=== PATIENT | female | born 1935 | race Caucasian/White ===

== ENCOUNTER 2016-10-30 09:15 | Emergency (ER) | payer BC ==
[~2016-10-30] VITALS: Ht 167.6 cm; Wt 64.0 kg
[~2016-10-30 09:15] MED LIST: CALC500C3 PO; CLC100X PO; CLR10 PO; COEN200C4 PO; DICL1GEL28 TD; FSM70 PO; LRT5 PO
[2016-10-30 09:22] VITALS: TEMP 36.5; Ht 167.6 cm; Wt 64.0 kg
[2016-10-30] MEDS ORDERED: METOPROLOL TARTRATE 50 MG TAB PO STA (09:52)
[2016-10-30] MEDS ORDERED: ONDANSETRON INJ 2 MG/ML 2 ML VIAL IV STA (09:53)
[2016-10-30 09:58] LABS: BASO % 0.1 %; BASO ABS # 0.02 K/uL (0-0.2); COMPLETE YES; EOS % 0.1 %; HEMATOCRIT 47.1 % (37-47); IG% 0.2 %; LYMPH ABS # 1.61 K/uL (1.2-3.4); MEAN CELL VOLUME 94.4 fL (80-100); MEAN CORPUSCULAR HEMOGLOBIN 32.5 pg (25-34); MEAN CORPUSCULAR HGB CONC 34.4 g/dl (32-36); NEUT % 84.6 %; PLATELET COUNT 213 K/uL (130-400); RED BLOOD COUNT 4.99 M/uL (4.2-5.4); WHITE BLOOD COUNT 17.95 K/uL (4.8-10.8)
[2016-10-30] MEDS ORDERED: COEN150C PO (09:59)
[2016-10-30] MEDS ORDERED: DOCU-94 PO (10:02)
[2016-10-30] MEDS ORDERED: HYDR-3419 PO (10:02)
[2016-10-30 10:32] LABS: ALKALINE PHOSPHATASE 87 U/L (45-117); ALT/SGPT 25 U/L (12-78); BLOOD UREA NITROGEN 11 mg/dl (7-18); BUN/CREATININE RATIO 15.2 (10-20); CALCIUM 9.1 mg/dl (8.5-10.1); CARBON DIOXIDE 32 mmol/L (21-32); CHLORIDE 96 mmol/L (98-107); CREATININE 0.75 mg/dl (0.60-1.20); GLUCOSE 140 mg/dl (70-99)
[2016-10-30 10:39] LABS: POTASSIUM 3.5 mmol/L (3.5-5.1); SODIUM 136 mmol/L (136-145)
--- NOTE | 2016-10-30 10:44 | DIAGNOSTIC IMAGING REPORT ---
CHEST ONE VIEW PORTABLE CLINICAL HISTORY: Altered mental status. Weakness. COMPARISON STUDY: Chest radiograph March 12, 2014. FINDINGS: Lung volumes are mildly diminished. There is no pneumothorax or pleural effusion. There is no evidence of pulmonary edema. No consolidation is identified. Cardiomediastinal silhouette is normal. IMPRESSION: No acute cardiopulmonary findings. Electronically signed by: Cornelio Davison M.D. 10/30/2016 10:42 AM Dictated Date/Time: 10/30/2016 10:42 AM
[2016-10-30 10:47] LABS: AST/SGOT 19 U/L (15-37); CKMB/CK RATIO 1.7 (0-3.0); MAGNESIUM 1.9 mg/dl (1.8-2.4)
[2016-10-30 10:53] LABS: URINE APPEARANCE CLEAR (CLEAR); URINE BILIRUBIN NEG (NEG); URINE COLOR YELLOW; URINE NITRITE NEG (NEG); URINE SPECIFIC GRAVITY 1.009 (1.000-1.030); UROBILINOGEN NEG (NEG); ZZUR CULT IF INDIC CLEAN CATCH NO
[2016-10-30 10:55] LABS: MANUAL MICROSCOPIC REQUIRED? NO; REVIEW REQ? NO
[2016-10-30] MEDS ORDERED: EZET10TA47 PO (11:17)
[2016-10-30] MEDS ORDERED: DULO-24 PO (11:17)
[2016-10-30] MEDS ORDERED: CLB/200 PO (11:17)
[2016-10-30] MEDS ORDERED: METO50TA16 PO (11:17)
--- NOTE | 2016-10-30 11:28 | DIAGNOSTIC IMAGING REPORT ---
HEAD CT NONCONTRAST CT DOSE: 537.48 mGy.cm HISTORY: Mental status change EVALUATE ALTERED MENTAL STATUS/WEAKNESS TECHNIQUE: Multiaxial CT images of the head were performed without the use of intravenous contrast. Comparison: None. Findings: The paranasal sinuses and mastoid air cells are clear. Findings of mild chronic small vessel change of aging. Ventricular system is midline. Mild benign tentorial calcification. No acute intracranial hemorrhage Impression: Age-related change. No acute process. Electronically signed by: Wlilie Montes M.D. 10/30/2016 11:26 AM Dictated Date/Time: 10/30/2016 11:26 AM
[2016-10-30 11:32] LABS: PARTIAL THROMBOPLASTIN RATIO 1.1; PROTHROMBIN TIME (PATIENT) 11.2 SECONDS (9.0-12.0)
[2016-10-30] MEDS ORDERED: PROCHLORPERAZINE 5 MG/ML 2 ML VIAL IV STA (11:52)
[2016-10-30] MEDS ORDERED: AMLO5TAB2 PO (11:58)
--- NOTE | 2016-10-30 11:58 | EMERGENCY ROOM VISIT NOTE ---
History Report prepared by Jorge: Marcy Cai Under the Supervision of: Beth PraterO. First contact with patient: 09:44 Chief Complaint: HYPERTENSION Stated Complaint: HIGH BLOOD PRESSURE, NAUSEA History of Present Illness The patient is a 81 year old female who presents to the Emergency Room with complaints of persistent hypertension starting last night. She also complains of lightheadedness, and nausea. The patient denies chest pain, shortness of breath, abdominal pain, or any other complaints. She takes Metoprolol for A-Fib but did not take it this morning. The patient also complains of increased stressed at home. Her has Alzheimer's disease. Source of History: patient Onset: last night Position: other (global) Quality: other (hypertension) Timing: other (persistent) Associated Symptoms: + nausea, No SOB, No abdominal pain, No chest pain Review of Systems See HPI for pertinent positives & negatives. A total of 10 systems reviewed and were otherwise negative. Past Medical & Surgical Medical Problems: (1) A-fib (2) CHF (congestive heart failure) (3) CHF (congestive heart failure) (4) Lumbar stenosis with neurogenic claudication (5) Osteoporosis Family History No significant family history Social History Smoking Status: Never Smoker Alcohol Use: occasionally Drug Use: none Marital Status: Housing Status: lives with significant other Occupation Status: unemployed Current/Historical Medications Scheduled Amlodipine Besylate (Norvasc), 1 TAB PO DAILY Aspirin (Aspirin Ec), 81 MG PO QAM Celecoxib (CeleBREX), 1 CAP PO HS Coenzyme Q10 (Ubidecarenone) (Co Q-10), 150 MG PO DAILY Docusate Sodium (Colace), 1 CAP PO BID Duloxetine HCl (Cymbalta), 1 CAP PO HS Ezetimibe (Zetia), 10 MG PO QAM Metoprolol Tartrate (Lopressor) (Lopressor), 50 MG PO BID Multivitamins/Minerals (Mvi With Minerals), 1 TAB PO QAM Scheduled PRN Hydrocodon/Acetaminophen 5MG/300MG (Vicodin (5MG/300MG)), 1 TAB PO Q6H PRN for Pain Loratadine (Claritin), 10 MG PO DAILY PRN for ALLERGIC REACTION Allergies Coded Allergies: Penicillins (Verified Allergy, Mild, RASH, 10/30/16) Amoxicillin (Verified Allergy, Unknown, RASH, 10/30/16) Physical Exam Vital Signs Date Time Temp Pulse Resp B/P Pulse Ox O2 Delivery O2 Flow Rate FiO2 10/30/16 11:45 63 18 189/92 93 Room Air 10/30/16 11:31 65 20 206/77 92 Room Air 10/30/16 10:57 70 22 209/87 93 Room Air 10/30/16 10:05 69 18 208/96 96 Room Air 10/30/16 09:37 67 10/30/16 09:22 36.5 67 18 209/92 96 Room Air Physical Exam CONSTITUTIONAL/VITAL SIGNS: Reviewed / noted above. GENERAL: Non-toxic in appearance. INTEGUMENTARY: Warm, dry, and [place]. HEAD: Normocephalic. EYES: without scleral icterus or trauma. ENT/OROPHARYNX: clear and moist. LYMPHADENOPATHY/NECK: Is supple without lymphadenopathy or meningismus. RESPIRATORY: Lungs clear and equal. CARDIOVASCULAR: Regular rate and rhythm. GI/ABDOMEN: Soft and nontender. No organomegaly or pulsatile mass. No rebound or guarding. Normal bowel sounds. EXTREMITIES: Warm and well perfused. BACK: No CVA tenderness. NEUROLOGICAL: Intact without focal deficits. PSYCHIATRIC: normal affect. MUSCULOSKELETAL: Normally developed with good muscle tone. Medical Decision & Procedures ER Provider Diagnostic Interpretation: X ray results and stated below per my interpretation and radiologist interpretation. CT radiology results and stated below per my review and radiologist interpretation: CHEST ONE VIEW PORTABLE CLINICAL HISTORY: Altered mental status. Weakness. COMPARISON STUDY: Chest radiograph March 12, 2014. FINDINGS: Lung volumes are mildly diminished. There is no pneumothorax or pleural effusion. There is no evidence of pulmonary edema. No consolidation is identified. Cardiomediastinal silhouette is normal. IMPRESSION: No acute cardiopulmonary findings. Electronically signed by: Cornelio Davison M.D. 10/30/2016 10:42 AM Dictated Date/Time: 10/30/2016 10:[address] CT DOSE: 537.48 mGy.cm HISTORY: Mental status change EVALUATE ALTERED MENTAL STATUS/WEAKNESS TECHNIQUE: Multiaxial CT images of the head were performed without the use of intravenous contrast. Comparison: None. Findings: The paranasal sinuses and mastoid air cells are clear. Findings of mild chronic small vessel change of aging. Ventricular system is midline. Mild benign tentorial calcification. No acute intracranial hemorrhage Impression: Age-related change. No acute process. Electronically signed by: Willie Montes M.D. 10/30/2016 11:26 AM Dictated Date/Time: 10/30/2016 11:26 AM Laboratory Results 10/30/16 09:42 Red Blood Count 4.99, Mean Corpuscular Volume 94.4, Mean Corpuscular Hemoglobin 32.5, Mean Corpuscular Hemoglobin Concent 34.4, Mean Platelet Volume 10.0, Neutrophils (%) (Auto) 84.6, Lymphocytes (%) (Auto) 9.0, Monocytes (%) (Auto) 6.0, Eosinophils (%) (Auto) 0.1, Basophils (%) (Auto) 0.1, Neutrophils # (Auto) 15.19, Lymphocytes # (Auto) 1.61, Monocytes # (Auto) 1.07, Eosinophils # (Auto) 0.02, Basophils # (Auto) 0.02 10/30/16 09:42 Test 10/30/16 09:42 10/30/16 10:32 10/30/16 11:10 White Blood Count 17.95 K/uL (4.8-10.8) Red Blood Count 4.99 M/uL (4.2-5.4) Hemoglobin 16.2 g/dL (12.0-16.0) Hematocrit 47.1 % (37-47) Mean Corpuscular Volume 94.4 fL (80-100) Mean Corpuscular Hemoglobin 32.5 pg (25-34) Mean Corpuscular Hemoglobin Concent 34.4 g/dl (32-36) Platelet Count 213 K/uL (130-400) Mean Platelet Volume 10.0 fL (7.4-10.4) Neutrophils (%) (Auto) 84.6 % Lymphocytes (%) (Auto) 9.0 % Monocytes (%) (Auto) 6.0 % Eosinophils (%) (Auto) 0.1 % Basophils (%) (Auto) 0.1 % Neutrophils # (Auto) 15.19 K/uL (1.4-6.5) Lymphocytes # (Auto) 1.61 K/uL (1.2-3.4) Monocytes # (Auto) 1.07 K/uL (0.11-0.59) Eosinophils # (Auto) 0.02 K/uL (0-0.5) Basophils # (Auto) 0.02 K/uL (0-0.2) RDW Standard Deviation 44.9 fL (36.4-46.3) RDW Coefficient of Variation 13.0 % (11.5-14.5) Immature Granulocyte % (Auto) 0.2 % Immature Granulocyte # (Auto) 0.04 K/uL (0.00-0.02) Anion Gap 8.0 mmol/L (3-11) Est Creatinine Clear Calc Drug Dose 56.9 ml/min Estimated GFR () 87.9 Estimated GFR (Non- 75.8 BUN/Creatinine Ratio 15.2 (10-20) Calcium Level 9.1 mg/dl (8.5-10.1) Magnesium Level 1.9 mg/dl (1.8-2.4) Total Bilirubin 0.8 mg/dl (0.2-1) Direct Bilirubin 0.2 mg/dl (0-0.2) Aspartate Amino Transf (AST/SGOT) 19 U/L (15-37) Alanine Aminotransferase (ALT/SGPT) 25 U/L (12-78) Alkaline Phosphatase 87 U/L (45-117) Total Creatine Kinase 82 U/L (26-192) Creatine Kinase MB 1.4 ng/ml (0.5-3.6) Creatine Kinase MB Ratio 1.7 (0-3.0) Troponin I < 0.015 ng/ml (0-0.045) Total Protein 8.4 gm/dl (6.4-8.2) Albumin 4.1 gm/dl (3.4-5.0) Lipase 116 U/L (73-393) Thyroid Stimulating Hormone (TSH) 1.140 uIu/ml (0.300-4.500) Urine Color YELLOW Urine Appearance CLEAR (CLEAR) Urine pH 8.0 (4.5-7.5) Urine Specific Helix 1.009 (1.000-1.030) Urine Protein NEG (NEG) Urine Glucose (UA) NEG (NEG) Urine Ketones TRACE (NEG) Urine Occult Blood NEG (NEG) Urine Nitrite NEG (NEG) Urine Bilirubin NEG (NEG) Urine Urobilinogen NEG (NEG) Urine Leukocyte Esterase NEG (NEG) Urine WBC (Auto) 1-5 /hpf (0-5) Urine RBC (Auto) 5-10 /hpf (0-4) Urine Hyaline Casts (Auto) 0 /lpf (0-5) Urine Epithelial Cells (Auto) 10-20 /lpf (0-5) Urine Bacteria (Auto) NEG (NEG) Prothrombin Time 11.2 SECONDS (9.0-12.0) Prothromb Time International Ratio 1.0 (0.9-1.1) Activated Partial Thromboplast Time 28.2 SECONDS (21.0-31.0) Partial Thromboplastin Ratio 1.1 Laboratory results as stated above per my review. Medications Administered Medications (Trade) Dose Ordered Sig/Jordan Route Start Time Stop Time Status Last Admin Dose Admin Metoprolol Tartrate (Lopressor Tab) 50 mg NOW STAT PO 10/30/16 09:52 10/30/16 09:54 DC 10/30/16 10:08 50 MG Ondansetron HCl (Zofran Inj) 4 mg NOW STAT IV 10/30/16 09:53 10/30/16 09:54 DC 10/30/16 10:08 4 MG Amlodipine Besylate (Norvasc Tab) 5 mg NOW ONCE PO 10/30/16 12:00 10/30/16 12:01 DC 10/30/16 12:05 5 MG Prochlorperazine Edisylate (Compazine Inj) 5 mg NOW STAT IV 10/30/16 11:52 10/30/16 11:54 DC 10/30/16 12:05 5 MG ECG Indication: other (Hypertension) Rate (beats per minute): 64 Rhythm: normal sinus Findings: no acute ischemic change, no ectopy ED Course 0944: Previous medical records were reviewed. The patient was evaluated in room A07. A complete history and physical examination was performed. 0952: Lopressor Tab 50 mg PO 0953: Zofran Inj 4 mg IV 1152: Compazine Inj 5 mg IV 1200: Norvasc Tab 5 mg PO, Norvasc Tab 5 mg PO 1201: On reevaluation, the patient is resting comfortably. I discussed the results and findings with the patient. She verbalized agreement of the treatment plan. She was discharged home. Medical Decision Differential includes acute coronary syndrome, myocardial infarction, CVA, TIA, anemia, infection, pneumonia, UTI, pyelonephritis, poor nutrition, dehydration, electrolyte disturbance,hypoglycemia. This is a 81-year-old female who presents to the ED with a chief complaint of hypertension. The patient states that she has recently felt tired and lightheaded and had some nausea. She checked her blood pressure this morning and it was elevated. She came into the ED for evaluation. She denies any focal deficits. No chest pains or shortness of breath. The patient has an elevated blood pressure 209/92. Her exam does not show any abnormalities. Chest x-ray did not show acute disease. EKG shows a normal sinus rhythm. CT scan of the brain was negative for acute disease. A blood cell count was 17.95. Troponin is negative. Complete metabolic panel is negative. TSH is normal. Urine did not show infection. The patient was told the results of the test. The cause for leukocytosis is unclear. She could have a viral type syndrome as she is feeling nauseated. She had taken Zofran at home and was given IV Zofran and IV Compazine here for this. Blood pressure is elevated. She was given her normal Lopressor as she did not take her Lopressor this morning. Her blood pressure did not improve after this. She was started on Norvasc 5 mg by mouth. Looking back in the records, her BP was elevated in March nearly the same as it is now. She was given a prescription for Norvasc. She has a follow-up with PCP for recheck this week. Impression Primary Impression: Systolic hypertension Additional Impression: Nausea Scribe Attestation The scribe's documentation has been prepared under my direction and personally reviewed by me in its entirety. I confirm that the note above accurately reflects all work, treatment, procedures, and medical decision making performed by me. Departure Information Dispostion Home / Self-Care Prescriptions Amlodipine Besylate (NORVASC) 5 Mg Tab 1 TAB PO DAILY for 30 Days, #30 TAB 0 Refills Prov: Landry Hamilton D.O. 10/30/16 Referrals Preston Moreno M.D. (PCP) Patient Instructions Hypertension Control, [facility] Additional Instructions Norvasc 5 mg daily has been prescribed. Follow-up with your doctor for recheck this week to have your blood pressure recheck. Return to the emergency department for new or worsening symptoms. Continue your current medications. Problem Qualifiers
[2016-10-30] MEDS ORDERED: AMLODIPINE BESYLATE 5 MG TAB PO ONE ×2 (12:00)
[2016-10-30 12:40] VITALS: BP 183/84; PULSE 64; O2SAT 93
[2016-10-30] MEDS ORDERED: ASPI81TA28 PO (19:38)
[2016-10-30] MEDS ORDERED: MULT-513 PO (19:38)
[2016-11-08] MEDS ORDERED: CPR500 PO (12:08)
[2016-11-08] MEDS ORDERED: APIX1TAB3 PO (12:08)
[2016-11-08] MEDS ORDERED: METR500T PO (12:08)
[2016-11-08] MEDS ORDERED: PRT40 PO (12:08)
[2016-11-08] MEDS ORDERED: OXYC-57 PO (12:08)
[2016-11-08] MEDS ORDERED: CRDCD180 PO (12:08)
[2017-01-17] MEDS ORDERED: PRT/40 PO (05:58)
== END 2016-10-30 12:58 | disposition home or self-care (01) ==
LOC: C.EDB 09:17 → C.EDA 12:58
DX: I10 Essential (primary) hypertension (principal); R11.0 Nausea; I48.91 Unspecified atrial fibrillation; Z88.0 Allergy status to penicillin; Z88.1 Allergy status to other antibiotic agents

== ENCOUNTER 2016-10-31 18:22 | Inpatient (IN) | payer BC, OTHER ==
[~2016-10-31] VITALS: Ht 167.6 cm; Wt 70.6 kg
[~2016-10-31 18:22] MED LIST changes: +AMLO5TAB2 PO; +ASPI81TA28 PO; -CALC500C3 PO; +CLB/200 PO; -CLC100X PO; +COEN150C PO; -COEN200C4 PO; -DICL1GEL28 TD; +DOCU-94 PO; +DULO-24 PO; +EZET10TA47 PO; -FSM70 PO; +HYDR-3419 PO; -LRT5 PO; +METO50TA16 PO; +MULT-513 PO
[2016-10-31] MEDS ORDERED: SODIUM CHLORIDE 0.9% 1000ML 250 ML IV STA (18:34)
[2016-10-31] MEDS ORDERED: SODIUM CHLORIDE 0.9% 1000ML 1,000 ML IV STA (18:34)
[2016-10-31] MEDS ORDERED: OPTIRAY 320 IV PRN (18:45)
--- NOTE | 2016-10-31 18:52 | EMERGENCY ROOM VISIT NOTE ---
History Report prepared by Jorge: Meseret Armstrong Under the Supervision of: Dr. Schuyler Chambers M.D. First contact with patient: 18:22 Chief Complaint: WEAKNESS Stated Complaint: WEAKNESS History of Present Illness The patient is a 81 year old female who presents to the Emergency Room with complaints of worsening weakness for the past couple of days. The patient was seen in the ED yesterday for abdominal pain and hypertension. She was discharged home on Amlodipine. Per EMS, when the patient got home yesterday she told her daughter that she still was not feeling well. She has been complaining of feeling weak. Daughter told EMS that the patient seems slightly altered today. She was staring off with a blank expression on her face throughout the day today. She seemed slightly confused about some of the questions that EMS was asking her. The patient reports RLQ abdominal pain, back pain, dark colored urine, and lower leg pain and weakness bilaterally. She denies shortness of breath, chest pain, headache, fever, and numbness. EMS states that she took a hydrocodone at 230pm. She then took a nap and when she woke up she tried to walk downstairs but became too weak and had to sit down retirement down the stairs. Her oxygen saturation was in the 80s en route to the ED but improved with 2L of O2. 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 A total of 10 systems reviewed and were otherwise negative. Past Medical & Surgical Medical Problems: (1) A-fib (2) Altered mental status (3) CHF (congestive heart failure) (4) CHF (congestive heart failure) (5) Lumbar stenosis with neurogenic claudication (6) Osteoporosis (7) V tach Old medical records were reviewed. Nurse's notes were reviewed and I agree with. She is not presently on any blood thinners Family History FH: heart disease Social History Drug Use: none Marital Status: Housing Status: lives with significant other Occupation Status: unemployed Current/Historical Medications Scheduled Amlodipine Besylate (Norvasc), 1 TAB PO DAILY Aspirin (Aspirin Ec), 81 MG PO QAM Celecoxib (CeleBREX), 1 CAP PO HS Coenzyme Q10 (Ubidecarenone) (Co Q-10), 150 MG PO DAILY Docusate Sodium (Colace), 1 CAP PO BID Duloxetine HCl (Cymbalta), 1 CAP PO HS Ezetimibe (Zetia), 10 MG PO QAM Metoprolol Tartrate (Lopressor) (Lopressor), 50 MG PO BID Multivitamins/Minerals (Mvi With Minerals), 1 TAB PO QAM Scheduled PRN Hydrocodon/Acetaminophen 5MG/300MG (Vicodin (5MG/300MG)), 1 TAB PO Q6H PRN for Pain Loratadine (Claritin), 10 MG PO DAILY PRN for ALLERGIC REACTION Allergies Coded Allergies: Penicillins (Verified Allergy, Mild, RASH, 10/30/16) Amoxicillin (Verified Allergy, Unknown, RASH, 10/30/16) Physical Exam Vital Signs Date Time Temp Pulse Resp B/P Pulse Ox O2 Delivery O2 Flow Rate FiO2 10/31/16 20:07 60 42 94 10/31/16 19:59 130/85 10/31/16 19:52 72 20 94 10/31/16 19:47 153/68 10/31/16 19:37 73 38 94 10/31/16 19:29 146/75 10/31/16 19:26 112 10/31/16 19:22 81 19 95 10/31/16 19:07 62 40 92 10/31/16 18:59 132/62 10/31/16 18:52 55 40 93 10/31/16 18:42 109 10/31/16 18:38 36.6 58 30 126/54 88 Room Air 10/31/16 18:35 126/54 Physical Exam General: Well developed well nourished non-ill appearing older female in no acute distress, breathing comfortably on room air. Normal speech. Answers most questions appropriately but others appears to be confused, sometimes slowly, no slurred speech. HEENT: Normal cephalic atraumatic. Pupils are equal round and reactive to light. Extraocular movements are intact. Oropharynx is pink with moist mucous membranes. No swelling of the mouth lips or tongue. Neck: Supple with a midline trachea. No meningeal signs or stiffness, no JVD or bruits. No Stridor. Chest: Clear to auscultation bilaterally. No wheezes or rhonchi. No increased work of breathing. Heart: regular rate and rhythm. Abdomen: Soft moderately tender in the right lower abdomen. Nondistended without rebound guarding or rigidity. Extremities: Mild to moderately weak bilaterally. No cyanosis clubbing or edema. No calf tenderness or assymetry Spine/Back. Non tender to palpation. No CVA tenderness Skin: Good turgor without rashes. Neurologic exam: Cranial nerves two through 12 are intact. Motor and sensation are intact and symmetrical throughout. Medical Decision & Procedures ER Provider Diagnostic Interpretation: A repeat ECG performed in the ED reveals sinus tachycardia at 123 with frequent PVCs and PACs, left axis deviation noted. Radiology results as stated below per my review and radiologist interpretation: CHEST ONE VIEW PORTABLE HISTORY: Atypical CHEST PAIN COMPARISON: Chest 10/30/2016. FINDINGS: 5 mm nodular density within the right upper lobe will be assessed on the same day chest CTA. Patient is slightly rotated. Linear densities the left lung base consistent with subsegmental atelectasis. No new focal lung consolidations. No evidence for pulmonary edema. No pleural effusions. No pneumothorax. The heart is normal in size. IMPRESSION: No acute process within the chest. Possible 5 mm nodule within the right upper lobe will be assessed on the same day chest CT. Electronically signed by: Alfonso Hill M.D. 10/31/2016 7:42 PM Dictated Date/Time: 10/31/2016 7:40 PM Laboratory Results 10/31/16 19:00 Red Blood Count 4.84, Mean Corpuscular Volume 93.0, Mean Corpuscular Hemoglobin 32.6, Mean Corpuscular Hemoglobin Concent 35.1, Mean Platelet Volume 10.2, Neutrophils (%) (Auto) 85.8, Lymphocytes (%) (Auto) 3.9, Monocytes (%) (Auto) 9.9, Eosinophils (%) (Auto) 0.0, Basophils (%) (Auto) 0.1, Neutrophils # (Auto) 12.67, Lymphocytes # (Auto) 0.57, Monocytes # (Auto) 1.46, Eosinophils # (Auto) 0.00, Basophils # (Auto) 0.01 10/31/16 19:00 Test 10/31/16 19:00 10/31/16 19:05 10/31/16 19:15 White Blood Count 14.76 K/uL (4.8-10.8) Red Blood Count 4.84 M/uL (4.2-5.4) Hemoglobin 15.8 g/dL (12.0-16.0) Hematocrit 45.0 % (37-47) Mean Corpuscular Volume 93.0 fL (80-100) Mean Corpuscular Hemoglobin 32.6 pg (25-34) Mean Corpuscular Hemoglobin Concent 35.1 g/dl (32-36) Platelet Count 189 K/uL (130-400) Mean Platelet Volume 10.2 fL (7.4-10.4) Neutrophils (%) (Auto) 85.8 % Lymphocytes (%) (Auto) 3.9 % Monocytes (%) (Auto) 9.9 % Eosinophils (%) (Auto) 0.0 % Basophils (%) (Auto) 0.1 % Neutrophils # (Auto) 12.67 K/uL (1.4-6.5) Lymphocytes # (Auto) 0.57 K/uL (1.2-3.4) Monocytes # (Auto) 1.46 K/uL (0.11-0.59) Eosinophils # (Auto) 0.00 K/uL (0-0.5) Basophils # (Auto) 0.01 K/uL (0-0.2) RDW Standard Deviation 45.3 fL (36.4-46.3) RDW Coefficient of Variation 13.3 % (11.5-14.5) Immature Granulocyte % (Auto) 0.3 % Immature Granulocyte # (Auto) 0.05 K/uL (0.00-0.02) Urine Color DK YELLOW Urine Appearance CLOUDY (CLEAR) Urine pH 5.0 (4.5-7.5) Urine Specific Balm 1.013 (1.000-1.030) Urine Protein 1+ (NEG) Urine Glucose (UA) NEG (NEG) Urine Ketones TRACE (NEG) Urine Occult Blood 1+ (NEG) Urine Nitrite NEG (NEG) Urine Bilirubin NEG (NEG) Urine Urobilinogen NEG (NEG) Urine Leukocyte Esterase NEG (NEG) Urine WBC (Auto) 1-5 /hpf (0-5) Urine RBC (Auto) 0-4 /hpf (0-4) Urine Hyaline Casts (Auto) 1-5 /lpf (0-5) Urine Epithelial Cells (Auto) >30 /lpf (0-5) Urine Bacteria (Auto) 1+ (NEG) Urine Pathogenic Casts 0-3 GRANULAR CASTS /lpf (0) Anion Gap 11.0 mmol/L (3-11) Est Creatinine Clear Calc Drug Dose 30.5 ml/min Estimated GFR () 41.3 Estimated GFR (Non- 35.6 BUN/Creatinine Ratio 16.8 (10-20) Osmolality 276 mOsm/kg (280-300) Calcium Level 9.7 mg/dl (8.5-10.1) Magnesium Level 1.8 mg/dl (1.8-2.4) Total Bilirubin 1.6 mg/dl (0.2-1) Direct Bilirubin 0.4 mg/dl (0-0.2) Aspartate Amino Transf (AST/SGOT) 27 U/L (15-37) Alanine Aminotransferase (ALT/SGPT) 22 U/L (12-78) Alkaline Phosphatase 72 U/L (45-117) Total Protein 7.3 gm/dl (6.4-8.2) Albumin 3.5 gm/dl (3.4-5.0) Lipase 66 U/L (73-393) Thyroid Stimulating Hormone (TSH) 0.881 uIu/ml (0.300-4.500) Bedside Lactic Acid Venous 2.07 mmol/L (0.90-1.70) Bedside D-Dimer > 450 ng/mlFEU (0-450) Bedside Troponin I 0.000 ng/ml (0-0.045) Laboratory studies as stated above per my review. Medications Administered Medications (Trade) Dose Ordered Sig/Jordan Route Start Time Stop Time Status Last Admin Dose Admin Sodium Chloride 250 ml @ 999 mls/hr Q16M STAT IV 10/31/16 18:34 10/31/16 18:49 DC 10/31/16 19:00 999 MLS/HR Sodium Chloride (Nss 1000ml) 1,000 ml @ 100 mls/hr Q10H STAT IV 10/31/16 18:34 10/31/16 20:36 DC 10/31/16 19:20 100 MLS/HR Amiodarone HCL/ Dextrose (Nexterone / D5w) 150 mg NOW STAT IV 10/31/16 19:59 10/31/16 20:00 DC 10/31/16 20:15 150 MG Magnesium Sulfate (Magnesium Sulfate) 1 gm NOW STAT IV 10/31/16 20:18 10/31/16 20:20 DC 10/31/16 20:35 1 GM ECG Indication: altered mental status, weakness Rate (beats per minute): 56 Rhythm: sinus bradycardia Findings: no acute ischemic change, other (normal QRS) Comparison ECG Date: 10/30/2016 Change: no significant change ED Course 1821: Past medical records reviewed. The patient was evaluated in room C7, and a complete history and physical examination were performed. 1833: NSS 1000 ml @ 100 mls/hr IV, NSS 250 ml @ 999 mls/hr IV 1841: I reassessed the patient at this time. She agreed with the plan and seems very lucid. 1914: The patient's daughter has arrived in the ED. I spoke with both the patient and her daughter. I updated them on the results and treatment plan. 1940: I reassessed the patient and obtained a repeat ECG. 1944: [facility] was paged at this time. 1953: I reassessed the patient at this time. She is resting comfortably. She is having episodes of 2-3 beats of wide complex in a row. I discussed the results and treatment plan with the patient and her daughter. I answered all pertaining questions that they had. They expressed understanding and verbalized agreement. 1958: Nexterone 150 mg IV 2009: I spoke with Dr. Perez. We discussed the patients results and treatment plan. The patient will be evaluated by the [facility] for further management. 2015: I updated the patient and her daughter. Dr. Perez was at the bedside. 2043: I reassessed the patient. She seems more awake. She is non-tachycardic with less ectopy. 2124: I reassessed the patient again. She is much more lucid. Her HR with 90 with minimal ectopy. Medical Decision Differential diagnoses includes infection, CVA, PE, acute coronary syndrome, arrhythmia, electrolyte or metabolic abnormality. This patient comes in as described above. She was placed in room C7. She is here with several different complaints. She seems more confused today. She also has weakness in her legs. She was noted to be mildly hypoxemic as well and she's been having some abdominal pain which seems to have been more chronic. She's had no fall or trauma. She did have extensive workup yesterday and had a negative chest x-ray and urine. her white count was elevated at 17. On exam, she answers some questions appropriately but others not and her mental status seems to wax and wane. She appears in no respiratory distress but is hypoxemic. Abdomen is mildly mildly tender in the right lower abdomen. She seems weak in both her legs but has no focal neurologic findings. IV access was established. I was concerned for sepsis neurologic cardiac and other etiologies. She was hydrated with IV normal saline. I did order multiple blood testing as well as EKG and CAT scans of her head chest abdomen and pelvis. Her initial EKG shows sinus bradycardia. She has no significant electrolyte or metabolic abnormalities. White count is down from 17-14. While we're waiting to send her over to CAT scan she started been a lot of ectopy on the monitor and had a significant PACs as well as PVCs. She had multiple consecutive PVCs with small runs of V. tach. In light of this, I did give her amiodarone 150 mg IV. I attempted to contact the it security consulting director but he could not be reached by phone and did not return the call. The amiodarone seemed to settle her down. I also gave a gram of mag IV. Dr. Bauer saw her in the ER and has put additional orders for amiodarone and can admit her to the unit. She seemed to be doing much better and her mental status and seemed better. She was afebrile here. CAT scan was obtained on the way to the ICU of her head which was unremarkable. Her chest shows no evidence of PE and her abdomen shows what is likely a ruptured appendicitis Dr. Bauer is aware and has put her on antibiotics and have surgery see her as well. Consults Time Called: 2005 Consulting Physician: Dr. Perez Returned Call: [address] Perez. We discussed the patients results and treatment plan. The patient will be evaluated by the [facility] for further management. Impression Primary Impression: V tach Additional Impressions: Ruptured appendicitis Altered mental status Weakness Critical Care I have personally spent greater than 45 minutes of critical care time in the direct management of this patient. This includes bedside care, interpretation of diagnostic studies, and testing, discussion with consultants, patient, and family members, and other required patient management activities. This 45 minutes is in excess of all separately billable procedures. Scribe Attestation The scribe's documentation has been prepared under my direction and personally reviewed by me in its entirety. I confirm that the note above accurately reflects all work, treatment, procedures, and medical decision making performed by me. Departure Information Dispostion Being Evaluated By Hospitalist Patient Instructions My [facility] Problem Qualifiers
[2016-10-31 19:14] LABS: BASO % 0.1 %; BASO ABS # 0.01 K/uL (0-0.2); COMPLETE YES; IG% 0.3 %; LYMPH % 3.9 %; LYMPH ABS # 0.57 K/uL (1.2-3.4); MEAN CORPUSCULAR HEMOGLOBIN 32.6 pg (25-34); MEAN CORPUSCULAR HGB CONC 35.1 g/dl (32-36); MEAN PLATELET VOLUME 10.2 fL (7.4-10.4); MONO % 9.9 %; NEUT % 85.8 %; PLATELET COUNT 189 K/uL (130-400); RED BLOOD COUNT 4.84 M/uL (4.2-5.4); WHITE BLOOD COUNT 14.76 K/uL (4.8-10.8)
[2016-10-31 19:34] LABS: BUN/CREATININE RATIO 16.8 (10-20); CALCIUM 9.7 mg/dl (8.5-10.1); CREATININE 1.4 mg/dl (0.60-1.20); POTASSIUM 3.6 mmol/L (3.5-5.1)
--- NOTE | 2016-10-31 19:43 | DIAGNOSTIC IMAGING REPORT ---
CHEST ONE VIEW PORTABLE HISTORY: Atypical CHEST PAIN COMPARISON: Chest 10/30/2016. FINDINGS: 5 mm nodular density within the right upper lobe will be assessed on the same day chest CTA. Patient is slightly rotated. Linear densities the left lung base consistent with subsegmental atelectasis. No new focal lung consolidations. No evidence for pulmonary edema. No pleural effusions. No pneumothorax. The heart is normal in size. IMPRESSION: No acute process within the chest. Possible 5 mm nodule within the right upper lobe will be assessed on the same day chest CT. Electronically signed by: Alfonso Hill M.D. 10/31/2016 7:42 PM Dictated Date/Time: 10/31/2016 7:40 PM
[2016-10-31 19:45] LABS: URINE APPEARANCE CLOUDY (CLEAR); URINE BILIRUBIN NEG (NEG); URINE COLOR DK YELLOW; URINE EPITHELIAL CELL AUTO >30 /lpf (0-5); URINE NITRITE NEG (NEG); URINE SPECIFIC GRAVITY 1.013 (1.000-1.030); UROBILINOGEN NEG (NEG)
[2016-10-31 19:50] LABS: MANUAL MICROSCOPIC REQUIRED? NO; REVIEW REQ? YES
[2016-10-31 19:54] LABS: URINE PATH CASTS 0-3 GRANULAR CASTS /lpf (0)
[2016-10-31] MEDS ORDERED: AMIODARONE 150MG / 100ML D5W IV STA (19:59)
[2016-10-31] MEDS ORDERED: AMIODARONE IV BOLUS / DRIP IV STA (20:18)
[2016-10-31] MEDS ORDERED: MAGNESIUM SULFATE 1GM / D5W 1 GM BAG IV STA (20:18)
[2016-10-31] MEDS ORDERED: AMIODARONE / D5W 100 ML IV SCH (20:30)
[2016-10-31] MEDS ORDERED: AMIODARONE / D5W 200 ML IV SCH (20:45)
[2016-10-31] MEDS: NSS + 20MEQ KCL 1000ML 1,000 ML IV SCH (21:00)
[2016-10-31 22:10] VITALS: BP 137/60; PULSE 92; TEMP 36.4; O2SAT 93; Ht 167.6 cm; Wt 70.6 kg
--- NOTE | 2016-10-31 22:28 | DIAGNOSTIC IMAGING REPORT ---
HEAD CT NONCONTRAST CT DOSE: HISTORY: weakness, confusion TECHNIQUE: Multiaxial CT images of the head were performed without the use of intravenous contrast. Automated exposure control was utilized for this study. Comparison: Head CT 10/30/2016. Findings: The paranasal sinuses and mastoid air cells are clear. The calvarium and skull base are intact. There is no mass, hematoma, midline shift, acute infarct. White matter hypodensity is nonspecific but suggestive of microvascular ischemic change. The ventricles and sulci demonstrate mild age-related involutional changes. Stable slight increased density along the right tentorium, therefore, this is likely chronic. Impression: No significant change compared to the prior study. No acute intracranial abnormality. Electronically signed by: Alfonso Hill M.D. 10/31/2016 10:27 PM Dictated Date/Time: 10/31/2016 10:19 PM
--- NOTE | 2016-10-31 22:35 | DIAGNOSTIC IMAGING REPORT ---
CHEST CTA for PULMONARY ARTERIES CT DOSE: HISTORY: Short of breath. TECHNIQUE: Multiaxial CT images of the chest were performed following the intravenous administration of contrast to evaluate the pulmonary arteries. Maximal intensity projection images were also obtained. COMPARISON STUDY: None. FINDINGS: Mild anterior wedging within the T12 vertebral body is likely old. No acute fractures identified. The heart is normal in size. No pleural or pericardial effusions. Normal caliber thoracic aorta with no evidence for dissection. Evaluation of the subsegmental pulmonary arteries within the bilateral lower lobes are nondiagnostic due to the motion artifact. Otherwise, there are no filling defects seen within the remaining pulmonary arteries to suggest pulmonary embolus. Small hiatus hernia. No mediastinal or hilar lymphadenopathy. No acute fractures within the visualized osseous structures. No pneumothorax. The central airways are patent. 3 mm subpleural nodule along the right minor fissure is of doubtful clinical significance. Patchy densities within the base of the lower lobes. IMPRESSION: 1. No evidence for pulmonary embolus with limitations as described above. 2. Patchy densities within the bases of the bilateral lower lobes. This favors atelectasis. A pneumonia could also have a similar appearance but is considered less likely. 3. Small hiatus hernia. Electronically signed by: Alfonso Hill M.D. 10/31/2016 10:34 PM Dictated Date/Time: 10/31/2016 10:27 PM
--- NOTE | 2016-10-31 22:42 | DIAGNOSTIC IMAGING REPORT ---
ABDOMEN AND PELVIS CT WITH IV CONTRAST CT DOSE: 2.34 mGy.cm HISTORY: Sepsis. eval for infection TECHNIQUE: Multiaxial CT images of the abdomen and pelvis were performed following the use of intravenous contrast. COMPARISON STUDY: Pelvis CT 04/11/2016. FINDINGS: Left total hip arthroplasty. Old, healing left pubic ring fractures. Bilateral sacral insufficiency fractures are again noted. Small hiatus hernia. Mild thickening at the cecal base. There is a distended and fluid-filled appendix within the right lower quadrant measuring up to 16 mm in diameter. There is suggestion of a few small appendicoliths within the appendix. There is small amount of extraluminal gas within the right lower quadrant and suspected developing small abscess within the right pelvic cul-de-sac which is partially loculated. This measures 4.3 x 2.6 cm. Therefore, these findings are consistent with perforated acute appendicitis. The liver, gallbladder, pancreas, and spleen are unremarkable. Normal adrenal glands. The kidneys enhance normally. No hydronephrosis. No evidence for bowel obstruction. No retroperitoneal lymphadenopathy. The uterus enhances normally. The bladder is unremarkable. Colonic diverticulosis. IMPRESSION: 1. Above findings consistent with perforated acute appendicitis. There appears to be a small developing abscess within the right pelvic cul-de-sac. 2. No evidence for bowel obstruction. 3. Healing pelvic fractures as described above. 4. Small hiatus hernia. 5. Mild thickening at the cecal base is likely reactive to the acute appendicitis. Electronically signed by: Alfonso Hill M.D. 10/31/2016 10:41 PM Dictated Date/Time: 10/31/2016 10:34 PM
[2016-10-31] MEDS ORDERED: CIPROFLOXACIN 400MG / 200ML D5W IV STA (23:24)
[2016-10-31] MEDS ORDERED: METRONIDAZOLE 500MG / 100ML NSS IV STA (23:24)
[2016-10-31] MEDS ORDERED: METRONIDAZOLE / NSS 500 MG in PREMIXED NSS 100 ML IV SCH (23:45)
[2016-10-31] MEDS: CIPROFLOXACIN / D5W 400 MG in PREMIXED IN D5W 200 ML IV SCH (23:56)
[2016-10-31 23:59] VITALS: BP 125/48; PULSE 96; TEMP 36.5; O2SAT 92
[2016-11-01] VITALS (26 sets, daily range): BP systolic 109–151; BP diastolic 38–99; PULSE 77–99; TEMP 36.6–37.2; O2SAT 90–95
--- NOTE | 2016-11-01 01:45 | HISTORY & PHYSICAL EXAMINATION ---
DATE OF ADMISSION: 11/01/2016 REASON FOR CONSULT: Ruptured appendix. HISTORY OF PRESENT ILLNESS: The patient is a 81-year-old female, admitted through the Emergency Room with progressive weakness, some mild altered mental status and evidence on CT scan of a ruptured appendix. The patient was in the Emergency Room yesterday with lightheadedness and nausea and she also had hypertension at that point which they felt was the primary etiology. She has had some ventricular ectopy and is currently on an amiodarone drip because of very short runs of V-tach in the ER. There is also some concern that because of her A-Fib she could have had emboli to the brain, although CT scan yesterday did not show this. Her other history includes history of A-Fib and congestive heart failure. She does have this recent history of 2-3 rounds of beats of V-tach. REVIEW OF SYSTEMS: Please see the HPI, 10 other systems were reviewed and negative. FAMILY AND SOCIAL HISTORY: Noncontributory. She does take care of her who has Alzheimer's. MEDICATIONS: Include; Norvasc, aspirin, Cymbalta and Lopressor. ALLERGIES: SHE HAS ALLERGY TO PENICILLIN AND AMOXICILLIN. DATA: I did review her CT scan. Her white blood cell count was 14.7 slightly elevated lactic acid most likely from dehydration. PHYSICAL EXAMINATION: GENERAL: She is a mildly ill-appearing female, in no distress. She is responsive. Her skin is pale. HEENT: Her sclerae are of normal color. Her mucous membranes are dry. NECK: Supple. LUNGS: Clear. HEART: Shows regular rate and rhythm at the present time. ABDOMEN: Soft, but she does have some tenderness in the right lower abdomen to deep palpation. EXTREMITIES: Without significant edema. ASSESSMENT AND PLAN: A 81-year-old female, admitted with progressive weakness and found to have a contained ruptured appendix. She does not have a large abscess, apparently it measured at 4 x 2 cm. She has had some ventricular ectopy and is currently on amiodarone drip with cardiology to evaluate the patient. I do feel at the present time we can treat her medically, although I think in the long run she is going to do much better with appendectomy and drainage of the abscess. We will discuss this with the cardiology team and medical team in the morning and then we will make a plan. As long as she remains stable, we can continue with nonoperative treatment, but if she does become worse we may have to urgently operate. HANGD
[2016-11-01] MEDS: METRONIDAZOLE / NSS 500 MG in PREMIXED NSS 100 ML IV SCH ×3 (02:06→16:39)
--- NOTE | 2016-11-01 02:24 | Progress Note ---
Progress Note Date of Service Nov 01, 2016. Progress Note I was paged at approximately 23:00 on 10/31/2016. Result of abdomen pelvis CT had been reported. CT report shows acute perforated appendicitis. Currently the patient is doing well and is overall comfortable. I noted to the nurse that I would be over to promptly evaluate the patient I arrived at the to the bedside to assess the patient: SUBJECTIVE: Mrs. Young is comfortable at this time. She does note mild lower abdominal pain, but does not radiate into the back or flanks. She is slightly confused and is unable to give me qualifiers of her pain. OBJECTIVE: Vital signs on the monitor: HR 96; SPO2 92%; BP 134/63; RR 28; afebrile General inspection: Patient appears comfortable, slightly confused, alert and oriented to person and place but not time. Does not appear to be in acute distress Cardiac: S1 and S2 with no added sounds or murmurs Abdomen: Abdomen soft, diffuse mild lower abdominal tenderness, pain in the left lower quadrant as well as left lower quadrant rebound pain, right lower quadrant pain to palpation. The abdomen does not appear distended and there is no evidence of guarding or rigidity. ASSESSMENT/PLAN: 81-year-old female admitted for weakness and altered mental status found on CT to have an acute appendicitis with perforation. Hemodynamically the patient is stable at this time and looks overall well considering findings of perforation on imaging. I have placed a an urgent consultation for the patient to be evaluated by general surgery. I did discuss the case directly with Dr. Patel, who will come to evaluate the patient. Her sisters are at the bedside, I have updated them on the situation. I've also phoned the patient's daughter and SHOAIB Ward, to inform her of the CT findings and need for possible surgery if patient decompensates The patient herself did express to me that if she required urgent surgery, she would like to have it done. I did also confirm this with her daughter since the patient is somewhat confused, and the daughter also states that if emergently required overnight she would like her mother to have the procedure done. In the meantime, I have started Cipro and Flagyl IV for antibiotic coverage. At this time I will continue to monitor the patient clinically into the overnight and unless clinical status changes, I will sign out to the day team.
[2016-11-01] MEDS: AMIODARONE / D5W 200 ML IV SCH ×2 (02:44→13:57)
--- NOTE | 2016-11-01 03:36 | History and Physical ---
History & Physical Date & Time of Service: Nov 01, 2016 at 03:19 Chief Complaint: Altered Mental Status, V Tach Primary Care Physician: Preston Moreno M.D. History of Present Illness Source: patient, family The patient is a 81-year-old female who is brought into the emergency department with family with complaints of worsening weakness and abdominal pain the past couple days. She had been seen in the emergency department the previous day for abdominal pain and hypertension was discharged home on amlodipine. Daughter reports that patient seems more altered mental status- copeland today, often starting off with a blank expression on her face, and acting more confused. She woke up after a nap this afternoon, and that she try to walk downstairs she became too weak and had sit down senior living downstairs to rest. When she was seen by EMS at home, she was found to be altered, and en route her pulse ox was in the 80s and improved with 2 L of oxygen. Past Medical/Surgical History Medical Problems: (1) A-fib Status: Resolved (2) CHF (congestive heart failure) Status: Resolved (3) CHF (congestive heart failure) Status: Resolved (4) Lumbar stenosis with neurogenic claudication Status: Resolved (5) Osteoporosis Status: Chronic Family History FH: heart disease Social History Smoking Status: Never Smoker Smokeless Tobacco Use: No Alcohol Use: none Drug Use: none Marital Status: Housing status: lives with family Occupational Status: unemployed Immunizations History of Tetanus Vaccine?: UNSURE History of Pneumococcal: 2003 History of Hepatitis B Vaccine: No Multi-Drug Resistant Organisms History of MDRO: No Allergies Coded Allergies: Penicillins (Verified Allergy, Mild, RASH, 10/30/16) Amoxicillin (Verified Allergy, Unknown, RASH, 10/30/16) Home Medications Scheduled Amlodipine Besylate (Norvasc), 1 TAB PO DAILY Aspirin (Aspirin Ec), 81 MG PO QAM Celecoxib (CeleBREX), 1 CAP PO HS Coenzyme Q10 (Ubidecarenone) (Co Q-10), 150 MG PO DAILY Docusate Sodium (Colace), 1 CAP PO BID Duloxetine HCl (Cymbalta), 1 CAP PO HS Ezetimibe (Zetia), 10 MG PO QAM Metoprolol Tartrate (Lopressor) (Lopressor), 50 MG PO BID Multivitamins/Minerals (Mvi With Minerals), 1 TAB PO QAM Scheduled PRN Hydrocodon/Acetaminophen 5MG/300MG (Vicodin (5MG/300MG)), 1 TAB PO Q6H PRN for Pain Loratadine (Claritin), 10 MG PO DAILY PRN for ALLERGIC REACTION Review of Systems The patient denies chest pain, palpitations, shortness of breath, cough, lower extremity swelling, vision change, hearing change, sore throat, fevers, chills, sweats, weight change, nausea, vomiting, blood in urine or stool, dysuria, urinary frequency or urgency, headache, rash, abnormal bruising or bleeding, focal weakness, numbness or tingling in arms or legs, arthralgias or myalgias, back or neck pain, night sweats, or allergy symptoms. The review of systems is otherwise negative other than for that already noted above, and at least 10 systems have been reviewed. Physical Exam Vital Signs Date Time Temp Pulse Resp B/P Pulse Ox O2 Delivery O2 Flow Rate FiO2 11/01/16 00:59 94 18 118/56 93 Nasal Cannula 2.0 11/01/16 00:00 Nasal Cannula 2.0 10/31/16 23:59 36.5 96 16 125/48 92 Nasal Cannula 2.0 10/31/16 22:10 36.4 92 30 137/60 93 Room Air 10/31/16 21:30 95 20 117/68 93 Nasal Cannula 2.0 10/31/16 21:14 116/54 10/31/16 21:07 92 20 91 10/31/16 20:59 114/76 10/31/16 20:53 113/49 10/31/16 20:52 98 20 93 10/31/16 20:44 113/49 10/31/16 20:37 102 28 92 10/31/16 20:29 131/49 10/31/16 20:22 110 34 128/62 93 10/31/16 20:07 60 42 94 10/31/16 19:59 130/85 10/31/16 19:52 72 20 94 10/31/16 19:47 153/68 10/31/16 19:37 73 38 94 10/31/16 19:29 146/75 10/31/16 19:26 112 10/31/16 19:22 81 19 95 10/31/16 19:07 62 40 92 10/31/16 18:59 132/62 10/31/16 18:52 55 40 93 10/31/16 18:42 109 10/31/16 18:38 36.6 58 30 126/54 88 Room Air 10/31/16 18:35 126/54 The patient is awake, disoriented and slow to respond, normocephalic and atraumatic, lying in bed and in no acute distress. HEENT--PERRL, EOMI, mucous membranes and oropharynx dry. Neck--supple, no JVD or bruits, thyroid normal, trachea midline, no adenopathy. Heart--tachycardic, with frequent premature contractions, no murmurs, rubs or gallops. Lungs--diminished at the bases bilaterally, no respiratory distress, no accessory muscle use. Abdomen--decreased bowel sounds, mildly distended, tender right lower quadrant. Extremities--no cyanosis, clubbing or edema. There are good distal pulses b/l. Dermatologic--normal skin turgor, normal color, warm and dry, no abnormal lymph nodes, no rash. Neurologic--cranial nerves II through XII grossly intact. Psychiatric--disoriented and lethargic. Diagnostics Laboratory Results Results Past 24 Hours Test 10/31/16 19:00 10/31/16 19:05 10/31/16 19:15 10/31/16 22:20 Range/Units White Blood Count 14.76 4.8-10.8 K/uL Red Blood Count 4.84 4.2-5.4 M/uL Hemoglobin 15.8 12.0-16.0 g/dL Hematocrit 45.0 37-47 % Mean Corpuscular Volume 93.0 80-100 fL Mean Corpuscular Hemoglobin 32.6 25-34 pg Mean Corpuscular Hemoglobin Concent 35.1 32-36 g/dl Platelet Count 189 130-400 K/uL Mean Platelet Volume 10.2 7.4-10.4 fL Neutrophils (%) (Auto) 85.8 % Lymphocytes (%) (Auto) 3.9 % Monocytes (%) (Auto) 9.9 % Eosinophils (%) (Auto) 0.0 % Basophils (%) (Auto) 0.1 % Neutrophils # (Auto) 12.67 1.4-6.5 K/uL Lymphocytes # (Auto) 0.57 1.2-3.4 K/uL Monocytes # (Auto) 1.46 0.11-0.59 K/uL Eosinophils # (Auto) 0.00 0-0.5 K/uL Basophils # (Auto) 0.01 0-0.2 K/uL RDW Standard Deviation 45.3 36.4-46.3 fL RDW Coefficient of Variation 13.3 11.5-14.5 % Immature Granulocyte % (Auto) 0.3 % Immature Granulocyte # (Auto) 0.05 0.00-0.02 K/uL Urine Color DK YELLOW Urine Appearance CLOUDY CLEAR Urine pH 5.0 4.5-7.5 Urine Specific Sandy 1.013 1.000-1.030 Urine Protein 1+ NEG Urine Glucose (UA) NEG NEG Urine Ketones TRACE NEG Urine Occult Blood 1+ NEG Urine Nitrite NEG NEG Urine Bilirubin NEG NEG Urine Urobilinogen NEG NEG Urine Leukocyte Esterase NEG NEG Urine WBC (Auto) 1-5 0-5 /hpf Urine RBC (Auto) 0-4 0-4 /hpf Urine Hyaline Casts (Auto) 1-5 0-5 /lpf Urine Epithelial Cells (Auto) >30 0-5 /lpf Urine Bacteria (Auto) 1+ NEG Urine Pathogenic Casts 0-3 GRANULAR CASTS 0 /lpf Sodium Level 128 136-145 mmol/L Potassium Level 3.6 3.5-5.1 mmol/L Chloride Level 91 98-107 mmol/L Carbon Dioxide Level 26 21-32 mmol/L Anion Gap 11.0 3-11 mmol/L Blood Urea Nitrogen 24 7-18 mg/dl Creatinine 1.40 0.60-1.20 mg/dl Est Creatinine Clear Calc Drug Dose 30.5 ml/min Estimated GFR () 41.3 Estimated GFR (Non- 35.6 BUN/Creatinine Ratio 16.8 10-20 Random Glucose 177 70-99 mg/dl Osmolality 276 280-300 mOsm/kg Calcium Level 9.7 8.5-10.1 mg/dl Magnesium Level 1.8 1.8-2.4 mg/dl Total Bilirubin 1.6 0.2-1 mg/dl Direct Bilirubin 0.4 0-0.2 mg/dl Aspartate Amino Transf (AST/SGOT) 27 15-37 U/L Alanine Aminotransferase (ALT/SGPT) 22 12-78 U/L Alkaline Phosphatase 72 45-117 U/L Total Protein 7.3 6.4-8.2 gm/dl Albumin 3.5 3.4-5.0 gm/dl Lipase 66 73-393 U/L Thyroid Stimulating Hormone (TSH) 0.881 0.300-4.500 uIu/ml Bedside Lactic Acid Venous 2.07 0.90-1.70 mmol/L Bedside D-Dimer > 450 0-450 ng/mlFEU Bedside Troponin I 0.000 0-0.045 ng/ml Lactic Acid Level 2.1 0.4-2.0 mmol/L Test 11/01/16 01:10 Range/Units Microbiology Results 10/31/16 Blood Culture, Received Pending 10/31/16 Blood Culture, Received Pending 11/01/16 MRSA DNA Surveillance Screen, Tian Batch Pending 10/31/16 Urine Culture, Received Pending Diagnostic Radiology Patient Name: FLYNN GABRIEL Unit Number: [id number] Dictated: 10/31/161939 Transcribed: 10/31/161939 [email or web address] Printed Date/Time: [~ rep prt dt]/[~ rep prt tm] [~ rep ct labl] - [~ rep ct ivnm] [facility] [place] [address] Dictated: 10/31/161939 Transcribed: 10/31/161939 [email or web address] Printed Date/Time: [~ rep prt dt]/[~ rep prt tm] [~ rep ct labl] - [~ rep ct ivnm] CHEST ONE VIEW PORTABLE HISTORY: Atypical CHEST PAIN COMPARISON: Chest 10/30/2016. FINDINGS: 5 mm nodular density within the right upper lobe will be assessed on the same day chest CTA. Patient is slightly rotated. Linear densities the left lung base consistent with subsegmental atelectasis. No new focal lung consolidations. No evidence for pulmonary edema. No pleural effusions. No pneumothorax. The heart is normal in size. IMPRESSION: No acute process within the chest. Possible 5 mm nodule within the right upper lobe will be assessed on the same day chest CT. Electronically signed by: Alfonso Hill M.D. 10/31/2016 7:42 PM Dictated Date/Time: 10/31/2016 7:40 PM The status of this report is Signed. Draft = Not yet reviewed or approved by Radiologist. Signed = Reviewed and approved by Radiologist. <AttendingPhy></AttendingPhy> <FamilyPhy>Preston Moreno M.D.</FamilyPhy > <PrimaryPhy>Preston Moreno M.D.</PrimaryPhy> <UnitNumber>[id number]</ UnitNumber> <VisitNumber>[id number]</VisitNumber> <PatientName>FLYNN GABRIEL</ PatientName> <DateOfBirth>1935</DateOfBirth> <Location>C.EDC</Location> < ServiceDate>10/31/16</ServiceDate> <MNE>ESINDI</MNE> <OrderingPhy>Schuyler Chambers M.D.</OrderingPhy> <OrderingPhyMNE>f rep ord dr salomon</OrderingPhyMNE> < DictatingPhyMNE>f rep dict dr salomon</DictatingPhyMNE> <CCListMNE>f rep ct mne</ CCListMNE> <AdmittingPhyMNE>f pt admit dr salomon</AdmittingPhyMNE> <AttendingPhyMNE >f pt attend dr salomon</AttendingPhyMNE> <ConsultingPhyMNE>f pt consult dr salomon</ConsultingPhyMNE> <FamilyPhyMNE>f pt fam dr salomon</FamilyPhyMNE> <OtherPhyMNE>f pt other dr salomon</OtherPhyMNE> < PrimaryPhyMNE>f pt prim care dr salomon</PrimaryPhyMNE> <ReferringPhyMNE>f pt referring dr salomon</ReferringPhyMNE> Patient Name: FLYNN GABRIEL Unit Number: [id number] Dictated: 10/31/162218 Transcribed: 10/31/162218 MARY Printed Date/Time: [~ rep prt dt]/[~ rep prt tm] [~ rep ct labl] - [~ rep ct ivnm] [facility] [place] [address] Dictated: 10/31/162218 Transcribed: 10/31/162218 [email or web address] Printed Date/Time: [~ rep prt dt]/[~ rep prt tm] [~ rep ct labl] - [~ rep ct ivnm] [~ rep ct add3]] HEAD CT NONCONTRAST CT DOSE: HISTORY: weakness, confusion TECHNIQUE: Multiaxial CT images of the head were performed without the use of intravenous contrast. Automated exposure control was utilized for this study. Comparison: Head CT 10/30/2016. Findings: The paranasal sinuses and mastoid air cells are clear. The calvarium and skull base are intact. There is no mass, hematoma, midline shift, acute infarct. White matter hypodensity is nonspecific but suggestive of microvascular ischemic change. The ventricles and sulci demonstrate mild age-related involutional changes. Stable slight increased density along the right tentorium, therefore, this is likely chronic. Impression: No significant change compared to the prior study. No acute intracranial abnormality. Electronically signed by: Alfonso Hill M.D. 10/31/2016 10:27 PM Dictated Date/Time: 10/31/2016 10:19 PM The status of this report is Signed. Draft = Not yet reviewed or approved by Radiologist. Signed = Reviewed and approved by Radiologist. <AttendingPhy>Shashi Perez M.D.</AttendingPhy> <FamilyPhy>Preston Moreno M.D.</FamilyPhy> <PrimaryPhy>Preston Moreno M.D.</ PrimaryPhy> <UnitNumber>[id number]</UnitNumber> <VisitNumber>[id number]</ VisitNumber> <PatientName>FLYNN GABRIEL</PatientName> <DateOfBirth>1935</ DateOfBirth> <Location>C.MSICU</Location> <ServiceDate>10/31/16</ServiceDate> < MNE>ESINDI</MNE> <OrderingPhy>Schuyler Chambers M.D.</OrderingPhy> < OrderingPhyMNE>f rep ord dr salomon</OrderingPhyMNE> <DictatingPhyMNE>f rep dict dr salomon</DictatingPhyMNE> <CCListMNE>f rep ct mne</CCListMNE> <AdmittingPhyMNE>f pt admit dr salomon</AdmittingPhyMNE> <AttendingPhyMNE>f pt attend dr salomon</ AttendingPhyMNE> <ConsultingPhyMNE>f pt consult dr aslomon</ConsultingPhyMNE> <FamilyPhyMNE>f pt fam dr salomon</FamilyPhyMNE> <OtherPhyMNE>f pt other dr salomon</OtherPhyMNE> < PrimaryPhyMNE>f pt prim care dr salomon</PrimaryPhyMNE> <ReferringPhyMNE>f pt referring dr salomon</ReferringPhyMNE> Patient Name: FLYNN GABRIEL Unit Number: [id number] Dictated: 10/31/162226 Transcribed: 10/31/162226 [facility] Printed Date/Time: [~ rep prt dt]/[~ rep prt tm] [~ rep ct labl] - [~ rep ct ivnm] [facility] [place] [address] Dictated: 10/31/162226 Transcribed: 10/31/162226 [facility] Printed Date/Time: [~ rep prt dt]/[~ rep prt tm] [~ rep ct labl] - [~ rep ct ivnm] [~ rep ct add3]] CHEST CTA for PULMONARY ARTERIES CT DOSE: HISTORY: Short of breath. TECHNIQUE: Multiaxial CT images of the chest were performed following the intravenous administration of contrast to evaluate the pulmonary arteries. Maximal intensity projection images were also obtained. COMPARISON STUDY: None. FINDINGS: Mild anterior wedging within the T12 vertebral body is likely old. No acute fractures identified. The heart is normal in size. No pleural or pericardial effusions. Normal caliber thoracic aorta with no evidence for dissection. Evaluation of the subsegmental pulmonary arteries within the bilateral lower lobes are nondiagnostic due to the motion artifact. Otherwise, there are no filling defects seen within the remaining pulmonary arteries to suggest pulmonary embolus. Small hiatus hernia. No mediastinal or hilar lymphadenopathy. No acute fractures within the visualized osseous structures. No pneumothorax. The central airways are patent. 3 mm subpleural nodule along the right minor fissure is of doubtful clinical significance. Patchy densities within the base of the lower lobes. IMPRESSION: 1. No evidence for pulmonary embolus with limitations as described above. 2. Patchy densities within the bases of the bilateral lower lobes. This favors atelectasis. A pneumonia could also have a similar appearance but is considered less likely. 3. Small hiatus hernia. Electronically signed by: Alfonso Hill M.D. 10/31/2016 10:34 PM Dictated Date/Time: 10/31/2016 10:27 PM The status of this report is Signed. Draft = Not yet reviewed or approved by Radiologist. Signed = Reviewed and approved by Radiologist. <AttendingPhy>Shashi Perez M.D.</AttendingPhy> <FamilyPhy>Preston Moreno M.D.</FamilyPhy> <PrimaryPhy>Preston Moreno M.D.</ PrimaryPhy> <UnitNumber>[id number]</UnitNumber> <VisitNumber>[id number]</ VisitNumber> <PatientName>FLYNN GABRIEL</PatientName> <DateOfBirth>1935</ DateOfBirth> <Location>C.MSICU</Location> <ServiceDate>10/31/16</ServiceDate> < MNE>ESINDI</MNE> <OrderingPhy>Schuyler Chambers M.D.</OrderingPhy> < OrderingPhyMNE>f rep ord dr salomon</OrderingPhyMNE> <DictatingPhyMNE>f rep dict dr salomon</DictatingPhyMNE> <CCListMNE>f rep ct aime</CCListMNE> <AdmittingPhyMNE>f pt admit dr salomon</AdmittingPhyMNE> <AttendingPhyMNE>f pt attend dr salomon</ AttendingPhyMNE> <ConsultingPhyMNE>f pt consult dr salomon</ConsultingPhyMNE> <FamilyPhyMNE>f pt fam dr salomon</FamilyPhyMNE> <OtherPhyMNE>f pt other dr salomon</OtherPhyMNE> < PrimaryPhyMNE>f pt prim care dr salomon</PrimaryPhyMNE> <ReferringPhyMNE>f pt referring dr salomon</ReferringPhyMNE> Patient Name: FLYNN GABRIEL Unit Number: [id number] Dictated: 10/31/162233 Transcribed: 10/31/162233 [facility] Printed Date/Time: [~ rep prt dt]/[~ rep prt tm] [~ rep ct labl] - [~ rep ct ivnm] [facility] [place] [address] Dictated: 10/31/162233 Transcribed: 10/31/162233 [facility] Printed Date/Time: [~ rep prt dt]/[~ rep prt tm] [~ rep ct labl] - [~ rep ct ivnm] [~ rep ct add3]] ABDOMEN AND PELVIS CT WITH IV CONTRAST CT DOSE: 2021.34 mGy.cm HISTORY: Sepsis. eval for infection TECHNIQUE: Multiaxial CT images of the abdomen and pelvis were performed following the use of intravenous contrast. COMPARISON STUDY: Pelvis CT 04/11/2016. FINDINGS: Left total hip arthroplasty. Old, healing left pubic ring fractures. Bilateral sacral insufficiency fractures are again noted. Small hiatus hernia. Mild thickening at the cecal base. There is a distended and fluid-filled appendix within the right lower quadrant measuring up to 16 mm in diameter. There is suggestion of a few small appendicoliths within the appendix. There is small amount of extraluminal gas within the right lower quadrant and suspected developing small abscess within the right pelvic cul-de-sac which is partially loculated. This measures 4.3 x 2.6 cm. Therefore, these findings are consistent with perforated acute appendicitis. The liver, gallbladder, pancreas, and spleen are unremarkable. Normal adrenal glands. The kidneys enhance normally. No hydronephrosis. No evidence for bowel obstruction. No retroperitoneal lymphadenopathy. The uterus enhances normally. The bladder is unremarkable. Colonic diverticulosis. IMPRESSION: 1. Above findings consistent with perforated acute appendicitis. There appears to be a small developing abscess within the right pelvic cul-de-sac. 2. No evidence for bowel obstruction. 3. Healing pelvic fractures as described above. 4. Small hiatus hernia. 5. Mild thickening at the cecal base is likely reactive to the acute appendicitis. Electronically signed by: Alfonso Hill M.D. 10/31/2016 10:41 PM Dictated Date/Time: 10/31/2016 10:34 PM The status of this report is Signed. Draft = Not yet reviewed or approved by Radiologist. Signed = Reviewed and approved by Radiologist. <AttendingPhy>Shashi Perez M.D.</AttendingPhy> <FamilyPhy>Preston Moreno M.D.</FamilyPhy> <PrimaryPhy>Preston Moreno M.D.</ PrimaryPhy> <UnitNumber>[id number]</UnitNumber> <VisitNumber>[id number]</ VisitNumber> <PatientName>FLYNN GABRIEL</PatientName> <DateOfBirth>1935</ DateOfBirth> <Location>C.MSICU</Location> <ServiceDate>10/31/16</ServiceDate> < MNE>ESINDI</MNE> <OrderingPhy>Schuyler Chambers M.D.</OrderingPhy> < OrderingPhyMNE>f rep ord dr salomon</OrderingPhyMNE> <DictatingPhyMNE>f rep dict dr salomon</DictatingPhyMNE> <CCListMNE>f rep ct mne</CCListMNE> <AdmittingPhyMNE>f pt admit dr salomon</AdmittingPhyMNE> <AttendingPhyMNE>f pt attend dr salomon</ AttendingPhyMNE> <ConsultingPhyMNE>f pt consult dr salomon</ConsultingPhyMNE> <FamilyPhyMNE>f pt fam dr salomon</FamilyPhyMNE> <OtherPhyMNE>f pt other dr salomon</OtherPhyMNE> < PrimaryPhyMNE>f pt prim care dr salomon</PrimaryPhyMNE> <ReferringPhyMNE>f pt referring dr salomon</ReferringPhyMNE> EKG EKG shows sinus tachycardia at 123 bpm, with frequent PVCs. Monitor while in the emergency department, as reported by the emergency department physician, showed runs of symptomatic V. tach the patient being more disoriented during these intervals. Impression Assessment and Plan Symptomatic V. tach--the patient was given serial amiodarone IV boluses of 150 mg 2, and then started on amiodarone drip with good response and heart rate and blood pressure control while in the emergency department. She was admitted to the ICU for further care. She'll have serial cardiac enzymes, cardiac rhythm monitoring, and a 2-D echocardiogram with Dopplers. Will hold amlodipine , and metoprolol tartrate 50 mg by mouth twice a day for now. Perforated appendix--the patient's presenting symptoms were that of abdominal pain, but due to the presence of symptomatic V. tach, she was first stabilized on amiodarone drip, and then CT of the abdomen and pelvis was performed, which revealed perforated appendix. She was then started on Cipro 500 mg IV twice a day and Flagyl 500 mg IV every 8 hours, with a known penicillin allergy. Surgical consult with Dr. Patel agreed that patient should be continued to be stabilized cardiovascularly but further workup to be done in the morning, and the patient would likely need surgery either later on in the day or the following day. She will continue to be nothing by mouth, and also be on normal saline with potassium chloride 20 mEq at 100 ML's per hour. Zofran 4 mg IV every 6 hours when necessary, and Protonix 40 mg IV daily. Hypercholesterolemia--hold Zetia 10 mg by mouth daily. Depression--hold Cymbalta. Arthritis--hold Celebrex. Level of Care Critical Care Advanced Directives Existing Living Will: Yes Existing Power of Inspector Balance Truing: Yes Resuscitation Status FULL RESUSCITATION VTE Prophylaxis VTE Risk Assessment Done? Y/N: Yes Risk Level: High Given or contraindicated: SCD's Note Total Time: Critical Care 30 - 74 minutes
[2016-11-01 05:12] LABS: BASO % 0.1 %; BASO ABS # 0.01 K/uL (0-0.2); COMPLETE YES; IG% 0.2 %; LYMPH % 9.3 %; LYMPH ABS # 1.51 K/uL (1.2-3.4); MEAN CELL VOLUME 94.2 fL (80-100); MEAN CORPUSCULAR HEMOGLOBIN 33.2 pg (25-34); MEAN CORPUSCULAR HGB CONC 35.2 g/dl (32-36); MEAN PLATELET VOLUME 10.3 fL (7.4-10.4); MONO % 8.3 %; NEUT % 82.1 %; PLATELET COUNT 166 K/uL (130-400); RED BLOOD COUNT 4.46 M/uL (4.2-5.4)
--- NOTE | 2016-11-01 05:27 | Surgery Progress Note ---
Surgery Progress Note Date of Service Nov 01, 2016. Subjective pt is uncomfortable from abd pain- may be worse than last pm Objective Vital Signs: Date Time Temp Pulse Resp B/P Pulse Ox O2 Delivery O2 Flow Rate FiO2 11/01/16 00:59 94 18 118/56 93 Nasal Cannula 2.0 11/01/16 00:00 Nasal Cannula 2.0 10/31/16 23:59 36.5 96 16 125/48 92 Nasal Cannula 2.0 10/31/16 22:10 36.4 92 30 137/60 93 Room Air 10/31/16 21:30 95 20 117/68 93 Nasal Cannula 2.0 10/31/16 21:14 116/54 10/31/16 21:07 92 20 91 10/31/16 20:59 114/76 10/31/16 20:53 113/49 10/31/16 20:52 98 20 93 10/31/16 20:44 113/49 10/31/16 20:37 102 28 92 10/31/16 20:29 131/49 10/31/16 20:22 110 34 128/62 93 10/31/16 20:07 60 42 94 10/31/16 19:59 130/85 10/31/16 19:52 72 20 94 10/31/16 19:47 153/68 10/31/16 19:37 73 38 94 10/31/16 19:29 146/75 10/31/16 19:26 112 10/31/16 19:22 81 19 95 10/31/16 19:07 62 40 92 10/31/16 18:59 132/62 10/31/16 18:52 55 40 93 10/31/16 18:42 109 10/31/16 18:38 36.6 58 30 126/54 88 Room Air 10/31/16 18:35 126/54 General Appearance: + mild distress (mild to moderate) Respiratory/Chest: no respiratory distress Abdomen: soft, + guarding, + tenderness Laboratory Results: Results Past 24 Hours Test 10/31/16 19:00 10/31/16 19:05 10/31/16 19:15 10/31/16 22:20 Range/Units White Blood Count 14.76 4.8-10.8 K/uL Red Blood Count 4.84 4.2-5.4 M/uL Hemoglobin 15.8 12.0-16.0 g/dL Hematocrit 45.0 37-47 % Mean Corpuscular Volume 93.0 80-100 fL Mean Corpuscular Hemoglobin 32.6 25-34 pg Mean Corpuscular Hemoglobin Concent 35.1 32-36 g/dl Platelet Count 189 130-400 K/uL Mean Platelet Volume 10.2 7.4-10.4 fL Neutrophils (%) (Auto) 85.8 % Lymphocytes (%) (Auto) 3.9 % Monocytes (%) (Auto) 9.9 % Eosinophils (%) (Auto) 0.0 % Basophils (%) (Auto) 0.1 % Neutrophils # (Auto) 12.67 1.4-6.5 K/uL Lymphocytes # (Auto) 0.57 1.2-3.4 K/uL Monocytes # (Auto) 1.46 0.11-0.59 K/uL Eosinophils # (Auto) 0.00 0-0.5 K/uL Basophils # (Auto) 0.01 0-0.2 K/uL RDW Standard Deviation 45.3 36.4-46.3 fL RDW Coefficient of Variation 13.3 11.5-14.5 % Immature Granulocyte % (Auto) 0.3 % Immature Granulocyte # (Auto) 0.05 0.00-0.02 K/uL Urine Color DK YELLOW Urine Appearance CLOUDY CLEAR Urine pH 5.0 4.5-7.5 Urine Specific Theriot 1.013 1.000-1.030 Urine Protein 1+ NEG Urine Glucose (UA) NEG NEG Urine Ketones TRACE NEG Urine Occult Blood 1+ NEG Urine Nitrite NEG NEG Urine Bilirubin NEG NEG Urine Urobilinogen NEG NEG Urine Leukocyte Esterase NEG NEG Urine WBC (Auto) 1-5 0-5 /hpf Urine RBC (Auto) 0-4 0-4 /hpf Urine Hyaline Casts (Auto) 1-5 0-5 /lpf Urine Epithelial Cells (Auto) >30 0-5 /lpf Urine Bacteria (Auto) 1+ NEG Urine Pathogenic Casts 0-3 GRANULAR CASTS 0 /lpf Sodium Level 128 136-145 mmol/L Potassium Level 3.6 3.5-5.1 mmol/L Chloride Level 91 98-107 mmol/L Carbon Dioxide Level 26 21-32 mmol/L Anion Gap 11.0 3-11 mmol/L Blood Urea Nitrogen 24 7-18 mg/dl Creatinine 1.40 0.60-1.20 mg/dl Est Creatinine Clear Calc Drug Dose 30.5 ml/min Estimated GFR () 41.3 Estimated GFR (Non- 35.6 BUN/Creatinine Ratio 16.8 10-20 Random Glucose 177 70-99 mg/dl Osmolality 276 280-300 mOsm/kg Calcium Level 9.7 8.5-10.1 mg/dl Magnesium Level 1.8 1.8-2.4 mg/dl Total Bilirubin 1.6 0.2-1 mg/dl Direct Bilirubin 0.4 0-0.2 mg/dl Aspartate Amino Transf (AST/SGOT) 27 15-37 U/L Alanine Aminotransferase (ALT/SGPT) 22 12-78 U/L Alkaline Phosphatase 72 45-117 U/L Total Protein 7.3 6.4-8.2 gm/dl Albumin 3.5 3.4-5.0 gm/dl Lipase 66 73-393 U/L Thyroid Stimulating Hormone (TSH) 0.881 0.300-4.500 uIu/ml Bedside Lactic Acid Venous 2.07 0.90-1.70 mmol/L Bedside D-Dimer > 450 0-450 ng/mlFEU Bedside Troponin I 0.000 0-0.045 ng/ml Lactic Acid Level 2.1 0.4-2.0 mmol/L Test 11/01/16 01:10 11/01/16 04:21 11/01/16 04:47 Range/Units Urine Osmolality 490 500-800 mOms/kg Creatine Kinase MB Ratio 0-3.0 White Blood Count 16.20 4.8-10.8 K/uL Red Blood Count 4.46 4.2-5.4 M/uL Hemoglobin 14.8 12.0-16.0 g/dL Hematocrit 42.0 37-47 % Mean Corpuscular Volume 94.2 80-100 fL Mean Corpuscular Hemoglobin 33.2 25-34 pg Mean Corpuscular Hemoglobin Concent 35.2 32-36 g/dl Platelet Count 166 130-400 K/uL Mean Platelet Volume 10.3 7.4-10.4 fL Neutrophils (%) (Auto) 82.1 % Lymphocytes (%) (Auto) 9.3 % Monocytes (%) (Auto) 8.3 % Eosinophils (%) (Auto) 0.0 % Basophils (%) (Auto) 0.1 % Neutrophils # (Auto) 13.30 1.4-6.5 K/uL Lymphocytes # (Auto) 1.51 1.2-3.4 K/uL Monocytes # (Auto) 1.35 0.11-0.59 K/uL Eosinophils # (Auto) 0.00 0-0.5 K/uL Basophils # (Auto) 0.01 0-0.2 K/uL RDW Standard Deviation 46.8 36.4-46.3 fL RDW Coefficient of Variation 13.6 11.5-14.5 % Immature Granulocyte % (Auto) 0.2 % Immature Granulocyte # (Auto) 0.03 0.00-0.02 K/uL Microbiology Results 10/31/16 Blood Culture, Received Pending 10/31/16 Blood Culture, Received Pending 11/01/16 MRSA DNA Surveillance Screen - Final, Complete Specimen Negative for MRSA by DNA Probe 10/31/16 Urine Culture, Received Pending Assessment & Plan 11/01/16- Pt seems more uncomfortable- certainly not improved- would favor proceeding with appendectomy and drainage of abscess today after cardio/ med eval. Will ask anesthesia to see preop
[2016-11-01 05:28] LABS: INR 1.3 (0.9-1.1); PARTIAL THROMBOPLASTIN RATIO 1.2; PROTHROMBIN TIME (PATIENT) 13.6 SECONDS (9.0-12.0)
[2016-11-01 05:53] LABS: ALT/SGPT 20 U/L (12-78); AST/SGOT 14 U/L (15-37); BLOOD UREA NITROGEN 23 mg/dl (7-18); BUN/CREATININE RATIO 21.3 (10-20); CALCIUM 8.6 mg/dl (8.5-10.1); CARBON DIOXIDE 28 mmol/L (21-32); CHLORIDE 97 mmol/L (98-107); GLUCOSE 160 mg/dl (70-99); MAGNESIUM 2.1 mg/dl (1.8-2.4); POTASSIUM 3.8 mmol/L (3.5-5.1); SODIUM 134 mmol/L (136-145)
[2016-11-01 06:03] LABS: ALKALINE PHOSPHATASE 61 U/L (45-117); PHOSPHORUS 2.8 mg/dl (2.5-4.9)
[2016-11-01] MEDS ORDERED: NEOSTIGMINE METHYLSULFATE 5 MG/5 ML SYR ONE (07:34)
[2016-11-01] MEDS ORDERED: PROPOFOL IV EMULSION 10 MG/ML 20 ML VIAL IV ONE (07:34)
[2016-11-01] MEDS ORDERED: ONDANSETRON INJ 2 MG/ML 2 ML VIAL ONE (07:34)
[2016-11-01] MEDS ORDERED: GLYCOPYRROLATE INJ 0.2 MG/ML VIAL ONE (07:34)
[2016-11-01] MEDS ORDERED: FENTANYL CITRATE INJ 50 MCG/1 ML 2 ML VIAL ONE (07:34)
[2016-11-01] MEDS ORDERED: DEXAMETHASONE SOD INJ 4 MG/ML VIAL ONE (07:34)
[2016-11-01] MEDS ORDERED: LIDOCAINE HCL 2% 2 ML VIAL (20MG/ML) ONE (07:34)
[2016-11-01] MEDS ORDERED: ROCURONIUM BROMIDE 10 MG/ML 5 ML VIAL ONE (07:34)
--- NOTE | 2016-11-01 07:41 | DIAGNOSTIC IMAGING REPORT ---
CHEST ONE VIEW PORTABLE CLINICAL HISTORY: V TACH chest pain COMPARISON STUDY: 10/31/2016 FINDINGS: The bones soft tissues and hemidiaphragms are normal. The cardiomediastinal silhouette is normal. The lungs are clear. The pulmonary vasculature is normal. IMPRESSION: Negative chest. The lungs are clear. Electronically signed by: Willie Montes M.D. 11/01/2016 7:40 AM Dictated Date/Time: 11/01/2016 7:39 AM
--- NOTE | 2016-11-01 07:46 | ECHOCARDIOGRAM REPORT ---
*NOTICE TO RECEIVING [employer] This information is strictly Confidential and protected under [place] law. [place] law prohibits you from making any further disclosure of this information unless further disclosure is expressly permitted by the written consent of the person to whom it pertains or is authorized by law. A general authorization for the release of medical or other information is not sufficient for this purpose. Hospital accepts no responsibility if the information is made available to any other person, INCLUDING THE PATIENT. Interpretation Summary * Name: FLYNN GABRIEL Study Date: 11/01/2016 07:27 AM BP: 114/48 mmHg * Patient Location: .MSICU\S\E109\S\1 HR: 96 * : 1935 (M/d/yyyy) Gender: Female Height: 66 in * Age: 81 yrs Ethnicity: CA Weight: 140 lb * Ordering Physician: Shashi Perez * Referring Physician: Self, Referred * Performed By: Monika Blank RCS * * Reason For Study: V-TACH * BSA: 1.7 m2 * The study was technically adequate. * -- Conclusions -- * Sinus rhythm with occasional premature atrial complexes was present during the echocardiogram examination. * There is mild concentric left ventricular hypertrophy. * No regional wall motion abnormalities noted. * The left ventricle is hyperdynamic. * The qualitative LV Ejection Fraction = >70 %. * The right ventricle is normal in size and function. * Aortic valve sclerosis mild, without significant aortic valvular stenosis. * The anterior mitral valve is mildly calcified. * Significant mitral regurgitation is absent. * There is no mitral valve stenosis. * Grade I diastolic dysfunction, (abnormal relaxation pattern). Procedure Details * A complete two-dimensional transthoracic echocardiogram was performed (2D, M-mode, Doppler and color flow Doppler). * A contrast injection of Definity was performed to improve assessment of LV function. * Contrast was injected into an intravenous site in the right arm. * One vial of Definity ultrasound contrast was diluted in normal saline to a total volume of 10 ml. A total of '2' ml of solution was administered during imaging. * Lot # [id number] of Definity utilized for procedure. * Expiration date OCT 27. * The attending nurse who injected the contrast agent was JOSEFINA, ICU, RN. Left Ventricle * The left ventricle is normal in size. * There is mild concentric left ventricular hypertrophy. * The left ventricle is hyperdynamic. * Ejection Fraction = >70 %. * The left ventricular wall motion is normal. * No regional wall motion abnormalities noted. Right Ventricle * The right ventricle is normal in size and function. Atria * The left atrium is mildly dilated. * Right atrial size is normal. * There is no evidence of atrial septal defect, but resolution does not allow assessment for a patent foramen ovale. Mitral Valve * The anterior mitral valve is mildly calcified. * There is no mitral valve stenosis. * Significant mitral regurgitation is absent. Tricuspid Valve * The tricuspid valve is normal. * There is no tricuspid stenosis. * Significant tricuspid regurgitation is absent. * Doppler findings do not suggest pulmonary hypertension. Aortic Valve * The aortic valve is trileaflet. * Aortic valve sclerosis mild, without significant aortic valvular stenosis. * Aortic stenosis is absent. * There is no significant aortic regurgitation. Pulmonic Valve * The pulmonary valve is not well seen, but the Doppler examination is normal without significant regurgitation or stenosis. Great Vessels * The aortic root and proximal ascending aorta are normal sized. Pericardium/Pleural * There is no pericardial effusion. Great Vessels * Normal inferior vena cava diameter and respiratory variation suggests normal central venous pressure. * Normal inferior vena cava size and collapsability with sniff indicates a normal right atrial pressure of 3 mmHg Left Ventricular Diastolic Function * Grade I diastolic dysfunction, (abnormal relaxation pattern). MMode 2D Measurements and Calculations IVSd 1.4 cm IVSs 1.6 cm LVIDd 2.8 cm LVIDs 2.2 cm LVPWd 1.1 cm LVPWs 1.4 cm IVS/LVPW 1.3 FS 19.3 % EDV(Teich) 28.3 ml ESV(Teich) 16.6 ml EF(Teich) 41.3 % EDV(cubed) 20.8 ml ESV(cubed) 11.0 ml EF(cubed) 47.4 % % IVS thick 10.1 % % LVPW thick 26.3 % LV mass(C)d 106.7 grams LV mass(C)dI 62.1 grams/m\S\2 LV mass(C)s 108.4 grams LV mass(C)sI 63.1 grams/m\S\2 SV(Teich) 11.7 ml SI(Teich) 6.8 ml/m\S\2 SV(cubed) 9.9 ml SI(cubed) 5.7 ml/m\S\2 Ao root diam 3.2 cm Ao root area 8.0 cm\S\2 LA dimension 3.4 cm LA/Ao 1.1 LVOT diam 1.5 cm LVOT area 1.9 cm\S\2 LVAd ap4 20.6 cm\S\2 LVLd ap4 7.2 cm EDV(MOD-sp4) 48.6 ml EDV(sp4-el) 50.1 ml LVAs ap4 14.7 cm\S\2 LVLs ap4 6.2 cm ESV(MOD-sp4) 29.0 ml ESV(sp4-el) 29.6 ml EF(MOD-sp4) 40.3 % EF(sp4-el) 40.8 % LVAd ap2 18.3 cm\S\2 LVLd ap2 6.3 cm EDV(MOD-sp2) 44.6 ml EDV(sp2-el) 45.6 ml LVAs ap2 12.6 cm\S\2 LVLs ap2 5.4 cm ESV(MOD-sp2) 24.1 ml ESV(sp2-el) 25.1 ml EF(MOD-sp2) 46.0 % EF(sp2-el) 44.8 % LVLd %diff -14.57 % EDV(MOD-bp) 49.7 ml LVLs %diff -15.77 % ESV(MOD-bp) 27.6 ml EF(MOD-bp) 44.4 % SV(MOD-sp4) 19.6 ml SI(MOD-sp4) 11.4 ml/m\S\2 SV(MOD-sp2) 20.5 ml SI(MOD-sp2) 11.9 ml/m\S\2 SV(MOD-bp) 22.1 ml SI(MOD-bp) 12.8 ml/m\S\2 SV(sp4-el) 20.4 ml SI(sp4-el) 11.9 ml/m\S\2 SV(sp2-el) 20.4 ml SI(sp2-el) 11.9 ml/m\S\2 Doppler Measurements and Calculations MV E max shanon 128.3 cm/sec MV A max shanon 188.2 cm/sec MV E/A 0.68 MV P1/2t max shanon 149.5 cm/sec MV P1/2t 180.4 msec MVA(P1/2t) 1.2 cm\S\2 MV dec slope 242.7 cm/sec\S\2 MV dec time 0.46 sec Ao V2 max 218.9 cm/sec Ao max PG 19.2 mmHg Ao max PG (full) 9.1 mmHg ABHIJEET(V,A) 1.3 cm\S\2 ABHIJEET(V,D) 1.3 cm\S\2 LV V1 max PG 10.1 mmHg LV V1 max 158.6 cm/sec PA V2 max 127.1 cm/sec PA max PG 6.5 mmHg TR max shanon 281.9 cm/sec
[2016-11-01] MEDS ORDERED: CLINDAMYCIN 600 MG/54 ML D5W IV ONE (08:04)
--- NOTE | 2016-11-01 08:12 | History & Physical Bridge Note ---
H&P Re-Evaluation Bridge Note: I have examined the patient, reviewed the History & Physical and in the interval since the performance of the History & Physical I have noted the following changes of clinical significance: No changes noted pt examined rlq tenderness family member at bedside procedure explained to pt including drains
[2016-11-01] MEDS: PANTOprazole INJ 40 MG in SYRINGE 0 ML IV SCH (08:23)
[2016-11-01] MEDS ORDERED: BUPIVACAINE 0.5 % 5 MG/1 ML MPF 30ML VIAL ONE (08:31)
[2016-11-01] MEDS ORDERED: LIDOCAINE/EPINEPHRINE 1% 20 ML VIAL ONE (08:43)
[2016-11-01] MEDS: ASPIRIN 81 MG ECTAB PO SCH (09:00)
[2016-11-01] MEDS ORDERED: EpHEDrine SULFATE 50MG/5ML SYR ONE (09:30)
[2016-11-01] MEDS ORDERED: SUCCINYLCHOLINE 100MG/5ML SYR IV ONE (09:30)
[2016-11-01] MEDS ORDERED: ESMOLOL HCL 10 MG/ML 10 ML VIAL ONE (09:30)
[2016-11-01] MEDS ORDERED: ETOMIDATE 2 MG/ML 20 ML VIAL IV ONE (09:30)
--- NOTE | 2016-11-01 09:38 | [facility] Post Operative Brief Note ---
Immediate Operative Summary Operative Date Nov 01, 2016. Pre-Operative Diagnosis Ruptured Appendix Post-Operative Diagnosis Ruptured Appendix Procedure(s) Performed Appendectomy(open) Surgeon Dr. Macario Rn Forensic Surgeon(s) GETACHEW Pennington Estimated Blood Loss 5 ml Findings ruptured necrotic appendicitis walled off Specimens Culture--Peritoneal Fluid--for gram stain, routine culture and sensitivity, aerobes, anerobes--sent to lab at 0930 A. Appendix Drains 19 kaur right gutter pelcis and small piece sub cut
--- NOTE | 2016-11-01 09:42 | Clinical Documentation Query ---
JARRETT Whitten : CLINICAL DOCUMENTATION QUERY Patient is a 81 year old female admitted for treatment of a perforated appendix. Admission WBC were 14.76, patient with tachypnea (30), hypoxemia (88% on room air), shortly after presentation became tachycardic (to 110's), and had elevated POC and lab drawn lactic acid levels. She is being treated with IV antibiotics, surgical consultation, and pending appendectomy with peritoneal washout. In your clinical opinion is this patient being managed for: (X ) Sepsis, POA, secondary to perforated appendix ( ) Other explanation of clinical findings (Please Explain) ( ) Unable to determine (Please Define) ( ) Need to Discuss ( ) Not Agree The medical record reflects the following clinical findings, treatment, and risk factors. Clinical Indicators: As above Treatment:She is being treated with IV antibiotics, surgical consultation, and pending appendectomy with peritoneal washout Risk Factors: Perforated appendix Please clarify and document your clinical opinion in the progress notes and discharge summary. Terms such as "probable", "suspected", "likely", "questionable", "possible", or "still to be ruled out" are acceptable. IF IN AGREEMENT, YOU MUST DOCUMENT ABOVE DIAGNOSTIC STATEMENT IN DAILY PROGRESS NOTES AND DISCHARGE SUMMARY. This document is not part of the patient's record. Thank You, Schuyler Rodriguez, YVONNE [phone]
--- NOTE | 2016-11-01 10:12 | Anesthesiology Progress Note ---
Anesthesia Post Op Note Date & Time Nov 01, 2016 at 10:12 Vital Signs Pain Intensity: 0 Vital Signs Past 12 Hours Date Time Temp Pulse Resp B/P Pulse Ox O2 Delivery O2 Flow Rate FiO2 11/01/16 10:00 10 26 147/55 96 Mask 10 11/01/16 09:54 37.1 106 24 118/97 99 Mask 10 11/01/16 08:00 Nasal Cannula 2.0 11/01/16 08:00 36.8 98 24 120/65 94 Nasal Cannula 2.0 11/01/16 05:59 99 26 109/38 94 Nasal Cannula 2.0 11/01/16 04:59 80 30 114/48 95 Nasal Cannula 2.0 11/01/16 04:00 Nasal Cannula 2.0 11/01/16 03:59 36.6 88 34 118/38 94 Nasal Cannula 2.0 11/01/16 02:59 77 31 110/44 92 Nasal Cannula 2.0 11/01/16 01:59 87 25 116/46 92 Nasal Cannula 2.0 11/01/16 00:59 94 18 118/56 93 Nasal Cannula 2.0 11/01/16 00:00 Nasal Cannula 2.0 10/31/16 23:59 36.5 96 16 125/48 92 Nasal Cannula 2.0 Notes Mental Status: alert / awake / arousable, participated in evaluation Pt Amnestic to Procedure: Yes Nausea / Vomiting: adequately controlled Pain: adequately controlled Airway Patency, RR, SpO2: stable & adequate BP & HR: stable & adequate Hydration State: stable & adequate Anesthetic Complications: no major complications apparent
[2016-11-01] MEDS ORDERED: LABETALOL HCL IV 5 MG/ML 20ML IV PRN (10:15)
[2016-11-01] MEDS ORDERED: NALOXONE HCL 0.4 MG/1 ML VIAL/CARP IV PRN (10:15)
[2016-11-01] MEDS ORDERED: ONDANSETRON INJ 2 MG/ML 2 ML VIAL IV PRN (10:15)
[2016-11-01] MEDS ORDERED: PROMETHAZINE HCL INJ 12.5 MG in SODIUM CHLORIDE 0.9% 50ML 50 ML IV PRN (10:15)
[2016-11-01] MEDS ORDERED: EpHEDrine SULFATE INJ 50 MG/ML AMP IV PRN (10:15)
[2016-11-01] MEDS ORDERED: ATROPINE SULFATE 0.1 MG/ML 5ML SYR IV PRN (10:15)
[2016-11-01] MEDS ORDERED: FENTANYL CITRATE INJ 50 MCG/1 ML 2 ML VIAL IV PRN (10:15)
--- NOTE | 2016-11-01 10:50 | OPERATIVE REPORT ---
DATE OF OPERATION: 11/01/2016 SURGEON: Dr. Macario. AUTOMATION OPERATOR: GETACHEW Pennington. PREOPERATIVE DIAGNOSIS: Ruptured appendix. POSTOPERATIVE DIAGNOSIS: Same, walled off. PROCEDURE: Open appendectomy. SUMMARY: The patient was brought into the operating room theater. The abdomen was prepped with Betadine solution and properly draped. We made about an inch and a half incision just below McBurney's point, deepened through subcutaneous tissue. This was a Alfonso-Tono incision, muscle splitting. We elevated the peritoneum and were able to identify some cloudy fluid, which we cultured. We at this point irrigated, then were able to place a finger in there and outlined the appendix that seemed to be more medially. We then easily with just blunt dissection, we were able to identify the tip of the appendix, which appeared intact, but the center appeared to be necrotic with actually some stool coming out of the opening. We then divided the mesoappendix in right angle, ligating with 2-0 silk and also some ligature of 3-0 silk. The base of the appendix was then delivered after actually the mid portion was completely ruptured. We took it in 2 pieces. This was taken down to the cecal area where I used a BOSSMAN application, and fired across the cecum where the tissue appeared to be less swollen. The area was checked for hemostasis and appeared satisfactory. The wound was cleared. The pelvis was irrigated after the patient was placed in reverse Trendelenburg and I elected to drain the pelvic area using a Telly drain which was made through a small incision below the incision, positioned towards the right gutter and pelvis, attached to skin edge with 2-0 silk. Alfonso-Tono incision was closed with a 3-0 chromic for the peritoneum and then reapproximated the muscle splitting with one single 0 Vicryl, external oblique closed with 3 interrupted [id number] of 0 Vicryl, subcutaneous tissue irrigated. We took a piece of the Telly drain in I placed it subcutaneously on the incision and attached to either side with 3-0 nylon suture, then closed it over with vertical mattress to bed the central portion of the drain in the subQ. Dressing was applied. The procedure was tolerated well by the patient. Estimated blood loss approximately 5 mL. The patient was taken to recovery room in good condition. I attest to the content of the Intraoperative Record and any orders documented therein. Any exceptio ns are noted below.
[2016-11-01] MEDS: MoRPHine SULFATE 2 MG/ML CARP IV PRN ×3 (12:14→23:45)
[2016-11-01] MEDS: POTASSIUM CHLR 10 MEQ / WTR 10 MEQ in PREMIXED WATER 100 ML IV SCH ×3 (12:15→18:02)
[2016-11-01] MEDS: CIPROFLOXACIN / D5W 400 MG in PREMIXED IN D5W 200 ML IV SCH (13:54)
[2016-11-01] MEDS: NSS + 20MEQ KCL 1000ML 1,000 ML IV SCH (13:59)
--- NOTE | 2016-11-01 16:10 | Cardiology Consultation ---
Cardiology Consultation Date of Consultation: Nov 01, 2016. Requesting Physician: Dr. Perez Reason for Consultation: AF, VT Pt evaluation today including: conversation w/ patient, physical exam, lab review, review of studies, review of inpatient medication list History of Present Illness This is a very pleasant 81-year-old woman who has a history of rapid atrial fibrillation which was identified when she presented with an acute illness on . She had normal left ventricular function at the time, she had a 3 day hospitalization and other than her initial presentation after which she converted to normal rhythm she had no further atrial fibrillation. She did have low-grade enzymes and mild congestive heart failure at that time. Subsequently it is unclear that she had any symptoms or documentation of an atrial arrhythmia until presentation here on 10/31/2016. She presented with weakness and abdominal discomfort, in the emergency room was noted to have bradycardia with frequent premature ventricular beats and short runs of nonsustained ventricular tachycardia as well as brief periods of paroxysmal atrial fibrillation. She was started on IV amiodarone. She went to surgery today for a ruptured appendix, afterwards in her room she is still having some abdominal pain but appears comfortable and lucid and has no cardiac complaints. She cannot describe symptoms of palpitations, chest discomfort, etc. leading up to or following her admission this visit. An echocardiogram done 10/31/2016 showed mild left ventricular hypertrophy, a hyperdynamic left ventricle with an ejection fraction of 70%. Past Medical/Surgical History Medical Problems: (1) A-fib Status: Resolved (2) CHF (congestive heart failure) Status: Resolved (3) CHF (congestive heart failure) Status: Resolved (4) Lumbar stenosis with neurogenic claudication Status: Resolved (5) Osteoporosis Status: Chronic Family History FH: heart disease Social History Smoking Status: Never Smoker History of Alcohol Use: No Review of Systems Constitutional: No fever, No weakness, No weight loss Respiratory: No cough, No dyspnea on exertion, No shortness of breath, No wheezing Cardiac: + see HPI, No PND, No chest pain, No edema, No orthopnea, No palpitations Abdomen: + pain, + see HPI, No GI bleeding, No diarrhea, No nausea, No vomiting Female : No problem reported Neurologic: No balance problems, No numbness/tingling, No paralysis, No weakness Heme: No abnormal bleeding/bruising, No clotting problems Endo: No fatigue Skin: No problem reported All Other Systems: Reviewed and Negative Allergies Coded Allergies: Penicillins (Verified Allergy, Mild, RASH, 10/30/16) Amoxicillin (Verified Allergy, Unknown, RASH, 10/30/16) Medications Current Inpatient Medications Medications (Trade) Dose Ordered Sig/Jordan Route Start Time Stop Time Status Last Admin Dose Admin Ioversol 100 ml 100 ml UD PRN IV 10/31/16 18:45 11/04/16 18:44 Amiodarone HCL/ Dextrose 200 ml @ 16.7 mls/hr [id number] IV 11/01/16 02:50 12/01/16 02:49 11/01/16 13:57 16.7 MLS/HR Potassium Chloride/Sodium Chloride (Nss + 20meq KCl 1000ml) 1,000 ml @ 100 mls/hr Q10H IV 10/31/16 21:00 11/30/16 20:59 11/01/16 13:59 100 MLS/HR Acetaminophen (Tylenol Tab) 650 mg Q4H PRN PO 10/31/16 20:30 11/30/16 20:29 Lorazepam 0.5 mg 0.5 mg Q4H PRN IV 10/31/16 20:30 11/30/16 20:29 Pantoprazole Sodium/Syringe (Protonix Inj/ Syringe) 10 ml @ 5 mls/min DAILY IV 11/01/16 09:00 12/01/16 08:59 11/01/16 08:23 5 MLS/MIN Aspirin 81 mg 81 mg QAM PO 11/01/16 09:00 12/01/16 08:59 Ciprofloxacin/ Dextrose 400 mg/ Prmx 200 ml @ 100 mls/hr Q12H IV 11/01/16 00:00 11/11/16 00:00 11/01/16 13:54 100 MLS/HR Metronidazole/Prmx (Flagyl / Nss/ Premixed Nss) 100 ml @ 100 mls/hr Q8H IV 11/01/16 00:00 11/11/16 00:00 11/01/16 08:22 100 MLS/HR Morphine Sulfate (MoRPHine SULFATE INJ) 2 mg Q1H PRN IV 11/01/16 10:00 11/15/16 09:59 11/01/16 13:55 2 MG Physical Exam Vital Signs Past 12 Hours Date Time Temp Pulse Resp B/P Pulse Ox O2 Delivery O2 Flow Rate FiO2 11/01/16 13:59 86 23 123/57 95 Nasal Cannula 4.0 11/01/16 12:59 80 23 136/55 95 11/01/16 12:44 19 124/99 94 11/01/16 12:29 23 122/62 95 11/01/16 12:14 21 137/58 95 11/01/16 12:00 Nasal Cannula 4.0 11/01/16 11:59 90 22 132/62 95 11/01/16 11:44 30 131/74 95 11/01/16 11:40 28 137/61 94 11/01/16 11:29 36.6 20 137/61 94 11/01/16 11:14 28 144/57 94 11/01/16 10:59 88 26 151/46 90 11/01/16 10:44 36.8 18 118/61 94 11/01/16 10:41 142/67 94 11/01/16 10:20 37.2 96 20 141/50 94 Nasal Cannula 4 11/01/16 10:10 105 24 152/54 98 Mask 10 11/01/16 10:00 107 26 147/55 96 Mask 10 11/01/16 09:54 37.1 106 24 118/97 99 Mask 10 11/01/16 08:00 Nasal Cannula 2.0 11/01/16 08:00 36.8 98 24 120/65 94 Nasal Cannula 2.0 11/01/16 05:59 99 26 109/38 94 Nasal Cannula 2.0 11/01/16 04:59 80 30 114/48 95 Nasal Cannula 2.0 Constitutional: General Apperance: heathly-appearing Level of Distress: NAD Psychiatric: Mental Status: active & alert Head: normocephalic Eyes: EOM: EOMI ENMT: normal ENT inspection, hearing grossly normal Neck: supple, no masses Lungs: Respiratory effort: no dyspnea, good air movement Auscultation: breath sounds normal, no wheezing Cardiovascular: Heart Auscultation: RRR, no murmurs, no rubs, no gallops Peripheral Pulses: Bruits: none appreciated Abdomen: Bowel Sounds: diminished Inspection & Palpation: soft, no masses, LLQ tenderness, RLQ tenderness Musculoskeletal: normal strength (5/5 throughout) Extremities: no edema Neurologic: Cranial Nerves: grossly intact Sensation: grossly intact Data Laboratory Results: Last 24 Hours Test 10/31/16 19:00 10/31/16 19:05 10/31/16 19:15 10/31/16 22:20 White Blood Count 14.76 K/uL Red Blood Count 4.84 M/uL Hemoglobin 15.8 g/dL Hematocrit 45.0 % Mean Corpuscular Volume 93.0 fL Mean Corpuscular Hemoglobin 32.6 pg Mean Corpuscular Hemoglobin Concent 35.1 g/dl Platelet Count 189 K/uL Mean Platelet Volume 10.2 fL Neutrophils (%) (Auto) 85.8 % Lymphocytes (%) (Auto) 3.9 % Monocytes (%) (Auto) 9.9 % Eosinophils (%) (Auto) 0.0 % Basophils (%) (Auto) 0.1 % Neutrophils # (Auto) 12.67 K/uL Lymphocytes # (Auto) 0.57 K/uL Monocytes # (Auto) 1.46 K/uL Eosinophils # (Auto) 0.00 K/uL Basophils # (Auto) 0.01 K/uL RDW Standard Deviation 45.3 fL RDW Coefficient of Variation 13.3 % Immature Granulocyte % (Auto) 0.3 % Immature Granulocyte # (Auto) 0.05 K/uL Urine Color DK YELLOW Urine Appearance CLOUDY Urine pH 5.0 Urine Specific [place] 1.013 Urine Protein 1+ Urine Glucose (UA) NEG Urine Ketones TRACE Urine Occult Blood 1+ Urine Nitrite NEG Urine Bilirubin NEG Urine Urobilinogen NEG Urine Leukocyte Esterase NEG Urine WBC (Auto) 1-5 /hpf Urine RBC (Auto) 0-4 /hpf Urine Hyaline Casts (Auto) 1-5 /lpf Urine Epithelial Cells (Auto) >30 /lpf Urine Bacteria (Auto) 1+ Urine Pathogenic Casts 0-3 GRANULAR CASTS /lpf Sodium Level 128 mmol/L Potassium Level 3.6 mmol/L Chloride Level 91 mmol/L Carbon Dioxide Level 26 mmol/L Anion Gap 11.0 mmol/L Blood Urea Nitrogen 24 mg/dl Creatinine 1.40 mg/dl Est Creatinine Clear Calc Drug Dose 30.5 ml/min Estimated GFR () 41.3 Estimated GFR (Non- 35.6 BUN/Creatinine Ratio 16.8 Random Glucose 177 mg/dl Osmolality 276 mOsm/kg Calcium Level 9.7 mg/dl Magnesium Level 1.8 mg/dl Total Bilirubin 1.6 mg/dl Direct Bilirubin 0.4 mg/dl Aspartate Amino Transf (AST/SGOT) 27 U/L Alanine Aminotransferase (ALT/SGPT) 22 U/L Alkaline Phosphatase 72 U/L Total Protein 7.3 gm/dl Albumin 3.5 gm/dl Lipase 66 U/L Thyroid Stimulating Hormone (TSH) 0.881 uIu/ml Bedside Lactic Acid Venous 2.07 mmol/L Bedside D-Dimer > 450 ng/mlFEU Bedside Troponin I 0.000 ng/ml Lactic Acid Level 2.1 mmol/L Test 11/01/16 01:10 11/01/16 04:47 11/01/16 12:31 Urine Osmolality 490 mOms/kg White Blood Count 16.20 K/uL Red Blood Count 4.46 M/uL Hemoglobin 14.8 g/dL Hematocrit 42.0 % Mean Corpuscular Volume 94.2 fL Mean Corpuscular Hemoglobin 33.2 pg Mean Corpuscular Hemoglobin Concent 35.2 g/dl Platelet Count 166 K/uL Mean Platelet Volume 10.3 fL Neutrophils (%) (Auto) 82.1 % Lymphocytes (%) (Auto) 9.3 % Monocytes (%) (Auto) 8.3 % Eosinophils (%) (Auto) 0.0 % Basophils (%) (Auto) 0.1 % Neutrophils # (Auto) 13.30 K/uL Lymphocytes # (Auto) 1.51 K/uL Monocytes # (Auto) 1.35 K/uL Eosinophils # (Auto) 0.00 K/uL Basophils # (Auto) 0.01 K/uL RDW Standard Deviation 46.8 fL RDW Coefficient of Variation 13.6 % Immature Granulocyte % (Auto) 0.2 % Immature Granulocyte # (Auto) 0.03 K/uL Prothrombin Time 13.6 SECONDS Prothromb Time International Ratio 1.3 Activated Partial Thromboplast Time 32.1 SECONDS Partial Thromboplastin Ratio 1.2 Sodium Level 134 mmol/L Potassium Level 3.8 mmol/L Chloride Level 97 mmol/L Carbon Dioxide Level 28 mmol/L Anion Gap 9.0 mmol/L Blood Urea Nitrogen 23 mg/dl Creatinine 1.10 mg/dl Est Creatinine Clear Calc Drug Dose 38.8 ml/min Estimated GFR () 55.3 Estimated GFR (Non- 47.7 BUN/Creatinine Ratio 21.3 Random Glucose 160 mg/dl Calcium Level 8.6 mg/dl Phosphorus Level 2.8 mg/dl Magnesium Level 2.1 mg/dl Total Bilirubin 0.5 mg/dl Direct Bilirubin 0.2 mg/dl Aspartate Amino Transf (AST/SGOT) 14 U/L Alanine Aminotransferase (ALT/SGPT) 20 U/L Alkaline Phosphatase 61 U/L Total Creatine Kinase 84 U/L 74 U/L Creatine Kinase MB 0.8 ng/ml 1.5 ng/ml Creatine Kinase MB Ratio 1.0 2.0 Troponin I < 0.015 ng/ml < 0.015 ng/ml Total Protein 6.3 gm/dl Albumin 3.0 gm/dl EKG: On arrival sinus bradycardia 56 bpm with no acute changes, essentially normal. Shortly thereafter sinus tachycardia with frequent PVCs and a ventricular triplet. Telemetry reviewed: On presentation and shortly after she had periods of bradycardia with PVCs, and short ventricular runs of nonsustained tachycardia. She also had short runs of rapidly conducted atrial fibrillation. Shortly after admission (and starting IV amiodarone) this settled down and she has been in sinus rhythm. Assessment & Plan #1. Atrial fibrillation: She has a history of atrial fibrillation during an acute illness, and she had brief atrial fibrillation here again during an acute presentation. Is not clear whether this represents a more serious arrhythmia than these brief episodes when she is acutely ill. longterm monitoring might be reasonable to future. For now I would treat her with the intravenous amiodarone overnight and then we can consider discontinuing it and see if she has recurrence of her arrhythmia. #2. Nonsustained ventricular tachycardia: She had runs of premature ventricular beats and brief nonsustained ventricular tachycardia, seemingly monomorphic. These were in association of her acute illness on presentation, and may not represent an ongoing problem. Either the intravenous amiodarone for treatment of her underlying condition and has resulted in resolution of these arrhythmias. I would probably keep her on the amiodarone overnight and then discontinue it and see what her rhythm does its own. Thank you for allowing me to participate in her care.
[2016-11-02] VITALS (9 sets, daily range): BP systolic 111–146; BP diastolic 61–72; PULSE 79–95; TEMP 36.5–37.1; O2SAT 90–95
[2016-11-02] MEDS: CIPROFLOXACIN / D5W 400 MG in PREMIXED IN D5W 200 ML IV SCH ×3 (00:23→23:15)
[2016-11-02] MEDS: METRONIDAZOLE / NSS 500 MG in PREMIXED NSS 100 ML IV SCH ×4 (00:23→23:15)
[2016-11-02] MEDS: ACETAMINOPHEN 325 MG TAB PO PRN ×2 (00:39→08:17)
[2016-11-02] MEDS: AMIODARONE / D5W 200 ML IV SCH ×2 (01:20→15:07)
[2016-11-02] MEDS: NSS + 20MEQ KCL 1000ML 1,000 ML IV SCH ×2 (03:48→16:15)
[2016-11-02] MEDS: MoRPHine SULFATE 2 MG/ML CARP IV PRN (04:59)
[2016-11-02 06:09] LABS: BASO % 0.1 %; BASO ABS # 0.01 K/uL (0-0.2); COMPLETE YES; EOS % 0.1 %; HEMATOCRIT 38.4 % (37-47); IG% 0.2 %; LYMPH % 5.5 %; LYMPH ABS # 0.78 K/uL (1.2-3.4); MEAN CELL VOLUME 93.7 fL (80-100); MEAN CORPUSCULAR HGB CONC 34.1 g/dl (32-36); MEAN PLATELET VOLUME 10.3 fL (7.4-10.4); MONO % 6.2 %; NEUT % 87.9 %; PLATELET COUNT 150 K/uL (130-400); WHITE BLOOD COUNT 14.27 K/uL (4.8-10.8)
[2016-11-02 06:20] LABS: INR 1.2 (0.9-1.1); PARTIAL THROMBOPLASTIN RATIO 1.2; PROTHROMBIN TIME (PATIENT) 12.6 SECONDS (9.0-12.0)
[2016-11-02 06:57] LABS: BUN/CREATININE RATIO 21.2 (10-20); CREATININE 0.66 mg/dl (0.60-1.20); MAGNESIUM 1.9 mg/dl (1.8-2.4); POTASSIUM 3.7 mmol/L (3.5-5.1)
[2016-11-02 07:08] LABS: PHOSPHORUS 1.3 mg/dl (2.5-4.9)
[2016-11-02] MEDS: ASPIRIN 81 MG ECTAB PO SCH (08:01)
[2016-11-02] MEDS: PANTOprazole INJ 40 MG in SYRINGE 0 ML IV SCH (08:01)
--- NOTE | 2016-11-02 08:05 | DIAGNOSTIC IMAGING REPORT ---
CHEST ONE VIEW PORTABLE HISTORY: Ventricular tachycardia. COMPARISON: Chest 11/01/2016. FINDINGS: Slight progression of the interstitial and vascular thickening suggestive of developing congestive change. Bibasilar linear densities favor subsegmental atelectasis. The heart is stable in size. No pneumothorax. No pleural effusions. IMPRESSION: Slight progression of the interstitial and vascular thickening suggestive of developing congestive change. Bibasilar linear densities favor subsegmental atelectasis. Electronically signed by: Alfonso Hill M.D. 11/02/2016 8:04 AM Dictated Date/Time: 11/02/2016 8:03 AM
--- NOTE | 2016-11-02 08:09 | Anesthesiology Progress Note ---
Anesthesia Post Op Note Date & Time Nov 02, 2016 at 08:08 Vital Signs Vital Signs Past 12 Hours Date Time Temp Pulse Resp B/P Pulse Ox O2 Delivery O2 Flow Rate FiO2 11/02/16 07:35 36.7 89 18 126/62 90 Room Air 11/02/16 04:00 92 Room Air 11/02/16 03:40 37.1 95 20 111/61 92 Room Air 11/02/16 00:01 95 Room Air 11/01/16 23:37 36.9 82 20 128/69 92 Room Air Notes Mental Status: alert / awake / arousable, participated in evaluation Pt Amnestic to Procedure: Yes Nausea / Vomiting: adequately controlled Pain: adequately controlled Airway Patency, RR, SpO2: stable & adequate BP & HR: stable & adequate Hydration State: stable & adequate Anesthetic Complications: no major complications apparent
--- NOTE | 2016-11-02 09:08 | Surgery Progress Note ---
Surgery Progress Note Date of Service Nov 02, 2016. Subjective Post OP Day: 1 + diet (some regular), + feeling well, + pain controlled, No complaints, No nausea Objective Vital Signs: Date Time Temp Pulse Resp B/P Pulse Ox O2 Delivery O2 Flow Rate FiO2 11/02/16 07:35 36.7 89 18 126/62 90 Room Air 11/02/16 04:00 92 Room Air 11/02/16 03:40 37.1 95 20 111/61 92 Room Air 11/02/16 00:01 95 Room Air 11/01/16 23:37 36.9 82 20 128/69 92 Room Air 11/01/16 20:00 95 Room Air 2.0 11/01/16 19:24 37.2 90 16 110/55 95 2.0 11/01/16 18:25 36.9 86 19 114/62 93 Nasal Cannula 3.0 11/01/16 18:17 36.8 82 22 95 2.0 11/01/16 16:00 36.8 82 22 120/61 95 Nasal Cannula 2.0 11/01/16 16:00 Nasal Cannula 2.0 11/01/16 13:59 86 23 123/57 95 Nasal Cannula 4.0 11/01/16 12:59 80 23 136/55 95 11/01/16 12:44 19 124/99 94 11/01/16 12:29 23 122/62 95 11/01/16 12:14 21 137/58 95 11/01/16 12:00 Nasal Cannula 4.0 11/01/16 11:59 90 22 132/62 95 11/01/16 11:44 30 131/74 95 11/01/16 11:40 28 137/61 94 11/01/16 11:29 36.6 20 137/61 94 11/01/16 11:14 28 144/57 94 11/01/16 10:59 88 26 151/46 90 11/01/16 10:44 36.8 18 118/61 94 11/01/16 10:41 142/67 94 11/01/16 10:20 37.2 96 20 141/50 94 Nasal Cannula 4 11/01/16 10:10 105 24 152/54 98 Mask 10 11/01/16 10:00 107 26 147/55 96 Mask 10 11/01/16 09:54 37.1 106 24 118/97 99 Mask 10 Physical Exam: Kaur drainage (25 cc overnight) Abdomen: non distended, soft Incision(s): clean, dry (dressing) Laboratory Results: Results Past 24 Hours Test 11/01/16 12:31 11/02/16 05:29 Range/Units Total Creatine Kinase 74 26-192 U/L Creatine Kinase MB 1.5 0.5-3.6 ng/ml Creatine Kinase MB Ratio 2.0 0-3.0 Troponin I < 0.015 0-0.045 ng/ml White Blood Count 14.27 4.8-10.8 K/uL Red Blood Count 4.10 4.2-5.4 M/uL Hemoglobin 13.1 12.0-16.0 g/dL Hematocrit 38.4 37-47 % Mean Corpuscular Volume 93.7 80-100 fL Mean Corpuscular Hemoglobin 32.0 25-34 pg Mean Corpuscular Hemoglobin Concent 34.1 32-36 g/dl Platelet Count 150 130-400 K/uL Mean Platelet Volume 10.3 7.4-10.4 fL Neutrophils (%) (Auto) 87.9 % Lymphocytes (%) (Auto) 5.5 % Monocytes (%) (Auto) 6.2 % Eosinophils (%) (Auto) 0.1 % Basophils (%) (Auto) 0.1 % Neutrophils # (Auto) 12.55 1.4-6.5 K/uL Lymphocytes # (Auto) 0.78 1.2-3.4 K/uL Monocytes # (Auto) 0.88 0.11-0.59 K/uL Eosinophils # (Auto) 0.02 0-0.5 K/uL Basophils # (Auto) 0.01 0-0.2 K/uL RDW Standard Deviation 47.4 36.4-46.3 fL RDW Coefficient of Variation 13.9 11.5-14.5 % Immature Granulocyte % (Auto) 0.2 % Immature Granulocyte # (Auto) 0.03 0.00-0.02 K/uL Prothrombin Time 12.6 9.0-12.0 SECONDS Prothromb Time International Ratio 1.2 0.9-1.1 Activated Partial Thromboplast Time 30.2 21.0-31.0 SECONDS Partial Thromboplastin Ratio 1.2 Sodium Level 134 136-145 mmol/L Potassium Level 3.7 3.5-5.1 mmol/L Chloride Level 99 98-107 mmol/L Carbon Dioxide Level 25 21-32 mmol/L Anion Gap 10.0 3-11 mmol/L Blood Urea Nitrogen 14 7-18 mg/dl Creatinine 0.66 0.60-1.20 mg/dl Est Creatinine Clear Calc Drug Dose 64.7 ml/min Estimated GFR () 97.4 Estimated GFR (Non- 84.0 BUN/Creatinine Ratio 21.2 10-20 Random Glucose 128 70-99 mg/dl Calcium Level 8.0 8.5-10.1 mg/dl Phosphorus Level 1.3 2.5-4.9 mg/dl Magnesium Level 1.9 1.8-2.4 mg/dl Total Bilirubin 0.5 0.2-1 mg/dl Direct Bilirubin 0.2 0-0.2 mg/dl Aspartate Amino Transf (AST/SGOT) 14 15-37 U/L Alanine Aminotransferase (ALT/SGPT) 14 12-78 U/L Alkaline Phosphatase 68 45-117 U/L Total Protein 5.9 6.4-8.2 gm/dl Albumin 2.5 3.4-5.0 gm/dl Assessment & Plan s/p appendectomy, perforated continue IV abx continue kaur remove subQ drain in a day or two
[2016-11-02] MEDS ORDERED: POTASSIUM PHOS 3 MMOL/1 ML INFUSION IV STA (09:29)
[2016-11-02] MEDS ORDERED: HYDROCODONE/ACETAMOPHEN 5/325MG TAB PO PRN (09:30)
--- NOTE | 2016-11-02 09:39 | SURGERY PROGRESS NOTE ---
DATE: 11/02/2016 Lucinda is 1st postoperative day status post an open appendectomy for perforated necrotic appendix. She is resting comfortably in no acute distress. She is alert, coherent. Intraoperative findings were discussed with the patient. Her last vitals showed a temperature of 36.7, pulse 89, respirations 18, blood pressure 126/62, O2 sats 90 on room air. Her I\T\O, she is fairly balanced. She had 200 mL of urine overnight. The laboratory this morning's potassium is 3.7, phosphorus is low at 1.3. BUN is down as is the creatinine at 0.66. White count is similarly down with a decreasing left shift, hemoglobin 13.1. The abdomen is softly distended. There is minimal drainage out of the Telly which is about 25 mL minimal sanguineous. The subcutaneous piece of Telly placed in the wound is intact. There is no drainage or cellulitis on the incision. At this point I talked to the patient and most likely she will be here until the beginning of the week. I would go slow with her diet and probably keep her more of a full liquid diet for a few days until her bowel activity returns.
[2016-11-02] MEDS ORDERED: POTASSIUM PHOSPHATE INJ 30 MMOL in SODIUM CHLORIDE 0.9% 500ML 500 ML IV SCH (10:00)
[2016-11-02] MEDS: OXYCODONE/ACETAMINOPHEN 5-325 TAB PO PRN (10:55)
[2016-11-02] MEDS ORDERED: NURSING VERBAL MED ORDER ONE (13:15)
[2016-11-02] MEDS ORDERED: ONDANSETRON INJ 2 MG/ML 2 ML VIAL ONE (13:18)
--- NOTE | 2016-11-02 13:35 | Progress Note ---
Subjective Date of Service: Nov 02, 2016. Subjective Pt evaluation today including: conversation w/ patient, physical exam, chart review, lab review, review of studies, review of inpatient medication list Problem List Medical Problems: (1) Nausea Status: Acute (2) Ruptured appendicitis Status: Acute (3) Systolic hypertension Status: Acute (4) Weakness Status: Acute Review of Systems Constitutional: No chills, No fever Respiratory: No cough, No dyspnea on exertion, No shortness of breath, No sputum, No wheezing Cardiac: No chest pain, No orthopnea Abdomen: No constipation, No diarrhea, No nausea, No pain, No vomiting Musculoskeletal: No joint pain, No muscle pain Female : No dysuria, No urinary frequency Objective Vital Signs Date Time Temp Pulse Resp B/P Pulse Ox O2 Delivery O2 Flow Rate FiO2 11/02/16 12:00 Room Air 11/02/16 11:52 36.7 81 18 132/71 92 Room Air 11/02/16 08:00 Room Air 11/02/16 07:35 36.7 89 18 126/62 90 Room Air 11/02/16 04:00 92 Room Air 11/02/16 03:40 37.1 95 20 111/61 92 Room Air 11/02/16 00:01 95 Room Air 11/01/16 23:37 36.9 82 20 128/69 92 Room Air 11/01/16 20:00 95 Room Air 2.0 11/01/16 19:24 37.2 90 16 110/55 95 2.0 11/01/16 18:25 36.9 86 19 114/62 93 Nasal Cannula 3.0 11/01/16 18:17 36.8 82 22 95 2.0 11/01/16 16:00 36.8 82 22 120/61 95 Nasal Cannula 2.0 11/01/16 16:00 Nasal Cannula 2.0 11/01/16 13:59 86 23 123/57 95 Nasal Cannula 4.0 Physical Exam General Appearance: WD/WN, no apparent distress Neck: supple, no adenopathy Respiratory/Chest: chest non-tender, lungs clear, normal breath sounds Cardiovascular: no gallop, no JVD Abdomen: non tender, soft Neurologic/Psychiatric: alert, oriented x 3 Laboratory Results Last 24 Hours Test 11/02/16 05:29 White Blood Count 14.27 K/uL Red Blood Count 4.10 M/uL Hemoglobin 13.1 g/dL Hematocrit 38.4 % Mean Corpuscular Volume 93.7 fL Mean Corpuscular Hemoglobin 32.0 pg Mean Corpuscular Hemoglobin Concent 34.1 g/dl Platelet Count 150 K/uL Mean Platelet Volume 10.3 fL Neutrophils (%) (Auto) 87.9 % Lymphocytes (%) (Auto) 5.5 % Monocytes (%) (Auto) 6.2 % Eosinophils (%) (Auto) 0.1 % Basophils (%) (Auto) 0.1 % Neutrophils # (Auto) 12.55 K/uL Lymphocytes # (Auto) 0.78 K/uL Monocytes # (Auto) 0.88 K/uL Eosinophils # (Auto) 0.02 K/uL Basophils # (Auto) 0.01 K/uL RDW Standard Deviation 47.4 fL RDW Coefficient of Variation 13.9 % Immature Granulocyte % (Auto) 0.2 % Immature Granulocyte # (Auto) 0.03 K/uL Prothrombin Time 12.6 SECONDS Prothromb Time International Ratio 1.2 Activated Partial Thromboplast Time 30.2 SECONDS Partial Thromboplastin Ratio 1.2 Sodium Level 134 mmol/L Potassium Level 3.7 mmol/L Chloride Level 99 mmol/L Carbon Dioxide Level 25 mmol/L Anion Gap 10.0 mmol/L Blood Urea Nitrogen 14 mg/dl Creatinine 0.66 mg/dl Est Creatinine Clear Calc Drug Dose 64.7 ml/min Estimated GFR () 97.4 Estimated GFR (Non- 84.0 BUN/Creatinine Ratio 21.2 Random Glucose 128 mg/dl Calcium Level 8.0 mg/dl Phosphorus Level 1.3 mg/dl Magnesium Level 1.9 mg/dl Total Bilirubin 0.5 mg/dl Direct Bilirubin 0.2 mg/dl Aspartate Amino Transf (AST/SGOT) 14 U/L Alanine Aminotransferase (ALT/SGPT) 14 U/L Alkaline Phosphatase 68 U/L Total Protein 5.9 gm/dl Albumin 2.5 gm/dl Assessment and Plan Symptomatic V. tach--the patient was given serial amiodarone IV boluses of 150 mg 2, and then started on amiodarone drip with good response and heart rate and blood pressure control while in the emergency department. She was admitted to the ICU for further care. Sepsis POA secondary to perforated appendix--the patient's presenting symptoms were that of abdominal pain, but due to the presence of symptomatic V. tach, she was first stabilized on amiodarone drip, and then CT of the abdomen and pelvis was performed, which revealed perforated appendix. She was then started on Cipro 500 mg IV twice a day and Flagyl 500 mg IV every 8 hours, with a known penicillin allergy. Surgical consult with Dr. Patel. STAT ECHO completed determined hyperdynamic LV function, no WMA, underwent open appendectomy on with drain placed. Will advance diet per general surgery recs. Hypercholesterolemia--hold Zetia 10 mg by mouth daily. Depression--hold Cymbalta. Arthritis--hold Celebrex.
--- NOTE | 2016-11-02 16:19 | Cardiology Follow-Up ---
Subjective Date of Service: Nov 02, 2016. Pt evaluation today including: conversation w/ patient, physical exam, lab review, review of studies, review of inpatient medication list History of Present Illness This is a very pleasant 81-year-old woman who has a history of rapid atrial fibrillation which was identified when she presented with an acute illness on . She had normal left ventricular function at the time, she had a 3 day hospitalization and other than her initial presentation after which she converted to normal rhythm she had no further atrial fibrillation. She did have low-grade enzymes and mild congestive heart failure at that time. Subsequently it is unclear that she had any symptoms or documentation of an atrial arrhythmia until presentation here on 10/31/2016. She presented with weakness and abdominal discomfort, in the emergency room was noted to have bradycardia with frequent premature ventricular beats and short runs of nonsustained ventricular tachycardia as well as brief periods of paroxysmal atrial fibrillation. She was started on IV amiodarone. She went to surgery today for a ruptured appendix She cannot describe symptoms of palpitations, chest discomfort, etc. leading up to or following her admission this visit. An echocardiogram done 10/31/2016 showed mild left ventricular hypertrophy, a hyperdynamic left ventricle with an ejection fraction of 70%. Cardiac enzymes have been negative. Social History Smoking Status: Never Smoker History of Alcohol Use: No Review of Systems Respiratory: No cough, No dyspnea on exertion, No shortness of breath, No sputum, No wheezing Cardiac: No chest pain, No orthopnea Medications Cardiovascular: Item Value Date Time Aspirin 81 mg 11/01/16 0900 (Ecotrin Tab) QAM/PO 11/02/16 0801 Amiodarone HCL/ 200 ml @ 16.7 mls/hr 11/01/16 0250 Dextrose .[id number]/IV 11/02/16 1507 Objective Vital Signs Past 12 Hours Date Time Temp Pulse Resp B/P Pulse Ox O2 Delivery O2 Flow Rate FiO2 11/02/16 15:30 36.6 79 20 138/72 90 Room Air 11/02/16 12:00 Room Air 11/02/16 11:52 36.7 81 18 132/71 92 Room Air 11/02/16 08:00 Room Air 11/02/16 07:35 36.7 89 18 126/62 90 Room Air Last Recorded Weight-Kilograms: 63.100 Intake & Output 8-Hour Column 11/01/16 11/02/16 11/02/16 16:00 00:00 08:00 Intake Total 1510 ml 448 ml 1347 ml Output Total 485 ml 925 ml 225 ml Balance 1025 ml -477 ml 1122 ml 24-Hour Column 11/02/16 08:00 Intake Total 3305 ml Output Total 1635 ml Balance 1670 ml Data Laboratory Results: Last 24 Hours Test 11/02/16 05:29 White Blood Count 14.27 K/uL Red Blood Count 4.10 M/uL Hemoglobin 13.1 g/dL Hematocrit 38.4 % Mean Corpuscular Volume 93.7 fL Mean Corpuscular Hemoglobin 32.0 pg Mean Corpuscular Hemoglobin Concent 34.1 g/dl Platelet Count 150 K/uL Mean Platelet Volume 10.3 fL Neutrophils (%) (Auto) 87.9 % Lymphocytes (%) (Auto) 5.5 % Monocytes (%) (Auto) 6.2 % Eosinophils (%) (Auto) 0.1 % Basophils (%) (Auto) 0.1 % Neutrophils # (Auto) 12.55 K/uL Lymphocytes # (Auto) 0.78 K/uL Monocytes # (Auto) 0.88 K/uL Eosinophils # (Auto) 0.02 K/uL Basophils # (Auto) 0.01 K/uL RDW Standard Deviation 47.4 fL RDW Coefficient of Variation 13.9 % Immature Granulocyte % (Auto) 0.2 % Immature Granulocyte # (Auto) 0.03 K/uL Prothrombin Time 12.6 SECONDS Prothromb Time International Ratio 1.2 Activated Partial Thromboplast Time 30.2 SECONDS Partial Thromboplastin Ratio 1.2 Sodium Level 134 mmol/L Potassium Level 3.7 mmol/L Chloride Level 99 mmol/L Carbon Dioxide Level 25 mmol/L Anion Gap 10.0 mmol/L Blood Urea Nitrogen 14 mg/dl Creatinine 0.66 mg/dl Est Creatinine Clear Calc Drug Dose 64.7 ml/min Estimated GFR () 97.4 Estimated GFR (Non- 84.0 BUN/Creatinine Ratio 21.2 Random Glucose 128 mg/dl Calcium Level 8.0 mg/dl Phosphorus Level 1.3 mg/dl Magnesium Level 1.9 mg/dl Total Bilirubin 0.5 mg/dl Direct Bilirubin 0.2 mg/dl Aspartate Amino Transf (AST/SGOT) 14 U/L Alanine Aminotransferase (ALT/SGPT) 14 U/L Alkaline Phosphatase 68 U/L Total Protein 5.9 gm/dl Albumin 2.5 gm/dl Telemetry reviewed: Sinus rhythm in the past 24 hours, no atrial fibrillation or DVT Assessment and Plan #1. Atrial fibrillation: She has a history of atrial fibrillation during an acute illness, and she had brief atrial fibrillation here again during an acute presentation. Is not clear whether this represents a more frequent arrhythmia than these brief episodes when she is acutely ill. skilled nursing monitoring might be reasonable to future. For now I would discontinue the amiodarone and resume her beta blockade. #2. Nonsustained ventricular tachycardia: She had runs of premature ventricular beats and brief nonsustained ventricular tachycardia, seemingly monomorphic. These were in association of her acute illness on presentation, and may not represent an ongoing problem. Either the intravenous amiodarone for treatment of her underlying condition and has resulted in resolution of these arrhythmias. I would probably discontinue amiodarone now and see if the beta- blockade will control her arrhythmia. Thank you for allowing me to participate in her care.
[2016-11-02] MEDS: METOPROLOL TARTRATE 50 MG TAB PO SCH (20:14)
[2016-11-02] MEDS: HEPARIN SOD 5000 UNIT/0.5 ML CARP SQ SCH (20:15)
[2016-11-02] MEDS: ONDANSETRON INJ 2 MG/ML 2 ML VIAL IV PRN (23:07)
[2016-11-03] VITALS (8 sets, daily range): BP systolic 132–161; BP diastolic 69–77; PULSE 75–95; TEMP 36.6–37.3; O2SAT 91–97
[2016-11-03] MEDS: ONDANSETRON INJ 2 MG/ML 2 ML VIAL IV PRN ×3 (03:27→20:38)
[2016-11-03] MEDS ORDERED: NURSING VERBAL MED ORDER ONE ×2 (05:30→09:00)
[2016-11-03] MEDS: PROMETHAZINE HCL INJ 12.5 MG in SODIUM CHLORIDE 0.9% 50ML 50 ML IV PRN ×2 (05:45→13:00)
[2016-11-03] MEDS: OXYCODONE/ACETAMINOPHEN 5-325 TAB PO PRN (05:52)
[2016-11-03 06:45] LABS: BASO % 0.1 %; BASO ABS # 0.01 K/uL (0-0.2); COMPLETE YES; EOS % 0.1 %; HEMATOCRIT 40.8 % (37-47); IG% 0.3 %; LYMPH % 3.1 %; LYMPH ABS # 0.56 K/uL (1.2-3.4); MEAN CELL VOLUME 93.2 fL (80-100); MEAN CORPUSCULAR HEMOGLOBIN 32.2 pg (25-34); MEAN CORPUSCULAR HGB CONC 34.6 g/dl (32-36); MEAN PLATELET VOLUME 10.4 fL (7.4-10.4); MONO % 6.8 %; NEUT % 89.6 %; PLATELET COUNT 184 K/uL (130-400); RED BLOOD COUNT 4.38 M/uL (4.2-5.4); WHITE BLOOD COUNT 18.22 K/uL (4.8-10.8)
[2016-11-03 07:00] LABS: INR 1.2 (0.9-1.1); PARTIAL THROMBOPLASTIN RATIO 1.2; PROTHROMBIN TIME (PATIENT) 12.7 SECONDS (9.0-12.0)
[2016-11-03 07:22] LABS: BUN/CREATININE RATIO 20.3 (10-20); CALCIUM 7.9 mg/dl (8.5-10.1); CREATININE 0.64 mg/dl (0.60-1.20); MAGNESIUM 1.9 mg/dl (1.8-2.4); POTASSIUM 4.3 mmol/L (3.5-5.1)
[2016-11-03 07:40] LABS: PHOSPHORUS 1.9 mg/dl (2.5-4.9)
[2016-11-03] MEDS: PANTOprazole INJ 40 MG in SYRINGE 0 ML IV SCH (08:11)
[2016-11-03] MEDS: METRONIDAZOLE / NSS 500 MG in PREMIXED NSS 100 ML IV SCH ×3 (08:11→23:51)
[2016-11-03] MEDS: NSS + 20MEQ KCL 1000ML 1,000 ML IV SCH ×2 (08:12→20:40)
[2016-11-03] MEDS: HEPARIN SOD 5000 UNIT/0.5 ML CARP SQ SCH ×2 (08:26→21:13)
[2016-11-03] MEDS ORDERED: SODIUM PHOSPHATE 3 MMOL/1 ML INFUSION IV STA (08:57)
[2016-11-03] MEDS: EZETIMIBE 10MG TAB PO SCH (09:00)
[2016-11-03] MEDS: ASPIRIN 81 MG ECTAB PO SCH (09:00)
[2016-11-03] MEDS: METOPROLOL TARTRATE 50 MG TAB PO SCH (09:00)
[2016-11-03] MEDS: DOCUSATE SODIUM 100 MG CAP PO SCH ×2 (09:00→20:39)
[2016-11-03] MEDS: AMLODIPINE BESYLATE 5 MG TAB PO SCH (09:00)
[2016-11-03] MEDS ORDERED: SIMETHICONE 80 MG CHEW PO PRN (09:00)
[2016-11-03] MEDS ORDERED: BISACODYL 10 MG SUPP PR PRN (09:15)
[2016-11-03] MEDS ORDERED: BISACODYL 5 MG TABEC PO ONE (09:15)
[2016-11-03] MEDS ORDERED: SODIUM PHOSPHATE INJ 21 MMOL in SODIUM CHLORIDE 0.9% 500ML 500 ML IV SCH (09:30)
--- NOTE | 2016-11-03 10:31 | Cardiology Follow-Up ---
Subjective General Date of Service: Nov 03, 2016. Pt evaluation today including: conversation w/ patient, chart review, lab review, review of studies, conversation w/ corporate health consultant History of Present Illness The patient is a 81 year old female Allergies Coded Allergies: Penicillins (Verified Allergy, Mild, RASH, 10/30/16) Amoxicillin (Verified Allergy, Unknown, RASH, 10/30/16) Social History Smoking Status: Never Smoker Hx Tobacco Use In Past Year?: No Hx Alcohol Use - Type And Amou: No Hx Substance Use - Type And Am: No Problem List Medical Problems: (1) Nausea Status: Acute (2) Ruptured appendicitis Status: Acute (3) Systolic hypertension Status: Acute (4) Weakness Status: Acute Review of Systems Respiratory: No cough, No shortness of breath Cardiac: No chest pain, No edema, No palpitations Additional ROS Details: Nausea, distended abd, feels poorly Physical Exam Vital Signs Last Vital Signs Documentation Date Time Temp Pulse Resp B/P Pulse Ox O2 Delivery O2 Flow Rate FiO2 11/03/16 04:00 92 Nasal Cannula 2.0 11/03/16 03:23 36.6 84 18 132/69 Physical Exam Constitutional: Level of Distress: acutely ill Lungs: Auscultation: breath sounds normal, no wheezing, no rales/crackles, no rhonchi Cardiovascular: Heart Auscultation: RRR, no murmurs, no rubs, no gallops Abdomen: Bowel Sounds: pertinent finding (reduced bowel sounds) Inspection & Palpation: soft, distended Extremities: no edema Assessment and Plan Assessment and Plan #1. Atrial fibrillation: She has a history of atrial fibrillation during an acute illness, and she had brief atrial fibrillation here again during an acute presentation. #2. Nonsustained ventricular tachycardia pre op #3 Normal LV function without RWMA #4 Ruptured Appendix with abscess #5 ?? ileus this am If still nauseated change BB to Lopressor 5 IV Q6 Pac's yesterday but no Afib or NSVT Consider KUB No CP or SOB Laboratory Results Last 24 Hours Test 11/03/16 06:24 White Blood Count 18.22 K/uL Red Blood Count 4.38 M/uL Hemoglobin 14.1 g/dL Hematocrit 40.8 % Mean Corpuscular Volume 93.2 fL Mean Corpuscular Hemoglobin 32.2 pg Mean Corpuscular Hemoglobin Concent 34.6 g/dl Platelet Count 184 K/uL Mean Platelet Volume 10.4 fL Neutrophils (%) (Auto) 89.6 % Lymphocytes (%) (Auto) 3.1 % Monocytes (%) (Auto) 6.8 % Eosinophils (%) (Auto) 0.1 % Basophils (%) (Auto) 0.1 % Neutrophils # (Auto) 16.34 K/uL Lymphocytes # (Auto) 0.56 K/uL Monocytes # (Auto) 1.23 K/uL Eosinophils # (Auto) 0.02 K/uL Basophils # (Auto) 0.01 K/uL RDW Standard Deviation 48.0 fL RDW Coefficient of Variation 14.0 % Immature Granulocyte % (Auto) 0.3 % Immature Granulocyte # (Auto) 0.06 K/uL Prothrombin Time 12.7 SECONDS Prothromb Time International Ratio 1.2 Activated Partial Thromboplast Time 31.3 SECONDS Partial Thromboplastin Ratio 1.2 Sodium Level 139 mmol/L Potassium Level 4.3 mmol/L Chloride Level 104 mmol/L Carbon Dioxide Level 26 mmol/L Anion Gap 9.0 mmol/L Blood Urea Nitrogen 13 mg/dl Creatinine 0.64 mg/dl Est Creatinine Clear Calc Drug Dose 66.7 ml/min Estimated GFR () 98.4 Estimated GFR (Non- 84.9 BUN/Creatinine Ratio 20.3 Random Glucose 142 mg/dl Calcium Level 7.9 mg/dl Phosphorus Level 1.9 mg/dl Magnesium Level 1.9 mg/dl Total Bilirubin 0.7 mg/dl Direct Bilirubin 0.2 mg/dl Aspartate Amino Transf (AST/SGOT) 12 U/L Alanine Aminotransferase (ALT/SGPT) 14 U/L Alkaline Phosphatase 78 U/L Total Protein 5.5 gm/dl Albumin 2.3 gm/dl
--- NOTE | 2016-11-03 10:54 | DIAGNOSTIC IMAGING REPORT ---
KUB CLINICAL HISTORY: distended abdomen COMPARISON STUDY: CT scan dated 10/31/2016 FINDINGS: There is a surgical drain projected over the right lower quadrant. There are dilated small bowel loops measuring up to 54 mm in diameter. There is a small amount of colonic gas but the small bowel is dilated out of proportion to the degree of colonic distention. The findings are suggestive of a small bowel obstruction, although given the history of recent surgery a postoperative small bowel ileus cannot be excluded. There is an old left inferior pubic ramus fracture. IMPRESSION: Dilated small bowel loops, possibly representing a small bowel obstruction. Clinical and radiographic follow-up is recommended. Electronically signed by: John Paul Douglass M.D. 11/03/2016 10:53 AM Dictated Date/Time: 11/03/2016 10:50 AM
--- NOTE | 2016-11-03 11:35 | Progress Note ---
Subjective Date of Service: Nov 03, 2016. Subjective Pt evaluation today including: conversation w/ patient, physical exam, chart review, lab review, review of studies, conversation w/ data quality consultant, review of inpatient medication list Nausea and bloating since last night Problem List Medical Problems: (1) Nausea Status: Acute (2) Ruptured appendicitis Status: Acute (3) Systolic hypertension Status: Acute (4) Weakness Status: Acute Review of Systems Constitutional: No chills, No fever Respiratory: No cough, No dyspnea on exertion, No shortness of breath, No sputum, No wheezing Cardiac: No chest pain, No orthopnea Abdomen: + pain, + vomiting, No diarrhea Musculoskeletal: No joint pain, No muscle pain Female : No dysuria, No urinary frequency Psychiatric: No anxiety, No depression symptoms Objective Vital Signs Date Time Temp Pulse Resp B/P Pulse Ox O2 Delivery O2 Flow Rate FiO2 11/03/16 08:00 36.9 76 18 161/77 97 Nasal Cannula 2.0 11/03/16 04:00 92 Nasal Cannula 2.0 11/03/16 03:23 36.6 84 18 132/69 92 Nasal Cannula 2.0 11/03/16 00:01 91 Room Air 11/02/16 23:53 36.8 83 18 146/72 91 Room Air 11/02/16 20:00 91 Room Air 11/02/16 19:00 36.5 88 16 129/68 91 Room Air 11/02/16 16:00 Room Air 11/02/16 15:30 36.6 79 20 138/72 90 Room Air 11/02/16 12:00 Room Air 11/02/16 11:52 36.7 81 18 132/71 92 Room Air Physical Exam General Appearance: WD/WN, + mild distress Neck: supple, no adenopathy Respiratory/Chest: lungs clear, normal breath sounds Cardiovascular: no edema, no gallop Abdomen: + distended, + tenderness Neurologic/Psychiatric: alert, normal mood/affect, oriented x 3 Laboratory Results Last 24 Hours Test 11/03/16 06:24 White Blood Count 18.22 K/uL Red Blood Count 4.38 M/uL Hemoglobin 14.1 g/dL Hematocrit 40.8 % Mean Corpuscular Volume 93.2 fL Mean Corpuscular Hemoglobin 32.2 pg Mean Corpuscular Hemoglobin Concent 34.6 g/dl Platelet Count 184 K/uL Mean Platelet Volume 10.4 fL Neutrophils (%) (Auto) 89.6 % Lymphocytes (%) (Auto) 3.1 % Monocytes (%) (Auto) 6.8 % Eosinophils (%) (Auto) 0.1 % Basophils (%) (Auto) 0.1 % Neutrophils # (Auto) 16.34 K/uL Lymphocytes # (Auto) 0.56 K/uL Monocytes # (Auto) 1.23 K/uL Eosinophils # (Auto) 0.02 K/uL Basophils # (Auto) 0.01 K/uL RDW Standard Deviation 48.0 fL RDW Coefficient of Variation 14.0 % Immature Granulocyte % (Auto) 0.3 % Immature Granulocyte # (Auto) 0.06 K/uL Prothrombin Time 12.7 SECONDS Prothromb Time International Ratio 1.2 Activated Partial Thromboplast Time 31.3 SECONDS Partial Thromboplastin Ratio 1.2 Sodium Level 139 mmol/L Potassium Level 4.3 mmol/L Chloride Level 104 mmol/L Carbon Dioxide Level 26 mmol/L Anion Gap 9.0 mmol/L Blood Urea Nitrogen 13 mg/dl Creatinine 0.64 mg/dl Est Creatinine Clear Calc Drug Dose 66.7 ml/min Estimated GFR () 98.4 Estimated GFR (Non- 84.9 BUN/Creatinine Ratio 20.3 Random Glucose 142 mg/dl Calcium Level 7.9 mg/dl Phosphorus Level 1.9 mg/dl Magnesium Level 1.9 mg/dl Total Bilirubin 0.7 mg/dl Direct Bilirubin 0.2 mg/dl Aspartate Amino Transf (AST/SGOT) 12 U/L Alanine Aminotransferase (ALT/SGPT) 14 U/L Alkaline Phosphatase 78 U/L Total Protein 5.5 gm/dl Albumin 2.3 gm/dl Assessment and Plan Sepsis POA secondary to perforated appendix--the patient's presenting symptoms were that of abdominal pain, but due to the presence of symptomatic V. tach, she was first stabilized on amiodarone drip, and then CT of the abdomen and pelvis was performed, which revealed perforated appendix. She was then started on Cipro 500 mg IV twice a day and Flagyl 500 mg IV every 8 hours, with a known penicillin allergy. Surgical consult with Dr. Patel. STAT ECHO completed determined hyperdynamic LV function, no WMA, underwent open appendectomy on with drain placed. Kept NPO, as pt developed abd pain, bloating, N/V 11/03. KUB determined SBO. NGT placed. Symptomatic V. tach--the patient was given serial amiodarone IV boluses of 150 mg 2, and then started on amiodarone drip with good response and heart rate and blood pressure control while in the emergency department. DCed of amio and toleratinfg metoprolol. Appreciate cardiology recs Hypercholesterolemia--hold Zetia 10 mg by mouth daily. Depression--hold Cymbalta. Arthritis--hold Celebrex.
--- NOTE | 2016-11-03 12:02 | DIAGNOSTIC IMAGING REPORT ---
KUB CLINICAL HISTORY: Bowel obstruction. Nasogastric tube placement COMPARISON STUDY: 11/03/2016 FINDINGS: There is been interval placement of a nasogastric tube which is positioned within the stomach. There is persistent small bowel dilatation. There is a right lower quadrant surgical drain. IMPRESSION: 1. Persistent small bowel dilatation 2. Interval placement of nasogastric tube with its tip in the stomach Electronically signed by: John Paul Douglass M.D. 11/03/2016 12:01 PM Dictated Date/Time: 11/03/2016 12:00 PM
--- NOTE | 2016-11-03 12:06 | Surgery Progress Note ---
Surgery Progress Note Date of Service Nov 03, 2016. Subjective Post OP Day: 2 Nausea and vomiting causing ng placement this morning. Feels better (400 cc drained). No flatus or bowel activity yet (very tiny bowel movement this morning ). Did walk yesterday with PT. Pain is controlled. Objective Vital Signs: Date Time Temp Pulse Resp B/P Pulse Ox O2 Delivery O2 Flow Rate FiO2 11/03/16 08:00 36.9 76 18 161/77 97 Nasal Cannula 2.0 11/03/16 04:00 92 Nasal Cannula 2.0 11/03/16 03:23 36.6 84 18 132/69 92 Nasal Cannula 2.0 11/03/16 00:01 91 Room Air 11/02/16 23:53 36.8 83 18 146/72 91 Room Air 11/02/16 20:00 91 Room Air 11/02/16 19:00 36.5 88 16 129/68 91 Room Air 11/02/16 16:00 Room Air 11/02/16 15:30 36.6 79 20 138/72 90 Room Air General Appearance: WD/WN, no apparent distress Head: normocephalic, atraumatic Respiratory/Chest: normal breath sounds, no respiratory distress, no accessory muscle use Cardiovascular: regular rate, rhythm Abdomen: soft, + abnormal bowel sounds (hypoactive), + distended (mild), + tenderness (mild at incision) Incision(s): clean, dry, intact, findings (caleb in place, BERHANE serosanguinous) Laboratory Results: Results Past 24 Hours Test 11/03/16 06:24 Range/Units White Blood Count 18.22 4.8-10.8 K/uL Red Blood Count 4.38 4.2-5.4 M/uL Hemoglobin 14.1 12.0-16.0 g/dL Hematocrit 40.8 37-47 % Mean Corpuscular Volume 93.2 80-100 fL Mean Corpuscular Hemoglobin 32.2 25-34 pg Mean Corpuscular Hemoglobin Concent 34.6 32-36 g/dl Platelet Count 184 130-400 K/uL Mean Platelet Volume 10.4 7.4-10.4 fL Neutrophils (%) (Auto) 89.6 % Lymphocytes (%) (Auto) 3.1 % Monocytes (%) (Auto) 6.8 % Eosinophils (%) (Auto) 0.1 % Basophils (%) (Auto) 0.1 % Neutrophils # (Auto) 16.34 1.4-6.5 K/uL Lymphocytes # (Auto) 0.56 1.2-3.4 K/uL Monocytes # (Auto) 1.23 0.11-0.59 K/uL Eosinophils # (Auto) 0.02 0-0.5 K/uL Basophils # (Auto) 0.01 0-0.2 K/uL RDW Standard Deviation 48.0 36.4-46.3 fL RDW Coefficient of Variation 14.0 11.5-14.5 % Immature Granulocyte % (Auto) 0.3 % Immature Granulocyte # (Auto) 0.06 0.00-0.02 K/uL Prothrombin Time 12.7 9.0-12.0 SECONDS Prothromb Time International Ratio 1.2 0.9-1.1 Activated Partial Thromboplast Time 31.3 21.0-31.0 SECONDS Partial Thromboplastin Ratio 1.2 Sodium Level 139 136-145 mmol/L Potassium Level 4.3 3.5-5.1 mmol/L Chloride Level 104 98-107 mmol/L Carbon Dioxide Level 26 21-32 mmol/L Anion Gap 9.0 3-11 mmol/L Blood Urea Nitrogen 13 7-18 mg/dl Creatinine 0.64 0.60-1.20 mg/dl Est Creatinine Clear Calc Drug Dose 66.7 ml/min Estimated GFR () 98.4 Estimated GFR (Non- 84.9 BUN/Creatinine Ratio 20.3 10-20 Random Glucose 142 70-99 mg/dl Calcium Level 7.9 8.5-10.1 mg/dl Phosphorus Level 1.9 2.5-4.9 mg/dl Magnesium Level 1.9 1.8-2.4 mg/dl Total Bilirubin 0.7 0.2-1 mg/dl Direct Bilirubin 0.2 0-0.2 mg/dl Aspartate Amino Transf (AST/SGOT) 12 15-37 U/L Alanine Aminotransferase (ALT/SGPT) 14 12-78 U/L Alkaline Phosphatase 78 45-117 U/L Total Protein 5.5 6.4-8.2 gm/dl Albumin 2.3 3.4-5.0 gm/dl Assessment & Plan POD#2 from open appendectomy for necrotic appendicitis. Ileus - agree with ngt, npo for now until return of bowel function. Increase activity. Continue antibiotics.
[2016-11-03] MEDS: METOPROLOL TARTRATE 1 MG/ML VIAL IV. SCH ×3 (12:15→23:50)
[2016-11-03] MEDS: MoRPHine SULFATE 2 MG/ML CARP IV PRN (20:38)
[2016-11-03] MEDS: CIPROFLOXACIN / D5W 400 MG in PREMIXED IN D5W 200 ML IV SCH (20:39)
[2016-11-03] MEDS: DULOXETINE HCL 20 MG CAP PO SCH (20:39)
[2016-11-04] MEDS ORDERED: NURSING DECISION MEDICATION ORDER SCH
[2016-11-04 03:13] VITALS: BP 156/76; PULSE 96; TEMP 37.2; O2SAT 93
[2016-11-04] MEDS: NSS + 20MEQ KCL 1000ML 1,000 ML IV SCH ×3 (04:11→21:39)
[2016-11-04] MEDS: METOPROLOL TARTRATE 1 MG/ML VIAL IV. SCH ×4 (05:53→23:44)
[2016-11-04 06:37] LABS: BASO % 0.2 %; BASO ABS # 0.03 K/uL (0-0.2); COMPLETE YES; IG% 0.5 %; LYMPH % 7.2 %; LYMPH ABS # 1.23 K/uL (1.2-3.4); MEAN CELL VOLUME 96.1 fL (80-100); MEAN CORPUSCULAR HEMOGLOBIN 32.3 pg (25-34); MEAN CORPUSCULAR HGB CONC 33.6 g/dl (32-36); MEAN PLATELET VOLUME 9.8 fL (7.4-10.4); MONO % 8.6 %; NEUT % 82.5 %; PLATELET COUNT 212 K/uL (130-400); RED BLOOD COUNT 4.06 M/uL (4.2-5.4); WHITE BLOOD COUNT 17.08 K/uL (4.8-10.8)
[2016-11-04 06:44] LABS: INR 1.2 (0.9-1.1); PARTIAL THROMBOPLASTIN RATIO 1.2; PROTHROMBIN TIME (PATIENT) 12.9 SECONDS (9.0-12.0)
[2016-11-04 07:01] LABS: BUN/CREATININE RATIO 29.6 (10-20); CALCIUM 7.9 mg/dl (8.5-10.1); CREATININE 0.47 mg/dl (0.60-1.20); MAGNESIUM 1.7 mg/dl (1.8-2.4)
[2016-11-04 07:14] VITALS: BP 168/81; PULSE 86; TEMP 36.4; O2SAT 90
[2016-11-04] MEDS: ASPIRIN 81 MG ECTAB PO SCH (08:27)
[2016-11-04] MEDS: DOCUSATE SODIUM 100 MG CAP PO SCH ×2 (08:27→19:31)
[2016-11-04] MEDS: AMLODIPINE BESYLATE 5 MG TAB PO SCH (08:27)
[2016-11-04] MEDS: EZETIMIBE 10MG TAB PO SCH (08:27)
[2016-11-04] MEDS: CIPROFLOXACIN / D5W 400 MG in PREMIXED IN D5W 200 ML IV SCH (08:28)
[2016-11-04] MEDS: PANTOprazole INJ 40 MG in SYRINGE 0 ML IV SCH (08:28)
[2016-11-04] MEDS: METRONIDAZOLE / NSS 500 MG in PREMIXED NSS 100 ML IV SCH (08:28)
[2016-11-04] MEDS: HEPARIN SOD 5000 UNIT/0.5 ML CARP SQ SCH ×2 (08:52→20:24)
[2016-11-04] MEDS ORDERED: SODIUM PHOSPHATE 3 MMOL/1 ML INFUSION IV STA (09:47)
--- NOTE | 2016-11-04 09:53 | Surgery Progress Note ---
Surgery Progress Note Date of Service Nov 04, 2016. Subjective Feels better after ng placement. Xray showed small bowel dilation. Passing small amounts of flatus and had a small stool but still feels distended. Not hungry. No nausea. Objective Vital Signs: Date Time Temp Pulse Resp B/P Pulse Ox O2 Delivery O2 Flow Rate FiO2 11/04/16 07:14 36.4 86 18 168/81 90 Room Air 11/04/16 05:53 94 182/70 11/04/16 04:00 Room Air 11/04/16 03:13 37.2 96 18 156/76 93 Nasal Cannula 3.0 11/03/16 23:59 Room Air 11/03/16 23:50 90 154/83 11/03/16 23:24 37.3 95 18 154/73 91 Room Air 11/03/16 20:00 Room Air 11/03/16 19:37 37.3 82 18 152/74 91 Room Air 11/03/16 17:44 75 144/76 11/03/16 16:00 Room Air 11/03/16 15:45 36.8 75 16 144/76 91 Room Air 11/03/16 12:24 36.7 80 133/73 91 11/03/16 12:15 76 161/77 11/03/16 12:00 Room Air Physical Exam: Telly drainage (20/ 5 cc serosanguinous), nasogastric drainage ( 650/140 cc) General Appearance: WD/WN, no apparent distress Neck: supple, trachea midline Respiratory/Chest: lungs clear, normal breath sounds, no respiratory distress, no accessory muscle use Cardiovascular: regular rate, rhythm, no JVD Abdomen: non tender, soft, + abnormal bowel sounds (quiet), + distended (mild) Incision(s): clean, dry, intact Extremities: no pedal edema Laboratory Results: Results Past 24 Hours Test 11/04/16 06:21 Range/Units White Blood Count 17.08 4.8-10.8 K/uL Red Blood Count 4.06 4.2-5.4 M/uL Hemoglobin 13.1 12.0-16.0 g/dL Hematocrit 39.0 37-47 % Mean Corpuscular Volume 96.1 80-100 fL Mean Corpuscular Hemoglobin 32.3 25-34 pg Mean Corpuscular Hemoglobin Concent 33.6 32-36 g/dl Platelet Count 212 130-400 K/uL Mean Platelet Volume 9.8 7.4-10.4 fL Neutrophils (%) (Auto) 82.5 % Lymphocytes (%) (Auto) 7.2 % Monocytes (%) (Auto) 8.6 % Eosinophils (%) (Auto) 1.0 % Basophils (%) (Auto) 0.2 % Neutrophils # (Auto) 14.10 1.4-6.5 K/uL Lymphocytes # (Auto) 1.23 1.2-3.4 K/uL Monocytes # (Auto) 1.47 0.11-0.59 K/uL Eosinophils # (Auto) 0.17 0-0.5 K/uL Basophils # (Auto) 0.03 0-0.2 K/uL RDW Standard Deviation 50.5 36.4-46.3 fL RDW Coefficient of Variation 14.2 11.5-14.5 % Immature Granulocyte % (Auto) 0.5 % Immature Granulocyte # (Auto) 0.08 0.00-0.02 K/uL Prothrombin Time 12.9 9.0-12.0 SECONDS Prothromb Time International Ratio 1.2 0.9-1.1 Activated Partial Thromboplast Time 30.8 21.0-31.0 SECONDS Partial Thromboplastin Ratio 1.2 Sodium Level 137 136-145 mmol/L Potassium Level 4.0 3.5-5.1 mmol/L Chloride Level 104 98-107 mmol/L Carbon Dioxide Level 27 21-32 mmol/L Anion Gap 6.0 3-11 mmol/L Blood Urea Nitrogen 14 7-18 mg/dl Creatinine 0.47 0.60-1.20 mg/dl Est Creatinine Clear Calc Drug Dose 90.8 ml/min Estimated GFR () 108.9 Estimated GFR (Non- 93.9 BUN/Creatinine Ratio 29.6 10-20 Random Glucose 116 70-99 mg/dl Calcium Level 7.9 8.5-10.1 mg/dl Phosphorus Level 2.0 2.5-4.9 mg/dl Magnesium Level 1.7 1.8-2.4 mg/dl Total Bilirubin 0.7 0.2-1 mg/dl Direct Bilirubin 0.2 0-0.2 mg/dl Aspartate Amino Transf (AST/SGOT) 14 15-37 U/L Alanine Aminotransferase (ALT/SGPT) 13 12-78 U/L Alkaline Phosphatase 59 45-117 U/L Total Protein 5.3 6.4-8.2 gm/dl Albumin 2.2 3.4-5.0 gm/dl Assessment & Plan POD#3 from open appendectomy for necrotic appendicitis. Ileus appears to be slowly resolving. Discussed option of removing ng today vs keeping for 1 more day. She is willing to try and keep until tomorrow as her distention is improving. Increase activity. Continue antibiotics.
[2016-11-04] MEDS ORDERED: MAGNESIUM SULFATE 1GM / D5W 1 GM in PREMIXED IN D5W 100 ML IV ONE (10:00)
[2016-11-04] MEDS ORDERED: SODIUM PHOSPHATE INJ 30 MMOL in SODIUM CHLORIDE 0.9% 500ML 500 ML IV SCH (10:15)
--- NOTE | 2016-11-04 10:31 | Progress Note ---
Subjective Date of Service: Nov 04, 2016. Subjective Pt evaluation today including: conversation w/ patient, physical exam, chart review, lab review, review of studies, review of inpatient medication list Pt reports less nausea and abd pain Resting comfortably in bed Tolerating NG tube at this time Problem List Medical Problems: (1) Nausea Status: Acute (2) Ruptured appendicitis Status: Acute (3) Systolic hypertension Status: Acute (4) Weakness Status: Acute Review of Systems Constitutional: No chills, No fever Respiratory: No cough, No dyspnea on exertion, No shortness of breath, No sputum, No wheezing Cardiac: No chest pain, No orthopnea Abdomen: No constipation, No diarrhea, No nausea, No pain, No vomiting Musculoskeletal: No joint pain, No muscle pain Female : No dysuria, No urinary frequency Psychiatric: No anhedonism, No depression symptoms Objective Vital Signs Date Time Temp Pulse Resp B/P Pulse Ox O2 Delivery O2 Flow Rate FiO2 11/04/16 07:14 36.4 86 18 168/81 90 Room Air 11/04/16 05:53 94 182/70 11/04/16 04:00 Room Air 11/04/16 03:13 37.2 96 18 156/76 93 Nasal Cannula 3.0 11/03/16 23:59 Room Air 11/03/16 23:50 90 154/83 11/03/16 23:24 37.3 95 18 154/73 91 Room Air 11/03/16 20:00 Room Air 11/03/16 19:37 37.3 82 18 152/74 91 Room Air 11/03/16 17:44 75 144/76 11/03/16 16:00 Room Air 11/03/16 15:45 36.8 75 16 144/76 91 Room Air 11/03/16 12:24 36.7 80 133/73 91 11/03/16 12:15 76 161/77 11/03/16 12:00 Room Air Physical Exam General Appearance: WD/WN, no apparent distress Neck: supple, no adenopathy Respiratory/Chest: lungs clear, normal breath sounds Cardiovascular: no edema, no gallop Abdomen: non tender, soft Neurologic/Psychiatric: alert, normal mood/affect, oriented x 3 Laboratory Results Last 24 Hours Test 11/04/16 06:21 White Blood Count 17.08 K/uL Red Blood Count 4.06 M/uL Hemoglobin 13.1 g/dL Hematocrit 39.0 % Mean Corpuscular Volume 96.1 fL Mean Corpuscular Hemoglobin 32.3 pg Mean Corpuscular Hemoglobin Concent 33.6 g/dl Platelet Count 212 K/uL Mean Platelet Volume 9.8 fL Neutrophils (%) (Auto) 82.5 % Lymphocytes (%) (Auto) 7.2 % Monocytes (%) (Auto) 8.6 % Eosinophils (%) (Auto) 1.0 % Basophils (%) (Auto) 0.2 % Neutrophils # (Auto) 14.10 K/uL Lymphocytes # (Auto) 1.23 K/uL Monocytes # (Auto) 1.47 K/uL Eosinophils # (Auto) 0.17 K/uL Basophils # (Auto) 0.03 K/uL RDW Standard Deviation 50.5 fL RDW Coefficient of Variation 14.2 % Immature Granulocyte % (Auto) 0.5 % Immature Granulocyte # (Auto) 0.08 K/uL Prothrombin Time 12.9 SECONDS Prothromb Time International Ratio 1.2 Activated Partial Thromboplast Time 30.8 SECONDS Partial Thromboplastin Ratio 1.2 Sodium Level 137 mmol/L Potassium Level 4.0 mmol/L Chloride Level 104 mmol/L Carbon Dioxide Level 27 mmol/L Anion Gap 6.0 mmol/L Blood Urea Nitrogen 14 mg/dl Creatinine 0.47 mg/dl Est Creatinine Clear Calc Drug Dose 90.8 ml/min Estimated GFR () 108.9 Estimated GFR (Non- 93.9 BUN/Creatinine Ratio 29.6 Random Glucose 116 mg/dl Calcium Level 7.9 mg/dl Phosphorus Level 2.0 mg/dl Magnesium Level 1.7 mg/dl Total Bilirubin 0.7 mg/dl Direct Bilirubin 0.2 mg/dl Aspartate Amino Transf (AST/SGOT) 14 U/L Alanine Aminotransferase (ALT/SGPT) 13 U/L Alkaline Phosphatase 59 U/L Total Protein 5.3 gm/dl Albumin 2.2 gm/dl Assessment and Plan Sepsis POA secondary to perforated appendix--the patient's presenting symptoms were that of abdominal pain, but due to the presence of symptomatic V. tach, she was first stabilized on amiodarone drip, and then CT of the abdomen and pelvis was performed, which revealed perforated appendix. She was then started on Cipro 500 mg IV twice a day and Flagyl 500 mg IV every 8 hours, with a known penicillin allergy. Surgical consult with Dr. Patel. For cardiac clearance STAT ECHO was completed which determined hyperdynamic LV function, no WMA. Pt underwent open appendectomy on 11/01 with drain placed. Pt placed NPO, as pt developed abd pain, bloating, N/V on 11/03. KUB determined SBO. NGT placed. Symptomatic V. tach--the patient was given serial amiodarone IV boluses of 150 mg 2, and then started on amiodarone drip with good response and heart rate and blood pressure control while in the emergency department. DCed amio drip on and started on IV metoprolol. Appreciate cardiology recs. Can convert to PO metoprolol once tolerating PO Hypomagnesemia/hypophosphatemia - Replace PRN Hypercholesterolemia--hold Zetia 10 mg by mouth daily. Depression--hold Cymbalta. Arthritis--hold Celebrex.
--- NOTE | 2016-11-04 10:55 | Cardiology Follow-Up ---
Subjective General Date of Service: Nov 04, 2016. Pt evaluation today including: conversation w/ patient, chart review, lab review, review of studies History of Present Illness The patient is a 81 year old female Allergies Coded Allergies: Penicillins (Verified Allergy, Mild, RASH, 10/30/16) Amoxicillin (Verified Allergy, Unknown, RASH, 10/30/16) Social History Smoking Status: Never Smoker Hx Tobacco Use In Past Year?: No Hx Alcohol Use - Type And Amou: No Hx Substance Use - Type And Am: No Problem List Medical Problems: (1) Nausea Status: Acute (2) Ruptured appendicitis Status: Acute (3) Systolic hypertension Status: Acute (4) Weakness Status: Acute Review of Systems Respiratory: No cough, No dyspnea at rest, No shortness of breath Cardiac: No chest pain, No edema, No palpitations Additional ROS Details: Improved belly pain, no nausea, no NEWSOME this am to toilet Physical Exam Vital Signs Last Vital Signs Documentation Date Time Temp Pulse Resp B/P Pulse Ox O2 Delivery O2 Flow Rate FiO2 11/04/16 07:14 36.4 86 18 168/81 90 Room Air 11/04/16 03:13 3.0 Physical Exam Constitutional: Level of Distress: acutely ill Lungs: Auscultation: breath sounds normal, no wheezing, no rales/crackles, no rhonchi Cardiovascular: Heart Auscultation: RRR, no murmurs, no rubs, no gallops Abdomen: Bowel Sounds: pertinent finding ( bowel sounds better) Inspection & Palpation: soft Extremities: no edema Assessment and Plan Assessment and Plan #1. Atrial fibrillation: She has a history of atrial fibrillation during an acute illness, and she had brief atrial fibrillation here again during an acute presentation. Brief periods of PAF last 24 hours #2. Nonsustained ventricular tachycardia pre op #3 Normal LV function without RWMA #4 Ruptured Appendix with abscess #5 ileus Increase Lopressor to 7.5 IV Q6 No CP or SOB but up 4 liters, if any SOB then lasix 20mg IV x1 Replete K+, Mg, PO4 Laboratory Results Last 24 Hours Test 11/04/16 06:21 White Blood Count 17.08 K/uL Red Blood Count 4.06 M/uL Hemoglobin 13.1 g/dL Hematocrit 39.0 % Mean Corpuscular Volume 96.1 fL Mean Corpuscular Hemoglobin 32.3 pg Mean Corpuscular Hemoglobin Concent 33.6 g/dl Platelet Count 212 K/uL Mean Platelet Volume 9.8 fL Neutrophils (%) (Auto) 82.5 % Lymphocytes (%) (Auto) 7.2 % Monocytes (%) (Auto) 8.6 % Eosinophils (%) (Auto) 1.0 % Basophils (%) (Auto) 0.2 % Neutrophils # (Auto) 14.10 K/uL Lymphocytes # (Auto) 1.23 K/uL Monocytes # (Auto) 1.47 K/uL Eosinophils # (Auto) 0.17 K/uL Basophils # (Auto) 0.03 K/uL RDW Standard Deviation 50.5 fL RDW Coefficient of Variation 14.2 % Immature Granulocyte % (Auto) 0.5 % Immature Granulocyte # (Auto) 0.08 K/uL Prothrombin Time 12.9 SECONDS Prothromb Time International Ratio 1.2 Activated Partial Thromboplast Time 30.8 SECONDS Partial Thromboplastin Ratio 1.2 Sodium Level 137 mmol/L Potassium Level 4.0 mmol/L Chloride Level 104 mmol/L Carbon Dioxide Level 27 mmol/L Anion Gap 6.0 mmol/L Blood Urea Nitrogen 14 mg/dl Creatinine 0.47 mg/dl Est Creatinine Clear Calc Drug Dose 90.8 ml/min Estimated GFR () 108.9 Estimated GFR (Non- 93.9 BUN/Creatinine Ratio 29.6 Random Glucose 116 mg/dl Calcium Level 7.9 mg/dl Phosphorus Level 2.0 mg/dl Magnesium Level 1.7 mg/dl Total Bilirubin 0.7 mg/dl Direct Bilirubin 0.2 mg/dl Aspartate Amino Transf (AST/SGOT) 14 U/L Alanine Aminotransferase (ALT/SGPT) 13 U/L Alkaline Phosphatase 59 U/L Total Protein 5.3 gm/dl Albumin 2.2 gm/dl
[2016-11-04 11:48] VITALS: BP 161/77; PULSE 97; TEMP 37.3; O2SAT 91
[2016-11-04 14:45] VITALS: BP 148/78; PULSE 85; TEMP 36.6; O2SAT 94
[2016-11-04] MEDS ORDERED: NURSING VERBAL MED ORDER ONE (16:15)
[2016-11-04 19:11] VITALS: BP 173/80; PULSE 80; TEMP 36.5; O2SAT 93
[2016-11-04] MEDS: DULOXETINE HCL 20 MG CAP PO SCH (19:31)
[2016-11-04] MEDS ORDERED: HydrALAZINE HCL 20 MG/ML VIAL IV. PRN (20:15)
[2016-11-04] MEDS ORDERED: HydrALAZINE HCL 20 MG/ML VIAL ONE (20:29)
[2016-11-04 23:40] VITALS: BP 135/58; PULSE 98; TEMP 37; O2SAT 94
[2016-11-04] MEDS: LORAZEPAM 2 MG/ML 1 ML VIAL IV PRN ×2 (23:43)
[2016-11-05] MEDS: DILTIAZEM HCL 5 MG/ML 5 ML VIAL ONE ×2 (02:29→02:36)
[2016-11-05 03:20] VITALS: BP 154/77; PULSE 91; TEMP 36.7; O2SAT 94
[2016-11-05] MEDS: METOPROLOL TARTRATE 1 MG/ML VIAL IV. SCH ×3 (06:09→18:04)
[2016-11-05] MEDS: NSS + 20MEQ KCL 1000ML 1,000 ML IV SCH (06:33)
[2016-11-05 06:42] LABS: BASO % 0.2 %; BASO ABS # 0.03 K/uL (0-0.2); COMPLETE YES; EOS % 0.6 %; HEMATOCRIT 36.2 % (37-47); IG% 0.5 %; LYMPH % 10.6 %; LYMPH ABS # 1.49 K/uL (1.2-3.4); MEAN CELL VOLUME 94.5 fL (80-100); MEAN CORPUSCULAR HEMOGLOBIN 31.9 pg (25-34); MEAN CORPUSCULAR HGB CONC 33.7 g/dl (32-36); MEAN PLATELET VOLUME 9.3 fL (7.4-10.4); MONO % 10.5 %; NEUT % 77.6 %; PLATELET COUNT 212 K/uL (130-400); RED BLOOD COUNT 3.83 M/uL (4.2-5.4); WHITE BLOOD COUNT 14.09 K/uL (4.8-10.8)
[2016-11-05 06:58] LABS: INR 1.2 (0.9-1.1); PARTIAL THROMBOPLASTIN RATIO 1.1; PROTHROMBIN TIME (PATIENT) 12.7 SECONDS (9.0-12.0)
[2016-11-05] MEDS ORDERED: FUROSEMIDE INJ 10 MG in SYRINGE 0 ML IV ONE (07:00)
[2016-11-05 07:13] LABS: BUN/CREATININE RATIO 32.1 (10-20); CALCIUM 7.8 mg/dl (8.5-10.1); CREATININE 0.39 mg/dl (0.60-1.20); MAGNESIUM 1.9 mg/dl (1.8-2.4); POTASSIUM 3.7 mmol/L (3.5-5.1)
[2016-11-05 07:16] VITALS: BP 145/67; PULSE 80; TEMP 36.7; O2SAT 94
[2016-11-05 07:16] LABS: PHOSPHORUS 2.5 mg/dl (2.5-4.9)
[2016-11-05] MEDS: METRONIDAZOLE / NSS 500 MG in PREMIXED NSS 100 ML IV SCH ×3 (07:19→21:32)
[2016-11-05] MEDS: DOCUSATE SODIUM 100 MG CAP PO SCH ×2 (07:26→21:32)
[2016-11-05] MEDS: ASPIRIN 81 MG ECTAB PO SCH (07:27)
[2016-11-05] MEDS: EZETIMIBE 10MG TAB PO SCH (07:27)
[2016-11-05] MEDS: AMLODIPINE BESYLATE 5 MG TAB PO SCH (07:27)
[2016-11-05] MEDS: PANTOprazole INJ 40 MG in SYRINGE 0 ML IV SCH (07:28)
--- NOTE | 2016-11-05 08:17 | SURGERY PROGRESS NOTE ---
DATE: 11/05/2016 HISTORY OF PRESENT ILLNESS: Lucinda is 4th postoperative day status post an open appendectomy for a perforated gangrenous appendix. She required NG tube placement a few days ago for likely postoperative ileus that would normally developed after such a significant pathology. Yesterday I have noted the antibiotics were discontinued on the . I checked with pharmacy apparently was put on postoperatively as a postop antibiotic and automatically triggers off discontinue it. Having said that, Lucinda feels pretty good this morning and she says she is starting to pass some flatus. Her NG tube is still in place. PHYSICAL EXAMINATION: Her last vitals showed a temperature of 36.7, a pulse 92, respirations 18, blood pressure 168/72. I\T\O, she is slightly positive at about 4 liters or so. The NG drainage had been only about 50 mL. The Telly drainage is only 10. It is serous, slightly sanguineous, and nonpurulent. The abdomen is soft, with slightly a fluid wave. The right lower quadrant incision, the subcutaneous drain was removed, and there is slight cellulitis along the incision, but no real signs of infection and this may be related to the sutures itself. LABORATORY DATA: The lab this morning is pending. ASSESSMENT AND PLAN: At this point, we will reinstitute antibiotic therapy since yesterday her white count was still 17,000 with a significant left shift. I will cut her IVs back to about 50 mL an hour, give her a touch of Lasix, discontinue the NG tube, and start her activity and also discontinue the Villagran. But overall, she is progressing as one would expect from such significant pathology. OLAF
[2016-11-05] MEDS: CIPROFLOXACIN / D5W 400 MG in PREMIXED IN D5W 200 ML IV SCH ×2 (08:38→21:32)
[2016-11-05] MEDS: HEPARIN SOD 5000 UNIT/0.5 ML CARP SQ SCH ×2 (08:49→22:40)
--- NOTE | 2016-11-05 10:26 | Cardiology Follow-Up ---
Subjective Date of Service: Nov 05, 2016. Pt evaluation today including: conversation w/ patient, physical exam, lab review, review of studies, review of inpatient medication list, conversation w/ attending History of Present Illness This is a very pleasant 81-year-old woman who has a history of rapid atrial fibrillation which was identified when she presented with an acute illness on . She had normal left ventricular function at the time, she had a 3 day hospitalization and other than her initial presentation after which she converted to normal rhythm she had no further atrial fibrillation. She did have low-grade enzymes and mild congestive heart failure at that time. Subsequently it is unclear that she had any symptoms or documentation of an atrial arrhythmia until presentation here on 10/31/2016. She presented with weakness and abdominal discomfort, in the emergency room was noted to have bradycardia with frequent premature ventricular beats and short runs of nonsustained ventricular tachycardia as well as brief periods of paroxysmal atrial fibrillation. She was briefly on IV amiodarone. She went to surgery for a ruptured appendix She cannot describe symptoms of palpitations, chest discomfort, etc. leading up to or following her admission this visit. An echocardiogram done 10/31/2016 showed mild left ventricular hypertrophy, a hyperdynamic left ventricle with an ejection fraction of 70%. Cardiac enzymes have been negative. This morning she went back into atrial fibrillation, this was identified on telemetry but she was unaware of it. On further discussion with her however she has observed a rapid heart rate when she takes her blood pressure from time to time at home, she can't give me specific as to how often but apparently it is relatively frequent. She had not told us about this before but that is consistent with having atrial fibrillation at home. Social History Smoking Status: Never Smoker History of Alcohol Use: No Review of Systems Respiratory: No cough, No dyspnea on exertion, No shortness of breath, No wheezing Cardiac: + see HPI, No PND, No chest pain, No edema, No orthopnea, No palpitations Medications Cardiovascular: Item Value Date Time Hydralazine HCl 10 mg 11/04/162014 (HydrALAZINE INJ) Q4H PRN/IV. 11/04/162029 Metoprolol 7.5 mg 11/04/16 1200 Tartrate Q6/IV. 11/05/16 0609 (Lopressor Iv) Amlodipine 5 mg 11/03/16 0900 Besylate DAILY/PO (Norvasc Tab) EZETIMIBE 10 mg 11/03/16 0900 (Zetia Tab) QAM/PO Aspirin 81 mg 11/01/16 0900 (Ecotrin Tab) QAM/PO Objective Vital Signs Past 12 Hours Date Time Temp Pulse Resp B/P Pulse Ox O2 Delivery O2 Flow Rate FiO2 11/05/16 08:00 Nasal Cannula 2.0 11/05/16 07:16 36.7 80 18 145/67 94 Room Air 11/05/16 06:09 92 168/72 11/05/16 04:00 Room Air 11/05/16 03:20 36.7 91 18 154/77 94 Nasal Cannula 2.0 11/04/16 23:59 Room Air 11/04/16 23:44 98 11/04/16 23:40 37.0 98 18 135/58 94 Nasal Cannula 2.0 Last Recorded Weight-Kilograms: 72.100 Intake & Output 8-Hour Column 11/04/16 11/04/16 11/05/16 15:59 23:59 07:59 Intake Total 1111 ml 618 ml 570 ml Output Total 525 ml 750 ml 410 ml Balance 586 ml -132 ml 160 ml 24-Hour Column 11/05/16 07:59 Intake Total 2299 ml Output Total 1685 ml Balance 614 ml Physical Exam Constitutional: General Apperance: heathly-appearing Level of Distress: NAD Lungs: Respiratory effort: no dyspnea, good air movement Auscultation: breath sounds normal, no wheezing Cardiovascular: Heart Auscultation: no murmurs, no rubs, no gallops, tachycardia, irregular rate rhythm Peripheral Pulses: Bruits: none appreciated Extremities: no edema Data Laboratory Results: Last 24 Hours Test 11/05/16 06:22 White Blood Count 14.09 K/uL Red Blood Count 3.83 M/uL Hemoglobin 12.2 g/dL Hematocrit 36.2 % Mean Corpuscular Volume 94.5 fL Mean Corpuscular Hemoglobin 31.9 pg Mean Corpuscular Hemoglobin Concent 33.7 g/dl Platelet Count 212 K/uL Mean Platelet Volume 9.3 fL Neutrophils (%) (Auto) 77.6 % Lymphocytes (%) (Auto) 10.6 % Monocytes (%) (Auto) 10.5 % Eosinophils (%) (Auto) 0.6 % Basophils (%) (Auto) 0.2 % Neutrophils # (Auto) 10.93 K/uL Lymphocytes # (Auto) 1.49 K/uL Monocytes # (Auto) 1.48 K/uL Eosinophils # (Auto) 0.09 K/uL Basophils # (Auto) 0.03 K/uL RDW Standard Deviation 49.7 fL RDW Coefficient of Variation 14.5 % Immature Granulocyte % (Auto) 0.5 % Immature Granulocyte # (Auto) 0.07 K/uL Prothrombin Time 12.7 SECONDS Prothromb Time International Ratio 1.2 Activated Partial Thromboplast Time 29.2 SECONDS Partial Thromboplastin Ratio 1.1 Sodium Level 139 mmol/L Potassium Level 3.7 mmol/L Chloride Level 105 mmol/L Carbon Dioxide Level 27 mmol/L Anion Gap 7.0 mmol/L Blood Urea Nitrogen 13 mg/dl Creatinine 0.39 mg/dl Est Creatinine Clear Calc Drug Dose 118.9 ml/min Estimated GFR () 115.8 Estimated GFR (Non- 99.9 BUN/Creatinine Ratio 32.1 Random Glucose 100 mg/dl Calcium Level 7.8 mg/dl Phosphorus Level 2.5 mg/dl Magnesium Level 1.9 mg/dl Total Bilirubin 0.6 mg/dl Direct Bilirubin 0.2 mg/dl Aspartate Amino Transf (AST/SGOT) 25 U/L Alanine Aminotransferase (ALT/SGPT) 17 U/L Alkaline Phosphatase 58 U/L Total Protein 5.1 gm/dl Albumin 2.1 gm/dl Telemetry reviewed: Onset of atrial fibrillation with a rapid ventricular response this morning, sinus rhythm prior to that Assessment and Plan #1. Atrial fibrillation: She has a history of atrial fibrillation during an acute illness, and she had brief atrial fibrillation here again during an acute presentation. I suspect this represents a more frequent arrhythmia than these brief episodes when she is acutely ill, especially in view of her now recalling that she detects a rapid heart rate on her automatic blood pressure machine with some frequency. 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 If we can't adequately control the rate we can consider rhythm control. I am going to add calcium blockade to her beta mayra, I think she can take oral now since she is on clear liquids. We also need to consider anticoagulation and I would add one of the oral agents if possible (I prefer Zetia). I would anticipate that she needs long-term anticoagulant therapy. #2. Nonsustained ventricular tachycardia: She had runs of premature ventricular beats and brief nonsustained ventricular tachycardia, seemingly monomorphic, on admission. These were in association of her acute illness on presentation, and may not represent an ongoing problem. She has had no further events. For now I would just use the beta mayra and did not investigate any further. #3. Hypertension: At home she was on amlodipine as well as metoprolol, here on intravenous metoprolol her blood pressure is somewhat elevated and she is on hydralazine. My approach would be to switch her amlodipine to diltiazem to help with rate control and continue beta-blockade. If blood pressure still an issue we can add some other agent and later date but we may need higher doses of beta blockade and calcium blockade to achieve rate control. Thank you for allowing me to participate in her care.
[2016-11-05 11:09] VITALS: BP 104/69; PULSE 130; TEMP 36.6; O2SAT 91
[2016-11-05] MEDS: DILTIAZEM HCL 180 MG CAPCR PO SCH (11:28)
[2016-11-05 16:03] VITALS: BP 109/65; PULSE 140; TEMP 36.7; O2SAT 92
[2016-11-05 20:07] VITALS: BP 118/69; PULSE 137; TEMP 37; O2SAT 95
--- NOTE | 2016-11-05 20:17 | Hospitalist Progress Note ---
Hospitalist Progress Note Date of Service Nov 05, 2016. Subjective Pt evaluation today including: conversation w/ patient, physical exam, chart review, lab review, review of studies, conversation w/ [facility] consultant (Cardiology), review of inpatient medication list Pt ahving abd pain but is doing ok. NGT removed today and jayjay clears, passing flatus and had small BM this AM. Heart rate remains in rapid A-fib Constitutional: No fever Respiratory: No shortness of breath Cardiovascular: No chest pain, No palpitations Abdomen: + pain, No constipation, No diarrhea, No nausea, No vomiting Skin: + rash (lef AC fossa with hard red lump) All Other Systems: Reviewed and Negative Objective Vital Signs Date Time Temp Pulse Resp B/P Pulse Ox O2 Delivery O2 Flow Rate FiO2 11/05/16 20:07 37.0 137 20 118/69 95 Nasal Cannula 2.0 11/05/16 18:04 140 109/65 11/05/16 16:03 36.7 140 18 109/65 92 Nasal Cannula 2.0 11/05/16 16:00 Nasal Cannula 2.0 11/05/16 12:00 Nasal Cannula 2.0 11/05/16 11:09 36.6 130 19 104/69 91 11/05/16 11:06 139 145/67 11/05/16 08:00 Nasal Cannula 2.0 11/05/16 07:16 36.7 80 18 145/67 94 Room Air 11/05/16 06:09 92 168/72 11/05/16 04:00 Room Air 11/05/16 03:20 36.7 91 18 154/77 94 Nasal Cannula 2.0 11/04/16 23:59 Room Air 11/04/16 23:44 98 11/04/16 23:40 37.0 98 18 135/58 94 Nasal Cannula 2.0 Physical Exam General Appearance: WD/WN, no apparent distress Eyes: normal inspection, sclerae normal ENT: pharynx normal Neck: trachea midline Respiratory/Chest: lungs clear, normal breath sounds, no respiratory distress, no accessory muscle use Cardiovascular: no edema, no gallop, no murmur, + tachycardia Abdomen: normal bowel sounds, soft, + tenderness (mostly RLQ without guarding or rebound) Extremities: non-tender, normal inspection, no pedal edema, no calf tenderness Neurologic/Psychiatric: alert, normal mood/affect, oriented x 3 Skin: warm/dry, + pertinent finding (left AC fossa with 3 x 2 cm indurated raised palpable mass that is TTP) Laboratory Results Last 24 Hours Test 11/05/16 06:22 White Blood Count 14.09 K/uL Red Blood Count 3.83 M/uL Hemoglobin 12.2 g/dL Hematocrit 36.2 % Mean Corpuscular Volume 94.5 fL Mean Corpuscular Hemoglobin 31.9 pg Mean Corpuscular Hemoglobin Concent 33.7 g/dl Platelet Count 212 K/uL Mean Platelet Volume 9.3 fL Neutrophils (%) (Auto) 77.6 % Lymphocytes (%) (Auto) 10.6 % Monocytes (%) (Auto) 10.5 % Eosinophils (%) (Auto) 0.6 % Basophils (%) (Auto) 0.2 % Neutrophils # (Auto) 10.93 K/uL Lymphocytes # (Auto) 1.49 K/uL Monocytes # (Auto) 1.48 K/uL Eosinophils # (Auto) 0.09 K/uL Basophils # (Auto) 0.03 K/uL RDW Standard Deviation 49.7 fL RDW Coefficient of Variation 14.5 % Immature Granulocyte % (Auto) 0.5 % Immature Granulocyte # (Auto) 0.07 K/uL Prothrombin Time 12.7 SECONDS Prothromb Time International Ratio 1.2 Activated Partial Thromboplast Time 29.2 SECONDS Partial Thromboplastin Ratio 1.1 Sodium Level 139 mmol/L Potassium Level 3.7 mmol/L Chloride Level 105 mmol/L Carbon Dioxide Level 27 mmol/L Anion Gap 7.0 mmol/L Blood Urea Nitrogen 13 mg/dl Creatinine 0.39 mg/dl Est Creatinine Clear Calc Drug Dose 118.9 ml/min Estimated GFR () 115.8 Estimated GFR (Non- 99.9 BUN/Creatinine Ratio 32.1 Random Glucose 100 mg/dl Calcium Level 7.8 mg/dl Phosphorus Level 2.5 mg/dl Magnesium Level 1.9 mg/dl Total Bilirubin 0.6 mg/dl Direct Bilirubin 0.2 mg/dl Aspartate Amino Transf (AST/SGOT) 25 U/L Alanine Aminotransferase (ALT/SGPT) 17 U/L Alkaline Phosphatase 58 U/L Total Protein 5.1 gm/dl Albumin 2.1 gm/dl Assessment and Plan Sepsis POA secondary to perforated appendix--the patient's presenting symptoms were that of abdominal pain, but due to the presence of symptomatic V. tach, she was first stabilized on amiodarone drip, and then CT of the abdomen and pelvis was performed, which revealed perforated appendix. She was then started on Cipro 500 mg IV twice a day and Flagyl 500 mg IV every 8 hours, with a known penicillin allergy. Surgical consult with Dr. Patel. For cardiac clearance STAT ECHO was completed which determined hyperdynamic LV function, no WMA. Pt underwent open appendectomy on 11/01 with drain placed. Pt placed NPO, as pt developed abd pain, bloating, N/V on 11/03. KUB determined SBO. NGT placed. NGT removed on 11/05, jayjay clears and passing stool. SBO resolved Peritoneal cx growing bacteroides -continue to adv diet as tolerated -pain control -bowel regimen -BERHANE drain to be removed as per Surgery -continue IV Cipro and Flagyl Symptomatic V. tach--the patient was given serial amiodarone IV boluses of 150 mg 2, and then started on amiodarone drip with good response and heart rate and blood pressure control while in the emergency department. DCed amio drip on and started on IV metoprolol. Continues to have intermittent rapid A-fib. -Appreciate cardiology recs to add on po diltiazem today but rate still in 130s- 140s this evening -will call Cardiology and see about starting Cardizem gtt vs adding on increased po dilt -Can convert to PO metoprolol once tolerating PO better -needs anticoagulation when safe to do so from surgical standpoint, still with some bloody serosang fluid in BERHANE--> will d/w Surgery tomorrow Hypomagnesemia/hypophosphatemia - Replaced PRN in IVFs Hypercholesterolemia--hold Zetia 10 mg by mouth daily. Depression--hold Cymbalta. Arthritis--hold Celebrex. DVT Proph-SCDs Dispo-FULL CODE Will need PT/OT evals
[2016-11-05] MEDS: DULOXETINE HCL 20 MG CAP PO SCH (21:32)
[2016-11-05] MEDS: OXYCODONE/ACETAMINOPHEN 5-325 TAB PO PRN (21:33)
[2016-11-05] MEDS: METOPROLOL TARTRATE 50 MG TAB PO SCH (21:50)
[2016-11-05 23:45] VITALS: BP 130/64; PULSE 87; TEMP 37.1; O2SAT 97
[2016-11-06] VITALS (8 sets, daily range): BP systolic 109–158; BP diastolic 52–73; PULSE 69–81; TEMP 36.5–36.8; O2SAT 87–96
[2016-11-06] MEDS ORDERED: METOPROLOL TARTRATE 1 MG/ML VIAL IV PRN
[2016-11-06] MEDS: METRONIDAZOLE / NSS 500 MG in PREMIXED NSS 100 ML IV SCH ×3 (05:06→21:33)
[2016-11-06 06:19] LABS: BASO % 0.2 %; BASO ABS # 0.02 K/uL (0-0.2); COMPLETE YES; EOS % 1.1 %; HEMATOCRIT 34.6 % (37-47); IG% 0.5 %; MEAN CORPUSCULAR HEMOGLOBIN 31.8 pg (25-34); MEAN CORPUSCULAR HGB CONC 33.8 g/dl (32-36); MEAN PLATELET VOLUME 9.6 fL (7.4-10.4); MONO % 15.5 %; NEUT % 65.7 %; PLATELET COUNT 235 K/uL (130-400); RED BLOOD COUNT 3.68 M/uL (4.2-5.4); WHITE BLOOD COUNT 12.96 K/uL (4.8-10.8)
[2016-11-06 06:26] LABS: INR 1.2 (0.9-1.1); PROTHROMBIN TIME (PATIENT) 13.3 SECONDS (9.0-12.0)
[2016-11-06 06:51] LABS: BUN/CREATININE RATIO 23.8 (10-20); CALCIUM 7.7 mg/dl (8.5-10.1); CREATININE 0.46 mg/dl (0.60-1.20); MAGNESIUM 1.7 mg/dl (1.8-2.4); POTASSIUM 3.5 mmol/L (3.5-5.1)
--- NOTE | 2016-11-06 07:10 | SURGERY PROGRESS NOTE ---
DATE: 11/06/2016 Lucinda's 5th postoperative day status post an open appendectomy for perforated necrotic appendicitis. She states she feels much better today. She has had few small bowel movements. She had quite a urine output yesterday, we had given her just 10 mg of Lasix. Her last vitals showed a temperature of 36.6, pulse 74, respirations 18, blood pressure 102/52, O2 sats 95 on 2 liters. I\T\O as stated with excellent urine output. Her weight is down to 69.8; on admission, she was 63 kilograms, so she may slightly be overloaded. Laboratory [place], this morning's is pending. The Telly drainage is very little, it is serous, slightly sanguineous. The abdomen is much softer, no fluid wave appreciated. The right lower quadrant incision is less erythematous than it was yesterday morning. She is tolerating a liquid diet. At this point, we will advance her diet. Certainly, she should be ready to have her Telly drain removed later today. We will evaluate the laboratory studies first and will increase activity. 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
[2016-11-06] MEDS: METOPROLOL TARTRATE 50 MG TAB PO SCH ×2 (07:57→21:34)
[2016-11-06] MEDS: PANTOprazole INJ 40 MG in SYRINGE 0 ML IV SCH (07:57)
[2016-11-06] MEDS: EZETIMIBE 10MG TAB PO SCH (07:57)
[2016-11-06] MEDS: CIPROFLOXACIN / D5W 400 MG in PREMIXED IN D5W 200 ML IV SCH ×2 (07:57→21:34)
[2016-11-06] MEDS: DILTIAZEM HCL 180 MG CAPCR PO SCH (07:58)
[2016-11-06] MEDS: DOCUSATE SODIUM 100 MG CAP PO SCH ×2 (07:58→21:34)
[2016-11-06] MEDS ORDERED: MAGNESIUM SULFATE 1GM / D5W 1 GM in PREMIXED IN D5W 100 ML IV ONE (09:00)
[2016-11-06] MEDS: HEPARIN SOD 5000 UNIT/0.5 ML CARP SQ SCH ×2 (09:01→21:39)
[2016-11-06] MEDS ORDERED: POTASSIUM CHLORIDE 20 MEQ TABCR PO ONE (09:30)
--- NOTE | 2016-11-06 18:48 | Cardiology Follow-Up ---
Subjective Date of Service: Nov 06, 2016. Pt evaluation today including: conversation w/ patient, physical exam, lab review, review of studies, review of inpatient medication list History of Present Illness This is a very pleasant 81-year-old woman who has a history of rapid atrial fibrillation which was identified when she presented with an acute illness on . She had normal left ventricular function at the time, she had a 3 day hospitalization and other than her initial presentation after which she converted to normal rhythm she had no further atrial fibrillation. She did have low-grade enzymes and mild congestive heart failure at that time. Subsequently it is unclear that she had any symptoms or documentation of an atrial arrhythmia until presentation here on 10/31/2016. She presented with weakness and abdominal discomfort, in the emergency room was noted to have bradycardia with frequent premature ventricular beats and short runs of nonsustained ventricular tachycardia as well as brief periods of paroxysmal atrial fibrillation. She was briefly on IV amiodarone. She went to surgery for a ruptured appendix She cannot describe symptoms of palpitations, chest discomfort, etc. leading up to or following her admission this visit. An echocardiogram done 10/31/2016 showed mild left ventricular hypertrophy, a hyperdynamic left ventricle with an ejection fraction of 70%. Cardiac enzymes have been negative. On 11/05/2016 she went back into atrial fibrillation, this was identified on telemetry but she was unaware of it. On further discussion with her however she has observed a rapid heart rate when she takes her blood pressure from time to time at home, she can't give me specific as to how often but apparently it is relatively frequent. She had not told us about this before but that is consistent with having atrial fibrillation at home. We need better rate control if possible, so I added diltiazem to her regimen yesterday. Her beta mayra was converted to oral yesterday evening. She feels well today from the standpoint of the arrhythmia and is eating well now. Social History Smoking Status: Never Smoker History of Alcohol Use: No Review of Systems Respiratory: No shortness of breath Cardiac: No chest pain, No palpitations Medications Cardiovascular: Item Value Date Time Diltiazem HCl 180 mg 11/05/16 0945 (Cardizem Cd Cap) QAM/PO 11/06/16 0758 Hydralazine HCl 10 mg 11/04/162014 (HydrALAZINE INJ) Q4H PRN/IV. 11/04/162029 Metoprolol 50 mg 11/02/16 2100 Tartrate BID/PO 11/06/16 0757 (Lopressor Tab) Heparin Sodium 5,000 unit 11/02/162099 (Porcine) Q12/SQ 11/06/16 0901 (Heparin Sq 5000 Unit/0.5ml) Objective Vital Signs Past 12 Hours Date Time Temp Pulse Resp B/P Pulse Ox O2 Delivery O2 Flow Rate FiO2 11/06/16 16:15 Nasal Cannula 2.0 11/06/16 16:10 36.5 75 16 138/73 94 11/06/16 16:00 Nasal Cannula 2.0 11/06/16 14:42 Nasal Cannula 2.0 11/06/16 12:00 Nasal Cannula 2.0 11/06/16 11:51 36.8 69 18 118/67 96 Nasal Cannula 2.0 11/06/16 08:00 Nasal Cannula 2.0 11/06/16 07:30 36.6 80 20 126/67 93 Nasal Cannula 2.0 Last Recorded Weight-Kilograms: 69.800 Intake & Output 8-Hour Column 11/05/16 11/06/16 11/06/16 16:00 00:00 08:00 Intake Total 870 ml 601 ml 807 ml Output Total 1305 ml 360 ml 205 ml Balance -435 ml 241 ml 602 ml 24-Hour Column 11/06/16 08:00 Intake Total 2278 ml Output Total 1870 ml Balance 408 ml Physical Exam Constitutional: General Apperance: heathly-appearing Level of Distress: NAD Lungs: Respiratory effort: no dyspnea, good air movement Auscultation: breath sounds normal, no wheezing Cardiovascular: Heart Auscultation: no murmurs, no rubs, no gallops, tachycardia, irregular rate rhythm Peripheral Pulses: Bruits: none appreciated Extremities: no edema Data Laboratory Results: Last 24 Hours Test 11/06/16 05:47 White Blood Count 12.96 K/uL Red Blood Count 3.68 M/uL Hemoglobin 11.7 g/dL Hematocrit 34.6 % Mean Corpuscular Volume 94.0 fL Mean Corpuscular Hemoglobin 31.8 pg Mean Corpuscular Hemoglobin Concent 33.8 g/dl Platelet Count 235 K/uL Mean Platelet Volume 9.6 fL Neutrophils (%) (Auto) 65.7 % Lymphocytes (%) (Auto) 17.0 % Monocytes (%) (Auto) 15.5 % Eosinophils (%) (Auto) 1.1 % Basophils (%) (Auto) 0.2 % Neutrophils # (Auto) 8.52 K/uL Lymphocytes # (Auto) 2.20 K/uL Monocytes # (Auto) 2.01 K/uL Eosinophils # (Auto) 0.14 K/uL Basophils # (Auto) 0.02 K/uL RDW Standard Deviation 49.5 fL RDW Coefficient of Variation 14.3 % Immature Granulocyte % (Auto) 0.5 % Immature Granulocyte # (Auto) 0.07 K/uL Prothrombin Time 13.3 SECONDS Prothromb Time International Ratio 1.2 Sodium Level 141 mmol/L Potassium Level 3.5 mmol/L Chloride Level 105 mmol/L Carbon Dioxide Level 28 mmol/L Anion Gap 8.0 mmol/L Blood Urea Nitrogen 11 mg/dl Creatinine 0.46 mg/dl Est Creatinine Clear Calc Drug Dose 92.8 ml/min Estimated GFR () 109.7 Estimated GFR (Non- 94.6 BUN/Creatinine Ratio 23.8 Random Glucose 121 mg/dl Calcium Level 7.7 mg/dl Magnesium Level 1.7 mg/dl Total Bilirubin 0.7 mg/dl Direct Bilirubin 0.2 mg/dl Aspartate Amino Transf (AST/SGOT) 19 U/L Alanine Aminotransferase (ALT/SGPT) 18 U/L Alkaline Phosphatase 50 U/L Total Protein 5.0 gm/dl Albumin 2.2 gm/dl Telemetry reviewed: In SR since about 8 PM on 11/05/2016, rate not slow. Assessment and Plan #1. Atrial fibrillation: She has a history of atrial fibrillation during an acute illness, and she had brief atrial fibrillation here again during an acute presentation. I suspect this represents a more frequent arrhythmia than these brief episodes when she is acutely ill, especially in view of her now recalling that she detects a rapid heart rate on her automatic blood pressure machine with some frequency. intermediate frame tender monitoring might be reasonable to future, however based on her blood pressure measurements and recurrent atrial fibrillation here I think we need to treat her for recurrent atrial fibrillation with anticoagulation and rate control. If we can't adequately control the rate we can consider rhythm control. So far she is doing well on tghe combination of calcium and beta blockade with no bradycardia, she is not in AF so we can't assess rate control very well. We also need to consider anticoagulation and I would add one of the oral agents if possible (I prefer Eliquis). I would anticipate that she needs long-term anticoagulant therapy. #2. Nonsustained ventricular tachycardia: She had runs of premature ventricular beats and brief nonsustained ventricular tachycardia, seemingly monomorphic, on admission. These were in association of her acute illness on presentation, and may not represent an ongoing problem. She has had no further events. For now I would just use the beta mayra and did not investigate any further. #3. Hypertension: At home she was on amlodipine as well as metoprolol, here on intravenous metoprolol her blood pressure was somewhat elevated and she was on hydralazine. My approach would be to switch her amlodipine to diltiazem to help with rate control and continue beta-blockade. If blood pressure still an issue we can add some other agent and later date but we may need higher doses of beta blockade and calcium blockade to achieve rate control. So far her BP has been under good control on beta and calcium blockade. Thank you for allowing me to participate in her care.
[2016-11-06] MEDS: DULOXETINE HCL 20 MG CAP PO SCH (21:35)
--- NOTE | 2016-11-06 22:32 | Hospitalist Progress Note ---
Hospitalist Progress Note Date of Service Nov 06, 2016. Subjective Pt evaluation today including: conversation w/ patient, physical exam, lab review, conversation w/ middleware consultant (Surgery, Cardiology), review of inpatient medication list Pt doing well, jayjay reg diet, min abd pain, remains in NSR since 8 PM last night after restarting po metoprolol All Other Systems: Reviewed and Negative Objective Vital Signs Date Time Temp Pulse Resp B/P Pulse Ox O2 Delivery O2 Flow Rate FiO2 11/06/16 19:19 36.6 76 18 155/70 94 Room Air 11/06/16 16:15 Nasal Cannula 2.0 11/06/16 16:10 36.5 75 16 138/73 94 11/06/16 16:00 Nasal Cannula 2.0 11/06/16 14:42 Nasal Cannula 2.0 11/06/16 12:00 Nasal Cannula 2.0 11/06/16 11:51 36.8 69 18 118/67 96 Nasal Cannula 2.0 11/06/16 08:00 Nasal Cannula 2.0 11/06/16 07:30 36.6 80 20 126/67 93 Nasal Cannula 2.0 11/06/16 04:00 Nasal Cannula 2.0 11/06/16 03:05 36.6 74 18 109/52 95 Room Air 11/06/16 00:00 Nasal Cannula 2.0 11/05/16 23:45 37.1 87 16 130/64 97 Nasal Cannula 2.0 Physical Exam General Appearance: WD/WN, no apparent distress Eyes: normal inspection, sclerae normal ENT: hearing grossly normal, pharynx normal Neck: trachea midline Respiratory/Chest: lungs clear, normal breath sounds, no respiratory distress, no accessory muscle use Cardiovascular: regular rate, rhythm, no edema, no gallop, no murmur Abdomen: normal bowel sounds, soft, + tenderness (minimal in RLQ, drain removed , no guarding or rebound) Extremities: normal inspection, no calf tenderness Neurologic/Psychiatric: alert, normal mood/affect, oriented x 3 Skin: normal color, warm/dry, no rash Laboratory Results Last 24 Hours Test 11/06/16 05:47 White Blood Count 12.96 K/uL Red Blood Count 3.68 M/uL Hemoglobin 11.7 g/dL Hematocrit 34.6 % Mean Corpuscular Volume 94.0 fL Mean Corpuscular Hemoglobin 31.8 pg Mean Corpuscular Hemoglobin Concent 33.8 g/dl Platelet Count 235 K/uL Mean Platelet Volume 9.6 fL Neutrophils (%) (Auto) 65.7 % Lymphocytes (%) (Auto) 17.0 % Monocytes (%) (Auto) 15.5 % Eosinophils (%) (Auto) 1.1 % Basophils (%) (Auto) 0.2 % Neutrophils # (Auto) 8.52 K/uL Lymphocytes # (Auto) 2.20 K/uL Monocytes # (Auto) 2.01 K/uL Eosinophils # (Auto) 0.14 K/uL Basophils # (Auto) 0.02 K/uL RDW Standard Deviation 49.5 fL RDW Coefficient of Variation 14.3 % Immature Granulocyte % (Auto) 0.5 % Immature Granulocyte # (Auto) 0.07 K/uL Prothrombin Time 13.3 SECONDS Prothromb Time International Ratio 1.2 Sodium Level 141 mmol/L Potassium Level 3.5 mmol/L Chloride Level 105 mmol/L Carbon Dioxide Level 28 mmol/L Anion Gap 8.0 mmol/L Blood Urea Nitrogen 11 mg/dl Creatinine 0.46 mg/dl Est Creatinine Clear Calc Drug Dose 92.8 ml/min Estimated GFR () 109.7 Estimated GFR (Non- 94.6 BUN/Creatinine Ratio 23.8 Random Glucose 121 mg/dl Calcium Level 7.7 mg/dl Magnesium Level 1.7 mg/dl Total Bilirubin 0.7 mg/dl Direct Bilirubin 0.2 mg/dl Aspartate Amino Transf (AST/SGOT) 19 U/L Alanine Aminotransferase (ALT/SGPT) 18 U/L Alkaline Phosphatase 50 U/L Total Protein 5.0 gm/dl Albumin 2.2 gm/dl Assessment and Plan Sepsis POA secondary to perforated appendix--the patient's presenting symptoms were that of abdominal pain, but due to the presence of symptomatic V. tach, she was first stabilized on amiodarone drip, and then CT of the abdomen and pelvis was performed, which revealed perforated appendix. She was then started on Cipro 500 mg IV twice a day and Flagyl 500 mg IV every 8 hours, with a known penicillin allergy. Surgical consult with Dr. Patel. For cardiac clearance STAT ECHO was completed which determined hyperdynamic LV function, no WMA. Pt underwent open appendectomy on 11/01 with drain placed. Pt placed NPO, as pt developed abd pain, bloating, N/V on 11/03. KUB determined SBO. NGT placed. NGT removed on 11/05, jayjay clears and passing stool. SBO resolved Peritoneal cx growing bacteroides Tolerating reg diet, afebrile, WBC count trending downward, Telly drain removed -pain control -bowel regimen -appreciate Surgery management -continue IV Cipro and Flagyl Symptomatic V. tach--the patient was given serial amiodarone IV boluses of 150 mg 2, and then started on amiodarone drip with good response and heart rate and blood pressure control while in the emergency department. DCed amio drip on and started on IV metoprolol. Continued to have intermittent rapid A-fib. -Appreciate cardiology recs -continue po diltiazem and metoprolol -needs anticoagulation when safe to do so from surgical standpoint--> Surgery says ok 24 hrs after drain removed -will start Eliquis tomorrow evening Hypomagnesemia/hypophosphatemia - Replaced PRN in IVFs Hypercholesterolemia-restart Zetia 10 mg by mouth daily. Depression--restart Cymbalta. Arthritis--hold Celebrex. DVT Proph-SCDs, SQ heparin Dispo-FULL CODE to [facility] when ready in 1-2 days
[2016-11-06] MEDS: OXYCODONE/ACETAMINOPHEN 5-325 TAB PO PRN (23:23)
[2016-11-07] VITALS (11 sets, daily range): BP systolic 109–176; BP diastolic 60–85; PULSE 68–82; TEMP 36.3–37; O2SAT 91–97
[2016-11-07] MEDS: METRONIDAZOLE / NSS 500 MG in PREMIXED NSS 100 ML IV SCH ×3 (05:39→22:27)
[2016-11-07 05:57] LABS: BASO % 0.1 %; BASO ABS # 0.01 K/uL (0-0.2); COMPLETE YES; EOS % 1.6 %; IG% 0.8 %; LYMPH % 14.6 %; LYMPH ABS # 1.67 K/uL (1.2-3.4); MEAN CELL VOLUME 93.9 fL (80-100); MEAN CORPUSCULAR HEMOGLOBIN 31.5 pg (25-34); MEAN CORPUSCULAR HGB CONC 33.5 g/dl (32-36); MEAN PLATELET VOLUME 9.8 fL (7.4-10.4); MONO % 13.9 %; PLATELET COUNT 229 K/uL (130-400); RED BLOOD COUNT 3.62 M/uL (4.2-5.4); WHITE BLOOD COUNT 11.42 K/uL (4.8-10.8)
[2016-11-07 06:29] LABS: BUN/CREATININE RATIO 18.2 (10-20); CALCIUM 7.7 mg/dl (8.5-10.1); CREATININE 0.48 mg/dl (0.60-1.20); MAGNESIUM 1.8 mg/dl (1.8-2.4); POTASSIUM 3.9 mmol/L (3.5-5.1)
--- NOTE | 2016-11-07 08:06 | SURGERY PROGRESS NOTE ---
DATE: 11/07/2016 Lucinda is 6th postoperative day status post open appendectomy for perforated necrotic appendix. She is starting to feel much better. Yesterday she had a very good day. She is voicing no complaints. Her Telly drain had been removed. The last vitals showed a temperature of 36.6, pulse 68, respirations 18, blood pressure 125/60, O2 sats 94 on 2 liters. Her I\T\O, she is still slightly positive, but she is mobilizing fluids. Her bowels have moved. The abdomen is completely benign. The right lower quadrant Alfonso-Tono incision. The sutures were removed. There is slight irritation probably from the sutures, but no dafne cellulitis. I did reapply the dressing on her. She will have some drainage from that wound and may actually even open up more. At this point, there is nothing to do for it except apply daily dressing and this was discussed with the patient. It will eventually heal up. Her last laboratory showed a white count 11.42 which is decreasing as is her left shift. At this point, from my point of view, the patient can be discharged at the discretion of her primary service. I would continue her on Cipro and Flagyl for approximately another 4 or 5 days to complete her course due to significant inflammation that she had in her abdominal cavity from the ruptured appendix. I will see her back in the office in approximately 1 week. There is no restriction on her activity. She can shower and they are waiting as my understanding to have a bed at [facility] and she will be discharged.
[2016-11-07] MEDS: CIPROFLOXACIN / D5W 400 MG in PREMIXED IN D5W 200 ML IV SCH ×2 (09:23→20:28)
[2016-11-07] MEDS: METOPROLOL TARTRATE 50 MG TAB PO SCH ×2 (09:24→20:30)
[2016-11-07] MEDS: DILTIAZEM HCL 180 MG CAPCR PO SCH (09:24)
[2016-11-07] MEDS: PANTOprazole SOD 40 MG TAB PO SCH (09:24)
[2016-11-07] MEDS: DOCUSATE SODIUM 100 MG CAP PO SCH ×2 (09:24→20:28)
[2016-11-07] MEDS: EZETIMIBE 10MG TAB PO SCH (09:24)
[2016-11-07] MEDS: HEPARIN SOD 5000 UNIT/0.5 ML CARP SQ SCH (09:27)
[2016-11-07] MEDS: ACETAMINOPHEN 325 MG TAB PO PRN (15:45)
[2016-11-07] MEDS: OXYCODONE/ACETAMINOPHEN 5-325 TAB PO PRN (20:28)
[2016-11-07] MEDS: DULOXETINE HCL 20 MG CAP PO SCH (20:29)
[2016-11-07] MEDS: APIXABAN 2.5 MG TAB PO SCH (20:30)
--- NOTE | 2016-11-07 22:02 | Hospitalist Progress Note ---
Hospitalist Progress Note Date of Service Nov 07, 2016. Subjective Pt evaluation today including: conversation w/ patient, physical exam, lab review, review of inpatient medication list Doing very well, eating and min abd pain, passing stool and flatus. No CP or SOB , heart remains in NSR Constitutional: No fever Cardiovascular: No chest pain All Other Systems: Reviewed and Negative Objective Vital Signs Date Time Temp Pulse Resp B/P Pulse Ox O2 Delivery O2 Flow Rate FiO2 11/07/16 20:00 96 Room Air 2.0 11/07/16 19:39 36.5 77 18 146/85 96 Room Air 11/07/16 16:00 95 Nasal Cannula 2.0 11/07/16 15:38 37.0 76 18 109/62 95 11/07/16 12:00 97 Nasal Cannula 2.0 11/07/16 11:51 36.5 76 18 141/62 96 11/07/16 11:25 82 94 11/07/16 08:00 97 Nasal Cannula 2.0 11/07/16 07:27 36.3 73 18 145/64 97 Nasal Cannula 2.0 11/07/16 04:00 Nasal Cannula 2.0 11/07/16 04:00 36.6 68 18 125/60 94 Nasal Cannula 2.0 11/07/16 00:00 Nasal Cannula 2.0 11/06/16 23:24 92 Nasal Cannula 2.0 11/06/16 23:23 36.6 81 18 158/64 87 Room Air Physical Exam General Appearance: WD/WN, no apparent distress Eyes: normal inspection, sclerae normal Neck: trachea midline Respiratory/Chest: normal breath sounds, no respiratory distress, no accessory muscle use Cardiovascular: regular rate, rhythm, no edema, no murmur Abdomen: normal bowel sounds, soft, + tenderness (mild in RLQ w/o guarding) Extremities: non-tender, normal inspection, no pedal edema, no calf tenderness Neurologic/Psychiatric: alert, normal mood/affect, oriented x 3 Skin: normal color, warm/dry, no rash Laboratory Results Last 24 Hours Test 11/07/16 05:24 White Blood Count 11.42 K/uL Red Blood Count 3.62 M/uL Hemoglobin 11.4 g/dL Hematocrit 34.0 % Mean Corpuscular Volume 93.9 fL Mean Corpuscular Hemoglobin 31.5 pg Mean Corpuscular Hemoglobin Concent 33.5 g/dl Platelet Count 229 K/uL Mean Platelet Volume 9.8 fL Neutrophils (%) (Auto) 69.0 % Lymphocytes (%) (Auto) 14.6 % Monocytes (%) (Auto) 13.9 % Eosinophils (%) (Auto) 1.6 % Basophils (%) (Auto) 0.1 % Neutrophils # (Auto) 7.88 K/uL Lymphocytes # (Auto) 1.67 K/uL Monocytes # (Auto) 1.59 K/uL Eosinophils # (Auto) 0.18 K/uL Basophils # (Auto) 0.01 K/uL RDW Standard Deviation 49.5 fL RDW Coefficient of Variation 14.4 % Immature Granulocyte % (Auto) 0.8 % Immature Granulocyte # (Auto) 0.09 K/uL Sodium Level 139 mmol/L Potassium Level 3.9 mmol/L Chloride Level 104 mmol/L Carbon Dioxide Level 29 mmol/L Anion Gap 6.0 mmol/L Blood Urea Nitrogen 9 mg/dl Creatinine 0.48 mg/dl Est Creatinine Clear Calc Drug Dose 88.9 ml/min Estimated GFR () 108.1 Estimated GFR (Non- 93.3 BUN/Creatinine Ratio 18.2 Random Glucose 136 mg/dl Calcium Level 7.7 mg/dl Magnesium Level 1.8 mg/dl Assessment and Plan Sepsis POA secondary to perforated appendix--the patient's presenting symptoms were that of abdominal pain, but due to the presence of symptomatic V. tach, she was first stabilized on amiodarone drip, and then CT of the abdomen and pelvis was performed, which revealed perforated appendix. She was then started on Cipro 500 mg IV twice a day and Flagyl 500 mg IV every 8 hours, with a known penicillin allergy. Surgical consult with Dr. Patel. For cardiac clearance STAT ECHO was completed which determined hyperdynamic LV function, no WMA. Pt underwent open appendectomy on 11/01 with drain placed. Pt placed NPO, as pt developed abd pain, bloating, N/V on 11/03. KUB determined SBO. NGT placed. NGT removed on 11/05, jayjay clears and passing stool. SBO resolved Peritoneal cx growing bacteroides Tolerating reg diet, afebrile, WBC count trending downward, Telly drain removed -pain control -bowel regimen -appreciate Surgery management -continue IV Cipro and Flagyl for 5 more days through 11/12/16 Symptomatic V. tach, PAF, Chronic diastolic CHF, HTN--for VT the patient was given serial amiodarone IV boluses of 150 mg 2, and then started on amiodarone drip with good response and heart rate and blood pressure control while in the emergency department. DCed amiodarone drip and started on IV metoprolol. Continued to have intermittent rapid A-fib. A-fib now resolved, back in NSR. CHADS2 score is 3. ECHO: * Sinus rhythm with occasional premature atrial complexes was present during the echocardiogram examination. * There is mild concentric left ventricular hypertrophy. * No regional wall motion abnormalities noted. * The left ventricle is hyperdynamic. * The qualitative LV Ejection Fraction = >70 %. * The right ventricle is normal in size and function. * Aortic valve sclerosis mild, without significant aortic valvular stenosis. * The anterior mitral valve is mildly calcified. * Significant mitral regurgitation is absent. * There is no mitral valve stenosis. * Grade I diastolic dysfunction, (abnormal relaxation pattern). -Appreciate cardiology recs -continue po diltiazem and metoprolol -needs anticoagulation when safe to do so from surgical standpoint--> Surgery says ok 24 hrs after drain removed -After discussion of risk/benefits/alt, pt agrees to start Eliquis today Hypomagnesemia/hypophosphatemia - Replaced PRN in IVFs Hypercholesterolemia-restart Zetia 10 mg by mouth daily. Depression--restart Cymbalta. Arthritis--hold Celebrex. DVT Proph-SCDs, Eliquis Dispo-FULL CODE to [facility] when approved-hopefully tomorrow
[2016-11-08 04:22] VITALS: BP 146/88; PULSE 74; TEMP 36.8; O2SAT 91
[2016-11-08] MEDS: METRONIDAZOLE / NSS 500 MG in PREMIXED NSS 100 ML IV SCH (05:45)
[2016-11-08 07:00] VITALS: BP 151/77; PULSE 78; TEMP 36.5; O2SAT 94
[2016-11-08 08:00] VITALS: O2SAT 94
--- NOTE | 2016-11-08 08:01 | SURGERY PROGRESS NOTE ---
DATE: 11/08/2016 Lucinda is doing well overall. She has no real issues. She is resting very comfortably. The only problem which is not a problem is that she has been given I guess some diuretic yesterday and mobilized fluid quite a bit during the night. Her last vitals showed a temperature of 36.8, pulse 74, respirations 18, blood pressure 146/88, O2 sats 91 on room air. Her abdomen is completely benign; the right lower quadrant incision. The cellulitis wherever it was white almost a skin reaction to the suture is unchanged. Very little drainage. I asked her to continue placing a dressing in that area. The plan according to the patient is that she will be discharged to [facility] today and I had written instructions on her yesterday regarding followup activity.
[2016-11-08 08:20] LABS: BASO % 0.1 %; BASO ABS # 0.01 K/uL (0-0.2); COMPLETE YES; EOS % 1.2 %; HEMATOCRIT 38.9 % (37-47); LYMPH % 15.4 %; LYMPH ABS # 1.71 K/uL (1.2-3.4); MEAN CELL VOLUME 95.8 fL (80-100); MEAN CORPUSCULAR HEMOGLOBIN 32.5 pg (25-34); MEAN CORPUSCULAR HGB CONC 33.9 g/dl (32-36); MEAN PLATELET VOLUME 9.5 fL (7.4-10.4); MONO % 10.7 %; NEUT % 71.6 %; PLATELET COUNT 277 K/uL (130-400); RED BLOOD COUNT 4.06 M/uL (4.2-5.4); WHITE BLOOD COUNT 11.13 K/uL (4.8-10.8)
[2016-11-08] MEDS: PANTOprazole SOD 40 MG TAB PO SCH (08:29)
[2016-11-08] MEDS: CIPROFLOXACIN / D5W 400 MG in PREMIXED IN D5W 200 ML IV SCH (08:29)
[2016-11-08] MEDS: APIXABAN 2.5 MG TAB PO SCH (08:29)
[2016-11-08] MEDS: DILTIAZEM HCL 180 MG CAPCR PO SCH (08:30)
[2016-11-08] MEDS: METOPROLOL TARTRATE 50 MG TAB PO SCH (08:30)
[2016-11-08] MEDS: EZETIMIBE 10MG TAB PO SCH (08:30)
[2016-11-08] MEDS: DOCUSATE SODIUM 100 MG CAP PO SCH (08:30)
[2016-11-08 08:53] LABS: BUN/CREATININE RATIO 17.5 (10-20); CALCIUM 8.2 mg/dl (8.5-10.1); CREATININE 0.4 mg/dl (0.60-1.20); MAGNESIUM 1.7 mg/dl (1.8-2.4); POTASSIUM 3.8 mmol/L (3.5-5.1)
[2016-11-08] MEDS: OXYCODONE/ACETAMINOPHEN 5-325 TAB PO PRN (09:21)
[2016-11-08 12:00] VITALS: O2SAT 94
[2016-11-08] MEDS ORDERED: MAGNESIUM SULFATE 1GM / D5W 1 GM in PREMIXED IN D5W 100 ML IV ONE (12:00)
[2016-11-08] MEDS ORDERED: CPR500 PO (12:08)
[2016-11-08] MEDS ORDERED: PRT40 PO (12:08)
[2016-11-08] MEDS ORDERED: APIX1TAB3 PO (12:08)
[2016-11-08] MEDS ORDERED: CRDCD180 PO (12:08)
[2016-11-08] MEDS ORDERED: METR500T PO (12:08)
[2016-11-08] MEDS ORDERED: OXYC-57 PO (12:08)
--- NOTE | 2016-11-08 12:39 | Discharge Instructions ---
Discharge Instructions Admission Reason for Admission: Ruptured acute appendicitis, NSVT Discharge Discharge Diagnosis / Problem: Ruptured acute appendicitis, NSVT, Rapid atrial fibrillation Discharge Goals Goal(s): Improve disease control, Diagnostic testing, Therapeutic intervention Activity Recommendations Activity Level: Assistance Required Therapies: Physical Therapy, Occupational Therapy Shower/Bathe: no limitations . Additional Information Patient informed of condition: Yes Advance Directives: Yes DNR: No Level of Care: Acute Rehab Communicable Disease: No Prognosis: Stable Oxygen at (LPM): N/A Villagran Catheter: No Instructions / Follow-Up Instructions / Follow-Up The patient is a 81-year-old female who presented to the emergency department with family with complaints of worsening weakness and abdominal pain the past couple days. She had been seen in the emergency department the previous day for nausea and hypertension, was discharged home on amlodipine after being treated for hypertensive urgency. She did have a WBC count at that time of 17k but was thought that she may have a viral illness. On the day of admission, the daughter reported that patient was more altered mental status-copeland, often staring off with a blank expression on her face, and acting more confused. She woke up after a nap and when she tried to walk downstairs she became too weak and had sit down intermediate downstairs to rest. When she was seen by EMS at home, she was found to be altered, and en route her pulse ox was in the 80s and improved with 2 L of oxygen. She was found to have a ruptured appendix on CT scan in the ER. She was tachycardic and was having some runs of NSVT in the ER. She was given serial amiodarone IV boluses of 150 mg 2, and then started on amiodarone drip with good response and heart rate and blood pressure control while in the emergency department. She was admitted to the ICU for further care. Serial cardiac enzymes were negative, and a 2-D echocardiogram with Dopplers showed mild LVH, hyperdynamic LV function and grade 1 diastolic dysfunction. Her amlodipine and metoprolol were held. Sepsis POA secondary to perforated appendix--Started on IV Cipro and Flagyl. Surgical consult with Dr. Patel. For cardiac clearance STAT ECHO was completed which determined hyperdynamic LV function, no WMA. Pt underwent open appendectomy on 11/01 with drain placed. Pt placed NPO, as pt developed abd pain , bloating, N/V on 11/03. KUB determined SBO. NGT placed. NGT removed on 11/05, jayjay clears and passing stool. SBO resolved Peritoneal cx growing bacteroides, diphtheroids Blood cultures with no growth Tolerating reg diet, afebrile, WBC count trending downward, Telly drain removed and doing very well, passing stool. Pain controlled with percocet. -continue pain control -bowel regimen -appreciate Surgery management -continue po Cipro and Flagyl for 4 more days through 11/12/16 -Follow up with Surgery/Dr. Macario in 1 week Symptomatic V. tach, PAF, Chronic diastolic CHF, HTN--for VT the patient was given serial amiodarone IV boluses of 150 mg 2, and then started on amiodarone drip with good response and heart rate and blood pressure control while in the emergency department. DCed amiodarone drip and started on IV metoprolol. Continued to have intermittent rapid A-fib. A-fib now resolved, back in NSR. CHADS2 score is 3. ECHO: * Sinus rhythm with occasional premature atrial complexes was present during the echocardiogram examination. * There is mild concentric left ventricular hypertrophy. * No regional wall motion abnormalities noted. * The left ventricle is hyperdynamic. * The qualitative LV Ejection Fraction = >70 %. * The right ventricle is normal in size and function. * Aortic valve sclerosis mild, without significant aortic valvular stenosis. * The anterior mitral valve is mildly calcified. * Significant mitral regurgitation is absent. * There is no mitral valve stenosis. * Grade I diastolic dysfunction, (abnormal relaxation pattern). -Appreciate cardiology recs -continue po diltiazem and metoprolol -needs anticoagulation when safe to do so from surgical standpoint--> Surgery says ok 24 hrs after drain removed -After discussion of risk/benefits/alt, pt agreed to start Eliquis -Follow up with Dr. Tolliver/Cardiology in 1 month Hypomagnesemia/hypophosphatemia - Replaced PRN in IV Hypercholesterolemia-restart Zetia 10 mg by mouth daily. Depression--restarted Cymbalta. Arthritis--hold Celebrex. DVT Proph-SCDs, Eliquis Dispo-FULL CODE to [facility] today Current Hospital Diet Patient's current hospital diet: AHA Diet (Heart Healthy) Discharge Diet Recommended Diet: AHA Diet (Heart Healthy) Procedures Procedures Performed: Appendectomy(open) Pending Studies Studies pending at discharge: no Physician Orders On Transfer Special Precautions: Fall risk Dressing Changes: Daily wound dressing changes IV Therapy: None Vital Signs: Routine Weigh: Routine Additional Orders: Follow up Surgery 1 week Follow up Cardiology Dr. Tolliver in 1 month [facility] Discussion: Not Applicable Laboratory Results Last 24 Hours Test 11/08/16 08:10 White Blood Count 11.13 K/uL Red Blood Count 4.06 M/uL Hemoglobin 13.2 g/dL Hematocrit 38.9 % Mean Corpuscular Volume 95.8 fL Mean Corpuscular Hemoglobin 32.5 pg Mean Corpuscular Hemoglobin Concent 33.9 g/dl Platelet Count 277 K/uL Mean Platelet Volume 9.5 fL Neutrophils (%) (Auto) 71.6 % Lymphocytes (%) (Auto) 15.4 % Monocytes (%) (Auto) 10.7 % Eosinophils (%) (Auto) 1.2 % Basophils (%) (Auto) 0.1 % Neutrophils # (Auto) 7.98 K/uL Lymphocytes # (Auto) 1.71 K/uL Monocytes # (Auto) 1.19 K/uL Eosinophils # (Auto) 0.13 K/uL Basophils # (Auto) 0.01 K/uL RDW Standard Deviation 50.9 fL RDW Coefficient of Variation 14.4 % Immature Granulocyte % (Auto) 1.0 % Immature Granulocyte # (Auto) 0.11 K/uL Sodium Level 137 mmol/L Potassium Level 3.8 mmol/L Chloride Level 102 mmol/L Carbon Dioxide Level 27 mmol/L Anion Gap 8.0 mmol/L Blood Urea Nitrogen 7 mg/dl Creatinine 0.40 mg/dl Est Creatinine Clear Calc Drug Dose 106.7 ml/min Estimated GFR () 114.8 Estimated GFR (Non- 99.1 BUN/Creatinine Ratio 17.5 Random Glucose 162 mg/dl Calcium Level 8.2 mg/dl Magnesium Level 1.7 mg/dl Medical Emergencies . Who to Call and When: Medical Emergencies: If at any time you feel your situation is an emergency, please call 911 immediately. . 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 . "Provider Documentation" section prepared by Jenn Flores. Core Measure Problem Core Measures: None [place] Drug Monitoring Program Search Results: patient reviewed within database, no issues identified
[2016-11-08 13:17] VITALS: BP 151/77; PULSE 78; TEMP 36.5; O2SAT 94
--- NOTE | 2016-11-08 17:55 | Cardiology Follow-Up ---
Subjective Date of Service: Nov 08, 2016. Pt evaluation today including: conversation w/ patient, physical exam, lab review, review of studies, review of inpatient medication list History of Present Illness This is a very pleasant 81-year-old woman who has a history of rapid atrial fibrillation which was identified when she presented with an acute illness on . She had normal left ventricular function at the time, she had a 3 day hospitalization and other than her initial presentation after which she converted to normal rhythm she had no further atrial fibrillation. She did have low-grade enzymes and mild congestive heart failure at that time. Subsequently it is unclear that she had any symptoms or documentation of an atrial arrhythmia until presentation here on 10/31/2016. She presented with weakness and abdominal discomfort, in the emergency room was noted to have bradycardia with frequent premature ventricular beats and short runs of nonsustained ventricular tachycardia as well as brief periods of paroxysmal atrial fibrillation. She was briefly on IV amiodarone. She went to surgery for a ruptured appendix She cannot describe symptoms of palpitations, chest discomfort, etc. leading up to or following her admission this visit. An echocardiogram done 10/31/2016 showed mild left ventricular hypertrophy, a hyperdynamic left ventricle with an ejection fraction of 70%. Cardiac enzymes have been negative. On 11/05/2016 she went back into atrial fibrillation, this was identified on telemetry but she was unaware of it. On further discussion with her however she has observed a rapid heart rate when she takes her blood pressure from time to time at home, she can't give me specific as to how often but apparently it is relatively frequent. She had not told us about this before but that is consistent with having atrial fibrillation at home. We need better rate control if possible, so I added diltiazem to her regimen. Her beta mayra was converted to oral. She converted to sinus rhythm just before she received her oral beta mayra and has remained in sinus rhythm so we don't know the degree of heart rate control. She feels well today from the standpoint of the arrhythmia and is eating well now. Social History Smoking Status: Never Smoker History of Alcohol Use: No Review of Systems Respiratory: No shortness of breath Cardiac: No chest pain Objective Vital Signs Past 12 Hours Date Time Temp Pulse Resp B/P Pulse Ox O2 Delivery O2 Flow Rate FiO2 11/08/16 13:17 36.5 78 18 94 Room Air 11/08/16 12:00 94 Room Air 11/08/16 08:00 94 Room Air 11/08/16 07:00 36.5 78 18 151/77 94 Room Air Last Recorded Weight-Kilograms: 70.600 Intake & Output 8-Hour Column 11/07/16 11/08/16 11/08/16 16:00 00:00 08:00 Intake Total 863 ml 479 ml 300 ml Output Total 450 ml 1050 ml 200 ml Balance 413 ml -571 ml 100 ml 24-Hour Column 11/08/16 08:00 Intake Total 1642 ml Output Total 1700 ml Balance -58 ml Physical Exam Constitutional: General Apperance: heathly-appearing Level of Distress: NAD Lungs: Respiratory effort: no dyspnea, good air movement Auscultation: breath sounds normal, no wheezing Cardiovascular: Heart Auscultation: no murmurs, no rubs, no gallops, tachycardia, irregular rate rhythm Peripheral Pulses: Bruits: none appreciated Extremities: no edema Data Laboratory Results: Last 24 Hours Test 11/08/16 08:10 White Blood Count 11.13 K/uL Red Blood Count 4.06 M/uL Hemoglobin 13.2 g/dL Hematocrit 38.9 % Mean Corpuscular Volume 95.8 fL Mean Corpuscular Hemoglobin 32.5 pg Mean Corpuscular Hemoglobin Concent 33.9 g/dl Platelet Count 277 K/uL Mean Platelet Volume 9.5 fL Neutrophils (%) (Auto) 71.6 % Lymphocytes (%) (Auto) 15.4 % Monocytes (%) (Auto) 10.7 % Eosinophils (%) (Auto) 1.2 % Basophils (%) (Auto) 0.1 % Neutrophils # (Auto) 7.98 K/uL Lymphocytes # (Auto) 1.71 K/uL Monocytes # (Auto) 1.19 K/uL Eosinophils # (Auto) 0.13 K/uL Basophils # (Auto) 0.01 K/uL RDW Standard Deviation 50.9 fL RDW Coefficient of Variation 14.4 % Immature Granulocyte % (Auto) 1.0 % Immature Granulocyte # (Auto) 0.11 K/uL Sodium Level 137 mmol/L Potassium Level 3.8 mmol/L Chloride Level 102 mmol/L Carbon Dioxide Level 27 mmol/L Anion Gap 8.0 mmol/L Blood Urea Nitrogen 7 mg/dl Creatinine 0.40 mg/dl Est Creatinine Clear Calc Drug Dose 106.7 ml/min Estimated GFR () 114.8 Estimated GFR (Non- 99.1 BUN/Creatinine Ratio 17.5 Random Glucose 162 mg/dl Calcium Level 8.2 mg/dl Magnesium Level 1.7 mg/dl Telemetry reviewed: Sinus rhythm the past 48 hours. Assessment and Plan #1. Atrial fibrillation: She has a history of atrial fibrillation during an acute illness, and she had brief atrial fibrillation here again during an acute presentation. I suspect this represents a more frequent arrhythmia than these brief episodes when she is acutely ill, especially in view of her now recalling that she detects a rapid heart rate on her automatic blood pressure machine with some frequency. custodial monitoring might be reasonable in the future, however based on her blood pressure measurements and recurrent atrial fibrillation here I think we need to treat her for recurrent atrial fibrillation with anticoagulation and rate control. If we can't adequately control the rate we can consider rhythm control. So far she is doing well on the combination of calcium and beta blockade with no bradycardia, she is not in AF so we can't assess rate control very well. I would anticipate that she needs long-term anticoagulant therapy. #2. Nonsustained ventricular tachycardia: She had runs of premature ventricular beats and brief nonsustained ventricular tachycardia, seemingly monomorphic, on admission. These were in association of her acute illness on presentation, and may not represent an ongoing problem. She has had no further events. For now I would just use the beta mayra and did not investigate any further. #3. Hypertension: At home she was on amlodipine as well as metoprolol, here on intravenous metoprolol her blood pressure was somewhat elevated and she was on hydralazine. My approach would be to switch her amlodipine to diltiazem to help with rate control and continue beta-blockade. If blood pressure still an issue we can add some other agent and later date but we may need higher doses of beta blockade and calcium blockade to achieve rate control. So far her BP has been under fair control on beta and calcium blockade. Thank you for allowing me to participate in her care.
--- NOTE | 2016-11-15 15:24 | Discharge Summary ---
Discharge Summary Date of Service Nov 08, 2016. 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 Possible 5 mm nodule within the right upper lobe will be assessed on the same day chest CT Chest CT: 1. No evidence for pulmonary embolus with limitations as described above. 2. Patchy densities within the bases of the bilateral lower lobes. This favors atelectasis. A pneumonia could also have a similar appearance but is considered less likely. 3. Small hiatus hernia. Head CT: No significant change compared to the prior study. No acute intracranial abnormality CT Abd/pel: 1. Above findings consistent with perforated acute appendicitis. There appears to be a small developing abscess within the right pelvic cul-de-sac. 2. No evidence for bowel obstruction. 3. Healing pelvic fractures as described above. 4. Small hiatus hernia. 5. Mild thickening at the cecal base is likely reactive to the acute appendicitis. KUB: IMPRESSION: Dilated small bowel loops, possibly representing a small bowel obstruction. Clinical and radiographic follow-up is recommended Consultations: General Surgery Cardiology Medication Reconciliation New Medications: Apixaban (Eliquis) 5 Mg Tab 5 MG PO BID for 30 Days, #60 TAB Ciprofloxacin (Ciprofloxacin HCl) 500 Mg Tab 500 MG PO BID for 4 Days, #8 TAB Diltiazem HCl (Diltiazem HCl ER) 180 Mg Capcr 180 MG PO QAM for 30 Days Oxycodone/Acetaminophen 5MG/325MG (Percocet 5MG/325MG) Tab 1 TAB PO Q4H PRN for Pain for 2 Days, #12 TAB PAIN Pantoprazole (Pantoprazole Sodium) 40 Mg Tab 40 MG PO QAM for 30 Days, #30 TAB Continued Medications: Docusate Sodium (Colace) 100 Mg Cap 1 CAP PO BID for 30 Days, #60 CAP Duloxetine HCl (Cymbalta) 20 Mg Cap 1 CAP PO HS for 30 Days, #30 CAP 2 Refills Ezetimibe (Zetia) 10 Mg Tab 10 MG PO QAM, TAB Loratadine (Claritin) 10 Mg Tab 10 MG PO DAILY PRN for ALLERGIC REACTION, TAB Metoprolol Tartrate (Lopressor) (Lopressor) 50 Mg Tab 50 MG PO BID, TAB Multivitamins/Minerals (Mvi With Minerals) Tab 1 TAB PO QAM, TAB Discontinued Medications: Amlodipine Besylate (Norvasc) 5 Mg Tab 1 TAB PO DAILY for 30 Days, #30 TAB 0 Refills Aspirin (Aspirin Ec) 81 Mg Tab 81 MG PO QAM Celecoxib (CeleBREX) 200 Mg Cap 1 CAP PO HS for 30 Days, #30 CAP 2 Refills Coenzyme Q10 (Ubidecarenone) (Co Q-10) 150 Mg Cap 150 MG PO DAILY, CAP Hydrocodon/Acetaminophen 5MG/300MG (Vicodin (5MG/300MG)) 1 Tab Tab 1 TAB PO Q6H PRN for Pain, TAB Referrals At Discharge Follow up Referrals: Validation Software Facilitator Referral - Within a Month with Tariq Tolliver M.D. Surgery Referral - Within 1 Week with Venkat Macario M.D. Discharge Exam Physical Exam General Appearance: WD/WN, no apparent distress Eyes: normal inspection, sclerae normal Neck: trachea midline Respiratory/Chest: normal breath sounds, no respiratory distress, no accessory muscle use Cardiovascular: regular rate, rhythm, no edema, no murmur Abdomen: normal bowel sounds, soft, + tenderness (mild in RLQ w/o guarding) Extremities: non-tender, normal inspection, no pedal edema, no calf tenderness Neurologic/Psychiatric: alert, normal mood/affect, oriented x 3 Skin: normal color, warm/dry, no rash Review of Systems: Constitutional: No chills, No fever Eyes: No problem reported ENT: No problem reported Respiratory: No problem reported Cardiovascular: No chest pain, No palpitations Abdomen: + pain, No constipation, No diarrhea, No nausea, No vomiting Musculoskeletal: No problem reported Genitourinary - Female: No problem reported Neurologic: No problem reported Psychiatric: No problem reported Endocrine: No problem reported Hematologic / Lymphatic: No problem reported Integumentary: No problem reported Hospital Course The patient is a 81-year-old female who presented to the emergency department with family with complaints of worsening weakness and abdominal pain the past couple days. She had been seen in the emergency department the previous day for nausea and hypertension, was discharged home on amlodipine after being treated for hypertensive urgency. She did have a WBC count at that time of 17k but was thought that she may have a viral illness. On the day of admission, the daughter reported that patient was more altered mental status-copeland, often staring off with a blank expression on her face, and acting more confused. She woke up after a nap and when she tried to walk downstairs she became too weak and had sit down longterm downstairs to rest. When she was seen by EMS at home, she was found to be altered, and en route her pulse ox was in the 80s and improved with 2 L of oxygen. She was found to have a ruptured appendix on CT scan in the ER. She was tachycardic and was having some runs of NSVT in the ER. She was given serial amiodarone IV boluses of 150 mg 2, and then started on amiodarone drip with good response and heart rate and blood pressure control while in the emergency department. She was admitted to the ICU for further care. Serial cardiac enzymes were negative, and a 2-D echocardiogram with Dopplers showed mild LVH, hyperdynamic LV function and grade 1 diastolic dysfunction. Her amlodipine and metoprolol were held. Sepsis POA secondary to perforated appendix--Started on IV Cipro and Flagyl. Surgical consult with Dr. Patel. For cardiac clearance STAT ECHO was completed which determined hyperdynamic LV function, no WMA. Pt underwent open appendectomy on 11/01 with drain placed. Pt placed NPO, as pt developed abd pain , bloating, N/V on 11/03. KUB determined SBO. NGT placed. NGT removed on 11/05, jayjay clears and passing stool. SBO resolved Peritoneal cx growing bacteroides, diphtheroids Blood cultures with no growth Tolerating reg diet, afebrile, WBC count trending downward, Telly drain removed and doing very well, passing stool. Pain controlled with percocet. -continue pain control -bowel regimen -appreciate Surgery management -continue po Cipro and Flagyl for 4 more days through 11/12/16 -Follow up with Surgery/Dr. Macario in 1 week Symptomatic V. tach, PAF, Chronic diastolic CHF, HTN--for VT the patient was given serial amiodarone IV boluses of 150 mg 2, and then started on amiodarone drip with good response and heart rate and blood pressure control while in the emergency department. DCed amiodarone drip and started on IV metoprolol. Continued to have intermittent rapid A-fib. A-fib now resolved, back in NSR. CHADS2 score is 3. ECHO: * Sinus rhythm with occasional premature atrial complexes was present during the echocardiogram examination. * There is mild concentric left ventricular hypertrophy. * No regional wall motion abnormalities noted. * The left ventricle is hyperdynamic. * The qualitative LV Ejection Fraction = >70 %. * The right ventricle is normal in size and function. * Aortic valve sclerosis mild, without significant aortic valvular stenosis. * The anterior mitral valve is mildly calcified. * Significant mitral regurgitation is absent. * There is no mitral valve stenosis. * Grade I diastolic dysfunction, (abnormal relaxation pattern). -Appreciate cardiology recs -continue po diltiazem and metoprolol -needs anticoagulation when safe to do so from surgical standpoint--> Surgery says ok 24 hrs after drain removed -After discussion of risk/benefits/alt, pt agreed to start Eliquis -Follow up with Dr. Tolliver/Cardiology in 1 month Hypomagnesemia/hypophosphatemia - Replaced PRN in IV Hypercholesterolemia-restart Zetia 10 mg by mouth daily. Depression--restarted Cymbalta. Arthritis--d/c Celebrex now that on Eliquis DVT Proph-SCDs, Eliquis Dispo-FULL CODE to [facility] today Total Time Spent: Greater than 30 minutes This includes examination of the patient, discharge planning, medication reconciliation, and communication with other providers. Discharge Instructions Please refer to the electronic Patient Visit Report (Discharge Instructions) for additional information. Follow-Up PCP within 1 week Cardiology in 1 month Surgery in 1 week Additional Copies To Preston Moreno M.D.; Tariq Tolliver M.D.; Venkat Macario M.D.
--- NOTE | 2016-11-16 13:25 | Progress Note ---
Progress Note Date of Service Nov 16, 2016. Progress Note An preparation room worker consult was ordered on this patient but I did not see her before she left the preparation room worker care unit. The consult should have been cancelled but unfortunately was not. Please do not bill this patient for an preparation room worker consult.
[2017-01-17] MEDS ORDERED: PRT/40 PO (05:58)
== END 2016-11-08 14:28 | DRG 853 ==
LOC: ENRESERVTM → ENRESERVDT → EDUNIT# 18:22 → C.EDC 18:22 → EDBD 18:22 → C.MSICU 20:21 → EDBEDREQSVC 11-01 17:46 → C.2T 11-01 18:54
PROVIDERS: ADMIT Hospitalist; ATTEND Family Medicine
PROC: 0DTJ0ZZ Resection of Appendix, Open Approach (ICD-10-PCS; principal; 2016-11-01 08:30)
DX: A41.9 Sepsis, unspecified organism (principal); K35.2 Acute appendicitis with generalized peritonitis; J98.11 Atelectasis; I47.2 Ventricular tachycardia; K56.69 Other intestinal obstruction; I48.0 Paroxysmal atrial fibrillation; I50.9 Heart failure, unspecified; I10 Essential (primary) hypertension; M81.0 Age-related osteoporosis without current pathological fracture; Z82.49 Family history of ischemic heart disease and other diseases of the circulatory system; Z88.0 Allergy status to penicillin; G93.41 Metabolic encephalopathy; I50.32 Chronic diastolic (congestive) heart failure; E83.42 Hypomagnesemia; E83.39 Other disorders of phosphorus metabolism; M19.90 Unspecified osteoarthritis, unspecified site; F32.9 Major depressive disorder, single episode, unspecified; E78.00 Pure hypercholesterolemia, unspecified; R11.0 Nausea; Z88.1 Allergy status to other antibiotic agents

== ENCOUNTER → 2016-11-23 | Outpatient (CLI) | payer BC, OTHER ==
[~2016-11-23] MED LIST changes: -AMLO5TAB2 PO; +APIX1TAB3 PO; -ASPI81TA28 PO; -CLB/200 PO; -COEN150C PO; +CPR500 PO; +CRDCD180 PO; +DILT180C48 PO; +DULO-76 PO; -HYDR-3419 PO; +OXYC-57 PO; +PRT/40 PO; +PRT40 PO
[2016-11-23 16:52] LABS: BASO % 0.4 %; BASO ABS # 0.04 K/uL (0-0.2); COMPLETE YES; EOS % 1.7 %; IG% 0.2 %; LYMPH % 20.5 %; MEAN CELL VOLUME 97.3 fL (80-100); MEAN CORPUSCULAR HEMOGLOBIN 32.1 pg (25-34); MEAN PLATELET VOLUME 10.8 fL (7.4-10.4); MONO % 12.2 %; PLATELET COUNT 287 K/uL (130-400); RED BLOOD COUNT 4.11 M/uL (4.2-5.4); WHITE BLOOD COUNT 10.74 K/uL (4.8-10.8)
== END | disposition home or self-care (01) ==
LOC: C.LABBFT 17:27
PROVIDERS: ATTEND Internal Medicine
DX: D72.829 Elevated white blood cell count, unspecified (principal)

== ENCOUNTER 2017-01-17 04:40 | Emergency (ER) | payer BC ==
[~2017-01-17] VITALS: Ht 167.6 cm; Wt 66.7 kg
[~2017-01-17 04:40] MED LIST changes: -APIX1TAB3 PO; -DILT180C48 PO; -DULO-76 PO; -PRT/40 PO
[2017-01-17] MEDS ORDERED: SODIUM CHLORIDE 0.9% 1000ML 1,000 ML IV SCH (04:48)
[2017-01-17 04:58] LABS: BASO % 0.2 %; BASO ABS # 0.02 K/uL (0-0.2); COMPLETE YES; EOS % 1.7 %; HEMATOCRIT 46.1 % (37-47); IG% 0.1 %; LYMPH % 35.5 %; LYMPH ABS # 2.95 K/uL (1.2-3.4); MEAN CELL VOLUME 98.7 fL (80-100); MEAN CORPUSCULAR HEMOGLOBIN 32.8 pg (25-34); MEAN CORPUSCULAR HGB CONC 33.2 g/dl (32-36); MONO % 10.8 %; NEUT % 51.7 %; PLATELET COUNT 206 K/uL (130-400); RED BLOOD COUNT 4.67 M/uL (4.2-5.4)
[2017-01-17 04:59] VITALS: TEMP 36.7; Ht 167.6 cm; Wt 66.7 kg
[2017-01-17 05:04] VITALS: O2SAT 94
[2017-01-17 05:06] LABS: INR 1.1 (0.9-1.1); PARTIAL THROMBOPLASTIN RATIO 1.1; PROTHROMBIN TIME (PATIENT) 11.4 SECONDS (9.0-12.0)
[2017-01-17] MEDS ORDERED: LABETALOL HCL IV 5 MG/ML 20ML IV STA (05:06)
[2017-01-17 05:07] LABS: BUN/CREATININE RATIO 17.2 (10-20); CREATININE 0.88 mg/dl (0.60-1.20); POTASSIUM 3.9 mmol/L (3.5-5.1)
--- NOTE | 2017-01-17 05:29 | EMERGENCY ROOM VISIT NOTE ---
History Report prepared by Jorge: Curtis Waters Under the Supervision of: Dr. Claudia Robison M.D. First contact with patient: 04:48 Chief Complaint: NEURO SYMPTOMS Stated Complaint: NEURO SYMPTOMS Nursing Triage Summary: Pt presents ALS for evaluation s/p fall and neuro symptoms. Pt not feeling well past 2 days, this morning woke up on ground. New right sided facial droop and right sided weakness. History of Present Illness The patient is a 81 year old female who presents to the Emergency Room with complaints of sudden neuro symptoms starting around 0400 this morning. The patient states that she was not feeling well yesterday and went to bed, and when she woke up around 0400 to go to the bathroom she fell to the ground. The ambulance was then called. The patient had some right sided facial droop and weakness. The patient's last known well time is unknown. The patient denies any shortness of breath and chest pain. She does not know whether she uses blood thinners or not. The patient's daughter states that the patient was dizzy all day for the past two days, however all of her vitals were good. Additionally, the daughter states that that the patient's appendix ruptured in november, and she has a lump on her vagina. Source of History: patient Onset: 0400 Position: other (global) Quality: other (neuro symptoms) Timing: other (sudden) Associated Symptoms: + weakness, No SOB, No chest pain Note: Associated symptoms: Dizziness, right sided facial droop Review of Systems See HPI for pertinent positives & negatives. A total of 10 systems reviewed and were otherwise negative. Past Medical & Surgical Medical Problems: (1) A-fib (2) Altered mental status (3) Atrial fibrillation (4) CHF (congestive heart failure) (5) CHF (congestive heart failure) (6) Lumbar stenosis with neurogenic claudication (7) Osteoporosis (8) V tach Family History FH: heart disease Social History Smoking Status: Never Smoker Alcohol Use: occasionally Drug Use: none Marital Status: Housing Status: lives with significant other Occupation Status: unemployed Current/Historical Medications Scheduled Apixaban (Eliquis), 5 MG PO BID Diltiazem Hcl (Dilt-Xr), 180 MG PO DAILY Docusate Sodium (Colace), 1 CAP PO BID Duloxetine HCl (Duloxetine HCl), 40 MG PO DAILY Ezetimibe (Zetia), 10 MG PO QAM Metoprolol Tartrate (Lopressor) (Lopressor), 50 MG PO BID Multivitamins/Minerals (Mvi With Minerals), 1 TAB PO QAM Pantoprazole (Pantoprazole Sodium), 40 MG PO DAILY Allergies Coded Allergies: Amoxicillin (Verified Allergy, Intermediate, RASH, 11/05/16) Penicillins (Verified Allergy, Intermediate, RASH, 11/05/16) Physical Exam Vital Signs Date Time Temp Pulse Resp B/P Pulse Ox O2 Delivery O2 Flow Rate FiO2 01/17/17 06:20 70 18 200/83 96 01/17/17 05:45 176/105 95 Room Air 01/17/17 05:41 216/119 01/17/17 05:40 86 19 01/17/17 05:12 166/91 01/17/17 05:10 77 21 93 Room Air 01/17/17 05:05 215/106 01/17/17 05:04 94 Room Air 01/17/17 04:59 36.7 92 18 201/107 96 Room Air 01/17/17 04:58 201/107 01/17/17 04:51 80 01/17/17 04:43 184/98 Physical Exam Vital signs reviewed. General: Well-appearing female, in no significant distress. HEENT: No scleral icterus, PERRLA, neck supple. Atraumatic. Cardiovascular: Regular rate and rhythm, no extra sounds. Pulmonary: Clear to auscultation bilaterally, normal work of breathing. Abdomen: Soft, nontender, nondistended, positive bowel sounds. Musculoskeletal: Atraumatic, no peripheral edema. Neurologic: Weak bilateral motion picture critic strength but equal 3/5 triceps strength bilaterally. Full biceps strength bilaterally. Slight right upper extremity ataxia and mild drift in the right upper extremity. Answers all questions appropriately. Some slurred speech. Patient awake alert and oriented x 3. Cranial nerves 2 through 12 grossly intact. Skin: Warm, dry, no rash Medical Decision & Procedures ER Provider Diagnostic Interpretation: X-ray results as stated below per interpretation by me Chest 1 View: Mild pulmonary congestion. No focal lung consolidation. No pleural effusion. Radiology results as stated below per my review and radiologist interpretation: CT HEAD: No acute intracranial finding or significant change from prior CT 10/31/16 White matter hypodensities, which are nonspecific but most likely related to mild chronic small vessel ischemic changes. Mild global cerebral volume loss. Visualized paranasal sinuses and mastoid air cells are clear. Laboratory Results 01/17/17 04:45 Red Blood Count 4.67, Mean Corpuscular Volume 98.7, Mean Corpuscular Hemoglobin 32.8, Mean Corpuscular Hemoglobin Concent 33.2, Mean Platelet Volume 10.0, Neutrophils (%) (Auto) 51.7, Lymphocytes (%) (Auto) 35.5, Monocytes (%) (Auto) 10.8, Eosinophils (%) (Auto) 1.7, Basophils (%) (Auto) 0.2, Neutrophils # (Auto ) 4.28, Lymphocytes # (Auto) 2.95, Monocytes # (Auto) 0.90, Eosinophils # (Auto ) 0.14, Basophils # (Auto) 0.02 01/17/17 04:45 Test 01/17/17 04:45 01/17/17 05:07 01/17/17 05:15 White Blood Count 8.30 K/uL (4.8-10.8) Red Blood Count 4.67 M/uL (4.2-5.4) Hemoglobin 15.3 g/dL (12.0-16.0) Hematocrit 46.1 % (37-47) Mean Corpuscular Volume 98.7 fL (80-100) Mean Corpuscular Hemoglobin 32.8 pg (25-34) Mean Corpuscular Hemoglobin Concent 33.2 g/dl (32-36) Platelet Count 206 K/uL (130-400) Mean Platelet Volume 10.0 fL (7.4-10.4) Neutrophils (%) (Auto) 51.7 % Lymphocytes (%) (Auto) 35.5 % Monocytes (%) (Auto) 10.8 % Eosinophils (%) (Auto) 1.7 % Basophils (%) (Auto) 0.2 % Neutrophils # (Auto) 4.28 K/uL (1.4-6.5) Lymphocytes # (Auto) 2.95 K/uL (1.2-3.4) Monocytes # (Auto) 0.90 K/uL (0.11-0.59) Eosinophils # (Auto) 0.14 K/uL (0-0.5) Basophils # (Auto) 0.02 K/uL (0-0.2) RDW Standard Deviation 50.0 fL (36.4-46.3) RDW Coefficient of Variation 13.7 % (11.5-14.5) Immature Granulocyte % (Auto) 0.1 % Immature Granulocyte # (Auto) 0.01 K/uL (0.00-0.02) Prothrombin Time 11.4 SECONDS (9.0-12.0) Prothromb Time International Ratio 1.1 (0.9-1.1) Activated Partial Thromboplast Time 29.8 SECONDS (21.0-31.0) Partial Thromboplastin Ratio 1.1 Anion Gap 5.0 mmol/L (3-11) Est Creatinine Clear Calc Drug Dose 48.5 ml/min Estimated GFR () 72.4 Estimated GFR (Non- 62.5 BUN/Creatinine Ratio 17.2 (10-20) Calcium Level 9.0 mg/dl (8.5-10.1) Total Creatine Kinase 78 U/L (26-192) Creatine Kinase MB 1.5 ng/ml (0.5-3.6) Creatine Kinase MB Ratio 1.9 (0-3.0) Troponin I 0.093 ng/ml (0-0.045) Bedside Glucose 121 mg/dl (70-90) Urine Color YELLOW Urine Appearance TURBID (CLEAR) Urine pH 8.5 (4.5-7.5) Urine Specific [place] 1.010 (1.000-1.030) Urine Protein NEG (NEG) Urine Glucose (UA) NEG (NEG) Urine Ketones NEG (NEG) Urine Occult Blood 2+ (NEG) Urine Nitrite POS (NEG) Urine Bilirubin NEG (NEG) Urine Urobilinogen NEG (NEG) Urine Leukocyte Esterase LARGE (NEG) Urine WBC (Auto) >30 /hpf (0-5) Urine RBC (Auto) 10-30 /hpf (0-4) Urine Hyaline Casts (Auto) 0 /lpf (0-5) Urine Epithelial Cells (Auto) >30 /lpf (0-5) Urine Bacteria (Auto) 4+ (NEG) Urine Pathogenic Casts /lpf (0) Laboratory results per my review. Medications Administered Medications (Trade) Dose Ordered Sig/Jordan Route Start Time Stop Time Status Last Admin Dose Admin Sodium Chloride (Nss 1000ml) 1,000 ml @ 100 mls/hr Q10H IV 01/17/17 04:48 5/11/17 06:49 DC 01/17/17 04:48 100 MLS/HR ECG Indication: other (neuro symptoms) Rate (beats per minute): 84 Rhythm: sinus rhythm Findings: no acute ischemic change, no ectopy, other (Poor quality baseline for interpretation) ED Course 0448: Past medical records reviewed. The patient was evaluated in room B1. A complete history and physical examination was performed. I ordered Sodium Chloride 1000 ml @ 100 mls/hr IV 0506: Labetalol HCl 10mg IV 0513: I discussed the patient's case with Dr. Damon, Neurology [facility], and he is going to accept the patient as a transfer by helicopter. 0518 I reevaluated the patient, and her nasolabial folds are back 0620: The patient has been transferred Medical Decision Differential diagnosis: Etiologies such as metabolic, infection, hypo/hyperglycemia, electrolyte abnormalities, cardiac sources, intracerebral event, toxicologic, neurologic, as well as others were entertained. This patient was evaluated and appeared to be in no significant distress. Physical examination is consistent with a right facial droop, right upper extremity drift and weakness. The patient seems to be cognizant of conversation. She is able to answer questions appropriately however she does have some slurred speech. A CT scan of the head was performed and is negative. The situation is unfortunate in that the timing of the symptoms is unclear. The patient is not a candidate for IV TPA at this time. I did contact Dr. Simon at [facility] via tele-stroke who has recommended transfer to their facility for interventional evaluation. The patient is aware of the plan and agrees. She was transferred via helicopter. I did speak with the patient's daughter by telephone. Case management has been consulted to help make arrangements for her demented who is at the bedside. Consults Time Called: [phone] Consulting Physician: Dr. Damon, Neurology [facility] Returned Call: [phone] I discussed the patient's case with Dr. Damon, Neurology [facility] , and he is going to accept the patient as a transfer by helicopter. Impression Primary Impression: Stroke Critical Care I have personally spent greater than 30 minutes of critical care time in the direct management of this patient. This includes bedside care, interpretation of diagnostic studies, and testing, discussion with consultants, patient, and family members, and other required patient management activities. This 30 minutes is in excess of all separately billable procedures. Scribe Attestation The scribe's documentation has been prepared under my direction and personally reviewed by me in its entirety. I confirm that the note above accurately reflects all work, treatment, procedures, and medical decision making performed by me. Departure Information Dispostion Transfer Acute Care Facility Referrals Preston Moreno M.D. (PCP) Patient Instructions My [facility]
[2017-01-17 05:30] LABS: URINE APPEARANCE TURBID (CLEAR); URINE BILIRUBIN NEG (NEG); URINE COLOR YELLOW; URINE EPITHELIAL CELL AUTO >30 /lpf (0-5); URINE NITRITE POS (NEG); URINE PH 8.5 (4.5-7.5); UROBILINOGEN NEG (NEG); ZZURINE CULT IF INDIC CATH YES
[2017-01-17 05:33] LABS: MANUAL MICROSCOPIC REQUIRED? NO; REVIEW REQ? YES
[2017-01-17 05:33] LABS: CKMB/CK RATIO 1.9 (0-3.0)
[2017-01-17] MEDS ORDERED: APIX1TAB3 PO (05:57)
[2017-01-17] MEDS ORDERED: PANT40TA2 PO (05:58)
[2017-01-17] MEDS ORDERED: DILT180C48 PO (05:58)
[2017-01-17] MEDS ORDERED: DULO-76 PO (05:58)
[2017-01-17 06:20] VITALS: BP 200/83; PULSE 70; O2SAT 96
--- NOTE | 2017-01-17 06:28 | DIAGNOSTIC IMAGING REPORT ---
CT HEAD WITHOUT CONTRAST (CT) CLINICAL HISTORY: Stroke CHANGE IN MENTAL STATUS COMPARISON STUDY: 10/31/2016 TECHNIQUE: Axial CT of the brain is performed from the vertex to the skull base. IV contrast was not administered for this examination. CT DOSE: 537.48 mGy.cm FINDINGS: No intra or extra-axial mass lesions are visualized. There is no CT evidence of acute cortical infarction. There is no evidence of midline shift. There is no acute hemorrhage. No calvarial fractures are visualized. There are patchy white matter hypodensities likely on a small vessel basis. There is no evidence of pathologic ventricular dilatation. There is no evidence of acute sinusitis IMPRESSION: No acute intracranial findings Electronically signed by: John Paul Douglass M.D. 01/17/2017 6:26 AM Dictated Date/Time: 01/17/2017 6:25 AM
--- NOTE | 2017-01-17 07:09 | DIAGNOSTIC IMAGING REPORT ---
CHEST ONE VIEW PORTABLE CLINICAL HISTORY: Stroke COMPARISON STUDY: 11/02/2016 FINDINGS: The heart is at the upper limits of normal in size. There is aortic tortuosity. There is interstitial thickening slightly less prominent than on the prior study. There is no lobar consolidation.[ Increased markings within the right infrahilar region, likely represent a summation IMPRESSION: AP portable study. Mild interstitial thickening likely chronic. No evidence of lobar consolidation Electronically signed by: John Paul Douglass M.D. 01/17/2017 7:07 AM Dictated Date/Time: 01/17/2017 7:06 AM
== END 2017-01-17 06:21 | disposition short-term general hospital (02) ==
LOC: EDBD 04:40 → EDSEX 04:40 → C.EDB 04:41
DX: I63.9 Cerebral infarction, unspecified (principal); W19.XXXA Unspecified fall, initial encounter; I48.91 Unspecified atrial fibrillation; R41.82 Altered mental status, unspecified; I50.9 Heart failure, unspecified; M81.0 Age-related osteoporosis without current pathological fracture; M99.73 Connective tissue and disc stenosis of intervertebral foramina of lumbar region; Z82.49 Family history of ischemic heart disease and other diseases of the circulatory system

== ENCOUNTER → 2017-03-19 | Outpatient (CLI) | payer BC ==
[~2017-03-19] MED LIST changes: +APIX1TAB3 PO; -CLR10 PO; -CPR500 PO; -CRDCD180 PO; +DILT180C48 PO; -DULO-24 PO; +DULO-76 PO; -OXYC-57 PO; +PRT/40 PO; -PRT40 PO
[2017-03-19 17:27] LABS: URINE APPEARANCE CLEAR (CLEAR); URINE BILIRUBIN NEG (NEG); URINE COLOR YELLOW; URINE EPITHELIAL CELL AUTO >30 /lpf (0-5); URINE NITRITE NEG (NEG); URINE PH 6.5 (4.5-7.5); URINE SPECIFIC GRAVITY 1.021 (1.000-1.030); UROBILINOGEN NEG (NEG)
[2017-03-19 17:36] LABS: MANUAL MICROSCOPIC REQUIRED? NO; REVIEW REQ? NO
== END | disposition home or self-care (01) ==
LOC: C.LABBFT 17:53
PROVIDERS: ATTEND Internal Medicine
DX: N32.81 Overactive bladder (principal)

== ENCOUNTER → 2017-04-17 | Outpatient (CLI) | payer BC ==
--- NOTE | 2017-04-17 12:24 | MAMMOGRAPHY REPORT ---
BILATERAL DIGITAL DIAGNOSTIC MAMMOGRAM TOMOSYNTHESIS WITH CAD AND TARGETED RIGHT ULTRASOUND: 04/17/2017 CLINICAL HISTORY: The patient reports that she had a fall approximately 3-4 weeks ago and her entire right breast was bruised. She reports a palpable lump in the right breast. TECHNIQUE: Breast tomosynthesis in addition to standard 2D mammography was performed. Current study was also evaluated with a Computer Aided Detection (CAD) system. Bilateral CC and MLO 2-D and tomosy nthesis images were obtained. COMPARISON: Comparison is made to exam dated: 04/06/2010 mammogram - [facility]. BREAST COMPOSITION: There are scattered areas of fibroglandular density in both breasts. FINDINGS: A triangle marker schroeder the site of the palpable lump in the right 12:00 breast. At the s ite of the palpable lump there is a large focal asymmetry which is ill-defined and therefore difficul t to measure but measures at least 5 cm on the MLO view. On the tomosynthesis images, multiple round circumscribed fat density masses are seen within the asymmetry, consistent with benign oil cysts fro m fat necrosis. Mild diffuse right breast skin thickening is noted, which may related to the recent injury. The remainder of both breasts demonstrate no suspicious masses, calcifications, or areas of architectural distortion. Scattered benign-appearing calcifications are stable. Targeted ultrasound was performed of the area of the palpable lump pointed out by the patient in the right breast at 12:00, centered around 5 cm from the nipple. There are numerous anechoic circumscrib ed masses seen throughout the region, consistent with oil cysts from fat necrosis. Surrounding hyper echoic tissue is also seen. There is also hypoechoic shadowing seen in the posterior tissues in this region which makes evaluation of the deeper tissues difficult on ultrasound. However, the mammograp hic and sonographic features are suggestive of fat necrosis related to the patient's recent injury. IMPRESSION: ACR-BI-RADS CATEGORY 3: PROBABLY BENIGN, TARGETED ULTRASOUND ACR-BI-RADS CATEGORY 3: PRO BABLY BENIGN Large focal asymmetry in the right 12:00 at the site of the palpable lump, with mixed echogenicity ti ssue including oil cysts seen in this region on ultrasound. Findings are probably benign and likely represent fat necrosis related to the recent right breast injury. Recommend follow-up diagnostic mando osynthesis mammograms and possible ultrasound of the right breast in 6 months to ensure resolution. The patient has been verbally notified of the results. Approximately 10% of breast cancers are not detected with mammography. A negative mammographic report should not delay biopsy if a clinically suggestive mass is present. Lea Jimenez M.D. ah/:04/17/2017 12:03:15 Water Main Installer Helper: Shelby GREEN(Bell)(Cathy), [facility] letter sent: Follow Up Recommended 3 BI-RADS Code: ACR-BI-RADS Category 3: Probably Benign Ultrasound BI-RADS: ACR-BI-RADS Category 3: Pr obably Benign
== END | disposition home or self-care (01) ==
LOC: C.MAMM 08:51
PROVIDERS: ATTEND Physician Assistant Medical
DX: R92.8 Other abnormal and inconclusive findings on diagnostic imaging of breast (principal); N63 Unspecified lump in breast

== ENCOUNTER → 2017-06-11 | Outpatient (CLI) | payer BC ==
[2017-06-11 12:26] LABS: BASO % 0.3 %; BASO ABS # 0.02 K/uL (0-0.2); COMPLETE YES; EOS % 1.4 %; HEMATOCRIT 47.8 % (37-47); IG% 0.2 %; LYMPH % 32.7 %; LYMPH ABS # 2.08 K/uL (1.2-3.4); MEAN CELL VOLUME 100.2 fL (80-100); MEAN CORPUSCULAR HEMOGLOBIN 31.2 pg (25-34); MEAN CORPUSCULAR HGB CONC 31.2 g/dl (32-36); MEAN PLATELET VOLUME 10.7 fL (7.4-10.4); MONO % 11.9 %; NEUT % 53.5 %; PLATELET COUNT 199 K/uL (130-400); RED BLOOD COUNT 4.77 M/uL (4.2-5.4); WHITE BLOOD COUNT 6.36 K/uL (4.8-10.8)
[2017-06-11 12:56] LABS: BLOOD UREA NITROGEN 23 mg/dl (7-18); BUN/CREATININE RATIO 32.3 (10-20); CALCIUM 9.2 mg/dl (8.5-10.1); CARBON DIOXIDE 29 mmol/L (21-32); CHLORIDE 106 mmol/L (98-107); CREATININE 0.72 mg/dl (0.60-1.20); GLUCOSE 113 mg/dl (70-99); POTASSIUM 4.7 mmol/L (3.5-5.1); SODIUM 143 mmol/L (136-145)
[2017-06-11 13:14] LABS: ALB/GLOB RATIO 1.1 (0.9-2); ALKALINE PHOSPHATASE 93 U/L (45-117); ALT/SGPT 35 U/L (12-78); AST/SGOT 24 U/L (15-37); CHOLESTEROL 122 mg/dl (0-200); CHOLESTEROL/HDL RATIO 1.9; HDL CHOLESTEROL 65 mg/dl; LDL CHOLESTEROL CALCULATED 42 mg/dl; THYROID STIMULATING HORMONE 0.681 uIu/ml (0.300-4.500); TRIGLYCERIDES 74 mg/dl (0-150); VERY LOW DENSITY LIPOPROT CALC 15 mg/dl
== END | disposition home or self-care (01) ==
LOC: C.LABBFT 09:14
PROVIDERS: ATTEND Internal Medicine
DX: G62.9 Polyneuropathy, unspecified (principal); E55.9 Vitamin D deficiency, unspecified; R73.03 Prediabetes

== ENCOUNTER → 2017-08-06 | Outpatient (CLI) | payer BC ==
[~2017-08-06] MED LIST changes: +PANT40TA2 PO; -PRT/40 PO
== END | disposition home or self-care (01) ==
LOC: C.LABBFT 10:58
PROVIDERS: ATTEND Internal Medicine Cardiovascular Disease
DX: I48.91 Unspecified atrial fibrillation (principal)

== ENCOUNTER → 2017-10-18 | Outpatient (CLI) | payer BC ==
--- NOTE | 2017-10-18 15:27 | MAMMOGRAPHY REPORT ---
UNILATERAL RIGHT DIGITAL DIAGNOSTIC MAMMOGRAM TOMOSYNTHESIS WITH CAD AND TARGETED RIGHT ULTRASOUND: CLINICAL HISTORY: The patient presents for short interval follow-up of right breast findings which we re felt to represent fat necrosis due to a right breast injury. The patient can no longer feel the p reviously felt right breast lump. TECHNIQUE: Breast tomosynthesis in addition to standard 2D mammography was performed. Current study was also evaluated with a Computer Aided Detection (CAD) system. Right CC and MLO 2-D and tomosynthe sis images were obtained. COMPARISON: Comparison is made to exams dated: 04/17/2017 ultrasound, 04/17/2017 mammogram, and 0 mammogram - [facility]. BREAST COMPOSITION: There are scattered areas of fibroglandular density in the right breast. FINDINGS: The previously described large mixed density focal asymmetry seen within the right 12:00 b reast has significantly decreased in size compared to the April 2017 exam. Some residual asymmetrie s are seen within the region mammographically. The remainder of the right breast demonstrates no james picious masses, calcifications, or areas of architectural distortion. Targeted ultrasound was performed of the right 12:00 breast in the region of the mammographic asymmet ry. Multiple circumscribed subdermal anechoic masses are seen within the right 12:00 breast, 5-6 cm from the nipple, the largest measuring 5 mm, consistent with benign oil cysts. Ill-defined hypoechoi c shadowing is also noted in the right 12:00 breast, centered around 2-3 cm from the nipple, which is significantly decreased compared to the April 2017 exam. The areas ill-defined and difficult to me asure but measures at least 2.5 x 1.5 x 3.3 cm. This corresponds with the residual asymmetry and giv en the interval decrease is consistent with resolving fat necrosis. IMPRESSION: ACR BI-RADS CATEGORY 2: BENIGN, TARGETED ULTRASOUND ACR BI-RADS CATEGORY 2: BENIGN Significant interval decrease in mammographic focal asymmetry in the right 12:00 breast at the site o f a prior right breast injury with bruising. Given the interval decrease, findings are benign and co mpatible with resolving fat necrosis related to the prior right breast injury. There is no mammograp hic or targeted sonographic evidence of malignancy. Return to annual mammogram screening schedule is recommended unless otherwise clinically indicated. Also recommend continued clinical follow-up for t he palpable lump in the right 12:00 breast region which the patient can no longer feel. The patient has been verbally notified of the results. Approximately 10% of breast cancers are not detected with mammography. A negative mammographic report should not delay biopsy if a clinically suggestive mass is present. Lea Jimenez M.D. ah/:10/18/2017 11:20:15 Power Driven Brush Maker: Shelby GREEN(Bell)(Cathy), [facility] letter sent: Normal 1/2 BI-RADS Code: ACR BI-RADS Category 2: Benign Ultrasound BI-RADS: ACR BI-RADS Category 2: Benign
== END | disposition home or self-care (01) ==
LOC: C.MAMM 10:25
PROVIDERS: ATTEND Physician Assistant Medical
DX: R92.8 Other abnormal and inconclusive findings on diagnostic imaging of breast (principal); N64.89 Other specified disorders of breast

== ENCOUNTER → 2017-10-18 | Outpatient (CLI) | payer BC ==
--- NOTE | 2017-10-18 12:38 | DIAGNOSTIC IMAGING REPORT ---
ULTRASOUND OF THE CAROTID ARTERIES CLINICAL HISTORY: Cerebral infarction COMPARISON STUDY: None. TECHNIQUE: Real-time, grayscale, and color Doppler sonography of the carotid arteries was performed. Imaging reviewed in the transverse and longitudinal planes. NASCET criteria was utilized for stenosis calcification. FINDINGS: There is extensive atherosclerotic plaque present at the right carotid bulb. The peak systolic velocity within the right internal carotid artery is 139 cm/sec. There is no diastolic flow. The vessel "petered out", and no flow is visualized within the mid to distal right internal carotid. The systolic velocity ratio of right internal to common carotid artery is 0.9. The peak systolic velocity within the left internal carotid artery is 108 cm/sec. The systolic velocity ratio left internal to common carotid artery is 1.3. Antegrade flow is seen in the vertebral arteries. The external carotid arteries are patent. Blood pressure in the right arm measured 162 mm/Hg. Blood pressure in the left arm measured 171 mm/Hg. IMPRESSION: 1. 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 CT angiography might be considered in follow-up for further evaluation. 2. No evidence of hemodynamically significant left internal carotid artery stenosis Electronically signed by: John Paul Douglass M.D. 10/18/2017 12:37 PM Dictated Date/Time: 10/18/2017 12:31 PM
== END | disposition home or self-care (01) ==
LOC: C.ULTR 11:22
PROVIDERS: ATTEND Psychiatry & Neurology Neurology
DX: I63.312 Cerebral infarction due to thrombosis of left middle cerebral artery (principal); I65.21 Occlusion and stenosis of right carotid artery; E78.2 Mixed hyperlipidemia

== ENCOUNTER 2018-04-20 16:59 | Inpatient (IN) | payer BC, OTHER ==
[~2018-04-20] VITALS: Ht 167.6 cm; Wt 62.4 kg
[~2018-04-20 16:59] MED LIST changes: -MULT-513 PO
[2018-04-20] MEDS ORDERED: ACETAMINOPHEN 500 MG TAB PO STA (17:09)
[2018-04-20] MEDS ORDERED: ATOR-22 PO (17:24)
[2018-04-20] MEDS ORDERED: TPRSR/100 PO (17:24)
[2018-04-20] MEDS ORDERED: DIGO30TA PO (17:24)
[2018-04-20] MEDS ORDERED: EZET10TA66 PO (17:24)
[2018-04-20] MEDS ORDERED: CYM20 PO (17:24)
[2018-04-20] MEDS ORDERED: MIRA100T PO (17:24)
[2018-04-20] MEDS ORDERED: ASPI81TA28 PO (17:26)
[2018-04-20 17:41] LABS: BASO % 0.3 %; BASO ABS # 0.02 K/uL (0-0.2); EOS % 1.5 %; EOS ABS # 0.11 K/uL (0-0.5); HEMATOCRIT 43.9 % (37-47); HEMOGLOBIN 14.6 g/dL (12.0-16.0); IG# 0.02 K/uL (0.00-0.02); LYMPH % 26.9 %; LYMPH ABS # 1.91 K/uL (1.2-3.4); MEAN CELL VOLUME 97.8 fL (80-100); MEAN CORPUSCULAR HEMOGLOBIN 32.5 pg (25-34); MEAN CORPUSCULAR HGB CONC 33.3 g/dl (32-36); MEAN PLATELET VOLUME 10.6 fL (7.4-10.4); MONO % 12.3 %; MONO ABS # 0.87 K/uL (0.11-0.59); NEUT % 58.7 %; NEUT ABS # 4.17 K/uL (1.4-6.5); PLATELET COUNT 165 K/uL (130-400); RED CELL DISTRIBUTION WIDTH CV 13.5 % (11.5-14.5); RED CELL DISTRIBUTION WIDTH SD 47.7 fL (36.4-46.3)
[2018-04-20 18:11] LABS: CALCIUM 8.9 mg/dl (8.5-10.1); CREATININE 0.84 mg/dl (0.60-1.20); POTASSIUM 3.8 mmol/L (3.5-5.1)
--- NOTE | 2018-04-20 18:37 | DIAGNOSTIC IMAGING REPORT ---
R KNEE 3 VIEWS CLINICAL HISTORY: Right knee pain and swelling. COMPARISON: None FINDINGS: Alignment of the right knee is anatomic with exception of slight lateral patellar tilt. No acute fracture is identified. There is a moderate to large right knee joint effusion. Minimal narrowing of the lateral patellofemoral compartment is noted. IMPRESSION: 1. No acute fracture. 2. Moderate to large right knee joint effusion. 3. Mild osteoarthritis of the right knee. Electronically signed by: Cornelio Davison M.D. 04/20/2018 6:36 PM Dictated Date/Time: 04/20/2018 6:29 PM
--- NOTE | 2018-04-20 19:05 | EMERGENCY ROOM VISIT NOTE ---
History First contact with patient: 17:02 Chief Complaint: KNEEPAIN Stated Complaint: R KNEE PAIN History of Present Illness 82 year old female with history of afib, htn, and stroke presents with sudden onset after waking from a nap for right knee pain. Denies any trauma. No swelling here. Compliant with her anti-coag ablation, Eliquis. Did not take anything for pain. Also endorses pain predominantly with movement of the knee and into the distal thigh. Does complain of muscle cramping here. No hip pain. No numbness or tingling. No other complaint. No fever. No history of issues with this knee. No replacement prior. Symptoms are constant again exacerbated by movement. Source of History: patient Onset: 1 hr ago Position: knee (right) Symptom Intensity: moderate Quality: cramping Timing: constant Modifying Factors (Worsening): exertion Modifying Factors (Relieving): rest Associated Symptoms: No fevers, No abdominal pain Review of Systems See HPI for pertinent positives and negatives. A total of ten systems were reviewed and were otherwise negative. Past Medical/Surgical History Medical Problems: (1) A-fib (2) Altered mental status (3) Atrial fibrillation (4) CHF (congestive heart failure) (5) CHF (congestive heart failure) (6) Lumbar stenosis with neurogenic claudication (7) Osteoporosis (8) V tach Family History FH: heart disease Social History Smoking Status: Never Smoker Alcohol Use: occasionally Drug Use: none Marital Status: Housing Status: lives with significant other Occupation Status: unemployed Current/Historical Medications Scheduled Apixaban (Eliquis), 5 MG PO BID Aspirin (Aspirin Ec), 81 MG PO DAILY Atorvastatin (Lipitor), 20 MG PO HS Digoxin (Digitek), 0.125 MG PO DAILY Duloxetine HCl (Duloxetine HCl), 20 MG PO DAILY Ezetimibe (Ezetimibe), 10 MG PO QAM Metoprolol Succinate (Metoprolol Succinate ER), 100 MG PO BID Mirabegron (Myrbetriq Er), 25 MG PO DAILY Multivitamins/Minerals (Mvi With Minerals), 1 TAB PO QAM Physical Exam Vital Signs Date Time Temp Pulse Resp B/P (MAP) Pulse Ox O2 Delivery O2 Flow Rate FiO2 04/20/18 19:48 67 25 210/98 94 Room Air 04/20/18 18:22 68 04/20/18 17:54 67 16 176/74 94 Room Air 04/20/18 17:23 94 Room Air 04/20/18 17:16 36.9 66 18 204/122 94 Room Air Physical Exam GENERAL: Awake, alert, well-appearing HENT: Normocephalic, atraumatic. Oropharynx unremarkable. EYES: Normal conjunctiva. Sclera non-icteric. NECK: Supple. No nuchal rigidity. RESPIRATORY: Clear to auscultation. No wheezes. Normal respiratory effort. CARDIAC: Normal rate. Extremities warm and well perfused. Regular rhythm GI: Soft, non-distended. No tenderness to palpation. No rebound or guarding. RECTAL: Deferred. MUSCULOSKELETAL: Atraumatic. Chest examination reveals no tenderness. Leg as below. LOWER EXTREMITIES: Calves are equal size bilaterally and non-tender. Right knee not warm or erythematous quality. Pain with passive range of motion of the right knee. No hip or ankle or calf pain. Muscular tenderness of the distal posterior thigh into the posterior knee. No LLE tenderness or redness. NEURO: Normal sensorium. No sensory or motor deficits noted. Slight right sided facial droop - she states chronic. SKIN: Warm and dry. No rash or jaundice noted. Medical Decision & Procedures Laboratory Results 04/20/18 17:35 Red Blood Count 4.49, Mean Corpuscular Volume 97.8, Mean Corpuscular Hemoglobin 32.5, Mean Corpuscular Hemoglobin Concent 33.3, Mean Platelet Volume 10.6, Neutrophils (%) (Auto) 58.7, Lymphocytes (%) (Auto) 26.9, Monocytes (%) (Auto) 12.3, Eosinophils (%) (Auto) 1.5, Basophils (%) (Auto) 0.3, Neutrophils # (Auto ) 4.17, Lymphocytes # (Auto) 1.91, Monocytes # (Auto) 0.87, Eosinophils # (Auto ) 0.11, Basophils # (Auto) 0.02 04/20/18 17:35 Test 04/20/18 17:35 04/20/18 18:30 White Blood Count 7.10 K/uL (4.8-10.8) Red Blood Count 4.49 M/uL (4.2-5.4) Hemoglobin 14.6 g/dL (12.0-16.0) Hematocrit 43.9 % (37-47) Mean Corpuscular Volume 97.8 fL (80-100) Mean Corpuscular Hemoglobin 32.5 pg (25-34) Mean Corpuscular Hemoglobin Concent 33.3 g/dl (32-36) Platelet Count 165 K/uL (130-400) Mean Platelet Volume 10.6 fL (7.4-10.4) Neutrophils (%) (Auto) 58.7 % Lymphocytes (%) (Auto) 26.9 % Monocytes (%) (Auto) 12.3 % Eosinophils (%) (Auto) 1.5 % Basophils (%) (Auto) 0.3 % Neutrophils # (Auto) 4.17 K/uL (1.4-6.5) Lymphocytes # (Auto) 1.91 K/uL (1.2-3.4) Monocytes # (Auto) 0.87 K/uL (0.11-0.59) Eosinophils # (Auto) 0.11 K/uL (0-0.5) Basophils # (Auto) 0.02 K/uL (0-0.2) RDW Standard Deviation 47.7 fL (36.4-46.3) RDW Coefficient of Variation 13.5 % (11.5-14.5) Immature Granulocyte % (Auto) 0.3 % Immature Granulocyte # (Auto) 0.02 K/uL (0.00-0.02) Anion Gap 7.0 mmol/L (3-11) Est Creatinine Clear Calc Drug Dose 34.1 ml/min Estimated GFR () 76.1 Estimated GFR (Non- 65.6 BUN/Creatinine Ratio 18.6 (10-20) Uric Acid 4.2 mg/dl (2.6-7.2) Calcium Level 8.9 mg/dl (8.5-10.1) Magnesium Level 1.9 mg/dl (1.8-2.4) Total Bilirubin 0.4 mg/dl (0.2-1) Direct Bilirubin 0.1 mg/dl (0-0.2) Aspartate Amino Transf (AST/SGOT) 23 U/L (15-37) Alanine Aminotransferase (ALT/SGPT) 40 U/L (12-78) Alkaline Phosphatase 70 U/L (45-117) C-Reactive Protein < 0.29 mg/dl (0-0.29) Total Protein 7.0 gm/dl (6.4-8.2) Albumin 3.8 gm/dl (3.4-5.0) Thyroid Stimulating Hormone (TSH) 0.608 uIu/ml (0.300-4.500) Urine Color YELLOW Urine Appearance CLEAR (CLEAR) Urine pH 7.5 (4.5-7.5) Urine Specific [place] 1.009 (1.000-1.030) Urine Protein NEG (NEG) Urine Glucose (UA) NEG (NEG) Urine Ketones NEG (NEG) Urine Occult Blood TRACE (NEG) Urine Nitrite NEG (NEG) Urine Bilirubin NEG (NEG) Urine Urobilinogen NEG (NEG) Urine Leukocyte Esterase SMALL (NEG) Urine WBC (Auto) 10-30 /hpf (0-5) Urine RBC (Auto) 0-4 /hpf (0-4) Urine Hyaline Casts (Auto) 0 /lpf (0-5) Urine Epithelial Cells (Auto) 10-20 /lpf (0-5) Urine Bacteria (Auto) NEG (NEG) Medications Administered Medications (Trade) Dose Ordered Sig/Jordan Route Start Time Stop Time Status Last Admin Dose Admin Acetaminophen (Tylenol Tab) 1,000 mg NOW STAT PO 04/20/18 17:09 04/20/18 17:13 DC 04/20/18 17:54 1,000 MG ED Course 1705: The patient was evaluated in room C6. A complete history and physical exam was performed. 1900: Reevaluated. Nursing attempted to have patient use bedside commode without success. Discussed with patient and family members findings. Hospitalist paged. Medical Decision Differential diagnosis: Etiologies such as DVT, musculoskeletal, infection, joint effusion, trauma, lymphedema, idiopathic, CHF, as well as others were entertained. Presentations concerning for possible knee injury although atraumatic. X-rays of the knee were completed to exclude occult fracture. Some edema surrounding the knee but not warm and I doubt infection. Acute onset also leans against this. Is on anticoagulation and could be a bit of a hemarthrosis. Electrolytes and basic blood work were completed; excluding significant electrolyte abnormalities to cause the muscle spasm component of it. Intact neurologically and do not believe this is an ischemic limb. Already on anticoagulation and doubt this is DVT. At neurological baseline from prior stroke. Acute hypertension likely secondary to pain. X-ray shows no acute fracture but evidence of knee effusion. Again doubt infection here. No leukocytosis. UA questionable but no symptoms. Could be reactive to small trauma from sleep that is unnoticed versus mild hemorrhage. Is not warm and I have lower suspicion that this represents acute gout or pseudogout. Attempted ambulation here but difficulty with this and she is unable to walk. Lives at home by herself. Nearby family are sisters approximately her age. Given her amatory dysfunction believe that she would require inpatient observation and likely rehab; especially since she is on Eliquis. Patient agrees. Routine ortho consult would be appropriate in morning. Hospitalist to be contacted for admission. Medication Reconcilliation Current Medication List: was personally reviewed by me Blood Pressure Screening Patient's blood pressure: Elevated blood pressure Blood pressure disposition: Referred to PCP Impression Primary Impression: Knee effusion, right Additional Impressions: Ambulatory dysfunction Right knee pain Departure Information Dispostion Being Evaluated By Hospitalist Condition GOOD Referrals Preston Moreno M.D. (PCP) Patient Instructions [facility] Problem Qualifiers Additional Impressions: Right knee pain Chronicity: acute Qualified Codes: M25.561 - Pain in right knee
[2018-04-20] MEDS ORDERED: MULT-513 PO (19:38)
[2018-04-20] MEDS ORDERED: ONDANSETRON INJ 2 MG/ML 2 ML VIAL IV PRN (20:00)
[2018-04-20] MEDS ORDERED: ACETAMINOPHEN 325 MG TAB PO PRN (20:00)
[2018-04-20 20:01] LABS: ALBUMIN 3.8 gm/dl (3.4-5.0); ALKALINE PHOSPHATASE 70 U/L (45-117); ALT/SGPT 40 U/L (12-78); AST/SGOT 23 U/L (15-37); URIC ACID 4.2 mg/dl (2.6-7.2)
[2018-04-20] MEDS ORDERED: MoRPHine SULFATE 2 MG/ML CARP IV PRN (20:15)
[2018-04-20] MEDS ORDERED: APIXABAN 5 MG TAB PO SCH (21:00)
[2018-04-20 21:03] VITALS: BP 229/96; PULSE 64; TEMP 36.9; O2SAT 96; BMI 14.4; BMI 21.7; BMI 22.2
--- NOTE | 2018-04-20 21:07 | Family Medicine Progress Note ---
Progress Note Date of Service Apr 20, 2018. Subjective Pt evaluation today including: conversation w/ patient, physical exam, chart review, lab review, review of studies Pain: Right knee pain 06/18 Voiding: no voiding problems, no incontinence The patient is a 82-year-old female with a past medical history of hyperlipidemia, atrial fibrillation, and CVA 1 year ago on Eliquis that presents with right-sided knee pain. The patient took a nap earlier this afternoon and when she awoke she had excruciating right knee pain and was unable to ambulate. The patient denies any injury or extensive use of the knee this morning, although her daughter states that she did do a lot of walking yesterday. She denies any knowledge of trauma, redness, or any other sort of injury to the right knee. The patient denies any fevers, chills, sweats, or any other systemic symptoms. The patient has been using a cane since experiencing her stroke, although she has been able to ambulate on her own. The patient does live at home alone at this time, and is unable to ambulate on her own. She denies any knowledge of tick bites or any previous history of tickborne illnesses. Constitutional: No fever, No chills, No sweats, No fatigue Respiratory: No cough, No sputum, No wheezing, No shortness of breath Cardiovascular: No chest pain, No edema, No palpitations Abdomen: No pain, No nausea, No vomiting, No diarrhea, No constipation Musculoskeletal: + joint pain (Right Knee), + swelling, No calf pain Female : No dysuria, No urinary frequency Neurologic: + balance problems, No memory loss, No weakness Medications Current Inpatient Medications Medications (Trade) Dose Ordered Sig/Jordan Route Start Time Stop Time Status Last Admin Dose Admin Acetaminophen (Tylenol Tab) 650 mg Q4H PRN PO 04/20/18 20:00 05/20/18 19:59 Ondansetron HCl (Zofran Inj) 4 mg Q6H PRN IV 04/20/18 20:00 05/20/18 19:59 Apixaban (Eliquis) 5 mg BID PO 04/20/18 21:00 05/20/18 20:59 Aspirin (Ecotrin Tab) 81 mg DAILY PO 04/21/18 09:00 05/21/18 08:59 Atorvastatin Calcium (Lipitor Tab) 20 mg HS PO 04/20/18 21:00 05/20/18 20:59 Digoxin (Lanoxin Tab) 0.125 mg DAILY PO 04/21/18 09:00 05/21/18 08:59 UNV Duloxetine HCl (Cymbalta Cap) 20 mg DAILY PO 04/21/18 09:00 05/21/18 08:59 EZETIMIBE (Zetia Tab) 10 mg QAM PO 04/21/18 09:00 05/21/18 08:59 Mirabegron (Myrbetriq Er) 25 mg DAILY PO 04/21/18 09:00 05/21/18 08:59 Multivitamins/ Minerals (Multivitamin W/ Minerals Tab) 1 tab QAM PO 04/21/18 09:00 05/21/18 08:59 Metoprolol Succinate (Toprol Xl Tab) 100 mg BID PO 04/20/18 21:00 05/20/18 20:59 Ketorolac Tromethamine (Toradol Inj) 15 mg Q6H PRN IV 04/20/18 20:15 04/25/18 20:14 UNV Objective Vital Signs Date Time Temp Pulse Resp B/P (MAP) Pulse Ox O2 Delivery O2 Flow Rate FiO2 04/20/18 19:48 67 25 210/98 94 Room Air 04/20/18 18:22 68 04/20/18 17:54 67 16 176/74 94 Room Air 04/20/18 17:23 94 Room Air 04/20/18 17:16 36.9 66 18 204/122 94 Room Air Physical Exam General Appearance: WD/WN, no apparent distress Eyes: normal inspection, sclerae normal Neck: supple, no carotid bruits Respiratory/Chest: chest non-tender, lungs clear, normal breath sounds Cardiovascular: regular rate, rhythm, no edema, no gallop, no murmur Abdomen: normal bowel sounds, non tender, soft Extremities: + swelling, + pertinent finding (Right sided knee pain with palpable effusion. Tenderness to light palpation, unable to perform further knee exam due to exquisite tenderness) Neurologic/Psychiatric: alert, normal mood/affect, oriented x 3 Laboratory Results Results Past 24 Hours Test 04/20/18 17:35 04/20/18 18:30 Range/Units White Blood Count 7.10 4.8-10.8 K/uL Red Blood Count 4.49 4.2-5.4 M/uL Hemoglobin 14.6 12.0-16.0 g/dL Hematocrit 43.9 37-47 % Mean Corpuscular Volume 97.8 80-100 fL Mean Corpuscular Hemoglobin 32.5 25-34 pg Mean Corpuscular Hemoglobin Concent 33.3 32-36 g/dl Platelet Count 165 130-400 K/uL Mean Platelet Volume 10.6 7.4-10.4 fL Neutrophils (%) (Auto) 58.7 % Lymphocytes (%) (Auto) 26.9 % Monocytes (%) (Auto) 12.3 % Eosinophils (%) (Auto) 1.5 % Basophils (%) (Auto) 0.3 % Neutrophils # (Auto) 4.17 1.4-6.5 K/uL Lymphocytes # (Auto) 1.91 1.2-3.4 K/uL Monocytes # (Auto) 0.87 0.11-0.59 K/uL Eosinophils # (Auto) 0.11 0-0.5 K/uL Basophils # (Auto) 0.02 0-0.2 K/uL RDW Standard Deviation 47.7 36.4-46.3 fL RDW Coefficient of Variation 13.5 11.5-14.5 % Immature Granulocyte % (Auto) 0.3 % Immature Granulocyte # (Auto) 0.02 0.00-0.02 K/uL Sodium Level 141 136-145 mmol/L Potassium Level 3.8 3.5-5.1 mmol/L Chloride Level 104 98-107 mmol/L Carbon Dioxide Level 30 21-32 mmol/L Anion Gap 7.0 3-11 mmol/L Blood Urea Nitrogen 16 7-18 mg/dl Creatinine 0.84 0.60-1.20 mg/dl Est Creatinine Clear Calc Drug Dose 34.1 ml/min Estimated GFR () 76.1 Estimated GFR (Non- 65.6 BUN/Creatinine Ratio 18.6 10-20 Random Glucose 152 70-99 mg/dl Uric Acid 4.2 2.6-7.2 mg/dl Calcium Level 8.9 8.5-10.1 mg/dl Magnesium Level 1.9 1.8-2.4 mg/dl Total Bilirubin 0.4 0.2-1 mg/dl Direct Bilirubin 0.1 0-0.2 mg/dl Aspartate Amino Transf (AST/SGOT) 23 15-37 U/L Alanine Aminotransferase (ALT/SGPT) 40 12-78 U/L Alkaline Phosphatase 70 45-117 U/L C-Reactive Protein < 0.29 0-0.29 mg/dl Total Protein 7.0 6.4-8.2 gm/dl Albumin 3.8 3.4-5.0 gm/dl Thyroid Stimulating Hormone (TSH) 0.608 0.300-4.500 uIu/ml Urine Color YELLOW Urine Appearance CLEAR CLEAR Urine pH 7.5 4.5-7.5 Urine Specific [place] 1.009 1.000-1.030 Urine Protein NEG NEG Urine Glucose (UA) NEG NEG Urine Ketones NEG NEG Urine Occult Blood TRACE NEG Urine Nitrite NEG NEG Urine Bilirubin NEG NEG Urine Urobilinogen NEG NEG Urine Leukocyte Esterase SMALL NEG Urine WBC (Auto) 10-30 0-5 /hpf Urine RBC (Auto) 0-4 0-4 /hpf Urine Hyaline Casts (Auto) 0 0-5 /lpf Urine Epithelial Cells (Auto) 10-20 0-5 /lpf Urine Bacteria (Auto) NEG NEG Assessment and Plan The patient is a 82-year-old female with a past medical history of hyperlipidemia, atrial fibrillation, and CVA 1 year ago on Eliquis that presents with right-sided knee pain Right Knee Effusion - Right Knee X-Ray: 1. No acute fracture. 2. Moderate to large right knee joint effusion. 3. Mild osteoarthritis of the right knee. - Right Knee CT Pending - Holding home Eliquis and Aspirin for risk of hemarthrosis - Continue to follow CBC - Tylenol, Toradol, and Morphine PRN orders for pain - Bedrest at this time - PT/OT - Lyme IgM and IgG Atrial Fibrillation - Continue home Metoprolol and Digoxin CVA History - Hold home Eliquis Overactive Bladder - Continue home Mirabegron HLD - Continue home Lipitor and Ezetimibe DVT - SCDs Code Status - Full Resuscitation Disposition - Await PT/OT Recs - [employer] referral for SNF placement Resident Tracking Resident Involvement: Resident Care Provided Care Provided: Adult [facility] Medicine
[2018-04-20] MEDS ORDERED: IV FLUIDS COMPLETED PRN (21:15)
[2018-04-20] MEDS ORDERED: SENN-65 PO (21:31)
[2018-04-20] MEDS ORDERED: CHOL1000 PO (21:31)
[2018-04-20] MEDS: KETOROLAC TROMETHAMINE 15 MG/ML VIAL IV PRN (21:52)
--- NOTE | 2018-04-20 21:59 | DIAGNOSTIC IMAGING REPORT ---
CT OF THE RIGHT KNEE WITHOUT CONTRAST CLINICAL HISTORY: Right knee pain. COMPARISON STUDY: Right knee radiographs performed earlier today. TECHNIQUE: Axial images of the right knee were obtained without IV contrast. Sagittal and coronal reconstructed reviewed. FINDINGS: There is mild lateral patellar tilt. No acute fracture is identified. No suspicious osseous lesion is present. There is a large right knee joint effusion which contains foci of increased attenuation consistent with hemorrhage. A fat fluid level is present. There is mild to moderate tricompartmental osteoarthritis of the right knee. IMPRESSION: 1. No acute fracture. 2. Large right knee joint effusion consistent with a hemarthrosis. Electronically signed by: Cornelio Davison M.D. 04/20/2018 9:58 PM Dictated Date/Time: 04/20/2018 9:51 PM
[2018-04-20 22:16] VITALS: BP 169/82; PULSE 61
[2018-04-20] MEDS: ATORVASTATIN 20 MG TAB PO SCH (22:18)
[2018-04-20] MEDS: METOPROLOL SUCC 50MG EXT REL TAB PO SCH (22:23)
[2018-04-20 23:40] VITALS: BP 158/67; PULSE 63; TEMP 36.7; O2SAT 94
[2018-04-21] VITALS (7 sets, daily range): BP systolic 124–190; BP diastolic 68–78; PULSE 54–82; TEMP 36.4–36.8; O2SAT 94–97; Ht 167.6 cm; Wt 62.4 kg
[2018-04-21] MEDS: MoRPHine SULFATE 4 MG/ML 1 ML CARP\\VIAL IV PRN ×2 (02:07→07:30)
[2018-04-21] MEDS: KETOROLAC TROMETHAMINE 15 MG/ML VIAL IV PRN (06:03)
--- NOTE | 2018-04-21 07:01 | Family Medicine Progress Note ---
Progress Note Date of Service Apr 21, 2018. Subjective Pt evaluation today including: conversation w/ patient, physical exam, chart review, lab review, review of inpatient medication list Pain: Right knee pain reported PO Intake: Tolerating PO intake Voiding: no voiding problems Mr. Young reports she remains with right knee pain and swelling. She states that the pain is improved with the analgesic medications she has been receiving. She denies pain in any other joints. She states she has no history of trauma to the right knee and has never injured it before. She reports no other complaints. Constitutional: No fever, No chills Cardiovascular: No chest pain Abdomen: No pain, No nausea, No vomiting Musculoskeletal: + joint pain (right knee pain) All Other Systems: Reviewed and Negative Medications Current Inpatient Medications Medications (Trade) Dose Ordered Sig/Jordan Route Start Time Stop Time Status Last Admin Dose Admin Acetaminophen (Tylenol Tab) 650 mg Q4H PRN PO 04/20/18 20:00 05/20/18 19:59 Ondansetron HCl (Zofran Inj) 4 mg Q6H PRN IV 04/20/18 20:00 05/20/18 19:59 Atorvastatin Calcium (Lipitor Tab) 20 mg HS PO 04/20/18 21:00 05/20/18 20:59 04/20/18 22:18 20 MG Digoxin (Lanoxin Tab) 0.125 mg DAILY@1600 PO 04/21/18 16:00 05/21/18 15:59 04/21/18 16:29 0.125 MG Duloxetine HCl (Cymbalta Cap) 20 mg DAILY PO 04/21/18 09:00 05/21/18 08:59 04/21/18 09:16 20 MG EZETIMIBE (Zetia Tab) 10 mg QAM PO 04/21/18 09:00 05/21/18 08:59 04/21/18 09:15 10 MG Mirabegron (Myrbetriq Er) 25 mg DAILY PO 04/21/18 09:00 05/21/18 08:59 04/21/18 09:16 25 MG Multivitamins/ Minerals (Multivitamin W/ Minerals Tab) 1 tab QAM PO 04/21/18 09:00 05/21/18 08:59 04/21/18 09:16 1 TAB Metoprolol Succinate (Toprol Xl Tab) 100 mg BID PO 04/20/18 21:00 05/20/18 20:59 04/20/18 22:23 100 MG Ketorolac Tromethamine (Toradol Inj) 15 mg Q6H PRN IV 04/20/18 20:15 04/25/18 20:14 04/21/18 06:03 15 MG Miscellaneous (Iv Fluids Completed) 1 ea PRN PRN N/A 04/20/18 21:15 04/20/19 21:14 Morphine Sulfate (MoRPHine SULFATE INJ) 4 mg Q4H PRN IV 04/21/18 00:30 05/05/18 00:29 04/21/18 07:30 4 MG Docusate Sodium (coLACE CAP) 100 mg BID PO 04/21/18 21:00 05/21/18 20:59 Objective Vital Signs Date Time Temp Pulse Resp B/P (MAP) Pulse Ox O2 Delivery O2 Flow Rate FiO2 04/21/18 16:29 63 04/21/18 16:17 36.6 63 18 147/73 (97) 94 Room Air 04/21/18 09:14 54 145/71 (95) 04/21/18 07:30 Room Air 04/21/18 07:08 36.4 55 20 190/78 (115) 95 Room Air 04/21/18 06:23 36.8 82 18 124/74 (91) 94 Room Air 04/20/18 23:40 36.7 63 18 158/67 (97) 94 Room Air 04/20/18 23:40 94 Room Air 04/20/18 22:16 61 169/82 (111) 04/20/18 21:03 36.9 64 18 229/96 96 Room Air 04/20/18 20:43 36.9 67 25 210/98 94 04/20/18 19:48 67 25 210/98 94 Room Air 04/20/18 18:22 68 04/20/18 17:54 67 16 176/74 94 Room Air 04/20/18 17:23 94 Room Air 04/20/18 17:16 36.9 66 18 204/122 94 Room Air Physical Exam General Appearance: WD/WN, no apparent distress Respiratory/Chest: lungs clear, normal breath sounds, no respiratory distress, no accessory muscle use Cardiovascular: regular rate, rhythm, no edema, no murmur Abdomen: non tender, soft Extremities: + pertinent finding (Right knee swollen, particularly over medial aspect. Tender to palpation. Restricted ROM. No erythema. Slightly warm to touch.) Neurologic/Psychiatric: alert, normal mood/affect, oriented x 3 Laboratory Results Last 24 Hours Test 04/20/18 17:35 04/20/18 18:30 White Blood Count 7.10 K/uL Red Blood Count 4.49 M/uL Hemoglobin 14.6 g/dL Hematocrit 43.9 % Mean Corpuscular Volume 97.8 fL Mean Corpuscular Hemoglobin 32.5 pg Mean Corpuscular Hemoglobin Concent 33.3 g/dl Platelet Count 165 K/uL Mean Platelet Volume 10.6 fL Neutrophils (%) (Auto) 58.7 % Lymphocytes (%) (Auto) 26.9 % Monocytes (%) (Auto) 12.3 % Eosinophils (%) (Auto) 1.5 % Basophils (%) (Auto) 0.3 % Neutrophils # (Auto) 4.17 K/uL Lymphocytes # (Auto) 1.91 K/uL Monocytes # (Auto) 0.87 K/uL Eosinophils # (Auto) 0.11 K/uL Basophils # (Auto) 0.02 K/uL RDW Standard Deviation 47.7 fL RDW Coefficient of Variation 13.5 % Immature Granulocyte % (Auto) 0.3 % Immature Granulocyte # (Auto) 0.02 K/uL Erythrocyte Sedimentation Rate 5 mm/hr Sodium Level 141 mmol/L Potassium Level 3.8 mmol/L Chloride Level 104 mmol/L Carbon Dioxide Level 30 mmol/L Anion Gap 7.0 mmol/L Blood Urea Nitrogen 16 mg/dl Creatinine 0.84 mg/dl Est Creatinine Clear Calc Drug Dose 34.1 ml/min Estimated GFR () 76.1 Estimated GFR (Non- 65.6 BUN/Creatinine Ratio 18.6 Random Glucose 152 mg/dl Uric Acid 4.2 mg/dl Calcium Level 8.9 mg/dl Magnesium Level 1.9 mg/dl Total Bilirubin 0.4 mg/dl Direct Bilirubin 0.1 mg/dl Aspartate Amino Transf (AST/SGOT) 23 U/L Alanine Aminotransferase (ALT/SGPT) 40 U/L Alkaline Phosphatase 70 U/L C-Reactive Protein < 0.29 mg/dl Total Protein 7.0 gm/dl Albumin 3.8 gm/dl Thyroid Stimulating Hormone (TSH) 0.608 uIu/ml Lyme Disease IgG Antibody NEG Lyme Disease IgM Antibody NEG Urine Color YELLOW Urine Appearance CLEAR Urine pH 7.5 Urine Specific [place] 1.009 Urine Protein NEG Urine Glucose (UA) NEG Urine Ketones NEG Urine Occult Blood TRACE Urine Nitrite NEG Urine Bilirubin NEG Urine Urobilinogen NEG Urine Leukocyte Esterase SMALL Urine WBC (Auto) 10-30 /hpf Urine RBC (Auto) 0-4 /hpf Urine Hyaline Casts (Auto) 0 /lpf Urine Epithelial Cells (Auto) 10-20 /lpf Urine Bacteria (Auto) NEG Assessment and Plan Ms. Young is a 82 year old female with a past medical history of hyperlipidemia , atrial fibrillation, and CVA 1 year ago on Eliquis who presented with right- sided knee pain Right Knee Effusion - Right Knee CT showed right sided hemarthrosis - orthopedic surgery consulted, thank you for recs -> pt underwent arthrocentesis and steroid injection -> continue w/ice and compression -> weightbearing as tolerated -> f/u in office in 1 week's time - Tylenol, Toradol, and Morphine PRN orders for pain - PT/OT ordered - Lyme IgM and IgG negative Atrial Fibrillation - Continue home Metoprolol and Digoxin - restart eliquis tomorrow Hypertension - BP as high as 229/96 last night - likely secondary to pain as has downtrended after joint aspiration and injection - will continue to monitor CVA History - restart aspirin today Constipation - restart colace BID Overactive Bladder - Continue home Mirabegron HLD - Continue home Lipitor and Ezetimibe DVT - SCDs, restart eliquis tomorrow Code Status - Full Resuscitation Disposition - Await PT/OT Recs - [employer] referral for SNF placement. Referrals being [facility] to [facility] and [facility] for rehab. Resident Physician Supervision Note: I was present with the resident during the history and exam. I discussed the case with the resident and agree with the findings and plan as documented in the note. Any exceptions or clarifications are listed here: SUBJECTIVE She looks markedly better following her aspiration this afternoon. She is seated in the chair, compression and ice on her knee, and tells me the pain is much improved. EXAM Pleasant. No acute distress. Non toxic. Afebrile. Knee is wrapped (compression and ice). IMPRESSION/PLAN Hemarthrosis S/P aspiration Restart Eliquis in AM Restart ASA PT consult pending. Documented By: Lucio Colbert Resident Tracking Resident Involvement: Resident Care Provided Care Provided: Adult [facility] Medicine
[2018-04-21] MEDS: METOPROLOL SUCC 50MG EXT REL TAB PO SCH ×2 (09:00→20:51)
[2018-04-21] MEDS ORDERED: ASPIRIN 81 MG ECTAB PO SCH (09:00)
[2018-04-21] MEDS: EZETIMIBE 10MG TAB PO SCH (09:15)
[2018-04-21] MEDS: CEROVITE ADV FORMULA TAB PO SCH (09:16)
[2018-04-21] MEDS: MIRABEGRON ER 25 MG TAB PO SCH (09:16)
[2018-04-21] MEDS: DULOXETINE HCL 20 MG CAP PO SCH (09:16)
--- NOTE | 2018-04-21 14:47 | Consultant Recommendations ---
[place] Recommendations Date of Service Apr 21, 2018. [place] Recommendations R knee hemarthrosis S/P R knee aspiration. Recommend: Hermann wrap x 72hrs and then as needed Ice for 20min every hour or as needed WBAT R LE with assistive device as needed. (No restrictions- limitations based on pain and swelling) F/U with Mable Jessica PA-C on 04-28 at 1:45 at [facility]. [phone]
--- NOTE | 2018-04-21 15:07 | Medical Consult ---
Consultation Note Date of Service Apr 21, 2018. Consultation Note CHIEF COMPLAINT: Right knee pain. HISTORY OF PRESENT ILLNESS: Lucinda is a pleasant 82 year old female with 1 day history of severe right knee pain after waking up from a nap. She was brought to the ER by ambulance and admitted by the hospitalist service. She had a CVA approximately 1 year ago and is on Eliquis. X-rays and CT was obtained and showed an effusion. I was consulted to evaluate and treat. Past medical history: (1) A-fib (2) Altered mental status (3) CHF (congestive heart failure) (4) Lumbar stenosis with neurogenic claudication (5) Osteoporosis (6) V tach Past surgical history: Appendectomy 2017, Toenail surgery. MEDICATIONS: Apixaban (Eliquis), 5 MG PO BID Aspirin (Aspirin Ec), 81 MG PO DAILY Atorvastatin (Lipitor), 20 MG PO HS Digoxin (Digitek), 0.125 MG PO DAILY Duloxetine HCl (Duloxetine HCl), 20 MG PO DAILY Ezetimibe (Ezetimibe), 10 MG PO QAM Metoprolol Succinate (Metoprolol Succinate ER), 100 MG PO BID Mirabegron (Myrbetriq Er), 25 MG PO DAILY Multivitamins/Minerals (Mvi With Minerals), 1 TAB PO QAM ALLERGIES: Amoxicillin & PCN. FAMILY HISTORY: heart disease. SOCIAL HISTORY: Smoking Status: Never Smoker Alcohol Use: occasionally Drug Use: none Marital Status: Housing Status: lives with significant other Occupation Status: unemployed REVIEW OF SYSTEMS: A 10-point review of systems is noted in the ER medical record. PHYSICAL EXAM: Patient is in no acute distress breathing easily at 18 breaths per minute. The patient is resting comfortably in her hospital bed. They have an appropriate mood and affect. They weigh 62.4 kg And are 171 cm tall. Focusing on the patient's right lower extremity, 2+ DP pulse, sensation to light touch is intact, motor to the gastroc soleus, tibialis anterior, and EHL is 5/5. Able to perform straight leg raise. No joint line tenderness. Negative Miranda's. Ligamentous examination exhibits: Stable Janak, posterior drawer, varus and valgus stress at zero and 30. Range of motion 0- 30 degrees. + effusion. calf is soft and non-tender. RADIOGRAPHS: No acute fracture or dislocation. Mild OA. + Effusion. CT RLE: No acute fracture or dislocation. Mild OA. + Effusion. LABS: WBC 7.10, ESR 5, CRP <0.29, Lyme -. IMPRESSION: Right knee effusion, in a patient on Eliquis. PLAN: After a lengthy discussion with the patient and her daughter regarding my above findings, as well as reviewing her imaging, she was offerred to have her right knee aspirated and if fluid not concerning to have a cortisone injection. The risks of the injection were discussed include but not limited to : Infection, bleeding, nerve damage, and permanent skin changes at the site of the injection. The patient wished to proceed with the injection. They will keep track of how much pain relief they obtains and for how long. They will ice tonight and over the next several days and understands that they may be more painful due to a steroid flare. They will continue with ice and compression. She is weight bearing astolerated. She will follow up in the office with my PA Karina Jessica in 1 week. They understand that from an orthopaedic standpoint, she does not need to stay in hospital. The patient and her daughter understood all my instructions and explanation; all their questions were satisfactorily addressed. PROCEDURE: After obtaining verbal consent, performing a time-out, my PA under my direct supervision identifying the right knee as the correct knee for intra- articular aspiration and cortisone injection, the Superolateral portal area was palpated and marked. This area was prepped with Betadine, followed by ethyl chloride spray and alcohol wipe. An 18 gauge needle was used to aspirate 20 ml of bloody fluid. Then, a combination of 2 mL of 1% lidocaine plain plus 2 mL of 0.5% Marcaine plain plus 1 mL of 40 mg of Depo-Medrol were easily injected. The patient noted immediate relief with improved ROM and ability to perform a straigh leg raise. The area was cleaned and dried and an RONNA bandage was placed to compress the knee. The patient will follow all my above-noted instructions. Thank you for allowing me to participate in Lucinda's care.
[2018-04-21] MEDS: DIGOXIN 0.125 MG TAB PO SCH (16:29)
[2018-04-21] MEDS ORDERED: ASPIRIN 81 MG ECTAB PO ONE (17:06)
[2018-04-21] MEDS: DOCUSATE SODIUM 100 MG CAP PO SCH (20:51)
[2018-04-21] MEDS: ATORVASTATIN 20 MG TAB PO SCH (20:51)
[2018-04-22 05:58] LABS: HEMATOCRIT 43.2 % (37-47); HEMOGLOBIN 14.3 g/dL (12.0-16.0); MEAN CELL VOLUME 96.6 fL (80-100); MEAN CORPUSCULAR HGB CONC 33.1 g/dl (32-36); MEAN PLATELET VOLUME 10.3 fL (7.4-10.4); PLATELET COUNT 173 K/uL (130-400); RED CELL DISTRIBUTION WIDTH CV 13.4 % (11.5-14.5); RED CELL DISTRIBUTION WIDTH SD 46.9 fL (36.4-46.3)
[2018-04-22 07:28] VITALS: BP 156/68; PULSE 64; TEMP 36.5; O2SAT 94
[2018-04-22 07:53] LABS: IG# 0.02 K/uL (0.00-0.02); LYMPH % 14.3 %; LYMPH ABS # 1.67 K/uL (1.2-3.4); MONO % 6.4 %; MONO ABS # 0.75 K/uL (0.11-0.59); NEUT % 79.1 %; NEUT ABS # 9.21 K/uL (1.4-6.5)
--- NOTE | 2018-04-22 08:34 | Family Medicine Progress Note ---
Progress Note Date of Service Apr 22, 2018. Subjective Pt evaluation today including: conversation w/ patient, physical exam, chart review, lab review, review of inpatient medication list Pain: Minimal pain reported PO Intake: Tolerating PO intake Voiding: no voiding problems Ms. Young reports she feels much improved after her knee aspiration. She reports a decrease in her level of pain, and notes that she has increased range of motion of her right knee. She denies chest pain, nausea or vomiting. She states that she is constipated, and notes she does take a daily stool softener at home. Constitutional: No fever, No chills Respiratory: No cough Cardiovascular: No chest pain Abdomen: + constipation, No pain, No nausea, No vomiting Musculoskeletal: No joint pain Medications Current Inpatient Medications Medications (Trade) Dose Ordered Sig/Jordan Route Start Time Stop Time Status Last Admin Dose Admin Acetaminophen (Tylenol Tab) 650 mg Q4H PRN PO 04/20/18 20:00 05/20/18 19:59 Ondansetron HCl (Zofran Inj) 4 mg Q6H PRN IV 04/20/18 20:00 05/20/18 19:59 Atorvastatin Calcium (Lipitor Tab) 20 mg HS PO 04/20/18 21:00 05/20/18 20:59 04/21/18 20:51 20 MG Digoxin (Lanoxin Tab) 0.125 mg DAILY@1600 PO 04/21/18 16:00 05/21/18 15:59 04/21/18 16:29 0.125 MG Duloxetine HCl (Cymbalta Cap) 20 mg DAILY PO 04/21/18 09:00 05/21/18 08:59 04/21/18 09:16 20 MG EZETIMIBE (Zetia Tab) 10 mg QAM PO 04/21/18 09:00 05/21/18 08:59 04/21/18 09:15 10 MG Mirabegron (Myrbetriq Er) 25 mg DAILY PO 04/21/18 09:00 05/21/18 08:59 04/21/18 09:16 25 MG Multivitamins/ Minerals (Multivitamin W/ Minerals Tab) 1 tab QAM PO 04/21/18 09:00 05/21/18 08:59 04/21/18 09:16 1 TAB Metoprolol Succinate (Toprol Xl Tab) 100 mg BID PO 04/20/18 21:00 05/20/18 20:59 04/21/18 20:51 100 MG Ketorolac Tromethamine (Toradol Inj) 15 mg Q6H PRN IV 04/20/18 20:15 04/25/18 20:14 04/21/18 06:03 15 MG Miscellaneous (Iv Fluids Completed) 1 ea PRN PRN N/A 04/20/18 21:15 04/20/19 21:14 Docusate Sodium (coLACE CAP) 100 mg BID PO 04/21/18 21:00 05/21/18 20:59 04/21/18 20:51 100 MG Aspirin (Ecotrin Tab) 81 mg QAM PO 04/22/18 09:00 05/22/18 08:59 Apixaban (Eliquis) 5 mg BID PO 04/22/18 09:00 05/22/18 08:59 Objective Vital Signs Date Time Temp Pulse Resp B/P (MAP) Pulse Ox O2 Delivery O2 Flow Rate FiO2 04/22/18 07:28 36.5 64 16 156/68 (97) 94 Room Air 04/21/18 23:40 97 Room Air 04/21/18 22:50 36.8 77 16 133/68 (89) 97 Room Air 04/21/18 16:29 63 04/21/18 16:17 36.6 63 18 147/73 (97) 94 Room Air 04/21/18 16:10 95 Room Air 04/21/18 09:14 54 145/71 (95) Physical Exam General Appearance: WD/WN, no apparent distress Respiratory/Chest: lungs clear, normal breath sounds, no respiratory distress, no accessory muscle use Cardiovascular: regular rate, rhythm, no edema, no murmur Abdomen: non tender, soft Extremities: no pedal edema, no calf tenderness, + pertinent finding (right knee in RONNA bandage. Not tender to touch. Improved ROM) Laboratory Results Last 24 Hours Test 04/22/18 05:37 White Blood Count 11.20 K/uL Red Blood Count 4.47 M/uL Hemoglobin 14.3 g/dL Hematocrit 43.2 % Mean Corpuscular Volume 96.6 fL Mean Corpuscular Hemoglobin 32.0 pg Mean Corpuscular Hemoglobin Concent 33.1 g/dl Platelet Count 173 K/uL Mean Platelet Volume 10.3 fL Neutrophils (%) (Auto) 79.1 % Lymphocytes (%) (Auto) 14.3 % Monocytes (%) (Auto) 6.4 % Eosinophils (%) (Auto) 0.0 % Basophils (%) (Auto) 0.0 % Neutrophils # (Auto) 9.21 K/uL Lymphocytes # (Auto) 1.67 K/uL Monocytes # (Auto) 0.75 K/uL Eosinophils # (Auto) 0.00 K/uL Basophils # (Auto) 0.00 K/uL RDW Standard Deviation 46.9 fL RDW Coefficient of Variation 13.4 % Immature Granulocyte % (Auto) 0.2 % Immature Granulocyte # (Auto) 0.02 K/uL Nucleated RBC Absolute Count (auto) 0.00 K/uL Nucleated Red Blood Cells % 0.0 % Assessment and Plan Ms. Young is a 82 year old female with a past medical history of hyperlipidemia , atrial fibrillation, and CVA 1 year ago on Eliquis who presented with right- sided knee pain Right Knee Effusion - Right Knee CT showed right sided hemarthrosis - orthopedic surgery consulted, thank you for recs -> s/p arthrocentesis and steroid injection -> continue w/ice and compression & weightbearing as tolerated -> f/u in office - pt no longer requiring pain medication - WCC elevated slightly at 11.2, but afebrile and knee exam improved from yesterday. Repeat CBC tomorrow to monitor. - PT/OT ordered Atrial Fibrillation - Continue home Metoprolol and Digoxin - restart eliquis this AM Hypertension - improved after arthrocentesis -> likely secondary to pain CVA History - aspirin restarted Constipation - continue home colace BID Overactive Bladder - Continue home Mirabegron HLD - Continue home Lipitor and Ezetimibe DVT - SCDs, eliquis Code Status - Full Resuscitation Disposition - Await OT Recs - [facility] referral for SNF placement. Referrals being placed to [facility] for rehab. Resident Physician Supervision Note: I was present with the resident physician during the history and exam. I discussed the case with the resident and agree with the findings and plan as documented in the note. Upon examination today, the patient denies knee pain. She has full flexion and extension of the knee today without any discomfort. Her Eliquis and aspirin have been restarted. Physical therapy consultation recommends inpatient rehabilitation and case management is looking into this presently. She is doing well overall and would suspect it would be a short rehabilitation stent. Documented By: Lucio Colbert Resident Tracking Resident Involvement: Resident Care Provided Care Provided: [facility]
[2018-04-22] MEDS ORDERED: APIXABAN 5 MG TAB PO SCH (09:00)
[2018-04-22] MEDS ORDERED: ASPIRIN 81 MG ECTAB PO SCH (09:00)
[2018-04-22] MEDS: DOCUSATE SODIUM 100 MG CAP PO SCH (09:59)
[2018-04-22] MEDS: CEROVITE ADV FORMULA TAB PO SCH (10:00)
[2018-04-22] MEDS: EZETIMIBE 10MG TAB PO SCH (10:00)
[2018-04-22] MEDS: DULOXETINE HCL 20 MG CAP PO SCH (10:00)
[2018-04-22] MEDS: METOPROLOL SUCC 50MG EXT REL TAB PO SCH (10:01)
[2018-04-22] MEDS: MIRABEGRON ER 25 MG TAB PO SCH (10:01)
[2018-04-22 11:12] VITALS: BP 126/72; PULSE 68; TEMP 36.3; O2SAT 95
[2018-04-22 15:13] VITALS: BP 151/67; PULSE 74; TEMP 36.4; O2SAT 94
[2018-04-22] MEDS: DIGOXIN 0.125 MG TAB PO SCH (16:24)
--- NOTE | 2018-04-22 16:32 | Discharge Instructions ---
Discharge Instructions Date of Service Apr 22, 2018. Admission Reason for Admission: Knee Effusion, Right Discharge Discharge Diagnosis / Problem: Knee Hemarthorsis Discharge Goals Goal(s): Decrease discomfort, Improve function, Increase independence, Learn about illness, Therapeutic intervention, Specific goals Activity Recommendations Activity Limitations: resume your previous activity . Instructions / Follow-Up Instructions / Follow-Up You presented to the hospital with Right knee pain/swelling likely from bleeding into joint while on medication Eliquis. You had your Knee aspirated during hospital stay. Per Orthopedic recommendations, please apply HERMANN wrap daily for the next 72 hrs. Ice knee for 20 min every hour or as needed. There are no restrictions of activity at this time. - Please attend follow up appointment with Orthopedics [facility]. Appointment is at 1:45 at [facility]. Office number is if you have not gotten confirmation. If you experience worsening pain, swelling, bleeding, fever, please contact the above number or if you feel concerned , return to Emergency Dept. Current Hospital Diet Patient's current hospital diet: AHA Diet (Heart Healthy) Discharge Diet Recommended Diet: Regular Diet Procedures Procedures Performed: Right Knee Aspiration Pending Studies Studies pending at discharge: no Laboratory Results Hemoglobin A1c Test 03/26/18 14:31 Range/Units Estimated Average Glucose 148 mg/dl Hemoglobin A1c 6.8 H 4.5-5.6 % Medical Emergencies . Who to Call and When: Medical Emergencies: If at any time you feel your situation is an emergency, please call 911 immediately. . Non-Emergent Contact Non-Emergency issues call your: Primary Care Provider, Specialist (Orthopedic surgeon) Call Non-Emergent contact if: you have a fever, your pain is not controlled, your pain is worsening, your pain is unusual for you, your pain is concerning you, wound has increased drainage, wound has increased redness, wound has increased pain, you have any medication questions . . "Provider Documentation" section prepared by Joey Person. . Associate Program Manager Recommendations Associate Program Manager Recommendations: R knee hemarthrosis S/P R knee aspiration. Recommend: Hermann wrap x 72hrs and then as needed Ice for 20min every hour or as needed WBAT R LE with assistive device as needed. (No restrictions- limitations based on pain and swelling) F/U with Mable Jessica PA-C on 8-20 at 1:45 at [facility]. [phone]
--- NOTE | 2018-04-22 17:24 | Discharge Summary ---
Discharge Summary Date of Service Apr 22, 2018. Discharge Summary Admission Date: Apr 21, 2018 at 17:06 Discharge Date: Apr 22, 2018 Discharge Disposition: Home Principal Diagnosis: Right knee hemarthrosis Problems/Secondary Diagnoses: 1) Atrial fibrillation 2) Hx of CVA 3) Hyperlipidemia Immunizations: History of Tetanus Vaccine?: UNSURE History of Pneumococcal: 2003 History of Hepatitis B Vaccine: No Procedures: Arthrocentesis and Steroid Injection of Right Knee CT OF THE RIGHT KNEE WITHOUT CONTRAST CLINICAL HISTORY: Right knee pain. COMPARISON STUDY: Right knee radiographs performed earlier today. TECHNIQUE: Axial images of the right knee were obtained without IV contrast. Sagittal and coronal reconstructed reviewed. FINDINGS: There is mild lateral patellar tilt. No acute fracture is identified. No suspicious osseous lesion is present. There is a large right knee joint effusion which contains foci of increased attenuation consistent with hemorrhage. A fat fluid level is present. There is mild to moderate tricompartmental osteoarthritis of the right knee. IMPRESSION: 1. No acute fracture. 2. Large right knee joint effusion consistent with a hemarthrosis. Consultations: Orthopedics Medication Reconciliation Continued Medications: Apixaban (Eliquis) 5 Mg Tab 5 MG PO BID Aspirin (Aspirin Ec) 81 Mg Tab 81 MG PO DAILY Atorvastatin (Lipitor) 20 Mg Tab 20 MG PO HS Cholecalciferol (Vitamin D3) 1,000 Unit Tab 1000 INTER.UNIT PO DAILY, TAB Digoxin (Digitek) 0.125 Mg Tab 0.125 MG PO DAILY Duloxetine HCl (Duloxetine HCl) 20 Mg Cap 20 MG PO DAILY Ezetimibe (Ezetimibe) 10 Mg Tab 10 MG PO QAM Metoprolol Succinate (Metoprolol Succinate ER) 100 Mg Tabcr 100 MG PO BID Mirabegron (Myrbetriq Er) 25 Mg Tab 25 MG PO DAILY Multivitamins/Minerals (Mvi With Minerals) Tab 1 TAB PO QAM, TAB Senna/Docusate Sod (Senokot S) 1 Tab Tab 1 TAB PO BID, TAB Discharge Exam Ms. Young reports her pain is much improved today after the joint aspiration. She reports increased ROM. She denies chest pain, SOB, n/v, dizziness or lightheadedness. Review of Systems: Constitutional: No fever, No chills Respiratory: No cough, No shortness of breath Cardiovascular: No chest pain Abdomen: No nausea, No vomiting Physical Exam: General Appearance: WD/WN, no apparent distress Respiratory/Chest: lungs clear, normal breath sounds, no respiratory distress, no accessory muscle use Cardiovascular: regular rate, rhythm, no edema Extremities: + pertinent finding Hospital Course Ms. Young is a 82 year old female with a past medical history of hyperlipidemia , atrial fibrillation, and CVA 1 year ago on Eliquis who presented with right- sided knee pain. Right Knee Effusion - Right Knee CT showed right sided hemarthrosis - no hx of trauma to knee. Likely secondary to anticoagulation usage. - orthopedic surgery consulted -> s/p arthrocentesis and steroid injection -> continue w/ice and compression & weightbearing as tolerated -> f/u in office as per below - WCC elevated slightly at 11.2, but afebrile and knee exam improved from yesterday. No concern at this time for infection - PT and OT recommended short stay at inpatient rehab, but pt reported she would prefer to return home and stated she is active w[facility] Atrial Fibrillation - restarted eliquis the morning after her arthrocentesis Hypertension - BP was in 200s systolic on admission,but improved after arthrocentesis -> likely secondary to pain Resident Physician Supervision Note: I was present with the resident physician during the history and exam. I discussed the case with the resident and agree with the findings and plan as documented in the note. The patient did quite well in physical therapy today. As such, it was determined that she could go home and continue home exercises rather than inpatient therapy. The patient was happy with this plan; she will follow-up with her PCP as well as orthopedics; she will call her PCP or orthopedics with any change in symptoms. Documented By: Lucio Colbert Total Time Spent: Less than 30 minutes This includes examination of the patient, discharge planning, medication reconciliation, and communication with other providers. Discharge Instructions Please refer to the electronic Patient Visit Report (Discharge Instructions) for additional information. Follow-Up F/U with Mable Jessica PA-C on 04-28 at 1:45 at [facility]. Additional Copies To Preston Moreno M.D. Resident Tracking Resident Involvement: Resident Care Provided Care Provided: [facility]
[2018-04-22 17:54] VITALS: BP 151/67; PULSE 79; TEMP 36.4; O2SAT 94
== END 2018-04-22 18:15 | disposition home or self-care (01) | DRG 813 ==
LOC: EDBD 16:59 → C.EDC 17:00 → C.3E 20:05 → ENRESERV 20:21 → OBSVTOIN 04-21 17:06
PROVIDERS: ADMIT Student in an Organized Health Care Education/Training Program; ATTEND Family Medicine
PROC: 3E0U33Z Introduction of Anti-inflammatory into Joints, Percutaneous Approach (ICD-10-PCS; principal; 2018-04-21)
PROC: 0Y9F3ZZ Drainage of Right Knee Region, Percutaneous Approach (ICD-10-PCS; principal; 2018-04-21)
DX: D68.32 Hemorrhagic disorder due to extrinsic circulating anticoagulants (principal); M25.062 Hemarthrosis, left knee; I48.91 Unspecified atrial fibrillation; I50.9 Heart failure, unspecified; M48.061 Spinal stenosis, lumbar region without neurogenic claudication; M81.0 Age-related osteoporosis without current pathological fracture; Z86.73 Personal history of transient ischemic attack (TIA), and cerebral infarction without residual deficits; E78.5 Hyperlipidemia, unspecified; Z79.01 Long term (current) use of anticoagulants; N32.81 Overactive bladder; T45.515A Adverse effect of anticoagulants, initial encounter; Y92.009 Unspecified place in unspecified non-institutional (private) residence as the place of occurrence of the external cause

== ENCOUNTER 2019-01-27 17:19 | Inpatient (IN) ==
[2019-01-27] MEDS ORDERED: SODIUM CHLORIDE 0.9% 1000ML 1,000 ML IV SCH (17:30)
[2019-01-27 17:50] LABS: Basophils # (auto) 0.02 K/uL (0-0.2); Basophils % (auto) 0.2 %; Eosinophils # (auto) 0.14 K/uL (0-0.5); Eosinophils % (auto) 1.7 %; Hematocrit (blood only) 48.9 % (37-47); Hemoglobin 16.6 g/dL (12.0-16.0); Immature Granulocytes # (auto) 0.06 K/uL (0.00-0.02); Immature Granulocytes % (auto) 0.7 %; Lymphocytes # (auto) 2.26 K/uL (1.2-3.4); Lymphocytes % (auto) 27.4 %; Mean Corpuscular Hgb Conc 33.9 g/dL (32-36); Mean Corpuscular Volume 95.9 fL (80-100); Mean Platelet Volume 10.8 fL (7.4-10.4); Monocytes # (auto) 0.76 K/uL (0.11-0.59); Monocytes % (auto) 9.2 %; Neutrophils # (auto) 5.01 K/uL (1.4-6.5); Neutrophils % (auto) 60.8 %; Platelet Count 155 K/uL (130-400); RDW Coefficient of Variation 13.2 % (11.5-14.5); RDW Standard Deviation 46.3 fL (36.4-46.3); White Blood Count 8.25 K/uL (4.8-10.8)
[2019-01-27] MEDS ORDERED: MoRPHine SULFATE 2 MG/ML CARP IV STA (17:54)
--- NOTE | 2019-01-27 18:01 | XRay Report ---
XR hip RT 2-3V w pelvis HISTORY: 83 years-old Female falll acute right hip pain status post fall COMPARISON: Pelvis and hip radiographs 07/10/2018 TECHNIQUE: AP view of the pelvis with 2 views of the right hip FINDINGS: Demineralized appearance of the bones. 2.8 cm corticated ossification superior to the left greater tr ochanter redemonstrated. Left hip total joint arthroplasty. Remote fracture of the left inferior pubi c ramus. Advanced degenerative changes of the lumbar spine. There is an acute subcapital fracture abo ut the right femur with approximately 1.4 cm impaction and 2.0 cm superior displacement. Adjacent sof t tissue swelling about the right hip is also noted. Moderate right hip posterior arthritis. IMPRESSION: Acute displaced and angulated subcapital fracture of the right femur. The above report was generated using voice recognition software. It may contain grammatical, syntax o r spelling errors. Electronically signed by: Tex Glass M.D. 01/27/2019 5:59 PM
[2019-01-27 18:02] LABS: Partial Thromboplastin Ratio 0.9; Partial Thromboplastin Time 23.1 Seconds (21.0-31.0); Prothrombin Time 10.4 Seconds (9.0-12.0)
--- NOTE | 2019-01-27 18:02 | XRay Report ---
XR chest 1V portable HISTORY: 83 years-old Female fall acute chest trauma status post fall COMPARISON: Chest radiograph 01/17/2017 TECHNIQUE: Portable AP view of the chest FINDINGS: Cardiomediastinal and hilar silhouettes are unchanged. Calcification the thoracic arch. Chronic inter stitial coarsening without pneumothorax, pleural effusion or overt pulmonary edema. Degenerative camacho ges of the shoulders and spine. IMPRESSION: No acute process. The above report was generated using voice recognition software. It may contain grammatical, syntax o r spelling errors. Electronically signed by: Tex Glass M.D. 01/27/2019 6:01 PM
[2019-01-27] MEDS: MoRPHine SULFATE 4 MG/ML 1 ML CARP\\VIAL IV PRN ×3 (18:07→20:38)
[2019-01-27 18:09] LABS: BUN Creatinine Ratio 19.8 (10-20); Calcium 9.5 mg/dl (8.5-10.1); Creatinine Clr Calc Pharmacy 59.9 ml/min; Est GFR (African American) 94.6; Est GFR (Non-African American) 81.6; Potassium 3.6 mmol/L (3.5-5.1)
--- NOTE | 2019-01-27 19:04 | CT Scan Report ---
CT head/brain wo con CLINICAL HISTORY: 83 years-old Female presenting with fall. TECHNIQUE: Multidetector CT imaging of the head was performed without the use of intravenous contrast . IV contrast: None. One or more dose lowering techniques were used consistent with the principles of ALARA (as low as reasonably achievable), including automatic exposure control, mA or kV adjustment t o individual patient size, and/or use of iterative reconstruction. COMPARISON: 02/18/2018. CT DOSE (mGy.cm): The estimated cumulative dose is 537.48 mGy.cm. FINDINGS: Ship Ceiler topogram: Unremarkable. Proportional ventricular and sulcal prominence, likely age-related parenchymal volume loss. No hemorr chapito. Old lacunar infarct in the left periventricular white matter. Additional old lacunar infarcts m ay be present in the bilateral basal ganglia. No acute territorial infarct. No mass effect or midline shift. No extra-axial fluid collection. Paranasal sinuses and mastoid air cells clear. Calvarium int act. Intracranial atherosclerosis noted. IMPRESSION: 1. No significant change compared to the prior study. No acute intracranial abnormality. Electronically signed by: Juan Chin M.D. 01/27/2019 7:02 PM
[2019-01-27 19:28] LABS: Albumin Level 4.3 gm/dl (3.4-5.0); Bilirubin,Total 0.5 mg/dl (0.2-1); Total Protein 8.2 gm/dl (6.4-8.2)
[2019-01-27 19:33] LABS: Bilirubin Direct 0.1 mg/dl (0-0.2)
--- NOTE | 2019-01-27 19:54 | History & Physical Report ---
Date of Service January 27, 2019 Assessment & Plan (1) Hip fracture: 83 y/o F Hx chronic diastolic CHF, chronic AF, HTN, HLD, NSVT, osteoporosis. Presents following a mechanical fall onto her L side where she sustained a subcapital femoral fracture. She denies preceding symptoms such as lightheadedness, palpitations or CP. The pt's SBP was over 200 on arrival to the ER which was likely related to pain. 1) Hip fracture - admitted per protocol. She took her Eliquis AM and not this evening so she may be able to have surgery tomorrow. We will keep her NPO > midnight in the event that surgery can take place. Her RCRI merits a cardiology evaluation and we have consulted her clinical pathologist. Her pain has been difficult to control so that we will consider placing her on telemetry if we have to give her higher doses of narcotics. 2) Chronic AF and history of NSVT - cont Metoprolol 100BID and Dig 0.125 daily - restart anticoagulation at earliest possible time as she does have a history of CVA and Eliquis is obviously held for surgery 3) HTN, HLD - cont Metop, Atorvastatin - Ezitimibe held Full code - Eliquis anticoagulation Total time for this admit including review of labs, meds, imaging, records - discussion with pt and ER attending - 41 min Present on Admission?: Yes History of Present Illness Chief Complaint: Hip fracture Primary Care Provider: Preston Moreno MD 83 y/o F Hx chronic diastolic CHF, chronic AF, HTN, HLD, NSVT, osteoporosis. Presents following a mechanical fall onto her L side where she sustained a subcapital femoral fracture. She denies preceding symptoms such as lightheadedness, palpitations or CP. The pt's SBP was over 200 on arrival to the ER which was likely related to pain. 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 Maintains independence. Family: Both parents due to CAD/MIs Allergies Allergy/AdvReac Type Severity Reaction Status Date / Time amoxicillin Allergy Intermediate RASH Verified 05/21/19 18:07 Penicillins Allergy Intermediate RASH Verified 01/27/19 18:07 pravastatin Allergy Intermediate MYALGIA Verified 01/27/19 18:07 simvastatin Allergy Intermediate MYALGIA Verified 01/27/19 18:07 Home Medications Home Medications Medication Instructions Recorded Confirmed Type acetaminophen [Tylenol Extra 500 mg PO Q4 PRN 01/27/19 01/27/19 History Strength] apixaban [Eliquis] 5 mg PO BID 01/27/19 01/27/19 History aspirin [Aspir-81] 81 mg PO DAILY 01/27/19 01/27/19 History atorvastatin 20 mg PO HS 01/27/19 01/27/19 History cholecalciferol (vitamin D3) 2,000 unit PO DAILY 01/27/19 01/27/19 History [Vitamin D3] cyanocobalamin (vitamin B-12) 1,000 mcg PO DAILY 01/27/19 01/27/19 History [Vitamin B-12] diclofenac sodium 4 g TOPICAL QID 01/27/19 01/27/19 History digoxin [Digox] 125 mcg PO DAILY 01/27/19 01/27/19 History duloxetine 20 mg PO DAILY 01/27/19 01/27/19 History ezetimibe 10 mg PO QDD 01/27/19 01/27/19 History metoprolol succinate 100 mg PO BID 01/27/19 01/27/19 History mirabegron [Myrbetriq] 25 mg PO DAILY 01/27/19 01/27/19 History sennosides-docusate sodium 1 tab PO BID 01/27/19 01/27/19 History [Senna-S] Past Med/Surg History Medical History Osteoporosis (Chronic) Atrial fibrillation CHF (congestive heart failure) (Resolved 03/19/14) Lumbar stenosis with neurogenic claudication (Resolved 03/16/14) Family History Other Family history non-contributory Social History Feels Safe at Home: Yes Smoking Status: Never smoker Review of Systems Review of Systems: Gen: Denies fevers, night sweats, rigors, fatigue, malaise, weight loss/gain ENT: Denies congestion, throat pain, hearing loss Eyes: Denies acute visual changes CV: Denies CP, palpitations Pulmonary: Denies SOB, cough, wheezing GI: Denies N/V, diarrhea, constipation Neuro: Denies acute or unilateral weakness, acute gait impairment, headache or acute visual changes Musculoskeletal: Severe pain in hip Endocrine: Denies polydipsia, polyuria Skin: Denies acute rashes or ulcers Physical Exam Physical Exam: General: AAO x 3 - distressed due to hip pain ENT: No erythema or exudates, no thrush Eyes: HEMANTH, EOMI Head and neck: Normocephalic, atraumatic, No JVD, neck is supple. Chest/heart: Nontender, S1,2, irregular, no murmurs, no gallops Lungs: CTAB, no wheezing or crackles Abdomen: Nontender, nondistended, BS+ Neuro: AAO x 3, speech is clear, no unilateral weakness or loss of sensation, coordination intact Musculoskeletal: Did not palpate hip - there was no LE rotation - pulses + Skin: No acute rashes or ulcers Extremities: No clubbing, cyanosis, edema Results & Data Vital Signs (Past 12 Hours) Vital Signs Temp Pulse Pulse Resp BP BP Pulse Ox 01/27/19 18:31 91 01/27/19 18:13 69 18 211/95 H 91 01/27/19 17:28 97.5 F L 72 18 224/90 H 92 Diagnostic Findings Hip XR: Acute displaced and angulated subcapital fracture of the right femur. (1) Hip fracture Encounter type: initial encounter Fracture type: closed Laterality: right Qualified Code(s): S72.001A - Fracture of unspecified part of neck of right femur, initial encounter for closed fracture
[2019-01-27] MEDS ORDERED: D5W AND LACTATED RINGERS 1,000 ML IV SCH (20:15)
[2019-01-27] MEDS ORDERED: BISACODYL 10 MG SUPP PR PRN (21:35)
[2019-01-27] MEDS ORDERED: ONDANSETRON INJ 2 MG/ML 2 ML VIAL IV PRN (21:35)
[2019-01-27] MEDS ORDERED: MAGNESIUM HYDROXIDE SUSP 30 ML UDC PO PRN (21:35)
[2019-01-27] MEDS ORDERED: HydrALAZINE HCL 20 MG/ML VIAL IV PRN (21:35)
[2019-01-27] MEDS ORDERED: NALOXONE HCL 0.4 MG/1 ML VIAL/CARP IV PRN (21:35)
[2019-01-27 22:00] LABS: Appearance Urine Clear (Clear); Bacteria Urine Automated Negative (Negative); Bilirubin Urine Negative (Negative); Blood Urine Trace (Negative); Cast Urine Automated 0 /lpf (0-5); Color Urine Yellow; Epithelial Cell Urine Auto 0-5 /lpf (0-5); Glucose Urine UA Negative (Negative); Ketones Urine Negative (Negative); Leukocyte Esterase Urine Negative (Negative); Nitrite Urine Negative (Negative); Protein Urine Negative (Negative); RBC Urine Automated 0-4 /hpf (0-4); Specific Gravity Urine 1.013 (1.000-1.030); Urobilinogen Urine Negative (Negative); WBC Urine Automated 0 /hpf (0-5); pH Urine 8.5 (4.5-7.5)
[2019-01-27] MEDS: ATORVASTATIN 20 MG TAB PO SCH (22:45)
[2019-01-27] MEDS: METOPROLOL SUCC 50MG EXT REL TAB PO SCH (22:45)
[2019-01-27] MEDS: DOCUSATE SODIUM/SENNA 50/8.6MG TAB PO SCH (22:47)
--- NOTE | 2019-01-27 23:50 | Emergency Department Note ---
Entered by Chon Parrish acting as a scribe for Sacha Cadena DO History of Present Illness General Chief complaint: Hip Pain Stated complaint: FALL, R HIP PAIN Source: patient History of Present Illness Onset (ago): minute(s) (prior to arrival) Location: right (hip) Pain Consistency: + constant Quality: + other (right hip pain after fall) Exacerbated By: + movement Associated symptoms: + other (denies loss of consciousness or head trauma) The patient is an 83 year old female who presents to the Emergency Room with complaints of constant right hip pain after a mechanical fall occurring prior to arrival. The patient reports that she was washing windows when she lost her footing and fell onto her right hip. She states that she did not lose consciousness or strike her head. Her pain is worsened with movement. She states that she does not take blood thinners. The patient denies any other pain. Patient has no other complaints this time point Home Medications Home Medications Medication Instructions Recorded Confirmed Type acetaminophen [Tylenol Extra 500 mg PO Q4 PRN 01/27/19 01/27/19 History Strength] apixaban [Eliquis] 5 mg PO BID 01/27/19 01/27/19 History aspirin [Aspir-81] 81 mg PO DAILY 01/27/19 01/27/19 History atorvastatin 20 mg PO HS 01/27/19 01/27/19 History cholecalciferol (vitamin D3) 2,000 unit PO DAILY 01/27/19 01/27/19 History [Vitamin D3] cyanocobalamin (vitamin B-12) 1,000 mcg PO DAILY 01/27/19 01/27/19 History [Vitamin B-12] diclofenac sodium 4 g TOPICAL QID 01/27/19 01/27/19 History digoxin [Digox] 125 mcg PO DAILY 01/27/19 01/27/19 History duloxetine 20 mg PO DAILY 01/27/19 01/27/19 History ezetimibe 10 mg PO QDD 01/27/19 01/27/19 History metoprolol succinate 100 mg PO BID 01/27/19 01/27/19 History mirabegron [Myrbetriq] 25 mg PO DAILY 01/27/19 01/27/19 History sennosides-docusate sodium 1 tab PO BID 05/21/19 05/21/19 History [Senna-S] Allergies Allergy/AdvReac Type Severity Reaction Status Date / Time amoxicillin Allergy Intermediate RASH Verified 01/27/19 18:07 Penicillins Allergy Intermediate RASH Verified 01/27/19 18:07 pravastatin Allergy Intermediate MYALGIA Verified 01/27/19 18:07 simvastatin Allergy Intermediate MYALGIA Verified 01/27/19 18:07 Past Med/Surg History Medical History Osteoporosis (Chronic) Atrial fibrillation CHF (congestive heart failure) (Resolved 03/19/14) Lumbar stenosis with neurogenic claudication (Resolved 03/16/14) Family History Other Family history non-contributory Social History Preferred Language: [place] Communication Ability: Effective Consumer Educator Required: No Current Living Situation: Alone Other Information That Helps Us Care for You: No Feels Safe at Home: Yes Safety Concerns: Feels Safe At This Time Smoking Status: Never smoker Hx Alcohol Use: No Hx Substance Use: No Review of Systems See HPI for pertinent positives & negatives. and A total of 10 systems reviewed and were otherwise negative Physical Exam Vital Signs Vital Signs - 24 hr 01/27/19 17:28 01/27/19 18:13 01/27/19 18:31 Temperature 36.4 C L Temperature Source Oral Sepsis Recent Fever Within 48 Hours No Sepsis New/Unexplained Change in Mental Status No Sepsis Action Taken by Nursing No Action Required Pulse Rate 72 Pulse Rate [Finger] 69 Pulse Rhythm Regular Pulse Strength Normal Respiratory Rate 18 18 Respiratory Effort / Characteristics Non-Labored Respiratory Depth Normal Respiratory Pattern Regular Blood Pressure 224/90 H Blood Pressure [Right Arm] 211/95 H Blood Pressure Mean 134 Blood Pressure Mean [Right Arm] 133 Blood Pressure Position Lying Pulse Oximetry 92 91 91 Oxygen Delivery Method Room Air Room Air Nasal Cannula Oxygen Flow Rate 1 GENERAL: alert, well appearing, well nourished, no distress, non-toxic HEAD: normal cephalic, atraumatic EYE EXAM: normal conjunctiva, PERRL and EOM's grossly intact OROPHARYNX: no exudate, no erythema, lips, buccal mucosa, and tongue normal and mucous membranes are moist EARS: TMs clear b/l NECK: supple, no nuchal rigidity, no adenopathy, non-tender CHEST: stable to compression anteriorly and posteriorly LUNGS: clear to auscultation. Normal chest wall mechanics HEART: no murmurs, S1 normal and S2 normal ABDOMEN: abdomen soft, non-tender, normo-active bowel sounds, no masses, no rebound or guarding. PELVIS: stable to compression anteriorly and posteriorly BACK: Back is symmetrical on inspection and there is no deformity, no midline tenderness, no CVA tenderness. UPPER EXTREMITIES: full active and passive range of motion of all joints without tenderness to palpation, with exception of abrasion to the right elbow. LOWER EXTREMITIES: full active and passive range of motion of all joints without tenderness to palpation, with exception of significant pain on palpation of the right hip. DP pulses 2/4, gross sensation intact. NEURO EXAM: Normal sensorium, cranial nerves II-XII grossly intact, normal spee ch, no gross weakness of arms, no gross weakness of legs. GCS: 15. Course ED COURSE: Vital signs were reviewed and showed hypertension felt to be situational The patients medical record was reviewed The above diagnostic studies were performed and reviewed. ED treatments and interventions as stated above. 172: The patient was evaluated in room B8. A complete history and physical examination was performed. 1813: I updated the patient on current results. 0: Dr. Parker � [facility] Hospitalist was notified of the patient. She will be reevaluated for hospitalization. 0: I consulted Dr. Banegas � Orthopedics. Based on the patients age, coexisting illnesses, exam and lab findings the decision to treat as an inpatient was made. The patient remained stable while under my care. The patient will be evaluated for further management. Administered Medications Atorvastatin Calcium (Lipitor) 20 mg PO HS [facility] Stop: 02/26/19 21:34 Last Admin: 01/27/19 22:45 Dose: 20 mg Documented by: [id number] Hydralazine HCl (Hydralazine Hcl) 2.5 mg IV Q6H PRN PRN Reason: SBP > 160 Stop: 02/26/19 21:34 Last Admin: 01/27/19 22:43 Dose: 2.5 mg Documented by: [id number] Dextrose/Lactated Ringer's (D5w And Lactated Ringers) 1,000 mls @ 60 mls/hr IV .[id number] QUANG Stop: 01/28/19 12:54 Last Admin: 01/27/19 22:54 Dose: 60 mls/hr Documented by: [id number] Metoprolol Succinate (Toprol Xl) 100 mg PO BID QUANG Stop: 02/26/19 21:34 Last Admin: 01/27/19 22:45 Dose: 100 mg Documented by: [id number] Senna/Docusate Sodium (Senokot S) 2 tab PO HS QUANG Stop: 02/26/19 21:34 Last Admin: 01/27/19 22:47 Dose: 2 tab Documented by: [id number] Discontinued Medications Sodium Chloride (Nss 1000ml) 1,000 mls @ 250 mls/hr IV .Q4H QUANG Stop: 01/27/19 21:29 Last Infusion: 01/27/19 23:17 Dose: 0 mls/hr Documented by: [id number] Admin: 01/27/19 18:07 Dose: 250 mls/hr Documented by: [id number] Morphine Sulfate (Morphine Sulfate) 4 mg IV Q1H PRN PRN Reason: Severe Pain (Rating 7,8,9,10) Stop: 02/10/19 17:25 Last Admin: 01/27/19 20:38 Dose: 4 mg Documented by: [id number] Admin: 01/27/19 19:10 Dose: 4 mg Documented by: [id number] Admin: 01/27/19 18:07 Dose: 4 mg Documented by: [id number] Morphine Sulfate (Morphine Sulfate) 2 mg IV NOW STA Stop: 01/27/19 17:55 Last Admin: 01/27/19 18:07 Dose: Not Given Documented by: [id number] Medical Decision Making Differential Diagnosis Differential diagnoses include major intracranial, cervical, spinal, thoracic, abdominal, pelvic and neurologic injury. Fracture, contusion, sprain, strain, laceration, abrasions included as well. Medical Records Attestation: I reviewed the patient's medical records. Home Medications Current Medication List: was personally reviewed by me Laboratory Data Attestation: I reviewed the patient's lab results. Result diagrams: 01/27/19 17:41 01/27/19 17:41 Lab Results 01/27/19 01/27/19 01/27/19 Range/Units 17:41 17:41 17:41 WBC 8.25 (4.8-10.8) K/uL RBC 5.10 (4.2-5.4) M/uL Hgb 16.6 H (12.0-16.0) g/dL Hct 48.9 H (37-47) % MCV 95.9 (80-100) fL MCH 32.5 (25-34) pg MCHC 33.9 (32-36) g/dL RDW Std Deviation 46.3 (36.4-46.3) fL RDW Coeff of Diya 13.2 (11.5-14.5) % Plt Count 155 (130-400) K/uL MPV 10.8 H (7.4-10.4) fL Immature Gran % (Auto) 0.7 % Neut % (Auto) 60.8 % Lymph % (Auto) 27.4 % [place] % (Auto) 9.2 % Eos % (Auto) 1.7 % Baso % (Auto) 0.2 % Immature Gran # (Auto) 0.06 H (0.00-0.02) K/uL Neut # (Auto) 5.01 (1.4-6.5) K/uL Lymph # (Auto) 2.26 (1.2-3.4) K/uL Free[place] # (Auto) 0.76 H (0.11-0.59) K/uL Eos # (Auto) 0.14 (0-0.5) K/uL Baso # (Auto) 0.02 (0-0.2) K/uL PT 10.4 (9.0-12.0) Seconds INR 1.0 (0.9-1.1) APTT 23.1 (21.0-31.0) Seconds PTT Ratio 0.9 Sodium 140 (136-145) mmol/L Potassium 3.6 (3.5-5.1) mmol/L Chloride 102 (98-107) mmol/L Carbon Dioxide 32 (21-32) mmol/L Anion Gap 6.0 (3-11) BUN 14 (7-18) mg/dl Creatinine 0.69 (0.6-1.2) mg/dl Est Cr Clr Drug Dosing 59.9 ml/min Est GFR ( Amer) 94.6 Est GFR (Non-Af Amer) 81.6 BUN/Creatinine Ratio 19.8 (10-20) Glucose 122 H (70-99) mg/dl Calcium 9.5 (8.5-10.1) mg/dl Total Bilirubin 0.5 (0.2-1) mg/dl Direct Bilirubin 0.1 (0-0.2) mg/dl AST 34 (15-37) U/L ALT 47 (12-78) U/L Alkaline Phosphatase 98 (45-117) U/L Total Protein 8.2 (6.4-8.2) gm/dl Albumin 4.3 (3.4-5.0) gm/dl Blood Type Antibody Screen 01/27/19 01/27/19 01/27/19 Range/Units 17:41 17:41 19:01 WBC (4.8-10.8) K/uL RBC (4.2-5.4) M/uL Hgb (12.0-16.0) g/dL Hct (37-47) % MCV (80-100) fL MCH (25-34) pg MCHC (32-36) g/dL RDW Std Deviation (36.4-46.3) fL RDW Coeff of Diya (11.5-14.5) % Plt Count (130-400) K/uL MPV (7.4-10.4) fL Immature Gran % (Auto) % Neut % (Auto) % Lymph % (Auto) % Free[place] % (Auto) % Eos % (Auto) % Baso % (Auto) % Immature Gran # (Auto) (0.00-0.02) K/uL Neut # (Auto) (1.4-6.5) K/uL Lymph # (Auto) (1.2-3.4) K/uL [place] # (Auto) (0.11-0.59) K/uL Eos # (Auto) (0-0.5) K/uL Baso # (Auto) (0-0.2) K/uL PT (9.0-12.0) Seconds INR (0.9-1.1) APTT (21.0-31.0) Seconds PTT Ratio Sodium (136-145) mmol/L Potassium (3.5-5.1) mmol/L Chloride (98-107) mmol/L Carbon Dioxide (21-32) mmol/L Anion Gap (3-11) BUN (7-18) mg/dl Creatinine (0.6-1.2) mg/dl Est Cr Clr Drug Dosing ml/min Est GFR ( Amer) Est GFR (Non-Af Amer) BUN/Creatinine Ratio (10-20) Glucose (70-99) mg/dl Calcium (8.5-10.1) mg/dl Total Bilirubin Cancelled (0.2-1) mg/dl Direct Bilirubin Cancelled (0-0.2) mg/dl AST Cancelled (15-37) U/L ALT Cancelled (12-78) U/L Alkaline Phosphatase Cancelled (45-117) U/L Total Protein Cancelled (6.4-8.2) gm/dl Albumin Cancelled (3.4-5.0) gm/dl Blood Type Cancelled A Positive Antibody Screen Cancelled NEGATIVE Imaging Data Radiologist's Impression: Radiology results as stated below per my review and the radiologist's interp retation: XR chest 1V portable HISTORY: 83 years-old Female fall acute chest trauma status post fall COMPARISON: Chest radiograph 01/17/2017 TECHNIQUE: Portable AP view of the chest FINDINGS: Cardiomediastinal and hilar silhouettes are unchanged. Calcification the thoracic arch. Chronic interstitial coarsening without pneumothorax, pleural effusion or overt pulmonary edema. Degenerative changes of the shoulders and spine. IMPRESSION: No acute process. The above report was generated using voice recognition software. It may contain grammatical, syntax or spelling errors. Electronically signed by: Tex Glass M.D. 01/27/2019 6:[address] head/brain wo con CLINICAL HISTORY: 83 years-old Female presenting with fall. TECHNIQUE: Multidetector CT imaging of the head was performed without the use of intravenous contrast. IV contrast: None. One or more dose lowering techniques were used consistent with the principles of ALARA (as low as reasonably achievable), including automatic exposure control, mA or kV adjustment to individual patient size, and/or use of iterative reconstruction. COMPARISON: 02/18/2018. CT DOSE (mGy.cm): The estimated cumulative dose is 537.48 mGy.cm. FINDINGS: Employee Benefits Attorney topogram: Unremarkable. Proportional ventricular and sulcal prominence, likely age-related parenchymal volume loss. No hemorrhage. Old lacunar infarct in the left periventricular white matter. Additional old lacunar infarcts may be present in the bilateral basal ganglia. No acute territorial infarct. No mass effect or midline shift. No extra-axial fluid collection. Paranasal sinuses and mastoid air cells clear. Calvarium intact. Intracranial atherosclerosis noted. IMPRESSION: 1. No significant change compared to the prior study. No acute intracranial abnormality. Electronically signed by: Juan Chin M.D. 01/27/2019 7:02 PM XR hip RT 2-3V w pelvis HISTORY: 83 years-old Female falll acute right hip pain status post fall COMPARISON: Pelvis and hip radiographs 07/10/2018 TECHNIQUE: AP view of the pelvis with 2 views of the right hip FINDINGS: Demineralized appearance of the bones. 2.8 cm corticated ossification superior to the left greater trochanter redemonstrated. Left hip total joint arthroplasty. Remote fracture of the left inferior pubic ramus. Advanced degenerative changes of the lumbar spine. There is an acute subcapital fracture about the right femur with approximately 1.4 cm impaction and 2.0 cm superior displacement. Adjacent soft tissue swelling about the right hip is also noted. Moderate right hip posterior arthritis. IMPRESSION: Acute displaced and angulated subcapital fracture of the right femur. The above report was generated using voice recognition software. It may contain grammatical, syntax or spelling errors. Electronically signed by: Tex Glass M.D. 01/27/2019 5:59 PM ECG Data Attestation: I personally reviewed and interpreted this ECG as follows: Indication: other (trauma) Rate (beats per minute): 68 Rhythm: sinus rhythm Findings: + other (normal axis, poor baseline); no PVC Blood Pressure Blood Pressure Findings: Elevated blood pressure Blood Pressure Disposition: further management by hospitalist ALLI Narrative Patient is an 83-year-old female who presents the ER for mechanical fall and right hip pain. No other complaints at this time. Labs were obtained and showed no significant leukocytosis or anemia. INR was unremarkable. MP is unremarkable. UA was unremarkable. X-rays of the hip pelvis chest and CT head show right subcapital hip fracture. This is discussed with orthopedics. Patient was updated bedside. Given multiple dose of IV narcotics and fluids. Discussed the hospitalist patient was admitted for right hip fracture. Impression & Plan Hip fracture, Fall Discharge Plan Visit Data *Final* Discharge Date/Time: 01/27/19 21:07 Chief Complaint: Hip Pain Stated Complaint: FALL, R HIP PAIN ED Provider: Sacha Cadena Discharge Problem: Hip fracture, Fall Patient Disposition: Admitted As Inpatient Discharge Instructions Interventions: ED Discharge Assessment Last Done: 01/27/19 21:07 Discharge Problem: Hip fracture Qualifiers: Encounter type: initial encounter Fracture type: closed Laterality: right Qualified Code(s): S72.001A - Fracture of unspecified part of neck of right femur, initial encounter for closed fracture Fall Qualifiers: Encounter type: initial encounter Qualified Code(s): W19.XXXA - Unspecified fall, initial encounter The scribe's documentation has been prepared under my direction and personally reviewed by me in its entirety. I confirm that the note above accurately reflects all work, treatment, procedures, and medical decision making performed by me.
[2019-01-28] MEDS: MoRPHine SULFATE 4 MG/ML 1 ML CARP\\VIAL IV PRN ×3 (00:13→11:09)
[2019-01-28] MEDS: OXYCODONE HCL IR 5 MG TAB (IMMEDIATE RELEASE) PO PRN ×3 (01:59→13:40)
[2019-01-28] MEDS ORDERED: CEFAZOLIN 2000MG 2,000 MG/15 ML SYR IV SCH (06:00)
[2019-01-28 06:40] LABS: Basophils # (auto) 0.02 K/uL (0-0.2); Basophils % (auto) 0.1 %; Eosinophils # (auto) 0.17 K/uL (0-0.5); Eosinophils % (auto) 1.1 %; Hematocrit (blood only) 44.9 % (37-47); Hemoglobin 15.1 g/dL (12.0-16.0); Immature Granulocytes # (auto) 0.02 K/uL (0.00-0.02); Immature Granulocytes % (auto) 0.1 %; Lymphocytes # (auto) 1.91 K/uL (1.2-3.4); Lymphocytes % (auto) 12.8 %; Mean Corpuscular Hgb Conc 33.6 g/dL (32-36); Mean Corpuscular Volume 95.5 fL (80-100); Mean Platelet Volume 10.7 fL (7.4-10.4); Monocytes # (auto) 1.29 K/uL (0.11-0.59); Monocytes % (auto) 8.7 %; Neutrophils % (auto) 77.2 %; Platelet Count 133 K/uL (130-400); RDW Coefficient of Variation 13.3 % (11.5-14.5); RDW Standard Deviation 46.7 fL (36.4-46.3); White Blood Count 14.91 K/uL (4.8-10.8)
--- NOTE | 2019-01-28 06:54 | Anesthesiology Consultation ---
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 entry initiated History Surgery Operation Date: 01/28/19 09:10 Proposed Procedures p Right Bipolar Hip Prosthesis Cemented - El Emanuel MD Height/Weight Height: 5 ft 6 in Weight: 59.829 kg Allergies Allergy/AdvReac Type Severity Reaction Status Date / Time amoxicillin Allergy Intermediate RASH Verified 01/27/19 18:07 Penicillins Allergy Intermediate RASH Verified 01/27/19 18:07 pravastatin Allergy Intermediate MYALGIA Verified 01/27/19 18:07 simvastatin Allergy Intermediate MYALGIA Verified 01/27/19 18:07 Medications Home Medications Medication Instructions Recorded Confirmed Last Taken acetaminophen [Tylenol Extra 500 mg PO Q4 PRN 01/27/19 01/27/19 Unknown Strength] apixaban [Eliquis] 5 mg PO BID 01/27/19 01/27/19 01/27/19 08:00 aspirin [Aspir-81] 81 mg PO DAILY 01/27/19 01/27/19 01/27/19 atorvastatin 20 mg PO HS 01/27/19 01/27/19 01/26/19 cholecalciferol (vitamin D3) 2,000 unit PO DAILY 01/27/19 01/27/19 01/27/19 [Vitamin D3] cyanocobalamin (vitamin B-12) 1,000 mcg PO DAILY 01/27/19 01/27/19 01/27/19 [Vitamin B-12] diclofenac sodium 4 g TOPICAL QID 01/27/19 01/27/19 01/27/19 digoxin [Digox] 125 mcg PO DAILY 01/27/19 01/27/19 01/27/19 duloxetine 20 mg PO DAILY 01/27/19 01/27/19 01/27/19 ezetimibe 10 mg PO QDD 01/27/19 01/27/19 01/26/19 metoprolol succinate 100 mg PO BID 01/27/19 01/27/19 01/27/19 08:00 mirabegron [Myrbetriq] 25 mg PO DAILY 01/27/19 01/27/19 01/27/19 sennosides-docusate sodium 1 tab PO BID 01/27/19 01/27/19 01/27/19 08:00 [Senna-S] Active Medications Generic Name Dose Route Start Last Admin Trade Name Freq PRN Reason Stop Dose Admin Atorvastatin Calcium 20 mg 01/27/19 21:35 01/27/19 22:45 Lipitor PO 02/26/19 21:34 20 mg HS QUANG Administration Hydralazine HCl 2.5 mg 01/27/19 21:35 01/27/19 22:43 Hydralazine Hcl IV 02/26/19 21:34 2.5 mg Q6H PRN Administration SBP > 160 Dextrose/Lactated Ringer's 1,000 mls @ 60 mls/hr 01/27/19 20:15 01/27/19 22:54 D5w And Lactated Ringers IV 01/28/19 12:54 60 mls/hr .[id number] QUANG Administration Metoprolol Succinate 100 mg 01/27/19 21:35 01/27/19 22:45 Toprol Xl PO 02/26/19 21:34 100 mg BID QUANG Administration Morphine Sulfate 4 mg 01/27/19 21:35 01/28/19 05:27 Morphine Sulfate IV 02/10/19 21:34 4 mg Q2H PRN Administration SEVERE Pain (Scale 7,8,9,10) Oxycodone HCl 10 mg 01/27/19 21:35 01/28/19 01:59 Roxicodone Immediate Rel PO 02/10/19 21:34 10 mg Q4H PRN Administration SEVERE Pain (Scale 7,8,9,10) Senna/Docusate Sodium 2 tab 01/27/19 21:35 01/27/19 22:47 Senokot S PO 02/26/19 21:34 2 tab HS QUANG Administration Past Medical History Medical History Osteoporosis (Chronic) Atrial fibrillation CHF (congestive heart failure) (Resolved 03/19/14) Lumbar stenosis with neurogenic claudication (Resolved 03/16/14) Past Family History Family History Other Family history non-contributory Past Surgical History Surgical History S/P appendectomy S/P cataract surgery S/P lumbar laminectomy S/P total hip arthroplasty Social History Smoking Status: Never smoker Hx Alcohol Use: No Hx Substance Use: No Physical Exam Vital Signs Last Vital Signs Temp 98.2 F 01/27/19 23:07 Pulse 67 01/27/19 23:07 Resp 16 01/27/19 23:07 BP 152/72 H 01/28/19 03:07 Pulse Ox 95 01/27/19 23:07 Testing Electrocardiogram Date: 01/27/19 Sinus rhythm with Premature atrial complexes, rate 68 bpm Otherwise normal ECG When compared with ECG of 17-JAN-2017 04:46, Premature atrial complexes are now Present Chest X-Ray Date: 01/27/19 Findings: + NAD Echocardiogram Date: 11/01/16 � Sinus rhythm with occasional premature atrial complexes was present during the echocardiogram examination. � There is mild concentric left ventricular hypertrophy. � No regional wall motion abnormalities noted. � The left ventricle is hyperdynamic. � The qualitative LV Ejection Fraction = >70 %. � The right ventricle is normal in size and function. � Aortic valve sclerosis mild, without significant aortic valvular stenosis. � The anterior mitral valve is mildly calcified. � Significant mitral regurgitation is absent. � There is no mitral valve stenosis. � Grade I diastolic dysfunction, (abnormal relaxation pattern).
[2019-01-28] MEDS ORDERED: BUPIVACAINE 0.5 % 5 MG/1 ML PF 10ML VIAL ONE (07:00)
[2019-01-28 07:17] LABS: Calcium 8.6 mg/dl (8.5-10.1); Creatinine Clr Calc Pharmacy 59.9 ml/min; Est GFR (African American) 94.6; Est GFR (Non-African American) 81.6; Magnesium 1.9 mg/dl (1.8-2.4); Potassium 3.7 mmol/L (3.5-5.1)
[2019-01-28] MEDS: METOPROLOL SUCC 50MG EXT REL TAB PO SCH ×2 (07:42→21:12)
[2019-01-28] MEDS: DOCUSATE SODIUM/SENNA 50/8.6MG TAB PO SCH ×3 (07:43→21:12)
[2019-01-28] MEDS: CYANOCOBALAMIN 500 MCG TABLET (VITAMIN B-12) PO SCH (07:43)
[2019-01-28] MEDS: DULOXETINE HCL 20 MG CAP PO SCH (07:43)
[2019-01-28] MEDS: MIRABEGRON ER 25 MG TAB PO SCH (07:43)
[2019-01-28] MEDS ORDERED: PHENYLEPHRINE 100MCG/ML 5ML SYR ONE (14:04)
[2019-01-28] MEDS ORDERED: GLYCOPYRROLATE 0.2 MG/ML VIAL ONE (14:04)
[2019-01-28] MEDS ORDERED: DEXAMETHASONE SOD INJ 4 MG/ML VIAL ONE (14:04)
[2019-01-28] MEDS ORDERED: NEOSTIGMINE METHYLSULFATE 5 MG/5 ML SYR ONE (14:04)
[2019-01-28] MEDS ORDERED: ROCURONIUM BROMIDE 10 MG/ML 5 ML VIAL ONE (14:04)
[2019-01-28] MEDS ORDERED: LIDOCAINE HCL 2% 2 ML VIAL/AMP(20MG/ML) INFIL ONE (14:04)
[2019-01-28] MEDS ORDERED: ONDANSETRON INJ 2 MG/ML 2 ML VIAL ONE (14:04)
[2019-01-28] MEDS ORDERED: LARYING-O-JET KIT (LTA) ONE (14:04)
[2019-01-28] MEDS ORDERED: fentaNYL citrate 100 MCG/2 ML VIAL ONE (14:04)
[2019-01-28] MEDS ORDERED: ePHEDrine sulfate 50 MG/ML SYR ONE (14:04)
[2019-01-28] MEDS ORDERED: PROPOFOL IV EMULSION 10 MG/ML 20 ML VIAL IV ONE (14:04)
[2019-01-28] MEDS ORDERED: BACITRACIN INJ 50,000 UNIT VIAL ONE (14:31)
[2019-01-28] MEDS ORDERED: BUPIVACAINE/EPINEPHRINE 0.5% MPF 1:200,000 30 ML VIAL ONE (14:31)
--- NOTE | 2019-01-28 14:34 | Orthopedic Consultation ---
Date of Consultation January 28, 2019 Assessment & Plan (1) Hip fracture: npo at this time. She was seen by Dr. Emanuel as well We will plan on cemented hemiarthroplasty today. Procedure was explained including risks and benefits to surgery. Consent obtained. History of Present Illness Reason for Consultation: right hip fracture Attending Physician: Dustin Avendano History of Present Illness Lucinda is an 83 y/o female who fell yesterday suffering a right hip fx. She had previous L DALJIT by Dr. Emanuel in the past. She was admitted last night by they hospitalist service. She does have a h/o a. fib and a stroke and is on eliquis. She denies any other m/s complaints. Complete history reviewed and please refer to admission h & p Allergies Allergy/AdvReac Type Severity Reaction Status Date / Time amoxicillin Allergy Intermediate RASH Verified 01/27/19 18:07 Penicillins Allergy Intermediate RASH Verified 01/27/19 18:07 pravastatin Allergy Intermediate MYALGIA Verified 01/27/19 18:07 simvastatin Allergy Intermediate MYALGIA Verified 01/27/19 18:07 Home Medications Home Medications Medication Instructions Recorded Confirmed Type acetaminophen [Tylenol Extra 500 mg PO Q4 PRN 01/27/19 01/27/19 History Strength] apixaban [Eliquis] 5 mg PO BID 01/27/19 01/27/19 History aspirin [Aspir-81] 81 mg PO DAILY 01/27/19 01/27/19 History atorvastatin 20 mg PO HS 01/27/19 01/27/19 History cholecalciferol (vitamin D3) 2,000 unit PO DAILY 01/27/19 01/27/19 History [Vitamin D3] cyanocobalamin (vitamin B-12) 1,000 mcg PO DAILY 01/27/19 01/27/19 History [Vitamin B-12] diclofenac sodium 4 g TOPICAL QID 01/27/19 01/27/19 History digoxin [Digox] 125 mcg PO DAILY 01/27/19 01/27/19 History duloxetine 20 mg PO DAILY 01/27/19 01/27/19 History ezetimibe 10 mg PO QDD 01/27/19 01/27/19 History metoprolol succinate 100 mg PO BID 01/27/19 01/27/19 History mirabegron [Myrbetriq] 25 mg PO DAILY 01/27/19 01/27/19 History sennosides-docusate sodium 1 tab PO BID 01/27/19 01/27/19 History [Senna-S] Patient History Medical History Osteoporosis (Chronic) Atrial fibrillation CHF (congestive heart failure) (Resolved 03/19/14) Lumbar stenosis with neurogenic claudication (Resolved 03/16/14) Surgical History S/P appendectomy S/P cataract surgery S/P lumbar laminectomy S/P total hip arthroplasty Family History Other Family history non-contributory Social History Preferred Language: Urdu Communication Ability: Effective 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 She is able to DF/PF bilaterally. NVI. I did not do any motion of the right hip. Results & Data Vital Signs (Past 12 Hours) Vital Signs Temp Pulse Resp BP Pulse Ox 01/28/19 12:01 36.9 C 73 18 196/76 H 96 01/28/19 07:18 36.9 C 70 18 166/93 H 96 01/28/19 03:07 152/72 H Diagnostic Findings xrays show displaced femoral neck fx of right hip (1) Hip fracture Encounter type: initial encounter Fracture type: closed Laterality: right Qualified Code(s): S72.001A - Fracture of unspecified part of neck of right femur, initial encounter for closed fracture
--- NOTE | 2019-01-28 14:41 | History & Physical Bridge Note ---
Date of Service January 28, 2019 History & Physical Bridge Note I have examined the patient, reviewed the History & Physical and in the interval since the performance of the History & Physical I have noted the following changes of clinical significance: no changes noted
--- NOTE | 2019-01-28 15:03 | Cardiology Consultation ---
Date of Consultation January 28, 2019 Assessment & Plan (1) Fall: She seems to remember her fall quite well, she is difficult to follow because of her expressive a aphasia from her stroke but it seems pretty clear that she did not have lightheadedness or dizziness or loss of consciousness triggering the fall. I think it was a mechanical fall. (2) Atrial fibrillation: She has a history of well-documented atrial fibrillation which has been asymptomatic. She is currently in sinus rhythm so holding the anticoagulant for several days is not an issue. If you go back into atrial fibrillation would have to start it as soon as possible due to her history of stroke. I would also start it as soon as it is felt safe after surgery. If she goes into atrial fibrillation it might be reasonable to transfer her to telemetry, but as long as she remains stable with normal heart rates I do not think we need to transfer her. History of Present Illness Reason for Consultation: Paroxysmal atrial fibrillation Attending Physician: Dustin Avendano History of Present Illness This is a very pleasant 83-year-old woman who has a history of atrial fibrillation identified in 2013. This converted spontaneously to sinus rhythm during her initial hospitalization where it was identified. She had no further documentation of atrial fibrillation until 2017 when she had weakness and abdominal discomfort and was noted to be bradycardic with episodes of paroxysmal atrial fibrillation. She had an appendectomy at that time, several days later she went into atrial fibrillation identified on telemetry monitoring but was unaware of it. She was started on Eliquis at that time. She then presented in January 2017 with inability to walk, she was found to be having a stroke and was transferred to [facility]. She reports that she was taking Eliquis. We have been following her for arrhythmia subsequently, she has not been aware of having episodes although I suspect she has had some. She remains on Eliquis as an anticoagulant. She has some gait instability, in part from her stroke, and fell causing a leg fracture. She was admitted for that. Other than some discomfort in her legs she has no complaints, she denies palpitations, she denies lightheadedness or dizziness leading to the fall and denies syncope. Allergies Allergy/AdvReac Type Severity Reaction Status Date / Time amoxicillin Allergy Intermediate RASH Verified 01/27/19 18:07 Penicillins Allergy Intermediate RASH Verified 01/27/19 18:07 pravastatin Allergy Intermediate MYALGIA Verified 01/27/19 18:07 simvastatin Allergy Intermediate MYALGIA Verified 01/27/19 18:07 Home Medications Home Medications Medication Instructions Recorded Confirmed Type acetaminophen [Tylenol Extra 500 mg PO Q4 PRN 01/27/19 01/27/19 History Strength] apixaban [Eliquis] 5 mg PO BID 01/27/19 01/27/19 History aspirin [Aspir-81] 81 mg PO DAILY 01/27/19 01/27/19 History atorvastatin 20 mg PO HS 01/27/19 01/27/19 History cholecalciferol (vitamin D3) 2,000 unit PO DAILY 01/27/19 01/27/19 History [Vitamin D3] cyanocobalamin (vitamin B-12) 1,000 mcg PO DAILY 01/27/19 01/27/19 History [Vitamin B-12] diclofenac sodium 4 g TOPICAL QID 01/27/19 01/27/19 History digoxin [Digox] 125 mcg PO DAILY 01/27/19 01/27/19 History duloxetine 20 mg PO DAILY 01/27/19 01/27/19 History ezetimibe 10 mg PO QDD 01/27/19 01/27/19 History metoprolol succinate 100 mg PO BID 01/27/19 01/27/19 History mirabegron [Myrbetriq] 25 mg PO DAILY 01/27/19 01/27/19 History sennosides-docusate sodium 1 tab PO BID 01/27/19 01/27/19 History [Senna-S] Patient History Medical History Osteoporosis (Chronic) Atrial fibrillation CHF (congestive heart failure) (Resolved 03/19/14) Lumbar stenosis with neurogenic claudication (Resolved 03/16/14) Surgical History S/P appendectomy S/P cataract surgery S/P lumbar laminectomy S/P total hip arthroplasty Family History Other Family history non-contributory Social History Preferred Language: Nicaraguan Communication Ability: Effective Tap Grinder Required: No Current Living Situation: Alone Other Information That Helps Us Care for You: No Feels Safe at Home: Yes Safety Concerns: Feels Safe At This Time Smoking Status: Never smoker Hx Alcohol Use: No Hx Substance Use: No Physical Exam Physical Exam: Constitutional: Alert, cooperative and in no distress. HEENT: Unremarkable Neck: No jugular venous distention, carotid pulses are normal and equal bilaterally without bruits. Pulmonary: Clear to auscultation bilaterally. Cardiac: Regular rhythm with no murmur, gallop or rub. Abdomen: Soft, nontender with normal bowel sounds. Extremities: No edema. Distal pulses intact. Right hip fracture. Neurologic: No focal findings. Gait is steady. Skin: No rash, ecchymoses or petechiae. Results & Data Vital Signs (Past 12 Hours) Vital Signs Temp Pulse Resp BP Pulse Ox 01/28/19 14:10 176/113 H 01/28/19 12:01 36.9 C 73 18 196/76 H 96 01/28/19 07:18 36.9 C 70 18 166/93 H 96 01/28/19 03:07 152/72 H Diagnostic Findings Her presenting electrocardiogram shows sinus rhythm with no acute changes (1) Fall Encounter type: initial encounter Qualified Code(s): W19.XXXA - Unspecified fall, initial encounter
--- NOTE | 2019-01-28 16:39 | Post Operative Brief Note ---
Immediate Post Op Note v1 Date of Surgery January 28, 2019 Pre & Post Diagnosis Operation Date: 01/28/19 09:10 Pre-Op Diagnosis: Acute displaced and angulated subcapital fracture of the right femur. Post-Op Diagnosis: Acute displaced and angulated subcapital fracture of the right femur. Procedure Operation Date: 01/28/19 09:10 Actual Procedures p Right Bipolar Hip Prosthesis Cemented - El Emanuel MD Surgeon El Emanuel MD Commodity Lead Melissa, PAC Estimated Blood Loss 300 Findings Consistent with Post-Op Diagnosis Fluids 1600 cc Specimens Right Femoral Head Drains Flores Catheter (Patient arrived to OR with flores.) Anesthesia Type General Complications none Disposition Accompanied Patient To Recovery: Yes Disposition: Recovery Room
--- NOTE | 2019-01-28 17:22 | XRay Report ---
XR hip RT min 2V CLINICAL HISTORY: 83 years-old Female presenting with Post-Operative implant position. TECHNIQUE: Frontal and crosstable lateral views of the right hip were obtained. COMPARISON: 01/27/2019. FINDINGS: There has been interval total right hip arthroplasty. Expected soft tissue emphysema. Overlying skin kalin. No periprosthetic fracture or malalignment. Remainder of the visualized bony pelvis intact. IMPRESSION: Expected postsurgical appearance status post total right hip arthroplasty. Electronically signed by: Juan Chin M.D. 01/28/2019 5:21 PM
--- NOTE | 2019-01-28 17:29 | Anesthesiology Progress Note ---
Date of Service January 28, 2019 Anesthesia Post Procedure Vital Signs Vital Signs: Temp Pulse Pulse Pulse Resp BP BP 01/28/19 17:20 85 17 144/97 H 01/28/19 17:10 36.5 C 82 17 146/82 H 01/28/19 17:00 83 20 137/86 01/28/19 16:50 104 H 17 143/70 H 01/28/19 16:43 36.4 C L 109 H 18 155/77 H 01/28/19 14:10 176/113 H 01/28/19 12:01 36.9 C 73 18 196/76 H 01/28/19 07:18 36.9 C 70 18 166/93 H 01/28/19 03:07 152/72 H 01/28/19 00:02 181/75 H 01/27/19 23:07 36.8 C 67 16 190/77 H 01/27/19 21:24 36.8 C 80 18 205/87 H 01/27/19 21:07 76 18 181/81 H 01/27/19 20:40 76 18 181/81 H 01/27/19 18:31 01/27/19 18:13 69 18 211/95 H Pulse Ox 01/28/19 17:20 96 01/28/19 17:10 95 01/28/19 17:00 97 01/28/19 16:50 97 01/28/19 16:43 95 01/28/19 14:10 01/28/19 12:01 96 01/28/19 07:18 96 01/28/19 03:07 01/28/19 00:02 01/27/19 23:07 95 01/27/19 21:24 90 01/27/19 21:07 93 01/27/19 20:40 92 01/27/19 18:31 91 01/27/19 18:13 91 Pain Intensity Right Hip: Pain Intensity: 6 Transfer of Care Handoff Completed per policy Notes Mental Status: alert / awake / arousable Patient Amnestic to Procedure: Yes Nausea / Vomiting: adequately controlled Pain: adequately controlled Airway Patency, RR, SpO2: stable & adequate BP & HR: stable & adequate Hydration State: stable & adequate Anesthetic Complications: no major complications apparent
[2019-01-28] MEDS ORDERED: ONDANSETRON INJ 2 MG/ML 2 ML VIAL IV PRN (17:58)
[2019-01-28] MEDS ORDERED: BISACODYL 10 MG SUPP PR PRN (17:58)
[2019-01-28] MEDS ORDERED: NALOXONE HCL 0.4 MG/1 ML VIAL/CARP IV PRN (17:58)
[2019-01-28] MEDS ORDERED: HYDROmorphone INJ 0.5 MG/0.5 ML SYR IV PRN (17:58)
[2019-01-28] MEDS ORDERED: MAGNESIUM HYDROXIDE SUSP 30 ML UDC PO PRN (17:58)
[2019-01-28] MEDS: EZETIMIBE 10 MG TABLET PO SCH (18:26)
[2019-01-28] MEDS: DIGOXIN 0.125 MG TAB PO SCH (18:26)
[2019-01-28] MEDS: CEFAZOLIN 1000MG 1,000 MG/7.5 ML SYR IV SCH (18:37)
[2019-01-28] MEDS: ATORVASTATIN 20 MG TAB PO SCH (21:12)
[2019-01-28] MEDS: SENNA 8.6 MG TAB PO SCH (21:13)
--- NOTE | 2019-01-28 22:31 | Operative Report ---
DATE OF OPERATION: 01/28/2019 DATE OF PROCEDURE: 01/28/2019 SURGEON: El Emanuel MD SAFETY LEAD: GETACHEW Dewitt PREOPERATIVE DIAGNOSIS: Right displaced femoral neck fracture. POSTOPERATIVE DIAGNOSIS: Right displaced femoral neck fracture. PROCEDURE PERFORMED: Right cemented bipolar hip arthroplasty. COMPLICATIONS: None. ESTIMATED BLOOD LOSS: 300 mL. FLUID REPLACEMENT: 1600 mL of crystalloid fluid replacement. SPECIMENS: Right femoral head sent for pathology. ANESTHESIA: General. OPERATIVE INDICATIONS: The patient is an 83-year-old female who has been a long-term patient of mine who sustained a fall yesterday. She had acute onset of hip pain and was unable to ambulate. She was brought to the Emergency Room where x-rays revealed displaced femoral neck fracture. She is admitted by the hospitalist service, medically optimized and indicated for surgical treatment. The patient is an assisted ambulator. She walks with a cane. No preexisting hip pain on this side. 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 OPERATIVE IMPLANTS: Operative implants consisted of: 1. A Biomet generation 4 size 9 polished high offset femoral stem. 2. A +3/28 mm articular ball. 3. A 46 mm bipolar shell and liner. 4. A 10 centralizer. 5. A small cement restrictor. OPERATIVE PROCEDURE: The patient taken to the operating room, identified and placed on the operative table in supine position. All contact areas were appropriately padded. IV antibiotics were provided by anesthesia team. A general anesthetic was implemented as the patient is on Eliquis for thrombosis prophylaxis due to some AFib. The patient received IV antibiotics. The patient was then placed in the left lateral decubitus position. An axillary roll was placed. [facility] was used for positioning. The right hip and leg were then prepped and draped in usual sterile fashion. A posterolateral approach to the right hip was then performed through a curvilinear incision centered over the greater trochanter. Sharp dissection was carried through the subcutaneous tissues down over the IT band and gluteal fascia. The IT band and gluteal fascia were incised longitudinally in line with skin incision. The greater trochanteric bursa was excised. The piriformis and external rotators were tagged and taken off the posterior aspect of the hip joint capsule. Great care was taken throughout the procedure to protect the sciatic nerve at all times. Posterior capsulotomy was then performed leaving a large flap for later repair. Hip was internally rotated. Femoral neck osteotomy cut was then made about a centimeter above the lesser trochanter, which was below the base of the fracture. The remaining femoral neck and femoral head was removed. I sized the femoral head and sized the acetabulum to size 46. Attention was then drawn to the femur. The proximal femur was entered with a cookie cutter followed by canal finder and lateralizing reamer. I then broached beginning with a size 7 and progressed up to a 9. A pretty good fit with a 9. We trialed the hip and the +3 articular ball provided full stability and full extension and external rotation and flexion to 90 degrees, internal rotation over 70 degrees. Leg lengths seemed appropriate. We elected to place a high offset stem to maximize stability in this elderly patient with right hemiparesis. We elected to place these implants. All trial implants were removed. A cement restrictor was placed distally. A double batch of Palacos G cement was mixed and injected the canal with the cement and then placed a size 9 generation 4 highly polished high offset femoral stem. I tried to maximize anteversion. All extraneous cement was removed. Once the cement hardened, a +3/28 mm articular ball was placed followed by a 46 mm bipolar shell and liner. Hip was located and once again found to be stable. Attention was then drawn toward closing. The posterior capsule was closed with a #2 Ti-Cron suture in a [id number] fashion. The external rotators were then reapproximated to the posterior aspect of the hip abductors with #2 Ti-Cron suture. The IT band and gluteal fascia were then closed with #1 PDS suture in running fashion and subcutaneous tissue, then closed in 2 layers, the deep layer of 0 Vicryl suture and subcutaneous tissue with 2-0 Dexon suture in a buried interrupted fashion. Skin was closed with skin kalin. Leg was then cleaned and dried and a sterile dressing of Xeroform, 4 x 4, sterile ABD pad and foam tape was applied. The patient was then brought out of general anesthesia and transferred to the recovery room in stable condition. The patient tolerated the procedure well with no complications. All needle and sponge counts were correct at the end of the operation. I attest to the content of the Intraoperative Record and any orders documented therein. Any exception s are noted below.
[2019-01-28] MEDS: LACTATED RINGER'S 1,000 ML IV SCH (22:32)
--- NOTE | 2019-01-28 23:02 | Hospitalist Progress Note ---
Date of Service January 28, 2019 Assessment & Plan (1) Hip fracture: 83 y/o F Hx chronic diastolic CHF, chronic AF, HTN, HLD, NSVT, osteoporosis. Presents following a mechanical fall onto her L side where she sustained a subcapital femoral fracture. She denies preceding symptoms such as lightheadedness, palpitations or CP. The pt's SBP was over 200 on arrival to the ER which was likely related to pain. 1) Hip fracture - admitted per protocol. Patient is NPO after midnight. She is going for surgery. She has been evaluated by cardio and has had risk assessed. She ill be going for surgery shortly. Patient is currently off xarelto. 2) Chronic AF and history of NSVT - cont Metoprolol 100BID and Dig 0.125 daily - restart anticoagulation at earliest possible time as she does have a history of CVA and Eliquis is obviously held for surgery 3) HTN, HLD - cont Metop, Atorvastatin - Ezitimibe held Full code - Eliquis anticoagulation Spent 35 minutes in management of patient Subjective 83 yo female reports no new symptoms. Family reports she appeared more confused after taking her pain medicine. But when I was in the room, family stated she was back to her baseline. Patient continues to have pain in her affected hip. Review of Systems Review of Systems: All systems reviewed & are unremarkable except as noted in HPI & below Physical Exam Physical Exam: General: AAO x 3 - distressed due to hip pain ENT: No erythema or exudates, no thrush Eyes: HEMANTH, EOMI Head and neck: Normocephalic, atraumatic, No JVD, neck is supple. Chest/heart: Nontender, S1,2, irregular, no murmurs, no gallops Lungs: CTAB, no wheezing or crackles Abdomen: Nontender, nondistended, BS+ Neuro: AAO x 3, speech is clear, no unilateral weakness or loss of sensation, coordination intact, ocular eye movements were normal. Musculoskeletal: Did not palpate hip - there was no LE rotation - pulses + Skin: No acute rashes or ulcers Extremities: No clubbing, cyanosis, edema Results & Data Vital Signs (Past 12 Hours) Vital Signs Temp Pulse Pulse Pulse Pulse Resp BP 01/28/19 22:59 36.7 C 73 14 134/61 01/28/19 20:39 36.5 C 72 18 109/61 01/28/19 19:38 69 17 114/65 01/28/19 18:26 68 01/28/19 18:25 36.8 C 63 16 117/62 01/28/19 17:55 36.7 C 65 16 110/56 L 01/28/19 17:45 36.8 C 67 16 107/56 L 01/28/19 17:35 71 16 122/60 01/28/19 17:20 85 17 144/97 H 01/28/19 17:10 36.5 C 82 17 146/82 H 01/28/19 17:00 83 20 137/86 01/28/19 16:50 104 H 17 143/70 H 01/28/19 16:43 36.4 C L 109 H 18 155/77 H 01/28/19 14:10 176/113 H 01/28/19 12:01 36.9 C 73 18 196/76 H Pulse Ox 01/28/19 22:59 97 01/28/19 20:39 96 01/28/19 19:38 95 01/28/19 18:26 01/28/19 18:25 92 01/28/19 17:55 16 L 01/28/19 17:45 92 01/28/19 17:35 98 01/28/19 17:20 96 01/28/19 17:10 95 01/28/19 17:00 97 01/28/19 16:50 97 01/28/19 16:43 95 01/28/19 14:10 01/28/19 12:01 96 (1) Hip fracture Encounter type: initial encounter Fracture type: closed Laterality: right Qualified Code(s): S72.001A - Fracture of unspecified part of neck of right femur, initial encounter for closed fracture
[2019-01-29] MEDS: CEFAZOLIN 1000MG 1,000 MG/7.5 ML SYR IV SCH (01:32)
[2019-01-29] MEDS: OXYCODONE HCL IR 5 MG TAB (IMMEDIATE RELEASE) PO PRN (01:36)
[2019-01-29 06:30] LABS: BUN Creatinine Ratio 26.7 (10-20); Creatinine Clr Calc Pharmacy 60.7 ml/min; Est GFR (African American) 95.1; Potassium 3.5 mmol/L (3.5-5.1)
[2019-01-29 06:31] LABS: Basophils # (auto) 0.01 K/uL (0-0.2); Basophils % (auto) 0.1 %; Eosinophils # (auto) 0.02 K/uL (0-0.5); Eosinophils % (auto) 0.1 %; Hematocrit (blood only) 34.6 % (37-47); Hemoglobin 11.8 g/dL (12.0-16.0); Immature Granulocytes # (auto) 0.04 K/uL (0.00-0.02); Immature Granulocytes % (auto) 0.3 %; Lymphocytes # (auto) 0.77 K/uL (1.2-3.4); Mean Corpuscular Hgb Conc 34.1 g/dL (32-36); Mean Corpuscular Volume 94.3 fL (80-100); Mean Platelet Volume 10.5 fL (7.4-10.4); Monocytes # (auto) 1.57 K/uL (0.11-0.59); Monocytes % (auto) 10.2 %; Neutrophils # (auto) 12.99 K/uL (1.4-6.5); Neutrophils % (auto) 84.3 %; Platelet Count 110 K/uL (130-400); RDW Coefficient of Variation 13.8 % (11.5-14.5); RDW Standard Deviation 47.8 fL (36.4-46.3); Red Blood Count 3.67 M/uL (4.2-5.4)
[2019-01-29] MEDS: MIRABEGRON ER 25 MG TAB PO SCH (08:09)
[2019-01-29] MEDS: CYANOCOBALAMIN 500 MCG TABLET (VITAMIN B-12) PO SCH (08:09)
[2019-01-29] MEDS: DULOXETINE HCL 20 MG CAP PO SCH (08:10)
[2019-01-29] MEDS: METOPROLOL SUCC 50MG EXT REL TAB PO SCH ×2 (08:10→20:22)
[2019-01-29] MEDS: DOCUSATE SODIUM/SENNA 50/8.6MG TAB PO SCH ×3 (08:10→20:22)
--- NOTE | 2019-01-29 08:44 | Cardiology Progress Note ---
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 I think it was a mechanical fall. (2) Atrial fibrillation: She has a history of well-documented atrial fibrillation which has been asymptomatic. She is currently in sinus rhythm so holding the anticoagulant for several days is not probably too much of an issue. Based on her exam I believe she remains in sinus rhythm. If she goes back into atrial fibrillation we would have to start it as soon as possible due to her history of stroke. I would also start it as soon as it is felt safe after surgery. If she goes into atrial fibrillation it might be reasonable to transfer her to telemetry, but as long as she remains stable with normal heart rates I do not think we need to transfer her. Subjective She seems to be doing well post surgery, she does not appear to be in pain but with her expressive aphasia it is difficult to obtain history and she does not seem to be able to tell me specifically that she is not having pain. She does not seem to have any cardiovascular symptoms. Physical Exam Physical Exam: Constitutional: Alert, cooperative and in no distress. Expressive a aphasia unchanged. Pulmonary: Clear to auscultation bilaterally. Cardiac: Regular rhythm with a soft holosystolic murmur at the apex, no gallop or rub. Abdomen: Soft, nontender with normal bowel sounds. Extremities: No edema. Right hip bandaged Skin: No rash, ecchymoses or petechiae. Results & Data Vital Signs (Past 12 Hours) Vital Signs Temp Pulse Pulse Resp BP Pulse Ox 01/29/19 07:06 37.7 C H 95 H 14 130/57 L 92 01/29/19 03:29 36.8 C 89 16 146/71 H 91 01/28/19 22:59 36.7 C 73 14 134/61 97 (1) Fall Encounter type: initial encounter Qualified Code(s): W19.XXXA - Unspecified fall, initial encounter
--- NOTE | 2019-01-29 10:30 | XRay Report ---
XR chest 1V portable HISTORY: 83 years-old Female fever, confusion acute fever with altered mental status COMPARISON: Chest radiograph 01/27/2019 TECHNIQUE: Portable AP view of the chest FINDINGS: Cardiomediastinal and hilar silhouettes are unchanged. Calcification of the thoracic aortic arch. No pneumothorax, pleural effusion or overt pulmonary edema. Ill-defined linear opacity of the left midlu ng, new from prior. Degenerative changes of the shoulders and spine. IMPRESSION: Linear ill-defined left midlung opacity suggests atelectasis. Pneumonitis also within the differential. The above report was generated using voice recognition software. It may contain grammatical, syntax o r spelling errors. Electronically signed by: Tex Glass M.D. 01/29/2019 10:29 AM
[2019-01-29] MEDS: LACTATED RINGER'S 1,000 ML IV SCH (11:00)
--- NOTE | 2019-01-29 12:53 | Hospitalist Progress Note ---
Date of Service January 29, 2019 Assessment & Plan (1) Hip fracture: 83 y/o F Hx chronic diastolic CHF, chronic AF, HTN, HLD, NSVT, osteoporosis. Presents following a mechanical fall onto her L side where she sustained a subcapital femoral fracture. She denies preceding symptoms such as lightheadedness, palpitations or CP. The pt's SBP was over 200 on arrival to the ER which was likely related to pain. 1) Hip fracture - admitted per protocol. Acute displaced and angulated subcapital fracture of the right femur Patient s/p Right cemented bipolar hip arthroplasty. Patient reports no new symptoms. Restart xarelto in the evening. 2) Chronic AF and history of NSVT - cont Metoprolol 100BID and Dig 0.125 daily - restart anticoagulation this evening. 3) HTN, HLD - cont Metop, Atorvastatin - Ezitimibe held Full code - Eliquis anticoagulation Spent 25 minutes in management of patient Subjective Patient reports feeling well in regards to pain. However, patient is having worse expressive aphasia today. Patient however does not communicate any other symptoms today. Review of Systems Review of Systems: All systems reviewed & are unremarkable except as noted in HPI & below Physical Exam Physical Exam: General: Awake and Alert- Patient appears comfortbale in bed. ENT: No erythema or exudates, no thrush Eyes: HEMANTH, EOMI Head and neck: Normocephalic, atraumatic, No JVD, neck is supple. Chest/heart: Nontender, S1,2, irregular, no murmurs, no gallops Lungs: CTAB, no wheezing or crackles Abdomen: Nontender, nondistended, BS+ Neuro: expressive aphasia, no unilateral weakness or loss of sensation, coordination intact, ocular eye movements were normal. Musculoskeletal: pulses + Skin: No acute rashes or ulcers Extremities: No clubbing, cyanosis, edema Results & Data Vital Signs (Past 12 Hours) Vital Signs Temp Pulse Pulse Resp BP Pulse Ox Pulse Ox 01/29/19 12:11 94 01/29/19 11:08 37.2 C 85 15 148/67 H 94 01/29/19 07:06 37.7 C H 95 H 14 130/57 L 92 01/29/19 03:29 36.8 C 89 16 146/71 H 91 (1) Hip fracture Encounter type: initial encounter Fracture type: closed Laterality: right Qualified Code(s): S72.001A - Fracture of unspecified part of neck of right femur, initial encounter for closed fracture
--- NOTE | 2019-01-29 14:18 | Progress Note ---
DATE: 01/29/2019 SUBJECTIVE: An 83-year-old white female postop day 1 from a right cemented bipolar hip arthroplasty for fracture. She seems to be doing okay. A little bit difficult to communicate with her speech issues. She denies any significant pain this afternoon. OBJECTIVE: VITAL SIGNS: Temperature 37.2. Vital signs stable. GENERAL: Physical examination shows a pleasant elderly female. She is lying in bed. She is receiving some oxygen. She looks pretty comfortable. EXTREMITIES: Examination of the right leg reveals the leg to be well aligned. Leg lengths are equal. Hip is located. Dressing is clean, dry and intact. She is neurologically intact. LABORATORY DATA: Hemoglobin is 11.8 and hematocrit 34.6. White cell count 15.40. Electrolytes are stable. ASSESSMENT: An 83-year-old white female with multiple medical comorbidities with a history of stroke in the past as well as atrial fibrillation and postop day 1 from right cemented bipolar hip arthroplasty for fracture. She is doing pretty well. Her pain seems to be controlled. No new complaints. PLAN: 1. DVT prophylaxis including thigh-high TEDs, SCDs, and put her back on Eliquis. We would recommend a prophylactic dose for these next 2 days and then 72 hours postop. She can go to a full therapeutic dose. 2. PT/OT. Weight bear as tolerated. Right total hip protocol. 3. Pain control. Seems to be doing pretty well with current pain regimen. 4. Medical management as per the medicine service. 5. Disposition: Plan to discharge. She will likely need a rehab stay. administrative services director involved and will help arrange this.
[2019-01-29] MEDS: DIGOXIN 0.125 MG TAB PO SCH (15:34)
[2019-01-29] MEDS: EZETIMIBE 10 MG TABLET PO SCH (15:34)
[2019-01-29] MEDS: ACETAMINOPHEN 500 MG TAB PO PRN (20:21)
[2019-01-29] MEDS: SENNA 8.6 MG TAB PO SCH (20:21)
[2019-01-29] MEDS: ATORVASTATIN 20 MG TAB PO SCH (20:22)
[2019-01-29] MEDS: APIXABAN 2.5 MG TAB PO SCH (20:22)
[2019-01-30] MEDS: CYANOCOBALAMIN 500 MCG TABLET (VITAMIN B-12) PO SCH (07:57)
[2019-01-30] MEDS: MIRABEGRON ER 25 MG TAB PO SCH (07:57)
[2019-01-30] MEDS: DULOXETINE HCL 20 MG CAP PO SCH (07:57)
[2019-01-30] MEDS: METOPROLOL SUCC 50MG EXT REL TAB PO SCH ×2 (07:57→20:39)
[2019-01-30] MEDS: APIXABAN 2.5 MG TAB PO SCH ×2 (07:58→20:39)
[2019-01-30] MEDS: DOCUSATE SODIUM/SENNA 50/8.6MG TAB PO SCH ×3 (07:58→20:43)
--- NOTE | 2019-01-30 08:08 | Progress Note ---
DATE: 01/30/2019 SUBJECTIVE: An 83-year-old white female postop day 2 from right cemented bipolar hip arthroplasty for fracture. She looks much better today. Looks like she has got mentally and physically back to baseline. No new complaints. She is having some right hip pain. OBJECTIVE: VITAL SIGNS: Temperature 36.9. Vital signs stable. GENERAL: Physical examination shows a pleasant elderly frail female. She is lying in bed, looks reasonably comfortable. She seems awake, alert and appropriate. EXTREMITIES: Examination of the right hip reveals leg lengths to be equal. Dressing is clean, dry and intact. She can dorsiflex and plantarflex her foot appropriately. She is otherwise neurologically stable. 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 LABORATORY DATA: None. ASSESSMENT: An 83-year-old white female postop day 2 from right cemented bipolar hip arthroplasty for fracture. She is doing reasonably well. Looks to be back to baseline. PLAN: 1. DVT prophylaxis including thigh-high TEDs, SCDs. She is back on anticoagulation as per history of AFib. We will put her on a prophylactic dose and then increase to therapeutic dose at 72 hours postop. 2. PT/OT. Weight bear as tolerated. Right total hip protocol. 3. Pain control, doing okay with current pain regimen. 4. Medical management as per the medicine service. 5. Disposition: She is orthopedically okay for discharge any time medically stable. I need to see her back 2 weeks out from surgery. She is weightbearing as tolerated on this right leg. Any orthopedic questions can be directed to me at [phone].
[2019-01-30] MEDS: DIGOXIN 0.125 MG TAB PO SCH (16:16)
[2019-01-30] MEDS: EZETIMIBE 10 MG TABLET PO SCH (16:16)
[2019-01-30] MEDS: POLYETHYLENE (MIRALAX) 17 GM PACK PO SCH (19:43)
[2019-01-30] MEDS: ATORVASTATIN 20 MG TAB PO SCH (20:39)
--- NOTE | 2019-01-30 23:13 | Hospitalist Progress Note ---
Date of Service January 30, 2019 Assessment & Plan (1) Hip fracture: 83 y/o F Hx chronic diastolic CHF, chronic AF, HTN, HLD, NSVT, osteoporosis. Presents following a mechanical fall onto her L side where she sustained a subcapital femoral fracture. She denies preceding symptoms such as lightheadedness, palpitations or CP. The pt's SBP was over 200 on arrival to the ER which was likely related to pain. 1) Hip fracture - admitted per protocol. Acute displaced and angulated subcapital fracture of the right femur Patient s/p Right cemented bipolar hip arthroplasty. Patient reports no new symptoms. Patient is back to her baseline, awaiting placement. 2) Chronic AF and history of NSVT - cont Metoprolol 100BID and Dig 0.125 daily - restart anticoagulation on PM of 01/29 3) HTN, HLD - cont Metop, Atorvastatin - Ezitimibe held Full code - Eliquis anticoagulation Spent 25 minutes in management of patient Subjective Patient reports doing well. Friends and family at bedside. Patient reports doing better. She is awake tolerating her diet and is back to her baseline. Review of Systems Review of Systems: All systems reviewed & are unremarkable except as noted in HPI & below Physical Exam Physical Exam: General: Awake and Alert- Patient appears comfortable in bed. ENT: No erythema or exudates, no thrush Eyes: HEMANTH, EOMI Head and neck: Normocephalic, atraumatic, No JVD, neck is supple. Chest/heart: Nontender, S1,2, irregular, no murmurs, no gallops Lungs: CTAB, no wheezing or crackles Abdomen: Nontender, nondistended, BS+ Neuro: expressive aphasia, no unilateral weakness or loss of sensation, coordination intact, ocular eye movements were normal. Musculoskeletal: pulses + Skin: No acute rashes or ulcers Extremities: No clubbing, cyanosis, edema Results & Data Vital Signs (Past 12 Hours) Vital Signs Temp Pulse Pulse Pulse Resp BP Pulse Ox 01/30/19 20:38 78 135/63 01/30/19 16:20 98 01/30/19 16:16 75 01/30/19 16:15 75 01/30/19 15:33 36.8 C 73 17 149/68 H 98 01/30/19 12:05 36.5 C 72 17 142/76 H 100 01/30/19 11:16 Pulse Ox Pulse Ox Pulse Ox 01/30/19 20:38 01/30/19 16:20 01/30/19 16:16 01/30/19 16:15 01/30/19 15:33 01/30/19 12:05 01/30/19 11:16 96 97 98 (1) Hip fracture Encounter type: initial encounter Fracture type: closed Laterality: right Qualified Code(s): S72.001A - Fracture of unspecified part of neck of right femur, initial encounter for closed fracture
[2019-01-31] MEDS: POLYETHYLENE (MIRALAX) 17 GM PACK PO SCH ×3 (00:17→12:40)
[2019-01-31] MEDS: DOCUSATE SODIUM/SENNA 50/8.6MG TAB PO SCH ×3 (08:01→20:56)
[2019-01-31] MEDS: CYANOCOBALAMIN 500 MCG TABLET (VITAMIN B-12) PO SCH (08:01)
[2019-01-31] MEDS: METOPROLOL SUCC 50MG EXT REL TAB PO SCH ×2 (08:01→20:56)
[2019-01-31] MEDS: APIXABAN 2.5 MG TAB PO SCH ×2 (08:01→20:56)
[2019-01-31] MEDS: MIRABEGRON ER 25 MG TAB PO SCH (08:01)
[2019-01-31] MEDS: DULOXETINE HCL 20 MG CAP PO SCH (08:02)
--- NOTE | 2019-01-31 08:18 | Progress Note ---
DATE: 01/31/2019 SUBJECTIVE: An 83-year-old white female postop day 3 from right bipolar hip replacement for fracture. She is doing pretty well. No pain at all while resting in bed. No chest pain or shortness of breath. No other aches or pains. No other injuries reported. OBJECTIVE: VITAL SIGNS: Temperature 36.6. Vital signs stable. GENERAL: Physical examination shows a pleasant elderly female. She is lying in bed, looks pretty comfortable. EXTREMITIES: Examination of the right hip and leg reveals the dressing to be clean, dry and intact. Hip is located. She can dorsiflex and plantarflex her foot appropriately. She is neurologically stable. ASSESSMENT: An 83-year-old white female with multiple medical comorbidities postop day 3 from right cemented bipolar hip arthroplasty for fracture. Orthopedically, she is doing well and seems to be back to her baseline medically as well. Her pain is controlled. Hip is located. She is neurologically intact. PLAN: 1. DVT prophylaxis including thigh-high TEDs, SCDs, and Eliquis. May increase to therapeutic dose if needed 72 hours post-op 2. PT/OT. Weight bear as tolerated. Right total hip protocol. 3. Pain control, doing well with current pain regimen. 4. Medical management as per the medicine service. 5. Disposition: She is orthopedically okay for discharge any time. I need to see her back 2 weeks out from surgery date. Any orthopedic questions can be directed to me at [phone]. MTDD
[2019-01-31] MEDS: DIGOXIN 0.125 MG TAB PO SCH (16:35)
[2019-01-31] MEDS: EZETIMIBE 10 MG TABLET PO SCH (16:35)
[2019-01-31] MEDS: ACETAMINOPHEN 500 MG TAB PO PRN (16:38)
[2019-01-31] MEDS: ATORVASTATIN 20 MG TAB PO SCH (20:56)
[2019-01-31] MEDS: OXYCODONE HCL IR 5 MG TAB (IMMEDIATE RELEASE) PO PRN (20:57)
--- NOTE | 2019-01-31 23:55 | Hospitalist Progress Note ---
Date of Service January 31, 2019 Assessment & Plan (1) Hip fracture: 83 y/o F Hx chronic diastolic CHF, chronic AF, HTN, HLD, NSVT, osteoporosis. Presents following a mechanical fall onto her L side where she sustained a subcapital femoral fracture. She denies preceding symptoms such as lightheadedness, palpitations or CP. The pt's SBP was over 200 on arrival to the ER which was likely related to pain. 1) Hip fracture - admitted per protocol. Acute displaced and angulated subcapital fracture of the right femur Patient s/p Right cemented bipolar hip arthroplasty. Patient reports no new symptoms. Patient is back to her baseline, awaiting placement. 2) Chronic AF and history of NSVT - cont Metoprolol 100BID and Dig 0.125 daily - restart anticoagulation on PM of 01/29 3) HTN, HLD - cont Metop, Atorvastatin - Ezitimibe held Full code - Eliquis anticoagulation Spent 25 minutes in management of patient Patient is awaiting placement. Subjective Patient and family report she is back to baseline. Patient has no new complaints. Review of Systems Review of Systems: All systems reviewed & are unremarkable except as noted in HPI & below Physical Exam Physical Exam: General: Awake and Alert- Patient appears comfortable in bed. ENT: No erythema or exudates, no thrush Eyes: HEMANTH, EOMI Head and neck: Normocephalic, atraumatic, No JVD, neck is supple. Chest/heart: Nontender, S1,2, irregular, no murmurs, no gallops Lungs: CTAB, no wheezing or crackles Abdomen: Nontender, nondistended, BS+ Neuro: expressive aphasia, no unilateral weakness or loss of sensation, coordination intact, ocular eye movements were normal. Musculoskeletal: pulses + Skin: No acute rashes or ulcers Extremities: No clubbing, cyanosis, neisha Results & Data Vital Signs (Past 12 Hours) Vital Signs Temp Pulse Pulse Pulse Pulse Resp BP 01/31/19 23:24 36.6 C 75 14 01/31/19 20:54 80 01/31/19 16:35 72 01/31/19 16:00 01/31/19 15:53 37.5 C 81 18 148/67 H 01/31/19 12:00 BP Pulse Ox Pulse Ox 01/31/19 23:24 117/64 98 01/31/19 20:54 137/67 01/31/19 16:35 01/31/19 16:00 90 01/31/19 15:53 92 01/31/19 12:00 93 (1) Hip fracture Encounter type: initial encounter Fracture type: closed Laterality: right Qualified Code(s): S72.001A - Fracture of unspecified part of neck of right femur, initial encounter for closed fracture
[2019-02-01] MEDS: OXYCODONE HCL IR 5 MG TAB (IMMEDIATE RELEASE) PO PRN ×2 (03:48→09:05)
[2019-02-01] MEDS: CYANOCOBALAMIN 500 MCG TABLET (VITAMIN B-12) PO SCH (08:57)
[2019-02-01] MEDS: METOPROLOL SUCC 50MG EXT REL TAB PO SCH ×2 (08:57→20:12)
[2019-02-01] MEDS: APIXABAN 2.5 MG TAB PO SCH ×2 (08:57→20:12)
[2019-02-01] MEDS: MIRABEGRON ER 25 MG TAB PO SCH (08:58)
[2019-02-01] MEDS: DULOXETINE HCL 20 MG CAP PO SCH (08:58)
[2019-02-01] MEDS: DOCUSATE SODIUM/SENNA 50/8.6MG TAB PO SCH ×3 (08:59→20:12)
--- NOTE | 2019-02-01 12:12 | Progress Note ---
DATE: 02/01/2019 SUBJECTIVE: An 83-year-old white female postop day 4 from right cemented bipolar hip arthroplasty for fracture. She is doing pretty well. Pain seems to be getting better. No particular complaints at all. Denies any significant pain. OBJECTIVE: VITAL SIGNS: Temperature 36.5. Vital signs stable. GENERAL: Physical examination shows a pleasant elderly female. She is lying in bed, I had to wake her this morning. She is awake, alert and appropriate. EXTREMITIES: Examination of the right leg reveals the incision to be clean, dry and intact. No significant drainage. Thigh is soft and supple. Hip is located. She is neurologically stable. ASSESSMENT: An 83-year-old white female now 4 days out from a right cemented bipolar hip arthroplasty for fracture. Orthopedically, she is doing well. Getting better daily. Medically, she seems to be about baseline. PLAN: 1. DVT prophylaxis including thigh-high TEDs, SCDs, and back on her Eliquis that she was on preoperatively. 2. PT/OT. The patient can weightbear as tolerated, right lower extremity. She needs to obey hip precautions. 3. Medical management as per the medicine service. 4. Disposition: She is orthopedically acceptable for discharge any time. I need to see her back 2 weeks from her surgery date. Any orthopedic questions can be directed to me at [phone].
[2019-02-01] MEDS: DIGOXIN 0.125 MG TAB PO SCH (16:22)
[2019-02-01] MEDS: EZETIMIBE 10 MG TABLET PO SCH (16:22)
[2019-02-01] MEDS: ATORVASTATIN 20 MG TAB PO SCH (20:12)
--- NOTE | 2019-02-01 22:36 | Hospitalist Progress Note ---
Date of Service February 01, 2019 Assessment & Plan (1) Hip fracture: 83 y/o F Hx chronic diastolic CHF, chronic AF, HTN, HLD, NSVT, osteoporosis. Presents following a mechanical fall onto her L side where she sustained a subcapital femoral fracture. She denies preceding symptoms such as lightheadedness, palpitations or CP. The pt's SBP was over 200 on arrival to the ER which was likely related to pain. 1) Hip fracture - admitted per protocol. Acute displaced and angulated subcapital fracture of the right femur Patient s/p Right cemented bipolar hip arthroplasty. Patient reports no new symptoms. Patient is back to her baseline, awaiting placement. 2) Chronic AF and history of NSVT - cont Metoprolol 100BID and Dig 0.125 daily - restart anticoagulation on PM of 01/29 3) HTN, HLD - cont Metop, Atorvastatin - Ezitimibe held Full code - Eliquis anticoagulation Patient is awaiting placement, likely will be completed on Saturday.. Subjective Patient in bed. She has no new complaints. Review of Systems Review of Systems: All systems reviewed & are unremarkable except as noted in HPI & below Physical Exam Physical Exam: General: Awake and Alert- Patient appears comfortable in bed. ENT: No erythema or exudates, no thrush Eyes: HEMANTH, EOMI Head and neck: Normocephalic, atraumatic, No JVD, neck is supple. Chest/heart: Nontender, S1,2, irregular, no murmurs, no gallops Lungs: CTAB, no wheezing or crackles Abdomen: Nontender, nondistended, BS+ Neuro: expressive aphasia, no unilateral weakness or loss of sensation, coordination intact, ocular eye movements were normal. Musculoskeletal: pulses + Skin: No acute rashes or ulcers. Incision over right hip appears clean, no erythema noted. Extremities: No clubbing, cyanosis, edema Results & Data Vital Signs (Past 12 Hours) Vital Signs Temp Pulse Pulse Pulse Pulse Resp BP 02/01/19 20:10 83 137/86 02/01/19 16:22 74 02/01/19 16:21 74 02/01/19 16:15 02/01/19 15:01 36.7 C 72 18 122/70 Pulse Ox Pulse Ox 02/01/19 20:10 02/01/19 16:22 02/01/19 16:21 02/01/19 16:15 96 02/01/19 15:01 95 (1) Hip fracture Encounter type: initial encounter Fracture type: closed Laterality: right Qualified Code(s): S72.001A - Fracture of unspecified part of neck of right femur, initial encounter for closed fracture
[2019-02-01] MEDS: ACETAMINOPHEN 500 MG TAB PO PRN (23:17)
[2019-02-02] MEDS: OXYCODONE HCL IR 5 MG TAB (IMMEDIATE RELEASE) PO PRN (06:06)
[2019-02-02] MEDS: CYANOCOBALAMIN 500 MCG TABLET (VITAMIN B-12) PO SCH (07:40)
[2019-02-02] MEDS: MIRABEGRON ER 25 MG TAB PO SCH (07:40)
[2019-02-02] MEDS: METOPROLOL SUCC 50MG EXT REL TAB PO SCH ×2 (07:41→20:23)
[2019-02-02] MEDS: DOCUSATE SODIUM/SENNA 50/8.6MG TAB PO SCH ×3 (07:41→20:23)
[2019-02-02] MEDS: APIXABAN 2.5 MG TAB PO SCH ×2 (07:41→20:23)
[2019-02-02] MEDS: DULOXETINE HCL 20 MG CAP PO SCH (07:41)
[2019-02-02 08:30] LABS: Hemoglobin 11.1 g/dL (12.0-16.0); Mean Corpuscular Hgb Conc 32.6 g/dL (32-36); Mean Corpuscular Volume 96.3 fL (80-100); Mean Platelet Volume 10.5 fL (7.4-10.4); Platelet Count 196 K/uL (130-400); RDW Coefficient of Variation 13.6 % (11.5-14.5); RDW Standard Deviation 47.6 fL (36.4-46.3); Red Blood Count 3.53 M/uL (4.2-5.4); White Blood Count 9.59 K/uL (4.8-10.8)
[2019-02-02 08:56] LABS: BUN Creatinine Ratio 20.5 (10-20); Calcium 8.9 mg/dl (8.5-10.1); Creatinine Clr Calc Pharmacy 61.6 ml/min; Est GFR (African American) 95.5; Est GFR (Non-African American) 82.4
--- NOTE | 2019-02-02 08:59 | Progress Note ---
DATE: 02/02/2019 SUBJECTIVE: An 83-year-old white female postop day 5 from a right cemented bipolar hip arthroplasty for fracture. She is doing pretty well. Not much pain today. She is sitting in her bedside chair and eating breakfast. She looks awake, alert and appropriate. OBJECTIVE: VITAL SIGNS: Temperature 36.8. Vital signs stable. PHYSICAL EXAMINATION: GENERAL: Reveals a pleasant elderly female. She is sitting up in her bedside chair eating breakfast. Looks comfortable. EXTREMITIES: Examination of the right hip reveals incision to be clean, dry and intact. Thigh is soft and supple. Hip is located. She is neurologically intact. LABORATORIES: Hemoglobin 11.1. Hematocrit 34.0. Electrolytes are pending. ASSESSMENT: An 83-year-old white female postoperative day 5 from a right cemented bipolar hip arthroplasty for fracture. She is doing well. She looks to be improving daily. She is neurologically stable. PLAN: 1. DVT prophylaxis including thigh-high TEDs, SCDs, and back on her Eliquis. 2. PT/OT. She can weightbear as tolerated. Right total hip protocol. 3. Pain control, doing well with current pain regimen. 4. Medical management as per the Medicine service. 5. Disposition: She is orthopedically okay for discharge any time. I think they are just waiting for bed availability and insurance authorization that likely will happen tomorrow.
--- NOTE | 2019-02-02 11:44 | Hospitalist Progress Note ---
Date of Service February 02, 2019 Assessment & Plan (1) Hip fracture: Acute displaced and angulated subcapital fracture of the right femur Patient s/p Right cemented bipolar hip arthroplasty. (2) Atrial fibrillation: Chronic AF and history of NSVT - cont Metoprolol 100BID and Dig 0.125 daily, Eliquis (3) Hypertension: cont Metoprolol, (4) Hyperlipidemia: Atorvastatin - Ezitimibe held (5) DVT prophylaxis: Eliquis Dispo: awaiting placement, likely Saturday, [facility] vs Subjective Ms. Young has no complaints today. Review of Systems Review of Systems: All systems reviewed & are unremarkable except as noted in HPI & below Physical Exam Physical Exam: General: no distress Eyes: normal inspection, PERLL Respiratory: chest non tender, clear to auscultation, normal breath sounds, no respiratory distress, no accessory muscle use Cardiac: regular rate and rhythm, no rub or gallop, no murmur, no edema, no jvd GI/: active bowel sounds, no abd pain or tenderness, soft, non distended Extremities: normal range of motion, normal strength, non tender Neuro/Psych: alert and oriented x 3, normal mood and affect Skin: normal color, dry Results & Data Vital Signs (Past 12 Hours) Vital Signs Temp Pulse Resp BP Pulse Ox Pulse Ox 02/02/19 07:20 91 02/02/19 06:17 36.8 C 79 16 172/75 H 99 02/02/19 05:02 93 (1) Hip fracture Encounter type: initial encounter Fracture type: closed Laterality: right Qualified Code(s): S72.001A - Fracture of unspecified part of neck of right femur, initial encounter for closed fracture
[2019-02-02] MEDS: ACETAMINOPHEN 500 MG TAB PO PRN (16:04)
[2019-02-02] MEDS: DIGOXIN 0.125 MG TAB PO SCH (16:05)
[2019-02-02] MEDS: EZETIMIBE 10 MG TABLET PO SCH (16:16)
[2019-02-02] MEDS: ATORVASTATIN 20 MG TAB PO SCH (20:24)
[2019-02-03] MEDS: CYANOCOBALAMIN 500 MCG TABLET (VITAMIN B-12) PO SCH (08:35)
[2019-02-03] MEDS: APIXABAN 2.5 MG TAB PO SCH ×2 (08:35→21:09)
[2019-02-03] MEDS: METOPROLOL SUCC 50MG EXT REL TAB PO SCH ×2 (08:35→21:09)
[2019-02-03] MEDS: DULOXETINE HCL 20 MG CAP PO SCH (08:36)
[2019-02-03] MEDS: MIRABEGRON ER 25 MG TAB PO SCH (08:36)
[2019-02-03] MEDS: DOCUSATE SODIUM/SENNA 50/8.6MG TAB PO SCH ×3 (08:36→21:10)
[2019-02-03] MEDS: ACETAMINOPHEN 500 MG TAB PO PRN ×2 (13:15→21:10)
--- NOTE | 2019-02-03 14:28 | Progress Note ---
DATE: 02/03/2019 SUBJECTIVE: An 83-year-old white female postop day 6 from a right cemented bipolar hip arthroplasty for fracture. She is doing pretty well. Some pain, but manageable. No new complaints. OBJECTIVE: VITAL SIGNS: Temperature 36.4. Vital signs stable. GENERAL: Physical examination shows a pleasant elderly female. She is lying in bed, looks comfortable. EXTREMITIES: Examination of the right hip reveals incision to be clean, dry and intact. No drainage. Very minimal thigh swelling. Hip is located. She is neurologically stable. ASSESSMENT: An 83-year-old white female postop day 6 from a right cemented bipolar hip arthroplasty for fracture. Orthopedically, she is doing well. PLAN: 1. DVT prophylaxis including thigh-high TEDs, SCDs, and she is back on her Eliquis. 2. PT/OT. Weight bear as tolerated. Right total hip protocol. 3. Pain control, doing well with current pain regimen. 4. Medical management as per the medicine service. 5. Disposition: She is orthopedically okay for discharge any time. I need to see her back 2 weeks out from surgery date. Any orthopedic questions can be directed to me at [phone].
[2019-02-03] MEDS: DIGOXIN 0.125 MG TAB PO SCH (15:37)
[2019-02-03] MEDS: EZETIMIBE 10 MG TABLET PO SCH (15:37)
--- NOTE | 2019-02-03 15:37 | Cardiology Progress Note ---
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 I think it was a mechanical fall. (2) Atrial fibrillation: She has a history of well-documented atrial fibrillation which has been asymptomatic. She was in sinus rhythm and probably still is, she is back on her anticoagulant which she needs to be in the long run. Subjective She is doing well today, she is having minimal pain and is in good spirits. Physical Exam Physical Exam: Constitutional: Alert, cooperative and in no distress. Pulmonary: Clear to auscultation bilaterally. Cardiac: Regular rhythm with no murmur, gallop or rub. Abdomen: Soft, nontender with normal bowel sounds. Extremities: No edema. Skin: No rash, ecchymoses or petechiae. Results & Data Vital Signs (Past 12 Hours) Vital Signs Temp Pulse Pulse Resp BP BP Pulse Ox 02/03/19 14:57 36.7 C 76 16 154/65 H 91 02/03/19 08:30 76 159/63 H 02/03/19 07:59 02/03/19 06:45 36.4 C L 73 17 156/74 H 96 Pulse Ox 02/03/19 14:57 02/03/19 08:30 02/03/19 07:59 93 02/03/19 06:45 (1) Fall Encounter type: initial encounter Qualified Code(s): W19.XXXA - Unspecified fall, initial encounter
--- NOTE | 2019-02-03 16:41 | Hospitalist Progress Note ---
Date of Service February 03, 2019 Assessment & Plan (1) Hip fracture: Acute displaced and angulated subcapital fracture of the right femur Patient s/p Right cemented bipolar hip arthroplasty. Weight bearing as tolerated per ortho (2) Atrial fibrillation: Chronic AF and history of NSVT and history of CVA - cont Metoprolol 100BID and Dig 0.125 daily, Eliquis (3) Hypertension: cont Metoprolol, (4) Hyperlipidemia: Atorvastatin - Ezitimibe held (5) DVT prophylaxis: Eliquis Dispo: awaiting placement, likely [facility] Subjective Ms. Young has no complaints. Comfortable, pain is controlled. Per outpatient notes, has had some aphasia at baseline due to past CVA. She answers my iram entation questions appropriately but keeps her other answers short. Review of Systems Review of Systems: All systems reviewed & are unremarkable except as noted in HPI & below Physical Exam Physical Exam: General: no distress Eyes: normal inspection, PERLL Respiratory: chest non tender, clear to auscultation, normal breath sounds, no respiratory distress, no accessory muscle use Cardiac: regular rate and rhythm, no rub or gallop, no murmur, no edema, no jvd GI/: active bowel sounds, no abd pain or tenderness, soft, non distended Extremities: normal range of motion, normal strength, non tender Neuro/Psych: alert and oriented x 3, normal mood and affect, CN II - XII intact, no drift in arms. Skin: normal color, dry Results & Data Vital Signs (Past 12 Hours) Vital Signs Temp Pulse Pulse Pulse Resp BP BP 02/03/19 15:37 73 02/03/19 14:57 36.7 C 76 16 154/65 H 02/03/19 08:30 76 159/63 H 02/03/19 07:59 02/03/19 06:45 36.4 C L 73 17 156/74 H Pulse Ox Pulse Ox 02/03/19 15:37 02/03/19 14:57 91 02/03/19 08:30 02/03/19 07:59 93 02/03/19 06:45 96 (1) Hip fracture Encounter type: initial encounter Fracture type: closed Laterality: right Qualified Code(s): S72.001A - Fracture of unspecified part of neck of right femur, initial encounter for closed fracture
[2019-02-03] MEDS: ATORVASTATIN 20 MG TAB PO SCH (21:09)
[2019-02-04 07:14] LABS: Hematocrit (blood only) 31.5 % (37-47); Hemoglobin 10.3 g/dL (12.0-16.0); Mean Corpuscular Hgb Conc 32.7 g/dL (32-36); Mean Corpuscular Volume 96.6 fL (80-100); Mean Platelet Volume 9.7 fL (7.4-10.4); Platelet Count 228 K/uL (130-400); RDW Coefficient of Variation 13.9 % (11.5-14.5); RDW Standard Deviation 48.7 fL (36.4-46.3); Red Blood Count 3.26 M/uL (4.2-5.4); White Blood Count 9.28 K/uL (4.8-10.8)
[2019-02-04 07:45] LABS: BUN Creatinine Ratio 24.8 (10-20); Calcium 8.3 mg/dl (8.5-10.1); Creatinine Clr Calc Pharmacy 87.9 ml/min; Est GFR (African American) 107.4; Est GFR (Non-African American) 92.6
[2019-02-04] MEDS: CYANOCOBALAMIN 500 MCG TABLET (VITAMIN B-12) PO SCH (08:53)
[2019-02-04] MEDS: APIXABAN 2.5 MG TAB PO SCH (08:53)
[2019-02-04] MEDS: METOPROLOL SUCC 50MG EXT REL TAB PO SCH (08:53)
[2019-02-04] MEDS: DULOXETINE HCL 20 MG CAP PO SCH (08:54)
[2019-02-04] MEDS: MIRABEGRON ER 25 MG TAB PO SCH (08:54)
[2019-02-04] MEDS: DOCUSATE SODIUM/SENNA 50/8.6MG TAB PO SCH ×2 (08:55→14:07)
--- NOTE | 2019-02-04 10:53 | Progress Note ---
DATE: 02/04/2019 SUBJECTIVE: An 83-year-old white female, now postop day 7 from right cemented bipolar hip arthroplasty for fracture. She is doing pretty well. Does not report any real significant pain. No new complaints. No chest pain or shortness of breath. OBJECTIVE: VITAL SIGNS: Temperature 36.9. Vital signs stable. GENERAL: Reveals a pleasant elderly female. I did wake her when I went in the room this morning. She is awake. She is alert, oriented and appropriate. EXTREMITIES: Examination of right hip reveals incision to be clean and dry. No drainage. Very mild swelling. Hip is located. Leg lengths were equal. She is neurologically intact. LABORATORY DATA: Hemoglobin is 10.3, hematocrit 31.5. Electrolytes are stable. ASSESSMENT: An 83-year-old white female postop day 7 from a right cemented bipolar hip arthroplasty for fracture. Orthopedically, she is doing well. Pain is controlled. Hip is located. She is neurologically intact. PLAN: 1. DVT prophylaxis including thigh-high TEDs, SCDs and she should be back on her Eliquis at a regular dose. 2. PT/OT. She will weightbear as tolerated. Right total hip protocol. 3. Pain control, doing well with current pain regimen. She had just taken Tylenol. 4. Disposition: She is orthopedically okay for discharge. I believe she is planning on being discharged to [facility] later today. I need to see her back 2 weeks out from surgery date which is about a week from now. Any orthopedic questions can be directed at [phone].
--- NOTE | 2019-02-04 11:33 | Discharge Summary ---
Date of Service February 04, 2019 Admission HPI Per Admitting Provider 83 y/o F Hx chronic diastolic CHF, chronic AF, HTN, HLD, NSVT, osteoporosis. Presents following a mechanical fall onto her L side where she sustained a subcapital femoral fracture. She denies preceding symptoms such as lightheadedness, palpitations or CP. The pt's SBP was over 200 on arrival to the ER which was likely related to pain. 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 Maintains independence. Family: Both parents due to CAD/MIs Principal Diagnosis Hip fracture Discharge Exam Constitutional WD/WN, vitals as above Respiratory normal respiratory effort, lungs clear to auscultation Cardiovascular Rate/Rhythm: regular rate and regular rhythm right leg edema Gastrointestinal (Abdomen) normal bowel sounds, soft, nontender, no hepatosplenomegaly Musculoskeletal no cyanosis or clubbing, extremities motor strength 5/5 Skin no rashes, warm and dry Neurologic moves all extremities and awake Psychiatric A+Ox3, euthymic affect Discharge Data Allergies Allergy/AdvReac Type Severity Reaction Status Date / Time amoxicillin Allergy Intermediate RASH Verified 01/27/19 18:07 Penicillins Allergy Intermediate RASH Verified 01/27/19 18:07 pravastatin Allergy Intermediate MYALGIA Verified 01/27/19 18:07 simvastatin Allergy Intermediate MYALGIA Verified 01/27/19 18:07 Consultations 01/27/19 19:08 ED Decision to Admit Stat 01/27/19 20:19 Consult Cardiology Routine 01/27/19 21:35 Consult Case Management - Discharge Planning Routine Consult Orthopedic Surgery Routine 01/28/19 17:58 Consult Case Management - Discharge Planning Routine Procedures Performed Operation Date: 01/28/19 09:10 Actual Procedures p Right Bipolar Hip Prosthesis Cemented - El Emanuel MD Ordered Studies 01/27/19 17:27 CT head/brain wo con Stat 02/04/19 10:25 US venous doppler LE RT Routine Hospital Course (1) Hip fracture: Acute displaced and angulated subcapital fracture of the right femur Patient s/p Right cemented bipolar hip arthroplasty. Weight bearing as tolerated per ortho (2) Atrial fibrillation: Chronic AF and history of NSVT and history of CVA - cont Metoprolol 100BID and Dig 0.125 daily, Eliquis (3) Hypertension: cont Metoprolol, (4) Hyperlipidemia: Atorvastatin - Ezitimibe held (5) Acute blood loss anemia: Hgb dropped to 11.8 after surgery, has drifted to 10.3 today. No apparent bleeding, incision site looks good, soft to palpation. No dark or tarry stools. Would recommend rechecking on Saturday. (6) Right leg swelling: with tenderness in the calf - doppler right lower extremity showed popliteal cyst, no DVT (7) DVT prophylaxis: Eliquis Dispo: [facility] for rehab Total Time Total Time Spent Total Time Spent (In Minutes): greater than 30 minutes Discharge Plan Discharge Items Patient Disposition: Transfer Detention Fac Reason For Visit: HIP FRACTURE Discharge Diagnosis: Hip fracture and repair Discharge Goals: Decrease discomfort, Improve disease control, Improve function and Therapeutic intervention Activity: Per 'Additional Instructions' section Activity Comment: Follow hip precautions at all times Non-emergency contact: Primary Care Provider Call non-emergency contact if: you have any medication questions Follow-up/Referrals: Carlos Moreno MD [Primary Care Provider] - El Emanuel MD [Surgeon] - (Orthopedic follow-up 2 weeks from surgery date) Diet: Heart Healthy Addtl Provider Instructions: Ultrasound of the right lower extremity was performed, it did not show DVT but did show a popliteal cyst (Rodriguez's cyst). There is nothing that needs to be done for this at this time but if it continues to bother you, you should follow up with your primary care provider. Please have Irene take blood work to check your hemoglobin and hematocrit on Saturday. ACTIVITY RECOMMENDATIONS: Physical Therapy: * Aggressive physical therapy is not usually needed. You will learn to take care of yourself safely and walk. * Follow the "Hip Precautions Instructions." * In some cases, the social work job titles at the hospital will arrange to have a the rapist come to your house for the first couple of weeks to help you learn these skills. * You need to practice on your own or with the help of a family member as needed. * When you learn these skills, most of the therapy can be done on your own. Home Exercise: * You were shown a series of exercises in the hospital. Do these exercises three to four times each day including the exercises you were shown in physical therapy. Walking: * Get up and walk several times each day. For the first four weeks, try not to stand or walk for more than one hour at a time. If you do stand or walk for more than one hour, you will not hurt anything, but your leg will likely swell. * As you feel comfortable, you may change from the walker or crutches to a cane and then to independent walking. * The most common side effects of pain medicine and iron are nausea and constipation. If nausea or constipation is too much of a problem or if you have any questions about your new medicines or doses, call [facility] at . We will try to help you manage these issues. "VERY IMPORTANT TO READ AND REVIEW" Pain: * The immediate post-operative period after hip replacement surgery is often quite painful. * You are given a prescription for pain medicine. You should take it, as directed, when you need it, especially before physical therapy and before going to bed. Pain that interferes with sleep is very common and can last several months. * You will likely need pain medicine for the first two to four weeks. It will not stop all of the pain. The pain will lessen and as you feel better, you may change to milder pain medicine such as Tylenol. * The most common side effects of pain medicine are nausea and constipation, so don't take more than you need. SPECIAL CARE INSTRUCTIONS: TEDs/Elastic Stockings: * The white elastic stockings help limit swelling and prevent blood clots from forming in your legs. The more you wear them, the more they work. * Wear them for six weeks. Prevention of Infection: * Take antibiotics one hour before any dental cleaning, dental work, urological procedure, gastrointestinal procedure or any invasive surgery in order to prevent your new joint from getting infected. * You may get the antibiotics from the doctor performing the procedure or you may call our office at before and we will call in a prescription to the pharmacy of your choice. Things to Watch For: * Drainage from the incision site that occurs more than one week after your surgery. * Severely increased leg pain or swelling. * Increased redness at the incision site. * Fever above 102 degrees Fahrenheit. * Unusual chest pain or shortness of breath. * Unusual pain or burning with urination. Call [facility] at with any of the above problems or if you have any questions about your medicines or recovery. FOLLOW UP VISIT: Make an appointment to see your doctor for approximately two weeks after surgery for a progress check and staple removal by calling the office at . Prescriptions: New oxycodone 5 mg Tablet 5 - 10 mg PO Q4H PRN (Reason: pain) Qty: 20 RF: 0 Eliquis 2.5 mg Tablet 2.5 mg PO BID Qty: 30 RF: 0 Continued atorvastatin 20 mg Tablet 20 mg PO HS RF: 0 cyanocobalamin (vitamin B-12) [Vitamin B-12] 1,000 mcg Tablet 1,000 mcg PO DAILY RF: 0 aspirin [Aspir-81] 81 mg Tablet,Delayed Release (Dr/Ec) 81 mg PO DAILY RF: 0 acetaminophen [Tylenol Extra Strength] 500 mg Tablet 500 mg PO Q4 PRN (Reason: Fever Or Pain) RF: 0 diclofenac sodium 1 % Gel 4 g TOPICAL QID RF: 0 sennosides-docusate sodium [Senna-S] 8.6-50 mg Tablet 1 tab PO BID RF: 0 metoprolol succinate 100 mg Tablet Extended Release 24 Hr 100 mg PO BID RF: 0 digoxin [Digox] 125 mcg Tablet 125 mcg PO DAILY RF: 0 cholecalciferol (vitamin D3) [Vitamin D3] 1,000 unit Capsule 2,000 unit PO DAILY RF: 0 ezetimibe 10 mg Tablet 10 mg PO QDD RF: 0 duloxetine 20 mg Capsule,Delayed Release(Dr/Ec) 20 mg PO DAILY RF: 0 Myrbetriq 25 mg Tablet Extended Release 24 Hr 25 mg PO DAILY RF: 0 Discontinued Eliquis 5 mg Tablet 5 mg PO BID RF: 0 Stand-Alone Forms: [facility] [employer] [facility]/Other Patient Handouts: Cyst Popliteal Discharge Orders: Discharge Order (Routine); Ordered 02/04/19 Ordered By: Sol Dacosta Skilled Items Patient informed of condition?: Yes DNR: No Discharge Level of Care: Acute rehab Communicable Disease: No Discharge Prognosis: Stable Admission Data Admit Date/Time: 01/27/19 19:45 Attending Provider: Nazario Tierney Admit Provider: Bari Parker Primary Care Provider: Carlos Moreno Other Providers: Bari Parker ; Tariq Tolliver ; Josue Banegas ; Dustin Avendano ; Sol Dacosta Service: Surgical Services
--- NOTE | 2019-02-04 13:54 | Ultrasound Report ---
ULTRASOUND RIGHT LOWER EXTREMITY VENOUS CLINICAL HISTORY: Right leg pain and swelling. COMPARISON STUDY: No priors. TECHNIQUE: Real-time, grayscale, and color Doppler sonography of the deep veins of the right lower ex tremity was performed from the inguinal crease to the calf. Compression and augmentation were utilize d. FINDINGS: There is no sonographic evidence of deep venous thrombosis identified in the right lower ex tremity. The common femoral, superficial femoral, and popliteal veins are patent and normally maria t sible. The greater saphenous vein and the profunda femoris vein at the junction with the common femor al vein are clear. The visualized calf veins are patent. A popliteal cyst measures 5.3 x 1.1 x 2.2 cm . IMPRESSION: 1. There is no sonographic evidence of deep venous thrombosis identified in the right lower extremity . 2. Popliteal cyst. Electronically signed by: Jd Garza M.D. 02/04/2019 1:52 PM
== END 2019-02-04 15:10 | DRG 470 ==
LOC: ED 17:19 → 3E 19:45 → SUATTDRO 19:45 → 3E 21:07 → 3W 02-02 14:30

== ENCOUNTER 2019-11-05 12:10 | Observation (INO) ==
[2019-11-05] MEDS ORDERED: SODIUM CHLORIDE 0.9% 500 ML IV ONE (12:31)
--- NOTE | 2019-11-05 13:08 | XRay Report ---
XR chest 1V portable HISTORY: Atypical Chest Pain COMPARISON: Chest 06/14/2019. FINDINGS: No pneumothorax. No pleural effusions. The heart is normal in size. No evidence for pulmona ry edema. Mild interstitial thickening at the lung bases. This is likely chronic. No new focal lung c onsolidations to suggest pneumonia. No evidence for pulmonary edema. IMPRESSION: Mild bibasilar chronic interstitial thickening. Otherwise, no acute process within the chest. ACT 112: Negative or not required by law. Electronically signed by: Alfonso Hill M.D. 11/05/2019 1:07 PM
[2019-11-05 13:26] LABS: Basophils # (auto) 0.02 K/uL (0-0.2); Basophils % (auto) 0.3 %; Eosinophils # (auto) 0.09 K/uL (0-0.5); Eosinophils % (auto) 1.2 %; Hematocrit (blood only) 46.1 % (37-47); Hemoglobin 15.4 g/dL (12.0-16.0); Immature Granulocytes # (auto) 0.01 K/uL (0.00-0.02); Immature Granulocytes % (auto) 0.1 %; Lymphocytes # (auto) 2.13 K/uL (1.2-3.4); Lymphocytes % (auto) 29.3 %; Mean Corpuscular Hemoglobin 33.3 pg (25-34); Mean Corpuscular Hgb Conc 33.4 g/dL (32-36); Mean Corpuscular Volume 99.6 fL (80-100); Mean Platelet Volume 10.5 fL (7.4-10.4); Monocytes # (auto) 0.84 K/uL (0.11-0.59); Monocytes % (auto) 11.6 %; Neutrophils # (auto) 4.18 K/uL (1.4-6.5); Neutrophils % (auto) 57.5 %; Platelet Count 155 K/uL (130-400); RDW Coefficient of Variation 12.9 % (11.5-14.5); RDW Standard Deviation 46.9 fL (36.4-46.3); Red Blood Count 4.63 M/uL (4.2-5.4); White Blood Count 7.27 K/uL (4.8-10.8)
[2019-11-05 13:52] LABS: Alanine Aminotransferase 28 U/L (12-78); Albumin Level 3.9 gm/dl (3.4-5.0); Aspartate Aminotransferase 16 U/L (15-37); BUN Creatinine Ratio 24.1 (10-20); Blood Urea Nitrogen 15 mg/dl (7-18); Carbon Dioxide 33 mmol/L (21-32); Chloride 104 mmol/L (98-107); Creatinine Clr Calc Pharmacy 63.4 ml/min; Est GFR (African American) 96.3; Est GFR (Non-African American) 83.1; Glucose 171 mg/dl (70-99); Lipase 137 U/L (73-393); Magnesium 1.9 mg/dl (1.8-2.4); Potassium 3.8 mmol/L (3.5-5.1); Sodium 140 mmol/L (136-145)
[2019-11-05 14:04] LABS: Albumin Globulin Ratio 1.1 (0.9-2); Alkaline Phosphatase 74 U/L (45-117); Bilirubin,Total 0.7 mg/dl (0.2-1); Globulin 3.6 gm/dl (2.5-4.0); Phosphorus 3.2 mg/dl (2.5-4.9); Total Protein 7.5 gm/dl (6.4-8.2); Troponin I < 0.015 ng/ml (0-0.045)
[2019-11-05] MEDS ORDERED: OPTIRAY 320 125ml IV PRN (14:57)
--- NOTE | 2019-11-05 15:02 | CT Scan Report ---
HEAD CT NONCONTRAST CT DOSE: 638.56 mGycm HISTORY: dizziness, vertigo, h/o cva TECHNIQUE: Multiaxial CT images of the head were performed without the use of intravenous contrast. A utomated exposure control was utilized for this study. A dose lowering technique was utilized adheri ng to the principles of ALARA. Comparison: Head CT 06/14/2019. Findings: The paranasal sinuses and mastoid air cells are clear. The calvarium and skull base are int act. There is no mass, hematoma, midline shift, acute infarct. White matter hypodensity is nonspecifi c but suggestive of microvascular ischemic change. The ventricles and sulci demonstrate mild age-rela wanda involutional changes. Old lacunar infarcts within the bilateral basal ganglia, unchanged. Impression: No significant change compared to the prior study. No acute intracranial abnormality. ACT 112: Negative or not required by law. Electronically signed by: Alfonso Hill M.D. 11/05/2019 3:01 PM
--- NOTE | 2019-11-05 15:10 | CT Scan Report ---
CT angio head w con HISTORY: dizziness, vertigo, h/o cva TECHNIQUE: Multiaxial CT angiography of the head was performed IV contrast: 100 cc nonionic Maximu m intensity projection images were also obtained. A dose lowering technique was utilized adhering to the principles of ALARA. COMPARISON: None. FINDINGS: There is no mass, hematoma, midline shift, or acute infarct. Visualized intracranial corporate communications intern al carotid arteries, distal vertebral arteries, and basilar artery are widely patent. There is no sig nificant stenosis, occlusion, or aneurysm seen within the bilateral ACAs, MCAs, or script worker. IMPRESSION: No significant stenosis, occlusion, or aneurysm within the [place]. ACT 112: Negative or not required by law. The above report was generated using voice recognition software. It may contain grammatical, syntax or spelling errors. Electronically signed by: Willie oMntes M.D. 11/05/2019 3:08 PM
--- NOTE | 2019-11-05 15:19 | CT Scan Report ---
NECK CTA HISTORY: dizziness, vertigo, h/o cva TECHNIQUE: Multiaxial CT images of the neck were performed following the intravenous administration o f contrast to evaluate the major cervical vessels. Maximum intensity projection images were also obta ined. All measurements were calculated based on NASCET criteria. A dose lowering technique was utili zed adhering to the principles of ALARA. COMPARISON STUDY: Carotid Doppler 10/18/2017. FINDINGS: The aortic arch and proximal great vessels are widely patent. Moderate calcified plaque wi thin the bilateral carotid arteries. The bilateral vertebral arteries are patent. No evidence for ryann tebral artery dissection. There is approximately 50% narrowing within the proximal left internal kessler tid artery. There is approximately 60% narrowing at the right carotid bifurcation and origin of the r ight internal carotid artery due to the calcified plaque. The bilateral mid to distal carotid arterie s are widely patent. IMPRESSION: 1. Approximately 60% narrowing at the right carotid bifurcation and origin of the right internal kessler tid artery with approximately 50% narrowing at the proximal left internal carotid artery due to the c alcified plaque. 2. The bilateral vertebral arteries are widely patent. ACT 112: Negative or not required by law. Electronically signed by: Alfonso Hill M.D. 11/05/2019 3:18 PM
--- NOTE | 2019-11-05 16:22 | History & Physical Report ---
Date of Service November 05, 2019 Assessment & Plan (1) Gait abnormality: - After CVA in January 2017 her gait was affected despite several PT/OT therapy referrals - she subsequently fell and sustained a left subcapital femoral fracture no s/p surgical fixation in January 2019. - PT/OT consults (2) Dizziness: - Admit to med surg - Imaging reviewed including U/S neck showing R carotid stenosis of 60% at bifrucation and origin of the ROSY with 50 % narrowing at the proximal left ICA due to calcified plaque. - PT/OT consulted - This has been an ongoing issues for several years since hx of CVA where she has residual right sided weakness. At baseline she ambulates in her home with a walker and outside/other places with a cane. - Consider Meclizine for dizziness - Possible that the pt may need an inpatient stay after hospital, as she lives at home alone. (3) History of CVA with residual deficit: - January 2017 suffered left ganglion ischemic stroke. Follow with [facility] as outpatient, Dr. Ag previously however did not feel she needed further follow up as of December 2018. (4) Bilateral carotid artery stenosis: - Continue eliquis, no hx with bleeding complications. - Neck CTA reviewed as above. - Most recent lipid panel was good with LDL less than 100. BP well controlled. - Pt would not want aggressive intervention and is not felt to be a good candidate for surgery. Follow as outpt with PCP. (5) CHF (congestive heart failure): - Chronic diastolic, no acute exacerbation - Continue cardioprotective medications as above including metoprolol succinate 100 mg BID, digoxin 125 mcg daily, asa 81 mg, atorvastatin 20 mg HS (6) Atrial fibrillation: - Continue on eliquis 2.5 mg BID with age and weight (7) Hypertension: - BP well controlled with antihypertensives as above (8) Hyperlipidemia: - Cont statin therapy (9) Diabetes mellitus type II, controlled: - Last a1c done earlier this month and was 6.8, no need to recheck - ISS with accuchecks achs, no home medications and does not check her glucose at home - HH/DM diet (10) Peripheral neuropathy: - Continue Lyrica 75 mg HS (11) Osteoporosis: - Cont Vit D supplementation (12) Polycythemia: - H&H with 15.4 and 44 respectively, follow H&H as outpatient. Pt does not follow with hematology as an outpatient at this time. (13) Candidiasis: - Under breasts bilaterally, continue topical nystatin powder, encourage pt to keep the area dry. Discussed using a dry towel/cloth to place between skin folds after bathing to wick [place] away and encouraged to use a hairdryer on cool or low warmth setting to completely dry the skin in folds. (14) Psoriasis: - Multiple lesions overlying upper extremities and affecting extensor surfaces. Pt denies irritation/itch/pain. Follows with dermatology as outpt. (15) DVT prophylaxis: - teds, continue eliquis CODE: Full Dispo: From home, lives alone, likely to remain in the hospital x 2 days for PT/OT and possible inpatient rehab History of Present Illness Primary Care Provider: Preston Moreno MD This is an 84 yo F with PMHx of chronic CHF, atrial fibrillation, HTN, HLD, bilateral carotid artery stenosis, DM type II, history of ischemic CVA with residual unsteady gait, lumbar radiculopathy, DJD lumbar spine, peripheral neuropathy, polycythemia, and osteoporosis who presents with acute worsening of dizziness and gait disturbance over the past 3 days. Patient lives at home by herself, uses a walker for ambulation at all times, felt very unsteady and was fearful for her safety, therefore called her sisters to bring her to the ER. Patient reports that standing makes her significantly dizzy, however when sitting still her symptoms are much improved. She denies any changes in her visual status currently, but admits having worse right-sided blurred vision earlier today. She denies any facial numbness, slurred speech, focal weakness in upper or lower extremities. At baseline, she does have some weakness in the lower extremities secondary to gait/residual deficits s/p CVA in January 2017. Allergies Allergy/AdvReac Type Severity Reaction Status Date / Time amoxicillin Allergy Intermediate RASH Verified 11/05/19 14:21 Penicillins Allergy Intermediate RASH Verified 11/05/19 14:21 pravastatin Allergy Intermediate MYALGIA Verified 11/05/19 14:21 simvastatin Allergy Intermediate MYALGIA Verified 11/05/19 14:21 Home Medications Home Medications Medication Instructions Recorded Confirmed Type acetaminophen [Tylenol Extra 500 mg PO Q4 PRN 01/27/19 11/05/19 History Strength] aspirin [Aspir-81] 81 mg PO DAILY 01/27/19 11/05/19 History cyanocobalamin (vitamin B-12) 1,000 mcg PO DAILY 01/27/19 11/05/19 History [Vitamin B-12] sennosides-docusate sodium 1 tab PO BID 01/27/19 11/05/19 History [Senna-S] cholecalciferol (vitamin D3) 25 2,000 units PO DAILY cap 03/02/19 11/05/19 History mcg (1,000 unit) capsule acetaminophen 300 mg-codeine 30 mg 1 tab PO Q6H PRN #30 tab 08/12/19 11/05/19 Rx tablet apixaban 2.5 mg tablet 2.5 mg PO BID #180 tab 10/14/19 11/05/19 Rx atorvastatin 20 mg tablet 20 mg PO HS #90 tab 10/14/19 11/05/19 Rx duloxetine 20 mg capsule,delayed 20 mg PO DAILY #90 cap 10/14/19 11/05/19 Rx release ezetimibe 10 mg tablet 10 mg PO DAILY #90 tab 10/14/19 11/05/19 Rx mirabegron 25 mg tablet,extended 25 mg PO DAILY #90 tab 10/14/19 11/05/19 Rx release 24 hr nystatin 100,000 unit/gram topical 1 appln TOP TID #60 gm 10/14/19 11/05/19 Rx powder pregabalin 75 mg capsule 75 mg PO HS #90 cap 10/14/19 11/05/19 Rx digoxin 125 mcg (0.125 mg) tablet 125 mcg PO DAILY #90 tab 10/15/19 11/05/19 Rx metoprolol succinate 100 mg PO BID 11/05/19 11/05/19 History Past Med/Surg History Medical History Acute ischemic stroke (Acute) Allergic rhinitis due to pollen (Acute) Atrial fibrillation Bilateral carotid artery stenosis (Acute) CHF (congestive heart failure) (Resolved 03/19/14) Cystocele, midline (Acute) Depression (Acute) Diabetes mellitus type II, controlled (Acute) Disc degeneration, lumbar (Acute) Dysphasia following cerebrovascular accident (CVA) (Acute) Expressive aphasia (Acute) Hemorrhoids (Acute) History of CVA with residual deficit (Resolved) Hypercholesterolemia (Acute) Lumbar radiculopathy (Acute) Lumbar stenosis with neurogenic claudication (Resolved 03/16/14) Microscopic hematuria (Acute) Neurologic gait dysfunction (Acute) On continuous oral anticoagulation (Acute) Osteoporosis (Chronic) Overactive bladder (Acute) Peripheral neuropathy (Acute) Polycythemia (Acute) Primary localized osteoarthrosis of the hip (Acute) Stress incontinence in female (Acute) Vitamin D deficiency (Acute) Surgical History S/P appendectomy S/P cataract surgery S/P lumbar laminectomy S/P total hip arthroplasty Family History Grandfather Coronary heart disease Mother Coronary heart disease Sister Diabetes Father Coronary heart disease Other Family history non-contributory Denies family history of Ovarian cancer Prostate cancer Myocardial infarction Breast cancer Colorectal cancer Social History Preferred Language: Cym[place] Communication Ability: Impaired Hearing Ability: Use of Hearing Aid Bulk Intake Worker Required: No Beliefs That Will Affect Care: None marital status: Current Living Situation: Alone Current Living Situation Comment: House Other Information That Helps Us Care for You: No Feels Safe at Home: Yes Safety Concerns: Feels Safe At This Time Smoking Status: Never smoker Hx Alcohol Use: No Hx Substance Use: No Seatbelt Use: always Sunscreen Use: Yes Review of Systems Review of Systems: Constitutional: No fever, sweats or chills, + dizziness Eyes: No diplopia, + As per HPI - earlier today had right eye worsening/ blurred vision now resolved ENT: normal hearing, no trouble swallowing Respiratory: No cough, sputum, dyspnea at rest or on exertion Cardiovascular: No chest pain, tightness or palpitations Abdomen: No pain, nausea, vomiting, diarrhea or constipation Musculoskeletal: No joint pain, calf pain, swelling Neurologic: + generalized LE weakness at baseline, no numbness/tingling, + pe ripheral neuropathy in BLE, uses a walker for ambulation Psychiatric: No anxiety or depression Skin: No rash or itch Physical Exam Physical Exam: General: awake, alert, no apparent distress Head: Normocephalic, atraumatic ENT: PERRL, EOMI, no pharyngeal exudate, mucous membranes moist, + glasses, anicteric sclera Chest: Clear to auscultation, on room air, no adventitious breath sounds Cardiac: Regular rate and rhythm, no murmur, no JVD, normal peripheral pulses, good capillary refill Abdominal: NABS x 4 quadrants, soft, nontender to palpation, no rebound, guarding or tenderness Extremities: Normal inspection, no peripheral edema or erythema, calfs nontender to palpation Psych: Normal mood and affect Skin: erythematous excoriation over extremities, non puritic, , chronic, +bright erythematous rash underneath breasts bilaterally Neuro: AAO x 3, + has minor difficulty word finding but states this is s/p CVA and not acute, strength intact bilaterally and related 4/5, no motor deficits, speech is clear, no peripheral sensory deficits Results & Data Vital Signs (Past 12 Hours) Vital Signs Temp Pulse Resp BP Pulse Ox 11/05/19 12:21 36.3 C L 69 16 163/130 H 96 Diagnostic Findings NECK CTA HISTORY: dizziness, vertigo, h/o cva TECHNIQUE: Multiaxial CT images of the neck were performed following the intravenous administration of contrast to evaluate the major cervical vessels. Maximum intensity projection images were also obtained. All measurements were calculated based on NASCET criteria. A dose lowering technique was utilized adhering to the principles of ALARA. COMPARISON STUDY: Carotid Doppler 10/18/2017. FINDINGS: The aortic arch and proximal great vessels are widely patent. Moderate calcified plaque within the bilateral carotid arteries. The bilateral vertebral arteries are patent. No evidence for vertebral artery dissection. There is approximately 50% narrowing within the proximal left internal carotid artery. There is approximately 60% narrowing at the right carotid bifurcation and origin of the right internal carotid artery due to the calcified plaque. The bilateral mid to distal carotid arteries are widely patent. IMPRESSION: 1. Approximately 60% narrowing at the right carotid bifurcation and origin of the right internal carotid artery with approximately 50% narrowing at the proximal left internal carotid artery due to the calcified plaque. 2. The bilateral vertebral arteries are widely patent. CT angio head w con HISTORY: dizziness, vertigo, h/o cva TECHNIQUE: Multiaxial CT angiography of the head was performed IV contrast: 100 cc nonionic Maximum intensity projection images were also obtained. A dose lowering technique was utilized adhering to the principles of ALARA. COMPARISON: None. FINDINGS: There is no mass, hematoma, midline shift, or acute infarct. Visualized intracranial internal carotid arteries, distal vertebral arteries, and basilar artery are widely patent. There is no significant stenosis, occlusion, or aneurysm seen within the bilateral ACAs, MCAs, or hand turner. IMPRESSION: No significant stenosis, occlusion, or aneurysm within the [place]. ACT 112: Negative or not required by law. The above report was generated using voice recognition software. It may contain grammatical, syntax or spelling errors. Electronically signed by: Willie Montes M.D. 11/05/2019 3:[address] CT DOSE: 638.56 mGycm HISTORY: dizziness, vertigo, h/o cva TECHNIQUE: Multiaxial CT images of the head were performed without the use of intravenous contrast. Automated exposure control was utilized for this study. A dose lowering technique was utilized adhering to the principles of ALARA. Comparison: Head CT 06/14/2019. Findings: The paranasal sinuses and mastoid air cells are clear. The calvarium and skull base are intact. There is no mass, hematoma, midline shift, acute infarct. White matter hypodensity is nonspecific but suggestive of microvascular ischemic change. The ventricles and sulci demonstrate mild age-related involutional changes. Old lacunar infarcts within the bilateral basal ganglia, unchanged. Impression: No significant change compared to the prior study. No acute intracranial abnormality. ACT 112: Negative or not required by law. Electronically signed by: Alfonso Hill M.D. 11/05/2019 3:01 PM XR chest 1V portable HISTORY: Atypical Chest Pain COMPARISON: Chest 06/14/2019. FINDINGS: No pneumothorax. No pleural effusions. The heart is normal in size. No evidence for pulmonary edema. Mild interstitial thickening at the lung bases. This is likely chronic. No new focal lung consolidations to suggest pneumonia. No evidence for pulmonary edema. IMPRESSION: Mild bibasilar chronic interstitial thickening. Otherwise, no acute process within the chest. ACT 112: Negative or not required by law. Electronically signed by: Alfonso Hill M.D. 11/05/2019 1:07 PM ECG Additional Comments: 05-NOV-2019 12:16:09 [facility]-EDSTAT ROUTINE RETRIEVAL Sinus rhythm with 1st degree A-V block Cannot rule out Inferior infarct , age undetermined Abnormal ECG When compared with ECG of 14-JUN-2019 07:36, VT interval has increased 25mm/s 10mm/mV 150Hz 9.0.9 12SL 241 FRED: 11 Referred by: REFERRED SELF Unconfirmed Vent. rate 65 BPM VT interval 246 ms QRS duration 86 ms QT/QTc 390/405 ms P-R-T axes 86 -15 44 Code Status & VTE Plan Code Status Full - discussed with the pt at bedside Supervising Physician Co-Signing Physician Notes I have seen and examined pt with Niru Post PA-C and agree with her assessment and plan. PG Care Time/CCT Total # of Minutes Spent Total Time Spent with Patient: Total time spent is greater than 50% in coordination of care (as documented) at patient's floor/unit and/or counseling patient: Coding Level of Care Code 17443 Initial Inpt Care Lvl 3 Diagnoses Gait abnormality R26.9 Dizziness R42 History of CVA with residual deficit I69.30 Bilateral carotid artery stenosis I65.23 CHF (congestive heart failure) I50.9 Atrial fibrillation I48.91 Hypertension I10 Hyperlipidemia E78.5 Diabetes mellitus type II, controlled E11.9 Peripheral neuropathy G62.9 Osteoporosis M81.0 Polycythemia D75.1 Candidiasis B37.9 Psoriasis L40.9 DVT prophylaxis Z29.9
[2019-11-05] MEDS ORDERED: ACETAMINOPHEN W/CODEINE #3 1 TAB PO PRN (17:53)
[2019-11-05] MEDS ORDERED: GLUCOSE 40% GEL 15 GM TUBE PO PRN (17:53)
[2019-11-05] MEDS ORDERED: GLUCOSE 10 TABS/TUBE PO PRN (17:53)
[2019-11-05] MEDS ORDERED: ACETAMINOPHEN 500 MG TAB PO PRN (17:53)
[2019-11-05] MEDS ORDERED: DEXTROSE 50% 50 ML SYRINGE IV PRN (17:53)
[2019-11-05] MEDS ORDERED: ONDANSETRON INJ 2 MG/ML 2 ML VIAL IV PRN (17:53)
[2019-11-05] MEDS ORDERED: GLUCAGON FOR INJ 1 MG VIAL SQ PRN (17:53)
[2019-11-05] MEDS ORDERED: CARBOHYDRATES FOR HYPOGLYCEMIA PO PRN (17:53)
[2019-11-05] MEDS: METOPROLOL SUCC 50MG EXT REL TAB PO SCH (18:41)
--- NOTE | 2019-11-05 19:14 | Electrocardiogram Report ---
Test Reason : Blood Pressure : / mmHG Vent. Rate : 065 BPM Atrial Rate : 065 BPM P-R Int : 246 ms QRS Dur : 086 ms QT Int : 390 ms P-R-T Axes : 086 -15 044 degrees QTc Int : 405 ms Sinus rhythm with 1st degree A-V block Abnormal ECG When compared with ECG of 14-JUN-2019 07:36, IA interval has increased Confirmed by Preston Baker ([id number]) on 11/05/2019 7:14:04 PM Referred By: REFERRED SELF Confirmed By:Dandy Baker
--- NOTE | 2019-11-05 19:52 | Emergency Department Note ---
Entered by Pauly Chen acting as a scribe for Sage Varghese MD History of Present Illness General Chief complaint: Vertigo Stated complaint: Intermittent dizziness couple days Time Seen by Provider: 11/05/19 12:31 Source: patient History of Present Illness Provider complaint: Vertigo Onset (ago): day(s) 1 Location: head Pain Consistency: + intermittent Maximum Pain Intensity: 0 Relieved By: + none Exacerbated By: + movement Associated symptoms: + other (Difficulty with balance, facial numbness) The patient is a 84 year old female who presents to the Emergency Room with complaints of intermittent vertigo that began last night while at [employer] but notes that this problem has been ongoing for years. The patient also notes that she has these episodes usually about twice a day. The patient states that her symptoms are exacerbated by movement and not relieved by anything specific. The patient reports having difficulty with balance and walks with a cane. The patient also reports experiencing facial numbness which she states is baseline. The patient mentioned that she had a stroke in February and is on Eliquis. The patient denies feeling like the room is spinning. The patient saw her PCP on October 14 and got a physical therapy referral for balance and gait problems. The patient's daughter has previously reported that the patient awakens at times and feels like she can't walk. The patient saw a spine surgeon and there was no obvious concerns. The patient has a history of peripheral neuropathy and lumbar disc herniation but does not want aggressive treatment. Home Medications Home Medications Medication Instructions Recorded Confirmed Type acetaminophen [Tylenol Extra 500 mg PO Q4 PRN 01/27/19 11/05/19 History Strength] aspirin [Aspir-81] 81 mg PO DAILY 01/27/19 11/05/19 History cyanocobalamin (vitamin B-12) 1,000 mcg PO DAILY 01/27/19 11/05/19 History [Vitamin B-12] sennosides-docusate sodium 1 tab PO BID 01/27/19 11/05/19 History [Senna-S] cholecalciferol (vitamin D3) 25 2,000 units PO DAILY cap 03/02/19 11/05/19 History mcg (1,000 unit) capsule acetaminophen 300 mg-codeine 30 mg 1 tab PO Q6H PRN #30 tab 08/12/19 11/05/19 Rx tablet apixaban 2.5 mg tablet 2.5 mg PO BID #180 tab 10/14/19 11/05/19 Rx atorvastatin 20 mg tablet 20 mg PO HS #90 tab 10/14/19 11/05/19 Rx duloxetine 20 mg capsule,delayed 20 mg PO DAILY #90 cap 10/14/19 11/05/19 Rx release ezetimibe 10 mg tablet 10 mg PO DAILY #90 tab 10/14/19 11/05/19 Rx mirabegron 25 mg tablet,extended 25 mg PO DAILY #90 tab 10/14/19 11/05/19 Rx release 24 hr nystatin 100,000 unit/gram topical 1 appln TOP TID #60 gm 10/14/19 11/05/19 Rx powder pregabalin 75 mg capsule 75 mg PO HS #90 cap 10/14/19 11/05/19 Rx digoxin 125 mcg (0.125 mg) tablet 125 mcg PO DAILY #90 tab 10/15/19 11/05/19 Rx metoprolol succinate 100 mg PO BID 11/05/19 11/05/19 History Allergies Allergy/AdvReac Type Severity Reaction Status Date / Time amoxicillin Allergy Intermediate RASH Verified 11/05/19 14:21 Penicillins Allergy Intermediate RASH Verified 11/05/19 14:21 pravastatin Allergy Intermediate MYALGIA Verified 11/05/19 14:21 simvastatin Allergy Intermediate MYALGIA Verified 11/05/19 14:21 Past Med/Surg History Medical History Acute ischemic stroke (Acute) Allergic rhinitis due to pollen (Acute) Atrial fibrillation Bilateral carotid artery stenosis (Acute) CHF (congestive heart failure) (Resolved 03/19/14) Cystocele, midline (Acute) Depression (Acute) Diabetes mellitus type II, controlled (Acute) Disc degeneration, lumbar (Acute) Dysphasia following cerebrovascular accident (CVA) (Acute) Expressive aphasia (Acute) Hemorrhoids (Acute) History of CVA with residual deficit (Resolved) Hypercholesterolemia (Acute) Lumbar radiculopathy (Acute) Lumbar stenosis with neurogenic claudication (Resolved 03/16/14) Microscopic hematuria (Acute) Neurologic gait dysfunction (Acute) On continuous oral anticoagulation (Acute) Osteoporosis (Chronic) Overactive bladder (Acute) Peripheral neuropathy (Acute) Polycythemia (Acute) Primary localized osteoarthrosis of the hip (Acute) Stress incontinence in female (Acute) Vitamin D deficiency (Acute) Surgical History S/P appendectomy S/P cataract surgery S/P lumbar laminectomy S/P total hip arthroplasty Family History Grandfather Coronary heart disease Mother Coronary heart disease Sister Diabetes Father Coronary heart disease Other Family history non-contributory Denies family history of Ovarian cancer Prostate cancer Myocardial infarction Breast cancer Colorectal cancer Social History Preferred Language: Iraqi Communication Ability: Impaired Hearing Ability: Use of Hearing Aid Tobacco Farmworker Required: No Beliefs That Will Affect Care: None marital status: Current Living Situation: Alone Current Living Situation Comment: House Other Information That Helps Us Care for You: No Feels Safe at Home: Yes Safety Concerns: Feels Safe At This Time Smoking Status: Never smoker Hx Alcohol Use: No Hx Substance Use: No Seatbelt Use: always Sunscreen Use: Yes Review of Systems See HPI for pertinent positives & negatives. and A total of 10 systems reviewed and were otherwise negative Physical Exam Vital Signs Vital Signs - 24 hr 11/05/19 12:21 Temperature 36.3 C L Temperature Source Oral Pulse Rate 69 Pulse Rhythm Regular Pulse Strength Normal Respiratory Rate 16 Respiratory Effort / Characteristics Non-Labored Respiratory Depth Normal Respiratory Pattern Regular Blood Pressure 163/130 H Blood Pressure Mean 141 Blood Pressure Position Lying Pulse Oximetry 96 Oxygen Delivery Method Room Air Sepsis Recent Fever Within 48 Hours No Sepsis New/Unexplained Change in Mental Status No Sepsis Action Taken by Nursing No Action Required GENERAL: Awake, alert, fatigued but well-appearing, in no distress HENT: Normocephalic, atraumatic. Oropharynx with dry mucous membranes and otherwise unremarkable. EYES: Normal conjunctiva. Sclera non-icteric. EOMI. No nystamgus. PEARRL. NECK: Supple. No nuchal rigidity. FROM. No JVD. RESPIRATORY: CTAB. CARDIAC: Regular rate, normal rhythm. Extremities warm and well perfused. Pulses equal. ABDOMEN: Soft, non-distended. No tenderness to palpation. No rebound or guarding. No masses. RECTAL: Deferred. MUSCULOSKELETAL: Chest examination reveals no tenderness. The back is symmetrical on inspection without obvious abnormality. There is no CVA ten derness to palpation. No joint edema. LOWER EXTREMITIES: Calves are equal size bilaterally and non-tender. No edema. No discoloration. NEURO: Normal sensorium. No sensory or motor deficits noted. 5/5 strength and SILT x4 extremities. Cerebellar function intact, including finger to nose, alternating palms, heel to mcneil. SKIN: No rash or jaundice noted. Course Course 1239: Past medical records reviewed. The patient was evaluated in room C08. A complete history and physical exam was performed. 1346: I spoke with the patient about her decision to deny aggressive treatment and she states that she does not remember why she would not want aggressive treatment done. 1527: I spoke with the patient's daughter and she agrees with the plan for admission of the patient. 1600: I spoke with Niru Post PA-C about the patient's case and Dr. Hernandez- Hospitalist will accept the patient for further evaluation. Administered Medications Acetaminophen/Codeine Phosphate (Tylenol W/Codeine #3) 1 tab PO Q6H PRN PRN Reason: pain Stop: 12/05/19 17:52 Last Admin: 11/06/19 00:29 Dose: 1 tab Documented by: [id number] Apixaban (Eliquis) 2.5 mg PO BID QUANG Stop: 12/05/19 20:59 Last Admin: 11/05/19 21:30 Dose: 2.5 mg Documented by: [id number] Atorvastatin Calcium (Lipitor) 20 mg PO HS QUANG Stop: 12/05/19 20:59 Last Admin: 11/05/19 21:30 Dose: 20 mg Documented by: [id number] Gadobutrol (Gadavist 65ml) 6.4 ml IV ONCE PRN PRN Reason: Interaction Checking Stop: 11/09/19 20:30 Last Admin: 11/05/19 20:31 Dose: 6.4 ml Documented by: [id number] Insulin Aspart (Novolog Flexpen) 0 units SC ACHS QUANG Stop: 12/05/19 20:59 Last Admin: 11/05/19 21:39 Dose: Not Given Documented by: [id number] Cosigned by: [id number] Ioversol (Optiray 320 125ml) 118 ml IV ONCE PRN PRN Reason: Interaction Checking Stop: 11/09/19 14:56 Last Admin: 11/05/19 14:58 Dose: 118 ml Documented by: [id number] Metoprolol Succinate (Toprol Xl) 100 mg PO BID QUANG Stop: 12/05/19 20:59 Last Admin: 11/05/19 18:41 Dose: 100 mg Documented by: [id number] Nystatin (Mycostatin) 1 appln EXT TID QUANG Stop: 12/05/19 20:59 Last Admin: 11/05/19 21:30 Dose: 1 appln Documented by: [id number] Pregabalin (Lyrica) 75 mg PO HS QUANG Stop: 12/05/19 20:59 Last Admin: 11/05/19 21:33 Dose: 75 mg Documented by: [id number] Senna/Docusate Sodium (Senokot S) 1 tab PO BID QUANG Stop: 12/05/19 20:59 Last Admin: 11/05/19 21:31 Dose: 1 tab Documented by: [id number] Discontinued Medications Sodium Chloride (Nss) 500 mls @ 999 mls/hr IV .Q31M ONE Stop: 11/05/19 13:01 Last Infusion: 11/05/19 13:42 Dose: 0 mls/hr Documented by: [id number] Admin: 11/05/19 13:03 Dose: 999 mls/hr Documented by: [id number] Medical Decision Making Differential Diagnosis Differential diagnosis includes etiologies such as benign positional vertigo, dehydration, hypovolemia, anemia, tumor, infection, hypoglycemia, electrolyte abnormalities, cardiac sources, intracerebral event, toxicologic, neurologic, as well as others were entertained. Medical Records Attestation: I reviewed the patient's medical records. Home Medications Current Medication List: was personally reviewed by me Laboratory Data Attestation: I reviewed the patient's lab results. Result diagrams: 11/05/19 13:05 11/05/19 13:05 Lab Results 11/05/19 11/05/19 Range/Units 13:05 13:05 WBC 7.27 (4.8-10.8) K/uL RBC 4.63 (4.2-5.4) M/uL Hgb 15.4 (12.0-16.0) g/dL Hct 46.1 (37-47) % MCV 99.6 (80-100) fL MCH 33.3 (25-34) pg MCHC 33.4 (32-36) g/dL RDW Std Deviation 46.9 H (36.4-46.3) fL RDW Coeff of Diya 12.9 (11.5-14.5) % Plt Count 155 (130-400) K/uL MPV 10.5 H (7.4-10.4) fL Immature Gran % (Auto) 0.1 % Neut % (Auto) 57.5 % Lymph % (Auto) 29.3 % [place] % (Auto) 11.6 % Eos % (Auto) 1.2 % Baso % (Auto) 0.3 % Immature Gran # (Auto) 0.01 (0.00-0.02) K/uL Neut # (Auto) 4.18 (1.4-6.5) K/uL Lymph # (Auto) 2.13 (1.2-3.4) K/uL [place] # (Auto) 0.84 H (0.11-0.59) K/uL Eos # (Auto) 0.09 (0-0.5) K/uL Baso # (Auto) 0.02 (0-0.2) K/uL Sodium 140 (136-145) mmol/L Potassium 3.8 (3.5-5.1) mmol/L Chloride 104 (98-107) mmol/L Carbon Dioxide 33 H (21-32) mmol/L Anion Gap 3.0 (3-11) BUN 15 (7-18) mg/dl Creatinine 0.64 (0.6-1.2) mg/dl Est Cr Clr Drug Dosing 63.4 ml/min Est GFR ( Amer) 96.3 Est GFR (Non-Af Amer) 83.1 BUN/Creatinine Ratio 24.1 H (10-20) Glucose 171 H (70-99) mg/dl Calcium 9.0 (8.5-10.1) mg/dl Phosphorus 3.2 (2.5-4.9) mg/dl Magnesium 1.9 (1.8-2.4) mg/dl Total Bilirubin 0.7 (0.2-1) mg/dl AST 16 (15-37) U/L ALT 28 (12-78) U/L Alkaline Phosphatase 74 (45-117) U/L Troponin I < 0.015 (0-0.045) ng/ml Total Protein 7.5 (6.4-8.2) gm/dl Albumin 3.9 (3.4-5.0) gm/dl Globulin 3.6 (2.5-4.0) gm/dl Albumin/Globulin Ratio 1.1 (0.9-2) Lipase 137 (73-393) U/L TSH 0.690 (0.300-4.500) uIu/ml Imaging Data Radiologist's Impression: Radiology results as stated below per my review and the radiologist's interpretation: XR chest 1V portable HISTORY: Atypical Chest Pain COMPARISON: Chest 06/14/2019. FINDINGS: No pneumothorax. No pleural effusions. The heart is normal in size. No evidence for pulmonary edema. Mild interstitial thickening at the lung bases. This is likely chronic. No new focal lung consolidations to suggest pneumonia. No evidence for pulmonary edema. IMPRESSION: Mild bibasilar chronic interstitial thickening. Otherwise, no acute process within the chest. ACT 112: Negative or not required by law. Electronically signed by: Alfonso Hill M.D. 11/05/2019 1:[address] NONCONTRAST CT DOSE: 638.56 mGycm HISTORY: dizziness, vertigo, h/o cva TECHNIQUE: Multiaxial CT images of the head were performed without the use of intravenous contrast. Automated exposure control was utilized for this study. A dose lowering technique was utilized adhering to the principles of ALARA. Comparison: Head CT 06/14/2019. Findings: The paranasal sinuses and mastoid air cells are clear. The calvarium and skull base are intact. There is no mass, hematoma, midline shift, acute infarct. White matter hypodensity is nonspecific but suggestive of microvascular ischemic change. The ventricles and sulci demonstrate mild age-related involutional changes. Old lacunar infarcts within the bilateral basal ganglia, unchanged. Impression: No significant change compared to the prior study. No acute intracranial abnormality. ACT 112: Negative or not required by law. Electronically signed by: Alfonso Hill M.D. 11/05/2019 3:[address] angio head w con HISTORY: dizziness, vertigo, h/o cva TECHNIQUE: Multiaxial CT angiography of the head was performed IV contrast: 100 cc nonionic Maximum intensity projection images were also obtained. A dose lowering technique was utilized adhering to the principles of ALARA. COMPARISON: None. FINDINGS: There is no mass, hematoma, midline shift, or acute infarct. Visualized intracranial internal carotid arteries, distal vertebral arteries, and basilar artery are widely patent. There is no significant stenosis, occlusion, or aneurysm seen within the bilateral ACAs, MCAs, or plastic surgery assistant. IMPRESSION: No significant stenosis, occlusion, or aneurysm within the [place]. ACT 112: Negative or not required by law. The above report was generated using voice recognition software. It may contain grammatical, syntax or spelling errors. Electronically signed by: Willie Montes M.D. 11/05/2019 3:08 PM NECK CTA HISTORY: dizziness, vertigo, h/o cva TECHNIQUE: Multiaxial CT images of the neck were performed following the intravenous administration of contrast to evaluate the major cervical vessels. Maximum intensity projection images were also obtained. All measurements were calculated based on NASCET criteria. A dose lowering technique was utilized adhering to the principles of ALARA. COMPARISON STUDY: Carotid Doppler 10/18/2017. FINDINGS: The aortic arch and proximal great vessels are widely patent. Moderate calcified plaque within the bilateral carotid arteries. The bilateral vertebral arteries are patent. No evidence for vertebral artery dissection. There is approximately 50% narrowing within the proximal left internal carotid artery. There is approximately 60% narrowing at the right carotid bifurcation and origin of the right internal carotid artery due to the calcified plaque. The bilateral mid to distal carotid arteries are widely patent. IMPRESSION: 1. Approximately 60% narrowing at the right carotid bifurcation and origin of the right internal carotid artery with approximately 50% narrowing at the proximal left internal carotid artery due to the calcified plaque. 2. The bilateral vertebral arteries are widely patent. ACT 112: Negative or not required by law. Electronically signed by: Alfonso Hill M.D. 11/05/2019 3:18 PM ECG Data Attestation: I personally reviewed and interpreted this ECG as follows: Indication: + other (Dizziness) Rate (beats per minute): 65 Rhythm: + sinus rhythm ECG Intervals/blocks: + First degree AV block, + Normal QRS (86) and + Normal QT-c (405) ECG ST segments: no ST depression and no ST elevation Blood Pressure Blood Pressure Findings: Elevated blood pressure Blood Pressure Disposition: further management by hospitalist ALLI Coles The patient is a pleasant 84-year-old woman accompanied by her 2 elderly sisters with a past medical history of CVA and chronic gait disturbance, carotid artery stenosis, paroxysmal A. saira on John presents emergency department for dizziness/imbalance with complaint of left facial numbness and difficulty "g etting her words out" per HPI. Note, the patient is a poor historian regarding the severity of the symptoms and whether or not they are new. She reports her gait problems have been ongoing for years which is documented in prior notes. When asked about her facial numbness and speech issues she reports that this also occurs daily, though she is unable to explicitly say how any of these were any worse though she feels confident that there was a difference that compelled her to want to come to the hospital. On arrival the patient is in no acute distress, afebrile with stable vital signs. She appears clinically dry. She has no overt focal deficits. EKG without overt acute ischemia. Chest x-ray with chronic bibasilar interstitial thickening and otherwise no acute process. WBC, H/H, platelets wnl. Chemistry without acidosis. LFTs and electrolytes unremarkable. Troponin negative. CTA of the head and neck was performed and negative for ICH or ischemia. Moderate bilateral carotid disease is noted. Did discuss the patient's visit today with her daughter who is currently in [place] and she agrees with plan for admission for further evaluation of her symptoms of which the patient's daughter says that she is not previously complained of facial numbness or problems with her speech. She further agrees with likely plan for PT evaluation and possible placement if indicated. Patient is also agreeable. Case was discussed with Vanessa Paredes, AVELINO BRIAN, who will evaluate the patient for admission. MRI ordered and pending. Impression & Plan Dizziness, Facial numbness, Aphasia, Acute dehydration Discharge Plan Visit Data *Final* Discharge Date/Time: 11/05/19 17:27 Chief Complaint: Vertigo Stated Complaint: Intermittent dizziness couple days ED Provider: Sage Varghese Discharge Problem: Dizziness, Facial numbness, Aphasia, Acute dehydration Patient Disposition: Admitted As Inpatient Discharge Instructions Interventions: ED Discharge Assessment Last Done: 11/05/19 17:27 The scribe's documentation has been prepared under my direction and personally reviewed by me in its entirety. I confirm that the note above accurately reflects all work, treatment, procedures, and medical decision making performed by me.
[2019-11-05] MEDS ORDERED: GADOBUTROL 65ML VIAL IV PRN (20:31)
[2019-11-05] MEDS ORDERED: PREGABALIN 75 MG CAP PO SCH (21:00)
[2019-11-05] MEDS ORDERED: ATORVASTATIN 20 MG TAB PO SCH (21:00)
--- NOTE | 2019-11-05 21:14 | Magnetic Resonance Report ---
MR brain wo/w con HISTORY: 84 years-old Female ataxia, vertigo, h/o cva acute stroke like symptoms COMPARISON: CTA head and neck of same day TECHNIQUE: Multiplanar multisequence MRI of the brain was obtained both with and without the use of 6 .4 mL Gadavist FINDINGS: Boss Dyer localizer images demonstrate no gross extracranial abnormality. There is no restricted diffusio n to suggest acute or subacute infarct. Midline structures including the corpus callosum, brainstem, optic chiasm, pituitary and pineal glands appear unremarkable. No cerebellar tonsillar herniation. De generative changes are noted about the imaged cervical spine. Study is mildly motion degraded. No acute intracranial hemorrhage, midline shift, abnormal extra-axial collection, hydrocephalus or in tracranial mass. Age-related involutional changes with ex vacuo ventriculomegaly. Moderate T2/flair h yperintensities of the white matter suggest chronic microvascular ischemic disease. Remote lacunar in farction of the left frontal lobe marrero radiata with additional remote lacunar infarctions of the bi lateral basal ganglia. Major flow voids appear patent and unremarkable. Mastoid air cells are general ly clear. No significant paranasal sinus disease. Prior bilateral cataract appear. The skull and soft tissues are unremarkable. No abnormal intra-axial or extra-axial enhancement. IMPRESSION: 1. No acute intracranial abnormality, specifically there is no evidence of acute or subacute infarct. 2. No abnormal enhancement. 3. Age-related involutional changes with moderate chronic microvascular ischemic disease and remote l acunar infarctions as above. ACT 112: Negative or not required by law. The above report was generated using voice recognition software. It may contain grammatical, syntax o r spelling errors. Electronically signed by: Tex Glass M.D. 11/05/2019 9:13 PM
[2019-11-05] MEDS: APIXABAN 2.5 MG TAB PO SCH (21:30)
[2019-11-05] MEDS: NYSTATIN POWDER 15GM BTL EXT SCH (21:30)
[2019-11-05] MEDS: DOCUSATE SODIUM/SENNA 50/8.6MG TAB PO SCH (21:31)
[2019-11-05] MEDS: INSULIN ASPART 100 UNITS/ML 3 ML PEN SC SCH (21:39)
[2019-11-06 06:11] LABS: Hematocrit (blood only) 45.8 % (37-47); Hemoglobin 15.4 g/dL (12.0-16.0); Mean Corpuscular Hemoglobin 33.4 pg (25-34); Mean Corpuscular Hgb Conc 33.6 g/dL (32-36); Mean Corpuscular Volume 99.3 fL (80-100); Mean Platelet Volume 10.6 fL (7.4-10.4); Platelet Count 162 K/uL (130-400); RDW Coefficient of Variation 13.1 % (11.5-14.5); RDW Standard Deviation 47.3 fL (36.4-46.3); Red Blood Count 4.61 M/uL (4.2-5.4); White Blood Count 8.38 K/uL (4.8-10.8)
[2019-11-06 06:46] LABS: Albumin Level 3.7 gm/dl (3.4-5.0); Calcium 8.7 mg/dl (8.5-10.1); Creatinine Clr Calc Pharmacy 50.6 ml/min; Est GFR (African American) 79.6; Est GFR (Non-African American) 68.7; Potassium 3.8 mmol/L (3.5-5.1)
[2019-11-06 06:49] LABS: Bilirubin,Total 0.8 mg/dl (0.2-1); Globulin 3.6 gm/dl (2.5-4.0); Total Protein 7.3 gm/dl (6.4-8.2)
[2019-11-06] MEDS: INSULIN ASPART 100 UNITS/ML 3 ML PEN SC SCH ×3 (08:55→12:26)
[2019-11-06] MEDS: DOCUSATE SODIUM/SENNA 50/8.6MG TAB PO SCH (08:55)
[2019-11-06] MEDS: APIXABAN 2.5 MG TAB PO SCH (08:55)
[2019-11-06] MEDS: NYSTATIN POWDER 15GM BTL EXT SCH ×2 (08:56→13:25)
[2019-11-06] MEDS: METOPROLOL SUCC 50MG EXT REL TAB PO SCH (08:56)
[2019-11-06] MEDS ORDERED: EZETIMIBE 10 MG TABLET PO SCH (09:00)
[2019-11-06] MEDS ORDERED: DULOXETINE HCL 20 MG CAP PO SCH (09:00)
[2019-11-06] MEDS ORDERED: ASPIRIN 81 MG ECTAB PO SCH (09:00)
[2019-11-06] MEDS ORDERED: CHOLECALCIFEROL 1,000 UNITS 25 MCG TAB PO SCH (09:00)
[2019-11-06] MEDS ORDERED: MIRABEGRON ER 25 MG TAB PO SCH (09:00)
[2019-11-06] MEDS ORDERED: CYANOCOBALAMIN 500 MCG TABLET (VITAMIN B-12) PO SCH (09:00)
[2019-11-06] MEDS ORDERED: DIGOXIN 0.125 MG TAB PO SCH (16:00)
--- NOTE | 2019-11-06 18:41 | Discharge Summary ---
Date of Service November 06, 2019 Admission HPI Per Admitting Provider This is an 84 yo F with PMHx of chronic CHF, atrial fibrillation, HTN, HLD, bilateral carotid artery stenosis, DM type II, history of ischemic CVA with residual unsteady gait, lumbar radiculopathy, DJD lumbar spine, peripheral neuropathy, polycythemia, and osteoporosis who presents with acute worsening of dizziness and gait disturbance over the past 3 days. Patient lives at home by herself, uses a walker for ambulation at all times, felt very unsteady and was fearful for her safety, therefore called her sisters to bring her to the ER. Patient reports that standing makes her significantly dizzy, however when sitting still her symptoms are much improved. She denies any changes in her visual status currently, but admits having worse right-sided blurred vision earlier today. She denies any facial numbness, slurred speech, focal weakness in upper or lower extremities. At baseline, she does have some weakness in the lower extremities secondary to gait/residual deficits s/p CVA in January 2017. Principal Diagnosis Orthostasis Discharge Exam Constitutional WD/WN, vitals as above Eyes + anicteric sclerae ENMT Ears: no hearing impairment Neck trachea midline Respiratory normal respiratory effort, lungs clear to auscultation Cardiovascular RRR, no murmur, no edema Gastrointestinal (Abdomen) Inspection/Auscultation: normal bowel sounds Percussion/Palpation: abdomen soft; abdomen nontender Musculoskeletal Head/Neck/Chest: normocephalic and head atraumatic Skin no rashes, warm and dry Neurologic moves all extremities Motor/Sensory: no tremor Psychiatric A+Ox3, euthymic affect Discharge Data Allergies Allergy/AdvReac Type Severity Reaction Status Date / Time amoxicillin Allergy Intermediate RASH Verified 11/05/19 14:21 Penicillins Allergy Intermediate RASH Verified 11/05/19 14:21 pravastatin Allergy Intermediate MYALGIA Verified 11/05/19 14:21 simvastatin Allergy Intermediate MYALGIA Verified 11/05/19 14:21 Consultations 11/05/19 15:59 ED Decision to Admit Stat 11/05/19 17:53 Consult Case Management - Discharge Planning Routine Ordered Studies 11/05/19 14:31 CT angio head w con Stat CT angio neck with con Stat CT head/brain wo con Stat 11/05/19 15:59 MR brain wo/w con Stat Hospital Course (1) Gait abnormality: - After CVA in January 2017 her gait was affected despite several PT/OT therapy referrals - she subsequently fell and sustained a left subcapital femoral fracture no s/p surgical fixation in January 2019. - Also has peripheral neuropathy that is likely contributing - No acute findings to explain this and seemed to do rather well with PT/OT here - but will set up home PT/OT services; recommend to continue using walker and cane with ambulation (2) Dizziness: - Head MRI - negative for acute strokes - Evidence of carotid stenosis of 60% at bifrucation and origin of the ROSY with 50 % narrowing at the proximal left ICA due to calcified plaque. - Has also been a chronic issue since her previous CVA and has residual R sided weakness - Did check orthostatic BP -- 143/76 with laying down, 148/71 sitting, but dropped to 117/67 with standing which is positive findings - also states she felt better after some IVF in the ED so possibly orthostasis could have been worse prior to admission --She can have rather high BP readings but given findings of orthostasis did not adjust BP medications; advised slow position changes and compression stockings for conservative measures; educated on proper oral intake and monitoring of urine for appropriate hydration (3) History of CVA with residual deficit: - January 2017 suffered left ganglion ischemic stroke. Follow with [facility] as outpatient, Dr. Ag previously however did not feel she needed further follow up as of December 2018 - Did reports transient L cheek numbness and R hand numbness prior to admission that spontaneously resolved - uncertain of these findings as not too consistent with TIA/stroke and no findings on imaging - she would be at risk for TIA but do not suspect this is the case -- Discussed possibility of switching ASA over to Plavix and continuing Eliquis but no good evidence shows this improves outcome in general when used with Eliquis but this could be considered if ongoing issues with transient neuro symptoms (4) Bilateral carotid artery stenosis: - Continue eliquis, no hx with bleeding complications. - Neck CTA reviewed as above. - Most recent lipid panel was good with LDL less than 100 - Pt would not want aggressive intervention and is not felt to be a good candidate for surgery. Follow as outpt with PCP for monitoring (5) CHF (congestive heart failure): - Chronic diastolic, no acute exacerbation - Continue metoprolol succinate 100 mg BID, digoxin 125 mcg daily, asa 81 mg, atorvastatin 20 mg HS (6) Atrial fibrillation: - Continue on eliquis 2.5 mg BID due to age/weight adjustments (7) Hypertension: - Metoprolol - orthostasis discussed above (8) Hyperlipidemia: - Cont statin therapy (9) Diabetes mellitus type II, controlled: - Last A1c 6.8; continue dietary management (10) Peripheral neuropathy: - Continue Lyrica 75 mg HS (11) Polycythemia: - H&H with 15.4 and 44 respectively, follow H&H as outpatient. Pt does not follow with hematology as an outpatient at this time. - Maybe some component of hemoconcentration? (12) Psoriasis: - Multiple lesions overlying upper extremities and affecting extensor surfaces. Pt denies irritation/itch/pain. Follows with dermatology as outpt. (13) DVT prophylaxis: - Eliquis CODE: Full Dispo: From home, lives alone but has fall alert and will have home PT/OT Total Time Total Time Spent Total Time Spent (In Minutes): Greater than 30 minutes Discharge Plan Discharge Items Patient Disposition: Home - Home Health Services Reason For Visit: DIZZINESS, UNSTEADY GAIT Discharge Diagnosis: Orthostasis Activity: Resume your previous activity Non-emergency contact: Primary Care Provider Call non-emergency contact if: you have any medication questions, your symptoms worsen and you have a fever Follow-up/Referrals: Carlos Moreno MD [Primary Care Provider] - 11/10/19 1:00 pm (Patient will see Rebekah Colon NP. If this date and time is not suitable, please phone the office to reschedule.) Diet: Regular Addtl Attending Provider Instructions: Dizziness and Unsteadiness: - This may be a little multifactorial between residual issues from your previous stroke, hip fracture, neuropathy, and likely blood pressure related - You do have carotid stenosis which is plaque build-up in the vessels of the neck. You are on the right medications for this, aspirin and making sure cholesterol is good. - We did check orthostatic blood pressures. Normally the blood pressure should rise when you go from sitting to standing. -- Your blood pressure was 143/76 when laying down and 148/71 when sitting up which is good and is normal. However your blood pressure went from that to 117/67 when you were standing which is a good drop and what we would consider orthostasis. Granted thats not a bad blood pressure but that drastic difference can cause some dizziness/unsteadiness. -- Some things you can do to help with this is to change your positiion slowly. When you are sitting it may be best to sit a couple minutes before standing up. Then while standing wait a minute or two and make sure you are not dizzy then walk. continue to use your walker and cane to help with extra walking support -- You can also use compression stockings on your legs. This can help push blood out of the legs and get that quickly moved to the upper part of your body. -- Another thing to do is make sure you are staying hydrated. The best thing to look at is your urine color. You want it pale yellow or clear as that is a sign you are drinking enough. If it is dark or cloudy it means you need more fluids. - It is possibly the Metoprolol could be causing some of this as it is a blood pressure medication. However is also used to help the heart. Would recommend to check you blood pressure at home and write them down to see how they trend. Your family doctor or Dr. Rodriguez can look at them to see if anything needs adjusted Numbness: - It is uncertain what the numbness was caused by. Thankfully we do not see any acute strokes on the MRI of your brain. Given that the symptoms were on different sides of the body is different and not typical of strokes or TIAs (transient ischemic attacks - some people call these "mini strokes") - If this would return it is recommended to have it checked out by doctor to just make sure. Given your stroke history and blockages in your neck, you are at risk for this however you are on the right medications to help prevent this which is good. - At this time we will not make adjustments to your medications. We discussed on whether to change your aspirin to Plavix. At this time we do not have evidence to do this but if you have further issues with numbness, using Plavix in place of aspirin could be considered. -- At this time there is not a lot of research that supports added benefit from switching aspirin/plavix when you are also on Eliquis. Home Medications: - Continue your home medications as previously prescribed. We did not make adjustments to these Case management also made arrangements for home physical therapy for you. Pending Studies at Discharge: No Stand-Alone Forms: My [facility], Smoking Cessation Medications and DC Order Prescriptions: Continued digoxin [Digox] 125 mcg (0.125 mg) tablet 125 mcg PO DAILY Qty: 90 RF: 1 acetaminophen-codeine 300-30 mg tablet 1 tab PO Q6H PRN (Reason: pain) Qty: 30 RF: 0 Eliquis 2.5 mg tablet 2.5 mg PO BID Qty: 180 RF: 1 atorvastatin 20 mg tablet 20 mg PO HS Qty: 90 RF: 1 duloxetine 20 mg capsule,delayed release(DR/EC) 20 mg PO DAILY Qty: 90 RF: 1 ezetimibe 10 mg tablet 10 mg PO DAILY Qty: 90 RF: 1 Myrbetriq 25 mg tablet extended release 24 hr 25 mg PO DAILY Qty: 90 RF: 1 pregabalin [Lyrica] 75 mg capsule 75 mg PO HS Qty: 90 RF: 0 nystatin 100,000 unit/gram powder 1 appln TOP TID Qty: 60 RF: 5 cyanocobalamin (vitamin B-12) [Vitamin B-12] 1,000 mcg Tablet 1,000 mcg PO DAILY RF: 0 aspirin [Aspir-81] 81 mg Tablet,Delayed Release (Dr/Ec) 81 mg PO DAILY RF: 0 acetaminophen [Tylenol Extra Strength] 500 mg Tablet 500 mg PO Q4 PRN (Reason: Fever Or Pain) RF: 0 sennosides-docusate sodium [Senna-S] 8.6-50 mg Tablet 1 tab PO BID RF: 0 cholecalciferol (vitamin D3) [Vitamin D3] 1,000 unit capsule 2,000 units PO DAILY RF: 0 metoprolol succinate 100 mg tablet extended release 24 hr 100 mg PO BID RF: 0 Discharge Orders: Discharge Order (Routine); Ordered 11/06/19 Ordered By: Anastasiya Varela Admission Data Admit Date/Time: 11/05/19 16:06 Attending Provider: Praveen Salazar Admit Provider: Janet Hernandez Primary Care Provider: Carlos Moreno Other Providers: Janet Hernandez Other Interventions: Discharge Summary Assessment (RN) Last Done: 11/06/19 16:35 DC Date/Time DO NOT enter until pt leaves facility: 11/06/19 17:34 Coding Level of Care Code D/C Day Management >30 mins Diagnoses Gait abnormality R26.9 Dizziness R42 History of CVA with residual deficit I69.30 Bilateral carotid artery stenosis I65.23 CHF (congestive heart failure) I50.9 Atrial fibrillation I48.91 Hypertension I10 Hyperlipidemia E78.5 Diabetes mellitus type II, controlled E11.9 Peripheral neuropathy G62.9 Polycythemia D75.1 Psoriasis L40.9 DVT prophylaxis Z29.9
== END 2019-11-06 17:34 | disposition home health service (06) | DRG 92 ==
LOC: ED 12:10 → SUATTDRO 16:06 → INTOOBSV 16:06 → 2W 16:06

== ENCOUNTER 2022-10-28 17:30 | Inpatient (IN) ==
[2022-10-28] MEDS ORDERED: MoRPHine SULFATE 2 MG/ML CARP IV PRN (17:40)
[2022-10-28] MEDS ORDERED: MoRPHine SULFATE 4 MG/ML 1 ML CARP\\VIAL IV PRN (17:40)
[2022-10-28] MEDS ORDERED: ACETAMINOPHEN 1,000 MG/100 ML VIAL IV STA (17:44)
[2022-10-28] MEDS ORDERED: SODIUM CHLORIDE 0.9% 1000ML 1,000 ML IV SCH (17:45)
--- NOTE | 2022-10-28 17:58 | Emergency Department Note ---
Impression & Plan Periprosthetic fracture around internal prosthetic right hip joint, initial encounter, Fall, Hypokalemia, On continuous oral anticoagulation ED Provider Note NAME: FLYNN GABRIEL AGE: 87 SEX: F ARRIVES VIA: Ambulance INFORMANT: Patient ED PROVIDER(S): Sage Varghese MD CHIEF COMPLAINT: Fall, right hip pain. PLAN: Disposition: Admit MEDICAL DECISION MAKING: The patient is a pleasant 87-year-old woman with a past medical history of atrial fibrillation on Eliquis, history of CVA with residual right-sided weakness, history of bilateral hip arthroplasties, type 2 diabetes who presents to the emergency department via EMS for evaluation of right hip and thigh pain after having mechanical fall when she was attempting to get out of her wheelchair and thinks she got her leg caught falling to the ground. She denies hitting her head or losing consciousness. She has any recent illness including fevers, chills, cough, congestion, GI or symptoms. On arrival patient uncomfortable but no acute distress, afebrile with stable vital signs. She appears clinically dry. She has tenderness of the proximal to mid right thigh without gross deformity. There is no overt shortening. Distal PMS is intact. WBC, H/H and platelets within normal limits. Chemistry without metabolic acidosis. Potassium 2.9 with repletion initiated. LFTs unremarkable. UA without convincing evidence of infection with epithelial cells present. COVID- 19, RNA, GIANA test was negative. Chest x-ray negative for acute abnormality. Plan films of the right hip and pelvis demonstrate minimally displaced periprosthetic spiral fracture of the right femoral shaft. CT of the head was negative for acute findings. Patient's prior DALJIT was done by Dr. Emanuel, [facility] orthopedic surgery. Case discussed with Dr. Deluna, orthopedic surgery on-call for MD reviewed the images with Dr. Figueroa in and agrees with admission to hospital service for anticipated surgical repair. Case was discussed with Dr. Perez, [facility] hospitalist, who will evaluate the patient for admission. Triage Nursing notes reviewed and agree them. Prior/outside medical records reviewed Vital Signs: reviewed Differential diagnosis: Fracture, dislocation, contusion, intra-abdominal, pneumothorax, intrathoracic, intracranial, neurologic, compartment syndrome, rhabdomyolysis, as well as other pathologies. ER treatment provided: See below. Diagnostics interpreted by me: ECG: Normal sinus rhythm, 63 bpm, no ectopy, Nonspecific ST abnormality, no overt ST elevation or depression, QTc 45 QRS 70. Cardiac Monitoring: An order for continuous cardiac monitoring was placed and demonstrated normal sinus rhythm, 63 bpm, no ectopy. Laboratory studies: See below Imaging studies: See below Consultation(s): Dr. Deluna, [facility] orthopedic surgery on-call for [place]. Dr. Perez, [facility] hospitalist HPI: The patient is a pleasant 87-year-old woman with a past medical history of atrial fibrillation on Eliquis, history of CVA with residual right-sided weakness, history of bilateral hip arthroplasties, type 2 diabetes who presents to the emergency department via EMS for evaluation of right hip and thigh pain after having mechanical fall when she was attempting to get out of her wheelchair and thinks she got her leg caught falling to the ground. She denies hitting her head or losing consciousness. She has any recent illness including fevers, chills, cough, congestion, GI or symptoms. ROS: See above HPI for pertinent positives & negatives. A total of 10 systems reviewed and were otherwise negative. VITALS:See Below PHYSICAL EXAMINATION: GENERAL: Awake, alert, uncomfortable-appearing, in no distress HENT: Normocephalic, atraumatic. Oropharynx with dry mucous membranes and otherwise unremarkable. EYES: Normal conjunctiva. Sclera non-icteric. NECK: Supple. No nuchal rigidity. FROM. No JVD. RESPIRATORY: Clear to auscultation. CARDIAC: Regular rate, normal rhythm. Extremities warm and well perfused. Pulses equal. ABDOMEN: Soft, non-distended. No tenderness to palpation. No rebound or guarding. No masses. RECTAL: Deferred. MUSCULOSKELETAL: Chest examination reveals no tenderness. The back is symmetrical on inspection without obvious abnormality. No midline CTL spine ttp or stepoffs. There is no CVA tenderness to palpation. Pelvis is stable. Tenderness of the proximal to mid right thigh without gross deformity. There is no overt shortening. Distal PMS is intact. LOWER EXTREMITIES: Calves are equal size bilaterally and non-tender. No edema. No discoloration. NEURO: Normal sensorium. No sensory or motor deficits noted. SKIN: No rash or jaundice noted. Sage Varghese MD Past Med/Surg History Medical History Acute ischemic stroke Allergic rhinitis due to pollen Atrial fibrillation Bilateral carotid artery stenosis CHF (congestive heart failure) (03/19/14) Cystocele, midline Depression Diabetes mellitus type II, controlled Disc degeneration, lumbar Dysphasia following cerebrovascular accident (CVA) Expressive aphasia Hemorrhoids History of CVA with residual deficit Hypertension Lumbar radiculopathy Lumbar stenosis with neurogenic claudication (03/16/14) Microscopic hematuria Neurologic gait dysfunction On continuous oral anticoagulation Osteoporosis Overactive bladder Peripheral neuropathy Polycythemia Primary localized osteoarthrosis of the hip Stress incontinence in female Vitamin D deficiency Surgical History S/P appendectomy S/P cataract surgery S/P lumbar laminectomy S/P total hip arthroplasty Family History Grandfather Coronary heart disease Mother Coronary heart disease Sister Diabetes Father Coronary heart disease Other Family history non-contributory Denies family history of Ovarian cancer Prostate cancer Myocardial infarction Breast cancer Colorectal cancer Social History Smoking Status: Never smoker Second Hand Exposure: No; Do You Dip or Chew Tobacco: No; Tobacco Cessation Education Requested by Patient: No Hx Alcohol Use: No Hx Substance Use: No Preferred Language: Kyrgyz Communication Ability: Effective Visual Impairment: No Limitations Hearing Ability: Use of Hearing Aid Research Scholar Required: No Beliefs That Will Affect Care: None marital status: Current Living Situation: Alone Current Living Situation Comment: her lives in [facility], she has a life alert that she wears at home current occupational status: retired 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 How many Children do You have: 1 Other Information That Helps Us Care for You: No Feels Safe at Home: Yes Safety Concerns: Feels Safe At This Time Childhood Exposure to Second-Hand Smoke: No caffeine: Yes during the past year weight has: remained stable Dental Care, Regularly: Yes Physical Activity Frequency: 1-2 Times per Week Seatbelt Use: always Sunscreen Use: Yes Assistive Devices: Cane, Walker and Wheelchair Allergies Allergies Allergy/AdvReac Type Severity Reaction Status Date / Time amoxicillin Allergy Intermediate RASH Verified 10/28/22 20:59 Penicillins Allergy Intermediate RASH Verified 10/28/22 20:59 pravastatin Allergy Intermediate MYALGIA Verified 10/28/22 20:59 simvastatin Allergy Intermediate MYALGIA Verified 10/28/22 20:59 Home Meds Home Medications Medication Instructions Recorded Confirmed cyanocobalamin (vitamin B-12) 1,000 mcg PO QAM 01/27/19 10/28/22 1,000 mcg tablet (Vitamin B-12) sennosides 8.6 mg-docusate sodium 1 tab PO BID 01/27/19 10/28/22 50 mg tablet (Senna-S) cholecalciferol (vitamin D3) 25 1,000 units PO BID 03/02/19 10/28/22 mcg (1,000 unit) capsule (Vitamin D3) aspirin 81 mg tablet,delayed 81 mg PO DAILY 10/28/22 10/28/22 release Previous Rx's Medication Instructions Recorded amlodipine 10 mg tablet 10 mg PO DAILY #90 tabs 02/06/22 mirabegron 25 mg tablet,extended 25 mg PO DAILY #90 tabs 03/13/22 release 24 hr (Myrbetriq) apixaban 2.5 mg tablet (Eliquis) 2.5 mg PO BID #180 tabs 03/19/22 atorvastatin 20 mg tablet 20 mg PO HS #90 tabs 03/19/22 digoxin 125 mcg (0.125 mg) tablet 125 mcg PO QAM #90 tabs 03/19/22 (Digox) duloxetine 20 mg capsule,delayed 20 mg PO QAM #90 caps 03/19/22 release ezetimibe 10 mg tablet 10 mg PO QAM #90 tabs 03/19/22 glipizide 2.5 mg tablet, extended 2.5 mg PO DAILY #90 tabs 03/27/22 release 24 hr pregabalin 75 mg capsule (Lyrica) 75 mg PO HS #90 caps 08/24/22 metoprolol succinate 100 mg 100 mg PO BID #180 tabs 09/26/22 tablet,extended release 24 hr Results & Data (ED) Laboratory Data 10/29/22 06:42 10/29/22 06:42 Lab Results 10/28/22 10/28/22 10/28/22 Range/Units 17:52 17:52 17:52 WBC 7.02 (4.8-10.8) K/ul RBC 4.63 (4.20-5.40) M/uL Hgb 15.0 (12.0-16.0) g/dl Hct 44.1 (37.0-47.0) % MCV 95.2 (80.0-100.0) fL MCH 32.4 (25.0-34.0) pg MCHC 34.0 (32.0-36.0) g/dL RDW Std Deviation 43.6 (36.4-46.3) fL RDW Coeff of Diya 12.5 (11.5-14.5) % Plt Count 192 (130-400) K/uL MPV 10.6 (9.4-12.4) fL Immature Gran % (Auto) 0.4 % Neut % (Auto) 64.1 % Lymph % (Auto) 23.8 % Quay % (Auto) 9.8 % Eos % (Auto) 1.3 % Baso % (Auto) 0.6 % Neut # (Auto) 4.50 (1.40-6.50) K/uL Lymph # (Auto) 1.67 (1.2-3.4) K/uL Quay # (Auto) 0.69 H (0.11-0.59) K/uL Eos # (Auto) 0.09 (0-0.50) K/uL Baso # (Auto) 0.04 (0-0.2) K/uL Immature Gran # (Auto) 0.03 (0.01-0.20) K/uL PT 11.1 (9.0-12.0) Seconds INR 1.0 (0.9-1.1) APTT 27.0 (21.0-31.0) Seconds PTT Ratio 1.0 Sodium 142 (136-145) mmol/L Potassium 2.9 L (3.5-5.1) mmol/L Chloride 115 H (98-107) mmol/L Carbon Dioxide 23 (21-32) mmol/L Anion Gap 4 (3-11) BUN 14 (6-23) mg/dl Creatinine 0.41 L (0.6-1.2) mg/dl Est Cr Clr Drug Dosing 93.8 ml/min Est GFR ( Amer) 109.2 ml/min Est GFR (Non-Af Amer) 94.2 ml/min BUN/Creatinine Ratio 34.1 H (10-20) Glucose 183 H (70-99(Fasting)) mg/dl Estimat Average Glucose mg/dl Hemoglobin A1c (4.5-5.6) % Calcium 6.6 L (8.5-10.1) mg/dl Total Bilirubin 0.5 (0.2-1.0) mg/dl AST 14 (13-39) U/L ALT 16 (7-52) U/L Alkaline Phosphatase 46 (34-104) U/L Total Protein 5.3 L (6.0-8.3) gm/dl Albumin 3.3 L (3.4-5.0) gm/dl Globulin 2.0 L (2.5-4.0) gm/dl Albumin/Globulin Ratio 1.7 (0.9-2) SARS-CoV-2, RNA, NAAT (NEGATIVE) 10/28/22 10/28/22 Range/Units 17:52 17:52 WBC (4.8-10.8) K/ul RBC (4.20-5.40) M/uL Hgb (12.0-16.0) g/dl Hct (37.0-47.0) % MCV (80.0-100.0) fL MCH (25.0-34.0) pg MCHC (32.0-36.0) g/dL RDW Std Deviation (36.4-46.3) fL RDW Coeff of Diya (11.5-14.5) % Plt Count (130-400) K/uL MPV (9.4-12.4) fL Immature Gran % (Auto) % Neut % (Auto) % Lymph % (Auto) % Quay % (Auto) % Eos % (Auto) % Baso % (Auto) % Neut # (Auto) (1.40-6.50) K/uL Lymph # (Auto) (1.2-3.4) K/uL Quay # (Auto) (0.11-0.59) K/uL Eos # (Auto) (0-0.50) K/uL Baso # (Auto) (0-0.2) K/uL Immature Gran # (Auto) (0.01-0.20) K/uL PT (9.0-12.0) Seconds INR (0.9-1.1) APTT (21.0-31.0) Seconds PTT Ratio Sodium (136-145) mmol/L Potassium (3.5-5.1) mmol/L Chloride (98-107) mmol/L Carbon Dioxide (21-32) mmol/L Anion Gap (3-11) BUN (6-23) mg/dl Creatinine (0.6-1.2) mg/dl Est Cr Clr Drug Dosing ml/min Est GFR ( Amer) ml/min Est GFR (Non-Af Amer) ml/min BUN/Creatinine Ratio (10-20) Glucose (70-99(Fasting)) mg/dl Estimat Average Glucose 194 mg/dl Hemoglobin A1c 8.4 H (4.5-5.6) % Calcium (8.5-10.1) mg/dl Total Bilirubin (0.2-1.0) mg/dl AST (13-39) U/L ALT (7-52) U/L Alkaline Phosphatase (34-104) U/L Total Protein (6.0-8.3) gm/dl Albumin (3.4-5.0) gm/dl Globulin (2.5-4.0) gm/dl Albumin/Globulin Ratio (0.9-2) SARS-CoV-2, RNA, NAAT NEGATIVE (NEGATIVE) Administered Medications Atorvastatin Calcium (Atorvastatin 20 Mg Tab) 20 mg PO HS QUANG Stop: 11/28/22 20:59 Last Admin: 10/29/22 20:25 Dose: 20 mg Documented By: AIMEE Cefazolin Sodium (Ancef 1000mg) 1,000 mg in 7.5 mls @ 2.5 mls/min IV Q8H [facility]; Protocol Stop: 10/30/22 06:02 Last Admin: 10/29/22 22:44 Dose: 2.5 mls/min Documented By: AIMEE Sodium Chloride (Nss 1000ml) 1,000 mls @ 80 mls/hr IV .[id number] QUANG Stop: 10/30/22 17:44 Last Admin: 10/29/22 17:41 Dose: 80 mls/hr Documented By: RENATO Insulin Aspart (Insulin Aspart Per Unit) 0 units SC ACHS QUANG Stop: 11/27/22 21:57 Last Admin: 10/29/22 20:19 Dose: 4 units Documented By: AIMEE Co-signed By: FREDO Admin: 10/29/22 17:40 Dose: 1 units Documented By: RENATO Co-signed By: SONIA Admin: 10/29/22 16:46 Dose: Not Given Documented By: Admin: 10/29/22 09:47 Dose: 1 units Documented By: RENATO Co-signed By: NAMITA Admin: 10/28/22 22:34 Dose: 1 units Documented By: BRENNON Co-signed By: POORNIMA Menthol (Cough Drop (Sugar Free) Souleymane 24 Souleymane/1 Box) 1 souleymane BUCCAL Q2H PRN PRN Reason: Sore Throat Stop: 11/28/22 16:44 Last Admin: 10/29/22 18:10 Dose: 1 souleymane Documented By: RENATO Metoprolol Succinate (Metoprolol Succ 50mg Ext Rel Tab) 100 mg PO BID QUANG Stop: 11/28/22 20:59 Last Admin: 10/29/22 20:25 Dose: 100 mg Documented By: AIMEE Morphine Sulfate (Morphine Sulfate 4 Mg/Ml 1 Ml Carp\Vial) 2 mg IV Q3H PRN PRN Reason: Severe Pain Stop: 11/11/22 21:57 Last Admin: 10/29/22 09:30 Dose: 2 mg Documented By: Admin: 10/29/22 01:28 Dose: 2 mg Documented By: Admin: 10/28/22 22:33 Dose: 2 mg Documented By: BRENNON Pregabalin (Pregabalin 75 Mg Cap) 75 mg PO HS QUANG Stop: 11/28/22 20:59 Last Admin: 10/29/22 20:28 Dose: 75 mg Documented By: AIMEE Senna/Docusate Sodium (Docusate Sodium/Senna 50/8.6mg Tab) 2 tab PO HS QUANG Stop: 11/27/22 21:57 Last Admin: 10/29/22 20:26 Dose: 2 tab Documented By: Admin: 10/28/22 22:32 Dose: 2 tab Documented By: BRENNON Vitamin D (Cholecalciferol 1,000 Units 25 Mcg Tab) 1,000 units PO BID QUANG Stop: 11/28/22 20:59 Last Admin: 10/29/22 20:25 Dose: 1,000 units Documented By: AIMEE Discontinued Medications Hydrocodone Bitart/Acetaminophen (Hydrocodone/Acetamophen 5/325mg Tab) 1 tab PO Q4H PRN PRN Reason: MODERATE Pain (4,5,6) & Pre PT Stop: 11/11/22 21:57 Last Admin: 10/28/22 22:32 Dose: 1 tab Documented By: BRENNON Bupivacaine HCl/Epinephrine Bitart (Bupivacaine/Epinephrine 0.5% Mpf 1:200,000 30 Ml Vial) Confirm Administered Dose 60 ml .ROUTE .STK-MED ONE Stop: 10/29/22 12:54 Last Admin: 10/29/22 15:24 Dose: 60 ml Documented By: LANA Cefazolin Sodium (Cefazolin 2,000 Mg/15 Ml Iv Push) Confirm Administered Dose 2,000 mg IV .STK-MED ONE Stop: 10/29/22 13:06 Last Admin: 10/29/22 13:33 Dose: Not Given Documented By: YAS Sodium Chloride (Nss 1000ml) 1,000 mls @ 150 mls/hr IV .[id number] [facility] Stop: 10/29/22 00:24 Last Infusion: 10/28/22 22:18 Dose: 0 mls/hr Documented By: Infusion: 10/28/22 22:14 Dose: 0 mls/hr Documented By: Infusion: 10/28/22 22:09 Dose: 0 mls/hr Documented By: Admin: 10/28/22 18:05 Dose: 150 mls/hr Documented By: MURPHY Acetaminophen (Ofirmev) 1,000 mg in 100 mls @ 400 mls/hr IV NOW STA Stop: 10/28/22 17:58 Last Infusion: 10/28/22 18:28 Dose: 0 mls/hr Documented By: Admin: 10/28/22 18:04 Dose: 400 mls/hr Documented By: MURPHY Potassium Chloride (K Patrick / Wtr) 10 meq in 100 mls @ 100 mls/hr IV ONE ONE; Protocol Stop: 10/28/22 19:58 Last Infusion: 10/28/22 20:39 Dose: 0 mls/hr Documented By: MARY BETH Admin: 10/28/22 19:17 Dose: 100 mls/hr Documented By: MURPHY Potassium Chloride/Sodium Chloride (Normal Saline W/20 Meq Kcl) 20 meq in 1,000 mls @ 80 mls/hr IV .[id number] [facility]; Protocol Stop: 11/27/22 20:44 Last Infusion: 10/29/22 12:15 Dose: 0 mls/hr Documented By: Admin: 10/29/22 09:40 Dose: 80 mls/hr Documented By: Infusion: 10/29/22 09:17 Dose: 80 mls/hr Documented By: Admin: 10/28/22 20:47 Dose: 80 mls/hr Documented By: [facility] Magnesium Sulfate/Dextrose (Magnesium Sulfate / D5w) 1 gm in 100 mls @ 50 mls/hr IV Q2H QUANG Stop: 10/29/22 11:44 Last Infusion: 10/29/22 13:16 Dose: 0 mls/hr Documented By: Admin: 10/29/22 11:16 Dose: 50 mls/hr Documented By: Infusion: 10/29/22 11:16 Dose: 50 mls/hr Documented By: Admin: 10/29/22 09:16 Dose: 50 mls/hr Documented By: RENATO Cefazolin Sodium (Ancef 2000mg) 2,000 mg in 15 mls @ 3.75 mls/min IV PREOP ONE; Protocol Stop: 10/29/22 13:06 Last Admin: 10/29/22 13:27 Dose: 3.75 mls/min Documented By: [id number] Morphine Sulfate (Morphine Sulfate 4 Mg/Ml 1 Ml Carp\Vial) 2 mg IV Q2H PRN PRN Reason: Severe Pain (Rating 7,8,9,10) Stop: 11/11/22 17:39 Last Admin: 10/28/22 19:20 Dose: 2 mg Documented By: [facility] Tranexamic Acid (Tranexamic Acid / 0.7% Nacl 1000mg/100ml Bag) Confirm Administered Dose 1,000 mg IV .STK-MED ONE Stop: 10/29/22 13:49 Last Admin: 10/29/22 13:45 Dose: 1,000 mg Documented By: [id number] Imaging Data Radiologist's Impression: Hip/Pelvis X-Ray 10/28/22 17:40 SINGLE VIEW PELVIS; 2 VIEWS RIGHT HIP; 3 VIEWS RIGHT FEMUR CLINICAL HISTORY: Fall. Hip pain. Preoperative examination. FINDINGS: An AP view of the pelvis, AP and frog-leg views of the right hip, with AP, frog-leg, and crosstable lateral views of the right femur are obtained. Correlation is made with pelvic x-ray dated 07/15/2019. The skeletal structures are osteopenic. Bilateral hip arthroplasties are in near anatomic alignment. There is chronic posttraumatic deformity of the left pubic ring. No acute fracture is seen involving the left hip or the bony pelvis. There is a minimally displaced periprosthetic spiral fracture of the right proximal femoral shaft. Fracture lucency extends at least 2 cm below the tip of the arthroplasty stem. Overlying soft tissue edema is noted. The distal right femur is intact. The right knee joint is grossly maintained. Ossification superior to the greater trochanter on the left is unchanged. Advanced atherosclerotic calcification is noted in the femoral arteries. Sclerotic change is seen in the sacroiliac joints. IMPRESSION: 1. Minimally displaced periprosthetic spiral fracture of the right femoral shaft as above. 2. No additional fractures seen involving the left hip or the bony pelvis. Electronically signed by: Jd Garza M.D. 10/28/2022 6:23 PM Chest X-Ray 10/28/22 17:44 SINGLE VIEW CHEST CLINICAL HISTORY: Preoperative examination. Hip fracture. FINDINGS: An AP, portable, supine chest radiograph is compared to study dated 11/26/2019. The heart is enlarged noting atherosclerotic calcification of the thoracic aorta. The pulmonary vasculature is noncongested. Chronic interstitial thickening is similar to previous. The lungs and pleural spaces are clear noting bibasilar scarring/atelectasis. No pneumothorax is seen. The skeletal structures are osteopenic. There are chronic/healed right-sided rib fractures. IMPRESSION: Cardiomegaly with no acute cardiopulmonary abnormality. ACT 112: Negative or not required by law. Electronically signed by: Jd Garza M.D. 10/28/2022 6:[address] 10/28/22 17:46 CT SCAN OF THE BRAIN WITHOUT IV CONTRAST CLINICAL HISTORY: Fall. COMPARISON STUDY: CT of the brain dated 11/26/2019. TECHNIQUE: Unenhanced axial CT scan of the brain is performed from the vertex to the skull base. A dose lowering technique was utilized adhering to the principles of ALARA. CT DOSE: 471.71 mGycm FINDINGS: Brain parenchyma: There is age-related involutional change noting [id number] subcortical and periventricular microangiopathic disease. There is no hemorrhage, mass effect, or evidence of acute territorial ischemia by CT criteria. A chronic lacunar infarct is seen in the left marrero radiata. Reyes- white matter differentiation is preserved. No extra-axial fluid collection is seen. Ventricles, sulci, cisterns: Prominent secondary to involutional change. Intracranial vasculature: There is atherosclerotic calcification of the cavernous carotid and vertebral artery. Calvarium: The skeletal structures are osteopenic. There is no depressed calvarial fracture. Sinuses and mastoids: The visualized paranasal sinuses are clear. The mastoid air cells are well pneumatized. Orbits: The bony orbits are grossly intact. There are bilateral ocular lens implants. IMPRESSION: There is no hemorrhage, mass effect, or evidence of acute territorial ischemia by CT criteria. ACT 112: Negative or not required by law. Electronically signed by: Jd Garza M.D. 10/28/2022 7:16 PM Femur X-Ray 10/28/22 17:55 SINGLE VIEW PELVIS; 2 VIEWS RIGHT HIP; 3 VIEWS RIGHT FEMUR CLINICAL HISTORY: Fall. Hip pain. Preoperative examination. FINDINGS: An AP view of the pelvis, AP and frog-leg views of the right hip, with AP, frog-leg, and crosstable lateral views of the right femur are obtained. Correlation is made with pelvic x-ray dated 07/15/2019. The skeletal structures are osteopenic. Bilateral hip arthroplasties are in near anatomic alignment. There is chronic posttraumatic deformity of the left pubic ring. No acute fracture is seen involving the left hip or the bony pelvis. There is a minimally displaced periprosthetic spiral fracture of the right proximal femoral shaft. Fracture lucency extends at least 2 cm below the tip of the arthroplasty stem. Overlying soft tissue edema is noted. The distal right femur is intact. The right knee joint is grossly maintained. Ossification superior to the greater trochanter on the left is unchanged. Advanced atherosclerotic calcification is noted in the femoral arteries. Sclerotic change is seen in the sacroiliac kuldip ints. IMPRESSION: 1. Minimally displaced periprosthetic spiral fracture of the right femoral shaft as above. 2. No additional fractures seen involving the left hip or the bony pelvis. Electronically signed by: Jd Garza M.D. 10/28/2022 6:23 PM Discharge Plan Visit Data Chief Complaint: Fall Stated Complaint: FALL, R THIGH PAIN ED Provider: Sage Varghese Discharge Problem: Periprosthetic fracture around internal prosthetic right hip joint, initial encounter, Fall, Hypokalemia, On continuous oral anticoagulation Patient Disposition: Admitted As Inpatient Discharge Instructions Interventions: ED Discharge Assessment Last Done: 10/28/22 21:34
--- NOTE | 2022-10-28 18:21 | XRay Report ---
SINGLE VIEW CHEST CLINICAL HISTORY: Preoperative examination. Hip fracture. FINDINGS: An AP, portable, supine chest radiograph is compared to study dated 11/26/2019. The heart is enlarged noting atherosclerotic calcification of the thoracic aorta. The pulmonary vasculature is no ncongested. Chronic interstitial thickening is similar to previous. The lungs and pleural spaces are clear noting bibasilar scarring/atelectasis. No pneumothorax is seen. The skeletal structures are ost eopenic. There are chronic/healed right-sided rib fractures. IMPRESSION: Cardiomegaly with no acute cardiopulmonary abnormality. ACT 112: Negative or not required by law. Electronically signed by: Jd Garza M.D. 10/28/2022 6:19 PM
[2022-10-28 18:22] LABS: Basophils # (auto) 0.04 K/uL (0-0.2); Basophils % (auto) 0.6 %; Eosinophils # (auto) 0.09 K/uL (0-0.50); Eosinophils % (auto) 1.3 %; Hematocrit (blood only) 44.1 % (37.0-47.0); Immature Granulocytes # (auto) 0.03 K/uL (0.01-0.20); Immature Granulocytes % (auto) 0.4 %; Lymphocytes # (auto) 1.67 K/uL (1.2-3.4); Lymphocytes % (auto) 23.8 %; Mean Corpuscular Hemoglobin 32.4 pg (25.0-34.0); Mean Corpuscular Volume 95.2 fL (80.0-100.0); Mean Platelet Volume 10.6 fL (9.4-12.4); Monocytes # (auto) 0.69 K/uL (0.11-0.59); Monocytes % (auto) 9.8 %; Neutrophils % (auto) 64.1 %; Platelet Count 192 K/uL (130-400); RDW Coefficient of Variation 12.5 % (11.5-14.5); RDW Standard Deviation 43.6 fL (36.4-46.3); Red Blood Count 4.63 M/uL (4.20-5.40); White Blood Count 7.02 K/ul (4.8-10.8)
--- NOTE | 2022-10-28 18:26 | XRay Report ---
SINGLE VIEW PELVIS; 2 VIEWS RIGHT HIP; 3 VIEWS RIGHT FEMUR CLINICAL HISTORY: Fall. Hip pain. Preoperative examination. FINDINGS: An AP view of the pelvis, AP and frog-leg views of the right hip, with AP, frog-leg, and cr osstable lateral views of the right femur are obtained. Correlation is made with pelvic x-ray dated 09/14/2018. The skeletal structures are osteopenic. Bilateral hip arthroplasties are in near anatomic a lignment. There is chronic posttraumatic deformity of the left pubic ring. No acute fracture is seen involving the left hip or the bony pelvis. There is a minimally displaced periprosthetic spiral fract ure of the right proximal femoral shaft. Fracture lucency extends at least 2 cm below the tip of the arthroplasty stem. Overlying soft tissue edema is noted. The distal right femur is intact. The right knee joint is grossly maintained. Ossification superior to the greater trochanter on the left is unch anged. Advanced atherosclerotic calcification is noted in the femoral arteries. Sclerotic change is s een in the sacroiliac joints. IMPRESSION: 1. Minimally displaced periprosthetic spiral fracture of the right femoral shaft as above. 2. No additional fractures seen involving the left hip or the bony pelvis. Electronically signed by: Jd Garza M.D. 10/28/2022 6:23 PM
[2022-10-28 18:38] LABS: Albumin Globulin Ratio 1.7 (0.9-2); Albumin Level 3.3 gm/dl (3.4-5.0); BUN Creatinine Ratio 34.1 (10-20); Bilirubin,Total 0.5 mg/dl (0.2-1.0); Calcium 6.6 mg/dl (8.5-10.1); Creatinine Clr Calc Pharmacy 93.8 ml/min; Est GFR (African American) 109.2 ml/min; Est GFR (Non-African American) 94.2 ml/min; Potassium 2.9 mmol/L (3.5-5.1); Total Protein 5.3 gm/dl (6.0-8.3)
[2022-10-28] MEDS ORDERED: POTASSIUM CHLORIDE / WTR 10 MEQ/100 ML PLCT IV ONE (18:59)
[2022-10-28 19:02] LABS: Prothrombin Time 11.1 Seconds (9.0-12.0)
--- NOTE | 2022-10-28 19:19 | CT Scan Report ---
CT SCAN OF THE BRAIN WITHOUT IV CONTRAST CLINICAL HISTORY: Fall. COMPARISON STUDY: CT of the brain dated 11/26/2019. TECHNIQUE: Unenhanced axial CT scan of the brain is performed from the vertex to the skull base. A do se lowering technique was utilized adhering to the principles of ALARA. CT DOSE: 471.71 mGycm FINDINGS: Brain parenchyma: There is age-related involutional change noting [id number] subcortical and pe riventricular microangiopathic disease. There is no hemorrhage, mass effect, or evidence of acute ter ritorial ischemia by CT criteria. A chronic lacunar infarct is seen in the left marrero radiata. Reyes- white matter differentiation is preserved. No extra-axial fluid collection is seen. Ventricles, sulci, cisterns: Prominent secondary to involutional change. Intracranial vasculature: There is atherosclerotic calcification of the cavernous carotid and vertebr al artery. Calvarium: The skeletal structures are osteopenic. There is no depressed calvarial fracture. Sinuses and mastoids: The visualized paranasal sinuses are clear. The mastoid air cells are well pneu matized. Orbits: The bony orbits are grossly intact. There are bilateral ocular lens implants. IMPRESSION: There is no hemorrhage, mass effect, or evidence of acute territorial ischemia by CT aaron ortiz. ACT 112: Negative or not required by law. Electronically signed by: Jd Garza M.D. 10/28/2022 7:16 PM
--- NOTE | 2022-10-28 20:19 | History & Physical Report ---
Date of Service October 28, 2022 Assessment & Plan (1) Periprosthetic fracture around internal prosthetic right hip joint, initial encounter: (2) Sensorineural hearing loss (SNHL) of both ears: (3) Osteoporosis: (4) Atrial fibrillation: (5) CHF (congestive heart failure): (6) Lumbar stenosis with neurogenic claudication: (7) Hypertension: (8) Hyperlipidemia: (9) Vitamin D deficiency: (10) Stress incontinence in female: (11) Peripheral neuropathy: (12) Diabetes mellitus type II, controlled: (13) Depression: (14) Anticoagulant long-term use: (15) Diabetes mellitus, type II: Plan Closed right hip periprosthetic fracture- Secondary to mechanical fall Orthopedic surgery is aware, and due to patient being on apixaban, will not likely get surgery for 2 days Continue usual diet Acetaminophen 650 mg p.o. every 6 hours as needed for mild pain or fever Logan 5/325, 1 tablet every 6 hours as needed for moderate pain Morphine sulfate 2 mg IV every 4 hours as needed for severe pain Zofran 4 mg IV every 6 hours as needed Holding apixaban and aspirin Hypokalemia- Given K CL 10 mEq IV for in the ED Placed on NSS + KCl 20 mEq at 80 mils per hour Repeat laboratories in a.m. Atrial fibrillation/hypertension/CHF/history of V. tach- Continue amlodipine, digoxin, metoprolol succinate Hold apixaban and aspirin preoperatively Diabetes mellitus- Hold glipizide Place on Accu-Cheks before meals and at bedtime with NovoLog SSI Hyperlipidemia- Continue atorvastatin 20 mg at bedtime and Zetia B12 deficiency- Continue 1000 mcg daily supplement Depression- Continue duloxetine delayed release 20 mg every morning Bladder spasm- Continue mirabegron 25 mg extended release daily History of Present Illness Chief Complaint: The patient presents to the emergency department with complaint of right hip and thigh pain after mechanical fall as she was attempting to get out of her wheelchair earlier this evening. She landed on her hip and thigh, and denies any other injury or impact, including to her head. She reports that she has been having more of an issue with falling over the past few months. Primary Care Provider: Preston Moreno MD The patient is an 87-year-old female with a past medical history including SNHL bilaterally, osteoporosis, atrial fibrillation, CHF, lumbar stenosis with neurogenic claudication, V. tach, hypertension, hyperlipidemia, vitamin D deficiency, urinary stress incontinence, polycythemia Pat, peripheral neuropathy, overactive bladder, neurologic gait dysfunction, diabetes mellitus type 2, bilateral carotid artery stenosis, depression, psoriasis, long-term anticoagulation, and first-degree AV block. The patient presents to the emergency department with complaint of right hip and thigh pain after mechanical fall as noted above. X-rays in the emergency department showed a right femoral shaft periprosthetic fracture. Significant laboratories: Potassium 2.9, glucose 183, albumin 3.3, calcium 6.6. Patient was COVID-19 negative In ED patient received the following: Morphine 1 mg and 2 mg IV, Tylenol 1 g IV, potassium chloride 10 mill equivalent K rider, NSS at 150 mils per hour Allergies Allergy/AdvReac Type Severity Reaction Status Date / Time amoxicillin Allergy Intermediate RASH Verified 10/28/22 20:59 Penicillins Allergy Intermediate RASH Verified 10/28/22 20:59 pravastatin Allergy Intermediate MYALGIA Verified 10/28/22 20:59 simvastatin Allergy Intermediate MYALGIA Verified 10/28/22 20:59 Home Medications Medication Instructions Recorded Confirmed Type cyanocobalamin (vitamin B-12) 1,000 mcg PO QAM 01/27/19 10/28/22 History 1,000 mcg tablet (Vitamin B-12) sennosides 8.6 mg-docusate sodium 1 tab PO BID 01/27/19 10/28/22 History 50 mg tablet (Senna-S) cholecalciferol (vitamin D3) 25 1,000 units PO BID 03/02/19 10/28/22 History mcg (1,000 unit) capsule (Vitamin D3) amlodipine 10 mg tablet 10 mg PO DAILY #90 tabs 02/06/22 10/28/22 Rx mirabegron 25 mg tablet,extended 25 mg PO DAILY #90 tabs 03/13/22 10/28/22 Rx release 24 hr (Myrbetriq) apixaban 2.5 mg tablet (Eliquis) 2.5 mg PO BID #180 tabs 03/19/22 10/28/22 Rx atorvastatin 20 mg tablet 20 mg PO HS #90 tabs 03/19/22 10/28/22 Rx digoxin 125 mcg (0.125 mg) tablet 125 mcg PO QAM #90 tabs 03/19/22 10/28/22 Rx (Digox) duloxetine 20 mg capsule,delayed 20 mg PO QAM #90 caps 03/19/22 10/28/22 Rx release ezetimibe 10 mg tablet 10 mg PO QAM #90 tabs 03/19/22 10/28/22 Rx glipizide 2.5 mg tablet, extended 2.5 mg PO DAILY #90 tabs 03/27/22 10/28/22 Rx release 24 hr pregabalin 75 mg capsule (Lyrica) 75 mg PO HS #90 caps 08/24/22 10/28/22 Rx metoprolol succinate 100 mg 100 mg PO BID #180 tabs 09/26/22 10/28/22 Rx tablet,extended release 24 hr aspirin 81 mg tablet,delayed 81 mg PO DAILY 10/28/22 10/28/22 History release Past Med/Surg History Medical History (Updated 10/29/22 @ 01:46 by Shashi Perez MD) Acute ischemic stroke Allergic rhinitis due to pollen Atrial fibrillation Bilateral carotid artery stenosis CHF (congestive heart failure) (03/19/14) Cystocele, midline Depression Diabetes mellitus type II, controlled Disc degeneration, lumbar Dysphasia following cerebrovascular accident (CVA) Expressive aphasia Hemorrhoids History of CVA with residual deficit Hypertension Lumbar radiculopathy Lumbar stenosis with neurogenic claudication (03/16/14) Microscopic hematuria Neurologic gait dysfunction On continuous oral anticoagulation Osteoporosis Overactive bladder Peripheral neuropathy Polycythemia Primary localized osteoarthrosis of the hip Stress incontinence in female Vitamin D deficiency Surgical History S/P appendectomy S/P cataract surgery S/P lumbar laminectomy S/P total hip arthroplasty Family History Grandfather Coronary heart disease Mother Coronary heart disease Sister Diabetes Father Coronary heart disease Other Family history non-contributory Denies family history of Ovarian cancer Prostate cancer Myocardial infarction Breast cancer Colorectal cancer Social History Smoking Status: Never smoker Second Hand Exposure: No; Do You Dip or Chew Tobacco: No; Tobacco Cessation Education Requested by Patient: No Hx Alcohol Use: No Hx Substance Use: No Preferred Language: Dutch Communication Ability: Effective Visual Impairment: No Limitations Hearing Ability: Use of Hearing Aid Field Identification Specialist Required: No Beliefs That Will Affect Care: None marital status: Current Living Situation: Alone Current Living Situation Comment: her lives in [facility], she has a life alert that she wears at home current occupational status: retired 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 How many Children do You have: 1 Other Information That Helps Us Care for You: No Feels Safe at Home: Yes Safety Concerns: Feels Safe At This Time Childhood Exposure to Second-Hand Smoke: No caffeine: Yes during the past year weight has: remained stable Dental Care, Regularly: Yes Physical Activity Frequency: 1-2 Times per Week Seatbelt Use: always Sunscreen Use: Yes Assistive Devices: Cane, Denture - Upper, Glasses, Hearing Aid - Bilateral and Walker Review of Systems Review of Systems: The patient denies chest pain, palpitations, shortness of breath, dyspnea on exertion, cough, lower extremity swelling, sore throat, fevers, chills, sweats, weight change, fatigue, nausea, vomiting, diarrhea , constipation, abdominal pain, pelvic pain, blood in urine or stool, dysuria, urinary frequency or urgency, loss of consciousness, rash, abnormal bruising or bleeding, focal weakness, numbness or tingling in arms or legs, generalized arthralgias or myalgias, back or neck pain, or night sweats. The review of systems is otherwise negative other than for that already noted above, and at least 10 systems have been reviewed. Physical Exam Physical Exam: The patient is awake, alert and oriented 3, well developed and well nourished, normocephalic and atraumatic, lying in bed and in no acute distress. HEENT--PERRL, EOMI, mucous membranes and oropharynx dry. Neck--supple. No JVD. No bruits. Thyroid normal, trachea midline, no adenopath y. Heart--normal S1 and S2. No murmurs, rubs or gallops. Lungs--clear bilaterally, no respiratory distress, no accessory muscle use. Abdomen--normal bowel sounds and soft. Nontender. Nondistended, no hernias or masses, no organomegaly. Extremities--no cyanosis or clubbing. No edema. Dermatologic--normal skin turgor, normal color, no abnormal lymph nodes, no rash. Neurologic--cranial nerves II through XII grossly intact. Rheumatologic--limited exam Psychiatric--normal affect. Results & Data Results & Data ([facility]) Vital Signs (Past 12 Hours) Vital Signs Temp Pulse Resp BP Pulse Ox O2 Del Method 10/28/22 19:17 65 16 145/96 H 94 Room Air 10/28/22 18:08 36.8 C 79 18 149/63 H 96 Room Air 10/28/22 17:57 64 Laboratory Results Laboratory Results WBC 7.02 K/ul (4.8-10.8) 10/28/22 17:52 RBC 4.63 M/uL (4.20-5.40) 10/28/22 17:52 Hgb 15.0 g/dl (12.0-16.0) 10/28/22 17:52 Hct 44.1 % (37.0-47.0) 10/28/22 17:52 MCV 95.2 fL (80.0-100.0) 10/28/22 17:52 MCH 32.4 pg (25.0-34.0) 10/28/22 17:52 MCHC 34.0 g/dL (32.0-36.0) 10/28/22 17:52 RDW Std Deviation 43.6 fL (36.4-46.3) 10/28/22 17:52 RDW Coeff of Diya 12.5 % (11.5-14.5) 10/28/22 17:52 Plt Count 192 K/uL (130-400) 10/28/22 17:52 MPV 10.6 fL (9.4-12.4) 10/28/22 17:52 Immature Gran % (Auto) 0.4 % 10/28/22 17:52 Neut % (Auto) 64.1 % 10/28/22 17:52 Lymph % (Auto) 23.8 % 10/28/22 17:52 [place] % (Auto) 9.8 % 10/28/22 17:52 Eos % (Auto) 1.3 % 10/28/22 17:52 Baso % (Auto) 0.6 % 10/28/22 17:52 Neut # (Auto) 4.50 K/uL (1.40-6.50) 10/28/22 17:52 Lymph # (Auto) 1.67 K/uL (1.2-3.4) 10/28/22 17:52 [place] # (Auto) 0.69 K/uL (0.11-0.59) H 10/28/22 17:52 Eos # (Auto) 0.09 K/uL (0-0.50) 10/28/22 17:52 Baso # (Auto) 0.04 K/uL (0-0.2) 10/28/22 17:52 Immature Gran # (Auto) 0.03 K/uL (0.01-0.20) 10/28/22 17:52 PT 11.1 Seconds (9.0-12.0) 10/28/22 17:52 INR 1.0 (0.9-1.1) 10/28/22 17:52 APTT 27.0 Seconds (21.0-31.0) 10/28/22 17:52 PTT Ratio 1.0 10/28/22 17:52 Sodium 142 mmol/L (136-145) 10/28/22 17:52 Potassium 2.9 mmol/L (3.5-5.1) L 10/28/22 17:52 Chloride 115 mmol/L (98-107) H 10/28/22 17:52 Carbon Dioxide 23 mmol/L (21-32) 10/28/22 17:52 Anion Gap 4 (3-11) 10/28/22 17:52 BUN 14 mg/dl (6-23) 10/28/22 17:52 Creatinine 0.41 mg/dl (0.6-1.2) L 10/28/22 17:52 Est Cr Clr Drug Dosing 93.8 ml/min 10/28/22 17:52 Est GFR ( Amer) 109.2 ml/min 10/28/22 17:52 Est GFR (Non-Af Amer) 94.2 ml/min 10/28/22 17:52 BUN/Creatinine Ratio 34.1 (10-20) H 10/28/22 17:52 Glucose 183 mg/dl (70-99(Fasting)) H 10/28/22 17:52 POC Glucose 151 mg/dl (70-99) H 10/28/22 22:06 Calcium 6.6 mg/dl (8.5-10.1) L 10/28/22 17:52 Total Bilirubin 0.5 mg/dl (0.2-1.0) 10/28/22 17:52 AST 14 U/L (13-39) 10/28/22 17:52 ALT 16 U/L (7-52) 10/28/22 17:52 Alkaline Phosphatase 46 U/L (34-104) 10/28/22 17:52 Total Protein 5.3 gm/dl (6.0-8.3) L 10/28/22 17:52 Albumin 3.3 gm/dl (3.4-5.0) L 10/28/22 17:52 Globulin 2.0 gm/dl (2.5-4.0) L 10/28/22 17:52 Albumin/Globulin Ratio 1.7 (0.9-2) 10/28/22 17:52 Urine Color Yellow 10/28/22 21:25 Urine Appearance Clear (Clear) 10/28/22 21:25 Urine pH 8.0 (4.5-7.5) H 10/28/22 21:25 Ur Specific [place] 1.008 (1.000-1.030) 10/28/22 21:25 Urine Protein Negative (Negative) 10/28/22 21:25 Urine Glucose (UA) Trace (Negative) H 10/28/22 21:25 Urine Ketones Negative (Negative) 10/28/22 21:25 Urine Blood Negative (Negative) 10/28/22 21:25 Urine Nitrite Negative (Negative) 10/28/22 21:25 Urine Bilirubin Negative (Negative) 10/28/22 21:25 Urine Urobilinogen Negative (Negative) 10/28/22 21:25 Ur Leukocyte Esterase 3+ (Negative) H 10/28/22 21:25 Urine WBC (Auto) 10-30 /hpf (0-5) H 10/28/22 21:25 Urine RBC (Auto) 0-4 /hpf (0-4) 10/28/22 21:25 U Hyaline Cast (Auto) 0 /lpf (0-5) 10/28/22 21:25 U Epithel Cells (Auto) >30 /lpf (0-5) H 10/28/22 21:25 Urine Bacteria (Auto) Negative (Negative) 10/28/22 21:25 SARS-CoV-2, RNA, NAAT NEGATIVE (NEGATIVE) 10/28/22 17:52 Blood Type A Positive 10/28/22 20:35 Antibody Screen NEGATIVE 10/28/22 20:35 Impressions Hip/Pelvis X-Ray 10/28/22 17:40 SINGLE VIEW PELVIS; 2 VIEWS RIGHT HIP; 3 VIEWS RIGHT FEMUR CLINICAL HISTORY: Fall. Hip pain. Preoperative examination. FINDINGS: An AP view of the pelvis, AP and frog-leg views of the right hip, with AP, frog-leg, and crosstable lateral views of the right femur are obtained. Correlation is made with pelvic x-ray dated 07/15/2019. The skeletal structures are osteopenic. Bilateral hip arthroplasties are in near anatomic alignment. There is chronic posttraumatic deformity of the left pubic ring. No acute fracture is seen involving the left hip or the bony pelvis. There is a minimally displaced periprosthetic spiral fracture of the right proximal femoral shaft. Fracture lucency extends at least 2 cm below the tip of the arthroplasty stem. Overlying soft tissue edema is noted. The distal right femur is intact. The right knee joint is grossly maintained. Ossification superior to the greater trochanter on the left is unchanged. Advanced atherosclerotic calcification is noted in the femoral arteries. Sclerotic change is seen in the sacroiliac joints. IMPRESSION: 1. Minimally displaced periprosthetic spiral fracture of the right femoral shaft as above. 2. No additional fractures seen involving the left hip or the bony pelvis. Electronically signed by: Jd Garza M.D. 10/28/2022 6:23 PM Chest X-Ray 10/28/22 17:44 SINGLE VIEW CHEST CLINICAL HISTORY: Preoperative examination. Hip fracture. FINDINGS: An AP, portable, supine chest radiograph is compared to study dated 11/26/2019. The heart is enlarged noting atherosclerotic calcification of the thoracic aorta. The pulmonary vasculature is noncongested. Chronic interstitial thickening is similar to previous. The lungs and pleural spaces are clear noting bibasilar scarring/atelectasis. No pneumothorax is seen. The skeletal structures are osteopenic. There are chronic/healed right-sided rib fractures. IMPRESSION: Cardiomegaly with no acute cardiopulmonary abnormality. ACT 112: Negative or not required by law. Electronically signed by: Jd Garza M.D. 10/28/2022 6:[address] 10/28/22 17:46 CT SCAN OF THE BRAIN WITHOUT IV CONTRAST CLINICAL HISTORY: Fall. COMPARISON STUDY: CT of the brain dated 11/26/2019. TECHNIQUE: Unenhanced axial CT scan of the brain is performed from the vertex to the skull base. A dose lowering technique was utilized adhering to the principles of ALARA. CT DOSE: 471.71 mGycm FINDINGS: Brain parenchyma: There is age-related involutional change noting trfy-ld-rotmiqyc subcortical and periventricular microangiopathic disease. There is no hemorrhage, mass effect, or evidence of acute territorial ischemia by CT criteria. A chronic lacunar infarct is seen in the left marrero radiata. Reyes- white matter differentiation is preserved. No extra-axial fluid collection is seen. Ventricles, sulci, cisterns: Prominent secondary to involutional change. Intracranial vasculature: There is atherosclerotic calcification of the cavernous carotid and vertebral artery. Calvarium: The skeletal structures are osteopenic. There is no depressed ca lvarial fracture. Sinuses and mastoids: The visualized paranasal sinuses are clear. The mastoid air cells are well pneumatized. Orbits: The bony orbits are grossly intact. There are bilateral ocular lens implants. IMPRESSION: There is no hemorrhage, mass effect, or evidence of acute territorial ischemia by CT criteria. ACT 112: Negative or not required by law. Electronically signed by: Jd Garza M.D. 10/28/2022 7:16 PM Femur X-Ray 10/28/22 17:55 SINGLE VIEW PELVIS; 2 VIEWS RIGHT HIP; 3 VIEWS RIGHT FEMUR CLINICAL HISTORY: Fall. Hip pain. Preoperative examination. FINDINGS: An AP view of the pelvis, AP and frog-leg views of the right hip, with AP, frog-leg, and crosstable lateral views of the right femur are obtained. Correlation is made with pelvic x-ray dated 07/15/2019. The skeletal structures are osteopenic. Bilateral hip arthroplasties are in near anatomic alignment. There is chronic posttraumatic deformity of the left pubic ring. No acute fracture is seen involving the left hip or the bony pelvis. There is a minimally displaced periprosthetic spiral fracture of the right proximal femoral shaft. Fracture lucency extends at least 2 cm below the tip of the arthroplasty stem. Overlying soft tissue edema is noted. The distal right femur is intact. The right knee joint is grossly maintained. Ossification superior to the greater trochanter on the left is unchanged. Advanced atherosclerotic calcification is noted in the femoral arteries. Sclerotic change is seen in the sacroiliac joints. IMPRESSION: 1. Minimally displaced periprosthetic spiral fracture of the right femoral shaft as above. 2. No additional fractures seen involving the left hip or the bony pelvis. Electronically signed by: Jd Garza M.D. 10/28/2022 6:23 PM Code Status & VTE Plan Code Status Full code VTE Prophylaxis Plan VTE Prophylaxis will be ordered: Yes PG Care Time/CCT Total # of Minutes Spent Total Time Spent with Patient: Total time spent is greater than 50% in coordination of care (as documented) at patient's floor/unit and/or counseling patient: Coding Level of Care Code 62981 INT INP/OBS CARE 3/75MIN Diagnoses Periprosthetic fracture around internal prosthetic right hip joint, initial encounter M97.01XA Sensorineural hearing loss (SNHL) of both ears H90.3 Osteoporosis M81.0 Atrial fibrillation I48.0 Atrial fibrillation type: paroxysmal CHF (congestive heart failure) I50.9 Lumbar stenosis with neurogenic claudication M48.062 Hypertension I10 Hypertension type: essential hypertension Hyperlipidemia E78.5 Vitamin D deficiency E55.9 Stress incontinence in female N39.3 Peripheral neuropathy G62.9 Diabetes mellitus type II, controlled E11.9 Depression F32.9 Anticoagulant long-term use Z79.01 Diabetes mellitus, type II E11.9 (4) Atrial fibrillation Atrial fibrillation type: paroxysmal Qualified Code(s): I48.0 - Paroxysmal a trial fibrillation (7) Hypertension Hypertension type: essential hypertension Qualified Code(s): I10 - Essential (primary) hypertension
[2022-10-28] MEDS: NSS + 20MEQ KCL 20 MEQ/1,000 ML BAG IV SCH (20:47)
[2022-10-28 21:51] LABS: Appearance Urine Clear (Clear); Bacteria Urine Automated Negative (Negative); Bilirubin Urine Negative (Negative); Blood Urine Negative (Negative); Cast Urine Automated 0 /lpf (0-5); Color Urine Yellow; Epithelial Cell Urine Auto >30 /lpf (0-5); Glucose Urine UA Trace (Negative); Ketones Urine Negative (Negative); Leukocyte Esterase Urine 3+ (Negative); Nitrite Urine Negative (Negative); Protein Urine Negative (Negative); RBC Urine Automated 0-4 /hpf (0-4); Specific Gravity Urine 1.008 (1.000-1.030); Urobilinogen Urine Negative (Negative)
[2022-10-28] MEDS ORDERED: bisacodyL 10 MG SUPP PR PRN (21:58)
[2022-10-28] MEDS ORDERED: GLUCOSE 40% GEL 15 GM TUBE PO PRN (21:58)
[2022-10-28] MEDS ORDERED: MAGNESIUM HYDROXIDE SUSP 30 ML UDC PO PRN (21:58)
[2022-10-28] MEDS ORDERED: NALOXONE HCL 0.4 MG/1 ML VIAL/CARP IV PRN (21:58)
[2022-10-28] MEDS ORDERED: ONDANSETRON INJ 2 MG/ML 2 ML VIAL IV PRN (21:58)
[2022-10-28] MEDS ORDERED: DEXTROSE 50% 50 ML SYRINGE IV PRN (21:58)
[2022-10-28] MEDS ORDERED: GLUCOSE 10 TAB/TUBE PO PRN (21:58)
[2022-10-28] MEDS ORDERED: GLUCAGON FOR INJ 1 MG VIAL SQ PRN (21:58)
[2022-10-28] MEDS ORDERED: HYDROCODONE/ACETAMOPHEN 5/325MG TAB PO PRN (21:58)
[2022-10-28] MEDS ORDERED: ACETAMINOPHEN 325 MG TAB PO PRN (21:58)
[2022-10-28] MEDS ORDERED: CARBOHYDRATES FOR HYPOGLYCEMIA PO PRN (21:58)
[2022-10-28] MEDS: DOCUSATE SODIUM/SENNA 50/8.6MG TAB PO SCH (22:32)
[2022-10-28] MEDS: MoRPHine SULFATE 4 MG/ML 1 ML CARP\\VIAL IV PRN (22:33)
[2022-10-28] MEDS: INSULIN ASPART PER UNIT SC SCH (22:34)
[2022-10-29] MEDS: MoRPHine SULFATE 4 MG/ML 1 ML CARP\\VIAL IV PRN ×2 (01:28→09:30)
[2022-10-29] MEDS ORDERED: TRANEXAMIC ACID / 0.7% NACL 1,000 MG/100 ML BAG IV SCH ×2 (06:00→06:30)
[2022-10-29 07:10] LABS: Basophils # (auto) 0.03 K/uL (0-0.2); Basophils % (auto) 0.3 %; Eosinophils # (auto) 0.13 K/uL (0-0.50); Eosinophils % (auto) 1.4 %; Hemoglobin 13.2 g/dl (12.0-16.0); Immature Granulocytes # (auto) 0.04 K/uL (0.01-0.20); Immature Granulocytes % (auto) 0.4 %; Lymphocytes # (auto) 1.99 K/uL (1.2-3.4); Lymphocytes % (auto) 21.1 %; Mean Corpuscular Hgb Conc 33.8 g/dL (32.0-36.0); Mean Corpuscular Volume 94.4 fL (80.0-100.0); Mean Platelet Volume 10.5 fL (9.4-12.4); Monocytes # (auto) 1.09 K/uL (0.11-0.59); Monocytes % (auto) 11.5 %; Neutrophils # (auto) 6.17 K/uL (1.40-6.50); Neutrophils % (auto) 65.3 %; Platelet Count 162 K/uL (130-400); RDW Coefficient of Variation 12.7 % (11.5-14.5); RDW Standard Deviation 43.8 fL (36.4-46.3); Red Blood Count 4.13 M/uL (4.20-5.40); White Blood Count 9.45 K/ul (4.8-10.8)
--- NOTE | 2022-10-29 07:19 | Orthopedic Consultation ---
Date of Service October 29, 2022 Assessment & Plan (1) Periprosthetic fracture around internal prosthetic right hip joint, initial encounter: Discussed treatment plans with the patient. I described treatment options including conservative versus operative invention. As she is strongly desiring a surgical treatment of this which is reasonable. She does live by herself and gets around with use of a walker or cane. In light of this we will proceed with open reduction internal fixation of right periprosthetic femur fracture. I will hold her Eliquis. DVT prophylax include teds and SCDs and restart the Eliquis postoperatively. Will hopefully do this later this afternoon if possible if she is medically optimized. I will keep her n.p.o. for now. Strict bedrest. Any orthopedic questions can direct me [phone] History of Present Illness Reason for Consultation: . Right periprosthetic femur fracture Requesting Physician: . Attending Physician: Shashi Perez MD . 87-year-old female with multiple medical comorbidities including atrial fibrillation on Eliquis, hypertension, elevated clot cholesterol, neuropathy, history of a CVA with right-sided weakness, spinal stenosis, carotid stenosis and diabetes who sustained a fall at her home yesterday. She had cute onset of pain. She brought the emergency room x-rays of a right periprosthetic femur fracture. She been admitted to the medicine service and were consulted for treatment. No pre-existing hip pain. She does have a history of bipolar hip arthroplasty about 4 years ago done for fracture. Allergies Allergy/AdvReac Type Severity Reaction Status Date / Time amoxicillin Allergy Intermediate RASH Verified 10/28/22 20:59 Penicillins Allergy Intermediate RASH Verified 10/28/22 20:59 pravastatin Allergy Intermediate MYALGIA Verified 10/28/22 20:59 simvastatin Allergy Intermediate MYALGIA Verified 10/28/22 20:59 Home Medications Medication Instructions Recorded Confirmed Type cyanocobalamin (vitamin B-12) 1,000 mcg PO QAM 01/27/19 10/28/22 History 1,000 mcg tablet (Vitamin B-12) sennosides 8.6 mg-docusate sodium 1 tab PO BID 01/27/19 10/28/22 History 50 mg tablet (Senna-S) cholecalciferol (vitamin D3) 25 1,000 units PO BID 03/02/19 10/28/22 History mcg (1,000 unit) capsule (Vitamin D3) amlodipine 10 mg tablet 10 mg PO DAILY #90 tabs 02/06/22 10/28/22 Rx mirabegron 25 mg tablet,extended 25 mg PO DAILY #90 tabs 03/13/22 10/28/22 Rx release 24 hr (Myrbetriq) apixaban 2.5 mg tablet (Eliquis) 2.5 mg PO BID #180 tabs 03/19/22 10/28/22 Rx atorvastatin 20 mg tablet 20 mg PO HS #90 tabs 03/19/22 10/28/22 Rx digoxin 125 mcg (0.125 mg) tablet 125 mcg PO QAM #90 tabs 03/19/22 10/28/22 Rx (Digox) duloxetine 20 mg capsule,delayed 20 mg PO QAM #90 caps 03/19/22 10/28/22 Rx release ezetimibe 10 mg tablet 10 mg PO QAM #90 tabs 03/19/22 10/28/22 Rx glipizide 2.5 mg tablet, extended 2.5 mg PO DAILY #90 tabs 03/27/22 10/28/22 Rx release 24 hr pregabalin 75 mg capsule (Lyrica) 75 mg PO HS #90 caps 08/24/22 10/28/22 Rx metoprolol succinate 100 mg 100 mg PO BID #180 tabs 09/26/22 10/28/22 Rx tablet,extended release 24 hr aspirin 81 mg tablet,delayed 81 mg PO DAILY 10/28/22 10/28/22 History release Past Med/Surg History Medical History Acute ischemic stroke Allergic rhinitis due to pollen Atrial fibrillation Bilateral carotid artery stenosis CHF (congestive heart failure) (03/19/14) Cystocele, midline Depression Diabetes mellitus type II, controlled Disc degeneration, lumbar Dysphasia following cerebrovascular accident (CVA) Expressive aphasia Hemorrhoids History of CVA with residual deficit Hypertension Lumbar radiculopathy Lumbar stenosis with neurogenic claudication (03/16/14) Microscopic hematuria Neurologic gait dysfunction On continuous oral anticoagulation Osteoporosis Overactive bladder Peripheral neuropathy Polycythemia Primary localized osteoarthrosis of the hip Stress incontinence in female Vitamin D deficiency Surgical History S/P appendectomy S/P cataract surgery S/P lumbar laminectomy S/P total hip arthroplasty Family History Grandfather Coronary heart disease Mother Coronary heart disease Sister Diabetes Father Coronary heart disease Other Family history non-contributory Denies family history of Ovarian cancer Prostate cancer Myocardial infarction Breast cancer Colorectal cancer Social History Smoking Status: Never smoker Second Hand Exposure: No; Do You Dip or Chew Tobacco: No; Tobacco Cessation Education Requested by Patient: No Hx Alcohol Use: No Hx Substance Use: No Preferred Language: Spanish Communication Ability: Effective Visual Impairment: No Limitations Hearing Ability: Use of Hearing Aid Dietetics Teacher Required: No Beliefs That Will Affect Care: None marital status: Current Living Situation: Alone Current Living Situation Comment: her lives in [facility], she has a life alert that she wears at home current occupational status: retired 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 Physical Exam . Physical examination reveals a pleasant elderly female. She is lying in bed looks pretty comfortable in general. She is awake, alert and oriented. Examination of the right leg reveals a well-healed incision over this lateral lateral side of her hip. She does have a patch of psoriasis in the area of the incision. She is tender to palpate anywhere around her thigh. There is no obvious deformity. Minimal swelling. She does have some weakness in this right leg but can dorsiflex and plantarflex her foot. Pain with any type of hip motion. No knee effusion. She is neurologically intact. Results & Data Results & Data Laboratory Results . Diagnostic Findings . X-rays reveal a cemented bipolar hip arthroplasty on the right side with a periprosthetic femur fracture repair minimally displaced. PG Care Time/CCT Total # of Minutes Spent Total Time Spent with Patient: Total time spent is greater than 50% in coordination of care (as documented) at patient's floor/unit and/or counseling patient: Coding Level of Care Code INP/OBS CONSULT LVL 5, 80 MIN Diagnoses Periprosthetic fracture around internal prosthetic right hip joint, initial encounter M97.01XA
[2022-10-29 07:37] LABS: INR 1.1 (0.9-1.1); Partial Thromboplastin Time 28.5 Seconds (21.0-31.0); Prothrombin Time 11.4 Seconds (9.0-12.0)
[2022-10-29 07:38] LABS: BUN Creatinine Ratio 19.2 (10-20); Calcium 8.9 mg/dl (8.5-10.1); Creatinine Clr Calc Pharmacy 69.1 ml/min; Est GFR (Non-African American) 87.1 ml/min; Magnesium 1.6 mg/dl (1.7-2.4); Phosphorus 3.2 mg/dl (2.5-4.9)
[2022-10-29 08:07] LABS: Estimated Average Glucose 194 mg/dl; Hemoglobin A1C 8.4 % (4.5-5.6)
[2022-10-29] MEDS: MAGNESIUM SULFATE / D5W 1 GM/100 ML BAG IV SCH ×2 (09:16→11:16)
--- NOTE | 2022-10-29 09:22 | Electrocardiogram Report ---
Test Reason : Blood Pressure : / mmHG Vent. Rate : 063 BPM Atrial Rate : 060 BPM P-R Int : 000 ms QRS Dur : 070 ms QT Int : 416 ms P-R-T Axes : 000 -21 052 degrees QTc Int : 425 ms Poor data quality, interpretation may be adversely affected Normal sinus rhythm Nonspecific ST abnormality Abnormal ECG Confirmed by Preston Baker ([id number]) on 10/29/2022 9:22:44 AM Referred By: REFERRED SELF Confirmed By:Dandy Baker
[2022-10-29] MEDS: NSS + 20MEQ KCL 20 MEQ/1,000 ML BAG IV SCH (09:40)
[2022-10-29] MEDS: INSULIN ASPART PER UNIT SC SCH ×4 (09:47→20:19)
--- NOTE | 2022-10-29 10:44 | Hospitalist Progress Note ---
Date of Service October 29, 2022 Assessment & Plan (1) Periprosthetic fracture around internal prosthetic right hip joint, initial encounter: Plan: Closed right hip periprosthetic fracture- Secondary to mechanical fall Medically optimized for surgery at this time Orthopedic surgery consultation appreciated-plan for surgical fixation today Continue pain management with acetaminophen 650 mg p.o. every 6 hours as needed for mild pain or fever, [place] 5/325, 1 tablet every 6 hours as needed for moderate pain, morphine sulfate 2 mg IV every 4 hours as needed for severe pain Holding apixaban and aspirin and restart when okay with orthopedic surgery Will need PT/OT consultations and likely rehab placement Bowel regimen We will monitor on telemetry for 24 hours postoperatively to assess for atrial fibrillation and then can be downgraded to medical/surgical floor after that Follow CBC and BMP in the morning (2) Osteoporosis: Plan: Osteoporotic fracture with fall from standing height Check vitamin D level in the morning Continue vitamin D supplementation from home Follow-up with PCP for treatment for osteoporosis after recovery (3) Atrial fibrillation: Plan: With history of paroxysmal atrial fibrillation-is in sinus rhythm here with first-degree AV block, PACs Also has a history of nonsustained ventricular tachycardia during acute illness on previous hospitalizations many years ago -Restart home digoxin, metoprolol succinate Hold apixaban and aspirin preoperatively -Continue telemetry monitoring for 24 hours postoperatively -Keep electrolytes replete-give 2 g of IV magnesium sulfate today Follow BMP, magnesium in the morning (4) CHF (congestive heart failure): Plan: Most recent echocardiogram in our system is 2016 and shows mild LVH, LVEF greater than 70%, grade 1 diastolic dysfunction No evidence of volume overload Okay to continue IV fluids in the perioperative setting Monitor I's and O's, daily weights (5) Lumbar stenosis with neurogenic claudication: Plan: Noted (6) Hypertension: Plan: Blood pressures are normal Hold home amlodipine for now Continue home metoprolol specially with history of paroxysmal atrial fibrillation for rate control Monitor blood pressures (7) Hyperlipidemia: Plan: -Restart atorvastatin 20 mg at bedtime and Zetia (8) Vitamin D deficiency: Plan: Check level in the morning Continue home supplement (9) Stress incontinence in female: Plan: Hold home mirabegron 25 mg extended release daily while with Villagran catheter in place and until able to void (10) Peripheral neuropathy: Plan: Restart home duloxetine and Lyrica (11) Depression: Plan: Continue duloxetine (12) Anticoagulant long-term use: Plan: Holding Eliquis as above for surgery (13) Diabetes mellitus, type II: Plan: Hemoglobin A1c 8.4% Hold glipizide Place on Accu-Cheks before meals and at bedtime with NovoLog SSI May need to add on Lantus if has hyperglycemia (14) Sensorineural hearing loss (SNHL) of both ears: Plan: Noted (15) B12 deficiency: Plan: Restart home B12 supplement Not anemic Plan DVT prophylaxis-SCDs for now, restart Eliquis when okay with orthopedic surgery Disposition-we will need PT/OT consults postoperatively and will likely need rehab placement. Case management making referrals for rehab Discussed care with daughter at the bedside. Admission and Anticipated Discharge Date Admission Date: October 28, 2022 Subjective Having pain in the right hip. Denies chest pain or shortness of breath, no nausea or lightheadedness, no abdominal pains. Has chronic pain in the feet but otherwise no other injuries. Telemetry with sinus rhythm, PACs, first-degree block, rates in the 60s I discussed her care with orthopedic surgery and I discussed her care with her daughter at the bedside. Physical Exam Constitutional: well developed; no acute distress Eyes: + anicteric sclerae Results & Data Results & Data ([facility]) Vital Signs (Past 12 Hours) Vital Signs Temp Pulse Pulse Resp BP Pulse Ox Pulse Ox 10/29/22 07:19 36.6 C 63 18 143/55 H 98 10/29/22 04:12 36.8 C 60 18 144/68 H 96 10/29/22 03:00 98 10/28/22 23:50 96 10/28/22 23:51 63 10/28/22 23:06 36.6 C 59 L 17 134/55 L 92 O2 Del Method O2 Del Method O2 Flow Rate O2 Flow Rate 10/29/22 07:19 Nasal Cannula 2 10/29/22 04:12 Nasal Cannula 2 10/29/22 03:00 Nasal Cannula 2 10/28/22 23:50 Nasal Cannula 2 10/28/22 23:51 10/28/22 23:06 Room Air Laboratory Results CBC and BMP and magnesium level reviewed PG Care Time/CCT Total # of Minutes Spent Total Time Spent with Patient: Total time spent is greater than 50% in coordination of care (as documented) at patient's floor/unit and/or counseling patient: Coding Level of Care Code 54694 SUB INP/OBS CARE 50MIN Diagnoses Periprosthetic fracture around internal prosthetic right hip joint, initial enco unter M97.01XA Osteoporosis M81.0 Atrial fibrillation I48.0 Atrial fibrillation type: paroxysmal CHF (congestive heart failure) I50.9 Lumbar stenosis with neurogenic claudication M48.062 Hypertension I10 Hypertension type: essential hypertension Hyperlipidemia E78.5 Vitamin D deficiency E55.9 Stress incontinence in female N39.3 Peripheral neuropathy G62.9 Depression F32.9 Anticoagulant long-term use Z79.01 Diabetes mellitus, type II E11.9 Sensorineural hearing loss (SNHL) of both ears H90.3 B12 deficiency E53.8 (3) Atrial fibrillation Atrial fibrillation type: paroxysmal Qualified Code(s): I48.0 - Paroxysmal atrial fibrillation (6) Hypertension Hypertension type: essential hypertension Qualified Code(s): I10 - Essential (primary) hypertension
--- NOTE | 2022-10-29 12:11 | Anesthesiology Consultation ---
Date of Service October 29, 2022 Assessment & Plan (1) Encounter for pre-operative examination: Chart Review Chart Review: Acceptable Risk for Surgery and Patient NOT seen in Pre Admission Testing Consults Requested none History Surgery Operation Date: 10/29/22 11:50 Proposed Procedures p Right Open Reduction Internal Fixation Periprosthetic Hip Jerry Emanuel MD Height/Weight Height: 5 ft 6 in Weight: 55.3 kg Allergies Allergy/AdvReac Type Severity Reaction Status Date / Time amoxicillin Allergy Intermediate RASH Verified 10/28/22 20:59 Penicillins Allergy Intermediate RASH Verified 10/28/22 20:59 pravastatin Allergy Intermediate MYALGIA Verified 10/28/22 20:59 simvastatin Allergy Intermediate MYALGIA Verified 10/28/22 20:59 Medications Home Medications Medication Instructions Recorded Confirmed Last Taken cyanocobalamin (vitamin B-12) 1,000 mcg PO QAM 01/27/19 10/28/22 11/26/19 1,000 mcg tablet (Vitamin B-12) sennosides 8.6 mg-docusate sodium 1 tab PO BID 01/27/19 10/28/22 11/26/19 50 mg tablet (Senna-S) cholecalciferol (vitamin D3) 25 1,000 units PO BID 03/02/19 10/28/22 11/26/19 mcg (1,000 unit) capsule (Vitamin D3) amlodipine 10 mg tablet 10 mg PO DAILY #90 tabs 02/06/22 10/28/22 Unknown mirabegron 25 mg tablet,extended 25 mg PO DAILY #90 tabs 03/13/22 10/28/22 Unkn own release 24 hr (Myrbetriq) apixaban 2.5 mg tablet (Eliquis) 2.5 mg PO BID #180 tabs 03/19/22 10/28/22 Unknown atorvastatin 20 mg tablet 20 mg PO HS #90 tabs 03/19/22 10/28/22 Unknown digoxin 125 mcg (0.125 mg) tablet 125 mcg PO QAM #90 tabs 03/19/22 10/28/22 Unknown (Digox) duloxetine 20 mg capsule,delayed 20 mg PO QAM #90 caps 03/19/22 10/28/22 Unknown release ezetimibe 10 mg tablet 10 mg PO QAM #90 tabs 03/19/22 10/28/22 Unknown glipizide 2.5 mg tablet, extended 2.5 mg PO DAILY #90 tabs 03/27/22 10/28/22 Unknown release 24 hr pregabalin 75 mg capsule (Lyrica) 75 mg PO HS #90 caps 08/24/22 10/28/22 Unknown metoprolol succinate 100 mg 100 mg PO BID #180 tabs 09/26/22 10/28/22 Unknown tablet,extended release 24 hr aspirin 81 mg tablet,delayed 81 mg PO DAILY 10/28/22 10/28/22 Unknown release Active Medications Generic Name Dose Route Start Last Admin Trade Name Freq PRN Reason Stop Dose Admin Hydrocodone Bitart/Acetaminophen 1 tab 10/28/22 21:58 10/28/22 22:32 Hydrocodone/Acetamophen 5/325mg Tab PO 11/11/22 21:57 1 tab Q4H PRN Administration MODERATE Pain (4,5,6) & Pre PT Potassium Chloride/Sodium Chloride 20 meq in 1,000 mls @ 80 mls/hr 10/28/22 20:45 10/29/22 09:40 Normal Saline W/20 Meq Kcl IV 11/27/22 20:44 80 mls/hr .[id number] QUANG Administration Protocol Insulin Aspart 0 units 10/28/22 21:58 10/29/22 09:47 Insulin Aspart Per Unit SC 11/27/22 21:57 1 units ACHS QUANG Administration Morphine Sulfate 2 mg 10/28/22 21:58 10/29/22 09:30 Morphine Sulfate 4 Mg/Ml 1 Ml Carp\Vial IV 11/11/22 21:57 2 mg Q3H PRN Administration Severe Pain Senna/Docusate Sodium 2 tab 10/28/22 21:58 10/28/22 22:32 Docusate Sodium/Senna 50/8.6mg Tab PO 11/27/22 21:57 2 tab HS QUANG Administration Past Medical History Medical History Acute ischemic stroke Allergic rhinitis due to pollen Atrial fibrillation Bilateral carotid artery stenosis CHF (congestive heart failure) (03/19/14) Cystocele, midline Depression Diabetes mellitus type II, controlled Disc degeneration, lumbar Dysphasia following cerebrovascular accident (CVA) Expressive aphasia Hemorrhoids History of CVA with residual deficit Hypertension Lumbar radiculopathy Lumbar stenosis with neurogenic claudication (03/16/14) Microscopic hematuria Neurologic gait dysfunction On continuous oral anticoagulation Osteoporosis Overactive bladder Peripheral neuropathy Polycythemia Primary localized osteoarthrosis of the hip Stress incontinence in female Vitamin D deficiency Past Family History Family History Grandfather Coronary heart disease Mother Coronary heart disease Sister Diabetes Father Coronary heart disease Other Family history non-contributory Denies family history of Ovarian cancer Prostate cancer Myocardial infarction Breast cancer Colorectal cancer Past Surgical History Surgical History S/P appendectomy S/P cataract surgery S/P lumbar laminectomy S/P total hip arthroplasty Social History Smoking Status: Never smoker Do You Dip or Chew Tobacco: No Hx Alcohol Use: No Hx Substance Use: No Physical Exam Vital Signs Last Vital Signs Temp 36.7 C 10/29/22 11:04 Pulse 59 L 10/29/22 11:04 Resp 18 10/29/22 11:04 BP 129/64 10/29/22 11:04 Pulse Ox 94 10/29/22 11:04 O2 Del Method Room Air 10/29/22 11:04 O2 Flow Rate 2 10/29/22 07:19 Testing Laboratory Results 10/29/22 06:42 10/29/22 06:42 PT 11.4 Seconds (9.0-12.0) 10/29/22 06:42 INR 1.1 (0.9-1.1) 10/29/22 06:42 APTT 28.5 Seconds (21.0-31.0) 10/29/22 06:42 Hemoglobin A1c 8.4 % (4.5-5.6) H 10/28/22 17:52 Urine Color Yellow 10/28/22 21:25 Urine Appearance Clear (Clear) 10/28/22 21:25 Urine pH 8.0 (4.5-7.5) H 10/28/22 21:25 Ur Specific Mertens 1.008 (1.000-1.030) 10/28/22 21:25 Urine Protein Negative (Negative) 10/28/22 21:25 Urine Glucose (UA) Trace (Negative) H 10/28/22 21:25 Urine Ketones Negative (Negative) 10/28/22 21:25 Urine Nitrite Negative (Negative) 10/28/22 21:25 Ur Leukocyte Esterase 3+ (Negative) H 10/28/22 21:25 Urine WBC (Auto) 10-30 /hpf (0-5) H 10/28/22 21:25 Urine RBC (Auto) 0-4 /hpf (0-4) 10/28/22 21:25 U Hyaline Cast (Auto) 0 /lpf (0-5) 10/28/22 21:25 U Epithel Cells (Auto) >30 /lpf (0-5) H 10/28/22 21:25 Urine Bacteria (Auto) Negative (Negative) 10/28/22 21:25 Blood Type A Positive 10/28/22 20:35 Antibody Screen NEGATIVE 10/28/22 20:35 10/28/22 21:25 Urine Culture - Preliminary Urine,Indwelling Cath No growth - Less than 1,000 colonies/mL, Final report to follow. 10/29/22 10/29/22 11:59 07:22 POC Glucose 142 H 179 H Electrocardiogram Date: 10/28/22 DICTATED BY:Preston Baker MD Test Reason : Blood Pressure : / mmHG Vent. Rate : 063 BPM Atrial Rate : 060 BPM P-R Int : 000 ms QRS Dur : 070 ms QT Int : 416 ms P-R-T Axes : 000 -21 052 degrees QTc Int : 425 ms Poor data quality, interpretation may be adversely affected Normal sinus rhythm Nonspecific ST abnormality Abnormal ECG Confirmed by Preston Baker ([id number]) on 10/29/2022 9:22:44 AM Chest X-Ray Date: 10/28/22 SINGLE VIEW CHEST CLINICAL HISTORY: Preoperative examination. Hip fracture. FINDINGS: An AP, portable, supine chest radiograph is compared to study dated 11/26/2019. The heart is enlarged noting atherosclerotic calcification of the thoracic aorta. The pulmonary vasculature is noncongested. Chronic interstitial thickening is similar to previous. The lungs and pleural spaces are clear noting bibasilar scarring/atelectasis. No pneumothorax is seen. The skeletal structures are osteopenic. There are chronic/healed right-sided rib fractures. IMPRESSION: Cardiomegaly with no acute cardiopulmonary abnormality. Other Testing Carotid dopplers 11/20/21: 50-69% stenosis in the ROSY less than 50% stenosis in the LICA
[2022-10-29] MEDS ORDERED: ROCURONIUM BROMIDE 10 MG/ML 5 ML VIAL IV ONE (12:32)
[2022-10-29] MEDS ORDERED: ONDANSETRON INJ 2 MG/ML 2 ML VIAL IV PRN (12:32)
[2022-10-29] MEDS ORDERED: ONDANSETRON INJ 2 MG/ML 2 ML VIAL ONE (12:32)
[2022-10-29] MEDS ORDERED: PROPOFOL IV EMULSION 10 MG/ML 20 ML VIAL IV ONE (12:32)
[2022-10-29] MEDS ORDERED: LIDOCAINE 2% MPF LOCAL 5 ML VIAL INFIL ONE (12:32)
[2022-10-29] MEDS ORDERED: fentaNYL citrate 100 MCG/2 ML VIAL ONE ×2 (12:32→14:11)
[2022-10-29] MEDS ORDERED: DEXAMETHASONE SOD INJ 4 MG/ML VIAL ONE (12:32)
[2022-10-29] MEDS ORDERED: ePHEDrine sulfate 50 MG/ML AMP IV PRN (12:32)
[2022-10-29] MEDS ORDERED: ATROPINE SULFATE 0.1 MG/ML 10ML SYR IV PRN (12:32)
[2022-10-29] MEDS ORDERED: fentaNYL citrate 100 MCG/2 ML VIAL IV PRN (12:32)
[2022-10-29] MEDS ORDERED: BUPIVACAINE/EPINEPHRINE 0.5% MPF 1:200,000 30 ML VIAL ONE (12:53)
[2022-10-29] MEDS ORDERED: ALBUMIN HUMAN 5% 12.5 GM/250 ML VIAL IV ONE (12:54)
[2022-10-29] MEDS ORDERED: FAMOTIDINE/PF 20 MG/2 ML VIAL IV ONE (12:54)
[2022-10-29] MEDS ORDERED: ceFAZolin 2000MG 2,000 MG/15 ML SYR IV ONE (13:03)
[2022-10-29] MEDS ORDERED: ceFAZolin 2,000 MG/15 ML IV PUSH IV ONE (13:05)
[2022-10-29] MEDS ORDERED: TRANEXAMIC ACID / 0.7% NACL 1000MG/100ML BAG IV ONE (13:48)
[2022-10-29] MEDS ORDERED: PHENYLEPHRINE HCL 10 MG/ML VIAL ONE (14:22)
[2022-10-29] MEDS ORDERED: ESMOLOL HCL INJ 10 MG/ML 10ML VIAL IV ONE (14:32)
[2022-10-29] MEDS ORDERED: SUGAMMADEX SODIUM 200 MG/2 ML VIAL IV ONE (15:32)
--- NOTE | 2022-10-29 16:00 | Operative Report ---
PG Post Operative Report Pre & Post Diagnosis Operation Date: 10/29/22 11:50 Pre-Op Diagnosis: Periprosthetic fracture around internal prosthetic right hip joint Post-Op Diagnosis: Periprosthetic fracture around internal prosthetic right hip joint I identified the patient and participated in the time-out.: Yes Procedure Operation Date: 10/29/22 11:50 Actual Procedures p Right Open Reduction Internal Fixation Right Hip Fracutre(Right) - El Emanuel MD Surgeon El Emanuel MD Manager Strategic Sourcing Daniel Torres PA-C Estimated Blood Loss 200 Findings Consistent with Post-Op Diagnosis Right relatively nondisplaced periprosthetic femur fracture Fluids 500 cc normal saline and 2 and 50 cc of colloid Specimens None Anesthesia Type General Complications none Disposition Accompanied Patient To Recovery: No Indications Patient is an 87-year-old female who is about 3-1/2 to 4 years out from a right cemented bipolar hip arthroplasty for fracture. She lives alone and fell yesterday. She had cute onset of pain and discomfort unable to ambulate. She was brought to emergency room x-rays of the right periprosthetic femur fracture. Patient was admitted by the hospitalist service, medically optimized indicated for surgical fixation/stabilization. Description of Procedure Operative implants consist of: 1. Synthes 4.5 mm/14 hole curved stainless steel locking plate. 2. 4.5 fully threaded cortical screws x3. 3. 5.0 fully threaded cortical locking screws x2. 4. 6.5 fully threaded cancellous screw x1. 5. 4.5 mm threaded cerclage positioning pin x4. 6. 1.7 mm stainless steel Synthes cable x6. The patient was taken the operating, identified, placed on the operating table supine position architectures were properly padded. IV antibiotics tried by anesthesia team. General anesthetic was implemented as this patient's been on Eliquis. A bump was placed underneath the right hip. The right hip and leg were then scrubbed with Hibiclens, prepped with ChloraPrep, and draped in the usual sterile fashion. I a direct lateral approach to the proximal femur was then performed through a linear incision using the distal aspect of the previous hip arthroplasty incision extending it distally towards the knee. I did have to go through a patch of psoriasis. Sharp dissection scalp through subcutaneous tissue down the IT band. The IT band was incised longitudinally. The vastus lateralis was retracted anteriorly. Several large video game repair technician vessels were encountered and cauterized. I did inject locally with a total of 60 cc of half percent Marcaine with epinephrine in order to limit bleeding and assist in postoperative pain control. We try to minimize stripping. The fracture was then anatomically reduced and then I placed 2 Synthes 1.7 mm stainless steel cables around the fracture to provisionally hold it up. I then contoured a 14 hole locking plate to the lateral aspect of the femur. It was fixed and distally with three 4.5 fully threaded cortical screws and proximally with a single from 6.5 fully threaded cancellous screw. I then placed 2 additional locking screws distally and placed 4 cables proximally through the positioning pins were placed in the screw holes. Despite excellent fixation. All hardware was appropriately positioned. Irrigated the wound extensively. Some final x-rays were obtained. I then closed the IT band with a #1 Vicryl suture in a running fashion. Subcutaneous tissues then closed with 2-0 Dexon suture in buried erupted fashion skin was closed skin kalin. The leg was then cleaned and dried and sterile dressing was Xeroform, 4 x 4's, ABD pad, and a Tegaderm dressing were applied. The patient then brought out of general incision transferred to the recovery room in stable condition. The patient tolerated the procedure well and there were no complications. The Melissa physician assistant professor of physics, was present for the entire procedure. His assistance was required for proper patient positioning, prepping and draping, surgical exposure, retraction, placement of the hardware, perform the technical aspects of the procedure, closure of the wound, placement of sterile bandage. I attest to the content of the Intraoperative Record and any orders documented therein. Any exceptions are noted below.
--- NOTE | 2022-10-29 16:05 | Fluoroscopy Report ---
FL hip RT 2-3V CLINICAL HISTORY: RT ORIF TECHNIQUE: 5 views were obtained with the C-arm in the OR with the above procedure. Total fluoroscopy time was 22.0 seconds. Radiation dose was 2.3 mGy. Comparison: Comparison is made to femur radiograph 10/28/2022 FINDINGS/IMPRESSION: Intraoperative images were obtained of right hip open reduction internal fixatio n with plate and cable placement. Please correlate with intraoperative fluoroscopy and operative report. ACT 112: Negative or not required by law. Electronically signed by: James Fontenot M.D. 10/29/2022 4:04 PM
--- NOTE | 2022-10-29 16:35 | Anesthesiology Progress Note ---
Date of Service October 29, 2022 Anesthesia Post Procedure Vital Signs Vital Signs: Temp Pulse Pulse Pulse Resp BP BP 10/29/22 16:25 77 20 126/58 L 10/29/22 16:15 79 14 130/97 10/29/22 16:05 78 15 144/63 H 10/29/22 15:59 36.3 C L 77 13 159/51 H 10/29/22 15:39 10/29/22 11:04 36.7 C 59 L 18 10/29/22 07:19 36.6 C 63 18 10/29/22 04:12 36.8 C 60 18 10/29/22 03:00 10/28/22 23:50 10/28/22 23:51 63 10/28/22 23:06 36.6 C 59 L 17 10/28/22 22:37 36.7 C 66 15 10/28/22 19:17 65 16 145/96 H 10/28/22 18:08 36.8 C 79 18 149/63 H 10/28/22 17:57 64 BP Pulse Ox Pulse Ox O2 Del Method O2 Del Method O2 Flow Rate O2 Flow Rate 10/29/22 16:25 95 Room Air 10/29/22 16:15 95 Room Air 10/29/22 16:05 96 Oxymask 10 10/29/22 15:59 95 Oxymask 10 10/29/22 15:39 Nasal Cannula 10/29/22 11:04 129/64 94 Room Air 10/29/22 07:19 143/55 H 98 Nasal Cannula 2 10/29/22 04:12 144/68 H 96 Nasal Cannula 2 10/29/22 03:00 98 Nasal Cannula 2 10/28/22 23:50 96 Nasal Cannula 2 10/28/22 23:51 10/28/22 23:06 134/55 L 92 Room Air 10/28/22 22:37 149/68 H 94 Room Air 10/28/22 19:17 94 Room Air 10/28/22 18:08 96 Room Air 10/28/22 17:57 Pain Intensity Right Leg: Pain Intensity: 0 Transfer of Care Handoff Completed per policy Notes Mental Status: alert / awake / arousable Patient Amnestic to Procedure: Yes Nausea / Vomiting: adequately controlled Pain: adequately controlled Airway Patency, RR, SpO2: stable & adequate BP & HR: stable & adequate Hydration State: stable & adequate Anesthetic Complications: no major complications apparent and Pt Satisfied with anesthetic care
[2022-10-29] MEDS ORDERED: COUGH DROP (SUGAR FREE) LOZ 24 LOZ/1 BOX BUCCAL PRN (16:45)
[2022-10-29] MEDS: SODIUM CHLORIDE 0.9% 1000ML 1,000 ML IV SCH (17:41)
[2022-10-29] MEDS: METOPROLOL SUCC 50MG EXT REL TAB PO SCH (20:25)
[2022-10-29] MEDS: CHOLECALCIFEROL 1,000 UNITS 25 MCG TAB PO SCH (20:25)
[2022-10-29] MEDS: ATORVASTATIN 20 MG TAB PO SCH (20:25)
[2022-10-29] MEDS: DOCUSATE SODIUM/SENNA 50/8.6MG TAB PO SCH (20:26)
[2022-10-29] MEDS: PREGABALIN 75 MG CAP PO SCH (20:28)
[2022-10-29] MEDS ORDERED: DOCUSATE SODIUM/SENNA 50/8.6MG TAB PO SCH (21:00)
[2022-10-29] MEDS: ceFAZolin 1000MG 1,000 MG/7.5 ML SYR IV SCH (22:44)
[2022-10-30] MEDS: ceFAZolin 1000MG 1,000 MG/7.5 ML SYR IV SCH (06:21)
[2022-10-30] MEDS: SODIUM CHLORIDE 0.9% 1000ML 1,000 ML IV SCH (06:21)
[2022-10-30 07:02] LABS: Basophils # (auto) 0.05 K/uL (0-0.2); Basophils % (auto) 0.3 %; Hematocrit (blood only) 35.3 % (37.0-47.0); Immature Granulocytes # (auto) 0.07 K/uL (0.01-0.20); Immature Granulocytes % (auto) 0.4 %; Lymphocytes % (auto) 9.1 %; Mean Corpuscular Hemoglobin 32.4 pg (25.0-34.0); Mean Corpuscular Volume 95.4 fL (80.0-100.0); Monocytes # (auto) 2.28 K/uL (0.11-0.59); Monocytes % (auto) 13.9 %; Neutrophils # (auto) 12.52 K/uL (1.40-6.50); Neutrophils % (auto) 76.3 %; Platelet Count 165 K/uL (130-400); RDW Coefficient of Variation 12.8 % (11.5-14.5); RDW Standard Deviation 44.3 fL (36.4-46.3); White Blood Count 16.42 K/ul (4.8-10.8)
[2022-10-30 07:17] LABS: Albumin Level 3.9 gm/dl (3.4-5.0); BUN Creatinine Ratio 20.8 (10-20); Calcium 8.7 mg/dl (8.5-10.1); Creatinine Clr Calc Pharmacy 72.6 ml/min; Est GFR (African American) 100.3 ml/min; Est GFR (Non-African American) 86.6 ml/min; Magnesium 1.8 mg/dl (1.7-2.4); Phosphorus 2.8 mg/dl (2.5-4.9); Potassium 4.1 mmol/L (3.5-5.1)
[2022-10-30] MEDS ORDERED: MAGNESIUM SULFATE / D5W 1 GM/100 ML BAG IV ONE (07:56)
[2022-10-30] MEDS: CYANOCOBALAMIN (B-12) 500 MCG TABLET PO SCH (08:11)
[2022-10-30] MEDS: DIGOXIN 0.125 MG TAB PO SCH (08:11)
[2022-10-30] MEDS: CHOLECALCIFEROL 1,000 UNITS 25 MCG TAB PO SCH ×2 (08:11→20:01)
[2022-10-30] MEDS: DULoxetine HCL 20 MG CAP PO SCH (08:12)
[2022-10-30] MEDS: EZETIMIBE 10 MG TABLET PO SCH (08:12)
[2022-10-30] MEDS: METOPROLOL SUCC 50MG EXT REL TAB PO SCH ×2 (08:12→20:00)
[2022-10-30] MEDS: INSULIN ASPART PER UNIT SC SCH ×4 (08:29→20:06)
[2022-10-30] MEDS: MoRPHine SULFATE 4 MG/ML 1 ML CARP\\VIAL IV PRN (10:07)
--- NOTE | 2022-10-30 10:38 | Electrocardiogram Report ---
Test Reason : Blood Pressure : / mmHG Vent. Rate : 084 BPM Atrial Rate : 075 BPM P-R Int : 000 ms QRS Dur : 074 ms QT Int : 374 ms P-R-T Axes : 000 -41 042 degrees QTc Int : 441 ms Poor data quality, interpretation may be adversely affected Atrial fibrillation Left axis deviation Abnormal ECG When compared with ECG of 28-OCT-2022 17:38, Atrial fibrillation has replaced Sinus rhythm Nonspecific T wave abnormality now evident in Inferior leads Confirmed by Preston Baker ([id number]) on 10/30/2022 10:38:14 AM Referred By: REFERRED SELF Confirmed By:Dandy Baker
--- NOTE | 2022-10-30 12:53 | Hospitalist Progress Note ---
Date of Service October 30, 2022 Assessment & Plan (1) Periprosthetic fracture around internal prosthetic right hip joint, initial encounter: Plan: Closed right hip periprosthetic fracture- Secondary to mechanical fall Orthopedic surgery consultation appreciated-s/p ORIF with Dr. Emanuel on 10/29 CBC with only minimal drop since preop Had some confusion with IV morphine-discontinue -start scheduled tylenol 1000mfg po tid -restarting Eliquis 2.5mg po bid this evening - PT/OT recommending rehab placement -continue Bowel regimen -Follow CBC and BMP in the morning (2) Atrial fibrillation: Plan: With history of paroxysmal atrial fibrillation-was in sinus rhythm here with first-degree AV block, PACs but then developed rapid afib/flutter for 4-5 hours on 10/30 Spontaneously converted Also has a history of nonsustained ventricular tachycardia during acute illness on previous hospitalizations many years ago -continue home digoxin, metoprolol succinate -restarting home apixaban this evening and aspirin in the AM -Continue telemetry monitoring -Keep electrolytes replete-give 1 gram IV mag today Follow BMP, magnesium in the morning (3) Osteoporosis: Plan: Osteoporotic fracture with fall from standing height vitamin D level here is excellent at 61 Continue vitamin D supplementation from home Follow-up with PCP for treatment for osteoporosis after recovery (4) CHF (congestive heart failure): Plan: Most recent echocardiogram in our system is 2016 and shows mild LVH, LVEF greater than 70%, grade 1 diastolic dysfunction No evidence of volume overload Okay to continue IV fluids in the perioperative setting Monitor I's and O's, daily weights (5) Lumbar stenosis with neurogenic claudication: Plan: Noted (6) Hypertension: Plan: Blood pressures are low normal continue to hold home amlodipine for now Continue home metoprolol specially with history of paroxysmal atrial fibrillation for rate control Monitor blood pressures (7) Hyperlipidemia: Plan: -continue atorvastatin 20 mg at bedtime and Zetia (8) Vitamin D deficiency: Plan: level good at 61 Continue home supplement (9) Stress incontinence in female: Plan: Hold home mirabegron 25 mg extended release daily while with Villagran catheter in place and until able to void (10) Peripheral neuropathy: Plan: continue home duloxetine and Lyrica (11) Depression: Plan: Continue duloxetine (12) Diabetes mellitus, type II: Plan: Hemoglobin A1c 8.4% Hold glipizide Place on Accu-Cheks before meals and at bedtime with NovoLog SSI May need to add on Lantus if has hyperglycemia jennifer tighten down goal range today (13) Sensorineural hearing loss (SNHL) of both ears: Plan: Noted (14) B12 deficiency: Plan: continue home B12 supplement Not anemic Plan DVT prophylaxis-SCDs, restart Eliquis Disposition- PT/OT consults recommend rehab placement. Family requesting rehab in their home area of [place]. Latrice Martell/jorge Rail Technician Discussed care with daughter at the bedside. Admission and Anticipated Discharge Date Admission Date: October 28, 2022 Subjective Family at bedside concerned for her mild confusion after receiving morphine today. RN reports prior to getting morphine she was at normal mentation baseline. Had rapid aflutter/fib for several hours this AM but spontaneously converted back to sinus with rates in the 70s. Rates in Afib/flutter was 120s Physical Exam Constitutional: well developed; no acute distress Eyes: + anicteric sclerae Respiratory: normal respiratory effort, lungs clear to auscultation Cardiovascular: RRR, no murmur, no edema Gastrointestinal (Abdomen): normal bowel sounds, soft, nontender, no hepatosplenomegaly Results & Data Results & Data ([facility]) Vital Signs (Past 12 Hours) Vital Signs Temp Pulse Pulse Resp BP Pulse Ox Pulse Ox 10/30/22 07:00 122 H 10/30/22 11:39 37.2 C 99 H 25 H 101/71 94 10/30/22 11:28 10/30/22 08:11 83 10/30/22 07:39 37.2 C 74 28 H 145/60 H 94 10/30/22 03:00 96 10/30/22 02:46 37.2 C 72 19 148/92 H 95 O2 Del Method O2 Del Method O2 Flow Rate O2 Flow Rate 10/30/22 07:00 10/30/22 11:39 Nasal Cannula 2 10/30/22 11:28 Nasal Cannula 2 10/30/22 08:11 10/30/22 07:39 Nasal Cannula 2 10/30/22 03:00 Nasal Cannula 2 10/30/22 02:46 Nasal Cannula 2 Laboratory Results CBC, BMP reviewed PG Care Time/CCT Total # of Minutes Spent Total Time Spent with Patient: Total time spent is greater than 50% in coordination of care (as documented) at patient's floor/unit and/or counseling patient: Coding Level of Care Code 66715 SUB INP/OBS CARE MIN Diagnoses Periprosthetic fracture around internal prosthetic right hip joint, initial encounter M97.01XA Atrial fibrillation I48.0 Atrial fibrillation type: paroxysmal Osteoporosis M81.0 CHF (congestive heart failure) I50.9 Lumbar stenosis with neurogenic claudication M48.062 Hypertension I10 Hypertension type: essential hypertension Hyperlipidemia E78.5 Vitamin D deficiency E55.9 Stress incontinence in female N39.3 Peripheral neuropathy G62.9 Depression F32.9 Diabetes mellitus, type II E11.9 Sensorineural hearing loss (SNHL) of both ears H90.3 B12 deficiency E53.8 (2) Atrial fibrillation Atrial fibrillation type: paroxysmal Qualified Code(s): I48.0 - Paroxysmal atrial fibrillation (6) Hypertension Hypertension type: essential hypertension Qualified Code(s): I10 - Essential (primary) hypertension
[2022-10-30] MEDS: ACETAMINOPHEN 500 MG TAB PO SCH ×2 (14:55→20:01)
--- NOTE | 2022-10-30 17:51 | Progress Notes ---
SUBJECTIVE: An 87-year-old female postoperative day 1 from open reduction internal fixation of a rig ht periprosthetic femur fracture. She is doing pretty well. Still having some discomfort in her leg , but seems to be improved. No new complaints. No chest pain or shortness of breath. Not feeling d niranjan or lightheaded. OBJECTIVE: VITAL SIGNS: Temperature 37.1. Vital signs are stable. PHYSICAL EXAMINATION: GENERAL: Shows a pleasant, elderly female. She is sitting up in bed, awake, alert and oriented. EXTREMITIES: Examination of the right leg reveals the leg to be well aligned. Some moderate swellin g of her thigh. Dressing is clean, dry and intact. No drainage. She can dorsiflex and plantarflex the foot appropriately. LABORATORY DATA: Hemoglobin 12.0. Hematocrit 35.3. White cell count 16.42. Electrolytes are stabl e. ASSESSMENT: An 87-year-old female with multiple medical comorbidities. Postop day 1 from open reduc tion internal fixation of a right periprosthetic femur fracture. Medically, she seems to be doing we ll. White count likely elevated just due to stress. There are no signs of infection. PLAN: 1. DVT prophylaxis includes thigh-high TEDs, SCDs and back on her Eliquis starting 24 hours postop a nd ____ that today 2.5 mg twice a day. 2. PT/OT. She can weight bear as tolerated on the right leg. 3. Pain control, doing okay with current pain regimen. 4. Medical management as per the medicine service. 5. Disposition: She is orthopedically okay for discharge any time medically stable. She is weightb earing as tolerated in this leg. I need to see her back two to three weeks out from surgery date. A ms orthopedic questions can be directed to me at [phone]. Job ID: [id number]
[2022-10-30] MEDS: APIXABAN 2.5 MG TAB PO SCH (18:18)
[2022-10-30] MEDS: oxyCODONE HCL IR 5 MG TAB (IMMEDIATE RELEASE) PO PRN (19:07)
[2022-10-30] MEDS: DOCUSATE SODIUM/SENNA 50/8.6MG TAB PO SCH (20:01)
[2022-10-30] MEDS: ATORVASTATIN 20 MG TAB PO SCH (20:01)
[2022-10-30] MEDS: PREGABALIN 75 MG CAP PO SCH (20:06)
[2022-10-31] MEDS: APIXABAN 2.5 MG TAB PO SCH ×2 (06:05→17:14)
[2022-10-31 06:34] LABS: Basophils # (auto) 0.04 K/uL (0-0.2); Basophils % (auto) 0.3 %; Eosinophils # (auto) 0.08 K/uL (0-0.50); Eosinophils % (auto) 0.6 %; Hematocrit (blood only) 33.6 % (37.0-47.0); Hemoglobin 11.2 g/dl (12.0-16.0); Immature Granulocytes # (auto) 0.07 K/uL (0.01-0.20); Immature Granulocytes % (auto) 0.5 %; Lymphocytes # (auto) 1.97 K/uL (1.2-3.4); Lymphocytes % (auto) 13.6 %; Mean Corpuscular Hemoglobin 32.4 pg (25.0-34.0); Mean Corpuscular Hgb Conc 33.3 g/dL (32.0-36.0); Mean Corpuscular Volume 97.1 fL (80.0-100.0); Mean Platelet Volume 10.7 fL (9.4-12.4); Monocytes # (auto) 2.07 K/uL (0.11-0.59); Monocytes % (auto) 14.3 %; Neutrophils # (auto) 10.22 K/uL (1.40-6.50); Neutrophils % (auto) 70.7 %; Platelet Count 145 K/uL (130-400); RDW Coefficient of Variation 13.1 % (11.5-14.5); RDW Standard Deviation 46.2 fL (36.4-46.3); Red Blood Count 3.46 M/uL (4.20-5.40); White Blood Count 14.45 K/ul (4.8-10.8)
[2022-10-31 06:43] LABS: Albumin Level 3.7 gm/dl (3.4-5.0); BUN Creatinine Ratio 37.1 (10-20); Est GFR (African American) 95.3 ml/min; Est GFR (Non-African American) 82.2 ml/min; Magnesium 1.9 mg/dl (1.7-2.4); Phosphorus 2.5 mg/dl (2.5-4.9)
[2022-10-31] MEDS ORDERED: MAGNESIUM SULFATE / D5W 1 GM/100 ML BAG IV ONE (08:15)
[2022-10-31] MEDS: DULoxetine HCL 20 MG CAP PO SCH (09:42)
[2022-10-31] MEDS: ACETAMINOPHEN 500 MG TAB PO SCH ×3 (09:42→21:01)
[2022-10-31] MEDS: EZETIMIBE 10 MG TABLET PO SCH (09:42)
[2022-10-31] MEDS: DIGOXIN 0.125 MG TAB PO SCH (09:42)
[2022-10-31] MEDS: INSULIN ASPART PER UNIT SC SCH ×4 (09:42→21:10)
[2022-10-31] MEDS: CYANOCOBALAMIN (B-12) 500 MCG TABLET PO SCH (09:42)
[2022-10-31] MEDS: CHOLECALCIFEROL 1,000 UNITS 25 MCG TAB PO SCH ×2 (09:43→21:03)
[2022-10-31] MEDS: METOPROLOL SUCC 50MG EXT REL TAB PO SCH ×2 (09:43→21:01)
[2022-10-31] MEDS: oxyCODONE HCL IR 5 MG TAB (IMMEDIATE RELEASE) PO PRN (11:25)
--- NOTE | 2022-10-31 15:35 | Hospitalist Progress Note ---
Date of Service October 31, 2022 Assessment & Plan (1) Periprosthetic fracture around internal prosthetic right hip joint, initial encounter: Plan: Closed right hip periprosthetic fracture- Secondary to mechanical fall Orthopedic surgery consultation appreciated-s/p ORIF with Dr. Emanuel on 10/29 with steel cable and multiple screws used for stabilization CBC with only minimal drop since preop down to 11.2, hemodynamically stable Had some confusion with IV morphine-discontinued Now tolerating po oxycodone for pain without alteration in mentation -continue scheduled tylenol 1000mg po tid -continue Eliquis 2.5mg po bid for DVT prophylaxis - PT/OT recommending rehab placement -continue Bowel regimen -straight cath for urinary retention on 10/31-likely related to opioid use and immobility -Follow CBC and BMP in the morning (2) Atrial fibrillation: Plan: With history of paroxysmal atrial fibrillation-was in sinus rhythm here with first-degree AV block, PACs but then developed rapid afib/flutter for 4-5 hours on 10/30 Spontaneously converted on 10/30 Again with some paroxysms of Afib on 10/31, asymptomatic Also has a history of nonsustained ventricular tachycardia during acute illness on previous hospitalizations many years ago -continue home digoxin, metoprolol succinate -continue apixaban for stroke prevention -Continue telemetry monitoring -Keep electrolytes replete-give 1 gram IV mag again today Follow BMP, magnesium in the morning (3) Osteoporosis: Plan: Osteoporotic fracture with fall from standing height vitamin D level here is excellent at 61 Continue vitamin D supplementation from home Follow-up with PCP for treatment for osteoporosis after recovery (4) CHF (congestive heart failure): Plan: Most recent echocardiogram in our system is 2016 and shows mild LVH, LVEF greater than 70%, grade 1 diastolic dysfunction No evidence of volume overload Monitor I's and O's, daily weights (5) Lumbar stenosis with neurogenic claudication: Plan: Noted (6) Hypertension: Plan: Blood pressures are now normal continue to hold home amlodipine for now Continue home metoprolol specially with history of paroxysmal atrial fibrillation for rate control Monitor blood pressures (7) Hyperlipidemia: Plan: -continue atorvastatin 20 mg at bedtime and Zetia (8) Vitamin D deficiency: Plan: level good at 61 Continue home supplement (9) Stress incontinence in female: Plan: Hold home mirabegron 25 mg extended release daily until able to void (10) Peripheral neuropathy: Plan: continue home duloxetine and Lyrica (11) Depression: Plan: Continue duloxetine (12) Diabetes mellitus, type II: Plan: Hemoglobin A1c 8.4% Hold glipizide Place on Accu-Cheks before meals and at bedtime with NovoLog SSI May need to add on Lantus if has hyperglycemia (13) Sensorineural hearing loss (SNHL) of both ears: Plan: Noted (14) B12 deficiency: Plan: continue home B12 supplement Not anemic Plan DVT prophylaxis-SCDs, Eliquis Disposition- PT/OT consults recommend rehab placement. Family requesting rehab in their home area of [place]. Jasbir D/w Recreation Program Specialist. Likely not ready for discharge for 2 more days will call daughter with update on 10/31 Admission and Anticipated Discharge Date Admission Date: October 28, 2022 Subjective Pt having a lot of pain in hip. No CP, SOB. Is retaining urine and about to be straight cathed when I saw her. Denies BM yet. Tele with paroxysmal Afib with rates 140s a the highest. Currently in NSR with rates 60s Physical Exam Constitutional: well developed; no acute distress Eyes: + anicteric sclerae Respiratory: normal respiratory effort, lungs clear to auscultation Cardiovascular: RRR, no murmur, no edema Gastrointestinal (Abdomen): normal bowel sounds, soft, nontender, no hepatosplenomegaly Musculoskeletal: Extremities: + extremities abnormal to inspection (right lateral thigh with dressing in place c/d/i) Psychiatric: Orientation: oriented x 3 and cooperative Results & Data Results & Data ([facility]) Vital Signs (Past 12 Hours) Vital Signs Temp Pulse Pulse Pulse Resp BP Pulse Ox 10/31/22 15:22 36.7 C 91 H 16 120/60 92 10/31/22 13:06 94 10/31/22 12:40 10/31/22 11:00 36.7 C 92 H 18 116/49 L 91 10/31/22 07:15 72 10/31/22 09:42 98 H 10/31/22 07:47 37.3 C 108 H 18 130/61 92 10/31/22 04:00 37.1 C 71 18 142/58 H 92 O2 Del Method O2 Flow Rate 10/31/22 15:22 Nasal Cannula 2 02/22/23 13:06 Nasal Cannula 2 10/31/22 12:40 Nasal Cannula 2 10/31/22 11:00 Nasal Cannula 2 10/31/22 07:15 10/31/22 09:42 10/31/22 07:47 Nasal Cannula 2 10/31/22 04:00 Room Air Laboratory Results CBC, BMP, magnesium level all reviewed PG Care Time/CCT Total # of Minutes Spent Total Time Spent with Patient: Total time spent is greater than 50% in coordination of care (as documented) at patient's floor/unit and/or counseling patient: Coding Level of Care Code 43553 SUB INP/OBS CARE MIN Diagnoses Periprosthetic fracture around internal prosthetic right hip joint, initial encounter M97.01XA Atrial fibrillation I48.0 Atrial fibrillation type: paroxysmal Osteoporosis M81.0 CHF (congestive heart failure) I50.9 Lumbar stenosis with neurogenic claudication M48.062 Hypertension I10 Hypertension type: essential hypertension Hyperlipidemia E78.5 Vitamin D deficiency E55.9 Stress incontinence in female N39.3 Peripheral neuropathy G62.9 Depression F32.9 Diabetes mellitus, type II E11.9 Sensorineural hearing loss (SNHL) of both ears H90.3 B12 deficiency E53.8 (2) Atrial fibrillation Atrial fibrillation type: paroxysmal Qualified Code(s): I48.0 - Paroxysmal atrial fibrillation (6) Hypertension Hypertension type: essential hypertension Qualified Code(s): I10 - Essential (primary) hypertension
[2022-10-31] MEDS: POLYETHYLENE (MIRALAX) 17 GM PACK PO SCH (17:16)
--- NOTE | 2022-10-31 18:10 | Progress Notes ---
DATE OF SERVICE: 10/31/2022. SUBJECTIVE: An 87-year-old female postoperative day 2 from ORIF of right periprosthetic femur fractu re. She seems to be confused this afternoon. She says she does have some moderate amount of pain. No new complaints. OBJECTIVE: VITAL SIGNS: Temperature 36.7. Vital signs are stable. GENERAL: Shows a pleasant, elderly female. She is sitting up in bed and seems a bit confused. EXTREMITIES: Examination of the right hip and leg reveals the dressing to be clean, dry and intact. Thigh is soft and supple. Some mild swelling. No drainage. She can dorsiflex and plantarflex her foot appropriately. LABORATORY DATA: Hemoglobin 11.2, hematocrit 33.6. White cell count is improved at 14.45. ASSESSMENT: An 87-year-old female postoperative day 2 from open reduction and internal fixation of right peripro sthetic femur fracture. She is a bit confused, which is not too surprising. Her pain seems to be re asonably controlled. She is neurologically intact. PLAN: 1. DVT prophylaxis includes thigh-high TEDs, SCDs and back on her Eliquis at 2.5 mg twice a day. 2. PT/OT. She can fully weightbear on this as she feels comfortable. 3. Pain control, doing okay with current pain regimen. I will try and limit any narcotics to avoid confusion issues. 4. Medical management as per the medicine service. 5. Disposition: She is orthopedically okay for discharge any time medically stable. I need to see her back two to three weeks out from surgery date. Any orthopedic questions can be directed to me at [phone]. Job ID: [id number]
[2022-10-31] MEDS: ATORVASTATIN 20 MG TAB PO SCH (21:02)
[2022-10-31] MEDS: PREGABALIN 75 MG CAP PO SCH (21:03)
[2022-10-31] MEDS: DOCUSATE SODIUM/SENNA 50/8.6MG TAB PO SCH (21:05)
[2022-11-01] MEDS: APIXABAN 2.5 MG TAB PO SCH ×2 (05:14→17:35)
[2022-11-01 07:49] LABS: Basophils # (auto) 0.03 K/uL (0-0.2); Basophils % (auto) 0.2 %; Eosinophils # (auto) 0.09 K/uL (0-0.50); Eosinophils % (auto) 0.7 %; Hematocrit (blood only) 32.9 % (37.0-47.0); Immature Granulocytes # (auto) 0.04 K/uL (0.01-0.20); Immature Granulocytes % (auto) 0.3 %; Lymphocytes # (auto) 1.48 K/uL (1.2-3.4); Lymphocytes % (auto) 11.8 %; Mean Corpuscular Hemoglobin 32.4 pg (25.0-34.0); Mean Corpuscular Hgb Conc 33.4 g/dL (32.0-36.0); Mean Corpuscular Volume 96.8 fL (80.0-100.0); Mean Platelet Volume 11.1 fL (9.4-12.4); Monocytes # (auto) 1.33 K/uL (0.11-0.59); Monocytes % (auto) 10.6 %; Neutrophils % (auto) 76.4 %; Platelet Count 149 K/uL (130-400); RDW Standard Deviation 46.3 fL (36.4-46.3); White Blood Count 12.57 K/ul (4.8-10.8)
[2022-11-01 08:03] LABS: BUN Creatinine Ratio 31.9 (10-20); Calcium 8.7 mg/dl (8.5-10.1); Est GFR (African American) 104.4 ml/min; Est GFR (Non-African American) 90.1 ml/min; Magnesium 1.8 mg/dl (1.7-2.4)
[2022-11-01] MEDS ORDERED: MAGNESIUM SULFATE / D5W 1 GM/100 ML BAG IV ONE (08:16)
[2022-11-01] MEDS: INSULIN ASPART PER UNIT SC SCH ×4 (09:03→21:11)
[2022-11-01] MEDS: oxyCODONE HCL IR 5 MG TAB (IMMEDIATE RELEASE) PO PRN (09:05)
[2022-11-01] MEDS: CHOLECALCIFEROL 1,000 UNITS 25 MCG TAB PO SCH ×2 (09:14→20:32)
[2022-11-01] MEDS: CYANOCOBALAMIN (B-12) 500 MCG TABLET PO SCH (09:15)
[2022-11-01] MEDS: DIGOXIN 0.125 MG TAB PO SCH (09:16)
[2022-11-01] MEDS: DULoxetine HCL 20 MG CAP PO SCH (09:17)
[2022-11-01] MEDS: EZETIMIBE 10 MG TABLET PO SCH (09:18)
[2022-11-01] MEDS: METOPROLOL SUCC 50MG EXT REL TAB PO SCH ×2 (09:18→20:33)
[2022-11-01] MEDS: POLYETHYLENE (MIRALAX) 17 GM PACK PO SCH (09:19)
[2022-11-01] MEDS: ACETAMINOPHEN 500 MG TAB PO SCH ×3 (10:23→20:34)
--- NOTE | 2022-11-01 15:54 | Hospitalist Progress Note ---
Date of Service November 01, 2022 Assessment & Plan (1) Periprosthetic fracture around internal prosthetic right hip joint, initial encounter: Plan: Closed right hip periprosthetic fracture- Secondary to mechanical fall Orthopedic surgery consultation appreciated-s/p ORIF with Dr. Emanuel on 10/29 with steel cable and multiple screws used for stabilization CBC with only minimal drop since preop down to 11.0, hemodynamically stable Had some confusion with IV morphine-discontinued Now tolerating po oxycodone for pain without alteration in mentation-pain better controlled -continue scheduled tylenol 1000mg po tid -continue Eliquis 2.5mg po bid for DVT prophylaxis - PT/OT recommending rehab placement-awaiting insurance approval -continue Bowel regimen-moved bowels on 11/01 -straight cath for urinary retention on 10/31-likely related to opioid use and immobility-now voiding without difficulty -Follow CBC and BMP in the morning (2) Atrial fibrillation: Plan: With history of paroxysmal atrial fibrillation-was in sinus rhythm here with first-degree AV block, PACs but then developed rapid afib/flutter for 4-5 hours on 10/30 Spontaneously converted on 10/30 Again with some paroxysms of Afib on 10/31, asymptomatic Now remains in sinus rhythm since morning of 10/31 Also has a history of nonsustained ventricular tachycardia during acute illness on previous hospitalizations many years ago -continue home digoxin, metoprolol succinate for rate control -continue apixaban for stroke prevention -Keep electrolytes replete-give 1 gram IV mag again today -Follow BMP, magnesium in the morning -Can downgrade off telemetry unit (3) Osteoporosis: Plan: Osteoporotic fracture with fall from standing height vitamin D level here is excellent at 61 Continue vitamin D supplementation from home Follow-up with PCP for treatment for osteoporosis after recovery (4) CHF (congestive heart failure): Plan: Chronic diastolic CHF Most recent echocardiogram in our system is 2017 and shows mild LVH, LVEF greater than 70%, grade 1 diastolic dysfunction No evidence of volume overload Monitor I's and O's, daily weights Blood pressures are controlled (5) Lumbar stenosis with neurogenic claudication: Plan: Noted (6) Hypertension: Plan: Blood pressures are now normal continue to hold home amlodipine for now for low normal BPs Continue home metoprolol specially with history of paroxysmal atrial fibrillation for rate control Monitor blood pressures (7) Hyperlipidemia: Plan: -continue atorvastatin 20 mg and Zetia (8) Vitamin D deficiency: Plan: level good at 61 Continue home supplement (9) Stress incontinence in female: Plan: Hold home mirabegron 25 mg extended release daily until voiding consistently without retention (10) Peripheral neuropathy: Plan: continue home duloxetine and Lyrica (11) Depression: Plan: Continue duloxetine (12) Diabetes mellitus, type II: Plan: Hemoglobin A1c 8.4% glipizide is on home med list but daughter reports that she never started taking it-agree with avoidance of this given advanced age and possibility of hypoglycemia With some hyperglycemia here Add on Lantus today, tighten NovoLog sliding scale Consider metformin as an outpatient in the future (13) Sensorineural hearing loss (SNHL) of both ears: Plan: Noted (14) B12 deficiency: Plan: continue home B12 supplement Not anemic prior to admission Plan DVT prophylaxis-SCDs, Eliquis Disposition- PT/OT consults recommend rehab placement. Insurance authorization pending at [facility]. Hopeful for discharge tomorrow if insurance approval comes through. Discussed care with daughter on phone again on 11/01 Admission and Anticipated Discharge Date Admission Date: October 28, 2022 Subjective Patient having pain today but seems a bit better controlled, has not taken any oxycodone since this morning. Moved her bowels today. Is eating and drinking. No other concerns Telemetry with normal sinus rhythm and no further A-fib Review of Systems Review of Systems: All systems reviewed & are unremarkable except as noted in HPI & below Physical Exam Constitutional: well developed; no acute distress Eyes: + anicteric sclerae Respiratory: normal respiratory effort, lungs clear to auscultation Cardiovascular: RRR, no murmur, no edema Gastrointestinal (Abdomen): normal bowel sounds, soft, nontender, no hepatosplenomegaly Musculoskeletal: Extremities: + extremities abnormal to inspection (right lateral thigh with dressing in place c/d/i) Psychiatric: Orientation: oriented x 3 and cooperative Results & Data Results & Data ([facility]) Vital Signs (Past 12 Hours) Vital Signs Temp Pulse Resp BP BP Pulse Ox Pulse Ox 11/01/22 15:15 36.4 C L 72 18 108/58 L 94 11/01/22 13:21 11/01/22 11:07 36.6 C 78 16 103/56 L 98 11/01/22 07:29 36.9 C 77 16 145/66 H 96 11/01/22 07:29 96 O2 Del Method O2 Del Method O2 Flow Rate O2 Flow Rate 11/01/22 15:15 Nasal Cannula 2 11/01/22 13:21 2 11/01/22 11:07 Nasal Cannula 2 11/01/22 07:29 Nasal Cannula 2 11/01/22 07:29 Nasal Cannula 2 Laboratory Results CBC and BMP, magnesium level reviewed PG Care Time/CCT Total # of Minutes Spent Total Time Spent with Patient: Total time spent is greater than 50% in coordination of care (as documented) at patient's floor/unit and/or counseling patient: Coding Level of Care Code 10375 SUB INP/OBS CARE MIN Diagnoses Periprosthetic fracture around internal prosthetic right hip joint, initial encounter M97.01XA Atrial fibrillation I48.0 Atrial fibrillation type: paroxysmal Osteoporosis M81.0 CHF (congestive heart failure) I50.9 Lumbar stenosis with neurogenic claudication M48.062 Hypertension I10 Hypertension type: essential hypertension Hyperlipidemia E78.5 Vitamin D deficiency E55.9 Stress incontinence in female N39.3 Peripheral neuropathy G62.9 Depression F32.9 Diabetes mellitus, type II E11.9 Sensorineural hearing loss (SNHL) of both ears H90.3 B12 deficiency E53.8 (2) Atrial fibrillation Atrial fibrillation type: paroxysmal Qualified Code(s): I48.0 - Paroxysmal atrial fibrillation (6) Hypertension Hypertension type: essential hypertension Qualified Code(s): I10 - Essential (primary) hypertension
--- NOTE | 2022-11-01 17:45 | Progress Notes ---
DATE OF SERVICE: 11/01/2022. SUBJECTIVE: An 87-year-old female postoperative day #3 from ORIF of right periprosthetic femur fract ure. She looks to be doing much better today. She is more awake, alert and less confused. She says her pain is getting better. OBJECTIVE: VITAL SIGNS: Temperature 36.4. Vital signs are stable. GENERAL: Shows a pleasant, elderly female. She is sitting up in bed and eating her dinner. She loo ks comfortable. EXTREMITIES: Examination of the right hip and leg reveals the legs to be equal in length. Her dress ing is clean, dry and intact. Thigh is mildly swollen. She is neurologically intact. LABORATORY DATA: Hemoglobin 11.0. Hematocrit 32.9. Electrolytes are stable. ASSESSMENT: An 87-year-old female with multiple medical comorbidities. Postop day 3 from ORIF of a right periprosthetic femur fracture. Seems much better today. Less confusion. Pain seems to be improving. PLAN: 1. DVT prophylaxis includes thigh-high TEDs, SCDs and back on Eliquis. 2. PT, OT, weightbear as tolerated. 3. Pain control, seems to be doing better from the pain standpoint. 4. Medical management as per the medicine service. 5. Disposition: She is orthopedically okay for discharge any time medically stable. I need to see her back two to three weeks out from surgery date. Any orthopedic questions can be directed to me at [phone]. Job ID: [id number]
[2022-11-01] MEDS: ATORVASTATIN 20 MG TAB PO SCH (20:32)
[2022-11-01] MEDS: DOCUSATE SODIUM/SENNA 50/8.6MG TAB PO SCH (20:33)
[2022-11-01] MEDS: PREGABALIN 75 MG CAP PO SCH (20:33)
[2022-11-01] MEDS: ASPIRIN 81 MG ECTAB PO SCH (20:38)
[2022-11-01] MEDS: LANTUS PER UNIT CHARGE SQ SCH (21:10)
[2022-11-02] MEDS: APIXABAN 2.5 MG TAB PO SCH ×2 (06:26→18:17)
--- NOTE | 2022-11-02 08:06 | Hospitalist Progress Note ---
Date of Service November 02, 2022 Assessment & Plan (1) Periprosthetic fracture around internal prosthetic right hip joint, initial encounter: Plan: Closed right hip periprosthetic fracture- Secondary to mechanical fall Orthopedic surgery consultation appreciated-s/p ORIF with Dr. Emanuel on 10/29 with steel cable and multiple screws used for stabilization CBC with only minimal drop since preop down to 11.0, hemodynamically stable Had some confusion with IV morphine-discontinued Now tolerating po oxycodone for pain without alteration in mentation-pain better controlled -continue scheduled Tylenol 1000mg po tid -continue Eliquis 2.5mg po bid for DVT prophylaxis - PT/OT recommending rehab placement-awaiting insurance approval -continue Bowel regimen-moved bowels on 11/01 -straight cath for urinary retention on 10/31-likely related to opioid use and immobility-now voiding without difficulty 11/02 --> Patient stable awaiting rehab. [facility] denied. --> Discussed with patient and she does not think she would be able to tolerate 3hr of therapy a day and would be best suited at [facility] Confirmed by CM w/ daughter ok w/ such and additional referrals sent (2) Atrial fibrillation: Plan: With history of paroxysmal atrial fibrillation-was in sinus rhythm here with first-degree AV block, PACs but then developed rapid afib/flutter for 4-5 hours on 10/30 Spontaneously converted on 10/30 Again with some paroxysms of Afib on 10/31, asymptomatic Now remains in sinus rhythm since morning of 10/31 Also has a history of nonsustained ventricular tachycardia during acute illness on previous hospitalizations many years ago -continue home digoxin, metoprolol succinate for rate control -continue apixaban for stroke prevention -Keep electrolytes replete-give 1 gram IV mag again today, downgraded off tele 11/01 -Follow BMP, magnesium in the morning (3) Osteoporosis: Plan: Osteoporotic fracture with fall from standing height vitamin D level here is excellent at 61 Continue vitamin D supplementation from home Follow-up with PCP for treatment for osteoporosis after recovery (4) CHF (congestive heart failure): Plan: Chronic diastolic CHF Most recent echocardiogram in our system is 2016 and shows mild LVH, LVEF greater than 70%, grade 1 diastolic dysfunction No evidence of volume overload Monitor I's and O's, daily weights Blood pressures are controlled (5) Lumbar stenosis with neurogenic claudication: Plan: Noted (6) Hypertension: Plan: Blood pressures are now normal continue to hold home amlodipine for now for low normal BPs Continue home metoprolol specially with history of paroxysmal atrial fibrillation for rate control Monitor blood pressures (7) Hyperlipidemia: Plan: -continue atorvastatin 20 mg and Zetia (8) Vitamin D deficiency: Plan: level good at 61 Continue home supplement (9) Stress incontinence in female: Plan: Hold home mirabegron 25 mg extended release daily until voiding consistently without retention (10) Peripheral neuropathy: Plan: continue home duloxetine and Lyrica (11) Depression: Plan: Continue duloxetine (12) Diabetes mellitus, type II: Plan: Hemoglobin A1c 8.4% glipizide is on home med list but daughter reports that she never started taking it-agree with avoidance of this given advanced age and possibility of hypoglycemia With some hyperglycemia here Add on Lantus 10u HS, tightened SSI 11/01 Monitor and tighten SSI if needed Consider metformin as an outpatient in the future (13) Sensorineural hearing loss (SNHL) of both ears: Plan: Noted (14) B12 deficiency: Plan: continue home B12 supplement Not anemic prior to admission Plan DVT prophylaxis-SCDs, Eliquis Disposition- PT/OT consults recommend rehab placement. Insurance authorization pending at [facility]. Hopeful for discharge tomorrow if insurance approval comes through. Discussed care with daughter on phone again on 11/01 -- CM confirmed w/ her after I discussed [facility] and ok w/ SNF Admission and Anticipated Discharge Date Admission Date: October 28, 2022 Supervising Physician Co-Signing Physician Notes The patient was seen by me. The chart was reviewed. Case discussed with GETACHEW Barrios. She will eventually be discharged to an SNF facility. Agree with assessment and plan Subjective eval this morning, pain improved, got medicated this morning. worked with therapy and was able to get to bedside commode this morning. No fever/chills, chest pain, shortness of breath. Discussed insurance denial for [facility], to be able to participate 3hr daily. She thinks this would be too much for her. Will touch base w/ CM and her daughter to see best options fit to serve her. Questions/concerns addressed at this time. Physical Exam Constitutional: well developed; no acute distress Eyes: + anicteric sclerae ENMT: mmm, trachea midline Respiratory: normal respiratory effort, lungs clear to auscultation Cardiovascular: RRR, no murmur, no edema Gastrointestinal (Abdomen): normal bowel sounds, soft, nontender, no hepatosplenomegaly Musculoskeletal: Extremities: + extremities abnormal to inspection (right lateral thigh with dressing in place c/d/i) sensation intact, pulses palpable and SCDs in place bilaterally Psychiatric: Orientation: oriented x 3 and cooperative Results & Data Results & Data ([facility]) Vital Signs (Past 12 Hours) Vital Signs Temp Pulse Resp BP Pulse Ox O2 Del Method 11/02/22 07:00 36.7 C 78 16 151/63 H 95 Room Air 11/01/22 22:21 37.1 C 82 16 119/62 92 Room Air Laboratory Results 11/02/22 11/02/22 11/02/22 Range/Units 12:04 08:24 08:24 WBC 8.90 (4.8-10.8) K/ul RBC 3.58 L (4.20-5.40) M/uL Hgb 11.3 L (12.0-16.0) g/dl Hct 34.3 L (37.0-47.0) % MCV 95.8 (80.0-100.0) fL MCH 31.6 (25.0-34.0) pg MCHC 32.9 (32.0-36.0) g/dL RDW Std Deviation 45.5 (36.4-46.3) fL RDW Coeff of Diya 12.9 (11.5-14.5) % Plt Count 190 (130-400) K/uL MPV 10.7 (9.4-12.4) fL Immature Gran % (Auto) 0.3 % Neut % (Auto) 71.8 % Lymph % (Auto) 14.6 % [place] % (Auto) 11.5 % Eos % (Auto) 1.6 % Baso % (Auto) 0.2 % Neut # (Auto) 6.39 (1.40-6.50) K/uL Lymph # (Auto) 1.30 (1.2-3.4) K/uL [place] # (Auto) 1.02 H (0.11-0.59) K/uL Eos # (Auto) 0.14 (0-0.50) K/uL Baso # (Auto) 0.02 (0-0.2) K/uL Immature Gran # (Auto) 0.03 (0.01-0.20) K/uL Sodium 138 (136-145) mmol/L Potassium 4.4 (3.5-5.1) mmol/L Chloride 101 (98-107) mmol/L Carbon Dioxide 34 H (21-32) mmol/L Anion Gap 3 (3-11) BUN 15 (6-23) mg/dl Creatinine 0.48 L (0.6-1.2) mg/dl Est Cr Clr Drug Dosing 79.3 ml/min Est GFR ( Amer) 103.7 ml/min Est GFR (Non-Af Amer) 89.4 ml/min BUN/Creatinine Ratio 31.3 H (10-20) Glucose 162 H (70-99(Fasting)) mg/dl POC Glucose 201 H (70-99) mg/dl Calcium 8.7 (8.5-10.1) mg/dl Magnesium 1.8 (1.7-2.4) mg/dl 11/02/22 11/01/22 11/01/22 Range/Units 08:06 20:39 16:42 WBC (4.8-10.8) K/ul RBC (4.20-5.40) M/uL Hgb (12.0-16.0) g/dl Hct (37.0-47.0) % MCV (80.0-100.0) fL MCH (25.0-34.0) pg MCHC (32.0-36.0) g/dL RDW Std Deviation (36.4-46.3) fL RDW Coeff of Diya (11.5-14.5) % Plt Count (130-400) K/uL MPV (9.4-12.4) fL Immature Gran % (Auto) % Neut % (Auto) % Lymph % (Auto) % [place] % (Auto) % Eos % (Auto) % Baso % (Auto) % Neut # (Auto) (1.40-6.50) K/uL Lymph # (Auto) (1.2-3.4) K/uL [place] # (Auto) (0.11-0.59) K/uL Eos # (Auto) (0-0.50) K/uL Baso # (Auto) (0-0.2) K/uL Immature Gran # (Auto) (0.01-0.20) K/uL Sodium (136-145) mmol/L Potassium (3.5-5.1) mmol/L Chloride (98-107) mmol/L Carbon Dioxide (21-32) mmol/L Anion Gap (3-11) BUN (6-23) mg/dl Creatinine (0.6-1.2) mg/dl Est Cr Clr Drug Dosing ml/min Est GFR ( Amer) ml/min Est GFR (Non-Af Amer) ml/min BUN/Creatinine Ratio (10-20) Glucose (70-99(Fasting)) mg/dl POC Glucose 147 H 127 H 158 H (70-99) mg/dl Calcium (8.5-10.1) mg/dl Magnesium (1.7-2.4) mg/dl PG Care Time/CCT Total # of Minutes Spent Total Time Spent with Patient: Total time spent is greater than 50% in coordination of care (as documented) at patient's floor/unit and/or counseling patient: Coding Level of Care Code 64427 SUB INP/OBS CARE 10/03MIN Diagnoses Periprosthetic fracture around internal prosthetic right hip joint, initial encounter M97.01XA Atrial fibrillation I48.0 Atrial fibrillation type: paroxysmal Osteoporosis M81.0 CHF (congestive heart failure) I50.9 Lumbar stenosis with neurogenic claudication M48.062 Hypertension I10 Hypertension type: essential hypertension Hyperlipidemia E78.5 Vitamin D deficiency E55.9 Stress incontinence in female N39.3 Peripheral neuropathy G62.9 Depression F32.9 Diabetes mellitus, type II E11.9 Sensorineural hearing loss (SNHL) of both ears H90.3 B12 deficiency E53.8 (2) Atrial fibrillation Atrial fibrillation type: paroxysmal Qualified Code(s): I48.0 - Paroxysmal atrial fibrillation (6) Hypertension Hypertension type: essential hypertension Qualified Code(s): I10 - Essential (primary) hypertension
[2022-11-02] MEDS: INSULIN ASPART PER UNIT SC SCH ×4 (09:04→20:47)
[2022-11-02] MEDS: oxyCODONE HCL IR 5 MG TAB (IMMEDIATE RELEASE) PO PRN ×2 (09:05→20:37)
[2022-11-02 09:07] LABS: Basophils # (auto) 0.02 K/uL (0-0.2); Basophils % (auto) 0.2 %; Eosinophils # (auto) 0.14 K/uL (0-0.50); Eosinophils % (auto) 1.6 %; Hematocrit (blood only) 34.3 % (37.0-47.0); Hemoglobin 11.3 g/dl (12.0-16.0); Immature Granulocytes # (auto) 0.03 K/uL (0.01-0.20); Immature Granulocytes % (auto) 0.3 %; Lymphocytes % (auto) 14.6 %; Mean Corpuscular Hemoglobin 31.6 pg (25.0-34.0); Mean Corpuscular Hgb Conc 32.9 g/dL (32.0-36.0); Mean Corpuscular Volume 95.8 fL (80.0-100.0); Mean Platelet Volume 10.7 fL (9.4-12.4); Monocytes # (auto) 1.02 K/uL (0.11-0.59); Monocytes % (auto) 11.5 %; Neutrophils # (auto) 6.39 K/uL (1.40-6.50); Neutrophils % (auto) 71.8 %; Platelet Count 190 K/uL (130-400); RDW Coefficient of Variation 12.9 % (11.5-14.5); RDW Standard Deviation 45.5 fL (36.4-46.3); Red Blood Count 3.58 M/uL (4.20-5.40)
[2022-11-02] MEDS: CHOLECALCIFEROL 1,000 UNITS 25 MCG TAB PO SCH ×2 (09:10→20:36)
[2022-11-02] MEDS: CYANOCOBALAMIN (B-12) 500 MCG TABLET PO SCH (09:10)
[2022-11-02] MEDS: DIGOXIN 0.125 MG TAB PO SCH (09:11)
[2022-11-02] MEDS: EZETIMIBE 10 MG TABLET PO SCH (09:12)
[2022-11-02] MEDS: DULoxetine HCL 20 MG CAP PO SCH (09:12)
[2022-11-02] MEDS: METOPROLOL SUCC 50MG EXT REL TAB PO SCH ×2 (09:12→20:37)
[2022-11-02] MEDS: POLYETHYLENE (MIRALAX) 17 GM PACK PO SCH (09:13)
[2022-11-02 09:23] LABS: BUN Creatinine Ratio 31.3 (10-20); Calcium 8.7 mg/dl (8.5-10.1); Creatinine Clr Calc Pharmacy 79.3 ml/min; Est GFR (African American) 103.7 ml/min; Est GFR (Non-African American) 89.4 ml/min; Magnesium 1.8 mg/dl (1.7-2.4); Potassium 4.4 mmol/L (3.5-5.1)
[2022-11-02] MEDS ORDERED: MAGNESIUM SULFATE / D5W 1 GM/100 ML BAG IV ONE (09:51)
[2022-11-02] MEDS: ACETAMINOPHEN 500 MG TAB PO SCH ×3 (11:38→20:39)
[2022-11-02] MEDS: ASPIRIN 81 MG ECTAB PO SCH (12:48)
[2022-11-02] MEDS: ATORVASTATIN 20 MG TAB PO SCH (20:35)
[2022-11-02] MEDS: DOCUSATE SODIUM/SENNA 50/8.6MG TAB PO SCH (20:40)
[2022-11-02] MEDS: LANTUS PER UNIT CHARGE SQ SCH (20:42)
[2022-11-02] MEDS: PREGABALIN 75 MG CAP PO SCH (20:43)
[2022-11-03] MEDS: APIXABAN 2.5 MG TAB PO SCH ×2 (06:00→17:33)
--- NOTE | 2022-11-03 07:47 | Hospitalist Progress Note ---
Date of Service November 03, 2022 Assessment & Plan (1) Periprosthetic fracture around internal prosthetic right hip joint, initial encounter: Plan: Closed right hip periprosthetic fracture- Secondary to mechanical fall Orthopedic surgery consultation appreciated-s/p ORIF with Dr. Emanuel on 10/29 with steel cable and multiple screws used for stabilization CBC with only minimal drop since preop down to 11.0, hemodynamically stable Had some confusion with IV morphine-discontinued Now tolerating po oxycodone for pain without alteration in mentation-pain better controlled -continue scheduled Tylenol 1000mg po tid -continue Eliquis 2.5mg po bid for DVT prophylaxis - PT/OT recommending rehab placement-awaiting insurance approval -continue Bowel regimen-moved bowels on 11/01 -straight cath for urinary retention on 10/31-likely related to opioid use and immobility-now voiding without difficulty 11/03 --> Patient stable awaiting rehab, [facility] denied and discussed with patient 11/02 3hr too much and pursuing SNF. CM following and referrals sent -- [facility] referral sent. Daughter going to look at other SNFs in the area and call CM back w/ additional ref options She actually did better today with therapy and was able to make it 30 feet. Continue pain control/bowel regimen (+BM 11/03 reported this morning by patient) (2) Atrial fibrillation: Plan: With history of paroxysmal atrial fibrillation-was in sinus rhythm here with first-degree AV block, PACs but then developed rapid afib/flutter for 4-5 hours on 10/30 Spontaneously converted on 10/30 Again with some paroxysms of Afib on 10/31, asymptomatic Now remains in sinus rhythm since morning of 10/31 Also has a history of nonsustained ventricular tachycardia during acute illness on previous hospitalizations many years ago continue home digoxin, metoprolol succinate for rate control continue apixaban for stroke prevention Keep electrolytes replete-give 1 gram IV mag again today, downgraded off tele 11/01 additional 1gm IV mag for 11/03 and placed on PO magnesium and will repeat labs on Saturday to ensure remains stable. No palpitations/CP/SOB reported (3) Osteoporosis: Plan: Osteoporotic fracture with fall from standing height vitamin D level here is excellent at 61 Continue vitamin D supplementation from home Follow-up with PCP for treatment for osteoporosis after recovery (4) CHF (congestive heart failure): Plan: Chronic diastolic CHF Most recent echocardiogram in our system is 2017 and shows mild LVH, LVEF greater than 70%, grade 1 diastolic dysfunction No evidence of volume overload Monitor I's and O's, daily weights Blood pressures are controlled (5) Lumbar stenosis with neurogenic claudication: Plan: Noted (6) Hypertension: Plan: Blood pressures are now normal continue to hold home amlodipine for now for low normal BPs Continue home metoprolol specially with history of paroxysmal atrial fibrillation for rate control Monitor blood pressures (7) Hyperlipidemia: Plan: -continue atorvastatin 20 mg and Zetia (8) Vitamin D deficiency: Plan: level good at 61 Continue home supplement (9) Stress incontinence in female: Plan: Hold home mirabegron 25 mg extended release daily until voiding consistently without retention (10) Peripheral neuropathy: Plan: continue home duloxetine and Lyrica (11) Depression: Plan: Continue duloxetine (12) Diabetes mellitus, type II: Plan: Hemoglobin A1c 8.4% glipizide is on home med list but daughter reports that she never started taking it-agree with avoidance of this given advanced age and possibility of hypoglycemia With some hyperglycemia here Added on Lantus 10u HS, tightened SSI 11/01 Monitor and tighten SSI as needed -- BSGS acceptable Consider metformin as an outpatient in the future (13) Sensorineural hearing loss (SNHL) of both ears: Plan: Noted (14) B12 deficiency: Plan: continue home B12 supplement Not anemic prior to admission Plan DVT prophylaxis-SCDs, Eliquis Disposition- PT/OT consults recommend rehab placement. Insurance authorization pending at [facility]. Hopeful for discharge tomorrow if insurance approval comes through. Discussed care with daughter on phone again on 11/01 -- CM confirmed w/ her after I discussed [facility] and ok w/ SNF -- CM following Admission and Anticipated Discharge Date Admission Date: October 28, 2022 Supervising Physician Co-Signing Physician Notes The patient was not seen by me. The chart was reviewed. Case discussed with GETACHEW Barrios. Agree with assessment and plan Subjective Eval this morning, doing well. Moved her bowels this morning, good appetite. Just got done working with therapy and actually made it 30 feet! We celebrated her progress and discussed awaiting bed at SNF. Pain controlled and she did note she got something before therapy. No chest pain/shortness of breath, palpitations reported. Discussed holding off lab stick for tomorrow and she states she would be thankful for this. Questions/concerns addressed at this time. Review of Systems Review of Systems: All systems reviewed & are unremarkable except as noted in HPI & below Physical Exam Constitutional: well developed; no acute distress sitting up in chair, just got done working with therapy, improved energy Eyes: + anicteric sclerae ENMT: mmm, trachea midline Respiratory: normal respiratory effort, lungs clear to auscultation Cardiovascular: RRR, no murmur, no edema Gastrointestinal (Abdomen): normal bowel sounds, soft, nontender, no hepatosplenomegaly less distended (reported BM this morning 11/03) Musculoskeletal: Extremities: + extremities abnormal to inspection (right lateral thigh with sutures in place, open to air, no drainage/erythem) sensation intact, pulses palpable and SCDs in place bilaterally Psychiatric: Orientation: oriented x 3 and cooperative Results & Data Results & Data ([facility]) Vital Signs (Past 12 Hours) Vital Signs Temp Pulse Pulse Resp BP Pulse Ox O2 Del Method 11/03/22 07:00 36.6 C 62 16 155/65 H 97 Room Air 11/02/22 20:30 Room Air 11/02/22 20:28 36.7 C 72 18 146/66 H 95 Room Air Laboratory Results 11/02/22 11/02/22 11/02/22 Range/Units 20:25 17:23 12:04 WBC (4.8-10.8) K/ul RBC (4.20-5.40) M/uL Hgb (12.0-16.0) g/dl Hct (37.0-47.0) % MCV (80.0-100.0) fL MCH (25.0-34.0) pg MCHC (32.0-36.0) g/dL RDW Std Deviation (36.4-46.3) fL RDW Coeff of Diya (11.5-14.5) % Plt Count (130-400) K/uL MPV (9.4-12.4) fL Immature Gran % (Auto) % Neut % (Auto) % Lymph % (Auto) % [place] % (Auto) % Eos % (Auto) % Baso % (Auto) % Neut # (Auto) (1.40-6.50) K/uL Lymph # (Auto) (1.2-3.4) K/uL [place] # (Auto) (0.11-0.59) K/uL Eos # (Auto) (0-0.50) K/uL Baso # (Auto) (0-0.2) K/uL Immature Gran # (Auto) (0.01-0.20) K/uL Sodium (136-145) mmol/L Potassium (3.5-5.1) mmol/L Chloride (98-107) mmol/L Carbon Dioxide (21-32) mmol/L Anion Gap (3-11) BUN (6-23) mg/dl Creatinine (0.6-1.2) mg/dl Est Cr Clr Drug Dosing ml/min Est GFR ( Amer) ml/min Est GFR (Non-Af Amer) ml/min BUN/Creatinine Ratio (10-20) Glucose (70-99(Fasting)) mg/dl POC Glucose 181 H 119 H 201 H (70-99) mg/dl Calcium (8.5-10.1) mg/dl Magnesium (1.7-2.4) mg/dl 11/02/22 11/02/22 11/02/22 Range/Units 08:24 08:24 08:06 WBC 8.90 (4.8-10.8) K/ul RBC 3.58 L (4.20-5.40) M/uL Hgb 11.3 L (12.0-16.0) g/dl Hct 34.3 L (37.0-47.0) % MCV 95.8 (80.0-100.0) fL MCH 31.6 (25.0-34.0) pg MCHC 32.9 (32.0-36.0) g/dL RDW Std Deviation 45.5 (36.4-46.3) fL RDW Coeff of Diya 12.9 (11.5-14.5) % Plt Count 190 (130-400) K/uL MPV 10.7 (9.4-12.4) fL Immature Gran % (Auto) 0.3 % Neut % (Auto) 71.8 % Lymph % (Auto) 14.6 % [place] % (Auto) 11.5 % Eos % (Auto) 1.6 % Baso % (Auto) 0.2 % Neut # (Auto) 6.39 (1.40-6.50) K/uL Lymph # (Auto) 1.30 (1.2-3.4) K/uL [place] # (Auto) 1.02 H (0.11-0.59) K/uL Eos # (Auto) 0.14 (0-0.50) K/uL Baso # (Auto) 0.02 (0-0.2) K/uL Immature Gran # (Auto) 0.03 (0.01-0.20) K/uL Sodium 138 (136-145) mmol/L Potassium 4.4 (3.5-5.1) mmol/L Chloride 101 (98-107) mmol/L Carbon Dioxide 34 H (21-32) mmol/L Anion Gap 3 (3-11) BUN 15 (6-23) mg/dl Creatinine 0.48 L (0.6-1.2) mg/dl Est Cr Clr Drug Dosing 79.3 ml/min Est GFR ( Amer) 103.7 ml/min Est GFR (Non-Af Amer) 89.4 ml/min BUN/Creatinine Ratio 31.3 H (10-20) Glucose 162 H (70-99(Fasting)) mg/dl POC Glucose 147 H (70-99) mg/dl Calcium 8.7 (8.5-10.1) mg/dl Magnesium 1.8 (1.7-2.4) mg/dl PG Care Time/CCT Total # of Minutes Spent Total Time Spent with Patient: Total time spent is greater than 50% in coordination of care (as documented) at patient's floor/unit and/or counseling patient: Coding Level of Care Code 00149 SUB INP/OBS CARE 235MIN Diagnoses Periprosthetic fracture around internal prosthetic right hip joint, initial encounter M97.01XA Atrial fibrillation I48.0 Atrial fibrillation type: paroxysmal Osteoporosis M81.0 CHF (congestive heart failure) I50.9 Lumbar stenosis with neurogenic claudication M48.062 Hypertension I10 Hypertension type: essential hypertension Hyperlipidemia E78.5 Vitamin D deficiency E55.9 Stress incontinence in female N39.3 Peripheral neuropathy G62.9 Depression F32.9 Diabetes mellitus, type II E11.9 Sensorineural hearing loss (SNHL) of both ears H90.3 B12 deficiency E53.8 (2) Atrial fibrillation Atrial fibrillation type: paroxysmal Qualified Code(s): I48.0 - Paroxysmal atrial fibrillation (6) Hypertension Hypertension type: essential hypertension Qualified Code(s): I10 - Essential (primary) hypertension
[2022-11-03] MEDS: ASPIRIN 81 MG ECTAB PO SCH (08:35)
[2022-11-03] MEDS: METOPROLOL SUCC 50MG EXT REL TAB PO SCH ×2 (08:35→20:17)
[2022-11-03] MEDS: DIGOXIN 0.125 MG TAB PO SCH (08:35)
[2022-11-03] MEDS: EZETIMIBE 10 MG TABLET PO SCH (08:35)
[2022-11-03] MEDS: CHOLECALCIFEROL 1,000 UNITS 25 MCG TAB PO SCH ×2 (08:35→20:16)
[2022-11-03] MEDS: DULoxetine HCL 20 MG CAP PO SCH (08:35)
[2022-11-03] MEDS: CYANOCOBALAMIN (B-12) 500 MCG TABLET PO SCH (08:35)
[2022-11-03] MEDS: INSULIN ASPART PER UNIT SC SCH ×4 (08:40→20:44)
[2022-11-03] MEDS: POLYETHYLENE (MIRALAX) 17 GM PACK PO SCH (08:40)
[2022-11-03] MEDS: ACETAMINOPHEN 500 MG TAB PO SCH ×3 (08:41→20:28)
[2022-11-03] MEDS: oxyCODONE HCL IR 5 MG TAB (IMMEDIATE RELEASE) PO PRN ×3 (08:45→20:15)
[2022-11-03 08:53] LABS: Hematocrit (blood only) 33.6 % (37.0-47.0); Hemoglobin 11.2 g/dl (12.0-16.0); Mean Corpuscular Hemoglobin 31.6 pg (25.0-34.0); Mean Corpuscular Hgb Conc 33.3 g/dL (32.0-36.0); Mean Corpuscular Volume 94.9 fL (80.0-100.0); Mean Platelet Volume 10.4 fL (9.4-12.4); Platelet Count 217 K/uL (130-400); RDW Standard Deviation 45.2 fL (36.4-46.3); Red Blood Count 3.54 M/uL (4.20-5.40); White Blood Count 7.14 K/ul (4.8-10.8)
[2022-11-03 09:10] LABS: BUN Creatinine Ratio 32.7 (10-20); Calcium 8.9 mg/dl (8.5-10.1); Creatinine Clr Calc Pharmacy 66.1 ml/min; Est GFR (African American) 99.1 ml/min; Est GFR (Non-African American) 85.5 ml/min; Magnesium 1.8 mg/dl (1.7-2.4); Potassium 4.3 mmol/L (3.5-5.1)
[2022-11-03] MEDS ORDERED: MAGNESIUM SULFATE / D5W 1 GM/100 ML BAG IV ONE (09:15)
[2022-11-03] MEDS: MAGNESIUM CHLORIDE W/CALCIUM 64MG DELAYED REL TAB PO SCH (09:55)
[2022-11-03] MEDS: ATORVASTATIN 20 MG TAB PO SCH (20:16)
[2022-11-03] MEDS: DOCUSATE SODIUM/SENNA 50/8.6MG TAB PO SCH (20:29)
[2022-11-03] MEDS: PREGABALIN 75 MG CAP PO SCH (20:29)
[2022-11-03] MEDS: LANTUS PER UNIT CHARGE SQ SCH (20:48)
[2022-11-04] MEDS: oxyCODONE HCL IR 5 MG TAB (IMMEDIATE RELEASE) PO PRN ×2 (04:18→20:55)
[2022-11-04] MEDS: APIXABAN 2.5 MG TAB PO SCH ×2 (05:51→17:58)
--- NOTE | 2022-11-04 07:56 | Hospitalist Progress Note ---
Date of Service November 04, 2022 Assessment & Plan (1) Periprosthetic fracture around internal prosthetic right hip joint, initial encounter: Plan: Closed right hip periprosthetic fracture- Secondary to mechanical fall Orthopedic surgery consultation appreciated-s/p ORIF with Dr. Emanuel on 10/29 with steel cable and multiple screws used for stabilization CBC with only minimal drop since preop down to 11.0, hemodynamically stable Had some confusion with IV morphine-discontinued Now tolerating po oxycodone for pain without alteration in mentation-pain better controlled -continue scheduled Tylenol 1000mg po tid -continue Eliquis 2.5mg po bid for DVT prophylaxis - PT/OT recommending rehab placement-awaiting insurance approval -continue Bowel regimen-moved bowels on 11/01 -straight cath for urinary retention on 10/31-likely related to opioid use and immobility-now voiding without difficulty 11/04 --> Patient stable awaiting rehab, [facility] denied and discussed with patient 11/02 3hr too much and pursuing SNF. CM following and referrals sent -- [facility] referral sent. Daughter going to look at other SNFs in the area and call CM back w/ additional ref options She actually did better 11/03 with therapy and was able to make it 30 feet. Continue pain control/bowel regimen (+BM 11/03 reported this morning by patient, BM in bedside commode this morning) Monitor BMP/Mag in AM (2) Atrial fibrillation: Plan: With history of paroxysmal atrial fibrillation-was in sinus rhythm here with first-degree AV block, PACs but then developed rapid afib/flutter for 4-5 hours on 10/30 Spontaneously converted on 10/30 Again with some paroxysms of Afib on 10/31, asymptomatic Now remains in sinus rhythm since morning of 10/31 Also has a history of nonsustained ventricular tachycardia during acute illness on previous hospitalizations many years ago continue home digoxin, metoprolol succinate for rate control continue apixaban for stroke prevention Keep electrolytes replete- downgraded off tele 11/01 --additional 1gm IV mag for 11/03 and placed on PO magnesium will repeat labs on Saturday to ensure remains stable. No palpitations/CP/SOB reported (3) Osteoporosis: Plan: Osteoporotic fracture with fall from standing height vitamin D level here is excellent at 61 Continue vitamin D supplementation from home Follow-up with PCP for treatment for osteoporosis after recovery (4) CHF (congestive heart failure): Plan: Chronic diastolic CHF Most recent echocardiogram in our system is 2017 and shows mild LVH, LVEF greater than 70%, grade 1 diastolic dysfunction No evidence of volume overload Monitor I's and O's, daily weights Blood pressures are controlled (5) Lumbar stenosis with neurogenic claudication: Plan: Noted (6) Hypertension: Plan: Blood pressures are now normal continue to hold home amlodipine for now for low normal BPs Continue home metoprolol specially with history of paroxysmal atrial fibrillation for rate control Monitor blood pressures (7) Hyperlipidemia: Plan: Continue atorvastatin 20 mg and Zetia (8) Vitamin D deficiency: Plan: Level good at 61 Continue home supplement (9) Stress incontinence in female: Plan: Hold home mirabegron 25 mg extended release daily until voiding consistently without retention (10) Peripheral neuropathy: Plan: continue home duloxetine and Lyrica (11) Depression: Plan: Continue duloxetine (12) Diabetes mellitus, type II: Plan: Hemoglobin A1c 8.4% glipizide is on home med list but daughter reports that she never started taking it-agree with avoidance of this given advanced age and possibility of hypoglycemia With some hyperglycemia here Added on Lantus 10u HS, tightened SSI 11/01 Monitor and tighten SSI as needed -- BSGS acceptable and much improved -- continue current regimen at d/c and can consider metformin as an outpatient in the future (13) Sensorineural hearing loss (SNHL) of both ears: Plan: Noted (14) B12 deficiency: Plan: continue home B12 supplement Not anemic prior to admission Plan DVT prophylaxis-SCDs, Eliquis Disposition- PT/OT consults recommend rehab placement. Insurance authorization pending at [facility]. Hopeful for discharge tomorrow if insurance approval comes through. Discussed care with daughter on phone again on 11/01 -- CM confirmed w/ her after I discussed [facility] and ok w/ SNF -- CM following Admission and Anticipated Discharge Date Admission Date: October 28, 2022 Supervising Physician Co-Signing Physician Notes The patient was not seen by me. The chart was reviewed. Case discussed with GETACHEW Barrios. Agree with assessment and plan Subjective eval this morning, resting comfortably in bed. pain controlled with ordered medications. eating/drinking no issue, moving her bowels. Bedside commode needing emptied currently. Looking for bed, hopeful SNF for tomorrow or early this week. No chest pain/shortness of breath or palpitations. She was thankful to avoid IV stick this morning for labs and will monitor in AM to ensure stable K/Mag w/ her afib or sooner if needed. On PO mag supplementation. Questions/concerns addressed at this time. Physical Exam Constitutional: well developed; no acute distress Eyes: + anicteric sclerae Respiratory: normal respiratory effort, lungs clear to auscultation Cardiovascular: RRR, no murmur, no edema Gastrointestinal (Abdomen): normal bowel sounds, soft, nontender, no hepatosplenomegaly Musculoskeletal: Extremities: + extremities abnormal to inspection (right lateral thigh with sutures in place, open to air, no drainage/erythem) Psychiatric: Orientation: oriented x 3 and cooperative Results & Data Results & [facility] ([facility]) Vital Signs (Past 12 Hours) Vital Signs Temp Pulse Resp BP Pulse Ox O2 Del Method 11/04/22 06:57 36.7 C 64 16 143/65 H 95 Room Air 11/03/22 20:50 Room Air 11/03/22 20:05 36.4 C L 70 18 142/60 H 95 Room Air Laboratory Results 11/03/22 11/03/22 11/03/22 Range/Units 19:59 17:12 12:02 WBC (4.8-10.8) K/ul RBC (4.20-5.40) M/uL Hgb (12.0-16.0) g/dl Hct (37.0-47.0) % MCV (80.0-100.0) fL MCH (25.0-34.0) pg MCHC (32.0-36.0) g/dL RDW Std Deviation (36.4-46.3) fL RDW Coeff of Diya (11.5-14.5) % Plt Count (130-400) K/uL MPV (9.4-12.4) fL Sodium (136-145) mmol/L Potassium (3.5-5.1) mmol/L Chloride (98-107) mmol/L Carbon Dioxide (21-32) mmol/L Anion Gap (3-11) BUN (6-23) mg/dl Creatinine (0.6-1.2) mg/dl Est Cr Clr Drug Dosing ml/min Est GFR ( Amer) ml/min Est GFR (Non-Af Amer) ml/min BUN/Creatinine Ratio (10-20) Glucose (70-99(Fasting)) mg/dl POC Glucose 112 H 86 175 H (70-99) mg/dl Calcium (8.5-10.1) mg/dl Magnesium (1.7-2.4) mg/dl 11/03/22 11/03/22 11/03/22 Range/Units 08:31 08:31 08:14 WBC 7.14 (4.8-10.8) K/ul RBC 3.54 L (4.20-5.40) M/uL Hgb 11.2 L (12.0-16.0) g/dl Hct 33.6 L (37.0-47.0) % MCV 94.9 (80.0-100.0) fL MCH 31.6 (25.0-34.0) pg MCHC 33.3 (32.0-36.0) g/dL RDW Std Deviation 45.2 (36.4-46.3) fL RDW Coeff of Diya 13.0 (11.5-14.5) % Plt Count 217 (130-400) K/uL MPV 10.4 (9.4-12.4) fL Sodium 137 (136-145) mmol/L Potassium 4.3 (3.5-5.1) mmol/L Chloride 102 (98-107) mmol/L Carbon Dioxide 32 (21-32) mmol/L Anion Gap 3 (3-11) BUN 18 (6-23) mg/dl Creatinine 0.55 L (0.6-1.2) mg/dl Est Cr Clr Drug Dosing 66.1 ml/min Est GFR ( Amer) 99.1 ml/min Est GFR (Non-Af Amer) 85.5 ml/min BUN/Creatinine Ratio 32.7 H (10-20) Glucose 164 H (70-99(Fasting)) mg/dl POC Glucose 143 H (70-99) mg/dl Calcium 8.9 (8.5-10.1) mg/dl Magnesium 1.8 (1.7-2.4) mg/dl PG Care Time/CCT Total # of Minutes Spent Total Time Spent with Patient: Total time spent is greater than 50% in coordination of care (as documented) at patient's floor/unit and/or counseling patient: Coding Level of Care Code 09588 SUB INP/OBS CARE Diagnoses Periprosthetic fracture around internal prosthetic right hip joint, initial encounter M97.01XA Atrial fibrillation I48.0 Atrial fibrillation type: paroxysmal Osteoporosis M81.0 CHF (congestive heart failure) I50.9 Lumbar stenosis with neurogenic claudication M48.062 Hypertension I10 Hypertension type: essential hypertension Hyperlipidemia E78.5 Vitamin D deficiency E55.9 Stress incontinence in female N39.3 Peripheral neuropathy G62.9 Depression F32.9 Diabetes mellitus, type II E11.9 Sensorineural hearing loss (SNHL) of both ears H90.3 B12 deficiency E53.8 (2) Atrial fibrillation Atrial fibrillation type: paroxysmal Qualified Code(s): I48.0 - Paroxysmal atrial fibrillation (6) Hypertension Hypertension type: essential hypertension Qualified Code(s): I10 - Essential (primary) hypertension
--- NOTE | 2022-11-04 08:59 | Progress Notes ---
DATE OF NOTE: 11/04/2022 SUBJECTIVE: An 87-year-old female now postop day 6 from ORIF of right periprosthetic femur fracture. She is doing pretty well. No new complaints. Still having some pain. She has been mobilizing wit h a moderate amount of discomfort. OBJECTIVE: VITAL SIGNS: Temperature 36.7. Vital signs are stable. GENERAL: Shows a pleasant, elderly, frail female. She is lying in bed and looks comfortable this mo rning. EXTREMITIES: Examination of the right hip and leg reveals the incision to be well approximated. Neptali e moderate diffuse swelling and bruising. The leg lengths were equal. She can dorsiflex and plantar flex her foot appropriately. She is neurologically intact. ASSESSMENT: An 87-year-old female, now 6 days out from ORIF of right periprosthetic femur fracture. Orthopedically doing reasonably well. Having some pain, which is not unexpected. The leg is well a ligned. Wound looks to be healing appropriately. PLAN: 1. DVT prophylaxis including thigh-high TEDs, SCDs, and she is back on her Eliquis at 2.5 mg twice a day. 2. PT/OT. She can weight bear as tolerated in this right leg. 3. Pain control, doing okay with current pain regimen. I try and limit narcotics to avoid confusion issues. Tylenol may well be enough. 4. Medical management as per the medicine service. 5. Disposition: She is orthopedically okay for discharge any time. I need to see her back two to t hree weeks out from surgery date. Any orthopedic questions can be directed to me at [phone]. Job ID: [id number]
[2022-11-04] MEDS: METOPROLOL SUCC 50MG EXT REL TAB PO SCH ×2 (09:34→20:49)
[2022-11-04] MEDS: ASPIRIN 81 MG ECTAB PO SCH (09:34)
[2022-11-04] MEDS: DULoxetine HCL 20 MG CAP PO SCH (09:34)
[2022-11-04] MEDS: EZETIMIBE 10 MG TABLET PO SCH (09:35)
[2022-11-04] MEDS: DIGOXIN 0.125 MG TAB PO SCH (09:35)
[2022-11-04] MEDS: CHOLECALCIFEROL 1,000 UNITS 25 MCG TAB PO SCH ×2 (09:35→20:48)
[2022-11-04] MEDS: MAGNESIUM CHLORIDE W/CALCIUM 64MG DELAYED REL TAB PO SCH (09:35)
[2022-11-04] MEDS: CYANOCOBALAMIN (B-12) 500 MCG TABLET PO SCH (09:35)
[2022-11-04] MEDS: POLYETHYLENE (MIRALAX) 17 GM PACK PO SCH (09:43)
[2022-11-04] MEDS: INSULIN ASPART PER UNIT SC SCH ×4 (09:46→21:00)
[2022-11-04] MEDS: ACETAMINOPHEN 500 MG TAB PO SCH ×3 (09:46→20:48)
[2022-11-04] MEDS: ATORVASTATIN 20 MG TAB PO SCH (20:48)
[2022-11-04] MEDS: PREGABALIN 75 MG CAP PO SCH (20:49)
[2022-11-04] MEDS: DOCUSATE SODIUM/SENNA 50/8.6MG TAB PO SCH (20:55)
[2022-11-04] MEDS: LANTUS PER UNIT CHARGE SQ SCH (20:59)
[2022-11-05] MEDS: APIXABAN 2.5 MG TAB PO SCH ×2 (05:42→17:12)
[2022-11-05 08:08] LABS: BUN Creatinine Ratio 24.6 (10-20); Calcium 9.2 mg/dl (8.5-10.1); Creatinine Clr Calc Pharmacy 60.7 ml/min; Est GFR (African American) 95.8 ml/min; Est GFR (Non-African American) 82.7 ml/min; Magnesium 1.8 mg/dl (1.7-2.4); Potassium 4.4 mmol/L (3.5-5.1)
[2022-11-05] MEDS: METOPROLOL SUCC 50MG EXT REL TAB PO SCH ×2 (08:26→20:13)
[2022-11-05] MEDS: DULoxetine HCL 20 MG CAP PO SCH (08:26)
[2022-11-05] MEDS: CYANOCOBALAMIN (B-12) 500 MCG TABLET PO SCH (08:26)
[2022-11-05] MEDS: DIGOXIN 0.125 MG TAB PO SCH (08:26)
[2022-11-05] MEDS: MAGNESIUM CHLORIDE W/CALCIUM 64MG DELAYED REL TAB PO SCH (08:26)
[2022-11-05] MEDS: CHOLECALCIFEROL 1,000 UNITS 25 MCG TAB PO SCH ×2 (08:27→20:12)
[2022-11-05] MEDS: EZETIMIBE 10 MG TABLET PO SCH (08:27)
[2022-11-05] MEDS: oxyCODONE HCL IR 5 MG TAB (IMMEDIATE RELEASE) PO PRN ×2 (08:31→20:19)
[2022-11-05] MEDS: POLYETHYLENE (MIRALAX) 17 GM PACK PO SCH (08:32)
[2022-11-05] MEDS: ASPIRIN 81 MG ECTAB PO SCH (08:33)
[2022-11-05] MEDS: INSULIN ASPART PER UNIT SC SCH ×4 (08:35→21:28)
[2022-11-05] MEDS: ACETAMINOPHEN 500 MG TAB PO SCH ×3 (08:39→20:15)
[2022-11-05] MEDS ORDERED: MAGNESIUM SULFATE / D5W 1 GM/100 ML BAG IV ONE (09:39)
--- NOTE | 2022-11-05 14:49 | Hospitalist Progress Note ---
Date of Service November 05, 2022 Assessment & Plan (1) Periprosthetic fracture around internal prosthetic right hip joint, initial encounter: Plan: Closed right hip periprosthetic fracture- Secondary to mechanical fall Orthopedic surgery consultation appreciated-s/p ORIF with Dr. Emanuel on 10/29 with steel cable and multiple screws used for stabilization CBC with only minimal drop since preop down to 11.0, hemodynamically stable -continue oxycodone for pain -continue scheduled Tylenol 1000mg po tid -continue Eliquis 2.5mg po bid for DVT prophylaxis - PT/OT recommending rehab placement-awaiting insurance approval -continue Bowel regimen -straight cathed for urinary retention on 10/31-likely related to opioid use and immobility-now voiding without difficulty (2) Atrial fibrillation: Plan: With history of paroxysmal atrial fibrillation-was in sinus rhythm here with first-degree AV block, PACs but then developed rapid afib/flutter for 4-5 hours on 10/30 Spontaneously converted on 10/30 Again with some paroxysms of Afib on 10/31, asymptomatic Now remains in sinus rhythm since morning of 10/31 Continues t examine in NSR since being off tele monitoring Also has a history of nonsustained ventricular tachycardia during acute illness on previous hospitalizations many years ago -continue home digoxin, metoprolol succinate for rate control -continue apixaban for stroke prevention -Keep electrolytes replete- downgraded off tele 11/01 -additional 1gm IV mag on 11/05 and will continue PO magnesium (3) Osteoporosis: Plan: Osteoporotic fracture with fall from standing height vitamin D level here is excellent at 61 Continue vitamin D supplementation from home Follow-up with PCP for treatment for osteoporosis after recovery (4) CHF (congestive heart failure): Plan: Chronic diastolic CHF Most recent echocardiogram in our system is 2016 and shows mild LVH, LVEF greater than 70%, grade 1 diastolic dysfunction No evidence of volume overload Monitor I's and O's, daily weights Blood pressures are controlled (5) Lumbar stenosis with neurogenic claudication: Plan: Noted (6) Hypertension: Plan: Blood pressures are now normal can now restart amlodipine at a lower dose of 5mg daily (held for low normal BPs perioperatively) Continue home metoprolol specially with history of paroxysmal atrial fibrillation for rate control Monitor blood pressures (7) Hyperlipidemia: Plan: Continue atorvastatin 20 mg and Zetia (8) Vitamin D deficiency: Plan: Level good at 61 Continue home supplement (9) Stress incontinence in female: Plan: Hold home mirabegron 25 mg extended release daily until voiding consistently without retention (10) Peripheral neuropathy: Plan: continue home duloxetine and Lyrica (11) Depression: Plan: Continue duloxetine (12) Diabetes mellitus, type II: Plan: Hemoglobin A1c 8.4% glipizide is on home med list but daughter reports that she never started taking it-agree with avoidance of this given advanced age and possibility of hypoglycemia With some hyperglycemia here Added on Lantus 10u HS, tightened SSI 11/01 Monitor and tighten SSI as needed -- BSGS acceptable and much improved -- continue current regimen at d/c and can consider metformin as an outpatient in the future (13) Sensorineural hearing loss (SNHL) of both ears: Plan: Noted (14) B12 deficiency: Plan: continue home B12 supplement Not anemic prior to admission Plan DVT prophylaxis-SCDs, Eliquis Disposition- PT/OT consults recommend rehab placement. [facility] denied by insurance. Now accepted at [facility] and awaiting insurance auth. Hopeful for dc to SNF tomorrow Admission and Anticipated Discharge Date Admission Date: October 28, 2022 Anticipated date of discharge: 11/06/22 Subjective No complaints, doing well.Pain well controlled, moving bowels, eating. Physical Exam Constitutional: well developed; no acute distress Eyes: + anicteric sclerae Respiratory: normal respiratory effort, lungs clear to auscultation Cardiovascular: RRR, no murmur, no edema Gastrointestinal (Abdomen): normal bowel sounds, soft, nontender, no hepatosplenomegaly Musculoskeletal: Extremities: + extremities abnormal to inspection (right lateral thigh with incision intact,kalin in place) Psychiatric: Orientation: oriented x 3 and cooperative Results & Data Results & Data ([facility]) Vital Signs (Past 12 Hours) Vital Signs Temp Pulse Resp BP Pulse Ox O2 Del Method 11/05/22 07:33 36.8 C 62 18 144/67 H 93 Room Air PG Care Time/CCT Total # of Minutes Spent Total Time Spent with Patient: Total time spent is greater than 50% in coordination of care (as documented) at patient's floor/unit and/or counseling patient: Coding Level of Care Code 38731 SUB INP/OBS CARE 10/03MIN Diagnoses Periprosthetic fracture around internal prosthetic right hip joint, initial encounter M97.01XA Atrial fibrillation I48.0 Atrial fibrillation type: paroxysmal Osteoporosis M81.0 CHF (congestive heart failure) I50.9 Lumbar stenosis with neurogenic claudication M48.062 Hypertension I10 Hypertension type: essential hypertension Hyperlipidemia E78.5 Vitamin D deficiency E55.9 Stress incontinence in female N39.3 Peripheral neuropathy G62.9 Depression F32.9 Diabetes mellitus, type II E11.9 Sensorineural hearing loss (SNHL) of both ears H90.3 B12 deficiency E53.8 (2) Atrial fibrillation Atrial fibrillation type: paroxysmal Qualified Code(s): I48.0 - Paroxysmal atrial fibrillation (6) Hypertension Hypertension type: essential hypertension Qualified Code(s): I10 - Essential (primary) hypertension
[2022-11-05] MEDS: amLODIPine BESYLATE 5 MG TAB PO SCH (15:27)
[2022-11-05] MEDS: ATORVASTATIN 20 MG TAB PO SCH (20:12)
[2022-11-05] MEDS: DOCUSATE SODIUM/SENNA 50/8.6MG TAB PO SCH (20:15)
[2022-11-05] MEDS: PREGABALIN 75 MG CAP PO SCH (20:15)
[2022-11-05] MEDS: LANTUS PER UNIT CHARGE SQ SCH (21:29)
[2022-11-06] MEDS: APIXABAN 2.5 MG TAB PO SCH ×2 (06:06→16:42)
[2022-11-06] MEDS: CYANOCOBALAMIN (B-12) 500 MCG TABLET PO SCH (09:14)
[2022-11-06] MEDS: DIGOXIN 0.125 MG TAB PO SCH (09:14)
[2022-11-06] MEDS: MAGNESIUM CHLORIDE W/CALCIUM 64MG DELAYED REL TAB PO SCH (09:14)
[2022-11-06] MEDS: EZETIMIBE 10 MG TABLET PO SCH (09:15)
[2022-11-06] MEDS: METOPROLOL SUCC 50MG EXT REL TAB PO SCH ×2 (09:15→19:50)
[2022-11-06] MEDS: ASPIRIN 81 MG ECTAB PO SCH (09:15)
[2022-11-06] MEDS: amLODIPine BESYLATE 5 MG TAB PO SCH (09:15)
[2022-11-06] MEDS: CHOLECALCIFEROL 1,000 UNITS 25 MCG TAB PO SCH ×2 (09:15→19:50)
[2022-11-06] MEDS: DULoxetine HCL 20 MG CAP PO SCH (09:16)
[2022-11-06] MEDS: oxyCODONE HCL IR 5 MG TAB (IMMEDIATE RELEASE) PO PRN ×3 (09:17→21:06)
[2022-11-06] MEDS: ACETAMINOPHEN 500 MG TAB PO SCH ×3 (09:17→19:53)
[2022-11-06] MEDS: INSULIN ASPART PER UNIT SC SCH ×4 (09:43→21:07)
[2022-11-06] MEDS: POLYETHYLENE (MIRALAX) 17 GM PACK PO SCH (11:28)
--- NOTE | 2022-11-06 16:04 | Hospitalist Progress Note ---
Date of Service November 06, 2022 Assessment & Plan (1) Periprosthetic fracture around internal prosthetic right hip joint, initial encounter: Plan: Closed right hip periprosthetic fracture- Secondary to mechanical fall Orthopedic surgery consultation appreciated-s/p ORIF with Dr. Emanuel on 10/29 with steel cable and multiple screws used for stabilization CBC with only minimal drop since preop down to 11.0, hemodynamically stable -continue oxycodone for pain -continue scheduled Tylenol 1000mg po tid -continue Eliquis 2.5mg po bid for DVT prophylaxis - PT/OT recommending rehab placement-approved and awaiting transport from daughter tomorrow -continue Bowel regimen-moving bowels regularly -straight cathed for urinary retention on 10/31-likely related to opioid use and immobility-now voiding without difficulty (2) Atrial fibrillation: Plan: With history of paroxysmal atrial fibrillation-was in sinus rhythm here with first-degree AV block, PACs but then developed rapid afib/flutter for 4-5 hours on 10/30 Spontaneously converted on 10/30 Again with some paroxysms of Afib on 10/31, asymptomatic Now remains in sinus rhythm since morning of 10/31 Continues to examine in NSR since being off tele monitoring Also has a history of nonsustained ventricular tachycardia during acute illness on previous hospitalizations many years ago -continue home digoxin, metoprolol succinate for rate control -continue apixaban for stroke prevention -Keep electrolytes replete, continue po magnesium - downgraded off tele 11/01 (3) Osteoporosis: Plan: Osteoporotic fracture with fall from standing height vitamin D level here is excellent at 61 Continue vitamin D supplementation from home Follow-up with PCP for treatment for osteoporosis after recovery (4) CHF (congestive heart failure): Plan: Chronic diastolic CHF Most recent echocardiogram in our system is 2016 and shows mild LVH, LVEF greater than 70%, grade 1 diastolic dysfunction No evidence of volume overload Monitor I's and O's, daily weights Blood pressures are controlled (5) Lumbar stenosis with neurogenic claudication: Plan: Noted (6) Hypertension: Plan: BPs low perioperatively Blood pressures are now normal -restarted amlodipine at a lower dose of 5mg daily (held for low normal BPs perioperatively) Continue home metoprolol especially with history of paroxysmal atrial fibrillation for rate control Monitor blood pressures (7) Hyperlipidemia: Plan: Continue atorvastatin 20 mg and Zetia (8) Vitamin D deficiency: Plan: Level good at 61 Continue home supplement (9) Stress incontinence in female: Plan: Hold home mirabegron 25 mg extended release daily until voiding consistently without retention (10) Peripheral neuropathy: Plan: continue home duloxetine and Lyrica (11) Depression: Plan: Continue duloxetine (12) Diabetes mellitus, type II: Plan: Hemoglobin A1c 8.4% glipizide is on home med list but daughter reports that she never started taking it-agree with avoidance of this given advanced age and possibility of hypoglycemia With some hyperglycemia here Added on Lantus 10u HS, tightened SSI 11/01 Monitor and tighten SSI as needed -- BSGS acceptable and much improved -- continue current regimen at d/c and can add metformin as an outpatient at discharge (13) Sensorineural hearing loss (SNHL) of both ears: Plan: Noted (14) B12 deficiency: Plan: continue home B12 supplement Not anemic prior to admission Plan DVT prophylaxis-SCDs, Eliquis Disposition- PT/OT consults recommend rehab placement. [facility] denied by insurance. Now accepted at [facility] insurance auth came through-daughter can transport tomorrow Called daughter with update on 11/06 Admission and Anticipated Discharge Date Admission Date: October 28, 2022 Anticipated date of discharge: 11/07/22 Subjective Pt has no complaints. Pain is controlled, was OOB with therapy today. No CP, SOB, lightheadedness, nausea. Is moving bowels, eating. Physical Exam Constitutional: well developed; no acute distress Eyes: + anicteric sclerae Respiratory: normal respiratory effort, lungs clear to auscultation Cardiovascular: RRR, no murmur, no edema Gastrointestinal (Abdomen): normal bowel sounds, soft, nontender, no hepatosplenomegaly Musculoskeletal: Extremities: + extremities abnormal to inspection Psychiatric: Orientation: oriented x 3 and cooperative Results & Data Results & Data ([facility]) Vital Signs (Past 12 Hours) Vital Signs Temp Pulse Resp BP Pulse Ox O2 Del Method 11/06/22 15:00 36.4 C L 57 L 18 116/61 97 Room Air 11/06/22 11:27 36.4 C L 66 18 101/56 L 97 Room Air 11/06/22 07:37 36.6 C 62 20 151/63 H 95 Room Air PG Care Time/CCT Total # of Minutes Spent Total Time Spent with Patient: Total time spent is greater than 50% in coordination of care (as documented) at patient's floor/unit and/or counseling patient: Coding Level of Care Code 40901 SUB INP/OBS CARE Diagnoses Periprosthetic fracture around internal prosthetic right hip joint, initial encounter M97.01XA Atrial fibrillation I48.0 Atrial fibrillation type: paroxysmal Osteoporosis M81.0 CHF (congestive heart failure) I50.9 Lumbar stenosis with neurogenic claudication M48.062 Hypertension I10 Hypertension type: essential hypertension Hyperlipidemia E78.5 Vitamin D deficiency E55.9 Stress incontinence in female N39.3 Peripheral neuropathy G62.9 Depression F32.9 Diabetes mellitus, type II E11.9 Sensorineural hearing loss (SNHL) of both ears H90.3 B12 deficiency E53.8 (2) Atrial fibrillation Atrial fibrillation type: paroxysmal Qualified Code(s): I48.0 - Paroxysmal atrial fibrillation (6) Hypertension Hypertension type: essential hypertension Qualified Code(s): I10 - Essential (primary) hypertension
[2022-11-06] MEDS: ATORVASTATIN 20 MG TAB PO SCH (19:49)
[2022-11-06] MEDS: DOCUSATE SODIUM/SENNA 50/8.6MG TAB PO SCH (19:53)
[2022-11-06] MEDS: PREGABALIN 75 MG CAP PO SCH (19:54)
[2022-11-06] MEDS: LANTUS PER UNIT CHARGE SQ SCH (21:07)
[2022-11-07] MEDS: APIXABAN 2.5 MG TAB PO SCH (05:44)
[2022-11-07] MEDS: CYANOCOBALAMIN (B-12) 500 MCG TABLET PO SCH (09:07)
[2022-11-07] MEDS: INSULIN ASPART PER UNIT SC SCH (09:07)
[2022-11-07] MEDS: METOPROLOL SUCC 50MG EXT REL TAB PO SCH (09:07)
[2022-11-07] MEDS: MAGNESIUM CHLORIDE W/CALCIUM 64MG DELAYED REL TAB PO SCH (09:07)
[2022-11-07] MEDS: ASPIRIN 81 MG ECTAB PO SCH (09:08)
[2022-11-07] MEDS: CHOLECALCIFEROL 1,000 UNITS 25 MCG TAB PO SCH (09:08)
[2022-11-07] MEDS: DULoxetine HCL 20 MG CAP PO SCH (09:08)
[2022-11-07] MEDS: amLODIPine BESYLATE 5 MG TAB PO SCH (09:08)
[2022-11-07] MEDS: DIGOXIN 0.125 MG TAB PO SCH (09:08)
[2022-11-07] MEDS: ACETAMINOPHEN 500 MG TAB PO SCH (09:20)
[2022-11-07] MEDS: POLYETHYLENE (MIRALAX) 17 GM PACK PO SCH (09:20)
[2022-11-07] MEDS: EZETIMIBE 10 MG TABLET PO SCH (09:34)
--- NOTE | 2022-11-07 11:02 | Discharge Summary ---
Date of Service November 07, 2022 Admission HPI Per Admitting Provider The patient is an 87-year-old female with a past medical history including SNHL bilaterally, osteoporosis, atrial fibrillation, CHF, lumbar stenosis with neurogenic claudication, V. tach, hypertension, hyperlipidemia, vitamin D deficiency, urinary stress incontinence, polycythemia Pat, peripheral neuropathy, overactive bladder, neurologic gait dysfunction, diabetes mellitus type 2, bilateral carotid artery stenosis, depression, psoriasis, long-term anticoagulation, and first-degree AV block. The patient presents to the emergency department with complaint of right hip and thigh pain after mechanical fall as noted above. X-rays in the emergency department showed a right femoral shaft periprosthetic fracture. Significant laboratories: Potassium 2.9, glucose 183, albumin 3.3, calcium 6.6. Patient was COVID-19 negative In ED patient received the following: Morphine 1 mg and 2 mg IV, Tylenol 1 g IV, potassium chloride 10 mill equivalent K rider, NSS at 150 mils per hour Principal Diagnosis Right hip periprosthetic fracture Discharge Exam Constitutional well developed; no acute distress Eyes + anicteric sclerae Respiratory normal respiratory effort, lungs clear to auscultation Cardiovascular RRR, no murmur, no edema Gastrointestinal (Abdomen) normal bowel sounds, soft, nontender, no hepatosplenomegaly Musculoskeletal Extremities: + extremities abnormal to inspection Psychiatric Orientation: oriented x 3 and cooperative Discharge Data Allergies Allergy/AdvReac Type Severity Reaction Status Date / Time amoxicillin Allergy Intermediate RASH Verified 10/28/22 20:59 Penicillins Allergy Intermediate RASH Verified 10/28/22 20:59 pravastatin Allergy Intermediate MYALGIA Verified 10/28/22 20:59 simvastatin Allergy Intermediate MYALGIA Verified 10/28/22 20:59 Consultations 10/28/22 19:08 ED Decision to Admit Stat 10/28/22 21:58 Consult Orthopedic Surgery Routine Procedures Performed Operation Date: 10/29/22 11:50 Actual Procedures p Right Open Reduction Internal Fixation Right Hip Fracutre(Right) - El Emanuel MD Ordered Studies 10/28/22 17:46 CT head/brain wo con Stat 10/29/22 [place] hip RT 2-3V Routine Hospital Course (1) Periprosthetic fracture around internal prosthetic right hip joint, initial encounter: Closed right hip periprosthetic fracture- Secondary to mechanical fall Orthopedic surgery consultation appreciated-s/p ORIF with Dr. Emanuel on 10/29 with steel cable and multiple screws used for stabilization CBC with only minimal drop since preop down to 11.0, hemodynamically stable -continue oxycodone for pain -continue scheduled Tylenol 1000mg po tid -continue Eliquis 2.5mg po bid for DVT prophylaxis - PT/OT recommending rehab placement -continue Bowel regimen-moving bowels regularly -straight cathed for urinary retention on 10/31-likely related to opioid use and immobility-now voiding without difficulty (2) Atrial fibrillation: With history of paroxysmal atrial fibrillation-was in sinus rhythm here with first-degree AV block, PACs but then developed rapid afib/flutter for 4-5 hours on 10/30 Spontaneously converted on 10/30 Again with some paroxysms of Afib on 10/31, asymptomatic Now remains in sinus rhythm since morning of 10/31 Continues to examine in NSR since being off tele monitoring Also has a history of nonsustained ventricular tachycardia during acute illness on previous hospitalizations many years ago -continue home digoxin, metoprolol succinate for rate control -continue apixaban for stroke prevention -Keep electrolytes replete, continue po magnesium - downgraded off tele 11/01 (3) Osteoporosis: Osteoporotic fracture with fall from standing height vitamin D level here is excellent at 61 Continue vitamin D supplementation from home Follow-up with PCP for treatment for osteoporosis after recovery (4) CHF (congestive heart failure): Chronic diastolic CHF Most recent echocardiogram in our system is 2016 and shows mild LVH, LVEF greater than 70%, grade 1 diastolic dysfunction No evidence of volume overload Monitor I's and O's, daily weights Blood pressures are controlled (5) Lumbar stenosis with neurogenic claudication: Noted (6) Hypertension: BPs low perioperatively Blood pressures are now normal -restarted amlodipine at a lower dose of 5mg daily (held for low normal BPs perioperatively) Continue home metoprolol especially with history of paroxysmal atrial fibrillation for rate control Monitor blood pressures (7) Hyperlipidemia: Continue atorvastatin 20 mg and Zetia (8) Vitamin D deficiency: Level good at 61 Continue home supplement (9) Stress incontinence in female: Hold home mirabegron 25 mg extended release daily until voiding consistently without retention-can restart on discharge (10) Peripheral neuropathy: continue home duloxetine and Lyrica (11) Depression: Continue duloxetine (12) Diabetes mellitus, type II: Hemoglobin A1c 8.4% glipizide is on home med list but daughter reports that she never started taking it-agree with avoidance of this given advanced age and possibility of hypoglycemia With some hyperglycemia here post-op from stress Added on Lantus 10u HS BSGS acceptable and much improved -- add metformin as an outpatient at discharge 500mg XR one daily (13) Sensorineural hearing loss (SNHL) of both ears: Noted (14) B12 deficiency: continue home B12 supplement Not anemic prior to admission Plan DVT prophylaxis-SCDs, Eliquis Disposition- PT/OT consults recommend rehab placement. dc there today Called daughter with update on 11/06 Total Time Total Time Spent Total Time Spent (In Minutes): 35 min Discharge Plan Discharge Items Patient Disposition: Transfer Care Home Fac Reason For Visit: FALL, PERIPROSTHETIC HIP FX Discharge Diagnosis: ORIF Right Periprosthetic Femur Fracture Condition on Discharge: Good Activity: As commented below Weightbearing: Full weightbearing Weightbearing Comment: May weightbear as tolerated on right leg Non-emergency contact: Primary Care Provider and Surgeon Call non-emergency contact if: you have any medication questions, your symptoms worsen, you have a fever, your wound has increased redness, your wound has increased drainage and your wound pain has increased Follow-up/Referrals: Preston Moreno MD [Primary Care Provider] - El Emanuel MD [Physician] - (Orthopedic follow-up 2-3 weeks from surgery date.) Diet: Carb Consistent or DM2 and Heart Healthy Addtl Attending Provider Instructions: You were admitted for a hip fracture which was repaired. Please continue to take pain medicine as needed. Your amlodipine dose was lowered down to 5mg daily but if your blood pressures become elevated, this can be increased back to your usual dose of 10mg daily. You were started on metformin for your diabetes. Pending Studies at Discharge: No Stand-Alone Forms: My [facility] Skilled Items Patient informed of condition?: Yes DNR: No Discharge Level of Care: Skilled Communicable Disease: No Discharge Prognosis: Improving Lines: None Urinary Catheter: No Medications and DC Order Prescriptions: New amlodipine [Norvasc] 5 mg Tablet 5 mg PO QAM Qty: 30 0RF acetaminophen [Tylenol Extra Strength] 500 mg Tablet 1,000 mg PO TID Qty: 180 0RF oxycodone 5 mg Tablet 5 mg PO Q4H PRN (Reason: moderate-severe pain) Qty: 15 0RF polyethylene glycol 3350 [Miralax] 17 gram Powder In Packet 17 g PO DAILY Qty: 30 0RF Mag 64 64 mg Tablet,Delayed Release (Dr/Ec) 64 mg PO QAM Qty: 30 0RF insulin glargine [Lantus U-100 Insulin] 100 unit/mL Solution 10 unit subcut HS Qty: 10 0RF metformin 500 mg tablet extended release 24hr 500 mg PO DAILY Qty: 30 0RF Continued Myrbetriq 25 mg tablet extended release 24 hr 25 mg PO DAILY Qty: 90 3RF ezetimibe 10 mg tablet 10 mg PO QAM Qty: 90 3RF digoxin [Digox] 125 mcg (0.125 mg) tablet 125 mcg PO QAM Qty: 90 3RF Eliquis 2.5 mg tablet 2.5 mg PO BID Qty: 180 3RF atorvastatin 20 mg tablet 20 mg PO HS Qty: 90 3RF duloxetine 20 mg capsule,delayed release(DR/EC) 20 mg PO QAM Qty: 90 3RF pregabalin [Lyrica] 75 mg capsule 75 mg PO HS Qty: 90 0RF metoprolol succinate 100 mg tablet extended release 24 hr 100 mg PO BID Qty: 180 3RF cyanocobalamin (vitamin B-12) [Vitamin B-12] 1,000 mcg Tablet 1,000 mcg PO QAM sennosides-docusate sodium [Senna-S] 8.6-50 mg Tablet 1 tab PO BID cholecalciferol (vitamin D3) [Vitamin D3] 1,000 unit capsule 1,000 units PO BID aspirin [Aspirin Low-Strength] 81 mg Tablet,Delayed Release (Dr/Ec) 81 mg PO DAILY calcium carbonate-vitamin D3 [Calcium 600 + D(3)] 600 mg-10 mcg (400 unit) Tablet 1 tab PO QAM Discontinued amlodipine 10 mg tablet 10 mg PO DAILY Qty: 90 3RF glipizide 2.5 mg tablet extended release 24 hr 2.5 mg PO DAILY Qty: 90 3RF Discharge Orders: Discharge Order (Routine); Ordered 11/07/22 Ordered By: Jenn Dunbar/Other Patient Handouts: High Blood Sugar (Hyperglycemia), Hypoglycemia (Low Blood Sugar), Managing Type 2 Diabetes Admission Data Admit Date/Time: 10/28/22 20:18 Attending Provider: Jenn Flores Admit Provider: Shashi Perez Primary Care Provider: Preston Moreno Other Providers: [facility] ; Shashi Perez ; El Emanuel Coding Level of Care Code 18074 INP/OBS DISCH >30 MIN Diagnoses Periprosthetic fracture around internal prosthetic right hip joint, initial encounter M97.01XA Atrial fibrillation I48.0 Atrial fibrillation type: paroxysmal Osteoporosis M81.0 CHF (congestive heart failure) I50.9 Lumbar stenosis with neurogenic claudication M48.062 Hypertension I10 Hypertension type: essential hypertension Hyperlipidemia E78.5 Vitamin D deficiency E55.9 Stress incontinence in female N39.3 Peripheral neuropathy G62.9 Depression F32.9 Diabetes mellitus, type II E11.9 Sensorineural hearing loss (SNHL) of both ears H90.3 B12 deficiency E53.8
[2022-11-07] MEDS: oxyCODONE HCL IR 5 MG TAB (IMMEDIATE RELEASE) PO PRN (11:18)
--- NOTE | 2022-11-07 11:34 | Progress Notes ---
DATE OF SERVICE: 11/07/2022. SUBJECTIVE: An 87-year-old white female, now 9 days out from ORIF of right periprosthetic femur frac ture. She is doing pretty well. She is being discharged today. No new complaints. Pain seems to b e pretty manageable. OBJECTIVE: VITAL SIGNS: Temperature 36.7. Vital signs are stable. GENERAL: Physical examination shows a pleasant, elderly female. She is sitting up in her bedside ch air, looks quite comfortable and spry this morning. EXTREMITIES: Examination of the right hip reveals the incision to be well approximated and intact. There is no drainage. Leg lengths are equal. Thigh is soft and supple. She is neurologically intac t. ASSESSMENT: An 87-year-old white female, now 9 days out from ORIF of right periprosthetic femur frac ture, doing well. She ____ planning on being discharged today. PLAN: 1. DVT prophylaxis including thigh-high TEDs, SCDs, and she is back on her Eliquis dose. 2. PT/OT, weight bear as tolerated. Total hip precautions. 3. Pain control, doing okay with current pain regimen. 4. Medical management as per the medicine service. 5. Disposition: She is orthopedically okay for discharge any time arrangements are made. She is [place] pposed to be going home today. She will follow back in my clinic 2-3 weeks out from surgery date. Swapna moscoso orthopedic questions can be directed to me at [phone]. Job ID: [id number]
== END 2022-11-07 12:12 | DRG 481 ==
LOC: ED 17:30 → 2E 20:18 → SUATTDRO 20:18 → 2E 21:34 → 2N 10-30 21:04 → 3N 11-01 18:50

== ENCOUNTER 2023-11-25 10:36 | Inpatient (IN) ==
--- NOTE | 2023-11-25 11:09 | Emergency Department Note ---
Impression & Plan Hypoxia ADMIT ED Provider Note HPI: History obtained from patient. The patient is a 88-year-old female with history of prior CVA, atrial fibrillation on anticoagulation, type 2 diabetes, who presents emergency department with chief complaint of shortness of breath. Patient states that she has had the symptoms for about the past 2 weeks. 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 On arrival here to the ED the patient was noted to be hypoxic at 87% on room air and was placed on supplemental oxygen with a nonrebreather mask with good improvement. Patient denies any chest pain, she is otherwise in no acute distress on my initial assessment. ROS: - Per HPI Differential Diagnosis: Exacerbation with hypoxia, COPD exacerbation, pneumonia, viral upper respiratory infection, acute coronary syndrome, pulmonary embolism, amongst other potential pathologies. *Outpatient medications and allergy history reviewed. 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 Lab work shows no leukocytosis, hemoglobin is normal, platelet count is normal, CMP does not show any critical findings. Venous blood gas shows normal pH. Troponin is mildly elevated at 14.2, BNP is elevated at 538, chest x-ray shows a pattern of pulmonary edema and fluid overload with bilateral lower airspace opacities. Patient is nonrebreather mask was weaned to 5 L nasal cannula oxygen and on my reassessment she is satting at 93% on nasal cannula. Patient was ordered IV Lasix over suspicion for fluid overload/pulmonary edema as the source of her hypoxia. I discussed the patient's lab work and imaging results with her daughter who later arrived at the bedside. She is in agreement for admission at this time given the patient's hypoxia and concern for CHF. Low suspicion for ACS given lack of any chest pain, low suspicion for PE as the patient is anticoagulated. Case was discussed with the on-call hospitalist, Dr. Vasquez, and the patient was placed for admission in stable condition. Consultants/Discussions held with other healthcare providers: -Hospitalist, Dr. Vasquez Disposition discussion held by myself with: -Patient and daughter at bedside * CRITICAL CARE TIME: ( 38 ) minutes -Stabilization of hypoxia with oxygen saturations as low as 79% on room air requiring supplemental oxygen for correction, time spent at the bedside, interpretation of diagnostic studies, discussion with other healthcare providers and arrangement of admission Diagnosis: 1. Acute CHF exacerbation with hypoxia 2. Pulmonary edema 3. Elevated BNP 4. Elevated high-sensitivity troponin Disposition: Admission Willie Montana DO Emergency Medicine Past Med/Surg History Medical History Periprosthetic fracture around internal prosthetic right hip joint, initial encounter (10/28/22) Periprosthetic fracture around internal prosthetic right hip joint from a fall History of CVA with residual deficit Acute ischemic stroke Allergic rhinitis due to pollen Bilateral carotid artery stenosis Cystocele, midline Depression Diabetes mellitus type II, controlled Disc degeneration, lumbar Dysphasia following cerebrovascular accident (CVA) Expressive aphasia Hemorrhoids Lumbar radiculopathy Microscopic hematuria Neurologic gait dysfunction On continuous oral anticoagulation Overactive bladder Peripheral neuropathy Polycythemia Primary localized osteoarthrosis of the hip Stress incontinence in female Vitamin D deficiency Hypertension Fall Hip fracture V tach Lumbar stenosis with neurogenic claudication (03/16/14) CHF (congestive heart failure) (03/19/14) Atrial fibrillation Osteoporosis Surgical History S/P appendectomy S/P lumbar laminectomy S/P cataract surgery S/P total hip arthroplasty Family History Grandfather Coronary heart disease Mother Coronary heart disease Sister Diabetes Father Coronary heart disease Other Family history non-contributory Denies family history of Ovarian cancer Prostate cancer Myocardial infarction Breast cancer Colorectal cancer Social History Smoking Status: Never smoker Second Hand Exposure: No; Do You Dip or Chew Tobacco: No; Hx Alcohol Use: No Hx Substance Use: No Preferred Language: Faroese Communication Ability: Effective Visual Impairment: No Limitations Hearing Ability: Use of Hearing Aid Construction Specialist Required: No Beliefs That Will Affect Care: None marital status: Current Living Situation: Alone Current Living Situation Comment: her lives in [facility], she has a life alert that she wears at home current occupational status: retired 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 How many Children do You have: 1 Feels Safe at Home: Yes Childhood Exposure to Second-Hand Smoke: No Diet: regular caffeine: Yes during the past year weight has: remained stable Dental Care, Regularly: Yes Physical Activity Frequency: 1-2 Times per Week Seatbelt Use: always Sunscreen Use: Yes Assistive Devices: Cane, Walker and Wheelchair Allergies Allergies Allergy/AdvReac Type Severity Reaction Status Date / Time amoxicillin Allergy Intermediate RASH Verified 08/28/23 10:59 Penicillins Allergy Intermediate RASH Verified 08/28/23 10:59 pravastatin Allergy Intermediate MYALGIA Verified 08/28/23 10:59 simvastatin Allergy Intermediate MYALGIA Verified 08/28/23 10:59 dulaglutide [From Trulicity] AdvReac Intermediate Vomiting Verified 08/28/23 10:59 Home Meds Home Medications Medication Instructions Recorded Confirmed cyanocobalamin (vitamin B-12) 1,000 mcg PO QAM 01/27/19 11/25/23 1,000 mcg tablet (Vitamin B-12) sennosides 8.6 mg-docusate sodium 1 tab PO BID 01/27/19 11/25/23 50 mg tablet (Senna-S) cholecalciferol (vitamin D3) 25 1,000 units PO BID 03/02/19 11/25/23 mcg (1,000 unit) capsule (Vitamin D3) aspirin 81 mg tablet,delayed 81 mg PO QAM 10/28/22 11/25/23 release calcium carbonate 600 mg-vitamin 1 tab PO HS 11/06/22 11/25/23 D3 10 mcg (400 unit) tablet (Calcium 600 + D(3)) acetaminophen 500 mg tablet 1,000 mg PO TID PRN Pain 12/20/23 03/18/24 (Tylenol Extra Strength) polyethylene glycol 3350 17 gram 17 g PO DAILY PRN Constipation 08/28/23 11/25/23 oral powder packet (Miralax) betamethasone dipropionate 0.05 % 1 applic topical UD PRN Other 11/25/23 11/25/23 topical cream mirabegron 25 mg tablet,extended 25 mg PO QAM 11/25/23 11/25/23 release 24 hr (Myrbetriq) Previous Rx's Medication Instructions Recorded blood-glucose meter (OneTouch #1 ea 11/27/22 Ultra2 Meter) oxycodone 5 mg tablet 5 mg PO Q4H PRN moderate-severe 12/11/22 pain #30 tabs pen needle, diabetic 31 gauge x #10 ea 12/11/2201/22" (BD Ultra-Fine Short Pen Needle) blood sugar diagnostic (OneTouch #300 ea 12/24/22 Ultra Test strips) lancets 33 gauge (OneTouch Delica #300 ea 12/24/22 Lancets) atorvastatin 20 mg tablet 20 mg PO HS #90 tabs 03/13/23 duloxetine 20 mg capsule,delayed 20 mg PO QAM #90 caps 03/13/23 release apixaban 2.5 mg tablet (Eliquis) 2.5 mg PO BID #180 tabs 05/09/23 pregabalin 75 mg capsule (Lyrica) 75 mg PO HS #90 caps 07/29/23 metformin 500 mg tablet,extended 500 mg PO DAILY #90 tabs 08/07/23 release 24hr (osmotic) digoxin 125 mcg (0.125 mg) tablet 125 mcg PO .COMPLEX #65 tabs 08/28/23 (Digox) metoprolol succinate 100 mg 100 mg PO BID #180 tabs 09/23/23 tablet,extended release 24 hr amlodipine 5 mg tablet (Norvasc) 5 mg PO QAM #90 tabs 11/18/23 Results & Data (ED) Vital Signs Vital Signs - 24 hr 11/25/23 10:43 11/25/23 10:49 11/25/23 10:53 Temperature 36.8 C Temperature Source Oral Pulse Rate 73 72 Pulse Rate [Apical] Pulse Rate from SpO2 Sensor 71 Pulse Rhythm Regular Pulse Rhythm [Apical] Pulse Strength Normal Respiratory Rate 27 H 26 H Blood Pressure 144/96 H Blood Pressure [Left Arm] Blood Pressure Mean 112 Blood Pressure Mean [Left Arm] Blood Pressure Position Sitting Pulse Oximetry 92 87 L 95 Oxygen Delivery Method Nasal Cannula Room Air Oxygen Flow Rate 3 Sepsis Recent Fever Within 48 Hours No Sepsis New/Unexplained Change in Mental Status No Sepsis Action Taken by Nursing No Action Required Oxygen Flow Rate - Titration 3 Pulse Oximetry Post Tiitration 92 11/25/23 10:58 11/25/23 11:00 11/25/23 11:01 Temperature Temperature Source Pulse Rate 68 71 74 Pulse Rate [Apical] Pulse Rate from SpO2 Sensor 68 73 Pulse Rhythm Pulse Rhythm [Apical] Pulse Strength Respiratory Rate 27 H 22 Blood Pressure Blood Pressure [Left Arm] Blood Pressure Mean Blood Pressure Mean [Left Arm] Blood Pressure Position Pulse Oximetry 100 88 L Oxygen Delivery Method Oxygen Flow Rate Sepsis Recent Fever Within 48 Hours Sepsis New/Unexplained Change in Mental Status Sepsis Action Taken by Nursing Oxygen Flow Rate - Titration Pulse Oximetry Post Tiitration 11/25/23 11:01 11/25/23 11:10 11/25/23 11:10 Temperature Temperature Source Pulse Rate 74 Pulse Rate [Apical] Pulse Rate from SpO2 Sensor 75 Pulse Rhythm Pulse Rhythm [Apical] Pulse Strength Respiratory Rate 23 Blood Pressure 159/108 H 138/100 Blood Pressure [Left Arm] Blood Pressure Mean 141 116 Blood Pressure Mean [Left Arm] Blood Pressure Position Pulse Oximetry 93 Oxygen Delivery Method Oxygen Flow Rate Sepsis Recent Fever Within 48 Hours Sepsis New/Unexplained Change in Mental Status Sepsis Action Taken by Nursing Oxygen Flow Rate - Titration Pulse Oximetry Post Tiitration 11/25/23 11:10 11/25/23 11:12 11/25/23 11:20 Temperature Temperature Source Pulse Rate 59 L Pulse Rate [Apical] 63 Pulse Rate from SpO2 Sensor 101 H 69 Pulse Rhythm Pulse Rhythm [Apical] Irregular Pulse Strength Respiratory Rate 24 29 H Blood Pressure Blood Pressure [Left Arm] 159/108 H Blood Pressure Mean Blood Pressure Mean [Left Arm] 125 Blood Pressure Position Pulse Oximetry 99 93 94 Oxygen Delivery Method Non-rebreather Oxygen Flow Rate 12 Sepsis Recent Fever Within 48 Hours Sepsis New/Unexplained Change in Mental Status Sepsis Action Taken by Nursing Oxygen Flow Rate - Titration Pulse Oximetry Post Tiitration 11/25/23 11:30 11/25/23 11:30 11/25/23 11:30 Temperature Temperature Source Pulse Rate 80 Pulse Rate [Apical] Pulse Rate from SpO2 Sensor 76 106 H Pulse Rhythm Pulse Rhythm [Apical] Pulse Strength Respiratory Rate 20 Blood Pressure 155/84 H Blood Pressure [Left Arm] Blood Pressure Mean 113 Blood Pressure Mean [Left Arm] Blood Pressure Position Pulse Oximetry 95 90 Oxygen Delivery Method Oxygen Flow Rate Sepsis Recent Fever Within 48 Hours Sepsis New/Unexplained Change in Mental Status Sepsis Action Taken by Nursing Oxygen Flow Rate - Titration Pulse Oximetry Post Tiitration 11/25/23 11:30 11/25/23 11:40 11/25/23 11:50 Temperature Temperature Source Pulse Rate 64 Pulse Rate [Apical] Pulse Rate from SpO2 Sensor 68 90 Pulse Rhythm Pulse Rhythm [Apical] Pulse Strength Respiratory Rate 24 Blood Pressure 155/84 H Blood Pressure [Left Arm] Blood Pressure Mean 113 Blood Pressure Mean [Left Arm] Blood Pressure Position Pulse Oximetry 95 85 L Oxygen Delivery Method Oxygen Flow Rate Sepsis Recent Fever Within 48 Hours Sepsis New/Unexplained Change in Mental Status Sepsis Action Taken by Nursing Oxygen Flow Rate - Titration Pulse Oximetry Post Tiitration 11/25/23 12:00 11/25/23 12:10 11/25/23 12:20 Temperature Temperature Source Pulse Rate 82 78 67 Pulse Rate [Apical] Pulse Rate from SpO2 Sensor 78 81 74 Pulse Rhythm Pulse Rhythm [Apical] Pulse Strength Respiratory Rate 19 24 24 Blood Pressure Blood Pressure [Left Arm] Blood Pressure Mean Blood Pressure Mean [Left Arm] Blood Pressure Position Pulse Oximetry 79 L 92 92 Oxygen Delivery Method Oxygen Flow Rate Sepsis Recent Fever Within 48 Hours Sepsis New/Unexplained Change in Mental Status Sepsis Action Taken by Nursing Oxygen Flow Rate - Titration Pulse Oximetry Post Tiitration 11/25/23 12:30 11/25/23 12:30 11/25/23 12:40 Temperature Temperature Source Pulse Rate 69 63 Pulse Rate [Apical] Pulse Rate from SpO2 Sensor 70 66 Pulse Rhythm Pulse Rhythm [Apical] Pulse Strength Respiratory Rate 24 25 H Blood Pressure 151/72 H Blood Pressure [Left Arm] Blood Pressure Mean 97 Blood Pressure Mean [Left Arm] Blood Pressure Position Pulse Oximetry 85 L 92 Oxygen Delivery Method Oxygen Flow Rate Sepsis Recent Fever Within 48 Hours Sepsis New/Unexplained Change in Mental Status Sepsis Action Taken by Nursing Oxygen Flow Rate - Titration Pulse Oximetry Post Tiitration 11/25/23 12:50 11/25/23 13:00 11/25/23 13:01 Temperature Temperature Source Pulse Rate 66 65 Pulse Rate [Apical] Pulse Rate from SpO2 Sensor 68 66 Pulse Rhythm Pulse Rhythm [Apical] Pulse Strength Respiratory Rate 25 H 20 Blood Pressure 155/85 H Blood Pressure [Left Arm] Blood Pressure Mean 92 Blood Pressure Mean [Left Arm] Blood Pressure Position Pulse Oximetry 94 76 L Oxygen Delivery Method Oxygen Flow Rate Sepsis Recent Fever Within 48 Hours Sepsis New/Unexplained Change in Mental Status Sepsis Action Taken by Nursing Oxygen Flow Rate - Titration Pulse Oximetry Post Tiitration 11/25/23 13:01 11/25/23 13:10 11/25/23 13:20 Temperature Temperature Source Pulse Rate 72 58 L 64 Pulse Rate [Apical] Pulse Rate from SpO2 Sensor 68 60 75 Pulse Rhythm Pulse Rhythm [Apical] Pulse Strength Respiratory Rate 21 25 H 25 H Blood Pressure Blood Pressure [Left Arm] Blood Pressure Mean Blood Pressure Mean [Left Arm] Blood Pressure Position Pulse Oximetry 95 88 L 90 Oxygen Delivery Method Oxygen Flow Rate Sepsis Recent Fever Within 48 Hours Sepsis New/Unexplained Change in Mental Status Sepsis Action Taken by Nursing Oxygen Flow Rate - Titration Pulse Oximetry Post Tiitration 11/25/23 13:30 11/25/23 13:30 11/25/23 13:40 Temperature Temperature Source Pulse Rate 71 71 Pulse Rate [Apical] Pulse Rate from SpO2 Sensor 70 79 Pulse Rhythm Pulse Rhythm [Apical] Pulse Strength Respiratory Rate 23 20 Blood Pressure 133/94 Blood Pressure [Left Arm] Blood Pressure Mean 113 Blood Pressure Mean [Left Arm] Blood Pressure Position Pulse Oximetry 93 90 Oxygen Delivery Method Oxygen Flow Rate Sepsis Recent Fever Within 48 Hours Sepsis New/Unexplained Change in Mental Status Sepsis Action Taken by Nursing Oxygen Flow Rate - Titration Pulse Oximetry Post Tiitration Laboratory Data 11/25/23 10:48 11/25/23 12:19 Lab Results 11/25/23 11/25/23 11/25/23 Range/Units 10:48 11:27 12:00 WBC 6.65 (4.8-10.8) K/ul RBC 4.10 L (4.20-5.40) M/uL Hgb 13.2 (12.0-16.0) g/dl Hct 41.7 (37.0-47.0) % MCV 101.7 H (80.0-100.0) fL MCH 32.2 (25.0-34.0) pg MCHC 31.7 L (32.0-36.0) g/dL RDW Std Deviation 59.7 H (36.4-46.3) fL RDW Coeff of Diya 16.1 H (11.5-14.5) % Plt Count 174 (130-400) K/uL MPV 10.9 (9.4-12.4) fL Immature Gran % (Auto) 0.3 % Neut % (Auto) 68.7 % Lymph % (Auto) 15.6 % [place] % (Auto) 12.8 % Eos % (Auto) 1.8 % Baso % (Auto) 0.8 % Neut # (Auto) 4.57 (1.40-6.50) K/uL Lymph # (Auto) 1.04 L (1.20-3.40) K/uL [place] # (Auto) 0.85 H (0.11-0.59) K/uL Eos # (Auto) 0.12 (0.00-0.50) K/uL Baso # (Auto) 0.05 (0.00-0.20) K/uL Immature Gran # (Auto) 0.02 (0.01-0.20) K/uL PT Cancelled INR Cancelled VBG pH 7.36 (7.36-7.41) VBG pCO2 55 H (38-50) mmHg VBG pO2 < 20 mmHg VBG HCO3 31 mmol/L VBG O2 Saturation < 60.0 % VBG Base Excess 4.3 mEq/L Sodium Cancelled Potassium Cancelled Chloride Cancelled Carbon Dioxide Cancelled Anion Gap Cancelled BUN Cancelled Creatinine Cancelled Est Cr Clr Drug Dosing Cancelled Est GFR ( Amer) Cancelled Est GFR (Non-Af Amer) Cancelled BUN/Creatinine Ratio Cancelled Glucose Cancelled Calcium Cancelled Total Bilirubin Cancelled AST Cancelled ALT Cancelled Alkaline Phosphatase Cancelled Troponin I High Sens Cancelled B-Natriuretic Peptide Cancelled Total Protein Cancelled Albumin Cancelled Globulin Cancelled Albumin/Globulin Ratio Cancelled Urine Color Dark Yellow Urine Appearance Clear (Clear) Urine pH 5.0 (4.5-7.5) Ur Specific [place] 1.025 (1.000-1.030) Urine Protein 2+ H (Negative) Urine Glucose (UA) Negative (Negative) Urine Ketones Negative (Negative) Urine Blood Trace H (Negative) Urine Nitrite Negative (Negative) Urine Bilirubin Negative (Negative) Urine Urobilinogen Negative (Negative) Ur Leukocyte Esterase Trace H (Negative) Urine WBC (Auto) 5-10 H (0-5) /hpf Urine RBC (Auto) 0-4 (0-4) /hpf U Hyaline Cast (Auto) 5-10 H (0-5) /lpf U Epithel Cells (Auto) >30 H (0-5) /lpf Urine Bacteria (Auto) Negative (Negative) 11/25/23 Range/Units 12:19 WBC (4.8-10.8) K/ul RBC (4.20-5.40) M/uL Hgb (12.0-16.0) g/dl Hct (37.0-47.0) % MCV (80.0-100.0) fL MCH (25.0-34.0) pg MCHC (32.0-36.0) g/dL RDW Std Deviation (36.4-46.3) fL RDW Coeff of Diya (11.5-14.5) % Plt Count (130-400) K/uL MPV (9.4-12.4) fL Immature Gran % (Auto) % Neut % (Auto) % Lymph % (Auto) % [place] % (Auto) % Eos % (Auto) % Baso % (Auto) % Neut # (Auto) (1.40-6.50) K/uL Lymph # (Auto) (1.20-3.40) K/uL [place] # (Auto) (0.11-0.59) K/uL Eos # (Auto) (0.00-0.50) K/uL Baso # (Auto) (0.00-0.20) K/uL Immature Gran # (Auto) (0.01-0.20) K/uL PT 13.0 H INR 1.2 H VBG pH (7.36-7.41) VBG pCO2 (38-50) mmHg VBG pO2 mmHg VBG HCO3 mmol/L VBG O2 Saturation % VBG Base Excess mEq/L Sodium 139 Potassium 4.3 Chloride 105 Carbon Dioxide 27 Anion Gap 7 BUN 19 Creatinine 0.68 Est Cr Clr Drug Dosing 51.3 Est GFR ( Amer) 91.8 Est GFR (Non-Af Amer) 79.2 BUN/Creatinine Ratio 27.9 H Glucose 136 H Calcium 9.1 Total Bilirubin 1.7 H AST 22 ALT 16 Alkaline Phosphatase 58 Troponin I High Sens 14.2 H B-Natriuretic Peptide 538 H Total Protein 6.4 Albumin 4.1 Globulin 2.3 L Albumin/Globulin Ratio 1.8 Urine Color Urine Appearance (Clear) Urine pH (4.5-7.5) Ur Specific [place] (1.000-1.030) Urine Protein (Negative) Urine Glucose (UA) (Negative) Urine Ketones (Negative) Urine Blood (Negative) Urine Nitrite (Negative) Urine Bilirubin (Negative) Urine Urobilinogen (Negative) Ur Leukocyte Esterase (Negative) Urine WBC (Auto) (0-5) /hpf Urine RBC (Auto) (0-4) /hpf U Hyaline Cast (Auto) (0-5) /lpf U Epithel Cells (Auto) (0-5) /lpf Urine Bacteria (Auto) (Negative) Administered Medications Discontinued Medications Furosemide (Furosemide 40 Mg/4 Ml Vial) 40 mg IV ONE ONE Stop: 11/25/23 11:57 Last Admin: 11/25/23 12:05 Dose: 40 mg Documented By: KV Imaging Data Radiologist's Impression: Chest X-Ray 11/25/23 11:07 XR chest 1V portable CLINICAL HISTORY: Dyspnea TECHNIQUE: Single frontal radiograph of the chest was obtained. Comparison: Comparison is made to chest radiograph 10/28/2022 FINDINGS: No lines and tubes are seen. The cardiomediastinal silhouette is obscured. Bilateral lower lung predominant airspace opacities are seen. Pulmonary vasculature is prominent and there are Randall B-lines. Small bilateral pleural effusions are seen. IMPRESSION: 1. Cardiomegaly and moderate pulmonary edema. 2. Bilateral lower lung predominant airspace opacities likely represent aspiration, pneumonia, and/or alveolar edema. 3. Small bilateral pleural effusions. ACT 112: Negative or not required by law. Electronically signed by: James Fontenot M.D. 11/25/2023 11:35 AM Discharge Plan Visit Data Chief Complaint: Shortness of Breath/Dyspnea ED Provider: Willie Montana Discharge Problem: Hypoxia Patient Disposition: Admitted As Inpatient Discharge Instructions Interventions: ED Discharge Assessment Last Done: 11/25/23 14:15
[2023-11-25 11:34] LABS: Basophils # (auto) 0.05 K/uL (0.00-0.20); Basophils % (auto) 0.8 %; Eosinophils # (auto) 0.12 K/uL (0.00-0.50); Eosinophils % (auto) 1.8 %; Hematocrit (blood only) 41.7 % (37.0-47.0); Hemoglobin 13.2 g/dl (12.0-16.0); Immature Granulocytes # (auto) 0.02 K/uL (0.01-0.20); Immature Granulocytes % (auto) 0.3 %; Lymphocytes # (auto) 1.04 K/uL (1.20-3.40); Lymphocytes % (auto) 15.6 %; Mean Corpuscular Hemoglobin 32.2 pg (25.0-34.0); Mean Corpuscular Hgb Conc 31.7 g/dL (32.0-36.0); Mean Corpuscular Volume 101.7 fL (80.0-100.0); Mean Platelet Volume 10.9 fL (9.4-12.4); Monocytes # (auto) 0.85 K/uL (0.11-0.59); Monocytes % (auto) 12.8 %; Neutrophils # (auto) 4.57 K/uL (1.40-6.50); Neutrophils % (auto) 68.7 %; Platelet Count 174 K/uL (130-400); RDW Coefficient of Variation 16.1 % (11.5-14.5); RDW Standard Deviation 59.7 fL (36.4-46.3); White Blood Count 6.65 K/ul (4.8-10.8)
--- NOTE | 2023-11-25 11:37 | XRay Report ---
XR chest 1V portable CLINICAL HISTORY: Dyspnea TECHNIQUE: Single frontal radiograph of the chest was obtained. Comparison: Comparison is made to chest radiograph 10/28/2022 FINDINGS: No lines and tubes are seen. The cardiomediastinal silhouette is obscured. Bilateral lower lung predo minant airspace opacities are seen. Pulmonary vasculature is prominent and there are Randall B-lines. Small bilateral pleural effusions are seen. IMPRESSION: 1. Cardiomegaly and moderate pulmonary edema. 2. Bilateral lower lung predominant airspace opacities likely represent aspiration, pneumonia, and/o r alveolar edema. 3. Small bilateral pleural effusions. ACT 112: Negative or not required by law. Electronically signed by: James Fontenot M.D. 11/25/2023 11:35 AM
[2023-11-25 11:48] LABS: Base Excess VBG 4.3 mEq/L; HCO3 VBG 31 mmol/L; Oxygen Saturation VBG < 60.0 %; PCO2 VBG 55 mmHg (38-50); PO2 VBG < 20 mmHg; pH VBG 7.36 (7.36-7.41)
[2023-11-25] MEDS: FUROSEMIDE 40 MG/4 ML VIAL IV ONE (12:05)
[2023-11-25 12:33] LABS: Appearance Urine Clear (Clear); Bacteria Urine Automated Negative (Negative); Bilirubin Urine Negative (Negative); Blood Urine Trace (Negative); Color Urine Dark Yellow; Epithelial Cell Urine Auto >30 /lpf (0-5); Glucose Urine UA Negative (Negative); Ketones Urine Negative (Negative); Leukocyte Esterase Urine Trace (Negative); Nitrite Urine Negative (Negative); Protein Urine 2+ (Negative); RBC Urine Automated 0-4 /hpf (0-4); Specific Gravity Urine 1.025 (1.000-1.030); Urobilinogen Urine Negative (Negative)
--- NOTE | 2023-11-25 12:33 | Electrocardiogram Report ---
Test Reason : Blood Pressure : / mmHG Vent. Rate : 073 BPM Atrial Rate : 000 BPM P-R Int : 000 ms QRS Dur : 072 ms QT Int : 370 ms P-R-T Axes : 000 007 006 degrees QTc Int : 407 ms Atrial fibrillation Low voltage QRS Cannot rule out Anterior infarct , age undetermined Nonspecific ST abnormality Abnormal ECG When compared with ECG of 28-AUG-2023 10:46, (unconfirmed) Atrial fibrillation has replaced Sinus rhythm QRS voltage has decreased Minimal criteria for Anterior infarct are now Present Nonspecific T wave abnormality now evident in Inferior leads T wave inversion now evident in Anterior leads Confirmed by Preston Baker ([id number] on 11/25/2023 12:33:17 PM Referred By: REFERRED SELF Confirmed By:Dandy Baker
[2023-11-25 12:59] LABS: INR 1.2 (0.9-1.1)
[2023-11-25 13:09] LABS: Troponin I High Sensitivity 14.2 pg/ml (0-14)
[2023-11-25 13:10] LABS: Albumin Level 4.1 gm/dl (3.4-5.0); Bilirubin,Total 1.7 mg/dl (0.2-1.0); Calcium 9.1 mg/dl (8.6-10.3); Potassium 4.3 mmol/L (3.5-5.1)
[2023-11-25 13:16] LABS: Albumin Globulin Ratio 1.8 (0.9-2); BUN Creatinine Ratio 27.9 (10-20); Creatinine Clr Calc Pharmacy 51.3 ml/min; Est GFR (African American) 91.8 ml/min; Est GFR (Non-African American) 79.2 ml/min; Globulin 2.3 gm/dl (2.5-4.0); Total Protein 6.4 gm/dl (6.0-8.3)
[2023-11-25 13:25] LABS: Adenovirus PCR Not Detected (NotDetected); Bordetella parapertussis PCR Not Detected (NotDetected); Bordetella pertussis PCR Not Detected (NotDetected); Chlamydia pneumoniae PCR Not Detected (NotDetected); Coronavirus 229E PCR Not Detected (NotDetected); Coronavirus CoV-2 (COVID19)PCR Not Detected (NotDetected); Coronavirus HKU1 PCR Not Detected (NotDetected); Coronavirus NL63 PCR Not Detected (NotDetected); Coronavirus OC43PCR Not Detected (NotDetected); Human Metapneumovirus PCR Not Detected (NotDetected); Influenza A PCR Not Detected (NotDetected); Influenza B PCR Not Detected (NotDetected); Mycoplasma pneumoniae PCR Not Detected (NotDetected); Parainfluenza Virus 1 PCR Not Detected (NotDetected); Parainfluenza Virus 2 PCR Not Detected (NotDetected); Parainfluenza Virus 3 PCR Not Detected (NotDetected); Parainfluenza Virus 4 PCR Not Detected (NotDetected); Respiratory Syncytial VirusPCR Not Detected (NotDetected); Rhinovirus/Enterovirus PCR Not Detected (NotDetected)
--- NOTE | 2023-11-25 13:46 | History & Physical Report ---
Date of Service November 25, 2023 Assessment & Plan (1) CHF (congestive heart failure): Plan: Acute on Chronic congestive heart failure w/ preserved EF History of diastolic CHF, last echo with hyperdynamic LVEF and grade 1 diastolic dysfunction in 2017 Without chest pain, Trope 14.2, no acute ischemic EKG changes, BMP elevated at 538 With shortness of breath, orthopnea, hypoxia. Chest x-ray consistent with pulmonary edema/volume overload. Clinically without fever/chills/sweats to suggest pneumonia and no leukocytosis Patient initially on nonrebreather, rapidly improving and weaning to 5 L nasal cannula following Lasix 40 mg IV Troponin trended Echo pending Continue Lasix 40 mg BID17 + KCl 20meq, strict ins and outs, heart healthy (2) Atrial fibrillation: Plan: With additional history of first-degree heart block on digoxin Digoxin level pending A-fib is rate controlled at time of admission Continue anticoagulation with Eliquis (3) Diabetes mellitus, type II: Plan: Switch to basal bolus SSI while inpatient Goal BSG [id number] Heart healthy DM 2 diet (4) History of CVA with residual deficit: Plan: No new neurologic symptoms Continue aspirin daily Patient is on dose reduced Eliquis for A-fib prophylaxis (5) Hyperlipidemia: Plan: Continue statin Plan Chronic stable issues Hypertension: Continue amlodipine, metoprolol Hyperlipidemia: Continue statin DVT prophylaxis: Anticoagulated Disposition: PCU CODE STATUS: Full code History of Present Illness Primary Care Provider: Preston Moreno MD Lucinda is a 88-year-old female with past medical history of A-fib on anticoagulation, first-degree AV block on digoxin, hypertension, type II DM, history of CVA with carotid stenosis on antiplatelet/anticoagulation/statin who presents to the ER with 2 weeks of progressive dyspnea and who morning of ER presentation was found to be hypoxic at 87% and was transported to the ER for further evaluation. On assessment patient is on nonrebreather 12 L and has been ordered 40 mg of IV Lasix. Chest x-ray shows cardiomegaly and moderate pulmonary edema, bilateral airspace opacities suspicious for edema versus aspiration versus pneumonia with small bilateral pleural effusions and clinically patient is consistent with pulmonary edema/volume overload. There is no leukocytosis. VBG 7.3 //31. Creatinine is normal at baseline, and 0.68 on admission with a potassium of 4.3. BNP is elevated, high-sensitivity troponin is minimally elevated at 14.2 2. EKG shows A-fib. No acute i territorial ischemic change Lucinda is seen at the bedside. She reports that she has had a few weeks of progressive increasingly shortness of breath and leg swelling however in the last few days she has had much worse shortness of breath both at rest and on exertion and this is much worse with laying flat/she endorses orthopnea. She has not had a productive cough. Denies fever, chills, sweats. No chest pain or chest pressure at any point. She reports she has had chronic right hip and thigh pain however this is doing well and she is no longer on oxycodone. Denies abdominal pain. Denies lightheadedness and dizziness. No syncopal events. She was brought in the recommendation of home nursing who found her to be hypoxic. She denies a past history of heart attack does have a history of A-fib on digoxin, anticoagulation and diastolic dysfunction Medical History: Reviewed Medications: Reviewed Surgical History: Reviewed Family history: Reviewed Allergies: Reviewed Social History: Rev Code Status:Full Allergies Allergy/AdvReac Type Severity Reaction Status Date / Time amoxicillin Allergy Intermediate RASH Verified 08/28/23 10:59 Penicillins Allergy Intermediate RASH Verified 08/28/23 10:59 pravastatin Allergy Intermediate MYALGIA Verified 08/28/23 10:59 simvastatin Allergy Intermediate MYALGIA Verified 08/28/23 10:59 dulaglutide [From [facility]] AdvReac Intermediate Vomiting Verified 08/28/23 10:59 Home Medications Medication Instructions Recorded Confirmed Type cyanocobalamin (vitamin B-12) 1,000 mcg PO QAM 01/27/19 08/28/23 History 1,000 mcg tablet (Vitamin B-12) sennosides 8.6 mg-docusate sodium 1 tab PO BID 01/27/19 08/28/23 History 50 mg tablet (Senna-S) cholecalciferol (vitamin D3) 25 1,000 units PO BID 03/02/19 08/28/23 History mcg (1,000 unit) capsule (Vitamin D3) aspirin 81 mg tablet,delayed 81 mg PO DAILY 10/28/22 08/28/23 History release calcium carbonate 600 mg-vitamin 1 tab PO QAM 11/06/22 08/28/23 History D3 10 mcg (400 unit) tablet (Calcium 600 + D(3)) blood-glucose meter (OneTouch #1 ea 11/27/22 08/28/23 Rx Ultra2 Meter) oxycodone 5 mg tablet 5 mg PO Q4H PRN moderate-severe 12/11/22 08/28/23 Rx pain #30 tabs pen needle, diabetic 31 gauge x #10 ea 12/11/22 08/28/23 Rx 5/16" (BD Ultra-Fine Short Pen Needle) blood sugar diagnostic (OneTouch #300 ea 12/24/22 08/28/23 Rx Ultra Test strips) lancets 33 gauge (OneTouch Delica #300 ea 12/24/22 08/28/23 Rx Lancets) atorvastatin 20 mg tablet 20 mg PO HS #90 tabs 03/13/23 08/28/23 Rx duloxetine 20 mg capsule,delayed 20 mg PO QAM #90 caps 03/13/23 08/28/23 Rx release mirabegron 25 mg tablet,extended 25 mg PO DAILY #90 tabs 03/25/23 08/28/23 Rx release 24 hr (Myrbetriq) apixaban 2.5 mg tablet (Eliquis) 2.5 mg PO BID #180 tabs 05/09/23 08/28/23 Rx pregabalin 75 mg capsule (Lyrica) 75 mg PO HS #90 caps 07/29/23 08/28/23 Rx metformin 500 mg tablet,extended 500 mg PO DAILY #90 tabs 08/07/23 08/28/23 Rx release 24hr (osmotic) acetaminophen 500 mg tablet 1,000 mg PO TID PRN 08/28/23 History (Tylenol Extra Strength) digoxin 125 mcg (0.125 mg) tablet 125 mcg PO .COMPLEX #65 tabs 08/28/23 08/28/23 Rx (Digox) polyethylene glycol 3350 17 gram 17 g PO DAILY PRN 08/28/23 History oral powder packet (Miralax) metoprolol succinate 100 mg 100 mg PO BID #180 tabs 09/23/23 Rx tablet,extended release 24 hr amlodipine 5 mg tablet (Norvasc) 5 mg PO QAM #90 tabs 11/18/23 Rx Past Med/Surg History Medical History Periprosthetic fracture around internal prosthetic right hip joint, initial encounter (10/28/22) Periprosthetic fracture around internal prosthetic right hip joint from a fall History of CVA with residual deficit Acute ischemic stroke Allergic rhinitis due to pollen Bilateral carotid artery stenosis Cystocele, midline Depression Diabetes mellitus type II, controlled Disc degeneration, lumbar Dysphasia following cerebrovascular accident (CVA) Expressive aphasia Hemorrhoids Lumbar radiculopathy Microscopic hematuria Neurologic gait dysfunction On continuous oral anticoagulation Overactive bladder Peripheral neuropathy Polycythemia Primary localized osteoarthrosis of the hip Stress incontinence in female Vitamin D deficiency Hypertension Fall Hip fracture V tach Lumbar stenosis with neurogenic claudication (03/16/14) CHF (congestive heart failure) (03/19/14) Atrial fibrillation Osteoporosis Surgical History S/P appendectomy S/P lumbar laminectomy S/P cataract surgery S/P total hip arthroplasty Family History Grandfather Coronary heart disease Mother Coronary heart disease Sister Diabetes Father Coronary heart disease Other Family history non-contributory Denies family history of Ovarian cancer Prostate cancer Myocardial infarction Breast cancer Colorectal cancer Social History Smoking Status: Never smoker Second Hand Exposure: No; Do You Dip or Chew Tobacco: No; Hx Alcohol Use: No Hx Substance Use: No Preferred Language: Chinese Communication Ability: Effective Visual Impairment: No Limitations Hearing Ability: Use of Hearing Aid Senior Design Engineering Specialist Required: No Beliefs That Will Affect Care: None marital status: Current Living Situation: Alone Current Living Situation Comment: her lives in [facility], she has a life alert that she wears at home current occupational status: retired 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 NAD. Cooperative. HEENT: Atraumatic, normocephalic. Vision/hearing intact, [place] without hearing aid. PERLAA. Pulm: Bibasilar crackles are present, no wheezes/rales symmetrical chest rise. No increased work of breathing. No respiratory distress. Cardiac: Irregularly irregular. Radial pulses intact and symmetrical. +JVD w/ HJR Abdominal: Nontender, nondistended, soft. BS present. Ext: Bilateral 1+ ankle edema Results & Data Results & Data Vital Signs (Past 12 Hours) Vital Signs Temp Pulse Pulse Resp BP BP Pulse Ox 11/25/23 11:12 63 24 159/108 H 93 11/25/23 10:58 68 11/25/23 10:49 87 L 11/25/23 10:43 36.8 C 73 27 H 144/96 H 92 O2 Del Method O2 Flow Rate 11/25/23 11:12 Non-rebreather 12 11/25/23 10:58 11/25/23 10:49 Room Air 11/25/23 10:43 Nasal Cannula 3 PG Care Time/CCT Total # of Minutes Spent Total Time Spent with Patient: Total time spent is greater than 50% in coordination of care (as documented) at patient's floor/unit and/or counseling patient: Coding Level of Care Code 24394 INT INP/OBS CARE 3/75MIN Diagnoses CHF (congestive heart failure) I50.9 Paroxysmal atrial fibrillation I48.0 Atrial fibrillation type: paroxysmal Diabetes mellitus, type II E11.9 History of CVA with residual deficit I69.30 Hyperlipidemia E78.5 (2) Atrial fibrillation Atrial fibrillation type: paroxysmal Qualified Code(s): I48.0 - Paroxysmal atrial fibrillation
[2023-11-25] MEDS ORDERED: GLUCOSE 10 TAB/TUBE PO PRN (14:08)
[2023-11-25] MEDS ORDERED: GLUCOSE 40% GEL 15 GM TUBE PO PRN (14:08)
[2023-11-25] MEDS ORDERED: CARBOHYDRATES FOR HYPOGLYCEMIA PO PRN (14:08)
[2023-11-25] MEDS ORDERED: DEXTROSE 50% 50 ML SYRINGE IV PRN (14:08)
[2023-11-25] MEDS ORDERED: GLUCAGON FOR INJ 1 MG VIAL SQ PRN (14:08)
[2023-11-25] MEDS ORDERED: POLYETHYLENE (MIRALAX) 17 GM PACK PO PRN (14:33)
[2023-11-25] MEDS: DIGOXIN 0.125 MG TAB PO SCH (16:04)
[2023-11-25] MEDS: INSULIN ASPART PER UNIT CHARGE SC SCH (17:46)
--- NOTE | 2023-11-25 18:40 | XCELERA ---
[id number]
[2023-11-25] MEDS: FUROSEMIDE 40 MG/4 ML VIAL IV SCH (19:10)
[2023-11-25] MEDS: LANTUS PER UNIT CHARGE SQ SCH (21:26)
[2023-11-25] MEDS: ACETAMINOPHEN 325 MG TAB PO PRN (21:43)
[2023-11-25] MEDS: POTASSIUM CHLORIDE CRTAB 20 MEQ TABCR PO SCH (21:44)
[2023-11-25] MEDS: METOPROLOL SUCC 50MG EXT REL TAB PO SCH (21:44)
[2023-11-25] MEDS: PREGABALIN 75 MG CAP PO SCH (21:47)
[2023-11-25] MEDS: ATORVASTATIN 20 MG TAB PO SCH (21:48)
[2023-11-25] MEDS: APIXABAN 2.5 MG TAB PO SCH (21:48)
[2023-11-26 07:29] LABS: Basophils # (auto) 0.05 K/uL (0.00-0.20); Basophils % (auto) 0.7 %; Eosinophils % (auto) 2.7 %; Hematocrit (blood only) 38.4 % (37.0-47.0); Hemoglobin 12.6 g/dl (12.0-16.0); Immature Granulocytes # (auto) 0.01 K/uL (0.01-0.20); Immature Granulocytes % (auto) 0.1 %; Lymphocytes # (auto) 1.77 K/uL (1.20-3.40); Lymphocytes % (auto) 23.5 %; Mean Corpuscular Hemoglobin 32.5 pg (25.0-34.0); Mean Corpuscular Hgb Conc 32.8 g/dL (32.0-36.0); Monocytes # (auto) 1.08 K/uL (0.11-0.59); Monocytes % (auto) 14.3 %; Neutrophils # (auto) 4.42 K/uL (1.40-6.50); Neutrophils % (auto) 58.7 %; Platelet Count 168 K/uL (130-400); RDW Coefficient of Variation 15.7 % (11.5-14.5); RDW Standard Deviation 57.3 fL (36.4-46.3); Red Blood Count 3.88 M/uL (4.20-5.40); White Blood Count 7.53 K/ul (4.8-10.8)
[2023-11-26 08:15] LABS: BUN Creatinine Ratio 24.4 (10-20); Calcium 8.2 mg/dl (8.6-10.3); Creatinine Clr Calc Pharmacy 46.6 ml/min; Est GFR (African American) 79.8 ml/min; Est GFR (Non-African American) 68.8 ml/min; Potassium 3.9 mmol/L (3.5-5.1)
[2023-11-26] MEDS: amLODIPine BESYLATE 5 MG TAB PO SCH (08:34)
[2023-11-26] MEDS: DULoxetine HCL 20 MG CAP PO SCH (08:36)
[2023-11-26] MEDS: ASPIRIN 81 MG ECTAB PO SCH (08:37)
[2023-11-26] MEDS: DICLOFENAC SOD 1% GEL 100 GM TUBE EXT SCH (08:37)
--- NOTE | 2023-11-26 15:26 | Hospitalist Progress Note ---
Date of Service November 26, 2023 Assessment & Plan (1) CHF (congestive heart failure): Plan: Acute on chronic diastolic CHF. Responding nicely to parenteral Lasix diuresis. Monitor intake and output. Serial chest x-ray every 2 days. (2) Acute respiratory failure with hypoxia: Plan: Due to CHF. Wean off oxygen as tolerated (3) Atrial fibrillation: Plan: Chronic. Telemetry. Rate controlled. Continue Eliquis (4) Diabetes mellitus, type II: Plan: ADA diet. Metformin. Sliding scale coverage as needed (5) History of CVA with residual deficit: Plan: Supportive care. Stable. Continue current medical management (6) Hyperlipidemia: Plan: Stable. Continue statin Plan Await OT and PT evaluations. Hopeful discharge to home later this week Admission and Anticipated Discharge Date Admission Date: November 25, 2023 Subjective Alert and pleasant. Daughter is at the bedside. Brisk diuresis with parenteral Lasix 40 mg IV twice daily. Recent cardiac echo reveals normal left ventricular ejection fraction with evidence of chronic cor pulmonale. She has moderate mitral stenosis with left atrial and right atrial enlargement. Metformin has been restarted and the low-dose Lantus started on admission has been discontinued. OT and PT assessments requested. Will repeat portable chest x- ray again tomorrow, November 27 Review of Systems 2 Review of Systems: Constitutional-no fever or chills ENT-no blurred vision, no double vision, no epistaxis, no sore throat Respiratory-no cough, no wheezing. Shortness of breath with exertion Cardiac-no palpitations, no chest pain, no syncope GI-no nausea, vomiting, diarrhea, melena, hematochezia -no urinary retention, no urinary incontinence, no dysuria, no hematuria Musculoskeletal-no joint pain, no muscle tenderness. Peripheral edema noticed by daughter Skin-no bruising, no rashes, no pruritus Neuro-no isolated weakness, no paresthesia Psych-no depression, no anxiety Physical Exam 2 Physical Exam: General-alert and oriented x3, no fever, no chills HEENT-head atraumatic and normocephalic,, pupils equal and reactive to light, extraocular muscles intact Neck-no lymphadenopathy or thyromegaly, trachea midline Chest-dullness at both bases with bibasilar inspiratory rales. No wheezing. No rhonchi Cardiac-irregular rhythm with controlled rate. Normal S1 and S2 Abdomen-normal bowel sounds, nontender, no hepatosplenomegaly Extremities-no cyanosis, clubbing. 1-2+ pitting edema bilateral lower extremities below the knees Neuro-cranial nerves II through XII intact, motor and sensory function within normal limits, strength symmetrical, no focal deficits Psych-normal affect, normal mood Results & Data Results & Data Vital Signs (Past 12 Hours) Vital Signs Temp Pulse Pulse Resp BP Pulse Ox O2 Del Method 11/26/23 14:56 36.5 C 63 14 136/59 L 96 Nasal Cannula 11/26/23 10:54 36.3 C L 63 18 137/64 96 Nasal Cannula 11/26/23 08:35 63 11/26/23 07:53 56 L 11/26/23 07:25 36.5 C 63 16 136/71 95 Nasal Cannula O2 Flow Rate 11/26/23 14:56 5 11/26/23 10:54 5 11/26/23 08:35 11/26/23 07:53 11/26/23 07:25 5 Laboratory Results 11/26/23 07:07 11/26/23 07:07 PG Care Time/CCT Total # of Minutes Spent Total Time Spent with Patient: Total time spent is greater than 50% in coordination of care (as documented) at patient's floor/unit and/or counseling patient: Coding Level of Care Code 08749 SUB INP/OBS CARE 3/50MIN Diagnoses CHF (congestive heart failure) I50.9 Acute respiratory failure with hypoxia J96.01 Paroxysmal atrial fibrillation I48.0 Atrial fibrillation type: paroxysmal Diabetes mellitus, type II E11.9 History of CVA with residual deficit I69.30 Hyperlipidemia E78.5 (3) Atrial fibrillation Atrial fibrillation type: paroxysmal Qualified Code(s): I48.0 - Paroxysmal atrial fibrillation
[2023-11-26] MEDS: metFORMIN HCL ER 500 MG TABCR PO SCH (20:54)
[2023-11-27 06:56] LABS: Basophils # (auto) 0.04 K/uL (0.00-0.20); Basophils % (auto) 0.6 %; Eosinophils # (auto) 0.25 K/uL (0.00-0.50); Eosinophils % (auto) 3.5 %; Hematocrit (blood only) 42.5 % (37.0-47.0); Hemoglobin 13.8 g/dl (12.0-16.0); Immature Granulocytes # (auto) 0.03 K/uL (0.01-0.20); Immature Granulocytes % (auto) 0.4 %; Lymphocytes # (auto) 1.98 K/uL (1.20-3.40); Lymphocytes % (auto) 27.8 %; Mean Corpuscular Hemoglobin 32.1 pg (25.0-34.0); Mean Corpuscular Hgb Conc 32.5 g/dL (32.0-36.0); Mean Corpuscular Volume 98.8 fL (80.0-100.0); Mean Platelet Volume 10.3 fL (9.4-12.4); Monocytes # (auto) 1.08 K/uL (0.11-0.59); Monocytes % (auto) 15.1 %; Neutrophils # (auto) 3.75 K/uL (1.40-6.50); Neutrophils % (auto) 52.6 %; Platelet Count 205 K/uL (130-400); RDW Coefficient of Variation 15.5 % (11.5-14.5); RDW Standard Deviation 56.1 fL (36.4-46.3); White Blood Count 7.13 K/ul (4.8-10.8)
[2023-11-27 06:59] LABS: BUN Creatinine Ratio 25.8 (10-20); Calcium 8.6 mg/dl (8.6-10.3); Creatinine Clr Calc Pharmacy 39.1 ml/min; Est GFR (African American) 64.5 ml/min; Est GFR (Non-African American) 55.6 ml/min; Potassium 4.3 mmol/L (3.5-5.1)
--- NOTE | 2023-11-27 08:35 | XRay Report ---
SINGLE VIEW CHEST CLINICAL HISTORY: Congestive heart failure FINDINGS: An AP, portable, upright chest radiograph is compared to study dated 11/25/2023. The heart i s enlarged and noted atherosclerotic calcification of the thoracic aorta. There is pulmonary vascular congestion and interstitial edema. There are right larger than left pleural effusions with dependent consolidation. No pneumothorax is seen. The skeletal structures are osteopenic. The bony thorax is g rossly intact. IMPRESSION: 1. Cardiomegaly with evidence of congestive failure and pulmonary edema. This is similar to previous. 2. Right larger than left pleural effusions with dependent consolidation. Radiographic follow-up to [facility] is recommended. ACT 112: Negative or not required by law. Electronically signed by: Jd Garza M.D. 11/27/2023 8:34 AM
--- NOTE | 2023-11-27 14:34 | Hospitalist Progress Note ---
Date of Service November 27, 2023 Assessment & Plan (1) CHF (congestive heart failure): Plan: Acute on chronic diastolic CHF. Continued brisk diuresis with parenteral Lasix. Monitor intake and output. Serial chest x-ray every 2 days. (2) Acute respiratory failure with hypoxia: Plan: Due to CHF. Wean off oxygen as tolerated. Oxygen requirement has already decreased (3) Atrial fibrillation: Plan: Chronic. Telemetry. Sometimes slow ventricular rate. Metoprolol dosage down titrated today, November 26. Continue Eliquis (4) Diabetes mellitus, type II: Plan: ADA diet. Metformin. Sliding scale coverage as needed (5) History of CVA with residual deficit: Plan: Supportive care. Stable. Continue current medical management (6) Hyperlipidemia: Plan: Stable. Continue statin Plan Hopeful discharge to home in 48 to 72 hours. Will obtain two-step at the time of discharge to determine if she needs oxygen at home for a while. Admission and Anticipated Discharge Date Admission Date: November 25, 2023 Subjective Alert and oriented. Ramona chest x-ray done today, November 26, continues to show diastolic CHF with bilateral pleural effusions but looks slightly better. Atrial fibrillation ventricular rate is sometimes slow. Metoprolol down titrated. Potassium improved to 4.3 despite diuresis. Oral potassium supplementation decreased. Oxygen requirement is down to 3 L/min. Overall, she is stable and doing better Review of Systems 2 Review of Systems: Constitutional-no fever or chills ENT-no blurred vision, no double vision, no epistaxis, no sore throat Respiratory-no cough, no wheezing. Shortness of breath with exertion Cardiac-no palpitations, no chest pain, no syncope GI-no nausea, vomiting, diarrhea, melena, hematochezia -no urinary retention, no urinary incontinence, no dysuria, no hematuria Musculoskeletal-no joint pain, no muscle tenderness. Peripheral edema noticed by daughter Skin-no bruising, no rashes, no pruritus Neuro-no isolated weakness, no paresthesia Psych-no depression, no anxiety Physical Exam 2 Physical Exam: General-alert and oriented x3, no fever, no chills HEENT-head atraumatic and normocephalic,, pupils equal and reactive to light, extraocular muscles intact Neck-no lymphadenopathy or thyromegaly, trachea midline Chest-dullness at both bases with bibasilar inspiratory rales. No wheezing. No rhonchi Cardiac-irregular rhythm with controlled rate. Normal S1 and S2 Abdomen-normal bowel sounds, nontender, no hepatosplenomegaly Extremities-no cyanosis, clubbing. 1-2+ pitting edema bilateral lower extremities below the knees Neuro-cranial nerves II through XII intact, motor and sensory function within normal limits, strength symmetrical, no focal deficits Psych-normal affect, normal mood Results & Data Results & Data Vital Signs (Past 12 Hours) Vital Signs Temp Pulse Pulse Resp BP Pulse Ox O2 Del Method 11/27/23 10:51 36.4 C L 53 L 16 104/59 L 93 Nasal Cannula 11/27/23 08:18 69 11/27/23 08:00 Nasal Cannula 11/27/23 07:34 36.5 C 63 17 121/62 95 Nasal Cannula 11/27/23 07:29 60 11/27/23 03:00 36.4 C L 64 14 113/63 93 Nasal Cannula O2 Flow Rate 11/27/23 10:51 2 11/27/23 08:18 11/27/23 08:00 3 11/27/23 07:34 2 11/27/23 07:29 11/27/23 03:00 2 Laboratory Results 11/27/23 06:10 11/27/23 06:10 PG Care Time/CCT Total # of Minutes Spent Total Time Spent with Patient: Total time spent is greater than 50% in coordination of care (as documented) at patient's floor/unit and/or counseling patient: Coding Level of Care Code 05670 SUB INP/OBS CARE 3/50MIN Diagnoses CHF (congestive heart failure) I50.9 Acute respiratory failure with hypoxia J96.01 Paroxysmal atrial fibrillation I48.0 Atrial fibrillation type: paroxysmal Diabetes mellitus, type II E11.9 History of CVA with residual deficit I69.30 Hyperlipidemia E78.5 (3) Atrial fibrillation Atrial fibrillation type: paroxysmal Qualified Code(s): I48.0 - Paroxysmal atrial fibrillation
[2023-11-27] MEDS: METOPROLOL SUCC 50MG EXT REL TAB PO SCH (21:02)
[2023-11-27] MEDS: POTASSIUM CHLORIDE 10 MEQ TABCR PO SCH (21:07)
[2023-11-28 08:17] LABS: BUN Creatinine Ratio 28.9 (10-20); Calcium 8.9 mg/dl (8.6-10.3); Creatinine Clr Calc Pharmacy 41.9 ml/min; Est GFR (Non-African American) 63.9 ml/min; Potassium 3.9 mmol/L (3.5-5.1)
--- NOTE | 2023-11-28 14:26 | Hospitalist Progress Note ---
Date of Service November 28, 2023 Assessment & Plan (1) CHF (congestive heart failure): Plan: Acute on chronic diastolic CHF. Continued brisk diuresis with parenteral Lasix. Monitor intake and output. Serial chest x-ray every 2 days. Will repeat portable chest x-ray again tomorrow, November 28 (2) Acute respiratory failure with hypoxia: Plan: Due to CHF. Wean off oxygen as tolerated. Oxygen requirement has already decreased. She is now only requiring 3 L/min. She may need home oxygen at home for a while before he can be weaned off. Will obtain two-step evaluation tomorrow, November 28 (3) Atrial fibrillation: Plan: Chronic. Telemetry. Sometimes slow ventricular rate. Metoprolol dosage was down titrated on November 26. Continue Eliquis (4) Diabetes mellitus, type II: Plan: ADA diet. Metformin. Sliding scale coverage as needed (5) History of CVA with residual deficit: Plan: Supportive care. Stable. Continue current medical management (6) Hyperlipidemia: Plan: Stable. Continue statin Plan And hopeful discharge to home tomorrowNovember 28. Will obtain two-step oxygen evaluation before discharge. She might need home oxygen for a while Admission and Anticipated Discharge Date Admission Date: November 25, 2023 Subjective Alert and oriented. No distress. Heart rate and blood pressure stable after down titration of metoprolol dosage. Intake and output measurements are not accurate because she does not have a collection hat in the toilet. Will repeat portable chest x-ray again tomorrow, November 28. Oxygen requirements are down to 3 L. I tried to call her daughter twice today with no answer. I suspect she can go home tomorrow and probably will need home oxygen for a while but this eventually should be able to be titrated off. Review of Systems 2 Review of Systems: Constitutional-no fever or chills ENT-no blurred vision, no double vision, no epistaxis, no sore throat Respiratory-no cough, no wheezing. Shortness of breath with exertion Cardiac-no palpitations, no chest pain, no syncope GI-no nausea, vomiting, diarrhea, melena, hematochezia -no urinary retention, no urinary incontinence, no dysuria, no hematuria Musculoskeletal-no joint pain, no muscle tenderness. Peripheral edema noticed by daughter Skin-no bruising, no rashes, no pruritus Neuro-no isolated weakness, no paresthesia Psych-no depression, no anxiety Physical Exam 2 Physical Exam: General-alert and oriented x3, no fever, no chills HEENT-head atraumatic and normocephalic,, pupils equal and reactive to light, extraocular muscles intact Neck-no lymphadenopathy or thyromegaly, trachea midline Chest-dullness at both bases with bibasilar inspiratory rales. No wheezing. No rhonchi Cardiac-irregular rhythm with controlled rate. Normal S1 and S2 Abdomen-normal bowel sounds, nontender, no hepatosplenomegaly Extremities-no cyanosis, clubbing. 1-2+ pitting edema bilateral lower extremities below the knees Neuro-cranial nerves II through XII intact, motor and sensory function within normal limits, strength symmetrical, no focal deficits Psych-normal affect, normal mood Results & Data Results & Data Vital Signs (Past 12 Hours) Vital Signs Temp Pulse Pulse Resp BP BP Pulse Ox 11/28/23 11:16 36.5 C 59 L 20 105/58 L 96 11/28/23 08:36 36.6 C 75 20 129/70 94 11/28/23 07:52 78 11/28/23 03:06 36.6 C 67 18 132/70 94 O2 Del Method O2 Flow Rate 11/28/23 11:16 Nasal Cannula 3 11/28/23 08:36 Nasal Cannula 3 11/28/23 07:52 11/28/23 03:06 Nasal Cannula 3 Laboratory Results 11/27/23 06:10 11/28/23 07:25 PG Care Time/CCT Total # of Minutes Spent Total Time Spent with Patient: Total time spent is greater than 50% in coordination of care (as documented) at patient's floor/unit and/or counseling patient: Coding Level of Care Code 73493 SUB INP/OBS CARE 3/50MIN Diagnoses CHF (congestive heart failure) I50.9 Acute respiratory failure with hypoxia J96.01 Paroxysmal atrial fibrillation I48.0 Atrial fibrillation type: paroxysmal Diabetes mellitus, type II E11.9 History of CVA with residual deficit I69.30 Hyperlipidemia E78.5 (3) Atrial fibrillation Atrial fibrillation type: paroxysmal Qualified Code(s): I48.0 - Paroxysmal atrial fibrillation
--- NOTE | 2023-11-29 08:33 | XRay Report ---
XR chest 1V portable CLINICAL HISTORY: Congestive heart failure. COMPARISON STUDY: Chest radiograph November 27, 2023. FINDINGS: No pneumothorax. Small bilateral pleural effusions and associated bibasilar opacities have improved. Mild interstitial pulmonary edema has improved as well. Mild right midlung opacity is noted . Airspace opacities within the lungs have improved. Cardiomediastinal silhouette is stable. IMPRESSION: 1. Interval improvement in pulmonary edema and small bilateral pleural effusions. 2. Hazy right midlung opacity. This may reflect residual alveolar edema or fissural fluid. A superimp osed infectious process is considered less likely. Radiographic follow-up to ensure resolution is rec ommended. ACT 112: Negative or not required by law. Electronically signed by: Cornelio Davison M.D. 11/29/2023 8:32 AM
[2023-11-29 10:54] LABS: BUN Creatinine Ratio 32.1 (10-20); Calcium 8.9 mg/dl (8.6-10.3); Est GFR (African American) 72.9 ml/min; Est GFR (Non-African American) 62.9 ml/min; Potassium 3.9 mmol/L (3.5-5.1)
--- NOTE | 2023-11-29 12:46 | Discharge Summary ---
Date of Service November 29, 2023 Admission HPI Per Admitting Provider Lucinda is a 88-year-old female with past medical history of A-fib on anticoagulation, first-degree AV block on digoxin, hypertension, type II DM, history of CVA with carotid stenosis on antiplatelet/anticoagulation/statin who presents to the ER with 2 weeks of progressive dyspnea and who morning of ER presentation was found to be hypoxic at 87% and was transported to the ER for further evaluation. On assessment patient is on nonrebreather 12 L and has been ordered 40 mg of IV Lasix. Chest x-ray shows cardiomegaly and moderate pulmonary edema, bilateral airspace opacities suspicious for edema versus aspiration versus pneumonia with small bilateral pleural effusions and clinically patient is consistent with pulmonary edema/volume overload. There is no leukocytosis. VBG 7.3 /. Creatinine is normal at baseline, and 0.68 on admission with a potassium of 4.3. BNP is elevated, high-sensitivity troponin is minimally elevated at 14.2 2. EKG shows A-fib. No acute i territorial ischemic change Lucinda is seen at the bedside. She reports that she has had a few weeks of progressive increasingly shortness of breath and leg swelling however in the last few days she has had much worse shortness of breath both at rest and on exertion and this is much worse with laying flat/she endorses orthopnea. She has not had a productive cough. Denies fever, chills, sweats. No chest pain or chest pressure at any point. She reports she has had chronic right hip and thigh pain however this is doing well and she is no longer on oxycodone. Denies abdominal pain. Denies lightheadedness and dizziness. No syncopal events. She was brought in the recommendation of home nursing who found her to be hypoxic. She denies a past history of heart attack does have a history of A-fib on digoxin, anticoagulation and diastolic dysfunction Medical History: Reviewed Medications: Reviewed Surgical History: Reviewed Family history: Reviewed Allergies: Reviewed Social History: Rev Code Status:Full Principal Diagnosis Acute on chronic diastolic CHF, acute hypoxic respiratory failure Discharge Exam General-alert and oriented x3, no fever, no chills HEENT-head atraumatic and normocephalic,, pupils equal and reactive to light, extraocular muscles intact Neck-no lymphadenopathy or thyromegaly, trachea midline Chest-minimal dullness at both bases with resolution of bibasilar inspiratory rales. No wheezing. No rhonchi Cardiac-irregular rhythm with controlled rate. Normal S1 and S2 Abdomen-normal bowel sounds, nontender, no hepatosplenomegaly Extremities-no cyanosis, clubbing. 1-2+ pitting edema bilateral lower extremities below the knees has greatly improved and nearly resolved Neuro-cranial nerves II through XII intact, motor and sensory function within normal limits, strength symmetrical, no focal deficits Psych-normal affect, normal mood Discharge Data Allergies Allergy/AdvReac Type Severity Reaction Status Date / Time amoxicillin Allergy Intermediate RASH Verified 08/28/23 10:59 Penicillins Allergy Intermediate RASH Verified 08/28/23 10:59 pravastatin Allergy Intermediate MYALGIA Verified 08/28/23 10:59 simvastatin Allergy Intermediate MYALGIA Verified 08/28/23 10:59 dulaglutide [From Trulicity] AdvReac Intermediate Vomiting Verified 08/28/23 10:59 Consultations 11/25/23 13:12 ED Decision to Admit Stat Hospital Course (1) CHF (congestive heart failure): Acute on chronic diastolic CHF. She experienced brisk diuresis with parenteral Lasix. Chest x-ray done today, November 28, looks much much better. I believe her CHF will completely clear and she will eventually be able to be weaned off the oxygen. Her oxygen requirements are decreasing. (2) Acute respiratory failure with hypoxia: Due to CHF. Wean off oxygen as tolerated. Oxygen requirement has already decreased. Two-step oxygen evaluation will be completed today. She will remain on home oxygen at discharge per nasal cannula which can be eventually weaned off as an outpatient per her PCP. (3) Atrial fibrillation: Chronic. Telemetry. Sometimes slow ventricular rate. Metoprolol dosage was down titrated on November 26. Continue Eliquis (4) Diabetes mellitus, type II: ADA diet. Metformin. Sliding scale coverage as needed (5) History of CVA with residual deficit: Supportive care. Stable. Continue current medical management (6) Hyperlipidemia: Stable. Continue statin Plan Home today, November 28. Continue oxygen per nasal cannula which hopefully can be weaned off quickly Total Time Total Time Spent Total Time Spent (In Minutes): 45 minutes Discharge Plan Discharge Items Patient Disposition: Home - Home Health Services Reason For Visit: [facility] CHF Discharge Diagnosis: Acute on chronic diastolic CHF, acute hypoxic respiratory failure Activity Comment: Wear oxygen by nasal cannula as directed Non-emergency contact: Primary Care Provider Call non-emergency contact if: you have any medication questions and your symptoms worsen Follow-up/Referrals: Preston Moreno MD [Primary Care Provider] - Diet: Carb Consistent or DM2 and Heart Healthy Addtl Attending Provider Instructions: Take Lasix after lunch daily along with a potassium pill daily. The Lasix and potassium do not need to be taken at the same time but they can be if desired. Metoprolol dosage has been decreased. All new prescriptions have been sent to [facility] pharmacy in [place] Pending Studies at Discharge: No Stand-Alone Forms: My [facility] [employer], Smoking Cessation Medications and DC Order Prescriptions: New metoprolol succinate 50 mg Tablet Extended Release 24 Hr 50 mg PO BID Qty: 60 0RF potassium chloride 10 mEq Tablet,Er Particles/Crystals 10 meq PO DAILY Qty: 30 0RF furosemide [Lasix] 40 mg tablet 40 mg PO DAILY Qty: 30 0RF Continued (DME) blood-glucose meter [OneTouch Ultra2 Meter] [facility] [place] See Rx Instructions .Route Qty: 1 0RF Rx Instructions: check bsbs 1-2 times daily (DME) OneTouch Ultra Test Strip See Rx Instructions .Route Qty: 300 1RF Rx Instructions: check bsbs 1-2 times daily (DME) lancets [OneTouch Delica Lancets] 33 gauge misc See Rx Instructions .Route Qty: 300 1RF Rx Instructions: check bsbs 1-2 times daily duloxetine 20 mg capsule,delayed release(DR/EC) 20 mg PO QAM Qty: 90 3RF atorvastatin 20 mg tablet 20 mg PO HS Qty: 90 3RF Eliquis 2.5 mg tablet 2.5 mg PO BID Qty: 180 3RF pregabalin [Lyrica] 75 mg capsule 75 mg PO HS Qty: 90 1RF metformin 500 mg tablet extended release 24hr 500 mg PO DAILY Qty: 90 3RF Rx Instructions: dose decreased back to DAILY due to GI effects per DR Barcenas amlodipine [Norvasc] 5 mg tablet 5 mg PO QAM Qty: 90 3RF polyethylene glycol 3350 [Miralax] 17 gram powder in packet 17 g PO DAILY PRN (Reason: Constipation) acetaminophen [Tylenol Extra Strength] 500 mg tablet 1,000 mg PO TID PRN (Reason: Pain) digoxin [Digox] 125 mcg (0.125 mg) tablet 125 mcg PO .COMPLEX Qty: 65 3RF Rx Instructions: 125 mcg orally 5 days qam/week; oxycodone 5 mg tablet 5 mg PO Q4H PRN (Reason: moderate-severe pain) Qty: 30 0RF (DME) pen needle, diabetic [BD Ultra-Fine Short Pen Needle] 31 gauge x 5/16" needle See Rx Instructions .Route Qty: 10 0RF Rx Instructions: As directed daily E11.9 cyanocobalamin (vitamin B-12) [Vitamin B-12] 1,000 mcg Tablet 1,000 mcg PO QAM sennosides-docusate sodium [Senna-S] 8.6-50 mg Tablet 1 tab PO BID cholecalciferol (vitamin D3) [Vitamin D3] 1,000 unit capsule 1,000 units PO BID aspirin 81 mg Tablet,Delayed Release (Dr/Ec) 81 mg PO QAM calcium carbonate-vitamin D3 [Calcium 600 + D(3)] 600 mg-10 mcg (400 unit) Tablet 1 tab PO HS betamethasone dipropionate 0.05 % cream 1 applic TOPICAL UD PRN (Reason: Other) Myrbetriq 25 mg tablet extended release 24 hr 25 mg PO QAM Discontinued metoprolol succinate 100 mg tablet extended release 24 hr 100 mg PO BID Qty: 180 3RF Discharge Orders: Discharge Order- CHF (Routine); Ordered 11/29/23 Ordered By: Alek Overton Admission Data Admit Date/Time: 11/25/23 13:52 Attending Provider: Alek Overton Admit Provider: Juan Vasquez Primary Care Provider: Preston Moreno Other Providers: Juan Vasquez; [place] Coding Level of Care Code 85392 INP/OBS DISCH >30 MIN Diagnoses CHF (congestive heart failure) I50.9 Acute respiratory failure with hypoxia J96.01 Paroxysmal atrial fibrillation I48.0 Atrial fibrillation type: paroxysmal Diabetes mellitus, type II E11.9 History of CVA with residual deficit I69.30 Hyperlipidemia E78.5
== END 2023-11-29 17:10 | disposition home health service (06) | DRG 291 ==
LOC: ED 10:36 → SUATTDRO 13:52 → EDINP 13:52 → 2S 20:48

== ENCOUNTER 2024-02-18 17:17 | Inpatient (IN) ==
--- NOTE | 2024-02-18 18:03 | Emergency Department Note ---
Impression & Plan Hypoxia, CHF (congestive heart failure), Atrial fibrillation ED Provider Note NAME: FLYNN GABRIEL AGE: 88 SEX: F : 1935 ARRIVES VIA: Ambulance INFORMANT: Patient ED PROVIDER(S): Sage Varghese MD CHIEF COMPLAINT: Shortness of breath PLAN: Disposition: Admit MEDICAL DECISION MAKING: The patient is a pleasant 88-year-old woman with a past medical history of CHF with normal LV function and mildly to moderately reduced RV function with elevated right ventricular systolic pressures, atrial fibrillation on Eliquis, hypertension who presents to the emergency department via EMS and accompanied by her daughter for evaluation of shortness of breath with hypoxia in the mid 80s on room air in setting of having stopped her Lasix over the past week after discussing this with her primary care doctor due to urinating often. She was given instructions to resume her Lasix for weight gain of more than 3 pounds in a day or more than 5 pounds in a week. The patient's daughter reports that she has increased weight but has not gone beyond these limits. The patient reports mild congestion but no cough or sputum production. She has any fevers. Denies any nausea, vomiting or diarrhea. On evaluation the patient is no distress, afebrile with stable vital signs. She appears euvolemic to slightly hypervolemic. The patient's weight does appear to be 4-5kg up from her weight in November. She has scant rhonchi of bilateral lower lung taylor and lungs are otherwise clear. EKG demonstrates atrial fibrillation without overt acute ischemia. Chest x-ray was performed was interpreted to have peribronchial thickening without focal consolidation. Congestive change suspected given clinical context. WBC, hemoglobin and platelets within normal limits. Chemistry without metabolic acidosis. Electrolytes without significant abnormality. LFTs unremarkable. High-sensitivity troponin 9.8, wnl. BNP 641 increased from November of this year. Lipase is normal. TSH within limits. Respiratory viral panel/[employer] was negative. Procalcitonin is not elevated. Given the patient's hypoxia related to hypervolemia in setting of her CHF patient was for to hospital service for admission and further management. IV Lasix ordered. Case was discussed with Dr. Perez, [facility] [place] hospitalist, who will evaluate the patient for admission. Triage Nursing notes reviewed and agree them. Prior/external medical records reviewed Vital Signs: reviewed Differential diagnosis: Reactive airway disease, pneumonia, pneumothorax, COPD, CHF, infections, cardiac ischemia, pulmonary embolism, musculoskeletal, gastrointestinal, as well as other pathologies. ER treatment provided: See below. Diagnostics interpreted by me: ECG: Atrial fibrillation, 57 bpm, no ectopy, no overt ST elevation or depression, QTc 428, QRS 78. Cardiac Monitoring: An order for continuous cardiac monitoring was placed and demonstrated Atrial fibrillation, 57 bpm, no ectopy Laboratory studies: See below Imaging studies: See below Consultation(s): Case was discussed with Dr. Perez, [facility] [place] hospitalist, who will evaluate the patient for admission. HPI: The patient is a pleasant 88-year-old woman with a past medical history of CHF with normal LV function and mildly to moderately reduced RV function with elevated right ventricular systolic pressures, atrial fibrillation on Eliquis, hypertension who presents to the emergency department via EMS and accompanied by her daughter for evaluation of shortness of breath with hypoxia in the mid 80s on room air in setting of having stopped her Lasix over the past week after discussing this with her primary care doctor due to urinating often. She was given instructions to resume her Lasix for weight gain of more than 3 pounds in a day or more than 5 pounds in a week. The patient's daughter reports that she has increased weight but has not gone beyond these limits. The patient reports mild congestion but no cough or sputum production. She has any fevers. Denies any nausea, vomiting or diarrhea. ROS: See above HPI for pertinent positives & negatives. A total of 10 systems reviewed and were otherwise negative. VITALS:See Below PHYSICAL EXAMINATION: GENERAL: Awake, alert, in no distress HENT: Normocephalic, atraumatic. Oropharynx unremarkable. EYES: Normal conjunctiva. Sclera non-icteric. NECK: Supple. No nuchal rigidity. FROM. No JVD. RESPIRATORY: Scant rhonchi of bilateral lower lung taylor and lungs are otherwise clear. CARDIAC: Regular rate, irregular rhythm. Extremities warm and well perfused. Pulses equal. ABDOMEN: Soft, non-distended. No tenderness to palpation. No rebound or guarding. No masses. MUSCULOSKELETAL: Chest examination reveals no tenderness. The back is symmetrical on inspection without obvious abnormality. There is no CVA tenderness to palpation. No joint edema. LOWER EXTREMITIES: Calves are equal size bilaterally and non-tender. No edema. No discoloration. NEURO: Normal sensorium. No sensory or motor deficits noted. SKIN: No rash or jaundice noted. Sage Varghese MD Past Med/Surg History Problem List (Updated 02/19/24 @ 04:24 by Sage Varghese MD) Atrial fibrillation (Acute) CHF (congestive heart failure) (Acute) Hypoxia (Acute) Acute respiratory failure with hypoxia Syncope Periprosthetic fracture around internal prosthetic right hip joint, initial encounter (10/28/22) Periprosthetic fracture around internal prosthetic right hip joint from a fall Osteoporosis (Chronic) Altered mental status Hemarthrosis involving knee joint Hypertension (Acute) Acute blood loss anemia Right leg swelling Vitamin D deficiency (Acute) Stress incontinence in female (Acute) Primary localized osteoarthrosis of the hip (Acute) Polycythemia (Acute) Peripheral neuropathy (Acute) Overactive bladder (Acute) Neurologic gait dysfunction (Acute) Microscopic hematuria (Acute) Lumbar radiculopathy (Acute) Expressive aphasia (Acute) Dysphasia following cerebrovascular accident (CVA) (Acute) Disc degeneration, lumbar (Acute) Depression (Acute) Cystocele, midline (Acute) Bilateral carotid artery stenosis (Acute) Allergic rhinitis due to pollen (Acute) Gait abnormality Dizziness (Acute) Psoriasis Candidiasis of breast Anticoagulant long-term use First degree atrioventricular block by electrocardiogram Postmenopausal bleeding Sensorineural hearing loss (SNHL) of both ears Impacted cerumen of both ears B12 deficiency Medical History Periprosthetic fracture around internal prosthetic right hip joint, initial encounter (10/28/22) History of CVA with residual deficit Acute ischemic stroke Allergic rhinitis due to pollen Bilateral carotid artery stenosis Cystocele, midline Depression Diabetes mellitus type II, controlled Disc degeneration, lumbar Dysphasia following cerebrovascular accident (CVA) Expressive aphasia Hemorrhoids Lumbar radiculopathy Microscopic hematuria Neurologic gait dysfunction On continuous oral anticoagulation Overactive bladder Peripheral neuropathy Polycythemia Primary localized osteoarthrosis of the hip Stress incontinence in female Vitamin D deficiency Hypertension Fall Hip fracture V tach Lumbar stenosis with neurogenic claudication (03/16/14) CHF (congestive heart failure) (03/19/14) Atrial fibrillation Osteoporosis Surgical History S/P appendectomy S/P lumbar laminectomy S/P cataract surgery S/P total hip arthroplasty Family History Grandfather Coronary heart disease Mother Coronary heart disease Sister Diabetes Father Coronary heart disease Other Family history non-contributory Denies family history of Ovarian cancer Prostate cancer Myocardial infarction Breast cancer Colorectal cancer Social History Smoking Status: Never smoker Second Hand Exposure: No; Do You Dip or Chew Tobacco: No; Hx Alcohol Use: No Hx Substance Use: No Preferred Language: Beninese Communication Ability: Effective Visual Impairment: No Limitations Hearing Ability: Use of Hearing Aid [place] Sawyer Required: No Beliefs That Will Affect Care: None marital status: / Current Living Situation: Alone Current Living Situation Comment: daughter and caregiver help current occupational status: retired 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 How many Children do You have: 1 Other Information That Helps Us Care for You: No Feels Safe at Home: Yes Safety Concerns: Feels Safe At This Time Childhood Exposure to Second-Hand Smoke: No Diet: regular caffeine: Yes during the past year weight has: remained stable Dental Care, Regularly: Yes Physical Activity Frequency: 1-2 Times per Week Seatbelt Use: always Sunscreen Use: Yes Assistive Devices: Walker Allergies Allergies Allergy/AdvReac Type Severity Reaction Status Date / Time amoxicillin Allergy Intermediate RASH Verified 02/18/24 19:50 Penicillins Allergy Intermediate RASH Verified 02/18/24 19:50 pravastatin Allergy Intermediate MYALGIA Verified 02/18/24 19:50 simvastatin Allergy Intermediate MYALGIA Verified 02/18/24 19:50 [facility] AdvReac Intermediate Vomiting Verified 02/18/24 19:50 Home Meds Home Medications Medication Instructions Recorded Confirmed cyanocobalamin (vitamin B-12) 1,000 mcg PO QAM 01/27/19 02/18/24 1,000 mcg tablet (Vitamin B-12) sennosides 8.6 mg-docusate sodium 1 tab PO BID 01/27/19 02/18/24 50 mg tablet (Senna-S) aspirin 81 mg tablet,delayed 81 mg PO QAM 10/28/22 02/18/24 release calcium carbonate 600 mg-vitamin 1 tab PO HS 11/06/22 02/18/24 D3 10 mcg (400 unit) tablet (Calcium 600 + D(3)) acetaminophen 500 mg tablet 1,000 mg PO TID PRN Pain 08/28/23 02/18/24 (Tylenol Extra Strength) polyethylene glycol 3350 17 gram 17 g PO DAILY PRN Constipation 08/28/23 02/18/24 oral powder packet (Miralax) betamethasone dipropionate 0.05 % 1 applic topical UD PRN Other 11/25/23 02/18/24 topical cream cholecalciferol (vitamin D3) 25 1,000 unit PO DAILY 02/12/24 02/18/24 mcg (1,000 unit) capsule (Vitamin D3) Previous Rx's Medication Instructions Recorded atorvastatin 20 mg tablet 20 mg PO HS #90 tabs 03/13/23 duloxetine 20 mg capsule,delayed 20 mg PO QAM #90 caps 03/13/23 release apixaban 2.5 mg tablet (Eliquis) 2.5 mg PO BID #180 tabs 05/09/23 metformin 500 mg tablet,extended 500 mg PO DAILY #90 tabs 08/07/23 release 24hr (osmotic) digoxin 125 mcg (0.125 mg) tablet 125 mcg PO .COMPLEX #65 tabs 08/28/23 (Digox) amlodipine 5 mg tablet (Norvasc) 5 mg PO QAM #90 tabs 11/18/23 metoprolol succinate 50 mg 50 mg PO BID #60 tabs 11/29/23 tablet,extended release 24 hr pregabalin 75 mg capsule (Lyrica) 75 mg PO HS #90 caps 01/14/24 furosemide 20 mg tablet 20 mg PO DAILY PRN edema #90 tabs 02/12/24 mirabegron 25 mg tablet,extended 25 mg PO QAM #90 tabs 02/12/24 release 24 hr (Myrbetriq) potassium chloride 10 mEq 10 meq PO DAILY PRN When taking 02/12/24 tablet,extended release(part/cryst) furosemide #90 tabs Results & Data (ED) Vital Signs Vital Signs - 24 hr 02/18/24 17:27 02/18/24 17:27 02/18/24 17:27 Temperature 36.7 C Temperature Source Oral Pulse Rate 80 Pulse Rate from SpO2 Sensor Respiratory Rate 16 Respiratory Effort / Characteristics Non-Labored Spontaneous Non-Labored Spontaneous Respiratory Depth Normal Normal Respiratory Pattern Regular Regular Blood Pressure 146/59 H Blood Pressure Mean 88 Pulse Oximetry 94 84 L Oxygen Delivery Method Nasal Cannula Room Air Room Air Oxygen Flow Rate 4 0 Sepsis Recent Fever Within 48 Hours No Sepsis New/Unexplained Change in Mental Status N/A Sepsis Action Taken by Nursing No Action Required Oxygen Flow Rate - Titration 4 Pulse Oximetry Post Tiitration 95 02/18/24 17:45 02/18/24 17:49 02/18/24 17:57 Temperature Temperature Source Pulse Rate 61 69 Pulse Rate from SpO2 Sensor 71 Respiratory Rate 24 Respiratory Effort / Characteristics Respiratory Depth Respiratory Pattern Blood Pressure Blood Pressure Mean Pulse Oximetry 94 95 Oxygen Delivery Method Nasal Cannula Oxygen Flow Rate 4 Sepsis Recent Fever Within 48 Hours Sepsis New/Unexplained Change in Mental Status Sepsis Action Taken by Nursing Oxygen Flow Rate - Titration Pulse Oximetry Post Tiitration 02/18/24 18:01 02/18/24 18:12 02/18/24 18:42 Temperature Temperature Source Pulse Rate 68 61 Pulse Rate from SpO2 Sensor 71 74 Respiratory Rate 21 22 Respiratory Effort / Characteristics Respiratory Depth Respiratory Pattern Blood Pressure 143/73 H Blood Pressure Mean 95 Pulse Oximetry 97 Oxygen Delivery Method Nasal Cannula Oxygen Flow Rate 4 Sepsis Recent Fever Within 48 Hours Sepsis New/Unexplained Change in Mental Status Sepsis Action Taken by Nursing Oxygen Flow Rate - Titration Pulse Oximetry Post Tiitration 02/18/24 18:51 02/18/24 19:02 02/18/24 19:24 Temperature Temperature Source Pulse Rate 75 73 Pulse Rate from SpO2 Sensor 88 78 Respiratory Rate 17 18 Respiratory Effort / Characteristics Respiratory Depth Respiratory Pattern Blood Pressure 152/66 H Blood Pressure Mean 83 Pulse Oximetry 89 L 90 Oxygen Delivery Method Oxygen Flow Rate Sepsis Recent Fever Within 48 Hours Sepsis New/Unexplained Change in Mental Status Sepsis Action Taken by Nursing Oxygen Flow Rate - Titration Pulse Oximetry Post Tiitration 02/18/24 19:32 02/18/24 19:36 02/18/24 20:06 Temperature Temperature Source Pulse Rate 67 69 Pulse Rate from SpO2 Sensor 83 73 Respiratory Rate 22 17 Respiratory Effort / Characteristics Respiratory Depth Respiratory Pattern Blood Pressure 142/75 H Blood Pressure Mean 81 97 Pulse Oximetry 93 97 Oxygen Delivery Method Room Air Oxygen Flow Rate Sepsis Recent Fever Within 48 Hours Sepsis New/Unexplained Change in Mental Status Sepsis Action Taken by Nursing Oxygen Flow Rate - Titration Pulse Oximetry Post Tiitration 02/18/24 20:33 Temperature Temperature Source Pulse Rate 64 Pulse Rate from SpO2 Sensor 70 Respiratory Rate 21 Respiratory Effort / Characteristics Respiratory Depth Respiratory Pattern Blood Pressure Blood Pressure Mean Pulse Oximetry 94 Oxygen Delivery Method Oxygen Flow Rate Sepsis Recent Fever Within 48 Hours Sepsis New/Unexplained Change in Mental Status Sepsis Action Taken by Nursing Oxygen Flow Rate - Titration Pulse Oximetry Post Tiitration Laboratory Data 02/18/24 17:35 02/18/24 17:35 Lab Results 02/18/24 02/18/24 02/18/24 Range/Units 17:35 19:00 20:57 WBC 7.45 (4.8-10.8) K/ul RBC 3.70 L (4.20-5.40) M/uL Hgb 12.1 (12.0-16.0) g/dl Hct 36.8 L (37.0-47.0) % MCV 99.5 (80.0-100.0) fL MCH 32.7 (25.0-34.0) pg MCHC 32.9 (32.0-36.0) g/dL RDW Std Deviation 62.5 H (36.4-46.3) fL RDW Coeff of Diya 17.3 H (11.5-14.5) % Plt Count 188 (130-400) K/uL MPV 10.2 (9.4-12.4) fL Immature Gran % (Auto) 0.3 % Neut % (Auto) 63.0 % Lymph % (Auto) 22.7 % Crawford % (Auto) 10.9 % Eos % (Auto) 2.4 % Baso % (Auto) 0.7 % Neut # (Auto) 4.70 (1.40-6.50) K/uL Lymph # (Auto) 1.69 (1.20-3.40) K/uL Crawford # (Auto) 0.81 H (0.11-0.59) K/uL Eos # (Auto) 0.18 (0.00-0.50) K/uL Baso # (Auto) 0.05 (0.00-0.20) K/uL Immature Gran # (Auto) 0.02 (0.01-0.20) K/uL PT 12.1 H (9.0-12.0) Seconds INR 1.1 (0.9-1.1) Sodium 141 (136-145) mmol/L Potassium 3.9 (3.5-5.1) mmol/L Chloride 103 (98-107) mmol/L Carbon Dioxide 29 (21-32) mmol/L Anion Gap 9 (3-11) BUN 26 H (6-23) mg/dl Creatinine 0.77 (0.6-1.2) mg/dl Est Cr Clr Drug Dosing 47.2 ml/min Est GFR ( Amer) 81.0 ml/min Est GFR (Non-Af Amer) 69.9 ml/min BUN/Creatinine Ratio 33.8 H (10-20) Glucose 167 H (70-99(Fasting)) mg/dl Calcium 9.6 (8.6-10.3) mg/dl Magnesium 1.7 (1.7-2.4) mg/dl Total Bilirubin 1.9 H (0.2-1.0) mg/dl AST 20 (13-39) U/L ALT 16 (7-52) U/L Alkaline Phosphatase 60 (34-104) U/L Troponin I High Sens 9.8 (0-14) pg/ml B-Natriuretic Peptide 641 H (0-100) pg/ml Total Protein 7.1 (6.0-8.3) gm/dl Albumin 4.2 (3.4-5.0) gm/dl Globulin 2.9 (2.5-4.0) gm/dl Albumin/Globulin Ratio 1.4 (0.9-2) Lipase 34 (11-82) U/L Procalcitonin 0.04 (0-0.5) ng/ml TSH 1.642 (0.300-4.500) uIu/ml Adenovirus (PCR) Not Detected (NotDetected) B. pertussis DNA (PCR) Not Detected (NotDetected) B.parapertussis DNA PCR Not Detected (NotDetected) C. pneumoniae DNA (PCR) Not Detected (NotDetected) Coronavirus OC43 (PCR) Not Detected (NotDetected) Coronavirus HKU1 (PCR) Not Detected (NotDetected) Coronavirus 229E (PCR) Not Detected (NotDetected) SARS-CoV-2 (PCR) Not Detected (NotDetected) Coronavirus NL63 (PCR) Not Detected (NotDetected) Human Metapneumovir PCR Not Detected (NotDetected) Influenza Type A (PCR) Not Detected (NotDetected) Influenza Type B (PCR) Not Detected (NotDetected) M. pneumoniae (PCR) Not Detected (NotDetected) Parainfluenza 1 (PCR) Not Detected (NotDetected) Parainfluenza 2 (PCR) Not Detected (NotDetected) Parainfluenza 3 (PCR) Not Detected (NotDetected) Parainfluenza 4 (PCR) Not Detected (NotDetected) RSV (PCR) Not Detected (NotDetected) Entero/Rhino (PCR) Not Detected (NotDetected) Administered Medications Acetaminophen (Acetaminophen 325 Mg Tab) 650 mg PO Q4H PRN PRN Reason: Pain or Fever Stop: 03/19/24 23:43 Last Admin: 02/19/24 00:49 Dose: 650 mg Documented By: NRR Apixaban (Apixaban 2.5 Mg Tab) 2.5 mg PO BID [facility] Stop: 03/19/24 23:43 Last Admin: 02/19/24 00:55 Dose: 2.5 mg Documented By: NRR Atorvastatin Calcium (Atorvastatin 20 Mg Tab) 20 mg PO [facility] Stop: 03/19/24 23:43 Last Admin: 02/19/24 00:55 Dose: 20 mg Documented By: NRR Calcium/Vitamin D (Calcium 600mg + Vit D 400 Iu Tab) 1 tab PO [facility] Stop: 03/19/24 23:43 Last Admin: 02/19/24 00:56 Dose: 1 tab Documented By: NRR Insulin Aspart (Insulin Aspart Per Unit Charge) 0 units SC [facility] Stop: 03/19/24 23:43 Last Admin: 02/19/24 01:01 Dose: 2 units Documented By: NRR Co-signed By: ROBYR Metoprolol Succinate (Metoprolol Succ 50mg Ext Rel Tab) 50 mg PO BID [facility] Stop: 03/19/24 23:43 Last Admin: 02/19/24 00:55 Dose: 50 mg Documented By: NRR Pregabalin (Pregabalin 75 Mg Cap) 75 mg PO [facility] Stop: 03/19/24 23:43 Last Admin: 02/19/24 01:01 Dose: 75 mg Documented By: NRR Senna/Docusate Sodium (Docusate Sodium/Senna 50/8.6mg Tab) 1 tab PO BID [facility] Stop: 03/19/24 23:43 Last Admin: 02/19/24 00:55 Dose: 1 tab Documented By: NRR Discontinued Medications Furosemide (Furosemide Inj 20 Mg/2 Ml Vial) 20 mg IV ONE ONE Stop: 02/18/24 19:48 Last Admin: 02/18/24 20:34 Dose: 20 mg Documented By: GENARO Furosemide (Furosemide Inj 20 Mg/2 Ml Vial) 20 mg IV ONE ONE Stop: 02/18/24 23:45 Last Admin: 02/19/24 00:54 Dose: 20 mg Documented By: NRR Imaging Data Radiologist's Impression: Chest X-Ray 02/18/24 17:49 XR chest 1V portable CLINICAL HISTORY: Chest pain, nonspecific TECHNIQUE: Single frontal radiograph of the chest was obtained. Comparison: Comparison is made to chest radiograph 11/29/2023 FINDINGS: No lines and tubes are seen. Cardiomegaly is noted. The aortic arch is calcified. Peribronchial thickening is seen. Small bilateral pleural effusions are seen. IMPRESSION: 1. Peribronchial thickening is seen compatible with infectious/inflammatory airways disease or viral pneumonia. No dafne consolidation is seen. 2. Small bilateral pleural effusions. ACT 112: Negative or not required by law. Electronically signed by: James Fontenot M.D. 02/18/2024 6:43 PM Discharge Plan Visit Data Chief Complaint: Shortness of Breath/Dyspnea ED Provider: Sage Varghese Discharge Problem: Hypoxia, CHF (congestive heart failure), Atrial fibrillation Patient Disposition: Admitted As Inpatient Discharge Instructions Interventions: ED Discharge Assessment Last Done: 02/18/24 23:12 Discharge Problem: CHF (congestive heart failure) Qualifiers: Heart failure type: unspecified Heart failure chronicity: acute on chronic Q ualified Code(s): I50.9 - Heart failure, unspecified Atrial fibrillation Qualifiers: Atrial fibrillation type: unspecified Qualified Code(s): I48.91 - Unspecified atrial fibrillation
[2024-02-18 18:06] LABS: Basophils # (auto) 0.05 K/uL (0.00-0.20); Basophils % (auto) 0.7 %; Eosinophils # (auto) 0.18 K/uL (0.00-0.50); Eosinophils % (auto) 2.4 %; Hematocrit (blood only) 36.8 % (37.0-47.0); Hemoglobin 12.1 g/dl (12.0-16.0); Immature Granulocytes # (auto) 0.02 K/uL (0.01-0.20); Immature Granulocytes % (auto) 0.3 %; Lymphocytes # (auto) 1.69 K/uL (1.20-3.40); Lymphocytes % (auto) 22.7 %; Mean Corpuscular Hemoglobin 32.7 pg (25.0-34.0); Mean Corpuscular Hgb Conc 32.9 g/dL (32.0-36.0); Mean Corpuscular Volume 99.5 fL (80.0-100.0); Mean Platelet Volume 10.2 fL (9.4-12.4); Monocytes # (auto) 0.81 K/uL (0.11-0.59); Monocytes % (auto) 10.9 %; Platelet Count 188 K/uL (130-400); RDW Coefficient of Variation 17.3 % (11.5-14.5); RDW Standard Deviation 62.5 fL (36.4-46.3); White Blood Count 7.45 K/ul (4.8-10.8)
[2024-02-18 18:27] LABS: Albumin Globulin Ratio 1.4 (0.9-2); Albumin Level 4.2 gm/dl (3.4-5.0); BUN Creatinine Ratio 33.8 (10-20); Bilirubin,Total 1.9 mg/dl (0.2-1.0); Calcium 9.6 mg/dl (8.6-10.3); Creatinine Clr Calc Pharmacy 47.2 ml/min; Est GFR (Non-African American) 69.9 ml/min; Globulin 2.9 gm/dl (2.5-4.0); Magnesium 1.7 mg/dl (1.7-2.4); Potassium 3.9 mmol/L (3.5-5.1); Total Protein 7.1 gm/dl (6.0-8.3)
[2024-02-18 18:31] LABS: INR 1.1 (0.9-1.1); Prothrombin Time 12.1 Seconds (9.0-12.0)
[2024-02-18 18:33] LABS: Troponin I High Sensitivity 9.8 pg/ml (0-14)
[2024-02-18 18:39] LABS: Thyroid Stimulating Hormone 1.642 uIu/ml (0.300-4.500)
--- NOTE | 2024-02-18 18:45 | XRay Report ---
XR chest 1V portable CLINICAL HISTORY: Chest pain, nonspecific TECHNIQUE: Single frontal radiograph of the chest was obtained. Comparison: Comparison is made to chest radiograph 11/29/2023 FINDINGS: No lines and tubes are seen. Cardiomegaly is noted. The aortic arch is calcified. Peribronchial thick ening is seen. Small bilateral pleural effusions are seen. IMPRESSION: 1. Peribronchial thickening is seen compatible with infectious/inflammatory airways disease or viral pneumonia. No dafne consolidation is seen. 2. Small bilateral pleural effusions. ACT 112: Negative or not required by law. Electronically signed by: James Fontenot M.D. 02/18/2024 6:43 PM
[2024-02-18 20:02] LABS: Adenovirus PCR Not Detected (NotDetected); Bordetella parapertussis PCR Not Detected (NotDetected); Bordetella pertussis PCR Not Detected (NotDetected); Chlamydia pneumoniae PCR Not Detected (NotDetected); Coronavirus 229E PCR Not Detected (NotDetected); Coronavirus CoV-2 (COVID19)PCR Not Detected (NotDetected); Coronavirus HKU1 PCR Not Detected (NotDetected); Coronavirus NL63 PCR Not Detected (NotDetected); Coronavirus OC43PCR Not Detected (NotDetected); Human Metapneumovirus PCR Not Detected (NotDetected); Influenza A PCR Not Detected (NotDetected); Influenza B PCR Not Detected (NotDetected); Mycoplasma pneumoniae PCR Not Detected (NotDetected); Parainfluenza Virus 1 PCR Not Detected (NotDetected); Parainfluenza Virus 2 PCR Not Detected (NotDetected); Parainfluenza Virus 3 PCR Not Detected (NotDetected); Parainfluenza Virus 4 PCR Not Detected (NotDetected); Respiratory Syncytial VirusPCR Not Detected (NotDetected); Rhinovirus/Enterovirus PCR Not Detected (NotDetected)
[2024-02-18] MEDS: FUROSEMIDE INJ 20 MG/2 ML VIAL IV ONE (20:34)
--- NOTE | 2024-02-18 21:09 | History & Physical Report ---
Date of Service February 18, 2024 Assessment & Plan (1) CHF (congestive heart failure): (2) Acute respiratory failure with hypoxia: (3) Hypertension: (4) Overactive bladder: (5) First degree atrioventricular block by electrocardiogram: (6) A-fib: (7) Diabetes mellitus, type II: (8) Hyperlipidemia: (9) History of CVA with residual deficit: (10) On continuous oral anticoagulation: Plan 88 yo female PMHx CHF, afib, 1st degree AV block, HTN, CVA, T2DM, depression, stress incontinence admitted for increasing SOB and hypoxia in the setting of stopping her PO Lasix approximately one week ago as discussed with her PCP. #CHF exacerbation Acute on chronic diastolic heart failure. Last echo 11/25/23 showed preserved ejection fraction, mitral valvular disease, elevated R ventricular presssure Will give Lasix 20mg IV BID Daily weights f/u BNP #Acute respiratory failure w/ hypoxia Due to CHF Wean oxygen as tolerated with goal O2>94% #Atrial fibrillation continue eliquis rate controlled with metoprolol #1st degree AV block continue digoxin #HTN continue amlodipine #T2DM Last A1c 6.6 metformin held ISS ACHS #HLD continue atorvastatin #Hx CVA Stable #Depression continue duloxetine #Urinary incontinence continue mirabegron FENGI: heart healthy, carb consistent Code status: full DVT prophylaxis: eliquis Isolation: none Disposition: med/tele History of Present Illness Primary Care Provider: Preston Moreno MD 88 yo female PMHx CHF, afib, 1st degree AV block, HTN, CVA, T2DM, depression, stress incontinence admitted for increasing SOB and hypoxia in the setting of stopping her PO Lasix approximately one week ago as discussed with her PCP. She was having difficulty getting to the bathroom, Lasix was changed to PRN for 2lb weight gain in one day, 5lb weight gain in one week. Has had progressively worsening SOB worse this afternoon/evening. EMS was called -patient was saturating in the 80s on RA, placed on nasal cannula and now saturating well in the 90s. In the interval since her appointment on 02/12/24 she has had a 3.4kg weight gain. Denies cough, CP, N/V; endorses SOB ED course: CXR: small b/l pleural effusion; Peribronchial thickening is seen compatible with infectious/inflammatory airways disease or viral pneumonia. No dafne consolidation is seen. No leukocytosis, afebrile, Trop negative, procal and BNP ordered/pending, respiratory biofire negative 1x dose of Lasix 20mg IV Allergies Allergy/AdvReac Type Severity Reaction Status Date / Time amoxicillin Allergy Intermediate RASH Verified 02/18/24 19:50 Penicillins Allergy Intermediate RASH Verified 02/18/24 19:50 pravastatin Allergy Intermediate MYALGIA Verified 02/18/24 19:50 simvastatin Allergy Intermediate MYALGIA Verified 02/18/24 19:50 dulaglutide [From [facility]] AdvReac Intermediate Vomiting Verified 02/18/24 19:50 Home Medications Medication Instructions Recorded Confirmed Type cyanocobalamin (vitamin B-12) 1,000 mcg PO QAM 01/27/19 02/18/24 History 1,000 mcg tablet (Vitamin B-12) sennosides 8.6 mg-docusate sodium 1 tab PO BID 01/27/19 02/18/24 History 50 mg tablet (Senna-S) aspirin 81 mg tablet,delayed 81 mg PO QAM 10/28/22 02/18/24 History release calcium carbonate 600 mg-vitamin 1 tab PO HS 11/06/22 02/18/24 History D3 10 mcg (400 unit) tablet (Calcium 600 + D(3)) atorvastatin 20 mg tablet 20 mg PO HS #90 tabs 03/13/23 02/18/24 Rx duloxetine 20 mg capsule,delayed 20 mg PO QAM #90 caps 03/13/23 02/18/24 Rx release apixaban 2.5 mg tablet (Eliquis) 2.5 mg PO BID #180 tabs 05/09/23 02/18/24 Rx metformin 500 mg tablet,extended 500 mg PO DAILY #90 tabs 08/07/23 02/18/24 Rx release 24hr (osmotic) acetaminophen 500 mg tablet 1,000 mg PO TID PRN Pain 08/28/23 02/18/24 History (Tylenol Extra Strength) digoxin 125 mcg (0.125 mg) tablet 125 mcg PO .COMPLEX #65 tabs 08/28/23 02/18/24 Rx (Digox) polyethylene glycol 3350 17 gram 17 g PO DAILY PRN Constipation 08/28/23 02/18/24 History oral powder packet (Miralax) amlodipine 5 mg tablet (Norvasc) 5 mg PO QAM #90 tabs 11/18/23 02/18/24 Rx betamethasone dipropionate 0.05 % 1 applic topical UD PRN Other 11/25/23 02/18/24 History topical cream metoprolol succinate 50 mg 50 mg PO BID #60 tabs 11/29/23 02/18/24 Rx tablet,extended release 24 hr pregabalin 75 mg capsule (Lyrica) 75 mg PO HS #90 caps 01/14/24 02/18/24 Rx cholecalciferol (vitamin D3) 25 1,000 unit PO DAILY 02/12/24 02/18/24 History mcg (1,000 unit) capsule (Vitamin D3) furosemide 20 mg tablet 20 mg PO DAILY PRN edema #90 tabs 02/12/24 02/18/24 Rx mirabegron 25 mg tablet,extended 25 mg PO QAM #90 tabs 02/12/24 02/18/24 Rx release 24 hr (Myrbetriq) potassium chloride 10 mEq 10 meq PO DAILY PRN When taking 02/12/24 02/18/24 Rx tablet,extended release(part/cryst) furosemide #90 tabs Past Med/Surg History Problem List (Updated 02/19/24 @ 13:02 by Esperanza Jackson PA-C) Hyperbilirubinemia Atrial fibrillation (Acute) CHF (congestive heart failure) (Acute) Hypoxia (Acute) Acute respiratory failure with hypoxia Syncope Periprosthetic fracture around internal prosthetic right hip joint, initial encounter (10/28/22) Periprosthetic fracture around internal prosthetic right hip joint from a fall Osteoporosis (Chronic) Altered mental status Hemarthrosis involving knee joint Hypertension (Acute) Acute blood loss anemia Right leg swelling Vitamin D deficiency (Acute) Stress incontinence in female (Acute) Primary localized osteoarthrosis of the hip (Acute) Polycythemia (Acute) Peripheral neuropathy (Acute) Overactive bladder (Acute) Neurologic gait dysfunction (Acute) Microscopic hematuria (Acute) Lumbar radiculopathy (Acute) Expressive aphasia (Acute) Dysphasia following cerebrovascular accident (CVA) (Acute) Disc degeneration, lumbar (Acute) Depression (Acute) Cystocele, midline (Acute) Bilateral carotid artery stenosis (Acute) Allergic rhinitis due to pollen (Acute) Gait abnormality Dizziness (Acute) Psoriasis Candidiasis of breast Anticoagulant long-term use First degree atrioventricular block by electrocardiogram Postmenopausal bleeding Sensorineural hearing loss (SNHL) of both ears Impacted cerumen of both ears B12 deficiency Medical History Periprosthetic fracture around internal prosthetic right hip joint, initial encounter (10/28/22) History of CVA with residual deficit Acute ischemic stroke Allergic rhinitis due to pollen Bilateral carotid artery stenosis Cystocele, midline Depression Diabetes mellitus type II, controlled Disc degeneration, lumbar Dysphasia following cerebrovascular accident (CVA) Expressive aphasia Hemorrhoids Lumbar radiculopathy Microscopic hematuria Neurologic gait dysfunction On continuous oral anticoagulation Overactive bladder Peripheral neuropathy Polycythemia Primary localized osteoarthrosis of the hip Stress incontinence in female Vitamin D deficiency Hypertension Fall Hip fracture V tach Lumbar stenosis with neurogenic claudication (03/16/14) CHF (congestive heart failure) (03/19/14) Atrial fibrillation Osteoporosis Surgical History S/P appendectomy S/P lumbar laminectomy S/P cataract surgery S/P total hip arthroplasty Family History Grandfather Coronary heart disease Mother Coronary heart disease Sister Diabetes Father Coronary heart disease Other Family history non-contributory Denies family history of Ovarian cancer Prostate cancer Myocardial infarction Breast cancer Colorectal cancer Social History Smoking Status: Never smoker Second Hand Exposure: No; Do You Dip or Chew Tobacco: No; Hx Alcohol Use: No Hx Substance Use: No Preferred Language: Spanish Communication Ability: Effective Visual Impairment: No Limitations Hearing Ability: Use of Hearing Aid Pipe Manufacture Supervisor Required: No Beliefs That Will Affect Care: None marital status: / Current Living Situation: Alone Current Living Situation Comment: daughter and caregiver help current occupational status: retired 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 How many Children do You have: 1 Other Information That Helps Us Care for You: No Feels Safe at Home: Yes Safety Concerns: Feels Safe At This Time Childhood Exposure to Second-Hand Smoke: No Diet: regular caffeine: Yes during the past year weight has: remained stable Dental Care, Regularly: Yes Physical Activity Frequency: 1-2 Times per Week Seatbelt Use: always Sunscreen Use: Yes Assistive Devices: Walker Review of Systems Review of Systems: reviewed, per HPI Physical Exam Physical Exam: Constitutional: no acute distress HEENT: NCAT, no conjunctival injection CV: regular rhythm, no murmur appreciated, extremities well-perfused, +1 b/l LE edema, +JVD/hepatojugular reflux Resp: Good air entry b/l, on 2L NC breathing comfortably, no wheeze, mild b/l ronchi in lower lung taylor GI: soft, nondistended MSK: no gross deformities appreciated Skin: warm, dry, no rash appreciated Neuro: alert, oriented, no focal neurologic deficit appreciated Results & Data Results & Data Vital Signs (Past 12 Hours) Vital Signs Temp Pulse Resp BP Pulse Ox O2 Del Method O2 Flow Rate 02/18/24 20:06 69 17 142/75 H 97 Room Air 02/18/24 19:36 67 22 93 02/18/24 19:24 73 18 90 02/18/24 19:02 152/66 H 02/18/24 18:51 75 17 89 L 02/18/24 18:42 61 22 97 Nasal Cannula 4 02/18/24 18:12 68 21 02/18/24 18:01 143/73 H 02/18/24 17:57 69 02/18/24 17:49 95 Nasal Cannula 4 02/18/24 17:45 61 24 94 02/18/24 17:27 84 L Room Air 0 02/18/24 17:27 36.7 C 80 16 146/59 H 94 Room Air 02/18/24 17:27 Nasal Cannula 4 Code Status & VTE Plan VTE Prophylaxis Plan VTE Prophylaxis will be ordered: No Supervising Physician Co-Signing Physician Notes Attending addendum: I have physically seen this patient, have supervised the medical residents activities, and agree with the H&P unless as otherwise noted. Assessment and Plan: HFpEF exacerbation/atrial fibrillation/acute respiratory failure with hypoxia/hypertension- The patient will be admitted to telemetry for serial cardiac enzymes, serial EKG's, cardiac rhythm monitoring Most recent echo from 11/25/2023 with ejection fraction 60-65%, moderate mitral stenosis, and aortic valve sclerosis without stenosis Given furosemide 20 mg IV from the ED Furosemide 20 mg IV twice daily Change to potassium to 20 mill equivalents p.o. daily Continue amlodipine, apixaban, aspirin, metoprolol succinate, digoxin Serial renal function panel and magnesium levels in the a.m. Diabetes mellitus- Hold metformin Placed on Accu-Cheks with NovoLog SSI Hyperlipidemia- Continue atorvastatin Resident Activity Tracking Resident Involvement: Resident Care Provided Care Provided: Adult Hospital Medicine (3) Hypertension Hypertension type: essential hypertension Qualified Code(s): I10 - Essential (primary) hypertension
[2024-02-18] MEDS ORDERED: GLUCOSE 10 TAB/TUBE PO PRN (23:44)
[2024-02-18] MEDS ORDERED: ONDANSETRON INJ 2 MG/ML 2 ML VIAL IV PRN (23:44)
[2024-02-18] MEDS ORDERED: ALUMINUM/MAGNESIUM SUSP 30 ML UDC PO PRN (23:44)
[2024-02-18] MEDS ORDERED: POLYETHYLENE (MIRALAX) 17 GM PACK PO PRN ×2 (23:44)
[2024-02-18] MEDS ORDERED: POTASSIUM CHLORIDE 10 MEQ TABCR PO PRN (23:44)
[2024-02-18] MEDS ORDERED: GLUCAGON FOR INJ 1 MG VIAL SQ PRN (23:44)
[2024-02-18] MEDS ORDERED: DEXTROSE 50% 50 ML SYRINGE IV PRN (23:44)
[2024-02-18] MEDS ORDERED: GLUCOSE 40% GEL 15 GM TUBE PO PRN (23:44)
[2024-02-18] MEDS ORDERED: MAGNESIUM HYDROXIDE SUSP 30 ML UDC PO PRN (23:44)
[2024-02-18] MEDS ORDERED: CARBOHYDRATES FOR HYPOGLYCEMIA PO PRN (23:44)
[2024-02-19] MEDS: ACETAMINOPHEN 325 MG TAB PO PRN (00:49)
[2024-02-19] MEDS: FUROSEMIDE INJ 20 MG/2 ML VIAL IV ONE (00:54)
[2024-02-19] MEDS: APIXABAN 2.5 MG TAB PO SCH (00:55)
[2024-02-19] MEDS: METOPROLOL SUCC 50MG EXT REL TAB PO SCH (00:55)
[2024-02-19] MEDS: DOCUSATE SODIUM/SENNA 50/8.6MG TAB PO SCH (00:55)
[2024-02-19] MEDS: ATORVASTATIN 20 MG TAB PO SCH (00:55)
[2024-02-19] MEDS: CALCIUM 600MG + VIT D 400 IU TAB PO SCH (00:56)
[2024-02-19] MEDS: PREGABALIN 75 MG CAP PO SCH (01:01)
[2024-02-19] MEDS: INSULIN ASPART PER UNIT CHARGE SC SCH (01:01)
[2024-02-19] MEDS: CHOLECALCIFEROL 25 MCG (1000 UNITS) TAB PO SCH (08:33)
[2024-02-19] MEDS: CYANOCOBALAMIN (B-12) 500 MCG TABLET PO SCH (08:33)
[2024-02-19] MEDS: DULoxetine HCL 20 MG CAP PO SCH (08:33)
[2024-02-19] MEDS: POTASSIUM CHLORIDE CRTAB 20 MEQ TABCR PO SCH (08:33)
[2024-02-19] MEDS: VIBEGRON 75 MG TAB PO SCH (08:34)
[2024-02-19] MEDS: amLODIPine BESYLATE 5 MG TAB PO SCH (08:34)
[2024-02-19] MEDS: ASPIRIN 81 MG ECTAB PO SCH (08:34)
[2024-02-19] MEDS: FUROSEMIDE INJ 20 MG/2 ML VIAL IV SCH (08:40)
--- NOTE | 2024-02-19 09:48 | Electrocardiogram Report ---
Test Reason : Blood Pressure : / mmHG Vent. Rate : 057 BPM Atrial Rate : 000 BPM P-R Int : 000 ms QRS Dur : 078 ms QT Int : 440 ms P-R-T Axes : 000 -41 061 degrees QTc Int : 428 ms Atrial fibrillation with slow ventricular response Left axis deviation Nonspecific ST abnormality Abnormal ECG When compared with ECG of 25-NOV-2023 10:56, QRS axis Shifted left Confirmed by Preston Baker ([id number]) on 02/19/2024 9:47:58 AM Referred By: Suzy Muniz Confirmed By:Dandy Baker
--- NOTE | 2024-02-19 12:05 | Hospitalist Progress Note ---
Date of Service February 19, 2024 Assessment & Plan (1) CHF (congestive heart failure): Plan: Patient presented to the ED with complaints of shortness of breath. She was found to be in CHF exacerbation after stopping Lasix 20mg daily approx. 1 week ago. -Patient reports symptom improvement today -last vitals read 97 on room air. (time of encounter patient was on 2L O2) -Reviewed CXR which revealed small b/l pleural effusions and concern for viral pneumonia -reviewed PCR serologies from 02/17 which were negative. -Continue Lasix 20mg IV BID. -Will plan to transition to Lasix 40mg every other day upon discharge. -Reviewed BNP from 02/17 elevated at 641. Will plan to check in AM. -Reviewed Echo from 11/2023 which showed preserved EF, mitral valvular disease, elevated R ventricular pressure. -Continue Daily weights. (2) Acute respiratory failure with hypoxia: Plan: -due to volume overload/CHF -patient weaned to room air with O2 sat of 97% -continue to monitor oxygenation status. -O2 goal > 94% (3) Hyperbilirubinemia: Plan: -total bilirubin reviewed 02/17 which was found to be elevated at 1.9 -will obtain direct bilirubin levels and repeat CMP in AM -could consider abdominal US dependent upon AM lab results. Plan Chronic conditions: -A fib: Continue Metoprolol and Eliquis -1st degree AV block: continue Digoxin -Hypertension: continue amlodipine -Type 2 Diabetes: hold metformin while hospitalized. Last A1c 6.6. ISS ACHS -Hyperlipidemia: continue atorvastation -history CVA: stable -depression: continue duloxetine -urinary incontinence: continue mirabegron Diet: heart healthy, carb consistent Code status: full DVT prophylaxis: eliquis Isolation: none disposition: med/tele Admission and Anticipated Discharge Date Admission Date: February 18, 2024 Subjective Patient seen and examined this morning at bedside. Patient reports she stopped her lasix after her PCP visit about one week ago. They had discussed it was no longer needed daily and just on an as needed basis. Today she feels she has improved. She was on 2L of O2 at time of encounter. She denied chest pain or shortness of breath. She does not typically require oxygenation at home. Physical Exam 2 Constitutional: WD/WN, vitals as above Eyes: PERRL, conjunctivae normal, anicteric sclerae Respiratory: normal respiratory effort, lungs clear to auscultation Cardiovascular: RRR, no murmur, no edema Musculoskeletal: no cyanosis or clubbing, extremities motor strength 5/5 Skin: no rashes, warm and dry Neurologic: PERRL, EOMI, accommodation nl, no face palsy, no dysarthria Psychiatric: A+Ox3, euthymic affect Results & Data Results & Data Vital Signs (Past 12 Hours) Vital Signs Temp Pulse Pulse Resp BP Pulse Ox O2 Del Method 02/19/24 11:11 73 02/19/24 11:09 36.5 C 65 18 106/69 97 Room Air 02/19/24 08:07 36.4 C L 69 18 132/73 98 Nasal Cannula 02/19/24 03:42 36.5 C 63 16 118/71 93 Nasal Cannula 02/19/24 00:00 Nasal Cannula 02/18/24 23:44 36.4 C L 74 16 155/85 H 95 Nasal Cannula O2 Flow Rate 02/19/24 11:11 02/19/24 11:09 02/19/24 08:07 3 02/19/24 03:42 4 02/19/24 00:00 4 02/18/24 23:44 4 Laboratory Results 02/18/24 17:35 02/18/24 17:35 Diagnostic Findings Chest X-Ray 02/18/24 17:49 XR chest 1V portable CLINICAL HISTORY: Chest pain, nonspecific IMPRESSION: 1. Peribronchial thickening is seen compatible with infectious/inflammatory airways disease or viral pneumonia. No dafne consolidation is seen. 2. Small bilateral pleural effusions. Electronically signed by: James Fontenot M.D. 02/18/2024 6:43 PM PG Care Time/CCT Total # of Minutes Spent Total Time Spent with Patient: Total time spent is greater than 50% in coordination of care (as documented) at patient's floor/unit and/or counseling patient: Coding Level of Care Code 68474 SUB INP/OBS CARE 3/50MIN Diagnoses Acute on chronic diastolic congestive heart failure I50.33 Heart failure chronicity: acute on chronic Heart failure type: diastolic Acute respiratory failure with hypoxia J96.01 Hyperbilirubinemia E80.6 (1) CHF (congestive heart failure) Heart failure chronicity: acute on chronic Heart failure type: diastolic Qualified Code(s): I50.33 - Acute on chronic diastolic (congestive) heart failure
[2024-02-19] MEDS: DIGOXIN 0.125 MG TAB PO SCH (17:10)
--- NOTE | 2024-02-19 19:16 | Billing Data ---
Date of Service February 19, 2024 Coding Level of Care Code 62228 INT INP/OBS CARE
[2024-02-20 07:41] VITALS: RESP 18; O2SAT 95
[2024-02-20 09:08] LABS: Hematocrit (blood only) 41.6 % (37.0-47.0); Hemoglobin 13.5 g/dl (12.0-16.0); Mean Corpuscular Hemoglobin 32.8 pg (25.0-34.0); Mean Corpuscular Hgb Conc 32.5 g/dL (32.0-36.0); Mean Corpuscular Volume 101.2 fL (80.0-100.0); Mean Platelet Volume 10.4 fL (9.4-12.4); Platelet Count 211 K/uL (130-400); RDW Coefficient of Variation 17.6 % (11.5-14.5); RDW Standard Deviation 64.1 fL (36.4-46.3); Red Blood Count 4.11 M/uL (4.20-5.40); White Blood Count 7.86 K/ul (4.8-10.8)
[2024-02-20 09:19] LABS: Albumin Globulin Ratio 1.3 (0.9-2); Albumin Level 4.3 gm/dl (3.4-5.0); BUN Creatinine Ratio 29.7 (10-20); Bilirubin Direct 0.3 mg/dl (0-0.2); Bilirubin,Total 1.5 mg/dl (0.2-1.0); Calcium 10.1 mg/dl (8.6-10.3); Creatinine Clr Calc Pharmacy 37.3 ml/min; Est GFR (African American) 66.2 ml/min; Est GFR (Non-African American) 57.1 ml/min; Globulin 3.3 gm/dl (2.5-4.0); Potassium 4.4 mmol/L (3.5-5.1); Total Protein 7.6 gm/dl (6.0-8.3)
[2024-02-20 12:31] VITALS: PULSE 54; TEMP 97.3
--- NOTE | 2024-02-20 13:21 | XRay Report ---
PA CHEST RADIOGRAPH AND UPRIGHT AND SUPINE AP RADIOGRAPHS OF THE ABDOMEN CLINICAL HISTORY: Lower abdominal pain. COMPARISON STUDY: Chest radiograph February 18, 2024. CT of the abdomen and pelvis October 31, 2016. FINDINGS: There is no pneumothorax. Small bilateral pleural effusions are again noted. Bibasilar opa cities have improved. Pulmonary edema has improved since prior exam. Cardiomediastinal silhouette is stable. No consolidation is identified to suggest pneumonia. There is no evidence for free air. The b owel gas pattern is normal. There is a moderate amount of stool within the sigmoid colon and rectum. Bilateral hip arthroplasties are partially imaged. There is lumbar spine dextroscoliosis. IMPRESSION: 1. No free air or evidence for a bowel obstruction. 2. Moderate amount of stool within the sigmoid colon and rectum. 3. Interval improvement in pulmonary edema. Small bilateral pleural effusions. ACT 112: Negative or not required by law. Electronically signed by: Cornelio Davison M.D. 02/20/2024 1:19 PM
--- NOTE | 2024-02-20 13:50 | Ultrasound Report ---
ABDOMINAL ULTRASOUND, RIGHT UPPER QUADRANT HISTORY: hyperbilirubinemia, abdominal pain. COMPARISON: Abdominal series February 20, 2024. CT of the abdomen and pelvis October 31, 2016. FINDINGS: Right pleural effusion is incidentally noted. No hepatic lesions are identified. There is n o biliary ductal dilatation. The common bile duct measures 3 mm in caliber. The gallbladder is normal . There are no gallstones. Pancreas is largely obscured by overlying bowel gas. There is no right hyd ronephrosis. IMPRESSION: 1. No gallstones or biliary ductal dilatation. 2. Partially obscured pancreas. 3. Incidentally noted right pleural effusion. ACT 112: Negative or not required by law. Electronically signed by: Cornelio Davison M.D. 02/20/2024 1:48 PM
--- NOTE | 2024-02-20 15:55 | Discharge Summary ---
Date of Service February 20, 2024 Admission HPI Per Admitting Provider 88 yo female PMHx CHF, afib, 1st degree AV block, HTN, CVA, T2DM, depression, stress incontinence admitted for increasing SOB and hypoxia in the setting of stopping her PO Lasix approximately one week ago as discussed with her PCP. She was having difficulty getting to the bathroom, Lasix was changed to PRN for 2lb weight gain in one day, 5lb weight gain in one week. Has had progressively worsening SOB worse this afternoon/evening. EMS was called -patient was saturating in the 80s on RA, placed on nasal cannula and now saturating well in the 90s. In the interval since her appointment on 02/12/24 she has had a 3.4kg weight gain. Denies cough, CP, N/V; endorses SOB ED course: CXR: small b/l pleural effusion; Peribronchial thickening is seen compatible with infectious/inflammatory airways disease or viral pneumonia. No dafne consolidation is seen. No leukocytosis, afebrile, Trop negative, procal and BNP ordered/pending, respiratory biofire negative 1x dose of Lasix 20mg IV Principal Diagnosis Congestive Heart Failure Discharge Exam Constitutional WD/WN, vitals as above Eyes PERRL, conjunctivae normal, anicteric sclerae ENMT external ear and nose normal, oropharynx normal Respiratory normal respiratory effort, lungs clear to auscultation Cardiovascular RRR, no murmur, no edema Gastrointestinal (Abdomen) normal bowel sounds, soft, nontender, no hepatosplenomegaly Neurologic PERRL, EOMI, accommodation nl, no face palsy, no dysarthria Psychiatric A+Ox3, euthymic affect Discharge Data Allergies Allergy/AdvReac Type Severity Reaction Status Date / Time amoxicillin Allergy Intermediate RASH Verified 02/18/24 19:50 Penicillins Allergy Intermediate RASH Verified 02/18/24 19:50 pravastatin Allergy Intermediate MYALGIA Verified 02/18/24 19:50 simvastatin Allergy Intermediate MYALGIA Verified 02/18/24 19:50 dulaglutide [From [facility]] AdvReac Intermediate Vomiting Verified 02/18/24 19:50 Consultations 02/18/24 20:13 ED Decision to Admit Stat Ordered Studies 02/20/24 08:36 02/20/24 08:36 Chest X-Ray 02/18/24 17:49 XR chest 1V portable CLINICAL HISTORY: Chest pain, nonspecific IMPRESSION: 1. Peribronchial thickening is seen compatible with infectious/inflammatory airways disease or viral pneumonia. No dafne consolidation is seen. 2. Small bilateral pleural effusions. Electronically signed by: James Fontenot M.D. 02/18/2024 6:43 PM Abdomen Ultrasound 02/20/24 10:20 ABDOMINAL ULTRASOUND, RIGHT UPPER QUADRANT IMPRESSION: 1. No gallstones or biliary ductal dilatation. 2. Partially obscured pancreas. 3. Incidentally noted right pleural effusion. Electronically signed by: Cornelio Davison M.D. 02/20/2024 1:48 PM Chest/Abdomen X-ray 02/20/24 10:20 PA CHEST RADIOGRAPH AND UPRIGHT AND SUPINE AP RADIOGRAPHS OF THE ABDOMEN CLINICAL HISTORY: Lower abdominal pain. IMPRESSION: 1. No free air or evidence for a bowel obstruction. 2. Moderate amount of stool within the sigmoid colon and rectum. 3. Interval improvement in pulmonary edema. Small bilateral pleural effusions. Electronically signed by: Cornelio Davison M.D. 02/20/2024 1:19 PM Vital Signs Temp 36.3 C L 02/20/24 12:30 Pulse 54 L 02/20/24 12:30 Resp 18 02/20/24 12:30 BP 136/79 02/20/24 12:30 Pulse Ox 95 02/20/24 12:30 O2 Del Method Room Air 02/20/24 12:30 O2 Flow Rate 3 02/19/24 08:07 Intake & Output 02/19/24 02/20/24 02/20/24 18:59 06:59 18:59 Intake Total 755 / 1405 650 / 1405 6235 / 6235 Output Total 1400 / 2550 1150 / 2550 1000 / 1000 Balance -645 / -1145 -500 / -1145 5235 / 5235 Weight 53.7 kg 52.6 kg 53.3 kg Intake: Oral 755 / 1405 650 / 1405 6235 / 6235 Output: Urine 1400 / 2550 1150 / 2550 1000 / 1000 Other: Weight Measurement Method Standing Scale Standing Scale Standing Scale Hospital Course (1) CHF (congestive heart failure): Patient originally reported to the ED with complaints of shortness of breath on 02/18/2024. She was found to be in a CHF exacerbation after stopping Lasix 20mg daily approximately 1 week ago. Upon admission she was given O2 via nasal cannula. Upon discharge she was transitioned to room air with an O2 Sat of 95%. She had PCR serologies on 02/18/2024 that were negative for respiratory illnesses. Her latest chest x-ray on 02/20/2024 noted improvement of pulmonary edema and small bilateral pleural effusions. She was given Lasix 20mg IV BID in the hospital and transitioned to Lasix 40mg every other day on discharge. Her BNP was originally elevated at 641 and upon discharge was decreased to 265. Her echocardiogram from November of 2023 was also reviewed that revealed preserved EF, mitral valvular disease, and elevated R ventricular pressure. (2) Acute respiratory failure with hypoxia: She was found to be hypoxic and given O2 vial nasal cannula. This was due to CHF. Upon discharge she was on room air with an O2 Sat of 95. Oxygenation goal was > 94%. She denied any further shortness of breath on 02/20/2024. (3) Hyperbilirubinemia: Patient was incidentally found to have hyperbilirubinemia on 02/18/2024 with a total bilirubin of 1.9. On 02/19/2024 this was rechecked and found to be 1.5 with a direct bilirubin of 0.3. On 02/20/2024 patient did complain of lower abdominal pain and an abd XR and US were completed. XR was consistent with constipation in sigmoid and rectum. Patient reports she has miralax at home and was encouraged to take 1 capful daily to every other day. Abdominal US was negative for any acute pathology. 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 Plan Patient was continued on medications for her chonic conditions. This included metoprolol and eliquis for A fib. Digoxin for 1st degree AV block. Amlodipine for hypertension. Atorvastatin for hyperlipidemia. Duloxetine for depression and mirabegron for urinary incontinence. ACHS used for diabetes. She was placed on a heart healthy and carb consistent diet. She was a full code. Her DVT prophylaxis was Eliquis. PT evaluated the patient on 02/20/2024 and recommended home health services. This was discussed with case management and home health therapy will begin tentatively on 02/24/2024. Total Time Total Time Spent Total Time Spent (In Minutes): 45 Discharge Plan Discharge Items Patient Disposition: Home - Home Health Services Reason For Visit: CHF Discharge Diagnosis: Congestive Heart Failure Activity: Per Instructions section Activity Comment: Gradually resume previous activity Non-emergency contact: Primary Care Provider Call non-emergency contact if: you have any medication questions and your symptoms worsen Follow-up/Referrals: Preston Moreno MD [Primary Care Provider] - 02/28/24 11:00 am (appointment is with Angelika Brown PA-C) Diet: Carb Consistent or DM2 and Heart Healthy Addtl Attending Provider Instructions: Mrs. Young, You were hospitalized for an exacerbation of your congestive heart failure. After stopping your Lasix pill a week ago, you began to retain fluid which caused shortness of breath. Please see recommendations below. -Please start taking Lasix 40mg every other day on 02/22/2024. -On the days you take your Lasix please also take your potassium supplement as previously prescribed by your PCP. -You were also found to have high bilirubin levels on your lab work. Imaging of your abdomen was negative for any abnormalities regarding your gallbladder, liver, and bile ducts. This abnormal value is likely related to your heart failure. -You also experienced some abdominal pain while in the hospital and an abdominal x-ray was obtain. This did reveal some constipation so a daily bowel regimen would be helpful to avoid worsening symptoms. -During our encounter, you had mentioned you have Miralax at home. Please take 1 capful daily to every other day to help produce adequate bowel movements. -We have also arranged home health therapy and they will tentatively start on 02/24/2024. For your chronic conditions: -Continue Metoprolol and Eliquis for management of your Atrial Fibrillation -Continue Digoxin for management of your 1st Degree AV block. -Continue Amlodipine for management of your high blood pressure. -Continue Atorvastatin for management of your high cholesterol. -Please resume your previous diabetic medication -Please continue duloxetine for management of your depression. -Please follow up with your PCP within 1-2 weeks of discharge. 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 -If you experience any worsening of your symptoms including, shortness of breath, chest pain, coughing, increased weakness please report back to the emergency room for further evaluation. Sincerely, Esperanza Reavestl Labor Mediator Provider Instructions: Call 911 and go to the Emergency Room if: * You have tightness or pain in your chest that does not go away with rest or Nitroglycerin * You are very short of breath even with rest Call your doctor if any of the following symptoms or problems start or get worse: * Shortness of breath or difficulty breathing * Wake up at night short of breath * Chest pain * Cough * Swelling of your hands, fee, or legs * More fatigued or tired with your normal activity * Palpitations - sudden fast heart beats WEIGHT * Weigh yourself every morning after using the bathroom. * Use the same scale. * Wear the same amount of clothing. * Write your weight down on your chart. * Call your doctor if you gain more than 2-3 pounds in 1-2 days. MEDICATIONS * Use this discharge instruction sheet for instructions. * Take your medications at the time your doctor ordered. * Do not skip a dose of your medicines. * If you miss a dose of medicine, take as soon as possible, but DO NOT DOUBLE A DOSE. * Read your medicine information when you get home. * Know all of the side effects of your medicine. * Call your doctor's office if you have any side effects. * Be sure all of your doctors know what medicine and herbs you take (including cold, flu, and herbal medicine). * Pain Medicine: If you do not get relief from your pain, please call your doctor for help. Take the following with you to your follow-up doctor appointments: * Weight Chart * Medication List * List of questions Do not drink excessive alcohol, beer or wine. Pending Studies at Discharge: No Stand-Alone Forms: [facility], Smoking Cessation Medications and DC Order Prescriptions: New furosemide [Lasix] 40 mg tablet 40 mg PO Q OTHER DAY Qty: 30 0RF Continued duloxetine 20 mg capsule,delayed release(DR/EC) 20 mg PO QAM Qty: 90 3RF atorvastatin 20 mg tablet 20 mg PO HS Qty: 90 3RF Eliquis 2.5 mg tablet 2.5 mg PO BID Qty: 180 3RF metformin 500 mg tablet extended release 24hr 500 mg PO DAILY Qty: 90 3RF Rx Instructions: dose decreased back to DAILY due to GI effects per DR Barcenas amlodipine [Norvasc] 5 mg tablet 5 mg PO QAM Qty: 90 3RF pregabalin [Lyrica] 75 mg capsule 75 mg PO HS Qty: 90 1RF polyethylene glycol 3350 [Miralax] 17 gram powder in packet 17 g PO DAILY PRN (Reason: Constipation) acetaminophen [Tylenol Extra Strength] 500 mg tablet 1,000 mg PO TID PRN (Reason: Pain) digoxin [Digox] 125 mcg (0.125 mg) tablet 125 mcg PO .COMPLEX Qty: 65 3RF Rx Instructions: 125 mcg orally 5 days qam/week; NONE ON MON & FRI Myrbetriq 25 mg tablet extended release 24 hr 25 mg PO QAM Qty: 90 3RF potassium chloride 10 mEq tablet,ER particles/crystals 10 meq PO DAILY PRN (Reason: When taking furosemide) Qty: 90 3RF cholecalciferol (vitamin D3) [Vitamin D3] 25 mcg (1,000 unit) capsule 1,000 unit PO DAILY cyanocobalamin (vitamin B-12) [Vitamin B-12] 1,000 mcg Tablet 1,000 mcg PO QAM sennosides-docusate sodium [Senna-S] 8.6-50 mg Tablet 1 tab PO BID aspirin 81 mg Tablet,Delayed Release (Dr/Ec) 81 mg PO QAM calcium carbonate-vitamin D3 [Calcium 600 + D(3)] 600 mg-10 mcg (400 unit) Tablet 1 tab PO HS betamethasone dipropionate 0.05 % cream 1 applic TOPICAL UD PRN (Reason: Other) metoprolol succinate 50 mg Tablet Extended Release 24 Hr 50 mg PO BID Qty: 60 0RF Discontinued furosemide 20 mg tablet 20 mg PO DAILY PRN (Reason: edema) Qty: 90 3RF Discharge Orders: Discharge Order- CHF (Routine); Ordered 02/20/24 Ordered By: Esperanza Jackson Admission Data Admit Date/Time: 02/18/24 20:59 Attending Provider: Dustin Avendano Admit Provider: Ilan Ramirez Primary Care Provider: Preston Moreno Other Providers: [facility]ake,Home Care Other Interventions: Discharge Summary Assessment (RN) Last Done: 02/20/24 16:04 Supervising Physician Co-Signing Physician Notes During face to face encounter, I obtained a brief physical examination, discussed hospital stay with patient and discharge instructions with patient. I discussed discharge plan of care with FAITH Jackson. I reviewed above note and agree with it except for the following: Patient admitted with what appears to be acute CHF. PAtient placed on diuretics and improved. Her lungs were clear at discharge. Interesting though was how her fluid intake balance was +5 liters, though her BNP improved and symptoms improved. Likely either an error on the fluid intake sheet, or perhaps this could have been a viral pneumonia. Given lack of symptoms from a viral illness, this is likely CHF. Coding Level of Care Code 53597 INP/OBS DISCH >30 MIN Diagnoses Acute on chronic diastolic congestive heart failure I50.33 Heart failure chronicity: acute on chronic Heart failure type: diastolic Acute respiratory failure with hypoxia J96.01 Hyperbilirubinemia E80.6
[2024-02-20 16:10] VITALS: BP 106/66
== END 2024-02-20 16:56 | disposition home health service (06) | DRG 291 ==
LOC: ED 17:17 → SUATTDRO 20:59 → 2W 20:59
DX: E11.9 Type 2 diabetes mellitus without complications; Z88.8 Allergy status to other drugs, medicaments and biological substances; F32.A Depression, unspecified; Z79.01 Long term (current) use of anticoagulants; N32.81 Overactive bladder; I44.0 Atrioventricular block, first degree; I05.9 Rheumatic mitral valve disease, unspecified; Z88.0 Allergy status to penicillin; I48.91 Unspecified atrial fibrillation; K76.1 Chronic passive congestion of liver; J96.01 Acute respiratory failure with hypoxia; Z79.84 Long term (current) use of oral hypoglycemic drugs; N39.3 Stress incontinence (female) (male); E78.5 Hyperlipidemia, unspecified; Z79.82 Long term (current) use of aspirin; I50.33 Acute on chronic diastolic (congestive) heart failure; E80.6 Other disorders of bilirubin metabolism; Z79.899 Other long term (current) drug therapy; K59.00 Constipation, unspecified; I11.0 Hypertensive heart disease with heart failure

== ENCOUNTER 2024-11-24 21:09 | Inpatient (IN) ==
[2024-11-24 21:27] LABS: Base Excess VBG 3.2 mEq/L; HCO3 VBG 29 mmol/L; Oxygen Saturation VBG < 60.0 %; PCO2 VBG 45 mmHg (38-50); PO2 VBG 21 mmHg; pH VBG 7.41 (7.36-7.41)
--- NOTE | 2024-11-24 21:27 | Emergency Department Note ---
Impression & Plan Acute hypoxemic respiratory failure, Breath shortness ED Provider Note NAME: FLYNN GABRIEL AGE: 89 SEX: F : 1935 ARRIVES VIA: Ambulance INFORMANT: Patient ED PROVIDER(S): Sacha Cadena DO CHIEF COMPLAINT: Shortness of breath HPI: Patient is an 89-year-old female with a past medical history of CHF, A-fib on apixaban, and lumbar radiculopathy who presents to the ER for shortness of breath which started today. She admits to a cough and congestion but notes that this has been present for over a week. She denies any headache or change in vision. No chest pain. No belly pain, nausea, vomiting, or diarrhea. No dysuria, urgency, or frequency. No other exacerbating or remitting factors. ADDITIONAL HISTORY OBTAINED: Per HPI Chronic Medical/Social Conditions Affecting Care: Per HPI PAST MEDICAL HISTORY:See Below PAST SURGICAL HISTORY:See Below FAMILY HISTORY:See Below SOCIAL HISTORY:See Below HOME MEDICATIONS:See Below ALLERGIES:See Below VITALS:See Below PHYSICAL EXAMINATION: GENERAL: Sitting up in bed, alert, well appearing, on nasal cannula EYE EXAM: normal conjunctiva. PERRL and EOM's grossly intact. OROPHARYNX: no exudate, no erythema, lips, buccal mucosa, and tongue normal and mucous membranes are moist NECK: supple, no nuchal rigidity, no adenopathy, non-tender LUNGS: Clear to auscultation. Normal chest wall mechanics HEART: no murmurs, S1 normal and S2 normal ABDOMEN: abdomen soft, non-tender, normo-active bowel sounds, no masses, no rebound or guarding. UPPER EXTREMITIES: upper extremities are grossly normal. LOWER EXTREMITIES: No pitting edema. Calves are equal bilaterally NEURO EXAM: Normal sensorium, cranial nerves II-XII grossly intact, normal speech, no gross weakness of arms, no gross weakness of legs. MEDICAL DECISION MAKING: Patient is an 89-year-old female who presents ER for the above-stated complaint. IV was established and blood work was obtained. Labs show no significant leukocytosis or anemia. VBG was fairly unremarkable. BMP along with LFTs was unremarkable. T. bili at 1.7. BNP slightly elevated at 1000. Troponin was negative. Lipase normal. Viral panel was negative. Chest x-ray with a subtle opacity on the right lower which is increased from previous. Patient was covered with Rocephin. Patient rested comfortably on 3 to 4 L nasal cannula. Patient was discussed with the hospitalist for further evaluation management treatment. Considered PE but patient is on apixaban. Consults/Care Managements Discussions: Per MDM Triage Nursing notes reviewed. Limited review of prior medical records performed Vital Signs: reviewed and remarkable for no significant abnormalities Differential diagnosis: Differential diagnoses includes but is not limited to pneumonia, bronchitis, COPD/Asthma exacerbation, pneumothorax, pulmonary embolism, congestive heart failure, acute coronary syndrome ER treatment provided: See below Diagnostics interpreted by me include EKG and cardiac monitoring as listed below: -Cardiac Monitoring: An order was placed for continuous cardiac monitoring. The monitor shows a rate of 85 with sinus rhythm. -ECG: A-fib rate 85 Left axis No PVCs QTc 456 -Laboratory studies:Interpreted by me as stated above in MDM and shown below. Imaging studies: Xrays: As interpreted by me: Portable AP upright 1 view of the chest shows right lower lobe opacity and left lower lobe as well CTs show: none Procedures:none Critical Care: I have personally spent 44 minutes of critical care time in the direct management of this patient. This includes bedside care, interpretation of diagnostic studies, and testing, discussion with consultants, patient, and family members, and other required patient management activities. This 44 minutes is in excess of all separately billable procedures. Past Med/Surg History Problem List (Updated 11/25/24 @ 01:16 by Sacha Cadena DO) Breath shortness (Acute) Acute hypoxemic respiratory failure (Acute) Hyperbilirubinemia Atrial fibrillation (Acute) CHF (congestive heart failure) (Acute) Hypoxia (Acute) Acute respiratory failure with hypoxia Syncope Periprosthetic fracture around internal prosthetic right hip joint, initial encounter (10/28/22) Periprosthetic fracture around internal prosthetic right hip joint from a fall Osteoporosis (Chronic) Altered mental status Hemarthrosis involving knee joint Hypertension (Acute) Acute blood loss anemia Right leg swelling Vitamin D deficiency (Acute) Stress incontinence in female (Acute) Primary localized osteoarthrosis of the hip (Acute) Polycythemia (Acute) Peripheral neuropathy (Acute) Overactive bladder (Acute) Neurologic gait dysfunction (Acute) Microscopic hematuria (Acute) Lumbar radiculopathy (Acute) Expressive aphasia (Acute) Dysphasia following cerebrovascular accident (CVA) (Acute) Disc degeneration, lumbar (Acute) Depression (Acute) Cystocele, midline (Acute) Bilateral carotid artery stenosis (Acute) Allergic rhinitis due to pollen (Acute) Gait abnormality Dizziness (Acute) Psoriasis Candidiasis of breast Anticoagulant long-term use First degree atrioventricular block by electrocardiogram Postmenopausal bleeding Sensorineural hearing loss (SNHL) of both ears Impacted cerumen of both ears B12 deficiency Medical History Acute ischemic stroke Diabetes mellitus type II, controlled Hemorrhoids Fall Hip fracture V tach Atrial fibrillation Surgical History S/P appendectomy S/P lumbar laminectomy S/P cataract surgery S/P total hip arthroplasty Family History Grandfather Coronary heart disease Mother Coronary heart disease Sister Diabetes Father Coronary heart disease Other Family history non-contributory Denies family history of Ovarian cancer Prostate cancer Myocardial infarction Breast cancer Colorectal cancer Social History Smoking Status: Never smoker Second Hand Exposure: No; Do You Dip or Chew Tobacco: No; Hx Alcohol Use: No Hx Substance Use: No Preferred Language: Persian Communication Ability: Effective Visual Impairment: No Limitations Hearing Ability: Use of Hearing Aid Clinic Nurse Required: No Beliefs That Will Affect Care: None marital status: / Current Living Situation: Alone Current Living Situation Comment: Pt states she lives at home alone in a two story house current occupational status: retired 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 How many Children do You have: 1 Other Information That Helps Us Care for You: No Feels Safe at Home: Yes Safety Concerns: Feels Safe At This Time Childhood Exposure to Second-Hand Smoke: No Diet: regular caffeine: Yes during the past year weight has: remained stable Dental Care, Regularly: Yes Physical Activity Frequency: 1-2 Times per Week Seatbelt Use: always Sunscreen Use: Yes Assistive Devices: Denture - Upper, Glasses, Hearing Aid - Bilateral and Walker Allergies Allergies Allergy/AdvReac Type Severity Reaction Status Date / Time amoxicillin Allergy Intermediate RASH Verified 11/24/24 22:30 Penicillins Allergy Intermediate RASH Verified 03/18/25 22:30 pravastatin Allergy Intermediate MYALGIA Verified 11/24/24 22:30 simvastatin Allergy Intermediate MYALGIA Verified 11/24/24 22:30 dulaglutide [From [facility]] AdvReac Intermediate Vomiting Verified 11/24/24 22:30 Home Meds Home Medications Medication Instructions Recorded Confirmed cyanocobalamin (vitamin B-12) 1,000 mcg PO QAM 01/27/19 09/11/24 1,000 mcg tablet (Vitamin B-12) sennosides 8.6 mg-docusate sodium 1 tab PO BID 01/27/19 11/24/24 50 mg tablet (Senna-S) aspirin 81 mg tablet,delayed 81 mg PO QAM 10/28/22 11/24/24 release calcium 600 mg (as 1 tab PO HS 11/06/22 11/24/24 carbonate)-vitamin D3 10 mcg (400 unit) tablet (Calcium 600 + D(3)) acetaminophen 500 mg tablet 1,000 mg PO TID PRN Pain 08/28/23 11/24/24 (Tylenol Extra Strength) polyethylene glycol 3350 17 gram 17 g PO DAILY PRN Constipation 08/28/23 11/24/24 oral powder packet (Miralax) betamethasone dipropionate 0.05 % 1 applic topical UD PRN Other 11/25/23 11/24/24 topical cream cholecalciferol (vitamin D3) 25 1,000 unit PO DAILY 02/12/24 11/24/24 mcg (1,000 unit) capsule (Vitamin D3) furosemide 20 mg tablet 20 mg PO 4XWK 09/11/24 11/24/24 potassium chloride 10 mEq 10 meq PO 4XWK When taking 09/11/24 11/24/24 tablet,extended release(part/cryst) furosemide Previous Rx's Medication Instructions Recorded atorvastatin 20 mg tablet 20 mg PO HS #90 tabs 03/06/24 duloxetine 20 mg capsule,delayed 20 mg PO QAM #90 caps 03/06/24 release apixaban 2.5 mg tablet (Eliquis) 2.5 mg PO BID #180 tabs 04/06/24 pregabalin 75 mg capsule (Lyrica) 75 mg PO HS #90 caps 06/25/24 Myrbetriq 25 mg tablet,extended 25 mg PO QAM #90 tabs 07/14/24 release (mirabegron) metformin 500 mg tablet,extended 500 mg PO DAILY #90 tabs 07/16/24 release 24 hr digoxin 125 mcg (0.125 mg) tablet 125 mcg PO .COMPLEX #65 tabs 08/26/24 metoprolol succinate 50 mg 50 mg PO BID #180 tabs 09/21/24 tablet,extended release 24 hr amlodipine 5 mg tablet (Norvasc) 5 mg PO QAM #90 tabs 11/12/24 Results & Data (ED) Vital Signs Vital Signs - 24 hr 11/24/24 20:59 11/24/24 20:59 11/24/24 20:59 Pulse Rate 81 Pulse Rate from SpO2 Sensor Pulse Rhythm Regular Pulse Strength Normal Respiratory Rate 17 Respiratory Effort / Characteristics Non-Labored Spontaneous Non-Labored Spontaneous Respiratory Depth Normal Normal Respiratory Pattern Regular Regular Blood Pressure 118/89 Blood Pressure Mean 98 Blood Pressure Position Sitting Pulse Oximetry 78 L 78 L Oxygen Delivery Method Room Air Room Air Oxygen Flow Rate 0 Sepsis Recent Fever Within 48 Hours No Sepsis New/Unexplained Change in Mental Status N/A Sepsis Action Taken by Nursing No Action Required Oxygen Flow Rate - Titration 4 Pulse Oximetry Post Tiitration 96 11/24/24 21:22 11/24/24 21:27 11/24/24 21:30 Pulse Rate 77 90 103 H Pulse Rate from SpO2 Sensor 85 86 Pulse Rhythm Pulse Strength Respiratory Rate 14 18 Respiratory Effort / Characteristics Respiratory Depth Respiratory Pattern Blood Pressure 118/89 130/86 Blood Pressure Mean 98 100 Blood Pressure Position Pulse Oximetry 94 93 Oxygen Delivery Method Nasal Cannula Nasal Cannula Oxygen Flow Rate 4 4 Sepsis Recent Fever Within 48 Hours Sepsis New/Unexplained Change in Mental Status Sepsis Action Taken by Nursing Oxygen Flow Rate - Titration Pulse Oximetry Post Tiitration 11/24/24 22:03 Pulse Rate 82 Pulse Rate from SpO2 Sensor 86 Pulse Rhythm Pulse Strength Respiratory Rate 20 Respiratory Effort / Characteristics Respiratory Depth Respiratory Pattern Blood Pressure 149/89 H Blood Pressure Mean 109 Blood Pressure Position Pulse Oximetry 93 Oxygen Delivery Method Nasal Cannula Oxygen Flow Rate 4 Sepsis Recent Fever Within 48 Hours Sepsis New/Unexplained Change in Mental Status Sepsis Action Taken by Nursing Oxygen Flow Rate - Titration Pulse Oximetry Post Tiitration Laboratory Data 11/24/24 20:50 11/24/24 20:50 Lab Results 11/24/24 11/24/24 11/24/24 Range/Units 20:50 21:16 21:18 WBC 6.89 (4.8-10.8) K/ul RBC 3.82 L (4.20-5.40) M/uL Hgb 12.8 (12.0-16.0) g/dl Hct 39.7 (37.0-47.0) % MCV 103.9 H (80.0-100.0) fL MCH 33.5 (25.0-34.0) pg MCHC 32.2 (32.0-36.0) g/dL RDW Std Deviation 58.2 H (36.4-46.3) fL RDW Coeff of Diya 15.2 H (11.5-14.5) % Plt Count 174 (130-400) K/uL MPV 10.3 (9.4-12.4) fL Immature Gran % (Auto) 0.1 % Neut % (Auto) 63.7 % Lymph % (Auto) 21.5 % [place] % (Auto) 11.9 % Eos % (Auto) 2.2 % Baso % (Auto) 0.6 % Neut # (Auto) 4.39 (1.40-6.50) K/uL Lymph # (Auto) 1.48 (1.20-3.40) K/uL [place] # (Auto) 0.82 H (0.11-0.59) K/uL Eos # (Auto) 0.15 (0.00-0.50) K/uL Baso # (Auto) 0.04 (0.00-0.20) K/uL Immature Gran # (Auto) 0.01 (0.01-0.20) K/uL VBG pH 7.41 (7.36-7.41) VBG pCO2 45 (38-50) mmHg VBG pO2 21 mmHg VBG HCO3 29 mmol/L VBG O2 Saturation < 60.0 % VBG Base Excess 3.2 mEq/L Sodium 140 (136-145) mmol/L Potassium 4.1 (3.5-5.1) mmol/L Chloride 106 (98-107) mmol/L Carbon Dioxide 28 (21-32) mmol/L Anion Gap 6 (3-11) BUN 24 H (6-23) mg/dl Creatinine 0.79 (0.6-1.2) mg/dl Est Cr Clr Drug Dosing 47.0 ml/min eGFR 72.35 BUN/Creatinine Ratio 30.4 H (10-20) Glucose 134 H (70-99(Fasting)) mg/dl Calcium 9.4 (8.6-10.3) mg/dl Total Bilirubin 1.7 H (0.2-1.0) mg/dl AST 27 (13-39) U/L ALT 23 (7-52) U/L Alkaline Phosphatase 79 (34-104) U/L Troponin I High Sens 10.3 (0-14) pg/ml B-Natriuretic Peptide (0-100) pg/ml Total Protein 7.1 (6.0-8.3) gm/dl Albumin 4.3 (3.4-5.0) gm/dl Globulin 2.8 (2.5-4.0) gm/dl Albumin/Globulin Ratio 1.5 (0.9-2) Lipase 17 (11-82) U/L Adenovirus (PCR) Not Detected (NotDetected) B. pertussis DNA (PCR) Not Detected (NotDetected) B.parapertussis DNA PCR Not Detected (NotDetected) C. pneumoniae DNA (PCR) Not Detected (NotDetected) Coronavirus OC43 (PCR) Not Detected (NotDetected) Coronavirus HKU1 (PCR) Not Detected (NotDetected) Coronavirus 229E (PCR) Not Detected (NotDetected) SARS-CoV-2 (PCR) Not Detected (NotDetected) Coronavirus NL63 (PCR) Not Detected (NotDetected) Human Metapneumovir PCR Not Detected (NotDetected) Influenza Type A (PCR) Not Detected (NotDetected) Influenza Type B (PCR) Not Detected (NotDetected) M. pneumoniae (PCR) Not Detected (NotDetected) Parainfluenza 1 (PCR) Not Detected (NotDetected) Parainfluenza 2 (PCR) Not Detected (NotDetected) Parainfluenza 3 (PCR) Not Detected (NotDetected) Parainfluenza 4 (PCR) Not Detected (NotDetected) RSV (PCR) Not Detected (NotDetected) Entero/Rhino (PCR) Not Detected (NotDetected) 11/24/24 Range/Units 22:19 WBC (4.8-10.8) K/ul RBC (4.20-5.40) M/uL Hgb (12.0-16.0) g/dl Hct (37.0-47.0) % MCV (80.0-100.0) fL MCH (25.0-34.0) pg MCHC (32.0-36.0) g/dL RDW Std Deviation (36.4-46.3) fL RDW Coeff of Diya (11.5-14.5) % Plt Count (130-400) K/uL MPV (9.4-12.4) fL Immature Gran % (Auto) % Neut % (Auto) % Lymph % (Auto) % [place] % (Auto) % Eos % (Auto) % Baso % (Auto) % Neut # (Auto) (1.40-6.50) K/uL Lymph # (Auto) (1.20-3.40) K/uL [place] # (Auto) (0.11-0.59) K/uL Eos # (Auto) (0.00-0.50) K/uL Baso # (Auto) (0.00-0.20) K/uL Immature Gran # (Auto) (0.01-0.20) K/uL VBG pH (7.36-7.41) VBG pCO2 (38-50) mmHg VBG pO2 mmHg VBG HCO3 mmol/L VBG O2 Saturation % VBG Base Excess mEq/L Sodium (136-145) mmol/L Potassium (3.5-5.1) mmol/L Chloride (98-107) mmol/L Carbon Dioxide (21-32) mmol/L Anion Gap (3-11) BUN (6-23) mg/dl Creatinine (0.6-1.2) mg/dl Est Cr Clr Drug Dosing ml/min eGFR BUN/Creatinine Ratio (10-20) Glucose (70-99(Fasting)) mg/dl Calcium (8.6-10.3) mg/dl Total Bilirubin (0.2-1.0) mg/dl AST (13-39) U/L ALT (7-52) U/L Alkaline Phosphatase (34-104) U/L Troponin I High Sens (0-14) pg/ml B-Natriuretic Peptide 1036 H (0-100) pg/ml Total Protein (6.0-8.3) gm/dl Albumin (3.4-5.0) gm/dl Globulin (2.5-4.0) gm/dl Albumin/Globulin Ratio (0.9-2) Lipase (11-82) U/L Adenovirus (PCR) (NotDetected) B. pertussis DNA (PCR) (NotDetected) B.parapertussis DNA PCR (NotDetected) C. pneumoniae DNA (PCR) (NotDetected) Coronavirus OC43 (PCR) (NotDetected) Coronavirus HKU1 (PCR) (NotDetected) Coronavirus 229E (PCR) (NotDetected) SARS-CoV-2 (PCR) (NotDetected) Coronavirus NL63 (PCR) (NotDetected) Human Metapneumovir PCR (NotDetected) Influenza Type A (PCR) (NotDetected) Influenza Type B (PCR) (NotDetected) M. pneumoniae (PCR) (NotDetected) Parainfluenza 1 (PCR) (NotDetected) Parainfluenza 2 (PCR) (NotDetected) Parainfluenza 3 (PCR) (NotDetected) Parainfluenza 4 (PCR) (NotDetected) RSV (PCR) (NotDetected) Entero/Rhino (PCR) (NotDetected) Administered Medications Discontinued Medications Ceftriaxone Sodium (Rocephin) 2,000 mg in 50 mls @ 100 mls/hr IV NOW STA Stop: 11/24/24 22:32 Last Infusion: 11/25/24 00:09 Dose: Infused Documented By: Admin: 11/24/24 23:24 Dose: 100 mls/hr Documented By: JANENE Discharge Plan Visit Data Chief Complaint: Shortness of Breath/Dyspnea Stated Complaint: SOB EARLIER, NO COMPLAINTS NOW ED Provider: Sacha Cadena Discharge Problem: Acute hypoxemic respiratory failure, Breath shortness Patient Disposition: Admitted As Inpatient Discharge Instructions Interventions: ED Discharge Assessment Last Done: 11/25/24 00:18
[2024-11-24 21:43] LABS: Basophils # (auto) 0.04 K/uL (0.00-0.20); Basophils % (auto) 0.6 %; Eosinophils # (auto) 0.15 K/uL (0.00-0.50); Eosinophils % (auto) 2.2 %; Hematocrit (blood only) 39.7 % (37.0-47.0); Hemoglobin 12.8 g/dl (12.0-16.0); Immature Granulocytes # (auto) 0.01 K/uL (0.01-0.20); Immature Granulocytes % (auto) 0.1 %; Lymphocytes # (auto) 1.48 K/uL (1.20-3.40); Lymphocytes % (auto) 21.5 %; Mean Corpuscular Hemoglobin 33.5 pg (25.0-34.0); Mean Corpuscular Hgb Conc 32.2 g/dL (32.0-36.0); Mean Corpuscular Volume 103.9 fL (80.0-100.0); Mean Platelet Volume 10.3 fL (9.4-12.4); Monocytes # (auto) 0.82 K/uL (0.11-0.59); Monocytes % (auto) 11.9 %; Neutrophils # (auto) 4.39 K/uL (1.40-6.50); Neutrophils % (auto) 63.7 %; Platelet Count 174 K/uL (130-400); RDW Coefficient of Variation 15.2 % (11.5-14.5); RDW Standard Deviation 58.2 fL (36.4-46.3); Red Blood Count 3.82 M/uL (4.20-5.40); White Blood Count 6.89 K/ul (4.8-10.8)
[2024-11-24 21:51] LABS: Albumin Globulin Ratio 1.5 (0.9-2); Albumin Level 4.3 gm/dl (3.4-5.0); BUN Creatinine Ratio 30.4 (10-20); Bilirubin,Total 1.7 mg/dl (0.2-1.0); Calcium 9.4 mg/dl (8.6-10.3); Globulin 2.8 gm/dl (2.5-4.0); Potassium 4.1 mmol/L (3.5-5.1); Total Protein 7.1 gm/dl (6.0-8.3)
[2024-11-24 21:58] LABS: Troponin I High Sensitivity 10.3 pg/ml (0-14)
--- NOTE | 2024-11-24 22:27 | History & Physical Report ---
Date of Service November 24, 2024 Assessment & Plan (1) Acute respiratory failure with hypoxia: (2) Diabetes mellitus type II, controlled: Plan 89-year-old female PMHx CHF, A-fib on Eliquis, HTN, prior CVA, T2DM, and depression presenting via EMS for SOB starting the day of arrival. ED evaluation reveals no leukocytosis, H&H stable, VBG's WNL, CMP BUN 24, ratio 30.4, bilirubin 1.7; troponin 10.3; BNP 1036; BioFire negative; CXR appears to have infiltrates, pending official read; EKG A-fib at 85 bpm. Provided with Rocephin in ED. #Acute hypoxic respiratory failure/Acute on chronic diastolic heart failure Presenting w/ SOB + cough x 1.5 weeks, hypoxic on day of arrival per home readings at 88%; Hypoxic on admission, currently 93% on 4L NC, no O2 at baseline. Likely 2/2 acute on chronic diastolic HF supported by BNP > 1k, BLE edema, elevated weights, and CXR findings. Dry weight 120lbs. - CBC without lekucytosis, H/H stable; VBGs WNL, CMP with BUN 24, ratio 30.4, total bili 1.7- BMP BID with diuresis - No O2 at baseline; O2 prn; Wean as patient tolerates - Daily weights standing, I+Os - Echo 11/2023 RV mildly dilated, RVS function mildly to moderately reduced, LA mildly dilated, RA mildly dilated, AVS mild, severe mitral annular calcifica tion, RVSP greater than 60 mmHg, inferior vena cava mildly dilated; pending repeat echo - BNP 1036; CXR appears to have infiltrates worsen from prior, pending official read. - On Lasix 20mg 4x/week outpatient- Lasix 20mg BID17 IV inpatient; Net output of - 1 to 1.5 L per day; will adjust dose as appropriate - Rocephin in ED- no leukocytosis, no infectious symptoms- deferred further abx therapy at time of admission - SCDs + promote leg elevation and frequent movement #T2DM H/o DMT2; home regimen includes metformin. - Most recent A1C 08/2024 @ 6.2% - SSI deferred at time of admission- continue home regimen - BSG ACHS - Adjust regimen as needed #HTN- Amlodipine, furosemide (hold po furosemide while on IV) #A-fib-EKG A-fib rate 85; Eliquis, digoxin, metoprolol #HLD- Atorvastatin, Zetia #OAB- Myrbetriq #Depression- Cymbalta #Peripheral neuropathy- Pregablin Dispo: Admit, PCU VTE prophylaxis: Eliquis + SCDs This document was dictated utilizing [employer]. Please excuse any grammatical errors that may be secondary to use of this software. Admission and Anticipated Discharge Date Admission Date: 11/24/2024 History of Present Illness Chief Complaint: SOB Primary Care Provider: Preston Moreno MD 89-year-old female PMHx CHF, A-fib on Eliquis, HTN, prior CVA, T2DM, and depression presenting via EMS for SOB starting the day of arrival. Patient has had approximately 2 weeks of cough and congestion. Patient does periodically check her O2 saturation and when she checked it on the day of arrival it was at 88%. States that approximately 1.5 weeks ago she noticed that she began to have a cough that was overall nonproductive, with 1 occurrence where she had some sputum production. States that since that time, she has been having worsening SOB but on the day of arrival with SOB was most severe. She is also been having some rhinorrhea and sinus congestion. Reports no sore throat or fever/chills. No known sick contacts. Has had some abdominal pain that comes and goes, but overall denying additional GI symptoms to include N/V/D/C. States that she has noticed her weight has gone up slightly, with her dry weight being 120lbs and her weight the day prior to arrival was 123lbs; weight at admission 60.1kg (132lb). Feels as though her feet have been swelling more than usual also. Overall denying chest pain, palpitations, LUTS, numbness/tingling outside of usual, weakness, syncope, or headache. ED evaluation reveals no leukocytosis, H&H stable, VBG's WNL, CMP BUN 24, ratio 30.4, bilirubin 1.7; troponin 10.3; BNP 1036; BioFire negative; CXR appears to have infiltrates, pending official read; EKG A-fib at 85 bpm. Provided with Rocephin in ED. Please see Dr. Emanuel's attestation for adjustments/additions to treatment plan. Allergies Allergy/AdvReac Type Severity Reaction Status Date / Time amoxicillin Allergy Intermediate RASH Verified 11/24/24 22:30 Penicillins Allergy Intermediate RASH Verified 11/24/24 22:30 pravastatin Allergy Intermediate MYALGIA Verified 11/24/24 22:30 simvastatin Allergy Intermediate MYALGIA Verified 11/24/24 22:30 dulaglutide [From [facility]] AdvReac Intermediate Vomiting Verified 11/24/24 22:30 Home Medications Medication Instructions Recorded Confirmed Type cyanocobalamin (vitamin B-12) 1,000 mcg PO QAM 01/27/19 09/11/24 History 1,000 mcg tablet (Vitamin B-12) sennosides 8.6 mg-docusate sodium 1 tab PO BID 01/27/19 11/24/24 History 50 mg tablet (Senna-S) aspirin 81 mg tablet,delayed 81 mg PO QAM 10/28/22 11/24/24 History release calcium 600 mg (as 1 tab PO HS 11/06/22 11/24/24 History carbonate)-vitamin D3 10 mcg (400 unit) tablet (Calcium 600 + D(3)) acetaminophen 500 mg tablet 1,000 mg PO TID PRN Pain 08/28/23 11/24/24 History (Tylenol Extra Strength) polyethylene glycol 3350 17 gram 17 g PO DAILY PRN Constipation 08/28/23 11/24/24 History oral powder packet (Miralax) betamethasone dipropionate 0.05 % 1 applic topical UD PRN Other 11/25/23 11/24/24 History topical cream cholecalciferol (vitamin D3) 25 1,000 unit PO DAILY 02/12/24 11/24/24 History mcg (1,000 unit) capsule (Vitamin D3) atorvastatin 20 mg tablet 20 mg PO HS #90 tabs 03/06/24 11/24/24 Rx duloxetine 20 mg capsule,delayed 20 mg PO QAM #90 caps 03/06/24 11/24/24 Rx release apixaban 2.5 mg tablet (Eliquis) 2.5 mg PO BID #180 tabs 04/06/24 11/24/24 Rx pregabalin 75 mg capsule (Lyrica) 75 mg PO HS #90 caps 06/25/24 11/24/24 Rx Myrbetriq 25 mg tablet,extended 25 mg PO QAM #90 tabs 07/14/24 11/24/24 Rx release (mirabegron) metformin 500 mg tablet,extended 500 mg PO DAILY #90 tabs 07/16/24 11/24/24 Rx release 24 hr digoxin 125 mcg (0.125 mg) tablet 125 mcg PO .COMPLEX #65 tabs 08/26/24 11/24/24 Rx furosemide 20 mg tablet 20 mg PO 4XWK 09/11/24 11/24/24 History potassium chloride 10 mEq 10 meq PO 4XWK When taking 09/11/24 11/24/24 History tablet,extended release(part/cryst) furosemide metoprolol succinate 50 mg 50 mg PO BID #180 tabs 09/21/24 11/24/24 Rx tablet,extended release 24 hr amlodipine 5 mg tablet (Norvasc) 5 mg PO QAM #90 tabs 11/12/24 11/24/24 Rx Past Med/Surg History Problem List (Updated 11/25/24 @ 17:10 by Lucrecia Reyes PA-C) Cardiomegaly Breath shortness (Acute) Acute hypoxemic respiratory failure (Acute) Hyperbilirubinemia Atrial fibrillation (Acute) CHF (congestive heart failure) (Acute) Hypoxia (Acute) Acute respiratory failure with hypoxia Syncope Periprosthetic fracture around internal prosthetic right hip joint, initial encounter (10/28/22) Periprosthetic fracture around internal prosthetic right hip joint from a fall Osteoporosis (Chronic) Altered mental status Hemarthrosis involving knee joint Hypertension (Acute) Acute blood loss anemia Right leg swelling Vitamin D deficiency (Acute) Stress incontinence in female (Acute) Primary localized osteoarthrosis of the hip (Acute) Polycythemia (Acute) Peripheral neuropathy (Acute) Overactive bladder (Acute) Neurologic gait dysfunction (Acute) Microscopic hematuria (Acute) Lumbar radiculopathy (Acute) Expressive aphasia (Acute) Dysphasia following cerebrovascular accident (CVA) (Acute) Disc degeneration, lumbar (Acute) Depression (Acute) Cystocele, midline (Acute) Bilateral carotid artery stenosis (Acute) Allergic rhinitis due to pollen (Acute) Gait abnormality Dizziness (Acute) Psoriasis Candidiasis of breast Anticoagulant long-term use First degree atrioventricular block by electrocardiogram Postmenopausal bleeding Sensorineural hearing loss (SNHL) of both ears Impacted cerumen of both ears B12 deficiency Medical History Acute ischemic stroke Diabetes mellitus type II, controlled Hemorrhoids Fall Hip fracture V tach Atrial fibrillation Surgical History S/P appendectomy S/P lumbar laminectomy S/P cataract surgery S/P total hip arthroplasty Family History Grandfather Coronary heart disease Mother Coronary heart disease Sister Diabetes Father Coronary heart disease Other Family history non-contributory Denies family history of Ovarian cancer Prostate cancer Myocardial infarction Breast cancer Colorectal cancer Social History Smoking Status: Never smoker Second Hand Exposure: No; Do You Dip or Chew Tobacco: No; Hx Alcohol Use: No Hx Substance Use: No Preferred Language: Vietnamese Communication Ability: Effective Visual Impairment: No Limitations Hearing Ability: Use of Hearing Aid Multimedia Services Coordinator Required: No Beliefs That Will Affect Care: None marital status: / Current Living Situation: Alone Current Living Situation Comment: Pt states she lives at home alone in a two story house current occupational status: retired 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 How many Children do You have: 1 Other Information That Helps Us Care for You: No Feels Safe at Home: Yes Safety Concerns: Feels Safe At This Time Childhood Exposure to Second-Hand Smoke: No Diet: regular caffeine: Yes during the past year weight has: remained stable Dental Care, Regularly: Yes Physical Activity Frequency: 1-2 Times per Week Seatbelt Use: always Sunscreen Use: Yes Assistive Devices: Walker Review of Systems Review of Systems: All systems reviewed & are unremarkable except as noted in Subjective Physical Exam Physical Exam: General: No acute distress Skin: Warm and dry Head: Normocephalic, atraumatic Eyes: PERRL, conjunctivae clear, sclera non-icteric; wearing glasses ENT: External ear and ear canal without swelling; nose atraumatic; good dentition, tongue normal appearance, pharynx normal Neck: Supple, no LAD Cardio: RRR, no M/G/R, S1 and S2 normal Resp: No respiratory distress, Lungs CTA in all lobes bilaterally, no wheezes, rales, or rhonchi Abdomen: Soft, symmetric, nontender; No masses or hepatosplenomegaly; Bowel sounds normoactive MSK: No deformities; pulses palpable and equal; 1+ pitting edema BLE to mid- mcneil. Neuro: Awake, alert; Sensation intact bilaterally; CN grossly intact; dysphagia per baseline from prior CVA Psych: Appropriate mood and affect; good judgement and insight. Results & Data Results & Data Vital Signs (Past 12 Hours) Vital Signs Pulse Resp BP Pulse Ox O2 Del Method O2 Flow Rate 11/24/24 21:22 77 11/24/24 20:59 78 L Room Air 0 11/24/24 20:59 81 17 118/89 78 L Room Air Laboratory Results 11/24/24 11/24/24 11/24/24 22:19 21:18 21:16 WBC RBC Hgb Hct MCV MCH MCHC RDW Std Deviation RDW Coeff of Diya Plt Count MPV Immature Gran % (Auto) Neut % (Auto) Lymph % (Auto) Cochran % (Auto) Eos % (Auto) Baso % (Auto) Neut # (Auto) Lymph # (Auto) Cochran # (Auto) Eos # (Auto) Baso # (Auto) Immature Gran # (Auto) VBG pH 7.41 VBG pCO2 45 VBG pO2 21 VBG HCO3 29 VBG O2 Saturation < 60.0 VBG Base Excess 3.2 Sodium Potassium Chloride Carbon Dioxide Anion Gap BUN Creatinine Est Cr Clr Drug Dosing eGFR BUN/Creatinine Ratio Glucose Calcium Total Bilirubin AST ALT Alkaline Phosphatase Troponin I High Sens B-Natriuretic Peptide 1036 H Total Protein Albumin Globulin Albumin/Globulin Ratio Lipase Adenovirus (PCR) Not Detected B. pertussis DNA (PCR) Not Detected B.parapertussis DNA PCR Not Detected C. pneumoniae DNA (PCR) Not Detected Coronavirus OC43 (PCR) Not Detected Coronavirus HKU1 (PCR) Not Detected Coronavirus 229E (PCR) Not Detected SARS-CoV-2 (PCR) Not Detected Coronavirus NL63 (PCR) Not Detected Human Metapneumovir PCR Not Detected Influenza Type A (PCR) Not Detected Influenza Type B (PCR) Not Detected M. pneumoniae (PCR) Not Detected Parainfluenza 1 (PCR) Not Detected Parainfluenza 2 (PCR) Not Detected Parainfluenza 3 (PCR) Not Detected Parainfluenza 4 (PCR) Not Detected RSV (PCR) Not Detected Entero/Rhino (PCR) Not Detected 11/24/24 20:50 WBC 6.89 RBC 3.82 L Hgb 12.8 Hct 39.7 MCV 103.9 H MCH 33.5 MCHC 32.2 RDW Std Deviation 58.2 H RDW Coeff of Diya 15.2 H Plt Count 174 MPV 10.3 Immature Gran % (Auto) 0.1 Neut % (Auto) 63.7 Lymph % (Auto) 21.5 Cochran % (Auto) 11.9 Eos % (Auto) 2.2 Baso % (Auto) 0.6 Neut # (Auto) 4.39 Lymph # (Auto) 1.48 Cochran # (Auto) 0.82 H Eos # (Auto) 0.15 Baso # (Auto) 0.04 Immature Gran # (Auto) 0.01 VBG pH VBG pCO2 VBG pO2 VBG HCO3 VBG O2 Saturation VBG Base Excess Sodium 140 Potassium 4.1 Chloride 106 Carbon Dioxide 28 Anion Gap 6 BUN 24 H Creatinine 0.79 Est Cr Clr Drug Dosing 47.0 eGFR 72.35 BUN/Creatinine Ratio 30.4 H Glucose 134 H Calcium 9.4 Total Bilirubin 1.7 H AST 27 ALT 23 Alkaline Phosphatase 79 Troponin I High Sens 10.3 B-Natriuretic Peptide Total Protein 7.1 Albumin 4.3 Globulin 2.8 Albumin/Globulin Ratio 1.5 Lipase 17 Adenovirus (PCR) B. pertussis DNA (PCR) B.parapertussis DNA PCR C. pneumoniae DNA (PCR) Coronavirus OC43 (PCR) Coronavirus HKU1 (PCR) Coronavirus 229E (PCR) SARS-CoV-2 (PCR) Coronavirus NL63 (PCR) Human Metapneumovir PCR Influenza Type A (PCR) Influenza Type B (PCR) M. pneumoniae (PCR) Parainfluenza 1 (PCR) Parainfluenza 2 (PCR) Parainfluenza 3 (PCR) Parainfluenza 4 (PCR) RSV (PCR) Entero/Rhino (PCR) Medications Administered Ceftriaxone 2G IV ECG Additional Comments: A-fib, LAD 85 bpm, QRS 74, QT/QTc 384/456, PRT */-48/36 Code Status & VTE Plan Code Status Full Supervising Physician Co-Signing Physician Notes Patient seen and examined, chart reviewed, case discussed with ROC Rodriguez and I agree with the assessment and plan as above. Patient with ongoing cough, congestion and SOB. Hypoxic on arrival Thought to be secondary to CHF - [id number] Assessment/Plan Will diurese with IV Lasix Monitor response Remainder of plan as above PG Care Time/CCT Total # of Minutes Spent Total Time Spent with Patient: Total time spent is greater than 50% in coordination of care (as documented) at patient's floor/unit and/or counseling patient: Coding Level of Care Code 79591 INT INP/OBS CARE 3/75MIN Diagnoses Acute respiratory failure with hypoxia J96.01 Diabetes mellitus type II, controlled E11.9
[2024-11-24 22:54] LABS: Adenovirus PCR Not Detected (NotDetected); Bordetella parapertussis PCR Not Detected (NotDetected); Bordetella pertussis PCR Not Detected (NotDetected); Chlamydia pneumoniae PCR Not Detected (NotDetected); Coronavirus 229E PCR Not Detected (NotDetected); Coronavirus CoV-2 (COVID19)PCR Not Detected (NotDetected); Coronavirus HKU1 PCR Not Detected (NotDetected); Coronavirus NL63 PCR Not Detected (NotDetected); Coronavirus OC43PCR Not Detected (NotDetected); Human Metapneumovirus PCR Not Detected (NotDetected); Influenza A PCR Not Detected (NotDetected); Influenza B PCR Not Detected (NotDetected); Mycoplasma pneumoniae PCR Not Detected (NotDetected); Parainfluenza Virus 1 PCR Not Detected (NotDetected); Parainfluenza Virus 2 PCR Not Detected (NotDetected); Parainfluenza Virus 3 PCR Not Detected (NotDetected); Parainfluenza Virus 4 PCR Not Detected (NotDetected); Respiratory Syncytial VirusPCR Not Detected (NotDetected); Rhinovirus/Enterovirus PCR Not Detected (NotDetected)
[2024-11-24] MEDS: cefTRIAXone SODIUM 2,000 MG/50 ML BAG IV STA (23:24)
[2024-11-25] MEDS ORDERED: ONDANSETRON INJ 2 MG/ML 2 ML VIAL IV PRN (00:52)
--- NOTE | 2024-11-25 01:16 | XRay Report ---
Exam(s): XR CXR 1 VIEW EXAM: XR Chest, 1 View CLINICAL HISTORY: Reason for exam: Chest pain, nonspecific. TECHNIQUE: Frontal view of the chest. COMPARISON: Prior chest x-ray from February 18, 2024. FINDINGS: Lungs: Moderate peribronchial thickening of the central and lower lobe bronchi with patchy opacity at the left lung base and increased interstitial opacities in the right lower lobe. No consolidation. Pleural space: There is blunting of left costophrenic angle. No pneumothorax. Heart: Mild cardiomegaly. Mediastinum: Unremarkable. Normal mediastinal contour. Bones/joints: Diffuse osteopenia throughout the visualized bones. No acute fracture. IMPRESSION: Bronchitis with left lower lobe infiltrate. Cardiomegaly without evidence of CHF. Communications: Verify Receipt Electronically signed by: Priscilla Hernandez MD 11/25/24 01:14 AM
[2024-11-25 06:47] LABS: BUN Creatinine Ratio 28.6 (10-20); Calcium 8.7 mg/dl (8.6-10.3); Creatinine Clr Calc Pharmacy 56.7 ml/min; Potassium 3.9 mmol/L (3.5-5.1)
[2024-11-25] MEDS: VIBEGRON 75 MG TAB PO SCH (08:24)
[2024-11-25] MEDS: DOCUSATE SODIUM/SENNA 50/8.6MG TAB PO SCH (08:24)
[2024-11-25] MEDS: POTASSIUM CHLORIDE 10 MEQ TABCR PO SCH (08:24)
[2024-11-25] MEDS: APIXABAN 2.5 MG TAB PO SCH (08:25)
[2024-11-25] MEDS: DULoxetine HCL 20 MG CAP PO SCH (08:25)
[2024-11-25] MEDS: FUROSEMIDE 20 MG TAB PO SCH (08:25)
[2024-11-25] MEDS: metFORMIN HCL ER 500 MG TABCR PO SCH (08:25)
[2024-11-25] MEDS: ASPIRIN 81 MG ECTAB PO SCH (08:25)
[2024-11-25] MEDS: amLODIPine BESYLATE 5 MG TAB PO SCH (08:25)
[2024-11-25] MEDS: METOPROLOL SUCC 50MG EXT REL TAB PO SCH (08:25)
--- NOTE | 2024-11-25 11:34 | Electrocardiogram Report ---
Test Reason : Blood Pressure : */* mmHG Vent. Rate : 85 BPM Atrial Rate : * BPM P-R Int : * ms QRS Dur : 74 ms QT Int : 384 ms P-R-T Axes : * -48 36 degrees QTcB Int : 456 ms Atrial fibrillation Left axis deviation Abnormal ECG When compared with ECG of 11-Sep-2024 11:09, Nonspecific T wave abnormality, worse in Inferior leads QT has lengthened Confirmed by Preston Baker ([id number]) on 11/25/2024 11:33:56 AM Referred By: REFERRED SELF Confirmed By: Preston Baker
--- NOTE | 2024-11-25 13:19 | Hospitalist Progress Note ---
Date of Service November 25, 2024 Assessment & Plan (1) Acute respiratory failure with hypoxia: (2) CHF (congestive heart failure): (3) Atrial fibrillation: (4) Diabetes mellitus type II, controlled: Plan 89-year-old female PMHx CHF, A-fib on Eliquis, HTN, prior CVA, T2DM, and depress ion presenting via EMS for SOB starting the day of arrival. ED evaluation reveals no leukocytosis, H&H stable, VBG's WNL, CMP BUN 24, ratio 30.4, bilirubin 1.7; troponin 10.3; BNP 1036; BioFire negative; CXR appears to have infiltrates, pending official read; EKG A-fib at 85 bpm. Provided with Rocephin in ED. #Acute hypoxic respiratory failure/Acute on chronic diastolic heart failure - No O2 at baseline; O2 via nasal cannula; Wean as patient tolerates - Daily weights standing (Dry weight 120lbs) - I & Os (Net output of - 1 to 1.5 L per day; adjust dose as appropriate) - Echo 11/2023 with RV mildly dilated, RVS function mildly to moderately reduced, LA mildly dilated, RA mildly dilated, AVS mild, severe mitral annular calcification, RVSP greater than 60 mmHg, inferior vena cava mildly dilated; - Chest x-ray [official read] noting bronchitis with left lower lobe infiltrate, cardiomegaly without evidence of CHF - Repeat echo ordered; -Continue IV lasix 20mg BID -AM labs and reassess #HTN/Atrial Fibrillation/History of CVA - Amlodipine for HTN -EKG is nonspecific - Outpatient cardiology visit on 09/11/2024 noted that digoxin was to be discontinued for bradycardia. - Rate control with metoprolol - Anticoagulation with Eliquis #T2DM H/o DMT2; home regimen includes metformin. - Most recent A1C 08/2024 @ 6.2% - SSI deferred at time of admission- continue home regimen - BSG ACHS - Adjust regimen as needed #HLD- Atorvastatin, Zetia #OAB- Myrbetriq #Depression- Cymbalta #Peripheral neuropathy- Pregablin Dispo: Admit, PCU VTE prophylaxis: Eliquis + SCDs Admission and Anticipated Discharge Date Admission Date: November 24, 2024 Supervising Physician Co-Signing Physician Notes Patient was seen and examined independently I discussed the case with Lucrecia GLOVER I reviewed pertinent past medical social family history and also the plan of care and agree with the plan of care. Patient feels her shortness of breath is somewhat improved. We talked about dietary indiscretion as patient like to go out to eat. This looks to be more of a exacerbation of heart failure preserved ejection fraction then a bronchitis or pneumonia. Continue diuresis to ensure negative fluid balance Examination shows some rales at the bases bilaterally Atrial fibrillation shows controlled ventricular rate Diabetes is in good control as an outpatient with an A1c of 6.2 Any exceptions will be noted below Subjective Patient is an 89-year-old female who has been admitted for acute respiratory failure with hypoxia requiring o2 nasal cannula to maintain saturations, not on home oxygen. She currently reports that she is feeling "okay." She is currently resting in chair and eating, appears comfortable. She reports nonproductive cough for at least one week and shortness of breath. She denies shortness of breath at rest and experiences symptoms with exertion, does not experience shortness of breath while lying down. She denies fever/chills, headache, ear pain, sore throat, dysphagia, chest pain/pressure/squeezing, chest pain with exertion, palpitations, nausea, vomiting, diarrhea, constipation, blood in stool or urine, polyuria, rash. She reports swelling of lower legs/feet. She reports intermittent dizziness and feeling like she is going to pass out for a while now. She denies any aggravating or alleviating factors. She denies any recent sick contacts. She has otherwise been eating and drinking well, no elimination concerns. Review of Systems Review of Systems: see subjective Physical Exam Physical Exam: General: no acute distress; non-toxic appearing; well-nourished; cooperative; resting comfortably in chair eating lunch at time of visit HEENT: normocephalic, atraumatic; no scleral icterus; PERRLA w/ EOMs intact; vision and hearing grossly intact Neck: supple; no lymphadenopathy; trachea midline Skin: warm, dry without signs of tenting; no cyanosis; no rashes, bruising, lesions, or erythema noted CV: chest wall NTP; regular rate with irregular rhythm S1/S2 normal; no murmurs/rubs/gallops; pulses intact and symmetric at radial, DP, and PT Lungs: (+) O2 nasal cannula; no acute respiratory distress; symmetrical chest wall expansion; (+) coarse breath sounds/diminshed ABD: Soft, NTP; BS present; no rebound/guarding; no distention MSK: no tics or fasciculations; (+) trace edema noted in the LEs b/l, nonerythematous Neuro: A&Ox3; normal mood and affect; fluent speech; no focal deficits; sensation grossly intact in the LEs b/l Results & Data Results & Data Vital Signs (Past 12 Hours) Vital Signs Temperature, heart rate, respiratory rate, blood pressure, oxygen saturation reviewed. Temp Pulse Pulse Resp BP Pulse Ox O2 Del Method 11/25/24 12:14 97.9 F 96 H 17 132/79 90 Nasal Cannula 11/25/24 08:00 Nasal Cannula 11/25/24 07:28 97.9 F 86 18 134/75 93 Nasal Cannula 11/25/24 03:07 98.2 F 103 H 19 121/78 93 Nasal Cannula 11/25/24 01:24 88 O2 Flow Rate 11/25/24 12:14 2 11/25/24 08:00 2 11/25/24 07:28 2 11/25/24 03:07 11/25/24 01:24 Laboratory Results CBC, coagulation studies, venous blood gas, chemistries, BMP, BNP, Troponin, Respiratory Biofire reviewed Diagnostic Findings Chest x-ray reviewed. ECG Additional Comments: ECG reviewed PG Care Time/CCT Total # of Minutes Spent Total Time Spent with Patient: Total time spent is greater than 50% in coordination of care (as documented) at patient's floor/unit and/or counseling patient: Coding Level of Care Code None Diagnoses Acute respiratory failure with hypoxia J96.01 Acute on chronic diastolic congestive heart failure I50.33 Heart failure chronicity: acute on chronic Heart failure type: diastolic Atrial fibrillation I48.91 Atrial fibrillation type: unspecified Diabetes mellitus type II, controlled E11.9 Diabetes mellitus shelter insulin use: without terminal operations manager use (2) CHF (congestive heart failure) Heart failure chronicity: acute on chronic Heart failure type: diastolic Qualified Code(s): I50.33 - Acute on chronic diastolic (congestive) heart fa ilure (3) Atrial fibrillation Atrial fibrillation type: unspecified Qualified Code(s): I48.91 - Unspecified atrial fibrillation (4) Diabetes mellitus type II, controlled Diabetes mellitus terminal operations manager insulin use: without terminal operations manager use
[2024-11-25] MEDS: DIGOXIN 0.125 MG TAB PO SCH (16:54)
[2024-11-25 16:55] LABS: BUN Creatinine Ratio 24.1 (10-20); Calcium 8.7 mg/dl (8.6-10.3); Potassium 4.1 mmol/L (3.5-5.1)
[2024-11-25] MEDS: POLYETHYLENE (MIRALAX) 17 GM PACK PO PRN (16:56)
--- NOTE | 2024-11-25 18:53 | Billing Data ---
Date of Service November 25, 2024 Coding Level of Care Code 08219 SUB INP/OBS CARE
[2024-11-25] MEDS: ATORVASTATIN 20 MG TAB PO SCH (20:32)
[2024-11-25] MEDS: PREGABALIN 75 MG CAP PO SCH (20:33)
[2024-11-26 06:38] LABS: Hematocrit (blood only) 37.1 % (37.0-47.0); Mean Corpuscular Hemoglobin 33.1 pg (25.0-34.0); Mean Corpuscular Hgb Conc 32.3 g/dL (32.0-36.0); Mean Corpuscular Volume 102.2 fL (80.0-100.0); Mean Platelet Volume 10.4 fL (9.4-12.4); Platelet Count 158 K/uL (130-400); RDW Coefficient of Variation 14.8 % (11.5-14.5); RDW Standard Deviation 55.6 fL (36.4-46.3); Red Blood Count 3.63 M/uL (4.20-5.40); White Blood Count 6.53 K/ul (4.8-10.8)
[2024-11-26 07:38] LABS: BUN Creatinine Ratio 25.7 (10-20); Calcium 8.8 mg/dl (8.6-10.3); Creatinine Clr Calc Pharmacy 51.1 ml/min; Potassium 3.9 mmol/L (3.5-5.1)
[2024-11-26 10:21] LABS: Appearance Urine Clear (Clear); Bilirubin Urine Negative (Negative); Blood Urine Negative (Negative); Color Urine Yellow; Glucose Urine UA Negative (Negative); Ketones Urine Negative (Negative); Leukocyte Esterase Urine Negative (Negative); Nitrite Urine Negative (Negative); Protein Urine Negative (Negative); Specific Gravity Urine 1.013 (1.000-1.030); Urobilinogen Urine Negative (Negative); pH Urine 5.5 (4.5-7.5)
--- NOTE | 2024-11-26 13:42 | XCELERA ---
[id number] \\[email or web address]\[id number]
--- NOTE | 2024-11-26 17:02 | Hospitalist Progress Note ---
Date of Service November 26, 2024 Assessment & Plan (1) Acute respiratory failure with hypoxia: Present on Admission?: Yes (2) Acute on chronic heart failure: (3) Mitral valve stenosis, severe: (4) Atrial fibrillation: (5) Controlled type 2 diabetes mellitus, without long-term current use of insulin: Plan 89-year-old female PMHx CHF, A-fib on Eliquis, HTN, prior CVA, T2DM, and depression presenting via EMS for SOB starting the day of arrival. ED evaluation reveals no leukocytosis, H&H stable, CMP BUN 24, ratio 30.4, bilirubin 1.7; troponin 10.3; BNP 1036; BioFire negative; CXR appears to have infiltrates,EKG A-fib at 85 bpm. Provided with Rocephin x 1 dose in ED. #Acute hypoxic respiratory failure -Likely secondary to acute on chronic heart failure -Patient presented to ED with oxygen saturation of 78% on RA, improved to 93% on 4L O2 Nasal Cannula. -Initial VBG with pCO2 at 55mmHg, repeat VBG WNL -No O2 therapy at baseline -Transitioned from 4L to 2L O2 nasal cannula yesterday morning (11/25) and has maintained O2 saturations above 90% -Oxygen saturations today have been in the mid-upper 90s on 2L. -Continue to monitor and titrate as able #Acute on chronic diastolic heart failure/Reduced RV systolic function/Mitral Valve disease - BNP improved to 713 from >1000 - Echocardiogram with severe dilation of both atria and right ventricle, reduced RV systolic function, severe mitral valve stenosis and annular calcification, small pericardial effusion - ECG ordered to monitor for progression of effusion/tamponade - Continue Lasix 20mg BID - Cardiology Consulted #HTN/Atrial Fibrillation/Hyperlipidemia/History of CVA - Outpatient cardiology visit on 09/11/2024 noted that digoxin was to be discontinued for bradycardia. - She has been receiving Digoxin since admission. Heart rate has been controlled. Digoxin level WNL. - Will continue for now, appreciate cardiology input regarding further management - Continue metoprolol succinate 50mg daily and amlodipine 5mg daily - Anticoagulation with Eliquis 2.5mg BID - Continue atorvastatin 20mg daily #Type 2 Diabetes Mellitus, controlled, without care home use of insulin - Most recent A1C 08/2024 @ 6.2% - Metformin ER 500mg PO daily - SSI deferred at this time - Glucose has remained WNL - Continue to monitor BSG ACHS and adjust regimen as needed #OAB- Myrbetriq #Depression- Cymbalta #Peripheral neuropathy- Pregablin Dispo: Admit, PCU VTE prophylaxis: Eliquis + SCDs Admission and Anticipated Discharge Date Admission Date: November 24, 2024 Subjective Patient is an 89-year-old female who has been admitted for acute respiratory failure with hypoxia requiring o2 nasal cannula to maintain saturations, not on home oxygen. Today, she states she is feeling pretty good. She reports ongoing shortness of breath with exertion. She is currently on 2 L oxygen nasal cannula. She reports cough has improved since admission. She states cough and shortness of breath is worse at night while trying to lay down (+ orthopnea) she is eating and drinking well, urinating without difficulty. She has requested MiraLAX for today, last BM yesterday. She had PT evaluation today, states that it went we ll. She is ambulating with rolling walker. She specifically denies headache, dizziness, lightheadedness, blurry/double vision, chest pain/pressure, pain in jaw/neck/left arm, productive cough, palpitations, syncope, presyncope, abdominal pain, nausea/vomiting, blood in stool or urine, weakness. Review of Systems Review of Systems: See HPI Physical Exam Physical Exam: General: no acute distress; non-toxic appearing; well-nourished; cooperative; resting comfortably in chair HEENT: normocephalic, atraumatic; no scleral icterus; PERRLA w/ EOMs intact; vision and hearing grossly intact Neck: supple; no lymphadenopathy; trachea midline Skin: warm, dry without signs of tenting; no cyanosis; no rashes, bruising, lesions, or erythema noted CV: chest wall NTP; regular rate with irregular rhythm S1/S2 normal; no murmurs/rubs/gallops; pulses intact and symmetric at radial, DP, and PT Lungs: (+) O2 nasal cannula; no acute respiratory distress; symmetrical chest wall expansion; (+) coarse breath sounds/diminshed ABD: Soft, NTP; BS present; no rebound/guarding; no distention MSK: no tics or fasciculations; (+) trace edema noted in the LEs b/l, nonerythematous, no calf tenderness Neuro: A&Ox3; normal mood and affect; fluent speech; no focal deficits; sensation grossly intact in the LEs b/l Results & Data Results & Data Vital Signs (Past 12 Hours) Vital Signs Temperature, heart rate, respiratory rate, blood pressure, oxygen saturation and flow rate reviewed Temp Pulse Resp BP Pulse Ox O2 Del Method O2 Flow Rate 11/26/24 15:48 97.9 F 76 17 135/75 96 Nasal Cannula 2 11/26/24 11:17 97.3 F L 89 16 117/70 97 Nasal Cannula 2 11/26/24 11:04 97.5 F L 79 18 120/70 95 Nasal Cannula 2 11/26/24 09:00 Nasal Cannula 2 Laboratory Results CBC, CMP, BNP reviewed Diagnostic Findings Echocardiogram reviewed ECG Additional Comments: ECG reviewed PG Care Time/CCT Total # of Minutes Spent Total Time Spent with Patient: Total time spent is greater than 50% in coordination of care (as documented) at patient's floor/unit and/or counseling patient: Coding Level of Care Code None Diagnoses Acute respiratory failure with hypoxia J96.01 Acute on chronic diastolic heart failure I50.33 Heart failure type: diastolic Mitral valve stenosis, severe I05.0 Atrial fibrillation I48.91 Atrial fibrillation type: unspecified Controlled type 2 diabetes mellitus, without long-term current use of insulin E11.9 (2) Acute on chronic heart failure Heart failure type: diastolic Qualified Code(s): I50.33 - Acute on chronic diastolic (congestive) heart failure (4) Atrial fibrillation Atrial fibrillation type: unspecified Qualified Code(s): I48.91 - Unspecified atrial fibrillation
[2024-11-27 06:27] LABS: Hematocrit (blood only) 36.2 % (37.0-47.0); Hemoglobin 11.8 g/dl (12.0-16.0); Mean Corpuscular Hemoglobin 33.5 pg (25.0-34.0); Mean Corpuscular Hgb Conc 32.6 g/dL (32.0-36.0); Mean Corpuscular Volume 102.8 fL (80.0-100.0); Mean Platelet Volume 10.2 fL (9.4-12.4); Platelet Count 163 K/uL (130-400); RDW Coefficient of Variation 14.6 % (11.5-14.5); RDW Standard Deviation 54.7 fL (36.4-46.3); Red Blood Count 3.52 M/uL (4.20-5.40); White Blood Count 6.16 K/ul (4.8-10.8)
[2024-11-27 09:29] LABS: Calcium 8.6 mg/dl (8.6-10.3); Potassium 3.8 mmol/L (3.5-5.1)
[2024-11-27 09:34] LABS: BUN Creatinine Ratio 20.6 (10-20); Creatinine Clr Calc Pharmacy 51.4 ml/min
--- NOTE | 2024-11-27 16:51 | Cardiology Consultation ---
Date of Consultation November 27, 2024 Assessment & Plan (1) Mitral valve stenosis, severe: (2) Acute on chronic diastolic heart failure: (3) Acute hypoxemic respiratory failure: (4) Atrial fibrillation: Plan 1. Acute hypoxemic respiratory failure: Likely related to pulmonary vascular congestion. This is in the setting of known severe mitral stenosis. She did undergo administration of diuretics. Unclear response based on her record although symptomatically much improved. She takes her Lasix 4 times per week. She would likely benefit from taking it on a daily basis. No other clear precipitant. In chronic atrial fibrillation. No dietary indiscretion. 2. Mitral stenosis: Severe. This has been progressive over the years. Now that she is symptomatic she is likely to have recurrences of her decompensated heart failure. We discussed the only viable solution for avoiding additional admission would be surgical intervention. She is understandably hesitant to commit. Will try volume management at this time and controlling her ventricular rates. 3. Atrial fibrillation: Permanent. Adequate rate control on digoxin and metoprolol. Based on her high digoxin level I think she would benefit from taking her current dose every other day. Additionally, in the setting of severe mitral stenosis she should be switched from apixaban to warfarin. 4. Right ventricular failure: She has an element of pulmonary hypertension as well. This is likely related to her valvular heart disease and likely an element of diastolic dysfunction as well. Again, intervention is simply volume management and controlling her ventricular rates. Recommendations: Increase outpatient diuretic to daily dosing Reduce digoxin to every other day dosing Discontinue apixaban and start warfarin When she is well compensated not requiring supplemental oxygen she could be discharged with follow-up in the outpatient setting. We did discuss the option of evaluation for mitral valve replacement and she will decide if she wants to pursue this evaluation. Cardiology will sign off at this point. Please contact the on-call [facility] lien searcher if there are additional concerns or questions. History of Present Illness Reason for Consultation: Shortness of breath, congestive heart failure, abnormal echocardiogram Requesting Physician: Kelsy Attending Physician: Sol Montoya MD History of Present Illness The patient is an 89-year-old woman with a history of permanent atrial fibrillation, prior cerebrovascular event, hypertension, diabetes and valvular heart disease who presents to the hospital with symptoms of dyspnea. Patient states that in general she does not have shortness of breath. She ambulates with a walker and does little strenuous activity. She is limited mostly by gait instability and overall deconditioning. She does report symptoms of dizziness which are longstanding in nature. She does not feel that these are presyncopal in nature but simply a sense of lightheadedness that is not exclusively positional. No history of syncope. She is not aware of any palpitations. She is not having symptoms of chest pain. She does check her oxygen and weight every day. She noticed some weight gain over the past few days and also noticed significantly reduced oxygen saturation. Based on this information was brought to the hospital for evaluation. She is felt to have an element of pulmonary vascular congestion and underwent a diuresis. Echocardiogram was also obtained and we are consulted for evaluation. Currently she is feeling quite well. She states that her breathing is improved. She reports being ambulatory around the [place] earlier today with her walker. She not reported limiting dyspnea. No orthopnea. Allergies Allergy/AdvReac Type Severity Reaction Status Date / Time amoxicillin Allergy Intermediate RASH Verified 11/24/24 22:30 Penicillins Allergy Intermediate RASH Verified 11/24/24 22:30 pravastatin Allergy Intermediate MYALGIA Verified 11/24/24 22:30 simvastatin Allergy Intermediate MYALGIA Verified 11/24/24 22:30 dulaglutide [From [facility]] AdvReac Intermediate Vomiting Verified 11/24/24 22:30 Home Medications Medication Instructions Recorded Confirmed Type cyanocobalamin (vitamin B-12) 1,000 mcg PO QAM 01/27/19 09/11/24 History 1,000 mcg tablet (Vitamin B-12) sennosides 8.6 mg-docusate sodium 1 tab PO BID 01/27/19 11/24/24 History 50 mg tablet (Senna-S) aspirin 81 mg tablet,delayed 81 mg PO QAM 10/28/22 11/24/24 History release calcium 600 mg (as 1 tab PO HS 11/06/22 11/24/24 History carbonate)-vitamin D3 10 mcg (400 unit) tablet (Calcium 600 + D(3)) acetaminophen 500 mg tablet 1,000 mg PO TID PRN Pain 08/28/23 11/24/24 History (Tylenol Extra Strength) polyethylene glycol 3350 17 gram 17 g PO DAILY PRN Constipation 08/28/23 11/24/24 History oral powder packet (Miralax) betamethasone dipropionate 0.05 % 1 applic topical UD PRN Other 11/25/23 11/24/24 History topical cream cholecalciferol (vitamin D3) 25 1,000 unit PO DAILY 02/12/24 11/24/24 History mcg (1,000 unit) capsule (Vitamin D3) atorvastatin 20 mg tablet 20 mg PO HS #90 tabs 03/06/24 11/24/24 Rx duloxetine 20 mg capsule,delayed 20 mg PO QAM #90 caps 03/06/24 11/24/24 Rx release apixaban 2.5 mg tablet (Eliquis) 2.5 mg PO BID #180 tabs 04/06/24 11/24/24 Rx pregabalin 75 mg capsule (Lyrica) 75 mg PO HS #90 caps 06/25/24 11/24/24 Rx Myrbetriq 25 mg tablet,extended 25 mg PO QAM #90 tabs 07/14/24 11/24/24 Rx release (mirabegron) metformin 500 mg tablet,extended 500 mg PO DAILY #90 tabs 07/16/24 11/24/24 Rx release 24 hr digoxin 125 mcg (0.125 mg) tablet 125 mcg PO .COMPLEX #65 tabs 08/26/24 11/24/24 Rx furosemide 20 mg tablet 20 mg PO 4XWK 09/11/24 11/24/24 History potassium chloride 10 mEq 10 meq PO 4XWK When taking 09/11/24 11/24/24 History tablet,extended release(part/cryst) furosemide metoprolol succinate 50 mg 50 mg PO BID #180 tabs 09/21/24 11/24/24 Rx tablet,extended release 24 hr amlodipine 5 mg tablet (Norvasc) 5 mg PO QAM #90 tabs 11/12/24 11/24/24 Rx Patient History Medical History Acute ischemic stroke Diabetes mellitus type II, controlled Hemorrhoids Fall Hip fracture V tach Atrial fibrillation Surgical History S/P appendectomy S/P lumbar laminectomy S/P cataract surgery S/P total hip arthroplasty Family History Grandfather Coronary heart disease Mother Coronary heart disease Sister Diabetes Father Coronary heart disease Other Family history non-contributory Denies family history of Ovarian cancer Prostate cancer Myocardial infarction Breast cancer Colorectal cancer Social History Smoking Status: Never smoker Second Hand Exposure: No; Do You Dip or Chew Tobacco: No; Hx Alcohol Use: No Hx Substance Use: No Preferred Language: Swedish Communication Ability: Effective Visual Impairment: No Limitations Hearing Ability: Use of Hearing Aid Masking Machine Operator Required: No Beliefs That Will Affect Care: None marital status: / Current Living Situation: Alone Current Living Situation Comment: Pt states she lives at home alone in a two story house current occupational status: retired 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 Mood affect appear normal. She answered all questions appropriately. Some slurring of the speech at times. HEENT: Sclerae are anicteric. Pupils are equal and reactive to light and accommodation. Extraocular movements were intact. Neuro: Cranial nerves intact Lungs: Some crackles in the left base. Normal respiratory effort. No expiratory wheezing. Cardiac: The rhythm was irregular. S1 and S2 were normal. The PMI was not markedly displaced on palpation. Abdomen: The abdomen was soft and nontender. Extremities: Patient has bilateral radial pulses that are equal in intensity. There is no evidence cyanosis or clubbing. Mild lower extremity edema Skin: There are no rashes noted on examination today. Results & Data Vital Signs (Past 12 Hours) Vital Signs Temp Pulse Pulse Resp BP Pulse Ox O2 Del Method 11/27/24 15:39 36.5 C 65 17 114/57 L 93 Nasal Cannula 11/27/24 15:30 68 11/27/24 10:29 36.5 C 69 16 114/65 94 Nasal Cannula 11/27/24 07:30 Nasal Cannula 11/27/24 07:20 36.5 C 75 16 155/81 H 94 Nasal Cannula O2 Flow Rate 11/27/24 15:39 2 11/27/24 15:30 11/27/24 10:29 2 11/27/24 07:30 2 11/27/24 07:20 2 Laboratory Results Abnormal Lab Results 11/26/24 11/26/24 11/27/24 18:58 20:35 05:48 WBC 6.16 RBC 3.52 L Hgb 11.8 L Hct 36.2 L MCV 102.8 H MCH 33.5 MCHC 32.6 RDW Std Deviation 54.7 H RDW Coeff of Diya 14.6 H Plt Count 163 MPV 10.2 Sodium 140 Potassium 3.8 Chloride 104 Carbon Dioxide 30 Anion Gap 6 BUN 14 Creatinine 0.68 Est Cr Clr Drug Dosing 51.4 eGFR 84.24 BUN/Creatinine Ratio 20.6 H Glucose 120 H POC Glucose 127 H Calcium 8.6 Troponin I High Sens 7.2 B-Natriuretic Peptide 628 H Vitamin B12 839 11/27/24 11/27/24 08:05 11:56 WBC RBC Hgb Hct MCV MCH MCHC RDW Std Deviation RDW Coeff of Diya Plt Count MPV Sodium Potassium Chloride Carbon Dioxide Anion Gap BUN Creatinine Est Cr Clr Drug Dosing eGFR BUN/Creatinine Ratio Glucose POC Glucose 116 H 198 H Calcium Troponin I High Sens B-Natriuretic Peptide Vitamin B12 Diagnostic Findings Echocardiogram 11/26/2024: Normal LV systolic function with ejection fraction of 60 to 65%. Moderate to severely dilated right ventricle with mild to moderate reduced RV systolic function. Severe biatrial dilation. Severe mitral stenosis. Small pericardial effusion. PG Care Time/CCT Total # of Minutes Spent Total Time Spent with Patient: Total time spent is greater than 50% in coordination of care (as documented) at patient's floor/unit and/or counseling patient: Coding Level of Care Code 10363 INT INP/OBS CARE MIN Diagnoses Mitral valve stenosis, severe I05.0 Acute on chronic diastolic heart failure I50.33 Acute hypoxemic respiratory failure J96.01 Atrial fibrillation I48.91 Atrial fibrillation type: unspecified (4) Atrial fibrillation Atrial fibrillation type: unspecified Qualified Code(s): I48.91 - Unspecified atrial fibrillation
--- NOTE | 2024-11-27 18:59 | Hospitalist Progress Note ---
<Statement entered by Sol Montoya MD - 11/27/24 19:40> I have reviewed vital signs, chart notes, labs and imaging. I have personally seen, evaluated and examined the patient. I have also discussed the management of the patient with the CINDY and I agree with the exam findings documented in the history and physical examination and the documented assessment and plan unless otherwise stated below. 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 Solomon recommended changing from apixaban to warfarin for valvular disease as well as qod dosing of digoxin Surgical treatment is unfortunately the only thing that is effective for the MS Date of Service November 27, 2024 Assessment & Plan (1) Acute respiratory failure with hypoxia: (2) Acute on chronic heart failure: (3) Mitral valve stenosis, severe: (4) Atrial fibrillation: (5) Controlled type 2 diabetes mellitus, without long-term current use of insulin: Plan 89-year-old female PMHx CHF, A-fib on Eliquis, HTN, prior CVA, T2DM, and depression presenting via EMS for SOB starting the day of arrival. ED evaluation reveals no leukocytosis, H&H stable, CMP BUN 24, ratio 30.4, bilirubin 1.7; troponin 10.3; BNP 1036; BioFire negative; CXR appears to have infiltrates,EKG A-fib at 85 bpm. Provided with Rocephin x 1 dose in ED. #Acute hypoxic respiratory failure - Patient presented to ED with oxygen saturation of 78% on RA, improved to 93% on 4L O2 Nasal Cannula. No O2 therapy at baseline. -Likely secondary to acute on chronic heart failure and severe valvular disease -Transitioned from 4L to 2L O2 nasal cannula on 11/25 and has maintained O2 saturations above 90% -Oxygen saturations today have been in the mid-upper 90s on 2L. -Continue to monitor and titrate if able -Will likely need home oxygen, will order 2 step test for tomorrow. #Acute on chronic diastolic heart failure/Reduced RV systolic function/Mitral Valve disease - Patient appears euvolemic on exam. Labs and vitals WNL - Continue Lasix 20mg BID with potassium 10 meQ daily - Cardiology Consult to be completed today. #HTN/Atrial Fibrillation/Hyperlipidemia/History of CVA - Outpatient cardiology visit on 09/11/2024 noted that digoxin was to be discontinued for bradycardia. - She has been receiving Digoxin since admission. Heart rate has been controlled. Digoxin level WNL. - Will continue for now, appreciate cardiology input regarding further management - Continue metoprolol succinate 50mg daily and amlodipine 5mg daily - Anticoagulation with Eliquis 2.5mg BID - Continue atorvastatin 20mg daily #Type 2 Diabetes Mellitus, controlled, without [facility] use of insulin - Most recent A1C 08/2024 @ 6.2% - Metformin ER 500mg PO daily - SSI deferred at this time - Glucose has remained WNL - Continue to monitor BSG ACHS and adjust regimen as needed #OAB- Myrbetriq #Depression- Cymbalta #Peripheral neuropathy- Pregablin Dispo: Admit, PCU VTE prophylaxis: Eliquis + SCDs Consider discharge this weekend pending 2 step test/cardiology recommendations. Admission and Anticipated Discharge Date Admission Date: November 24, 2024 Subjective Patient is an 89-year-old female who has been admitted for acute respiratory failure with hypoxia requiring o2 nasal cannula to maintain adequate saturations, not previously on home oxygen. Today, she states she is feeling pretty good. Her daughter is present at bedside. She is eating and drinking well, no elimination concerns. She is ambulating with rolling walker. She reports cough has improved and chronic orthopnea, specifically denies headache, dizziness, lightheadedness, blurr y/double vision, chest pain/pressure, pain in jaw/neck/left arm, productive cough, palpitations, syncope, presyncope, abdominal pain, nausea/vomiting, blood in stool or urine, weakness. She remains on 2L O2 continuous to maintain sufficient oxygenation. Her saturations have remained in the 90s today. Review of Systems Review of Systems: See HPI Physical Exam Physical Exam: General: no acute distress; non-toxic appearing; well-nourished; cooperative; resting comfortably in chair HEENT: normocephalic, atraumatic; no scleral icterus; PERRLA w/ EOMs intact; vision and hearing grossly intact Neck: supple; no lymphadenopathy; trachea midline Skin: warm, dry without signs of tenting; no cyanosis; no rashes, bruising, lesions, or erythema noted CV: chest wall NTP; regular rate with irregular rhythm S1/S2 normal; no murmurs/rubs/gallops; pulses intact and symmetric at radial, DP, and PT Lungs: (+) O2 nasal cannula; no acute respiratory distress; symmetrical chest wall expansion; (+) coarse breath sounds at lung bases ABD: Soft, NTP; BS present; no rebound/guarding; no distention MSK: no tics or fasciculations; No edema noted in the LEs b/l, nonerythematous, no calf tenderness Neuro: A&Ox3; normal mood and affect; fluent speech; no focal deficits; sensation grossly intact in the LEs b/l Results & Data Results & Data Vital Signs (Past 12 Hours) Vital Signs Temperature, heart rate, respiratory rate, blood pressure, oxygen saturation, oxygen flow rate reviewed Temp Pulse Pulse Resp BP Pulse Ox O2 Del Method 11/27/24 16:15 83 11/27/24 16:15 Nasal Cannula 11/27/24 15:39 97.7 F 65 17 114/57 L 93 Nasal Cannula 11/27/24 15:30 68 11/27/24 10:29 97.7 F 69 16 114/65 94 Nasal Cannula 11/27/24 07:30 Nasal Cannula 11/27/24 07:20 97.7 F 75 16 155/81 H 94 Nasal Cannula O2 Flow Rate 11/27/24 16:15 11/27/24 16:15 2 11/27/24 15:39 2 11/27/24 15:30 11/27/24 10:29 2 11/27/24 07:30 2 11/27/24 07:20 2 Laboratory Results CBC, BMP, BNP, vitamin B12 reviewed ECG Additional Comments: ECG reviewed PG Care Time/CCT Total # of Minutes Spent Total Time Spent with Patient: Total time spent is greater than 50% in coordination of care (as documented) at patient's floor/unit and/or counseling patient: Coding Level of Care Code None Diagnoses Acute respiratory failure with hypoxia J96.01 Acute on chronic diastolic heart failure I50.33 Heart failure type: diastolic Mitral valve stenosis, severe I05.0 Atrial fibrillation I48.91 Atrial fibrillation type: unspecified Controlled type 2 diabetes mellitus, without long-term current use of insulin E11.9 (2) Acute on chronic heart failure Heart failure type: diastolic Qualified Code(s): I50.33 - Acute on chronic diastolic (congestive) heart failure (4) Atrial fibrillation Atrial fibrillation type: unspecified Qualified Code(s): I48.91 - Unspecified atrial fibrillation
[2024-11-27 20:07] LABS: Magnesium 1.8 mg/dl (1.7-2.4)
--- NOTE | 2024-11-27 20:27 | Electrocardiogram Report ---
Test Reason : Blood Pressure : */* mmHG Vent. Rate : 86 BPM Atrial Rate : * BPM P-R Int : * ms QRS Dur : 76 ms QT Int : 370 ms P-R-T Axes : * -56 41 degrees QTcB Int : 442 ms Atrial fibrillation Left axis deviation Nonspecific T wave abnormality Poor R wave progression, consider anterior OR vs. lead placement vs. LVH Abnormal ECG When compared with ECG of 24-Nov-2024 21:40, Nonspecific T wave abnormality now evident in Anterolateral leads Confirmed by Preston Baker ([id number]) on 11/27/2024 8:26:55 PM Referred By: REFERRED SELF Confirmed By: Preston Baker
[2024-11-28] MEDS: ACETAMINOPHEN 325 MG TAB PO PRN (03:28)
[2024-11-28 06:27] LABS: Hematocrit (blood only) 39.3 % (37.0-47.0); Hemoglobin 12.7 g/dl (12.0-16.0); Mean Corpuscular Hemoglobin 33.3 pg (25.0-34.0); Mean Corpuscular Hgb Conc 32.3 g/dL (32.0-36.0); Mean Corpuscular Volume 103.1 fL (80.0-100.0); Mean Platelet Volume 9.9 fL (9.4-12.4); Platelet Count 175 K/uL (130-400); RDW Coefficient of Variation 14.6 % (11.5-14.5); RDW Standard Deviation 55.7 fL (36.4-46.3); Red Blood Count 3.81 M/uL (4.20-5.40); White Blood Count 6.36 K/ul (4.8-10.8)
[2024-11-28 06:41] LABS: Calcium 8.9 mg/dl (8.6-10.3); Creatinine Clr Calc Pharmacy 49.9 ml/min; Magnesium 1.9 mg/dl (1.7-2.4); Potassium 4.1 mmol/L (3.5-5.1)
--- NOTE | 2024-11-28 08:04 | Hospitalist Progress Note ---
<Statement entered by Sol Montoya MD - 11/28/24 18:44> I have reviewed vital signs, chart notes, labs and imaging. I have personally seen, evaluated and examined the patient. I have also discussed the management of the patient with the CINDY and I agree with the exam findings documented in the history and physical examination and the documented assessment and plan unless otherwise stated below. Lucinda is not short of breath at this time, her oxygen was good this morning staying around 92% at rest and with exertion on room air. However this afternoon she recurrently dropped down to the mid 80s on room air and had to be placed back on 2 L. she is not having any cough sputum or chest pain physical exam is notable for coarse crackles persisting in basilar and mid taylor bilaterally posteriorly, neck veins are not elevated she is sitting completely upright however, no peripheral edema A/P: Acute on chronic HFpEF, severe mitral stenosis, valvular atrial fibrillation -I think she is euvolemic. decreased lasix to daily. she was already taking daily for at least several weeks [employer] so will need dose increase. 40 mg four days a week and PRN may be more effective -I had a detailed discussion with Lucinda and her daughter today regarding the coating engineer's recommendation to change from apixaban to warfarin. We discussed that warfarin is shown to have same bleeding risk, less stroke and mortality in afib with mod-severe mitral stenosis in the invictus trial. Study participants were much younger than Lucinda, however. She is worried about warfarin because her sister had a very difficult time on it with respect to her dosing. We discussed what warfarin monitoring and diet would be like (mainly day-to-day consistency in diet). Getting blood draws would be a significant barrier. Monthly would be ok because her daughter could handle it, but more frequent would be a difficult transportation problem. Home health blood draws could be used at the beginning. Longer term home monitoring might be available, however Lucinda was unable to handle using a glucometer in the past so that's not a good option. Lucinda's priority at this point is maintaining her quality of life. Stroke and mortality benefit of warfarin is statistically significant, but absolute benefit is fairly small within her life span. At this time they prefer to continue apixaban and discuss it further with her primary care doctor and her coating engineer. Persistent hypoxia - she does have persistent crackles on lung exam despite euvolemia. I do not think she has pneumonia but need to consider. Pulmonary fibrosis could also cause this picture. Will repeat her CXR and procalcitonin. She does not appear to have high aspiration risk. PE would be unlikely since she is chronically anticoagulated, and finding would not county records management officer. Date of Service November 28, 2024 Assessment & Plan (1) Acute respiratory failure with hypoxia: (2) Acute on chronic heart failure: (3) Mitral valve stenosis, severe: (4) Atrial fibrillation: (5) Controlled type 2 diabetes mellitus, without long-term current use of insulin: Plan 89-year-old female PMHx CHF, A-fib on Eliquis, HTN, prior CVA, T2DM, and depression presenting via EMS for SOB starting the day of arrival. ED evaluation reveals no leukocytosis, H&H stable, CMP BUN 24, ratio 30.4, bilirubin 1.7; troponin 10.3; BNP 1036; BioFire negative; CXR appears to have infiltrates,EKG A-fib at 85 bpm. Provided with Rocephin x 1 dose in ED. #Acute hypoxic respiratory failure - Patient presented to ED with oxygen saturation of 78% on RA, improved to 93% on 4L O2 Nasal Cannula. No O2 therapy at baseline. - secondary to acute on chronic heart failure and severe valvular disease - transitioned from 4L to 2L O2 nasal cannula on 11/25 and has maintained O2 saturations above 90% -O2 saturation this AM 99% on 2L. -Oxygen was removed and patient is saturating at 92% on room air -Two-step completed and oxygen was at 92%, does not need home O2. #Acute on chronic diastolic heart failure/Reduced RV systolic function/Mitral Valve disease - Patient states she was taking Lasix 20mg daily for weeks prior to admission, not 4x/week. - Labs and vitals WNL - Cardiology consult completed with recommendations as noted below: Increase outpatient diuretic to daily dosing Reduce digoxin to every other day dosing Discontinue apixaban and start warfarin Did note that she will likely have reoccurrences of decompensated HF and only solution would be surgery She is hesitant to commit at this time and will decide if she wants to pursue this evaluation. -Patient with cool extremities (toes bilaterally) and increased capillary refill >2 seconds, likely related to dehydration secondary to diuresis. -Decrease Lasix to 20 mg daily -Continue to monitor. #HTN/Atrial Fibrillation/Hyperlipidemia/History of CVA - Outpatient cardiology visit on 09/11/2024 noted that digoxin was to be discontinued for bradycardia. - She has been receiving Digoxin since admission. Heart rate has been controlled. Digoxin level 1.2. - Continue metoprolol succinate 50mg daily and amlodipine 5mg daily - Continue atorvastatin 20mg daily - Switch to digoxin every other day. Last dose 11/26. -Patient not sure if she is willing to switch from Eliquis to warfarin secondary to lack of transportation -Will discuss with daughter this afternoon, may be able to receive home health for INR checks -Obtain repeat digoxin level prior to discharge #Type 2 Diabetes Mellitus, controlled, without terminal supervisor use of insulin - Most recent A1C 08/2024 @ 6.2% - Metformin ER 500mg PO daily - SSI deferred at this time - Glucose has remained WNL - Continue to monitor BSG ACHS and adjust regimen as needed #OAB- Myrbetriq #Depression- Cymbalta #Peripheral neuropathy- Pregablin Dispo: Admit, PCU VTE prophylaxis: Eliquis + SCDs Anticipate discharge tomorrow or saturday Admission and Anticipated Discharge Date Admission Date: November 24, 2024 Subjective Patient is an 89-year-old female who has been admitted for acute respiratory failure with hypoxia requiring o2 nasal cannula to maintain adequate saturations, not previously on home oxygen. Today, she states she is feeling good. She reports chronic orthopnea, specifically denies headache, dizziness, lightheadedness, blurry/double vision, cough,chest pain/pressure, pain in jaw/neck/left arm, palpitations, syncope, presyncope, abdominal pain, nausea/vomiting, blood in stool or urine, weakness. Her oxygen saturation this AM was at 99% and she was taken off of O2. Her oxygen saturation has been rechecked and she is at 92% on RA. She denies any sob or change since removal of oxygen. I discussed her visit with cardiology yesterday, she remains hesitant to undergo valvular surgery but feels somewhat anxious/overwhelmed about disease progression and likelihood of recurring decompensated HF. I discussed switching from eliquis to warfarin due to valvular disease. She is hesitant because she does not have transportation to get frequent INR checks. She states she has to use bus/van for transportation. Overall, she is very compliant with checking weight and pulse ox everyday at home, compliant with taking medications as directed. She follows a balanced diet, goes out to eat once/week. She is independent at home and ambulates with rolling walker. She has safety measures in place with rails and stair glider. Review of Systems Review of Systems: See HPI Physical Exam Physical Exam: General: no acute distress; non-toxic appearing; well-nourished; cooperative; resting comfortably in chair HEENT: normocephalic, atraumatic; no scleral icterus; PERRLA w/ EOMs intact; vision and hearing grossly intact Neck: supple; no lymphadenopathy; trachea midline Skin: warm, dry without signs of tenting; no cyanosis; no rashes, bruising, lesions. (+) toes cool bilaterally with red/white discoloration. Increased capillary refill > 2 seconds CV: chest wall NTP; regular rate with irregular rhythm S1/S2 normal; no murmurs/rubs/gallops; pulses intact and symmetric at radial, DP, and PT Lungs: no acute respiratory distress; symmetrical chest wall expansion; (+) fine crackles at lung bases ABD: Soft, NTP; BS present; no rebound/guarding; no distention MSK: no tics or fasciculations; No edema noted in the LEs b/l, nonerythematous, no calf tenderness Neuro: A&Ox3; normal mood and affect; fluent speech; no focal deficits; sensation grossly intact in the LEs b/l Results & Data Results & Data Vital Signs (Past 12 Hours) Vital Signs -Temperature, heart rate, respiratory rate, blood pressure, oxygen saturation, oxygen flow rate reviewed Temp Pulse Pulse Pulse Resp BP BP 11/28/24 07:39 97.2 F L 62 16 155/83 H 11/28/24 03:22 97.7 F 64 18 124/78 11/27/24 23:54 98.1 F 62 16 120/67 11/27/24 21:49 72 11/27/24 21:00 Pulse Ox O2 Del Method O2 Flow Rate 11/28/24 07:39 99 Nasal Cannula 2 11/28/24 03:22 96 Nasal Cannula 2 11/27/24 23:54 97 Nasal Cannula 2 11/27/24 21:49 11/27/24 21:00 Nasal Cannula 2 Laboratory Results CBC, BMP, magnesium reviewed Diagnostic Findings Cardiology consult reviewed PG Care Time/CCT Total # of Minutes Spent Total Time Spent with Patient: Total time spent is greater than 50% in coordination of care (as documented) at patient's floor/unit and/or counseling patient: Coding Level of Care Code None Diagnoses Acute respiratory failure with hypoxia J96.01 Acute on chronic diastolic heart failure I50.33 Heart failure type: diastolic Mitral valve stenosis, severe I05.0 Atrial fibrillation I48.91 Atrial fibrillation type: unspecified Controlled type 2 diabetes mellitus, without long-term current use of insulin E11.9 (2) Acute on chronic heart failure Heart failure type: diastolic Qualified Code(s): I50.33 - Acute on chronic diastolic (congestive) heart failure (4) Atrial fibrillation Atrial fibrillation type: unspecified Qualified Code(s): I48.91 - Unspecified atrial fibrillation
[2024-11-28] MEDS: POTASSIUM CHLORIDE 10 MEQ TABCR PO SCH (09:36)
[2024-11-28] MEDS: DIGOXIN 0.125 MG TAB PO SCH (17:19)
--- NOTE | 2024-11-28 18:45 | Billing Data ---
Date of Service November 28, 2024 Coding Level of Care Code 79678 SUB INP/OBS CARE MIN
--- NOTE | 2024-11-28 20:59 | XRay Report ---
EXAM: XR chest 1V portable CLINICAL HISTORY: Hypoxia. TECHNIQUE: An X-ray image of the chest is obtained in AP projection. COMPARISON: prior chest X-ray dated 11/24/2024. FINDINGS: Pulmonary Parenchyma: Prominent bilateral bronchovascular markings. The previously seen haziness in the right lower field is no longer visualized. No evidence of consolidation, collapse, or focal opacities. No pulmonary nodules are identified. Blunted both costophrenic angles, suggesting minimal pleural effusion or old reaction. Eccentric lucency at right lung field; artifact/skin fold. Heart and Mediastinum: Cardiac size cannot be accurately assessed in AP projection, however cardiac shadow appears enlarged. Atheromatous calcifications in thoracic aorta. Bony Thorax: Bony thorax appears intact without fractures or deformities. Soft Tissues: Soft tissues overlying the chest wall are unremarkable. Cardiac monitoring electrodes. IMPRESSION: 1. No pneumonic patches or cavitary lesions. 2. Interval resolution of the right lower haziness. 3. Prominent bilateral bronchovascular markings, likely mild inflammatory/infectious etiology, reduced on interval. 4. Blunted both costophrenic angles, suggesting minimal pleural effusion or old reaction (unchanged). 5. Apparent mild cardiomegaly. 6. Correlate clinically. Follow-up recommended. Electronically signed by Henok Carrillo 11-28-2024 8:58 PM
[2024-11-29 06:02] LABS: Hematocrit (blood only) 39.1 % (37.0-47.0); Hemoglobin 12.6 g/dl (12.0-16.0); Mean Corpuscular Hemoglobin 33.2 pg (25.0-34.0); Mean Corpuscular Hgb Conc 32.2 g/dL (32.0-36.0); Mean Corpuscular Volume 103.2 fL (80.0-100.0); Mean Platelet Volume 9.8 fL (9.4-12.4); Platelet Count 175 K/uL (130-400); RDW Coefficient of Variation 14.5 % (11.5-14.5); RDW Standard Deviation 55.3 fL (36.4-46.3); Red Blood Count 3.79 M/uL (4.20-5.40); White Blood Count 8.51 K/ul (4.8-10.8)
[2024-11-29 06:15] LABS: BUN Creatinine Ratio 29.7 (10-20); Calcium 8.9 mg/dl (8.6-10.3); Creatinine Clr Calc Pharmacy 53.7 ml/min; Potassium 4.1 mmol/L (3.5-5.1)
--- NOTE | 2024-11-29 10:21 | Hospitalist Progress Note ---
Date of Service November 29, 2024 Assessment & Plan (1) Acute on chronic heart failure: (2) Mitral valve stenosis, severe: (3) Atrial fibrillation: (4) Controlled type 2 diabetes mellitus, without long-term current use of insulin: (5) Acute and chronic respiratory failure with hypoxia: Plan 89-year-old female PMHx CHF, A-fib on Eliquis, HTN, prior CVA, T2DM, and depression presenting via EMS for SOB starting the day of arrival. ED evaluation reveals no leukocytosis, H&H stable, CMP BUN 24, ratio 30.4, bilirubin 1.7; troponin 10.3; BNP 1036; BioFire negative; CXR appears to have infiltrates,EKG A-fib at 85 bpm. Provided with Rocephin x 1 dose in ED. #Acute on chronic hypoxic respiratory failure - Patient presented to ED with oxygen saturation of 78% on RA, improved to 93% on 4L O2 Nasal Cannula. No O2 therapy at baseline. - secondary to acute on chronic heart failure and severe valvular disease. - Asymptomatic to low oxygen saturation and macrocytosis suggesting chronicity to hypoxia - transitioned from 4L to 2L O2 nasal cannula on 11/25 and has maintained O2 saturations above 90% - O2 removed yesterday AM and she maintained adequate saturations until late afternoon -O2 dropped to low 80s and would not return to baseline, 2L nasal cannula re initiated - Nocturnal O2 study/Sleep study performed on RA showing hypoxia (O2 sat- 78%) - Repeat chest xray with increased bronchovascular markings and blunted costophrenic angles bilaterally - CT chest today with cardiomegaly with mild pulmonary edema and small/moderate right pleural effusion and small left pleural effusion. Lower lobe opacities represent atelectasis. Prominent mediastinal lymph nodes, may related to pulmonary edema - Removed O2 cannula and patient desaturating to anywhere from 72-92% on RA at rest - 2 step ordered - Home O2 ordered #Acute on chronic diastolic heart failure/Reduced RV systolic function/Mitral Valve disease - Patient states she was taking Lasix 20mg daily for weeks prior to admission, not 4x/week. - Labs and vitals WNL - Cardiology consult completed with recommendations as noted below: Increase outpatient diuretic to daily dosing Reduce digoxin to every other day dosing Discontinue apixaban and start warfarin Did note that she will likely have reoccurrences of decompensated HF and only solution would be surgery She is hesitant to commit at this time and will decide if she wants to pursue this evaluation. - Lasix was decreased to 20mg daily yesterday as she was mildly dehydrated - Discharge with alternate dosing at home with Lasix 40mg PO daily on // with Lasix 20mg PO daily on Sat///Sat #HTN/Atrial Fibrillation/Hyperlipidemia/History of CVA - Outpatient cardiology visit on 09/11/2024 noted that digoxin was to be discontinued for bradycardia. - She has been receiving Digoxin since admission. Heart rate has been controlled. Digoxin level 1.2. - Continue metoprolol succinate 50mg daily and amlodipine 5mg daily - Continue atorvastatin 20mg daily - Switch to digoxin every other day. Last dose 11/28. Digoxin level - Dr. Lindsay MD and myself had a lengthy conversation with patient and family about anticoagulation therapy. They were counseled on the recommendation for warfarin for anticoagulation, along with information on the mechanism of action of warfarin vs eliquis, along with the risks/benefits associated with use. - Patient and family have decided to remain on eliquis for anticoagulation after carefully considering the risks/benefits of warfarin therapy, along with the impact of use on patient's quality of life and independence #Type 2 Diabetes Mellitus, controlled, without jail use of insulin - Most recent A1C 08/2024 @ 6.2% - Metformin ER 500mg PO daily - SSI deferred at this time - Glucose has remained WNL - Continue to monitor BSG ACHS and adjust regimen as needed #OAB- Myrbetriq #Depression- Cymbalta #Peripheral neuropathy- Pregablin Dispo: Admit, PCU VTE prophylaxis: Eliquis + SCDs Admission and Anticipated Discharge Date Admission Date: November 24, 2024 Subjective Patient is doing well today, ready to be discharged. Yesterday evening, she developed hypoxia on room air with an oxygen saturation of 82% that could not be brought up. She was placed back on O2 nasal cannula. Labs and repeat chest x- ray were ordered. Nocturnal oximetry and sleep study was ordered which revealed nocturnal hypoxia with an O2 saturation of 72%. Currently, she states she is feeling well, no complaints or concerns. She is eating and drinking well, no elimination concerns. She denies fever/chills, headache, dizziness, lightheadedness, presyncope, syncope, chest pain, shortness of breath at rest or with exertion, palpitations, cough, pain with inspiration, abdominal pain, N/V/D/C, dysuria, blood in stool or urine, weakness. Review of Systems Review of Systems: See HPI Physical Exam Physical Exam: General: no acute distress; non-toxic appearing; well-nourished; cooperative; resting comfortably in chair HEENT: normocephalic, atraumatic; no scleral icterus; PERRLA w/ EOMs intact; vision and hearing grossly intact Neck: supple; no lymphadenopathy; trachea midline Skin: warm, dry without signs of tenting; no cyanosis; no rashes, bruising, lesions. CV: chest wall NTP; regular rate with irregular rhythm S1/S2 normal; no murmurs/rubs/gallops; pulses intact and symmetric at radial, DP, and PT Lungs: (+) O2 nasal cannula; no acute respiratory distress; symmetrical chest wall expansion; (+) fine crackles at lung bases ABD: Soft, NTP; BS present; no rebound/guarding; no distention MSK: no tics or fasciculations; No edema noted in the LEs b/l, nonerythematous, no calf tenderness Neuro: A&Ox3; normal mood and affect; fluent speech; no focal deficits; sensation grossly intact in the LEs b/l Results & Data Results & Data Vital Signs (Past 12 Hours) Vital Signs Weight, temperature, heart rate, respiratory rate, blood pressure, oxygen saturation, O2 delivery method/flow rate reviewed Temp Pulse Pulse Pulse Pulse Resp BP 11/29/24 07:55 97.9 F 79 18 127/68 11/29/24 03:35 97.5 F L 95 H 20 11/28/24 23:41 98.1 F 72 16 11/28/24 23:35 81 11/28/24 23:34 90 11/28/24 23:10 80 BP Pulse Ox Pulse Ox Pulse Ox O2 Del Method O2 Del Method O2 Del Method 11/29/24 07:55 95 Nasal Cannula 11/29/24 03:35 113/65 96 Nasal Cannula 11/28/24 23:41 121/69 95 Nasal Cannula 11/28/24 23:35 94 Nasal Cannula 11/28/24 23:34 79 L Room Air 11/28/24 23:10 97 Room Air O2 Flow Rate O2 Flow Rate 11/29/24 07:55 2 11/29/24 03:35 2 11/28/24 23:41 2 11/28/24 23:35 2 11/28/24 23:34 11/28/24 23:10 Laboratory Results CBC, BMP, procalcitonin, magnesium reviewed Diagnostic Findings Chest x-ray reviewed PG Care Time/CCT Total # of Minutes Spent Total Time Spent with Patient: Total time spent is greater than 50% in coordination of care (as documented) at patient's floor/unit and/or counseling patient: Coding Level of Care Code None Diagnoses Acute on chronic diastolic heart failure I50.33 Heart failure type: diastolic Mitral valve stenosis, severe I05.0 Atrial fibrillation I48.91 Atrial fibrillation type: unspecified Controlled type 2 diabetes mellitus, without long-term current use of insulin E11.9 Acute and chronic respiratory failure with hypoxia J96.21 (1) Acute on chronic heart failure Heart failure type: diastolic Qualified Code(s): I50.33 - Acute on chronic diastolic (congestive) heart failure (3) Atrial fibrillation Atrial fibrillation type: unspecified Qualified Code(s): I48.91 - Unspecified atrial fibrillation
[2024-11-29] MEDS: FUROSEMIDE 20 MG TAB PO SCH (10:26)
[2024-11-29 11:57] VITALS: TEMP 98.1
--- NOTE | 2024-11-29 12:27 | CT Scan Report ---
CT OF THE CHEST WITHOUT IV CONTRAST CLINICAL HISTORY: Abnormal chest xray, hypoxia. COMPARISON STUDY: Chest radiographs November 24, 2024 and November 28, 2024. Chest CT October 31, 2016. CT DOSE: 257.64 mGy.cm TECHNIQUE: Axial images of the chest were obtained without IV contrast. Images were reviewed in the axial, sagittal, and coronal planes. IV contrast was not administered for this examination. Automat ed exposure control was utilized for the study. A dose lowering technique was utilized adhering to t he principles of ALARA. FINDINGS: Prominent mediastinal nodes are likely benign. The heart is mildly enlarged. There is a tr isabelle pericardial effusion. Coronary artery calcification is noted. There are small to moderate right a nd small left pleural effusions with associated subpleural opacity suggestive of atelectasis. No pneu mothorax is present. There is mild interlobular septal thickening and groundglass opacities within th e lungs. No consolidation is identified to suggest pneumonia. Central airways are patent. Old T12 com pression fracture is noted. There are no suspicious osseous lesions within the bony thorax. Several h ealing posterior right-sided rib fractures are present. Visualized portions of the upper abdomen are unremarkable on this unenhanced exam. IMPRESSION: 1. Cardiomegaly with mild pulmonary edema and small to moderate right and small left pleural effusion s. Associated lower lobe opacities represent atelectasis. 2. No consolidation to suggest pneumonia. 3. Prominent mediastinal lymph nodes, likely benign. These may be related to pulmonary edema. 4. Several healing posterior right-sided rib fractures. No pneumothorax. ACT 112: Negative or not required by law. Electronically signed by: Cornelio Davison M.D. 11/29/2024 12:24 PM
--- NOTE | 2024-11-29 13:08 | Discharge Summary ---
<Statement entered by Sol Montoya MD - 11/29/24 19:13> I have reviewed vital signs, chart notes, labs and imaging. I have personally seen, evaluated and examined the patient. I have also discussed the management of the patient with the CINDY and I agree with the exam findings documented in the Discharge summary and the documented assessment and plan unless otherwise s tated below. Lucinda presented with severe hypoxia, this was related to acute on chronic diastolic heart failure related to moderate to severe mitral stenosis. She was slowly diuresed and hocks hypoxia significantly improved. labourers consulted and made some medication recommendations, unfortunately the only effective treatment for her mitral stenosis is surgical. she remained mildly hypoxic despite apparent euvolemia, coarse crackles persisted on lung exam. She did not have cough leukocytosis or fever so infection seems unlikely and serial procalcitonin's were low. Pulmonary emb olism is unlikely since she is chronically anticoagulated on apixaban and lacks any other symptoms of DVT/PE. Ultimately we obtained a noncontrast chest CT because I was concerned about potential pulmonary fibrosis or occult pneumonia, it was really unremarkable with some groundglass likely representing pulmonary edema and a lot of atelectasis, bilateral pleural effusions as we would expect from her heart failure. please see my detailed addendum of 11/28 regarding the risk/benefit discussion of continuing apixaban versus changing to warfarin, which is the recommended anticoagulant for significant mitral stenosis combined with atrial fibrillation. Lucinda and her daughter decided that staying on apixaban was worse the increased risk of stroke compared to warfarin because of [id number] issues and significant logistical hurdles. We obtained an overnight oximetry study and she does need nocturnal O2, she was formally tested by RT for hypoxia 2 days in a row and maintains O2 sats greater than 90% at rest and with ambulation I personally spent: 45 minutes today on clinical care activities including: reviewing chart notes and vital signs reviewing labs reviewing studies, chest CT films, overnight oximetry report examining and counseling the patient counseling the patient's family discussions about the plan of care with physician legal document assistant documentation Discharge Summary Date of Service November 29, 2024 Principal Dx & Hospital Course #1 = Principal Diagnosis (1) Acute and chronic respiratory failure with hypoxia: (2) Acute on chronic heart failure: (3) Mitral valve stenosis, severe: (4) Atrial fibrillation: (5) Controlled type 2 diabetes mellitus, without long-term current use of insulin: Plan 89-year-old female PMHx CHF, A-fib on Eliquis, HTN, prior CVA, T2DM, and depression presenting via EMS for SOB starting the day of arrival. ED evaluation reveals no leukocytosis, H&H stable, CMP BUN 24, ratio 30.4, bilirubin 1.7; troponin 10.3; BNP 1036; BioFire negative; CXR appears to have infiltrates,EKG A-fib at 85 bpm. Provided with Rocephin x 1 dose in ED. #Acute on chronic hypoxic respiratory failure - Patient presented to ED with oxygen saturation of 78% on RA, improved to 93% on 4L O2 Nasal Cannula. No O2 therapy at baseline. - secondary to acute on chronic heart failure and severe valvular disease - transitioned from 4L to 2L O2 nasal cannula on 11/25 and has maintained O2 saturations above 90% - O2 removed yesterday AM and she maintained adequate saturations until late afternoon -O2 dropped to low 80s and would not return to baseline, 2L nasal cannula re initiated - Nocturnal O2 study/Sleep study performed on showing hypoxia (O2 sat- 78%) - Repeat chest xray with increased bronchovascular markings and blunted costophrenic angles bilaterally - CT chest today with cardiomegaly with mild pulmonary edema and small/moderate right pleural effusion and small left pleural effusion. Lower lobe opacities represent atelectasis. Prominent mediastinal lymph nodes, may related to pulmonary edema - 2 step ordered x 2, does not qualify for continuous use - Home O2 ordered for nocturnal use #Acute on chronic diastolic heart failure/Reduced RV systolic function/Mitral Valve disease - Patient states she was taking Lasix 20mg daily for weeks prior to admission, not 4x/week. - Labs and vitals WNL - Cardiology consult completed with recommendations as noted below: Increase outpatient diuretic to daily dosing Reduce digoxin to every other day dosing Discontinue apixaban and start warfarin Did note that she will likely have reoccurrences of decompensated HF and only solution would be surgery She is hesitant to commit at this time and will decide if she wants to pursue this evaluation. - Lasix was decreased to 20mg daily yesterday as she was mildly dehydrated - Discharge with alternate dosing at home with Lasix 40mg PO daily on / with Lasix 20mg PO daily on Sat///Sat - Digoxin level WNL -F/U PCP, Cardiology -Referral made for HF clinic #HTN/Atrial Fibrillation/Hyperlipidemia/History of CVA - Outpatient cardiology visit on 09/11/2024 noted that digoxin was to be discontinued for bradycardia. - She has been receiving Digoxin since admission. Heart rate has been controlled. Digoxin level 1.2. - Continue metoprolol succinate 50mg daily and amlodipine 5mg daily - Continue atorvastatin 20mg daily - Switch to digoxin every other day. Last dose 11/28. Digoxin level - Dr. Lindsay MD and myself had a lengthy conversation with patient and family about anticoagulation therapy. They were counseled on the recommendation for warfarin for anticoagulation, along with information on the mechanism of action of warfarin vs eliquis, along with the risks/benefits associated with use. 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 - Most recent A1C 08/2024 @ 6.2% - Metformin ER 500mg PO daily - SSI deferred at this time - Glucose has remained WNL - Continue to monitor BSG ACHS and adjust regimen as needed #OAB- Myrbetriq #Depression- Cymbalta #Peripheral neuropathy- Pregablin Notes For Next Care Provider Medication Changes From Visit Furosemide (Lasix) 20mg tablet - Take 2 tablets by mouth daily on // and 1 tablet by mouth daily on Sat///Sat Potassium supplement 10meq - Take 1 tablet by mouth daily Digoxin 0.125mg - Take 1 tablet by mouth every other day (next dose is due on 11/30/24 at 5:00 pm) Admission HPI Per Admitting Provider 89-year-old female PMHx CHF, A-fib on Eliquis, HTN, prior CVA, T2DM, and depression presenting via EMS for SOB starting the day of arrival. Patient has had approximately 2 weeks of cough and congestion. Patient does periodically check her O2 saturation and when she checked it on the day of arrival it was at 88%. States that approximately 1.5 weeks ago she noticed that she began to have a cough that was overall nonproductive, with 1 occurrence where she had some sputum production. States that since that time, she has been having worsening SOB but on the day of arrival with SOB was most severe. She is also been having some rhinorrhea and sinus congestion. Reports no sore throat or fever/chills. No known sick contacts. Has had some abdominal pain that comes and goes, but overall denying additional GI symptoms to include N/V/D/C. States that she has noticed her weight has gone up slightly, with her dry weight being 120lbs and her weight the day prior to arrival was 123lbs; weight at admission 60.1kg (132lb). Feels as though her feet have been swelling more than usual also. Overall denying chest pain, palpitations, LUTS, numbness/tingling outside of usual, weakness, syncope, or headache. ED evaluation reveals no leukocytosis, H&H stable, VBG's WNL, CMP BUN 24, ratio 30.4, bilirubin 1.7; troponin 10.3; BNP 1036; BioFire negative; CXR appears to have infiltrates, pending official read; EKG A-fib at 85 bpm. Provided with Rocephin in ED. Please see Dr. Emanuel's attestation for adjustments/additions to treatment plan. Admission Exam Per Admitting Provider General: No acute distress Skin: Warm and dry Head: Normocephalic, atraumatic Eyes: PERRL, conjunctivae clear, sclera non-icteric; wearing glasses ENT: External ear and ear canal without swelling; nose atraumatic; good dentition, tongue normal appearance, pharynx normal Neck: Supple, no LAD Cardio: RRR, no M/G/R, S1 and S2 normal Resp: No respiratory distress, Lungs CTA in all lobes bilaterally, no wheezes, rales, or rhonchi Abdomen: Soft, symmetric, nontender; No masses or hepatosplenomegaly; Bowel sounds normoactive MSK: No deformities; pulses palpable and equal; 1+ pitting edema BLE to mid- mcneil. Neuro: Awake, alert; Sensation intact bilaterally; CN grossly intact; dysphagia per baseline from prior CVA Psych: Appropriate mood and affect; good judgement and insight. Discharge Exam General: no acute distress; non-toxic appearing; well-nourished; cooperative; resting comfortably in chair HEENT: normocephalic, atraumatic; no scleral icterus; PERRLA w/ EOMs intact; vision and hearing grossly intact Neck: supple; no lymphadenopathy; trachea midline Skin: warm, dry without signs of tenting; no cyanosis; no rashes, bruising, lesions. CV: chest wall NTP; regular rate with irregular rhythm S1/S2 normal; no murmurs/rubs/gallops; pulses intact and symmetric at radial, DP, and PT Lungs: (+) O2 nasal cannula; no acute respiratory distress; symmetrical chest wall expansion; (+) fine crackles at lung bases ABD: Soft, NTP; BS present; no rebound/guarding; no distention MSK: no tics or fasciculations; No edema noted in the LEs b/l, nonerythematous, no calf tenderness Neuro: A&Ox3; normal mood and affect; fluent speech; no focal deficits; sensation grossly intact in the LEs b/l Discharge Plan Discharge Items Patient Disposition: Home - Self-Care Reason For Visit: HYPOXIA Discharge Diagnosis: Acute on chronic hypoxic respiratory failure, Acute on chronic heart failure, Mitral valve stenosis, severe, Atrial fibrillation, Controlled type 2 diabetes mellitus, without long-term current use of insulin Activity: Resume your previous activity Non-emergency contact: Primary Care Provider and Lard Tub Washer Call non-emergency contact if: you have any medication questions, your symptoms worsen and you have a fever Follow-up/Referrals: Preston Moreno MD [Primary Care Provider] - (Scheduled with Angelika das PA-C on 12/11/24 at 11:00.) Tariq Tolliver MD [Physician] - Rukhsana Medina PA-C [Physician Finishing Machine Tender] - Diet: Heart Healthy and Low Sodium (2gm) Addtl Attending Provider Instructions: Mrs. Young, You were admitted to the hospital with hypoxia, otherwise known as low oxygen level. You had labs and imaging studies which revealed an acute flare up of CHF, along with severe stenosis (narrowing) of your mitral valve. The only treatment for this would be surgery for valve replacement, which you & your family have decided to hold off on having this done right now. We have treated your heart failure with diuretics (Lasix) with improvement. We feel as though you are stable for discharge. We recommend that you follow up with your PCP within one w chilkoot, along with follow up with your labourers. We have also placed a referral for the heart failure clinic. You will also be returning home with oxygen to wear every night while asleep. We encourage you to continue taking your weight and oxygen concentration daily at home and keep track of your values. We recommend you follow a low sodium, balanced diet at home. I have included patient information packets as well for your review, as well as specific packets related to using your oxygen tank and safety. Please contact us or your PCP with any questions or concerns. We have made some changes to your medications, see below: Furosemide (Lasix) 20mg tablet - Take 2 tablets by mouth daily on // and 1 tablet by mouth daily on Sat///Sat Potassium supplement 10meq - Take 1 tablet by mouth daily Digoxin 0.125mg - Take 1 tablet by mouth every other day (next dose is due on 11/30/24 at 5:00 pm) It was a pleasure taking care of you during your stay at [facility]. Addtl Echocardiography Technologist Provider Instructions: Call your Primary Care doctor if any of the following symptoms or problems start or get worse: * Shortness of breath or difficulty breathing * Wake up at night short of breath * Chest pain * Cough * Swelling of your hands, feet, or legs * More fatigued or tired with your normal activity * Palpitations - sudden fast heart beats WEIGHT * Weigh yourself every morning after using the bathroom. * Use the same scale. * Wear the same amount of clothing. * Write your weight down on a chart. * Call your Primary Care doctor if you gain more than 2-3 pounds in 1-2 days. MEDICATIONS * Use this discharge instruction sheet for medication instructions. * Take your medications at the time your doctor ordered. * Do not skip a dose of your medicines. * If you miss a dose of medicine, take it as soon as possible, but DO NOT DOUBLE A DOSE. * Read your medicine information when you get home. * Know all of the side effects of your medicine. If in doubt, ask your pharmacist * Call your Primary Care doctor's office if you have any side effects. * Be sure all of your doctors know what medicine and herbs you take (including cold, flu, and herbal medicine). Take the following with you to your follow-up doctor appointments: * Weight Chart * Medication List * List of questions Do not drink excessive alcohol, beer or wine. Pending Studies at Discharge: No Stand-Alone Forms: My [facility] Medications and DC Order Prescriptions: New digoxin [Digitek] 125 mcg (0.125 mg) Tablet See Rx Instructions .ROUTE .COMPLEX Qty: 30 0RF Rx Instructions: Take 0.125 mg by mouth every other day. Next dose due on Saturday11/30/24 at 5:00 pm potassium chloride 10 mEq Tablet,Er Particles/Crystals 10 meq PO DAILY Qty: 30 0RF Continued atorvastatin 20 mg tablet 20 mg PO HS Qty: 90 3RF duloxetine 20 mg capsule,delayed release(DR/EC) 20 mg PO QAM Qty: 90 3RF Eliquis 2.5 mg tablet 2.5 mg PO BID Qty: 180 3RF pregabalin [Lyrica] 75 mg capsule 75 mg PO HS Qty: 90 1RF Myrbetriq 25 mg tablet extended release 24 hr 25 mg PO QAM Qty: 90 3RF metformin 500 mg tablet extended release 24 hr 500 mg PO DAILY Qty: 90 3RF metoprolol succinate 50 mg tablet extended release 24 hr 50 mg PO BID Qty: 180 3RF amlodipine [Norvasc] 5 mg tablet 5 mg PO QAM Qty: 90 3RF polyethylene glycol 3350 [Miralax] 17 gram powder in packet 17 g PO DAILY PRN (Reason: Constipation) acetaminophen [Tylenol Extra Strength] 500 mg tablet 1,000 mg PO TID PRN (Reason: Pain) cholecalciferol (vitamin D3) [Vitamin D3] 25 mcg (1,000 unit) capsule 1,000 unit PO DAILY cyanocobalamin (vitamin B-12) [Vitamin B-12] 1,000 mcg Tablet 1,000 mcg PO QAM sennosides-docusate sodium [Senna-S] 8.6-50 mg Tablet 1 tab PO BID aspirin 81 mg Tablet,Delayed Release (Dr/Ec) 81 mg PO QAM calcium carbonate-vitamin D3 [Calcium 600 + D(3)] 600 mg-10 mcg (400 unit) Tablet 1 tab PO HS betamethasone dipropionate 0.05 % cream 1 applic TOPICAL UD PRN (Reason: Other) Changed furosemide 20 mg tablet See Rx Instructions .ROUTE .COMPLEX Qty: 60 0RF Rx Instructions: Take 2 tablets by mouth daily on // and 1 tablet by mouth daily Sat///Sat Discontinued digoxin 125 mcg (0.125 mg) tablet 125 mcg PO .COMPLEX Qty: 65 3RF Rx Instructions: 125 mcg orally 5 days qam/week; NONE ON MON & FRI potassium chloride 10 mEq tablet,ER particles/crystals 10 meq PO [id number] Rx Instructions: PER EXT MED LIST "DAILY" Discharge Orders: Discharge Order (Routine); Ordered 11/29/24 Ordered By: Lucrecia Reyes Discharge Order- CHF (Routine); Ordered 11/29/24 Ordered By: Lucrecia Dunbar/Other Patient Handouts: Understanding Oxygen Therapy, Heart Failure Flare Up Signs, Using Oxygen Safely, Heart Failure Dc, Traveling with Oxygen, Using an Oxygen Tank at Home, Falls Prevent Adjust Living Space, Exercises to Prevent Falls, Heart Failure Care, Heart Failure Post Hospital Admission Data Admit Date/Time: 11/24/24 22:48 Attending Provider: Sol Montoya Admit Provider: Kim Emanuel Primary Care Provider: Preston Moreno. Other Providers: Kim Emanuel; Preston Baker; Rukhsana Medina. Other Interventions: Discharge Summary Assessment (RN) Last Done: 11/29/24 14:49 Hospital Stay Data Consultations 11/24/24 22:09 ED Decision to Admit Stat 11/26/24 15:11 Consult Cardiology Routine Diagnostic Imagining Performed 11/29/24 11:43 CT chest diagnostic wo con Urgent Discharge Instructions Given to Patient (Per Discharging Provider) Mrs. Young, [place] were admitted to the hospital with hypoxia, otherwise known as low oxygen level. You had labs and imaging studies which revealed an acute flare up of CHF, along with severe stenosis (narrowing) of your mitral valve. The only treatment for this would be surgery for valve replacement, which you & your family have decided to hold off on having this done right now. We have treated your heart failure with diuretics (Lasix) with improvement. We feel as though you are stable for discharge. We recommend that you follow up with your PCP within one week, along with follow up with your labourers. We have also placed a referral for the heart failure clinic. You will also be returning home with oxygen to wear every night while asleep. We encourage you to continue taking your weight and oxygen concentration daily at home and keep track of your values. We recommend you follow a low sodium, balanced diet at home. I have included patient information packets as well for your review, as well as specific packets related to using your oxygen tank and safety. Please contact us or your PCP with any questions or concerns. We have made some changes to your medications, see below: Furosemide (Lasix) 20mg tablet - Take 2 tablets by mouth daily on // and 1 tablet by mouth daily on Sat///Sat Potassium supplement 10meq - Take 1 tablet by mouth daily Digoxin 0.125mg - Take 1 tablet by mouth every other day (next dose is due on 11/30/24 at 5:00 pm) It was a pleasure taking care of you during your stay at [facility]. Total Time Total Time Spent Total Time Spent (In Minutes): >60 Total Time Includes: Examination of the Patient, Discharge Planning, Medication Reconciliation and Communication With Other Providers Coding Level of Care Code 39744 INP/OBS DISCH >30 MIN Diagnoses Acute and chronic respiratory failure with hypoxia J96.21 Acute on chronic diastolic heart failure I50.33 Heart failure type: diastolic Mitral valve stenosis, severe I05.0 Atrial fibrillation I48.91 Atrial fibrillation type: unspecified Controlled type 2 diabetes mellitus, without long-term current use of insulin E11.9
[2024-11-29 14:50] VITALS: BP 113/65; RESP 18; O2SAT 98
[2024-11-29 15:12] VITALS: PULSE 83
== END 2024-11-29 16:06 | disposition home or self-care (01) | DRG 291 ==
LOC: ED 21:09 → 4W 22:48 → SUATTDRO 22:48 → 4W 11-25 00:18
DX: N32.81 Overactive bladder; Z79.82 Long term (current) use of aspirin; Z88.8 Allergy status to other drugs, medicaments and biological substances; I34.2 Nonrheumatic mitral (valve) stenosis; I50.33 Acute on chronic diastolic (congestive) heart failure; Z79.01 Long term (current) use of anticoagulants; F32.A Depression, unspecified; E11.42 Type 2 diabetes mellitus with diabetic polyneuropathy; Z86.73 Personal history of transient ischemic attack (TIA), and cerebral infarction without residual deficits; J96.01 Acute respiratory failure with hypoxia; Z79.84 Long term (current) use of oral hypoglycemic drugs; Z88.0 Allergy status to penicillin; I11.0 Hypertensive heart disease with heart failure; I48.21 Permanent atrial fibrillation; E78.5 Hyperlipidemia, unspecified; Z79.899 Other long term (current) drug therapy

== ENCOUNTER 2025-07-20 11:58 | Inpatient (IN) ==
--- NOTE | 2025-07-20 12:30 | Emergency Department Note ---
Impression & Plan Acute hypoxemic respiratory failure, Acute exacerbation of congestive heart failure ED Provider Note NAME: FLYNN GABRIEL AGE: 89 SEX: F : 1935 ARRIVES VIA: Walk-In INFORMANT: Patient, ED PROVIDER(S): King Phillip MD CHIEF COMPLAINT: Shortness of breath, outpatient referral, hypoxia MEDICAL DECISION MAKING: Patient presents with the above. IV was established and blood work was obtained along with a chest x-ray. Patient with a normal white count H&H and platelet count kidney function is unremarkable with fairly normal electrolytes. Patient was ordered Lasix 40 IV. The patient's troponin is borderline elevated at 14.4. Urinalysis does show leuks and whites but there are numerous epithelial cells and no bacteria. BioFire negative. Patient had complained of productive sputum and the patient may have pneumonia versus atelectasis versus edema of the left base but did discuss this with the inpatient hospitalist service will add a Pro-Ellis and defer any antibiotic treatment at this time. Patient currently stable on 2 L nasal cannula. Patient was discussed with Esperanza Johnson PA-C and the patient was admitted by Dr. Overton. Patient did have ST depressions anteriorly but Patient currently anticoagulated and w/o chest pain. Troponin borderline elevated no active chest pain only shortness of breath. Critical Care: I have personally spent 35 minutes of critical care time in direct management of this patient. This includes bedside care, interpretation of diagnostic studies, and testing, discussion with consultants, patient, and family members, and other require inpatient management activities. This 35 minutes is in excess of all separately billable procedures. Discussion w/ other healthcare providers: Esperanza Johnson PA-C and Dr. Overton inpatient medicine service Prior /Outside records reviewed: I reviewed part of a PCP visit note from Dr. Carrillo from earlier today. Patient was seen thought to be volume overloaded dry weight from heart failure clinic is 119 today is 129. Patient reportedly has rales and signs of peripheral cyanosis. Differential diagnosis: Reactive airway disease, pneumonia, pneumothorax, COPD, CHF, ACS, pulmonary embolism, musculoskeletal, GERD as well as other pathologies were considered. Diagnostics, as interpreted by me: ECG: A-fib, rate of 77, normal QRS duration slight depressions noted anteriorly. A-fib is old and ST depressions anteriorly may be new from comparison EKG December 04, 2024. Cardiac monitoring: An order was placed for continuous cardiac monitoring. The monitor shows a rate of 75 with irregularly irregular rhythm. Patient was placed on pulse oximetry Medical decision rules: None Imaging studies: I informally interpreted the patient's chest x-ray shows interstitial pulmonary edema with left-sided pleural effusion and possible pneumonia versus edema versus atelectasis at the left base with formal report to follow. HPI:Patient presents from the office today. The patient did have an outpatient appointment after being seen several days prior and started on a Z-Miguel A due to concerns for nasal congestion and cough with occasionally productive discolored sputum. Patient reportedly was seen today was noted to have increased leg swelling weight gain and abnormal breath sounds with associated oxygen requirement and thus was referred to the emergency department. No reported prior history of heart failure. The patient was thought to be dehydrated in the week or so prior so the patient was only taking her Lasix every other day for about the last week in duration. She denies any active chest pain. Patient's daughter reports that she did not know whether or not the patient solely has issues with fluid retention or if she could have concomitant pneumonia or infectious process. PAST MEDICAL HISTORY: See Below PAST SURGICAL HISTORY: See Below SOCIAL HISTORY: See Below HOME MEDICATIONS: See Below ALLERGIES: See Below VITALS: See Below PHYSICAL EXAMINATION: GENERAL: NAD, non-toxic. Wearing glasses, nasal cannula in place. EYE EXAM: Normal conjunctiva. PERRL, no anisocoria and EOM's grossly intact w/o pain. OROPHARYNX: Moist mucus membranes, grossly normal dentition. NECK: Trachea midline, no stridor. Supple, no nuchal rigidity, no adenopathy, non-tender. No signs of meningismus. FROM of the neck with good chin to chest and neck extension. LUNGS: Crackles throughout. Normal chest wall mechanics. HEART: NSR, no MRG. ABDOMEN: Abdomen soft, non-tender, no masses, no rebound or guarding. BACK: No CVA TTP. SKIN: No rashes and no bruising. UPPER EXTREMITIES: Upper extremities are grossly normal. LOWER EXTREMITIES: Grossly normal, trace symmetric pretibial edema without calf pain or erythema. NEURO EXAM: Awake and alert, follows commands, no obvious facial asymmetry, normal speech, moves all 4 extremities. Past Med/Surg History Problem List (Updated 07/20/25 @ 17:21 by King hPillip MD) Acute exacerbation of congestive heart failure (Acute) Acute hypoxemic respiratory failure (Acute) Acute congestive heart failure Fall Right heart failure (HFpEF) heart failure with preserved ejection fraction Acute and chronic respiratory failure with hypoxia Mitral valve stenosis, severe Controlled type 2 diabetes mellitus, without long-term current use of insulin Cardiomegaly Hyperbilirubinemia Atrial fibrillation (Acute) Hypoxia (Acute) Syncope Periprosthetic fracture around internal prosthetic right hip joint, initial encounter (10/28/22) Periprosthetic fracture around internal prosthetic right hip joint from a fall Osteoporosis (Chronic) Altered mental status Hemarthrosis involving knee joint Hypertension (Acute) Acute blood loss anemia Right leg swelling Vitamin D deficiency (Acute) Stress incontinence in female (Acute) Primary localized osteoarthrosis of the hip (Acute) Polycythemia (Acute) Peripheral neuropathy (Acute) Overactive bladder (Acute) Neurologic gait dysfunction (Acute) Microscopic hematuria (Acute) Lumbar radiculopathy (Acute) Expressive aphasia (Acute) Dysphasia following cerebrovascular accident (CVA) (Acute) Disc degeneration, lumbar (Acute) Depression (Acute) Cystocele, midline (Acute) Bilateral carotid artery stenosis (Acute) Allergic rhinitis due to pollen (Acute) Gait abnormality Dizziness (Acute) Psoriasis Candidiasis of breast Anticoagulant long-term use First degree atrioventricular block by electrocardiogram Postmenopausal bleeding Sensorineural hearing loss (SNHL) of both ears Impacted cerumen of both ears B12 deficiency Medical History Acute hypoxemic respiratory failure Acute respiratory failure with hypoxia Acute ischemic stroke Hemorrhoids Hip fracture V tach Atrial fibrillation Surgical History S/P appendectomy S/P lumbar laminectomy S/P cataract surgery S/P total hip arthroplasty Family History Grandfather Coronary heart disease Mother Coronary heart disease Sister Diabetes Father Coronary heart disease Other Family history non-contributory Denies family history of Ovarian cancer Prostate cancer Myocardial infarction Breast cancer Colorectal cancer Social History Smoking Status: Never smoker Second Hand Exposure: No; Do You Dip or Chew Tobacco: No; Hx Alcohol Use: No Hx Substance Use: No Preferred Language: Nepali Communication Ability: Effective Visual Impairment: No Limitations Hearing Ability: Use of Hearing Aid Automatic Profile Shaper Operator Required: No Beliefs That Will Affect Care: None marital status: / Current Living Situation: Alone Current Living Situation Comment: Pt states she lives at home alone in a two story house current occupational status: retired 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 How many Children do You have: 1 Feels Safe at Home: Yes Childhood Exposure to Second-Hand Smoke: No Diet: regular caffeine: Yes during the past year weight has: remained stable Dental Care, Regularly: Yes Physical Activity Frequency: 1-2 Times per Week Seatbelt Use: always Sunscreen Use: Yes Assistive Devices: Walker Allergies Allergies Allergy/AdvReac Type Severity Reaction Status Date / Time amoxicillin Allergy Intermediate RASH Verified 07/20/25 11:00 Penicillins Allergy Intermediate RASH Verified 07/20/25 11:00 pravastatin Allergy Intermediate MYALGIA Verified 07/20/25 11:00 simvastatin Allergy Intermediate MYALGIA Verified 07/20/25 11:00 [facility] AdvReac Intermediate Vomiting Verified 07/20/25 11:00 Home Meds Home Medications Medication Instructions Recorded Confirmed cyanocobalamin (vitamin B-12) 1,000 mcg PO QAM 01/27/19 07/20/25 1,000 mcg tablet (Vitamin B-12) sennosides 8.6 mg-docusate sodium 1 tab PO BID 01/27/19 07/20/25 50 mg tablet (Senna-S) aspirin 81 mg tablet,delayed 81 mg PO QAM 10/28/22 07/20/25 release calcium 600 mg (as 1 tab PO HS 11/06/22 07/20/25 carbonate)-vitamin D3 10 mcg (400 unit) tablet (Calcium 600 + D(3)) acetaminophen 500 mg tablet 1,000 mg PO TID PRN Pain 08/28/23 07/20/25 (Tylenol Extra Strength) polyethylene glycol 3350 17 gram 17 g PO DAILY PRN Constipation 08/28/23 07/20/25 oral powder packet (Miralax) betamethasone dipropionate 0.05 % 1 applic topical UD PRN Other 11/25/23 07/20/25 topical cream cholecalciferol (vitamin D3) 25 1,000 unit PO DAILY 02/12/24 07/20/25 mcg (1,000 unit) capsule (Vitamin D3) collagen 1 ea miscellaneous DAILY 04/27/25 07/20/25 furosemide 20 mg tablet 20 mg PO DAILY PRN Other 06/23/25 07/20/25 Previous Rx's Medication Instructions Recorded metoprolol succinate 50 mg 50 mg PO BID #180 tabs 09/21/24 tablet,extended release 24 hr atorvastatin 20 mg tablet 20 mg PO HS #90 tabs 03/01/25 duloxetine 20 mg capsule,delayed 20 mg PO QAM #90 caps 03/01/25 release apixaban 2.5 mg tablet (Eliquis) 2.5 mg PO BID #180 tabs 03/02/25 potassium chloride 10 mEq 10 meq PO DAILY #90 tabs 03/15/25 tablet,extended release(part/cryst) pregabalin 75 mg capsule (Lyrica) 75 mg PO HS #90 caps 05/14/25 amlodipine 2.5 mg tablet 2.5 mg PO DAILY #90 tabs 06/23/25 metformin 500 mg tablet,extended 500 mg PO DAILY #90 tabs 07/05/25 release 24 hr Results & Data (ED) Vital Signs Vital Signs - 24 hr 07/20/25 12:16 07/20/25 13:07 07/20/25 13:07 Temperature 36.5 C Temperature Source Temporal Artery Scan Pulse Rate 80 Pulse Rate [Apical] 77 Respiratory Rate 18 24 Respiratory Effort / Characteristics Non-Labored Spontaneous Respiratory Depth Normal Blood Pressure 120/72 Blood Pressure [Right Arm] 132/98 Blood Pressure Mean 88 Blood Pressure Mean [Right Arm] 109 Blood Pressure Position Sitting Pulse Oximetry 97 94 95 Oxygen Delivery Method Nasal Cannula Nasal Cannula Nasal Cannula Oxygen Flow Rate 2 2 2 Sepsis Recent Fever Within 48 Hours No Sepsis New/Unexplained Change in Mental Status No Sepsis Action Taken by Nursing No Action Required 07/20/25 13:26 Temperature Temperature Source Pulse Rate 78 Pulse Rate [Apical] Respiratory Rate Respiratory Effort / Characteristics Respiratory Depth Blood Pressure Blood Pressure [Right Arm] Blood Pressure Mean Blood Pressure Mean [Right Arm] Blood Pressure Position Pulse Oximetry Oxygen Delivery Method Oxygen Flow Rate Sepsis Recent Fever Within 48 Hours Sepsis New/Unexplained Change in Mental Status Sepsis Action Taken by [facility] Medications Current Medication List: was personally reviewed by me Laboratory Data Attestation: I reviewed the patient's lab results. 07/20/25 12:49 07/20/25 12:49 Lab Results 07/20/25 Range/Units 12:49 WBC 7.36 (4.8-10.8) K/ul RBC 4.49 (4.20-5.40) M/uL Hgb 14.8 (12.0-16.0) g/dL Hct 45.9 (37.0-47.0) % MCV 102.2 H (80.0-100.0) fL MCH 33.0 (25.0-34.0) pg MCHC 32.2 (32.0-36.0) g/dL RDW Std Deviation 54.0 H (36.4-46.3) fL RDW Coeff of Diya 14.2 (11.5-14.5) % Plt Count 206 (130-400) K/uL MPV 10.0 (9.4-12.4) fL Immature Gran % (Auto) 0.4 % Neut % (Auto) 76.5 % Lymph % (Auto) 11.3 % [place] % (Auto) 10.3 % Eos % (Auto) 0.8 % Baso % (Auto) 0.7 % Neut # (Auto) 5.63 (1.40-6.50) K/uL Lymph # (Auto) 0.83 L (1.20-3.40) K/uL [place] # (Auto) 0.76 H (0.11-0.59) K/uL Eos # (Auto) 0.06 (0.00-0.50) K/uL Baso # (Auto) 0.05 (0.00-0.20) K/uL Immature Gran # (Auto) 0.03 (0.01-0.20) K/uL PT Cancelled INR Cancelled APTT Cancelled PTT Ratio Cancelled Sodium 138 (136-145) mmol/L Potassium 4.6 (3.5-5.1) mmol/L Chloride 101 (98-107) mmol/L Carbon Dioxide 31 (21-32) mmol/L Anion Gap 6 (3-11) BUN 17 (6-23) mg/dl Creatinine 0.73 (0.6-1.2) mg/dl Est Cr Clr Drug Dosing Not Reportable eGFR 79.05 BUN/Creatinine Ratio 23.3 H (10-20) Glucose 137 H (70-99(Fasting)) mg/dl Calcium 9.5 (8.6-10.3) mg/dl Magnesium 1.9 (1.7-2.4) mg/dl Total Bilirubin 1.3 H (0.2-1.0) mg/dl AST 34 (13-39) U/L ALT 22 (7-52) U/L Alkaline Phosphatase 80 (34-104) U/L Troponin I High Sens 14.4 H (0-14) pg/ml Total Protein 7.3 (6.0-8.3) gm/dl Albumin 3.8 (3.4-5.0) gm/dl Globulin 3.5 (2.5-4.0) gm/dl Albumin/Globulin Ratio 1.1 (0.9-2) Procalcitonin 0.02 (0-0.5) ng/ml Urine Color Dark Yellow Urine Appearance Clear (Clear) Urine pH 7.0 (4.5-7.5) Ur Specific [place] 1.021 (1.000-1.030) Urine Protein 2+ H (Negative) Urine Glucose (UA) Negative (Negative) Urine Ketones Negative (Negative) Urine Blood Trace H (Negative) Urine Nitrite Negative (Negative) Urine Bilirubin Negative (Negative) Urine Urobilinogen Negative (Negative) Ur Leukocyte Esterase 2+ H (Negative) Urine WBC (Auto) 21-50 H (0-5) /hpf Urine RBC (Auto) 3-5 H (0-2) /hpf U Hyaline Cast (Auto) 3-5 H (0-2) /lpf U Epithel Cells (Auto) 6-10 H (0-2) /hpf Urine Bacteria (Auto) None Seen (None Seen) Urine Comment Adenovirus (PCR) Not Detected (NotDetected) B. pertussis DNA (PCR) Not Detected (NotDetected) B.parapertussis DNA PCR Not Detected (NotDetected) C. pneumoniae DNA (PCR) Not Detected (NotDetected) Coronavirus OC43 (PCR) Not Detected (NotDetected) Coronavirus HKU1 (PCR) Not Detected (NotDetected) Coronavirus 229E (PCR) Not Detected (NotDetected) SARS-CoV-2 (PCR) Not Detected (NotDetected) Coronavirus NL63 (PCR) Not Detected (NotDetected) Human Metapneumovir PCR Not Detected (NotDetected) Influenza Type A (PCR) Not Detected (NotDetected) Influenza Type B (PCR) Not Detected (NotDetected) M. pneumoniae (PCR) Not Detected (NotDetected) Parainfluenza 1 (PCR) Not Detected (NotDetected) Parainfluenza 2 (PCR) Not Detected (NotDetected) Parainfluenza 3 (PCR) Not Detected (NotDetected) Parainfluenza 4 (PCR) Not Detected (NotDetected) RSV (PCR) Not Detected (NotDetected) Entero/Rhino (PCR) Not Detected (NotDetected) Administered Medications Acetaminophen (Acetaminophen 325 Mg Tab) 650 mg PO Q4H PRN PRN Reason: Pain or Fever Stop: 08/19/25 14:26 Last Admin: 07/20/25 16:02 Dose: 650 mg Documented By: mls Discontinued Medications Furosemide (Furosemide 40 Mg/4 Ml Vial) 40 mg IV ONE ONE Stop: 07/20/25 12:39 Last Admin: 07/20/25 13:04 Dose: 40 mg Documented By: lorri Imaging Data Radiologist's Impression: Chest X-Ray 07/20/25 12:30 XR chest 1V portable CLINICAL HISTORY: Dyspnea COMPARISON STUDY: 11/28/2024 FINDINGS: The heart is enlarged. There are subtle septal lines suggesting mild edema. There is minimal blunting of the right lateral costophrenic angle. A trace effusion cannot be excluded. There are left basilar airspace opacities: pneumonia versus atelectasis versus edema. IMPRESSION: 1. Mild cardiomegaly and radiographic evidence of mild interstitial edema 2. Left basilar airspace opacities: Pneumonia versus atelectasis versus edema. ACT 112: Negative or not required by law. Electronically signed by: John Paul Douglass M.D. 07/20/2025 1:19 PM Discharge Plan Visit Data Chief Complaint: Referred by Doctor Stated Complaint: LOW OXYGEN ED Provider: King Phillip Discharge Problem: Acute hypoxemic respiratory failure, Acute exacerbation of congestive heart failure Patient Disposition: Admitted As Inpatient Condition: Good Discharge Instructions Interventions: ED Discharge Assessment Last Done: 07/20/25 16:36 Discharge Problem: Acute exacerbation of congestive heart failure Qualifiers: Heart failure type: unspecified Qualified Code(s): I50.9 - Heart failure, unspecified
[2025-07-20] MEDS: FUROSEMIDE 40 MG/4 ML VIAL IV ONE (13:04)
[2025-07-20 13:14] LABS: Appearance Urine Clear (Clear); Bacteria Urine Automated None Seen (None Seen); Glucose Urine UA Negative (Negative); WBC Urine Automated 21-50 /hpf (0-5)
[2025-07-20 13:16] LABS: Hematocrit (blood only) 45.9 % (37.0-47.0); Hemoglobin 14.8 g/dL (12.0-16.0); Immature Granulocytes # (auto) 0.03 K/uL (0.01-0.20); Immature Granulocytes % (auto) 0.4 %; Mean Corpuscular Hemoglobin 33.0 pg (25.0-34.0); Mean Corpuscular Volume 102.2 fL (80.0-100.0); Platelet Count 206 K/uL (130-400); RDW Standard Deviation 54.0 fL (36.4-46.3); Red Blood Count 4.49 M/uL (4.20-5.40); White Blood Count 7.36 K/ul (4.8-10.8)
--- NOTE | 2025-07-20 13:21 | XRay Report ---
XR chest 1V portable CLINICAL HISTORY: Dyspnea COMPARISON STUDY: 11/28/2024 FINDINGS: The heart is enlarged. There are subtle septal lines suggesting mild edema. There is minima l blunting of the right lateral costophrenic angle. A trace effusion cannot be excluded. There are le ft basilar airspace opacities: pneumonia versus atelectasis versus edema. IMPRESSION: 1. Mild cardiomegaly and radiographic evidence of mild interstitial edema 2. Left basilar airspace opacities: Pneumonia versus atelectasis versus edema. ACT 112: Negative or not required by law. Electronically signed by: John Paul Douglass M.D. 07/20/2025 1:19 PM
[2025-07-20 13:28] LABS: Alanine Aminotransferase 22 U/L (7-52); Albumin Globulin Ratio 1.1 (0.9-2); Albumin Level 3.8 gm/dl (3.4-5.0); Alkaline Phosphatase 80 U/L (34-104); Anion Gap 6 (3-11); Bilirubin,Total 1.3 mg/dl (0.2-1.0); Blood Urea Nitrogen 17 mg/dl (6-23); Calcium 9.5 mg/dl (8.6-10.3); Carbon Dioxide 31 mmol/L (21-32); Chloride 101 mmol/L (98-107); Globulin 3.5 gm/dl (2.5-4.0); Glucose 137 mg/dl (70-99(Fasting)); Magnesium 1.9 mg/dl (1.7-2.4); Potassium 4.6 mmol/L (3.5-5.1); Sodium 138 mmol/L (136-145); Total Protein 7.3 gm/dl (6.0-8.3)
[2025-07-20 13:53] LABS: Chlamydia pneumoniae PCR Not Detected (NotDetected); Coronavirus 229E PCR Not Detected (NotDetected); Coronavirus CoV-2 (COVID19)PCR Not Detected (NotDetected); Coronavirus HKU1 PCR Not Detected (NotDetected); Coronavirus NL63 PCR Not Detected (NotDetected); Coronavirus OC43PCR Not Detected (NotDetected); Human Metapneumovirus PCR Not Detected (NotDetected); Parainfluenza Virus 1 PCR Not Detected (NotDetected); Parainfluenza Virus 2 PCR Not Detected (NotDetected); Parainfluenza Virus 3 PCR Not Detected (NotDetected); Parainfluenza Virus 4 PCR Not Detected (NotDetected); Respiratory Syncytial VirusPCR Not Detected (NotDetected); Rhinovirus/Enterovirus PCR Not Detected (NotDetected)
[2025-07-20] MEDS ORDERED: ONDANSETRON INJ 2 MG/ML 2 ML VIAL IV PRN (14:27)
[2025-07-20] MEDS ORDERED: MELATONIN 3 MG TAB PO PRN (14:27)
--- NOTE | 2025-07-20 14:33 | History & Physical Report ---
"Date of Service July 20, 2025 Assessment & Plan (1) Acute congestive heart failure: (2) Mitral valve stenosis, severe: (3) Atrial fibrillation: (4) Diabetes mellitus, type II: Plan This is an 89 year old female with past medical history of CHF, A fib, hx CVA who presented to the ED on 07/20/2025 for SOB. While in the ED, her CXR was found to be consistent with CHF. Her CBC was without leukocytosis or anemia. PT/INR is pending. BMP w/ stable renal function & electrolytes. LFTs w/ mild bump of TB to 1.3 but appears consistent w/ previous lab draws. Initial troponin was elevated at 14.4, and procal is negative. BNP is pending. UA does have 2+ leuks w/ a UC pending. She was given 40mg IV Lasix. #Acute CHF | Acute hypoxic respiratory failure w/ hypoxic readings at PCP office in 50s after exertion. Now stable on 2L of oxygen via nasal cannula CXR: consistent w/ CHF. Last Echo 11/2024 --> EF 60-65%; severe mitral stenosis. Trop initially + at 14.4. EKG w/o signs of ischemia & no CP, likely demand in the setting of hypoxia + acute CHF. BNP pending. s/p 40mg IV Lasix --> Continue 40mg IV Lasix BID17 dosing upon admission. Strict I&O's, daily weights (prefer standing if able). #Positive urinalysis w/ UA + on admission however patient is without urinary symptoms, no leukocytosis, & neg procal defer abx on admission, await UC, suspect asymptomatic bacteruria. #Cough| Congestion Recently completed a course of Azithromycin outpatient Procal negative; Respiratory Biofire negative. No leukocytosis. Mucinex BID prn. #A fib | Mitral valve stenosis | HTN rate controlled a fib, continue Eliquis + metoprolol succinate BID HTN stable, continue amlodipine. #Type 2 DM A1c 06/2025 - 5.7% On metformin outpatient - can continue inpatient. defer SSI on admission, can add if BG consistently elevated. #HLD - statin #Hx CVA - ASA #Mental health -Duloxetine #Neuropathy - Lyrica #Constipation - Senna BID, Miralax prn. DVT prophylaxis: Eliquis Code: full Updated daughter at bedside 07/20 Case was discussed with Dr. Overton at time of admission. History of Present Illness Primary Care Provider: Preston Moreno MD This is an 89 year old female with past medical history of CHF, A fib, hx CVA who presented to the ED on 07/20/2025 for SOB. The patient was seen & examined this afternoon with her daughter at bedside. Lucinda reports that she has been having ongoing shortness of breath and cough for about 1 week. She also has been having nasal congestion w/ bright yellow discharge from her nose. She completed a Z pack course with her last dose being [employer]IST. She reports no improvement of symptoms following her z pack. She denies CP. Reports minimal LE edema. Reports she has had poor appetite but has been gaining weight. Her Lasix has also been reduced to every other day dosing at home recently as well. She denies any N/V, abdominal pain, or changes in urination/bowel movements. While in the ED, her CXR was found to be consistent with CHF. Her CBC was without leukocytosis or anemia. PT/INR is pending. BMP w/ stable renal function & electrolytes. LFTs w/ mild bump of TB to 1.3 but appears consistent w/ previous lab draws. Initial troponin was elevated at 14.4, and procal is negative. BNP is pending. UA does have 2+ leuks w/ a UC pending. She was given 40mg IV Lasix. Code discussion did take place and she does confirm that she is a full code. Allergies Allergy/AdvReac Type Severity Reaction Status Date / Time amoxicillin Allergy Intermediate RASH Verified 07/20/25 11:00 Penicillins Allergy Intermediate RASH Verified 07/20/25 11:00 pravastatin Allergy Intermediate MYALGIA Verified 07/20/25 11:00 simvastatin Allergy Intermediate MYALGIA Verified 07/20/25 11:00 dulaglutide [From [facility]] AdvReac Intermediate Vomiting Verified 07/20/25 11:00 Home Medications Medication Instructions Recorded Confirmed Type cyanocobalamin (vitamin B-12) 1,000 mcg PO QAM 01/27/19 07/20/25 History 1,000 mcg tablet (Vitamin B-12) sennosides 8.6 mg-docusate sodium 1 tab PO BID 01/27/19 07/20/25 History 50 mg tablet (Senna-S) aspirin 81 mg tablet,delayed 81 mg PO QAM 10/28/22 07/20/25 History release calcium 600 mg (as 1 tab PO HS 11/06/22 07/20/25 History carbonate)-vitamin D3 10 mcg (400 unit) tablet (Calcium 600 + D(3)) acetaminophen 500 mg tablet 1,000 mg PO TID PRN Pain 08/28/23 07/20/25 History (Tylenol Extra Strength) polyethylene glycol 3350 17 gram 17 g PO DAILY PRN Constipation 08/28/23 07/20/25 History oral powder packet (Miralax) betamethasone dipropionate 0.05 % 1 applic topical UD PRN Other 11/25/23 07/20/25 History topical cream cholecalciferol (vitamin D3) 25 1,000 unit PO DAILY 02/12/24 07/20/25 History mcg (1,000 unit) capsule (Vitamin D3) metoprolol succinate 50 mg 50 mg PO BID #180 tabs 09/21/24 07/20/25 Rx tablet,extended release 24 hr atorvastatin 20 mg tablet 20 mg PO HS #90 tabs 03/01/25 07/20/25 Rx duloxetine 20 mg capsule,delayed 20 mg PO QAM #90 caps 03/01/25 07/20/25 Rx release apixaban 2.5 mg tablet (Eliquis) 2.5 mg PO BID #180 tabs 03/02/25 07/20/25 Rx potassium chloride 10 mEq 10 meq PO DAILY #90 tabs 03/15/25 07/20/25 Rx tablet,extended release(part/cryst) collagen 1 ea miscellaneous DAILY 04/27/25 07/20/25 History pregabalin 75 mg capsule (Lyrica) 75 mg PO HS #90 caps 05/14/25 07/20/25 Rx amlodipine 2.5 mg tablet 2.5 mg PO DAILY #90 tabs 06/23/25 07/20/25 Rx furosemide 20 mg tablet 20 mg PO DAILY PRN Other 06/23/25 07/20/25 History metformin 500 mg tablet,extended 500 mg PO DAILY #90 tabs 07/05/25 07/20/25 Rx release 24 hr Past Med/Surg History Problem List (Updated 07/20/25 @ 15:27 by Esperanza Jackson PA-C) Acute congestive heart failure Fall Right heart failure (HFpEF) heart failure with preserved ejection fraction Acute and chronic respiratory failure with hypoxia Mitral valve stenosis, severe Controlled type 2 diabetes mellitus, without long-term current use of insulin Cardiomegaly Hyperbilirubinemia Atrial fibrillation (Acute) Hypoxia (Acute) Syncope Periprosthetic fracture around internal prosthetic right hip joint, initial encounter (10/28/22) Periprosthetic fracture around internal prosthetic right hip joint from a fall Osteoporosis (Chronic) Altered mental status Hemarthrosis involving knee joint Hypertension (Acute) Acute blood loss anemia Right leg swelling Vitamin D deficiency (Acute) Stress incontinence in female (Acute) Primary localized osteoarthrosis of the hip (Acute) Polycythemia (Acute) Peripheral neuropathy (Acute) Overactive bladder (Acute) Neurologic gait dysfunction (Acute) Microscopic hematuria (Acute) Lumbar radiculopathy (Acute) Expressive aphasia (Acute) Dysphasia following cerebrovascular accident (CVA) (Acute) Disc degeneration, lumbar (Acute) Depression (Acute) Cystocele, midline (Acute) Bilateral carotid artery stenosis (Acute) Allergic rhinitis due to pollen (Acute) Gait abnormality Dizziness (Acute) Psoriasis Candidiasis of breast Anticoagulant long-term use First degree atrioventricular block by electrocardiogram Postmenopausal bleeding Sensorineural hearing loss (SNHL) of both ears Impacted cerumen of both ears B12 deficiency Medical History Acute hypoxemic respiratory failure Acute respiratory failure with hypoxia Acute ischemic stroke Hemorrhoids Fall Hip fracture V tach Atrial fibrillation Surgical History S/P appendectomy S/P lumbar laminectomy S/P cataract surgery S/P total hip arthroplasty Family History Grandfather Coronary heart disease Mother Coronary heart disease Sister Diabetes Father Coronary heart disease Other Family history non-contributory Denies family history of Ovarian cancer Prostate cancer Myocardial infarction Breast cancer Colorectal cancer Social History Smoking Status: Never smoker Second Hand Exposure: No; Do You Dip or Chew Tobacco: No; Hx Alcohol Use: No Hx Substance Use: No Preferred Language: Belarusian Communication Ability: Effective Visual Impairment: No Limitations Hearing Ability: Use of Hearing Aid Bell Spinner Sousaphones Required: No Beliefs That Will Affect Care: None marital status: / Current Living Situation: Alone Current Living Situation Comment: Pt states she lives at home alone in a two story house current occupational status: retired 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 CV: irregularly irregular, + Murmur Abd: normal bowel sounds, non tender, soft Extremities: Moves all extremities, minimal LE edema Neuro: A&O x3, Skin: intact, no lesions noted Results & Data Results & Data Vital Signs (Past 12 Hours) Vital Signs Temp Pulse Pulse Resp BP BP Pulse Ox 07/20/25 13:26 78 07/20/25 13:07 95 07/20/25 13:07 77 24 132/98 94 07/20/25 12:16 36.5 C 80 18 120/72 97 O2 Del Method O2 Flow Rate 07/20/25 13:26 07/20/25 13:07 Nasal Cannula 2 07/20/25 13:07 Nasal Cannula 2 07/20/25 12:16 Nasal Cannula 2 Supervising Physician Co-Signing Physician Notes The patient was seen by me. The chart was reviewed. Case discussed with GETACHEW Mitchell. Agree with assessment and plan PG Care Time/CCT Total # of Minutes Spent Total Time Spent with Patient: Total time spent is greater than 50% in coordination of care (as documented) at patient's floor/unit and/or counseling patient: Coding Level of Care Code 84054 INT INP/OBS CARE 3/75MIN Diagnoses Acute congestive heart failure I50.9 Mitral valve stenosis, severe I05.0 Atrial fibrillation I48.91 Atrial fibrillation type: unspecified Diabetes mellitus, type II E11.9 (3) Atrial fibrillation Atrial fibrillation type: unspecified Qualified Code(s): I48.91 - Unspecified atrial fibrillation"
[2025-07-20] MEDS: ACETAMINOPHEN 325 MG TAB PO PRN (16:02)
[2025-07-20 16:50] LABS: INR 1.3 (0.9-1.1); Partial Thromboplastin Time 30 Seconds (21-31); Prothrombin Time 13.6 Seconds (9.0-12.0)
[2025-07-20] MEDS ORDERED: guaiFENesin 600 MG TABCR PO PRN (17:00)
[2025-07-20] MEDS: FUROSEMIDE 40 MG/4 ML VIAL IV SCH (18:27)
[2025-07-20] MEDS: METOPROLOL SUCC 50MG EXT REL TAB PO SCH (20:10)
[2025-07-20] MEDS: APIXABAN 2.5 MG TAB PO SCH (20:10)
[2025-07-20] MEDS: CALCIUM 600MG + VIT D 400 IU TAB PO SCH (20:11)
[2025-07-20] MEDS: ATORVASTATIN 20 MG TAB PO SCH (20:11)
[2025-07-20] MEDS: DOCUSATE SODIUM/SENNA 50/8.6MG TAB PO SCH (20:11)
[2025-07-20] MEDS: PREGABALIN 75 MG CAP PO SCH (20:11)
[2025-07-21 03:52] LABS: Hematocrit (blood only) 42.0 % (37.0-47.0); Hemoglobin 13.7 g/dL (12.0-16.0); Mean Corpuscular Hemoglobin 32.4 pg (25.0-34.0); Mean Corpuscular Volume 99.3 fL (80.0-100.0); Platelet Count 186 K/uL (130-400); RDW Standard Deviation 52.2 fL (36.4-46.3); Red Blood Count 4.23 M/uL (4.20-5.40); White Blood Count 6.85 K/ul (4.8-10.8)
[2025-07-21 04:07] LABS: Anion Gap 7.0 (3-11); Blood Urea Nitrogen 21.0 mg/dl (6-23); Calcium 9.7 mg/dl (8.6-10.3); Carbon Dioxide 34.0 mmol/L (21-32); Chloride 99.0 mmol/L (98-107); Creatinine Clr Calc Pharmacy 32.4 ml/min; Glucose 121.0 mg/dl (70-99(Fasting)); Magnesium 1.5 mg/dl (1.7-2.4); Potassium 3.8 mmol/L (3.5-5.1); Sodium 140.0 mmol/L (136-145)
[2025-07-21] MEDS: MAGNESIUM SULFATE / D5W 1 GM/100 ML BAG IV SCH (04:48)
[2025-07-21] MEDS ORDERED: POTASSIUM CHLORIDE 10 MEQ TABCR PO SCH (09:00)
[2025-07-21] MEDS: ASPIRIN 81 MG ECTAB PO SCH (09:23)
[2025-07-21] MEDS: CYANOCOBALAMIN (B-12) 500 MCG TABLET PO SCH (09:24)
[2025-07-21] MEDS: CHOLECALCIFEROL 25 MCG (1000 UNITS) TAB PO SCH (09:24)
[2025-07-21] MEDS: POTASSIUM CHLORIDE 10 MEQ TABCR PO SCH (09:26)
--- NOTE | 2025-07-21 09:36 | XRay Report ---
XR chest 1V portable CLINICAL HISTORY: reassess CHF COMPARISON STUDY: 07/20/2025 FINDINGS: Stable cardiomegaly with mild pulmonary vascular congestion. Stable hazy opacity in the brandon g bases with blunting of the costophrenic angles. No pneumothorax. IMPRESSION: Stable exam. ACT 112: Negative or not required by law. Electronically signed by: Brandan Suero M.D. 07/21/2025 9:35 AM
--- NOTE | 2025-07-21 10:49 | Hospitalist Progress Note ---
"Date of Service July 21, 2025 Assessment & Plan (1) Acute congestive heart failure: (2) Mitral valve stenosis, severe: (3) Atrial fibrillation: (4) Diabetes mellitus, type II: Plan This is an 89 year old female with past medical history of CHF, A fib, hx CVA who presented to the ED on 07/20/2025 for SOB. While in the ED, her CXR was found to be consistent with CHF. Her CBC was without leukocytosis or anemia. PT/INR is pending. BMP w/ stable renal function & electrolytes. LFTs w/ mild bump of TB to 1.3 but appears consistent w/ previous lab draws. Initial troponin was elevated at 14.4, and procal is negative. BNP is pending. UA does have 2+ leuks w/ a UC pending. She was given 40mg IV Lasix. #Acute CHF | Acute hypoxic respiratory failure w/ hypoxic readings at PCP office in 50s after exertion. Now stable on 2L of oxygen via nasal cannula CXR: consistent w/ CHF. & repeat CXR 07/21 notes stable exam. Last Echo 11/2024 --> EF 60-65%; severe mitral stenosis. --> repeat echo pending. Trop continues to mildly rise, now at 18.3, continue to check q6h until it downtrends. EKG w/o signs of ischemia & no CP, likely demand in the setting of hypoxia + acute CHF. BNP elevated at 1277. Continue 40mg IV Lasix BID17; Strict I&O's, daily weights (prefer standing if able). PT/OT consulted, appreciate recommendations. #Hypomagnesemia Mag low 07/21 @ 1.5, s/p repletion increased KCl to 20meq BID while aggressively diuresing. Continue to monitor electrolytes & replace as necessary. #Positive urinalysis w/ UA + on admission however patient is without urinary symptoms, no leukocytosis, & neg procal - suspect asymptomatic bacteruria defer abx on admission UC pending. #Cough| Congestion -improving Recently completed a course of Azithromycin outpatient Procal negative; Respiratory Biofire negative. No leukocytosis. Mucinex BID prn. #A fib | Mitral valve stenosis | HTN rate controlled a fib, continue Eliquis + metoprolol succinate BID HTN stable, continue amlodipine. #Type 2 DM A1c 06/2025 - 5.7% On metformin outpatient - can continue inpatient. defer SSI on admission, can add if BG consistently elevated. #HLD - statin #Hx CVA - ASA #Mental health -Duloxetine #Neuropathy - Lyrica #Constipation - Senna BID, Miralax prn. DVT prophylaxis: Eliquis Code: full Updated daughter at bedside 07/21 Admission and Anticipated Discharge Date Admission Date: July 20, 2025 Supervising Physician Co-Signing Physician Notes The patient was not seen by me. The chart was reviewed. Case discussed with GETACHEW Mitchell. Agree with assessment and plan Subjective Lucinda was seen & examined this morning with her daughter at bedside. She reports she is feeling better today. She states her SOB and cough have improved. she denied any CP. Physical Exam Physical Exam: General: NAD, VS: BP 117/72; P69; R16; T36.4C Resp: normal respiratory effort, lungs clear to auscultation but diminshed throughout CV: + murmur, irregularly irregular Extremities: Moves all extremities, no edema Neuro: A&O x3, Skin: intact, no lesions noted Results & Data Results & Data Vital Signs (Past 12 Hours) Vital Signs Temp Pulse Resp BP Pulse Ox O2 Del Method O2 Flow Rate 07/21/25 07:39 36.3 C L 77 18 145/83 H 96 Nasal Cannula 2 07/21/25 02:30 36.6 C 77 16 117/70 92 Nasal Cannula 2 07/20/25 23:10 36.5 C 86 15 113/63 94 Nasal Cannula 2 PG Care Time/CCT Total # of Minutes Spent Total Time Spent with Patient: Total time spent is greater than 50% in coordination of care (as documented) at patient's floor/unit and/or counseling patient: Coding Level of Care Code 70037 SUB INP/OBS CARE 2/35MIN Diagnoses Acute congestive heart failure I50.9 Mitral valve stenosis, severe I05.0 Atrial fibrillation I48.91 Atrial fibrillation type: unspecified Diabetes mellitus, type II E11.9 (3) Atrial fibrillation Atrial fibrillation type: unspecified Qualified Code(s): I48.91 - Unspecified atrial fibrillation"
[2025-07-22 08:52] LABS: Hematocrit (blood only) 45.4 % (37.0-47.0); Hemoglobin 14.8 g/dL (12.0-16.0); Mean Corpuscular Hemoglobin 32.2 pg (25.0-34.0); Mean Corpuscular Volume 98.7 fL (80.0-100.0); Platelet Count 197 K/uL (130-400); RDW Standard Deviation 51.5 fL (36.4-46.3); Red Blood Count 4.60 M/uL (4.20-5.40); White Blood Count 6.69 K/ul (4.8-10.8)
[2025-07-22 09:07] LABS: Anion Gap 5.0 (3-11); Blood Urea Nitrogen 24.0 mg/dl (6-23); Calcium 9.8 mg/dl (8.6-10.3); Carbon Dioxide 36.0 mmol/L (21-32); Chloride 98.0 mmol/L (98-107); Creatinine Clr Calc Pharmacy 34.2 ml/min; Glucose 208.0 mg/dl (70-99(Fasting)); Magnesium 1.8 mg/dl (1.7-2.4); Potassium 4.3 mmol/L (3.5-5.1); Sodium 139.0 mmol/L (136-145)
[2025-07-22] MEDS: DICLOFENAC SOD 1% GEL 100 GM TUBE EXT PRN (09:31)
[2025-07-22] MEDS: POTASSIUM CHLORIDE CRTAB 20 MEQ TABCR PO STA (11:23)
--- NOTE | 2025-07-22 11:50 | Hospitalist Progress Note ---
"Date of Service July 22, 2025 Assessment & Plan (1) Acute congestive heart failure: (2) Mitral valve stenosis, severe: (3) Atrial fibrillation: (4) Diabetes mellitus, type II: Plan This is an 89 year old female with past medical history of CHF, A fib, hx CVA who presented to the ED on 07/20/2025 for SOB. #Acute on chronic HFpEF | Acute hypoxic respiratory failure | demand ischemia (resolved) w/ hypoxic readings at PCP office in 50s after exertion. Now stable on 2L of oxygen via nasal cannula CXR: consistent w/ CHF. & repeat CXR 07/21 notes stable exam. - plan to repeat CXR on 07/23 to reassess progress. Last Echo 11/2024 --> EF 60-65%; severe mitral stenosis. --> repeat echo pending. Trop peaked at 18.3 and has since down-trended (15) ; EKG w/o signs of ischemia & no CP, likely demand in the setting of hypoxia + acute CHF. BNP elevated at 1277. Continue 40mg IV Lasix daily; Strict I&O's, daily weights (prefer standing if able). - stable at 53kg. PT/OT consulted - recommending rehab on dc. #Hypomagnesemia - resolved. Mag low 07/21 @ 1.5, s/p repletion - now stable at 1.8 increased KCl to 20meq daily while aggressively diuresing. - K stable at 4.3. Continue to monitor electrolytes & replace as necessary. #Positive urinalysis w/ UA + on admission however patient is without urinary symptoms, no leukocytosis, & neg procal - suspect asymptomatic bacteruria defer abx; UC contaminated. #Cough| Congestion -improving Recently completed a course of Azithromycin outpatient Procal negative; Respiratory Biofire negative. No leukocytosis. Mucinex BID prn. #Permanent A fib | Mitral valve stenosis | HTN rate controlled a fib, continue Eliquis + metoprolol succinate BID HTN stable, continue amlodipine. #Type 2 DM A1c 06/2025 - 5.7% On metformin outpatient - can continue inpatient. defer SSI on admission, can add if BG consistently elevated. #HLD - statin #Hx CVA - ASA #Mental health -Duloxetine #Neuropathy - Lyrica #Constipation - Senna BID, Miralax prn. DVT prophylaxis: Eliquis Code: full Admission and Anticipated Discharge Date Admission Date: July 20, 2025 Supervising Physician Co-Signing Physician Notes The patient was not seen by me. The chart was reviewed. Case discussed with GETACHEW Mitchell. Agree with assessment and plan Subjective Lucinda was seen & examined this morning. She reports that she is feeling okay today. She denied any CP, SOB. Reports her cough is improved. Physical Exam Physical Exam: General: NAD, VS: BP 97/62; P74; R17; T36.4C Resp: normal respiratory effort, lungs clear to auscultation, diminished at bases. CV: irregularly irregular, no+ murmur, Extremities: Moves all extremities, no edema Neuro: A&O x3 Skin: intact, no lesions noted Results & Data Results & Data Vital Signs (Past 12 Hours) Vital Signs Temp Pulse Pulse Resp BP BP Pulse Ox 07/22/25 11:00 74 17 97/62 L 90 07/22/25 08:37 36.4 C L 78 16 105/64 95 07/22/25 08:25 07/22/25 07:40 79 07/22/25 05:09 36.2 C L 79 16 148/79 H 92 O2 Del Method O2 Flow Rate 07/22/25 11:00 Room Air 07/22/25 08:37 Nasal Cannula 2 07/22/25 08:25 Nasal Cannula 2 07/22/25 07:40 07/22/25 05:09 Nasal Cannula 2 PG Care Time/CCT Total # of Minutes Spent Total Time Spent with Patient: Total time spent is greater than 50% in coordination of care (as documented) at patient's floor/unit and/or counseling patient: Coding Level of Care Code 93795 SUB INP/OBS CARE 2/35MIN Diagnoses Acute congestive heart failure I50.9 Mitral valve stenosis, severe I05.0 Atrial fibrillation I48.91 Atrial fibrillation type: unspecified Diabetes mellitus, type II E11.9 (3) Atrial fibrillation Atrial fibrillation type: unspecified Qualified Code(s): I48.91 - Unspecified atrial fibrillation"
--- NOTE | 2025-07-22 15:20 | XCELERA ---
[id number]
[2025-07-23 06:11] LABS: Hematocrit (blood only) 43.3 % (37.0-47.0); Hemoglobin 14.2 g/dL (12.0-16.0); Mean Corpuscular Hemoglobin 32.3 pg (25.0-34.0); Mean Corpuscular Volume 98.4 fL (80.0-100.0); Platelet Count 203 K/uL (130-400); RDW Standard Deviation 51.2 fL (36.4-46.3); Red Blood Count 4.40 M/uL (4.20-5.40); White Blood Count 6.53 K/ul (4.8-10.8)
[2025-07-23 06:27] LABS: Anion Gap 7.0 (3-11); Blood Urea Nitrogen 25.0 mg/dl (6-23); Calcium 9.4 mg/dl (8.6-10.3); Carbon Dioxide 32.0 mmol/L (21-32); Chloride 101.0 mmol/L (98-107); Creatinine Clr Calc Pharmacy 37.4 ml/min; Glucose 122.0 mg/dl (70-99(Fasting)); Potassium 4.1 mmol/L (3.5-5.1); Sodium 140.0 mmol/L (136-145)
--- NOTE | 2025-07-23 08:18 | Electrocardiogram Report ---
Test Reason : Blood Pressure : */* mmHG Vent. Rate : 77 BPM Atrial Rate : * BPM P-R Int : * ms QRS Dur : 80 ms QT Int : 398 ms P-R-T Axes : * -81 -13 degrees QTcB Int : 450 ms Poor data quality, interpretation may be adversely affected Atrial fibrillation Left axis deviation T wave abnormality, consider anterior ischemia Abnormal ECG When compared with ECG of 26-Nov-2024 17:11, No significant change Confirmed by Tariq Tolliver ([id number]) on 07/23/2025 8:17:35 AM Referred By: Evan Carrillo Confirmed By: Tariq Tolliver
[2025-07-23] MEDS: POTASSIUM CHLORIDE 10 MEQ TABCR PO SCH (08:42)
[2025-07-23] MEDS ORDERED: FUROSEMIDE 40 MG/4 ML VIAL IV SCH (09:00)
--- NOTE | 2025-07-23 09:07 | XRay Report ---
XR chest 1V portable CLINICAL HISTORY: reassess chf COMPARISON STUDY: 07/21/2025 FINDINGS: Stable mild cardiomegaly with mild pulmonary vascular congestion. Stable very small pleural effusions. No pneumothorax. IMPRESSION: Stable exam. ACT 112: Negative or not required by law. Electronically signed by: Brandan Suero M.D. 07/23/2025 9:06 AM
--- NOTE | 2025-07-23 11:25 | Hospitalist Progress Note ---
"Date of Service July 23, 2025 Assessment & Plan (1) Acute congestive heart failure: (2) Mitral valve stenosis, severe: (3) Atrial fibrillation: (4) Diabetes mellitus, type II: Plan This is an 89 year old female with past medical history of CHF, A fib, hx CVA who presented to the ED on 07/20/2025 for SOB. #Acute on chronic HFpEF | Acute hypoxic respiratory failure | demand ischemia (resolved) w/ hypoxic readings at PCP office in 50s after exertion. Now stable on room air. Repeat CXR 07/23 notes stable exam w/ very small pleural effusions Echo: Ef 60-65%: moderate LVH; severe mitral stenosis; moderate mitral regurg; moderate tricuspid regurg. Trop peaked at 18.3 and has since down-trended (15) ; EKG w/o signs of ischemia & no CP, secondary to demand ischemia in the setting of hypoxia + acute CHF. BNP elevated on admission at 1277. Weight now 52.4 kg, back to baseline. PT/OT consulted - recommending rehab on dc. --> discussed w/ pt 07/23 & she elects to return home w/ home health. #Hypomagnesemia - resolved. Mag low 07/21 @ 1.5, s/p repletion - now stable at 1.8 K stable at 4.1. Continue daily KCl supplement. #Positive urinalysis w/ UA + on admission however patient is without urinary symptoms, no leukocytosis, & neg procal - suspect asymptomatic bacteruria defer abx; UC contaminated. #Cough| Congestion -improving Recently completed a course of Azithromycin outpatient. Procal negative; Respiratory Biofire negative. No leukocytosis. Mucinex BID prn. #Permanent A fib | Mitral valve stenosis | HTN rate controlled a fib, continue Eliquis + metoprolol succinate BID HTN stable, continue amlodipine. #Type 2 DM A1c 06/2025 - 5.7% On metformin outpatient - can continue inpatient. defer SSI on admission, can add if BG consistently elevated. #HLD - statin #Hx CVA - ASA #Mental health -Duloxetine #Neuropathy - Lyrica #Constipation - Senna BID, Miralax prn. #Underweight with BMI 18.6 DVT prophylaxis: Eliquis Code: full Anticipate discharge home 07/24 Admission and Anticipated Discharge Date Admission Date: July 20, 2025 Supervising Physician Co-Signing Physician Notes The patient was not seen by me. The chart was reviewed. Case discussed with GETACHEW Mitchell. Agree with assessment and plan Subjective Lucinda was seen & examined this morning. SHe reports she is feeling well today, she denies CP/SOB. She states she does feel weak. Rehab was discussed with patient but she reports she would rather return home. Physical Exam Physical Exam: General: NAD, VS: BP 105/66; P65; R21; T36.2C Resp: normal respiratory effort, lungs diminished at bases b/l but clear throughout. Cardio: irregularly irregular, +Murmur Extremities: Moves all extremities, no edema Neuro: A&O x3, Skin: intact, no lesions noted Results & Data Results & Data Vital Signs (Past 12 Hours) Vital Signs Temp Pulse Pulse Resp BP BP Pulse Ox 07/23/25 11:03 65 21 105/66 93 07/23/25 08:20 36.2 C L 75 20 115/61 98 07/23/25 08:00 07/23/25 06:23 71 07/23/25 02:04 36.3 C L 76 16 125/84 93 O2 Del Method O2 Flow Rate 07/23/25 11:03 Room Air 07/23/25 08:20 Nasal Cannula 1 07/23/25 08:00 Nasal Cannula 1 07/23/25 06:23 07/23/25 02:04 Nasal Cannula 1 PG Care Time/CCT Total # of Minutes Spent Total Time Spent with Patient: Total time spent is greater than 50% in coordination of care (as documented) at patient's floor/unit and/or counseling patient: Coding Level of Care Code 05922 SUB INP/OBS CARE 2/35MIN Diagnoses Acute congestive heart failure I50.9 Mitral valve stenosis, severe I05.0 Atrial fibrillation I48.91 Atrial fibrillation type: unspecified Diabetes mellitus, type II E11.9 (3) Atrial fibrillation Atrial fibrillation type: unspecified Qualified Code(s): I48.91 - Unspecified atrial fibrillation"
[2025-07-24 07:06] LABS: Anion Gap 6.0 (3-11); Blood Urea Nitrogen 24.0 mg/dl (6-23); Calcium 9.3 mg/dl (8.6-10.3); Carbon Dioxide 33.0 mmol/L (21-32); Chloride 101.0 mmol/L (98-107); Creatinine Clr Calc Pharmacy 34.0 ml/min; Glucose 116.0 mg/dl (70-99(Fasting)); Potassium 4.2 mmol/L (3.5-5.1); Sodium 140.0 mmol/L (136-145)
[2025-07-24 07:28] VITALS: BP 133/73; PULSE 72; RESP 16; TEMP 97.5
[2025-07-24] MEDS: POTASSIUM CHLORIDE 10 MEQ TABCR PO SCH (08:17)
[2025-07-24 10:59] VITALS: O2SAT 93
--- NOTE | 2025-07-24 11:56 | Discharge Summary ---
"Discharge Summary Date of Service July 24, 2025 Principal Dx & Hospital Course #1 = Principal Diagnosis (1) Acute congestive heart failure: (2) Mitral valve stenosis, severe: (3) Atrial fibrillation: (4) Diabetes mellitus, type II: Plan This is an 89 year old female with past medical history of CHF, A fib, hx CVA who presented to the ED on 07/20/2025 for SOB. #Acute on chronic HFpEF | Acute hypoxic respiratory failure | demand ischemia (resolved) w/ hypoxic readings at PCP office in 50s after exertion. Now stable on room air. BNP elevated on admission at 1277. Repeat CXR 07/23 notes stable exam w/ very small pleural effusions Echo: Ef 60-65%: moderate LVH; severe mitral stenosis; moderate mitral regurg; moderate tricuspid regurg. Trop peaked at 18.3 and has since down-trended (15) ; EKG w/o signs of ischemia & no CP, secondary to demand ischemia in the setting of hypoxia + acute CHF. s/p IV Lasix while inpatient --> adjusted Lasix to dosing 40mg every other day on outpatient basis. Has close follow up w/ cardiology in the beg of August. Weight now 52.1 kg, back to baseline. PT/OT consulted - recommending rehab on dc. --> discussed w/ pt & daughter 07/24, trial of walking in hallway w/ daughter present & she felt comfortable having her mother return home w/ home health services. #Hypomagnesemia - resolved. Mag low 07/21 @ 1.5, s/p repletion - now stable at 1.8 K stable at 4.1. Continue daily KCl supplement. #Positive urinalysis w/ UA + on admission however patient is without urinary symptoms, no leukocytosis, & neg procal - suspect asymptomatic bacteruria defer abx; UC contaminated. #Cough| Congestion -resolved Recently completed a course of Azithromycin outpatient. Procal negative; Respiratory Biofire negative. No leukocytosis. Mucinex BID prn. #Permanent A fib | Mitral valve stenosis | HTN rate controlled a fib, continue Eliquis + metoprolol succinate BID HTN stable, continue amlodipine. #Type 2 DM A1c 06/2025 - 5.7% On metformin outpatient - continue #HLD - statin #Hx CVA - ASA #Mental health -Duloxetine #Neuropathy - Lyrica #Constipation - Senna BID, Miralax prn. #Underweight with BMI 18.6 Updated daughter at bedside 07/24, pt discharged home w/ home health Notes For Next Care Provider Increased Lasix to 40mg every other day on dc. Admission HPI Per Admitting Provider This is an 89 year old female with past medical history of CHF, A fib, hx CVA who presented to the ED on 07/20/2025 for SOB. The patient was seen & examined this afternoon with her daughter at bedside. Lucinda reports that she has been having ongoing shortness of breath and cough for about 1 week. She also has been having nasal congestion w/ bright yellow discharge from her nose. 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 She reports no improvement of symptoms following her z pack. She denies CP. Reports minimal LE edema. Reports she has had poor appetite but has been gaining weight. Her Lasix has also been reduced to every other day dosing at home recently as well. She denies any N/V, abdominal pain, or changes in urination/bowel movements. While in the ED, her CXR was found to be consistent with CHF. Her CBC was without leukocytosis or anemia. PT/INR is pending. BMP w/ stable renal function & electrolytes. LFTs w/ mild bump of TB to 1.3 but appears consistent w/ previous lab draws. Initial troponin was elevated at 14.4, and procal is negative. BNP is pending. UA does have 2+ leuks w/ a UC pending. She was given 40mg IV Lasix. Code discussion did take place and she does confirm that she is a full code. Discharge Exam General: NAD, VS: BP 133/73; P72; R16; T36.4C Resp: normal respiratory effort, lungs clear, diminished at bases b/l. Extremities: Moves all extremities, no edema Neuro: A&O x3 Skin: intact, no lesions noted Discharge Plan Discharge Items Patient Disposition: Home - Home Health Services Reason For Visit: SOB Discharge Diagnosis: Acute CHF exacerbation Condition on Discharge: Good Activity: Resume your previous activity Non-emergency contact: Primary Care Provider and Supervisor Paper Machine Call non-emergency contact if: you have any medication questions and your symptoms worsen Follow-up/Referrals: Preston Moreno MD [Primary Care Provider] - Tariq Tolliver MD [Physician] - Rukhsana Medina PA-C [Physician Veterinarian Helper] - Diet: Carb Consistent or DM2 and Heart Healthy Addtl Attending Provider Instructions: Ms. Young, You were recently hospitalized for shortness of breath. You were found to be in an acute exacerbation of your congestive heart failure. Medications: Your medication list has been reviewed and reconciled upon discharge to ensure accuracy and continuity of care. An updated list of all your medications is included with your hospital discharge paperwork. Please review this list closely, and make note of any changes. Upon discharge, please start taking 2 of your 20mg Lasix tablets every other day. Your baseline weight is ~ 115 lbs. If you gain > 2 lbs in 1 day OR > 4 lbs in 1 week, please contact your PCP or full stack java developer for further recommendations. Take your medications as instructed; do not skip a dose of your medicines. Make sure all of your doctors know every medicine you are taking (including clzo-riw-ofohsho medicines, vitamins, and supplements). Call your primary care provider before taking any new medicines (including over- the-counter medicines, vitamins, and supplements), because some of these may interact with your current medications, or may make your symptoms worse. Tell your primary care provider if you cannot afford your medications. Activity: You can do normal everyday activities as your body allows. Take rest breaks if you feel tired. Do not overexert. Stop activity if you have pain, shortness of breath or feel dizzy. Follow-up appointments: Make an appointment with your primary care physician within one week of discharge. A copy of this summary will be sent to them. Every time you see your primary care physician, or any other doctor, bring your medication list, and a list of questions. Please follow up with cardiology and the heart failure clinic as scheduled. CONTACT YOUR PRIMARY CARE PROVIDER if you experience any of the following: Shortness of breath or difficulty breathing Fevers or chills Feeling tired with normal activity or experiencing dizziness or fainting Difficulty following your treatment plan, or difficulty taking medications CALL 911 OR GO TO THE EMERGENCY DEPARTMENT if you experience any of the following: Severe abdominal pain or nausea/vomiting Severe chest pain, or chest pain that radiates (moves) to your jaw or arm Sudden, severe shortness of breath or difficulty breathing Thank you for allowing us to participate in your care. Pending Studies at Discharge: No Stand-Alone Forms: My [facility], Smoking Cessation Medications and DC Order Prescriptions: Continued metoprolol succinate 50 mg tablet extended release 24 hr 50 mg PO BID Qty: 180 3RF duloxetine 20 mg capsule,delayed release(DR/EC) 20 mg PO QAM Qty: 90 3RF atorvastatin 20 mg tablet 20 mg PO HS Qty: 90 3RF Eliquis 2.5 mg tablet 2.5 mg PO BID Qty: 180 3RF potassium chloride 10 mEq tablet,ER particles/crystals 10 meq PO DAILY Qty: 90 3RF pregabalin [Lyrica] 75 mg capsule 75 mg PO HS Qty: 90 1RF metformin 500 mg tablet extended release 24 hr 500 mg PO DAILY Qty: 90 3RF polyethylene glycol 3350 [Miralax] 17 gram powder in packet 17 g PO DAILY PRN (Reason: Constipation) Patient Comments: 07/20- otc unable to verify acetaminophen [Tylenol Extra Strength] 500 mg tablet 1,000 mg PO TID PRN (Reason: Pain) Patient Comments: 07/20- otc unable to verify cholecalciferol (vitamin D3) [Vitamin D3] 25 mcg (1,000 unit) capsule 1,000 unit PO DAILY Patient Comments: 07/20- otc unable to verify amlodipine 2.5 mg tablet 2.5 mg PO DAILY Qty: 90 3RF collagen 1 ea miscellaneous DAILY Patient Comments: 07/20- otc unable to verify cyanocobalamin (vitamin B-12) [Vitamin B-12] 1,000 mcg Tablet 1,000 mcg PO QAM Patient Comments: 07/20- otc unable to verify sennosides-docusate sodium [Senna-S] 8.6-50 mg Tablet 1 tab PO BID Patient Comments: 07/20- otc unable to verify aspirin 81 mg Tablet,Delayed Release (Dr/Ec) 81 mg PO QAM Patient Comments: 07/20- otc unable to verify calcium carbonate-vitamin D3 [Calcium 600 + D(3)] 600 mg-10 mcg (400 unit) Tablet 1 tab PO HS Patient Comments: 07/20- otc unable to verify betamethasone dipropionate 0.05 % cream 1 applic TOPICAL UD PRN (Reason: Other) Patient Comments: 07/20-last filled 07/28/24 Changed furosemide 20 mg tablet 40 mg PO Q OTHER DAY PRN (Reason: Other) Qty: 0 0RF Rx Instructions: May increase to 40 mg daily as needed for weight gain, swelling, SOB Discharge Orders: Discharge Order (Routine); Ordered 07/24/25 Ordered By: Esperanza Jackson Admission Data Admit Date/Time: 07/20/25 14:27 Attending Provider: Alek Overton Admit Provider: Alek Overton Primary Care Provider: Preston Moreno Other Providers: Dustin Avendano; Alek Overton Other Interventions: Discharge Summary Assessment (RN) Last Done: 07/24/25 12:09 Hospital Stay Data Consultations 07/20/25 13:41 ED Decision to Admit Stat 07/20/25 14:08 ED Decision to Admit Stat Pending Results Patient Have Any Pending Studies at Discharge: No Discharge Instructions Given to Patient (Per Discharging Provider) Ms. Young, You were recently hospitalized for shortness of breath. You were found to be in an acute exacerbation of your congestive heart failure. Medications: Your medication list has been reviewed and reconciled upon discharge to ensure accuracy and continuity of care. An updated list of all your medications is included with your hospital discharge paperwork. Please review this list closely, and make note of any changes. Upon discharge, please start taking 2 of your 20mg Lasix tablets every other day. Your baseline weight is ~ 115 lbs. If you gain > 2 lbs in 1 day OR > 4 lbs in 1 week, please contact your PCP or full stack java developer for further recommendations. Take your medications as instructed; do not skip a dose of your medicines. Make sure all of your doctors know every medicine you are taking (including zkst-kvv-ijkxmfk medicines, vitamins, and supplements). Call your primary care provider before taking any new medicines (including over- the-counter medicines, vitamins, and supplements), because some of these may interact with your current medications, or may make your symptoms worse. Tell your primary care provider if you cannot afford your medications. Activity: You can do normal everyday activities as your body allows. Take rest breaks if you feel tired. Do not overexert. Stop activity if you have pain, shortness of breath or feel dizzy. Follow-up appointments: Make an appointment with your primary care physician within one week of discharge. A copy of this summary will be sent to them. Every time you see your primary care physician, or any other doctor, bring your medication list, and a list of questions. Please follow up with cardiology and the heart failure clinic as scheduled. CONTACT YOUR PRIMARY CARE PROVIDER if you experience any of the following: Shortness of breath or difficulty breathing Fevers or chills Feeling tired with normal activity or experiencing dizziness or fainting Difficulty following your treatment plan, or difficulty taking medications CALL 911 OR GO TO THE EMERGENCY DEPARTMENT if you experience any of the following: Severe abdominal pain or nausea/vomiting Severe chest pain, or chest pain that radiates (moves) to your jaw or arm Sudden, severe shortness of breath or difficulty breathing Thank you for allowing us to participate in your care. Supervising Physician Co-Signing Physician Notes The patient was not seen by me. The chart was reviewed. Case discussed with GETACHEW Mitchell. Agree with assessment and plan Total Time Total Time Spent Total Time Spent (In Minutes): 50 Total Time Includes: Examination of the Patient, Discharge Planning and Medication Reconciliation Coding Level of Care Code 04704 INP/OBS DISCH >30 MIN Diagnoses Acute congestive heart failure I50.9 Mitral valve stenosis, severe I05.0 Atrial fibrillation I48.91 Atrial fibrillation type: unspecified Diabetes mellitus, type II E11.9"
== END 2025-07-24 14:16 | disposition home health service (06) | DRG 291 ==
LOC: SUATTDRO → ED 11:58 → 2S 14:27 → 3N 07-23 22:07